=== PATIENT | female | born 1960 | race Caucasian/White ===

== ENCOUNTER 2023-11-15 10:42 | Outpatient (OUT) | payer BC, SELFPAY ==
[2023-11-15 12:13] LABS: Estimated Average Glucose 108 mg/dL; Glycohemoglobin A1C 5.4 % (4.5-6.2)
== END 2023-11-15 10:43 | disposition home or self-care (01) ==
LOC: LAB 10:47
PROVIDERS: PCP Family Medicine; Visit Provider Internal Medicine Cardiovascular Disease
DX: R73.03 Prediabetes (principal)
CPT/HCPCS: 36415; 83036

== ENCOUNTER 2025-03-13 09:43 | Outpatient (OUT) | payer OTHER, SELFPAY ==
--- NOTE | 2025-03-13 09:40 | NM_ITS ---
Patient Name: SAHARA BARRY MR#: [id number] : 1960 Exam Date: 03/13/2025 Ordering Doctor: MICHELLE NÚÑEZ RADIOLOGY REPORT PROCEDURE: NM RADHA PERF SPECT REST STR COMPARISON: None. INDICATIONS: PRE PROCEDURE CARDIOVASCULAR EXAM, CHEST PAIN, DYSPNEA TECHNIQUE: Exam Description: Stress/Rest one day protocol gated SPECT Rest Imagin.9 mCi Tc-99m Cardiolite IV on 03/13/2025 Stress Imaging 30.5 mCi Tc-99m Cardiolite IV on 03/13/2025 Exercise Protocol: 0.4 mg Lexiscan given IV Heart Rate (bpm): Rest: 51 Max: 100 PMHR: 63 Blood Pressure: Rest: 160/79 Max: 160/79 Symptoms: For more details, please see separate cardiac stress test report. FINDINGS: QUALITY OF STUDY: Good PERFUSION DEFECT: LOCATION: N/A SIZE: N/A SEVERITY: N/A TYPE: N/A WALL MOTION: Normal wall motion LV SIZE: 71 mL. TID / TCD: 0.9 LVEF: Calculated EF 80%. SUMMARY: Myocardial perfusion imaging study is normal CONCLUSION: 1. Myocardial perfusion is normal with soft tissue attenuation. 2. Global left ventricular systolic function is hyperdynamic; ejection fraction is 80%. This is likely an overestimate due to small heart size. 3. No evidence of significant transient ischemic dilatation. Dictated by: Marjan Carr M.D. on 03/14/2025 at 13:08 Approved by: Marjan Carr M.D. on 03/14/2025 at 13:11
--- OUTSIDE RECORDS SUMMARY | 2025-03-13 09:58 | XMS_ITS | CCD ---
Author Organization [facility] Care Team Providers Care Kinesiotherapist Name Role Phone RODNEY LAMB Attending Unavailable PETZNICK, ANIBAL Primary Care Unavailable RODNEY LAMB Admitting Unavailable RODNEY LAMB Attending Unavailable PETZNICK, ANIBAL Primary Care Unavailable RODNEY LAMB Attending Unavailable PETZNICK, ANIBAL Primary Care Unavailable RODNEY LAMB Attending Unavailable PETZNICK, ANIBAL Primary Care Unavailable PETZNICK, ANIBAL Primary Care Unavailable SYED ZARAGOZA Attending Unavailable RODNEY LAMB Attending Unavailable PETZNICK, ANIBAL Primary Care Unavailable Petdelioick, Anibal C Unavailable Unavailable Rodney Lamb Unavailable Unavailable PetdelioickAnibal C Primary Care Provider Rodney Lamb Unavailable Unavailable Santo, Harkeet Unavailable Unavailable [facility] Unavailable Unavailable Petznick, Anibal C Unavailable Unavailable Unavailable Unavailable Unavailable Louis Larson Unavailable Unavailable Unavailable SANTHOSH MARIA Consulting Unavailable ANIBAL JUAN Primary Care Unavailable RODNEY LAMB Admitting Unavailable RODNEY LAMB Attending Unavailable ART HIGHTOWER Consulting Unavailable RODNEY LAMB Referring Unavailable PETANIBAL SHAH Primary Care Unavailable Petznick Anibal MONDRAGON Primary Care Provider Petpablo, DO Ashton Primary Care Provider Petdelioick, DO Ashton Attending Provider [phone] Petznick, Anibal Lombardo Primary Care Provider Abbi ISRAEL, Angi Unavailable Thierry ISRAEL, Jeremias Unavailable Rocky Shields Unavailable Rlaeighzana Rex Unavailable Petpablo, Dr. Anibal Lombardo Primary Care Un available MD RODNEY LAMB Attending Dedra vailable Muoh, Denise Referring Unavailable Muoh, Denise Attending Unavailable Petznick, Dr. Anibal Lombardo Primary Care Un available ADONIS, MD RODNEY MENDEZ Attending Dedra vailable Petznick, Dr. Anibal Lombardo Primary Care Un available Petznick, Dr. Anibal Lombardo Primary Care Un available Santo, Dr. Glenna Kim Attending Unavai lable Petznick, Dr. Anibal Lombardo Primary Care Un available MD RODNEY LAMB Attending Dedra vailable ADONIS, MD RODNEY MENDEZ Attending Dedra vailable Petznick, Dr. Anibal Lombardo Primary Care Un available Petznick, DO Anibal [facility] Care Provider MD Everardo Phillips Emergency Provider Rodney Lamb Attending Unavailable Rodney Lamb Referring Unavailable Petznick, Dr. Anibal Lombardo Primary Care Un available Muoh, Dr. Denise Stafford Attending Unavailab le Petznick, Dr. Anibal Lombardo Referring Un available Petznick, Dr. Anibal Lombardo Primary Care Un available Becerra, Dr. Chase Attending Unavailable Becerra, Dr. Chase Referring Unavailable Petznick, Dr. Anibal Lombardo Primary Care Un available Somasundaram, Dr. Lees Attending Unav ailable Petznshane, Dr. Anibal Lombardo Primary Care Un available Rodney Lamb Attending Unavailable Rodney Lamb Referring Unavailable Petznick, Dr. Anibal Lombardo Primary Care Un available Rodney Lamb Attending Unavailable Rodney Lamb Referring Unavailable Petznick, Dr. Anibal Lombardo Primary Care Un available MUTNAL, AMAR Attending Unavailable MUTNAL, AMAR Admitting Unavailable PETZNICK, ANIBAL LOMBARDO Primary Care Unavai lable Petznick DO, Anibal Lombardo Primary Care Provid er Thierry ISRAEL, Jeremias Unavailable Petznick DO, Anibal Lombardo Primary Care Provid er OLEG MALLOY Attending Unavailabl e PETZNICK, ANIBAL LOMBARDO Primary Care UnaBENJI Bowden Referring Unavailable OLEG MALLOY Referring Unavailabl e PETZNICK, ANIBAL LOMBARDO Primary Care Unavai labsera Petznick, DO Anibal Primary Care Provider MD Zoey Gonzalez Attending Provider Petznick DO, Anibal C Unavailable Petznick DO, Anibal C Primary Care Provider [phone] Petznick DO, Anibal C Primary Care Provider WU Mckee Attending Provider Petznick DO, Anibal Lombardo Primary Care Provid er SARABJIT PHILLIPS Attending Unavailable SURESH, RENA Referring Unavailable PETZNICK, ANIBAL C Primary Care Unavailable RODNEY LAMB Referring Unavailable PETZNICK, ANIBAL C Primary Care Unavailable PETZNICK, ANIBAL C Primary Care Unavailable SYED ZARAGOZA Attending Unavailable SURESH, RENA Attending Unavailable SURESH, RENA Referring Unavailable PETZNICK, ANIBAL C Primary Care Unavailable SURESH, RENA Referring Unavailable PETZNICK, ANIBAL C Primary Care Unavailable SCOOBY BECERRAA Attending Unavailable PETZNICK, ANIBAL C Primary Care Unavailable Petznick DO, Ainbal C Primary Care Provider Petznick DO, Anibal Primary Care Provider Galen ISRAEL, Immike Attending Provider Petznick DO, Anibal Primary Care Provider Galen ISRAEL, Immike Attending Provider Petznick DO, Anibal Primary Care Provider Galen ISRAEL, Immike Attending Provider [phone] Petznick, Anibal Primary Care Unavailable Asaad, Imad Admitting Unavailable Asaad, Imad Attending Unavailable Petznick, Anibal Primary Care Unavailable Asaad, Imad Admitting Unavailable Asaad, Imad Attending Unavailable Asaad , Immike Other Provider Rex Mckee APRN Attending Provider PetAnibal shah DO Primary Care Provider [phone] Petznick DOAnibal Primary Care Provid er Sultan ISRAEL, Samuel Unavailable NONE, NONE Unavailable Unavailable Petznick, Anibal C Unavailable [phone] RODNEY LAMB Attending Unavailable PETZNICK, ANIBAL Álvarez Primary Care Unavailable RODNEY LAMB Referring Unavailable PETZNICK, ANIBAL Álvarez Primary Care Unavailable RODNEY LAMB Attending Unavailable PETPABLO, ANIBAL Álvarez Primary Care Unavailable PERHALEXANDRA, CHRIS Anne Referring Unavailable PETZNICK, ANIBAL LOMBARDO Primary Care JOSH El Referring Unavailable PETZNICK, ANIBAL LOMBARDO [facility] PER[facility]ACHRIS Referring Unavailable PETZNICK, ANIBAL LOMBARDO Primary Care Unavahina lable MICHELLE NÚÑEZ Referring Unavailable NIYA, MICHELLE Admitting Unavailable NIYA, MICHELLE Attending Unavailable NIYA, MICHELLE Referring Unavailable NIYA, MICHELLE Attending Unavailable NIKITA, LONA Referring Unavailable NIYA, MICHELLE Referring Unavailable NIYA, MICHELLE Attending Unavailable NIYA, MICHELLE Referring Unavailable NIYA, MICHELLE Referring Unavailable NIYA, MICHELLE Referring Unavailable NIYA, MICHELLE Referring Unavailable NIYA, MICHELLE Referring Unavailable NIYA, MICHELLE Referring Unavailable ROBBIE, FARSHAD Attending Unavailable NIYA, MICHELLE Referring Unavailable NIYA, MICHELLE Referring Unavailable NIYA, MICHELLE Referring Unavailable NIYA, MICHELLE Referring Unavailable NIYA, MICHELLE Referring Unavailable NIKITA, LONA Referring Unavailable NIKITA, LONA Referring Unavailable NIYA, MICHELLE Referring Unavailable NIYA, MICHELLE Referring Unavailable Petznick DO, Anibal Álvarez Unavailable VANDANA JUAN Attending Unavailable PETZNICK, ANIBAL Álvarez Referring Unavailable PETZNICK, ANIBAL Álvarez Attending Unavailable PETZNICK, ANIBAL Álvarez Referring Unavailable PETZNICK, ANIBAL Álvarez Referring Unavailable GRISELDA OTRIZ Attending Unavailable JOSH MCGOWAN Referring Unavailable GRISELDA ORTIZ Attending Unavailable JOSH MCGOWAN Referring Unavailable ORTIZGRISELDA Attending Unavailable BERENGER, JOSH Grijalva Referring Unavailable ORTIZGRISELDA Attending Unavailable BERENGER, JOSH Grijalva Referring Unavailable ORTIZ, GRISELDA Miles Attending Unavailable BERENGER, JOSH G Referring Unavailable ORTIZ, GRISELDA Miles Attending Unavailable BERENGER, JOSH Grijalva Referring Unavailable DEPOYTERRA Attending Unavailable [place]ST[place] Attending Unavailable BERENGER, JOSH Grijalva Referring Unavailable ORTIZ, GRISELDA Miles Attending Unavailable ADONISRODNEY RUIZ Referring Unavailable PETZNICK, ANIBAL Álvarez Attending Unavailable PETZNICK, ANIBAL Álvarez Referring Unavailable TIMMISJASON Attending Unavailable PETZNICK, ANIBAL Álvarez Referring Unavailable PETZNICK, ANIBAL Álvarez Attending Unavailable WESTBROOK, NICO Attending Unavailable BERENGER, JOSH Grijalva Referring Unavailable WESTBROOK, NICO Attending Unavailable ADONISRODNEY Referring Unavailable WESTBROOK, NICO Attending Unavailable BERENGER, JOSH Grijalva Referring Unavailable WESTBROOK, NICO Attending Unavailable ADONIS, RODNEY Arguello Referring Unavailable WESTBROOK, NICO Attending Unavailable BERENGERJOSH Referring Unavailable PERHALA, CHRIS Anne Attending Unavailable PETZNICK, ANIBAL LOMBARDO Primary Care Unavai lable PERHALA, CHRIS Anne Referring Unavailable PETZNICK, ANIBAL LOMBARDO Primary Care Unavalentine marxle ELSHEKEYSHAWN BULL Attending Unavailable PETZNICK, ANIBAL LOMBARDO Primary Care Unavahina marxle ELSHEKEYSHAWN BULL Referring Unavailable PETZNICK, ANIBAL LOMBARDO Primary Care Unavai lable BERENGERJOSH Attending Unavailable PERHALA, CHRIS S Referring Unavailable PETZNICK, ANIBAL LOMBARDO Primary Care Unavai lable PERHALA, CHRIS Anne Attending Unavailable PETZNICK, ANIBAL LOMBARDO Primary Care Unavahina marxle DODIEELYAMILET CLEMONS Attending Unavailable BERENGER, JOSH Grijalva Referring Unavailable PETZNICK, ANIBAL LOMBARDO Primary Care Unavai lable ABDELHAMIDYAMILET Attending Unavailable BERENGER, JOSH Grijalva Referring Unavailable PETZNICK, ANIBAL LOMBARDO Primary Care Unavai lable PERHALA, CHRIS Anne Attending Unavailable PETZNICK, ANIBAL LOMBARDO Primary Care Unavai lable PERHALA, CHRIS Anne Attending Unavailable PETZNICK, ANIBAL LOMBARDO Primary Care Unavai lable Allergies Allergy ClassificationReported Allergen(s)Allergy TypeDate of OnsetReaction(s) Facility (20 sources)tofacitinib; Translations: [TOFACITINIB]Drug [id number] [facility] ([facility])tofacitinibDrug Eaioelw81-98-6821HvcjtdgaQSSO Healthcare Work Phone: Medications Current Medications MedicationDrug Class(es)DatesSig (Normalized)Sig (Original)acetaminophen 500 mg oral tablet (5 sources)Start: 65-35-6742eseckqpvstgpe (Tylenol) 500 MG tabletStart: 54-21-5638znqnkngnguseu (TYLENOL) tablet 650 mgStart: 12-24-2021 End: 74-93-6401ysygsysyyyobu (TYLENOL) tablet 1,000 mgStart: 67-19-2392hbbj 650 mg by mouth every six hours, then take 4000 mg by mouth every twenty-four hours 650 mg, Oral, EVERY 6 HOURS, First dose on Nella 11/15/19 at 1300 Maximum dose of acetaminophen is 4000 mg from all sources in 24 hours. Post-opStart: 11-15-2019 End: 43-42-1995ffgpnjucngidk (TYLENOL) tablet 1,000 [id number] 200 actuat albuterol 0.09 mg/actuat metered dose inhaler (20 sources)beta2-Adrenergic AgonistStart: 01-26-0317adxwdvlrd HFA 90 mcg/act inhaler 06/18/2022 ActiveStart: 62-16-4922gikbqqwsr HFA (PROVENTIL HFA, VENTOLIN HFA) 90 mcg/actuation inhaler 06/18/2022 ActiveStart: 75-75-6526Xdufdgzba Sulfate HFA 108 (90 Base) MCG/ACT Inhalation Aerosol Solution as needed Quantity: 0 Refills: 0 Ordered: 18-Jun-2022 DO Start : 18-Jun-2022 Active ascorbic acid 500 mg oral tablet (20 sources)Vitamin CStart: 59-21-6227lpxp 1 tablet by mouth twice daily at mealtimeascorbic acid, vitamin C, (VITAMIN C) 500 mg tablet Take 1 tablet by mouth two times a day with meals. 60 tablet 12/30/2022 ActiveComment on above: Take 1 tablet by mouth two times a day with meals.aspirin 81 mg delayed release oral tablet (18 sources)Platelet Aggregation Inhibitor, Nonsteroidal Anti-inflammatory Drug Start: 12-24-2021 End: 79-74-4767bfazcat, enteric coated (ASPIRIN, ENTERIC COATED) 81 mg EC tablet Take by mouth. 12/24/2021 ActiveStart: 39-38-1007Zeqdkdz Adult Low Strength 81 MG Oral Tablet Delayed Release Quantity: 60 Refills: 0 Ordered: 24-Dec-2021 DO Start : 24-Dec-2021 CompleteStart: 11-15-2019 End: 15-81-6033xhrn 1 tablet by mouth twice dailyaspirin (ASPIRIN CHILDRENS) 81 MG chewable tablet Take 1 tablet by mouth 2 times daily 60 tablet 0 11/15/2019 ActiveStart: 11-15-2019 End: 38-87-1840siyi 81 mg by mouth twice daily81 mg, Oral, 2 TIMES DAILY, First dose on Nella 11/15/19 at 1300, For 30 days Do not crush or break. Post-op End: 21-89-7413rctl 1 tablet by mouth once dailyaspirin 81 mg EC tablet Take 1 tablet (81 mg) by mouth once daily. 09/26/2023 Discontinued (Discontinued by another clinician)atogepant (QULIPTA) 60 mg tablet (20 sources)take 1 tablet by mouth once dailyatogepant (QULIPTA) 60 mg tablet Take 60 mg by mouth once daily. ActiveAtogepant 60 MG tablet (20 sources)take 1 tablet by mouth in the morningAtogepant 60 MG tablet Take 60 mg by mouth in the morning. Activecalcium carbonate 500 mg oral tablet (20 sources)calcium carbonate (Os-Alfonzo) 1250 (500 Ca) MG tablet Daily. Active cefdinir 300 mg oral capsule (2 sources)Cephalosporin AntibacterialStart: 02-01-2024 End: 91-96-4827qgre 1 capsule by mouth in the morningcefdinir (Omnicef) 300 MG capsule Indications: Non-recurrent acute suppurative otitis media of bothears without spontaneous rupture of tympanic membranes Take 1 capsule (300 mg) by mouth in the morning and 1 capsule (300 mg) before bedtime. Do all this for 10 days. 20 capsule 02/01/2024 02/11/2024ctivecelecoxib 200 mg oral capsule (20 sources)Nonsteroidal Anti-inflammatory DrugStart: 04-17-2024 End: 44-59-5590sdsb 1 capsule by mouth once daily at mealtime as needed for pain Celecoxib 200 mg capsule Active 200 MG PO .as needed as needed for pain April 25, 2024 1:00am FreeTextSi capsule with food Orally Once a day as needed; Note: Source Status: Taking; Provider: Rafi Goodman ( ) Complies with drug therapyStart: 82-70-3702kuxrlyvfj (CeleBREX) 200 MG capsule Indications: Hamstring injury, unspecified laterality, sequela 1 pill bid as needed for pain 60 capsule 0 03/17/2023 ActiveStart: 24-77-8546oley 1 capsule by mouth twice daily as neededCelecoxib 100 MG Oral Capsule TAKE 1 CAPSULE TWICE DAILY NEEDED. Quantity: 60 Refills: 0 Ordered: 08-Jan-2022 Rodney Lamb MD Start : 07-Jan-2022 ActiveStart: 12-24-2021 End: 89-17-3847ktqfuiwrp (CELEBREX) capsule 200 mgStart: 07-16-2021 End: 80-05-8304kptw 1 capsule by mouth once daily at mealtime as neededcelecoxib (CELEBREX) 200 mg capsule Celecoxib 200 mg capsule Active 200 MG PO .as needed as needed for pain April 25, 2024 1:00am FreeTextSi capsule with food Orally Once a day as needed; Note: Source Status: Taking; Provider: Rafi Goodman ( ) 07/16/2021 ActiveStart: 11-15-2019 End: 47-91-2529rahlcakgi (CELEBREX) capsule 400 mgcholecalciferol 0.025 mg oral capsule (20 sources)Vitamin DStart: 54-21-9302Wwqftalslszkbmg, Vitamin D3, 25 mcg (1,000 unit) cap Cholecalciferol (Vitamin D3) (Vitamin D3) 1,000 unit Capsule Active 1 CAP PO Daily March 15, 2017 1:00am 03/15/2017 Activecholecalciferol (Vitamin D-3) 50 MCG (2000 UT) capsule 1 capsule 1 (one) time each day at the same time. Activeciprofloxacin 250 mg oral tablet (2 sources)Quinolone AntimicrobialStart: 04-29-2023 End: 55-30-1218uzrs 1 tablet by mouth in the morningciprofloxacin (Cipro) 250 MG tablet Indications: Urinary frequency Take 1 tablet (250 mg) by mouth in the morning and 1 tablet (250 mg) in the evening. Take after meals. Do all this for 3 days. 6 tablet 0 05/06/2023 05/09/2023 Activecodeine phosphate 2 mg/ml / guaiFENesin 20 mg/ml oral solution (2 sources)Opioid AgonistStart: 05-07-2024 End: 27-06-5824jvqn 5 mL by mouth four times daily as needed for cough guaiFENesin-codeine (Robitussin-AC) 100-10 MG/5ML syrup Indications: Influenza A Take 5 mL by mouth4 (four) times a day as needed for cough for up to 5 days 100 mL 05/07/2024 05/12/2024 Activecyclobenzaprine hydrochloride 10 mg oral tablet (20 sources)Muscle RelaxantStart: 11-19-2022 End: 27-38-3118uhfxkaodjbcltmr (Flexeril) 10 mg tablet Indications: Right knee pain, unspecified chronicity Take 1tablet (10 mg) by mouth as needed at bedtime for muscle spasms. 30 tablet 06/02/2023 ActiveStart: 64-27-0623bylu 1 tablet by mouth once daily at bedtimeCyclobenzaprine HCl - 10 MG Oral Tablet TAKE ONE TABLET BY MOUTH EVERY NIGHT AT BEDTIME Quantity: 30 Refills: 0 Ordered: 05-Feb-2022 Rodney Lamb MD Start : 07-Jan-2022 ActivediazePAM 5 mg oral tablet (4 sources)BenzodiazepineStart: 52-29-2742Ogmlcm 5 mg tablet Take 1 tablet by mouth single dose Take 1 tablet hour before procedure. Must have drivers' cash clerk. active Samuel Berry MD, [address] [place] [address] [facility] ClinicStart: 95-68-9812fjorfMSD 5 MG Oral Tablet Quantity: 14 Refills: 0 Ordered: 27-Aug-2022 DO Start : 27-Aug-2022 CompleteStart: 11-15-2019 End: 62-04-8646uxep 1 tablet by mouth every six hours as needed for anxiety diazePAM (VALIUM) 5 MG tablet Indications: Status post total left knee replacement Take 1 tablet bymouth every 6 hours as needed for Anxiety for up to 5 days. 20 tablet 0 11/16/2019 11/21/2019 Activedocusate sodium 100 mg oral tablet (20 sources)Start: 58-26-8195lgmh 1 tablet by mouth twice daily as needed docusate sodium (Colace) 100 MG tablet Take 100 mg by mouth 2 (two) times a day as needed 11/28/2023 ActiveStart: 12-30-2022 End: 20-01-6011fktm 1 capsule by mouth every twelve hours as neededdocusate sodium (COLACE) 100 mg capsule Take 1 capsule by mouth two times a day as needed for constipation. 60 capsule 0 12/30/2022 10/24/2023 DiscontinuedComment on above:Take 1 capsule by mouth two times a day as needed for constipation. docusate sodium 50 mg / sennosides, snf 8.6 mg oral tablet (10 sources)Start: 83-64-2698jcdhl-docusate (SENNA-S) 8.6-50 mg per tablet Take by mouth. 12/24/2021 ActiveStart: 12-24-2021 End: 48-15-7726iyrz 1 tablet by mouth twice dailysennosides-docusate sodium (SENOKOT-S) 8.6-50 MG tablet Take 1 tablet by mouth 2 times daily for 10days 20 tablet 0 12/24/2021 01/03/2022 ActiveStart: 50-12-3480Zuhtkvy S 8.6-50 MG Oral Tablet Quantity: 20 Refills: 0 Ordered: 28-Dec-2021 DO Start : 24-Dec-2021 CompleteStart: 69-31-5854shwx 1 tablet by mouth twice daily1 tablet, Oral, 2 TIMES DAILY, First dose on Nella 11/15/19 at 1300, Post-opergocalciferol 1.25 mg oral capsule (7 sources)Provitamin D2 CompoundStart: 08-31-2024 End: 15-49-3065wglogbbcondzjj 50,000 unit capsule (VITAMIN D2, DRISDOL) Take 1.25 mg by mouth. 08/31/2024 Activeescitalopram 20 mg oral tablet (20 sources)Serotonin Reuptake InhibitorStart: 53-62-8936nffz 1 tablet by mouth once dailyescitalopram (Lexapro) 20 MG tablet Indications: Anxiety TAKE 1 TABLET BY MOUTH DAILY 90 tablet 1 10/19/2024 ActiveStart: 46-63-5669exnk 20 mg by mouth once daily20 mg, Oral, NIGHTLY, First dose on Nella 12/24/21 at 2100, Until DiscontinuedStart: 55-00-0348fxns 5 mg by mouth once daily5 mg, Oral, NIGHTLY, First dose on Nella 11/15/19 at 2100Escitalopram Oxalate 20 MG Oral Tablet Quantity: 0 Refills: 0 Ordered: 16-Jul-2021 DO Activetake 1 tablet by mouth once dailyescitalopram (LEXAPRO) 5 MG tablet Take 5 mg by mouth nightly 0 Active Comment on above:Take 20 mg by mouth daily at bedtime. estradiol 0.1 mg/ml vaginal cream (20 sources)EstrogenStart: 06-06-2023 End: 29-82-1148qyrlyjaiw (Estrace) 0.1 MG/GM vaginal cream Indications: Vaginal atrophy Insert 1 g into the vagina2 (two) times a week 42.5 g 1 06/06/2023 06/05/2024 ActiveStart: 03-15-2017 End: 55-99-4821Qqmswvkzl (Vivelle-Dot) 0.075 mg/24 hr Patch Semiweekly Discontinued 1 PATCH TRANSDERML Twice a Week March 15, 2017 1:00am July 29, 2017 11:12am End: 47-38-1950lczdvzrkl (VIVELLE-DOT) 0.05 MG/24HR Place 1 patch onto the skin twice a week. 0 12/17/2021 Discontinued (LIST CLEANUP)2 ml famotidine 10 mg/ml injection (1 source)Histamine-2 Receptor AntagonistStart: 15-52-625464 mg, Intravenous, 2 TIMES DAILY PRN, for GERD or Indigestion., Starting Nella 11/15/19 at 1237 Admini ster over 2 minutes. Post-opfluconazole 150 mg oral tablet (1 source)Azole AntifungalStart: 88-67-2588qucdndcuqlc (Diflucan) 150 MG tablet Indications: Dysuria 1 pill now may repeat 48 rhs 2 tablet 1 04/29/2023 Active fluticasone propionate 0.05 mg/actuat metered dose nasal spray (20 sources)CorticosteroidStart: 79-09-6451tmywtutggne (FLONASE) 50 mcg/actuation nasal spray 1 spray. 08/03/2022 ActiveStart: 05-65-1490Tbllolnebnn Propionate 50 MCG/ACT Nasal Suspension USE DIRECTED. Quantity: 0 Refills: 0 Ordered:03-Aug-2022 DO Start : 03-Aug-2022 Activefluticasone (Flonase) 50 MCG/ACT nasal spray 1 (one) time each day at the same time. Activehydroxychloroquine sulfate 200 mg oral tablet (20 sources)Antimalarial, Antirheumatic AgentStart: 08-01-2023 End: 08-74-1548cxlq 2 tablets by mouth once dailyhydrOXYchloroQUINE (PLAQUENIL) 200 mg tablet Indications: Rheumatoid arthritis involving multiple sites with positive rheumatoid factor (HCC) Take two tabs by mouth daily 180 tablet 1 12/26/2023 ActiveStart: 07-16-2021 End: 86-81-2616bwlo 1 tablet by mouth twice dailyhydroxychloroquine (Plaquenil) 200 mg tablet Take 1 tablet (200 mg) by mouth 2 times a day. 07/16/2021 Active Start: 01-22-2017 End: 13-65-8108uckmmuoxxggasavczt (PLAQUENIL) 200 mg tablet Take 300 mg by mouth once daily. 0 01/22/2017 06/28/2022 Discontinued (Clinical Decision)Start: 01-22-2017 End: 94-39-3820unms 1 tablet by mouth once dailyhydroxychloroquine (Plaquenil) 200 MG tablet Take 200 mg by mouth Daily 09/15/2023 Activehydroxychloroquine (Plaquenil) 200 MG tablet every 12 (twelve) hours. 0 ActiveComment on above:Take 300 mg by mouth once daily. Take 1 tablet by mouth twice daily.lactobacillus rhamnosus gg [id number] unt oral capsule (11 sources)Start: 26-20-0491grdhdwydctqpb rhamnosus (CULTURELLE) 10 billion cell capsule Lactobacillus Rhamnosus Gg (Culturelle) 10 billion cell capsule Active 1 CAP PO Daily April 25, 2024 1:00am 04/25/2024 ActiveStart: 33-32-3036kibu 1 capsule by mouth once dailyLactobacillus Rhamnosus Gg (Culturelle) 10 billion cell capsule Active 1 CAP PO Daily April 1:00am Complies with drug therapyCulturelle Activeleflunomide 10 mg oral tablet (20 sources)Antirheumatic AgentStart: 08-01-2023 End: 64-71-3879hcit 1 tablet by mouth once daily at mealtimeleflunomide (Arava) 10 MG tablet Take 1tab daily by mouth with food. No alcohol. Hold if on antibiot ics or ill. 08/01/2023 ActiveLosartan (1 source)Angiotensin 2 Receptor BlockerStart: 92-93-1192wpwxkrci (COZAAR) tablet 50 mgmagnesium hydroxide 80 mg/ml oral suspension (1 source)Start: 05-03-9717dugt 30 mL by mouth once daily as needed for qlupkdfpfstd24 mL, Oral, DAILY PRN, Constipation, Starting Nella 11/15/19 at 1237 First line therapy for constipation. Post-opmeclizine hydrochloride 25 mg oral tablet (7 sources)AntiemeticStart: 34-68-2391tlupunowt (ANTIVERT) 25 mg tab Take by mouth. 08/03/2022 ActiveStart: 23-15-2592Jmkynbupt HCl - 25 MG Oral Tablet Quantity: 20 Refills: 0 Ordered: 03-Aug-2022 DO Start : 8-Rgf-9991Djnlfdpt meloxicam 15 mg oral tablet (20 sources)Nonsteroidal Anti-inflammatory DrugStart: 08-01-2023 End: 11-58-5208corb 1 tablet by mouth once dailymeloxicam (MOBIC) 15 mg tablet Indications: Rheumatoid arthritis involving multiple sites with positive rheumatoid factor (HCC) take 1 tablet by mouth daily 90 tablet 1 12/15/2023 Activemethocarbamol 750 mg oral tablet (2 sources)Muscle RelaxantStart: 12-18-2024 End: 96-22-2504ghnnswbtymrxt 750 mg tablet 1 tablet by mouth three times a day as needed spasms for 30 days uktbem5383/12/18 - Samuel Berry MD, [address] [facility] [address] [facility]24 hr metoprolol succinate 50 mg extended release oral tablet (20 sources)beta-Adrenergic BlockerStart: 89-11-9194qzyt 1 tablet by mouth once dailymetoprolol succinate XL (Toprol-XL) 50 mg 24 hr tablet Indications: Essential hypertension Take 1 tablet (50 mg) by mouth once daily. 90 tablet 3 10/27/2023 ActiveStart: 72-52-7205ieus 1 tablet by mouth every twenty-four hours metoprolol succinate ER (TOPROL XL) 50 mg 24 hr tablet Take 25 mg by mouth. 10/27/2023 ActiveStart: 09-26-2023 End: 35-55-5439mcvt 1 tablet by mouth once dailymetoprolol succinate XL (Toprol- XL) 25 MG 24 hr tablet Take 25 mg by mouth Daily 09/26/2023 ActiveStart: 74-79-5710qhmz 1 capsule by mouth once dailyMetoprolol Succinate 25 mg capsule,sprinkle,ER 24hr Active 25 MG PO Daily June 03, 2023 1:00am Misha eTextSi capsule Orally Once a day; Note: Source Status: Taking; Provider: Rafi Goodman ( ) Complies with drug therapyStart: 11-29-2022 End: 85-57-7716osjd 1 tablet by mouth once dailyMetoprolol Succinate ER 50 MG Oral Tablet Extended Release 24 Hour Take 1 tablet daily Quantity: 90Refills: 3 Ordered: 29-Nov-2022 Rena Becerra MD Start : 29-Nov-2022 Activemetoprolol tartrate, short acting, (LOPRESSOR) 50 mg tablet Take 25 mg by mouth twice daily. Activetake 1 tablet by mouth every twenty-four hours in the morning metoprolol succinate XL (Toprol-XL) 50 MG 24 hr tablet Take 50 mg by mouth in the morning. 0 Activetake 1 capsule by mouth once dailyMetoprolol Succinate 50 MG 1 capsule Orally Once a day ActiveComment on above:Take 25 mg by mouth twice daily.1 ml morphine sulfate 2 mg/ml cartridge (2 sources)Opioid AgonistStart: 42-03-1862rckxgdbg (PF) injection 2 mgStart: 92-90-0533ryik 2 mg by mouth every three hours as needed for pain2 mg, Intravenous, EVERY 3 HOURS PRN, Pain Moderate (4-6), Starting Nella 11/15/19 at 1237 If oral andIV narcotics ordered, use oral first and only use IV if oral is ineffective or cannot take oral. Do Not give oral and IV within 1 hour of each other unless specifically ordered. Post-opMultiple Vitamin (Multi Vitamin) tablet (20 sources)Multiple Vitamin (Multi Vitamin) tablet 1 (one) time each day at the same time. ActiveMultiple Vitamin (Multi Vitamin) tablet 1 (one) time each day at the same time. 0 ActiveMultiple Vitamin (MULTIVITAMIN ADULT PO) (1 source)take 1 tablet by mouth once dailyMultiple Vitamin (MULTIVITAMIN ADULT PO) Take 1 tablet by mouth daily 0 Activemultivitamin tablet (20 sources)Start: 40-66-5685muqj 1 tablet by mouth once dailymultivitamin tablet Take 1 tablet by mouth once daily. 30 tablet 12/30/2022 ActiveStart: 01-31-9539xhlc 1 tablet by mouth once dailymultivitamin tablet Take 1 tablet by mouth once daily. 30 tablet 0 12/30/2022 ActiveComment on above:Take 1 tablet by mouth once daily.Zuviamthbktfd-Eqxjqjll-Quulms (MULTIVITAMIN 50 PLUS) tab (20 sources)Ipeknvdtewhwd-Onhjugry-Rlazxb (MULTIVITAMIN 50 PLUS) tab Take 1 tablet by mouth once daily. AtbpnxAktfsgmomouiy-Ctplhopi-Ybbamn (MULTIVITAMIN 50 PLUS) tab Take 1 tablet by mouth once daily. 0 ActiveComment on above:Take 1 tablet by mouth once daily.nirmatrelvir and ritonavir (PAXLOVID) 300 mg (150 mg x 2)-100 mg tablets in a dose pack (6 sources)Start: 52-22-9179xsrtbxnqwtnr and ritonavir (PAXLOVID) 300 mg (150 mg x 2)-100 mg tablets in a dose pack Take by mouth. 07/16/2022 Active nitrofurantoin, macrocrystals 25 mg / nitrofurantoin, monohydrate 75 mg oral capsule (2 sources)Nitrofuran AntibacterialStart: 01-04-2024 End: 89-68-6868dwkx 1 capsule by mouth in the morningnitrofurantoin, macrocrystal-monohydrate, (Macrobid) 100 MG capsule Indications: Acute cystitis with hematuria Take 1 capsule (100 mg) by mouth in the morning and 1 capsule (100 mg) before bedtime. Do all this for 7 days. 14 capsule 01/04/2024 01/11/2024 Activeomeprazole 40 mg delayed release oral capsule (2 sources)Proton Pump InhibitorStart: 67-53-2829zegn 1 capsule by mouth twice dailyOmeprazole 40 mg capsule,delayed release(DR/EC) Active 40 MG PO Twice daily 60 August 22, 2024 12:00am Complies with drug therapyStart: 03-15-2017 End: 25-73-7822mqdd 1 tablet by mouth once dailyOmeprazole Magnesium (Prilosec Otc) 20 mg Tablet,Delayed Release (Dr/Ec) Discontinued 20 MG PO Daily March 15, 2017 1:00am July 05, 2020 4:17pmondansetron 4 mg disintegrating oral tablet (20 sources)Serotonin-3 Receptor AntagonistStart: 92-14-8326epztdfxymwx ODT (Zofran-ODT) 4 MG disintegrating tablet 11/29/2023 ActiveStart: 12-24-2021 End: mg, IntraVENous, ONCE PRN, 1 dose, Starting on Nella 12/24/21 at 1023, Until Nella 12/24/21 at 1042, Nausea Initial antiemetic therapy. PACU only Start: 11-15-2019 End: 36-94-6370qgvffdyctqo (ZOFRAN) injection 4 mgStart: 11-15-2019 End: 90-50-6546ygfwgxkzpph (ZOFRAN) injection 4 mgondansetron (ZOFRAN-ODT) disintegrating tablet 4 mg (2 sources)Start: 88-72-4534bdsjyrunjqw (ZOFRAN-ODT) disintegrating tablet 4 mg Start: 69-41-2056isyfukgkmzx (ZOFRAN-ODT) disintegrating tablet 4 mg24 hr oxybutynin chloride 10 mg extended release oral tablet (20 sources)Cholinergic Muscarinic AntagonistStart: 02-02-2024 End: 09-93-3385qoyy 1 tablet by mouth once dailyoxybutynin XL (Ditropan-XL) 10 MG 24 hr tablet Indications: Urinary frequency Take 1 tablet (10 mg)by mouth Daily Do not crush, chew, or split. 90 tablet 3 02/02/2024 02/01/2025 Active Start: 91-77-7736uoom 1 tablet by mouth every twenty-four hoursoxybutynin ER (DITROPAN XL) 10 mg 24 hr tablet Oxybutynin Chloride 10 mg tablet extended release 24hr Active 10 MG PO Daily April 25, 2024 1:00am 02/02/2024 Active oxyCODONE hydrochloride 5 mg oral tablet (4 sources)Opioid AgonistStart: 12-24-2021 End: 02-85-5910zovu 1 tablet by mouth every six hours as needed for pain oxyCODONE (ROXICODONE) 5 MG immediate release tablet Indications: Acute post- operative pain Take 1 tablet by mouth every 6 hours as needed for Pain for up to 7 days. 28 tablet 0 12/24/2021 12/31/2021ctiveStart: 44-54-1235yurELYSHS (ROXICODONE) immediate release tablet 5 mgStart: 12-24-2021 End: 24-13-9249ummUTXLKS (OXYCONTIN) extended release tablet 10 mgStart: 11-15-2019 End: 27-14-2515jolYYXPEL (OXYCONTIN) extended release tablet 10 mgpolyethylene glycol 3350 60317 mg powder for oral solution (1 source)Osmotic LaxativeStart: 28-64-3806hvdhripwiein glycol (GLYCOLAX) packet 17 gpotassium chloride 20 meq extended release oral tablet (20 sources)Start: 14-44-6264baim 1 tablet by mouth once dailyPotassium Chloride 20 mEq tablet extended release Active 20 MEQ PO Daily April 25, 2024 1:00am Complies with drug therapyStart: 11-21-2023 End: 33-50-9647gzmsvzhrf chloride CR (Klor-Con M20) 20 MEQ ER tablet Take 40 mEq by mouth in the morning. 11/21/2023 01/04/2024 Discontinued (Therapy completed) Start: 16-03-5007qvmm 1 tablet by mouth twice dailypotassium chloride CR 20 mEq ER tablet Take 1 tablet (20 mEq) by mouth 2 times a day. 08/23/2023 ActiveStart: 56-60-1275kshllemyj chloride 20 mEq TbER Potassium Chloride 20 mEq tablet extended release Active 20 MEQ PO Daily April 25, 2024 1:00am 11/29/2022 ActiveStart: 33-66-8274gprmchbsv chloride CR (Klor-Con M20) 20 MEQ ER tablet Take 20 mEq by mouth in the morning. 0 11/29/2022 ActiveStart: 11-29-2022 End: 75-99-7153kzaw 20 mEq by mouth once dailypotassium chloride 20 mEq TbER Take 20 mEq by mouth once daily. 0 11/29/2022 10/24/2023 DiscontinuedStart: 11-02-5193qbpx 2 tablets by mouth once dailyPotassium Chloride ER 20 MEQ Oral Tablet Extended Release TAKE 2 TABLET Daily Quantity: 180 Refills: 3 Ordered: 29-Nov-2022 Rena Becerra MD Start : 29-Nov-2022 ActivePotassium Chloride Active Comment on above:Take 20 mEq by mouth once daily.predniSONE 5 mg oral tablet (20 sources)Start: 10-25-2023 End: 02-26-8782ljutshMKHY (Deltasone) 5 MG tablet Daily as needed 12/15/2023 ActiveStart: 10-25-2023 End: 06-85-4860fiqj 3 tablets by mouth once daily as neededpredniSONE (DELTASONE) 5 mg tablet Indications: Rheumatoid arthritis involving multiple sites with positive rheumatoid factor (HCC) TAKE UP TO 3 TABLETS BY MOUTH DAILY NEEDED 90 tablet 1 10/19/2024 ActiveStart: 23-07-6343jqopdsFNVB 20 MG Oral Tablet Quantity: 11 Refills: 0 Ordered: 15-Nov-2022 DO Start : 15-Nov-2022 Com pleteStart: 07-78-3698ywabfgCVOS 5 MG Oral Tablet 15mg(3 pills) for 4 days then 10mg (2 pills) daily x 3 days and 5 mg (1)x 3 days and stop Quantity: 21 Refills: 0 Ordered: 30-Sep-2021 Denise Cardoza DO Start : 65-Jna-4397LmrmrsPtqft: 43-31-8865dcxnlzNNFP 10 MG Oral Tablet TAKE 3 TABLETS FOR 5 DAYS, 2 TABLETS FOR 5 DAYS, 1 TABLET FOR 5 DAY, 1/2 PILL X 5 DAYS AND THEN STOP Quantity: 40 Refills: 0 Ordered: 16-Jul-2021 Denise Cardoza DO Start : 16-Jul-2021 ActiveStart: 01-22-2017 End: 47-69-9709bigg 1 tablet by mouth three times daily as needed for pain Prednisone 5 mg Tablet Discontinued 5 MG PO Three times daily as needed for Pain, Mild January 22, 2017 12:00am April 05, 2019 7:29amQUEtiapine 25 mg oral tablet (20 sources)Atypical AntipsychoticStart: 40-99-3052gvql 1 tablet by mouth once dailyQUEtiapine (SEROquel) 25 MG tablet Indications: Major depressive disorder, single episode, mild TAKE 1 TABLET BY MOUTH DAILY 90 tablet 10/19/2024 Active QUEtiapine Fumarate 25 MG Oral Tablet Quantity: 0 Refills: 0 Ordered: 16-Jul-2021 DO ActiveComment on above:Take 25 mg by mouth at bedtime as needed. Take 1-2 tabs as needed for sleep 72 hr scopolamine 0.0139 mg/hr transdermal system (1 source)AnticholinergicStart: 25-07-7280edtayyilypl (TRANSDERM-SCOP) transdermal patch 1 patch5 ml sodium chloride 9 mg/ml injection (5 sources)Start: .9 % sodium chloride infusionStart: 12-24-2021 sodium chloride flush 0.9 % injection 5-40 mLStart: 43-02-455022 mL, Intravenous, EVERY 12 HOURS SCHEDULED (2 times per day), First dose on Nella 11/15/19 at 2100, Post-opStart: 24-96-4858ecvi 10 mL intravenous route once10 mL, Intravenous, PRN, Line Care, Starting Nella 11/15/19 at 1237 After every IV line use Post-opsucralfate 1000 mg oral tablet (20 sources)Aluminum ComplexStart: 94-59-2568rmvrijcyvw (CARAFATE) 1 gram tablet Take by mouth every 12 hours. 05/11/2021 ActiveStart: 39-76-3182ulmz 1 tablet by mouth every twelve hoursSucralfate 1 GM 1 TABLET Orally Twice a day for 30 days May, Not-Taking/PRNStart: 23-47-4389eewb 1 tablet by mouth every twelve hoursSucralfate 1 GM 1 TABLET Orally Twice a day for 30 days May, ActiveSucralfate 1 GM Oral Tablet Quantity: 0 Refills: 0 Ordered: 16-Jul-2021 DO ActivetiZANidine 2 mg oral tablet (14 sources)Central alpha-2 Adrenergic AgonistStart: 37-03-1460fqCSIrapwn HCl - 2 MG Oral Tablet Quantity: 90 Refills: 0 Ordered: 15-Nov-2022 DO Start : 15-Nov-2022 ActiveStart: 12-24-2021 End: 35-02-4916waZJFvugcu (ZANAFLEX) 2 mg tablet Take by mouth. 12/24/2021 ActiveStart: 59-86-6852jiTXIwvfio HCl - 4 MG Oral Tablet Quantity: 20 Refills: 0 Ordered: 24-Dec-2021 DO Start : 24-Dec-2021 CompleteStart: 12-24-2021 End: 36-81-4869ehyu 1 tablet by mouth every six hours as needed for muscle spasmstiZANidine (ZANAFLEX) 4 MG tablet Take 1 tablet by mouth every 6 hours as needed (muscle spasm) 20 tablet 0 12/24/2021 12/29/2021 Active End: 22-80-1805tmhp 1 tablet by mouth every six hours as neededtiZANidine (ZANAFLEX) 4 MG tablet Take 4 mg by mouth every 6 hours as needed. 0 11/09/2019 DiscontinuedTrulance 3 MG (2 sources)take 1 tablet by mouth once dailyTrulance 3 MG 1 tablet Orally Once a day Kygiao72 hr upadacitinib 15 mg extended release oral tablet (20 sources)Start: 79-01-7264mqdu 1 tablet by mouth once dailyupadacitinib ER (RINVOQ) 15 mg tablet Indications: Rheumatoid arthritis involving multiple sites with positive rheumatoid factor (HCC) TAKE 1 TABLET BY MOUTH DAILY 30 tablet 2 11/29/2024 ActiveStart: 03-08-2024 End: 76-84-3836uxsb 1 tablet by mouth once dailyupadacitinib tablet ER 24 hr 15 mg (RINVOQ) Indications: Rheumatoid arthritis involving multiple sites with positive rheumatoid factor (HCC) Take 1 tablet by mouth once daily. 30 tablet 5 05/30/2024 11/26/2024 ActiveStart: 07-05-2020 End: 76-59-8325joda 1 tablet by mouth once dailyUpadacitinib (Rinvoq) 15 mg Tablet Extended Release 24 Hr Discontinued 15 MG PO Daily July 05, 2020 12:00am June 03, 2023 8:36pmtake 1 tablet by mouth every twenty-four hours upadacitinib ER (Rinvoq) 15 mg tablet extended release 24 hr Take 1 tablet (15 mg) by mouth. ActiveRinvoq 15 MG Oral Tablet Extended Release 24 Hour Quantity: 0 Refills: 0 Ordered: 16-Jul-2021 DO ActiveComment on above:Take 1 tablet (15 mg) by mouth once daily. Swallow whole; DO NOT crush, chew, or open.Take 15 mg by mouth once daily. Swallow whole; DO NOT crush, chew, or open.Take 1 tablet (15 mg) by mouth once daily.valACYclovir 1000 mg oral tablet (20 sources)Herpesvirus Nucleoside Analog DNA Polymerase Inhibitor, Herpes Simplex Virus Nucleoside Analog DNA Polymerase Inhibitor, Herpes Zoster Virus Nucleoside Analog DNA Polymerase InhibitorStart: 38-06-6281zrwb 2 tablets by mouth once daily at bedtimevalACYclovir (Valtrex) 1 g tablet Indications: Cold sore TAKE 2 TABLETS BY MOUTH EVERY MORNING AND BEFORE BEDTIME FOR 1 DAY 4 tablet 6 12/31/2024 ActiveStart: 12-15-2023 End: 54-79-6616kpxPLJdvomph (Valtrex) 1 g tablet 12/15/2023 08/29/2024 DiscontinuedStart: 14-40-8746sjcUTAztotzd (VALTREX) 1 gram tablet Take 1,000 mg by mouth. 05/12/2022 ActiveStart: 79-53-7675ifvYDBdnoojh HCl - 1 GM Oral Tablet Quantity: 4 Refills: 0 Ordered: 25-Jul-2022 DO Start : 12-May-2022 Complete valACYclovir (Valtrex) 1 g tablet TAKE 2 CAPLETS TWO TIMES A DAY FOR 1 DAY for 1 0 Activevalsartan 160 mg oral tablet (20 sources)Angiotensin 2 Receptor BlockerStart: 29-81-0146nwjy 0.5 tablet by mouth once dailyvalsartan (Diovan) 160 MG tablet Indications: Essential hypertension Take 0.5 tablets (80 mg) by mouth Daily 45 tablet 3 02/04/2025 ActiveStart: 74-21-4030ogsa 0.5 tablet by mouth once dailyvalsartan (Diovan) 160 MG tablet Indications: Essential hypertension TAKE 1/2 TABLET BY MOUTH DAILY45 tablet 3 11/28/2023 ActiveStart: 09-26-2023 End: 88-60-9416ooru 1 tablet by mouth once dailyvalsartan (Diovan) 80 mg tablet Indications: Essential hypertension Take 1 tablet (80 mg) by mouth once daily. 30 tablet 11 09/26/2023 ActiveStart: 06-02-2023 End: 72-08-0541tfpdbghui (DIOVAN) 160 mg tablet Valsartan 160 mg tablet Active 160 MG PO Daily June 03, 2023 1:00am 06/02/2023 ActiveStart: 12-24-2021 valsartan (DIOVAN) tablet 160 mg End: 92-17-3990FHVUIYWNB ORAL Take by mouth. 0 02/17/2023 Discontinued (Dose adjustment)VALSARTAN ORAL Take by mouth. 0 ActiveValsartan TABS Quantity: 0 Refills: 0 Ordered: 16-Jul-2021 DO ActiveVITAMIN D (ERGOCALCIFEROL) (ERGOCALCIFEROL) 06254 UNIT CAPS (2 sources)take 1 capsule by mouth every monthergocalciferol (vitamin D2) 1,250 mcg (50,000 unit) capsule 1 capsule by mouth once a month active Radha Minor [facility] PO (3 sources)take 1000 [IU] by mouth once dailyVITAMIN D PO Take 1,000 Units by mouth daily 0 ActiveWomens Multivitamin (5 sources)Womens Multivitamin Active Completed/Discontinued Medications MedicationDrug Class(es)DatesSig (Normalized)Sig (Original)1 ml abatacept 125 mg/ml auto-injector (4 sources)Selective T Cell Costimulation ModulatorStart: 05-26-2023 End: 72-57-1960oixuys 1 mL by subcutaneous injection every weekabatacept (ORENCIA CLICKJECT) 125 mg/mL auto-injector Indications: Rheumatoid arthritis involving multiple sites with positive rheumatoid factor (HCC) Inject 1 mL subcutaneously one time a week. 4 mL5 05/26/2023 08/01/2023 Discontinued (Discontinued by Patient)Comment on above:Inject 1 mL subcutaneously one time a week.acetaminophen 325 mg / HYDROcodone bitartrate 5 mg oral tablet (20 sources)Opioid AgonistStart: 11-19-2022 End: 20-22-1369adii 1 tablet by mouth every four to six hours as needed for pain Hydrocodone-Acetaminophen 5-325 mg tablet Discontinued 1 TAB PO EVERY 4-6 HOURS as needed for Pain 21 08November 19, 2022 June 03, 2023 8:36pmStart: 96-43-6924qcsr 1 tablet by mouth every eight hoursHYDROcodone-Acetaminophen 5- 325 MG Oral Tablet TAKE 1 TABLET Every 8 hours PRN Quantity: 20 Refills: 0 Ordered: 29-Jan-2022 Syed Zaragoza PA-C Start : 06-Jan-2022 ActiveStart: 89-00-3220qine 1 tablet by mouth every six hours as needed for painHYDROcodone- Acetaminophen 5-325 MG Oral Tablet TAKE 1 TABLET EVERY 6 HOURS NEEDED FOR PAIN. Quantity: 28 Refills: 0 Ordered: 06-Jan-2022 Syed Zaragoza PA-C Start : 06-Jan-2022 ActiveStart: 07-07-2020 End: 30-89-7491ftlm 1 tablet by mouth every twelve hoursHYDROcodone- Acetaminophen 5-325 MG Oral Tablet TAKE 1 TABLET Every twelve hours Quantity: 14 Refills: 0 Ordered: 07-Jul-2020 Glenna Santo MD Start : 07-Jul-2020 End : 16-Jul-2021 CompleteStart: 03-30-2017 End: 40-12-0493bgob 1 tablet by mouth every six hours as needed for pain Hydrocodone-Acetaminophen 5-325 mg tablet Discontinued 1 TAB PO Q6H as needed for pain 29 10March 30, 2017 April 05, 2017 1:00am April 06, 2017 1:02am0.4 ml adalimumab 100 mg/ml auto-injector (20 sources)Tumor Necrosis Factor BlockerStart: 51-51-6219Mswvay Pen 40 MG/0.4ML Subcutaneous Pen-injector Kit INJECT ONE PEN SUBCUTANEOUSLY EVERY OTHER WEEK Quantity: 1 Refills: 2 Ordered: 04-Feb-2022 Denise Cardoza DO Start : 28-Jul-2021 Active Continuation of therapy, PA approved through 01/26/23.Per insurance [facility]: [facility] End: 25-55-1106haqkwouapj 40 mg/0.4 mL subcutaneous pen kit (HUMIRA (CF)) Inject subcutaneously. 0 07/28/2021 04/06/2022 Discontinued (Clinical Decision) Adalimumab (HUMIRA SC) Inject into the skin Every other 0 ActiveComment on above:Inject subcutaneously.alendronic acid 70 mg oral tablet (20 sources)BisphosphonateStart: 63-01-1358etoj 1 tablet by mouth every week at breakfastAlendronate Sodium 70 MG Oral Tablet TAKE 1 TABLET BY MOUTH EVERY WEEK 30 TO 60 MINUTES PRIOR TO BREAKFASTON AN EMPTY STOMACH. DO NOT LIE DOWN AFTER TAKING MEDICATION Quantity: 12 Refills: 3 Ordered:01-Mar-2022 Mutenzin DOBarberDenise Start : 30-Nov-2021 ActiveamLODIPine 5 mg oral tablet (9 sources)Dihydropyridine Calcium Channel BlockerStart: 03-15-2017 End: 78-67-6722hnpk 2 tablets by mouth once daily in the eveningAmlodipine (Norvasc) 5 mg Tablet Discontinued 10 MG PO Every evening March 15, 2017 1:00am July 05, 2020 4:14pmamoxicillin 875 mg oral tablet (1 source)Penicillin-class AntibacterialStart: 75-50-0032Fsmeoxwxxcb 875 MG Oral Tablet Quantity: 14 Refills: 0 Ordered: 18-Jun-2022 DO Start : 18-Jun-2022 C ompleteazelastine hydrochloride 0.137 mg/actuat metered dose nasal spray (9 sources)Histamine-1 Receptor AntagonistStart: 03-15-2017 End: 43-88-0487Ydnlltwigq 137 mcg (0.1 %) Aerosol,[place] Discontinued 2 SPRAY INTRANASAL Twice daily as needed for Sinus congestion,season March 15, 2017 1:00am July 29, 2017 11:12amazithromycin 250 mg oral tablet (1 source)Macrolide AntimicrobialStart: 76-05-3699Imhflctjhlgd 250 MG Oral Tablet Quantity: 6 Refills: 0 Ordered: 02-Apr-2022 DO Start : 02-Apr-2022 C ompleteB Complex Vitamins (VITAMIN-B COMPLEX PO) (2 sources) End: 72-60-9729ebdh 1200 mg by mouth once dailyB Complex Vitamins (VITAMIN-B COMPLEX PO) Take 1,200 mg by mouth daily. 0 11/09/2019 Discontinuedbenzonatate 100 mg oral capsule (1 source)Non-narcotic AntitussiveStart: 15-33-3747Sxngcmbdwil 100 MG Oral Capsule Quantity: 30 Refills: 0 Ordered: 18-Jun-2022 DO Start : 18-Jun-2022 CompleteBetamethasone Sodium Phosphate 6 MG/ML Injection Solution (2 sources)Start: 04-76-0060Egwtriuamcpuu Sodium Phosphate 6 MG/ML Injection Solution rt knee Quantity: 0 Refills: 0 Ordered: 04-Sep-2021 Rodney Lamb MD Start : 04-Sep-2021 Completecalcium chloride 0.0014 meq/ml / potassium chloride 0.004 meq/ml / sodium chloride 0.103 meq/ml / sodium lactate 0.028 meq/ml injectable solution (4 sources)Start: 12-24-2021 End: 85-18-7594zxgvunya ringers infusionStart: 11-15-2019 End: 04-79-8339Bxpgamitgop, at 50 mL/hr, CONTINUOUS, Starting Nella 11/15/19 at 1300, For 24 hours, Post-opStart: 11-15-2019 End: 92-00-1378wwhntgcw ringers infusionceFAZolin 2000 mg injection (1 source)Cephalosporin AntibacterialStart: 11-15-2019 End: g, Intravenous, at 100 mL/hr, Administer over 30 Minutes, EVERY 8 HOURS, First dose on Nella 11/15/19 at 1800, For 2 doses, Post-opceFAZolin (ANCEF) 2000 mg in dextrose 5 % 100 mL IVPB (1 source)Start: 12-24-2021 End: 19-57-4543yeKUHtigs (ANCEF) 2000 mg in dextrose 5 % 100 mL IVPB dexamethasone 6 mg oral tablet (1 source)CorticosteroidStart: 85-37-6999Gyzilheyfbphc 6 MG Oral Tablet Quantity: 7 Refills: 0 Ordered: 23-Jul-2022 DO Start : 23-Jul-2022 Complete docosahexaenoic acid 120 mg / eicosapentaenoic acid 180 mg oral capsule (2 sources)Start: 01-10-2013 End: 50-25-9675arzw 1 capsule by mouth twice dailyOmega 3 1000 MG CAPS Take 1 capsule by mouth 2 times daily. 1 capsule 0 01/10/2013 11/09/2019 Discontinued1 ml etanercept 50 mg/ml prefilled syringe (12 sources)Tumor Necrosis Factor BlockerStart: 04-05-2019 End: 69-91-2847oxodqd 50 mg by subcutaneous injection every weekEtanercept (Enbrel) 50 mg/mL (1 mL) Syringe Discontinued 50 MG SUBCUT every week April 05, 2019 1:00am July 05, 2020 4:17pm End: 97-32-4188yiaxzqufmm (ENBREL) 50 MG/ML injection Indications: injection every Tuesday once a week Indications:injection every Tuesday 0 12/17/2021 Discontinued (LIST CLEANUP)2 ml fentaNYL 0.05 mg/ml injection (1 source)Opioid AgonistStart: 12-24-2021 End: mcg, IntraVENous, EVERY 10 MIN PRN, 4 doses, Starting on Nella 12/24/21 at 1023, Until Nella 12/24/21 at 1153, Pain Moderate (4-6) Phase I - Initial therapy for moderate pain. PACU onlyFLUoxetine 10 mg oral capsule (9 sources)Serotonin Reuptake InhibitorStart: 07-29-2017 End: 55-24-7068cnlb 1 capsule by mouth once dailyFluoxetine (Prozac) 10 mg Capsule Discontinued 10 MG PO Daily July 29, 2017 12:00am April 25, 2024 12:55pmfolic acid 1 mg oral tablet (20 sources)Start: 09-30-2021 End: 09-70-5377curvs acid (Folvite) 1 mg tablet Take 1 tablet (1 mg) by mouth. TAKE 1 TABLET DAILY DIRECTED. Need to be taken For Methotrexate therapy 09/30/2021 09/26/2023 Discontinued (Discontinued by another clinician)Start: 07-29-2017 End: 09-40-6541kecq 1 tablet by mouth six times weeklyFolic Acid 1 mg Tablet Discontinued 1 MG PO 6 TIMES PER WEEK July 29, 2017 12:00am July 05, 2020 4:17pmgabapentin 600 mg oral tablet (12 sources)Anti-epileptic AgentStart: 08-01-2023 End: 66-08-2859qhrg 1 tablet by mouth twice dailygabapentin (NEURONTIN) 600 mg tablet Indications: Rheumatoid arthritis involving multiple sites with positive rheumatoid factor (HCC) Take 1 tablet by mouth two times a day for 180 days. 180 tablet 10/24/2023 DiscontinuedStart: 54-00-2267gcsaasiela (NEURONTIN) 300 mg capsule Take by mouth. 08/25/2022 ActiveStart: 08-25-2022 Gabapentin 300 MG Oral Capsule 1DAILY NEEDED Quantity: 0 Refills: 0 Ordered: 23-Oct-2022 DO Start :25-Aug-2022 Active End: 34-08-8732azjqeagjen (NEURONTIN) 600 MG tablet Take 800 mg by mouth 3 times daily.. 0 11/09/2019 DiscontinuedhydroCHLOROthiazide 12.5 mg / irbesartan 150 mg oral tablet (2 sources)Thiazide Diuretic, Angiotensin 2 Receptor Angie End: 41-91-0371cadv 1 tablet by mouth once dailyirbesartan-hydrochlorothiazide (AVALIDE) 150-12.5 MG per tablet Take 1 tablet by mouth daily 0 11/16/2019 Discontinued (ERROR)hydroCHLOROthiazide 25 mg / valsartan 160 mg oral tablet (20 sources)Thiazide Diuretic, Angiotensin 2 Receptor BlockerStart: 11-13-2021 End: 82-93-1506gkur 1 tablet by mouth once dailyValsartan-hydroCHLOROthiazide 160-25 MG Oral Tablet TAKE 1 TABLET DAILY. Quantity: 0 Refills: 0 Ordered: 19-Oct-2022 DO Start : 13-Nov-2021 ActiveComment on above:Take 1 tablet by mouth once daily.ibuprofen 800 mg oral tablet (20 sources)Nonsteroidal Anti-inflammatory DrugStart: 47-02-1649Gyfnkvhvc 800 MG Oral Tablet Quantity: 20 Refills: 0 Ordered: 19-Nov-2022 DO Start : 19-Nov-2022 CompleteStart: 11-19-2022 End: 96-80-7275uape 1 tablet by mouth three times daily as needed for pain Ibuprofen 800 mg tablet Discontinued 800 MG PO Three times daily as needed for Pain November 12:00am April 25, 2024 12:55pmibuprofen (Motrin IB) 200 MG tablet Take by mouth Active1 ml ketorolac tromethamine 30 mg/ml cartridge (2 sources)Nonsteroidal Anti-inflammatory Drug, Cyclooxygenase InhibitorStart: 12-24-2021 End: 64-33-7264yanjwzcta (TORADOL) injection 30 mgStart: 11-15-2019 End: 70-25-9535wlerbjbfv (TORADOL) injection 30 mg10 ml lidocaine hydrochloride 10 mg/ml injection (3 sources)Antiarrhythmic, Amide Local AnestheticStart: 12-24-2021 End: 72-99-9747ijtokhfcs PF 1 % injection 1 mLStart: 79-59-7613Jencqwths HCl - 1 % Injection Solution rt knee Quantity: 0 Refills: 0 Ordered: 04-Sep-2021 Rodney Soto Start : 04-Sep-2021 Completemethotrexate 2.5 mg oral tablet (20 sources)Folate Analog Metabolic InhibitorStart: 61-05-8751cdbv 4 tablets by mouth every weekMethotrexate Sodium 2.5 MG Oral Tablet TAKE FOUR TABLETS BY MOUTH ONCE WEEKLY Quantity: 48 Refills:0 Ordered: 23-Mar-2022 Denise Cardoza DO Start : 23-Mar-2022 ActiveStart: 45-82-4534Ifzhjakodxqj 2.5 MG Oral Tablet Start 3 pills weelkly x 1 week and then start taking 4 pills weeklyx 1 weeks and then stay on 5 pills every week Quantity: 28 Refills: 1 Ordered: 30-Sep-2021 Denise Cardoza DO Start : 30-Sep-2021 ActiveStart: 07-29-2017 End: 07-82-4780bscq 4 tablets by mouth every weekMethotrexate Sodium 5 mg Tablet Discontinued 4 TAB PO every week July 29, 2017 12:00am July 05, 2020 4:17pm End: 52-09-5435hhia 2 tablets by mouth every weekmethotrexate (RHEUMATREX) 2.5 MG chemo tablet Indications: take 8 tablets once a week Take 5 mg by mouth once a week 0 11/09/2019 Discontinued1 ml methylPREDNISolone acetate 80 mg/ml injection (3 sources)CorticosteroidStart: 05-26-2023 End: 73-65-3120dlascdPTDZJBKubwzb acetate 80 mg injection (DEPO-Medrol)Start: 05-06-2023 End: 64-12-9736vbqzkkYTZSHJGtrpua (Medrol Dospak) 4 mg tablets Indications: Right knee pain, unspecified chronicity Use as directed by package instructions 21 tablet 05/06/2023 09/26/2023 Discontinued (Med List Cleanup)Start: 05-06-2023 methylPREDNISolone (Medrol Dospak) 4 mg tablets Indications: Right knee pain, unspecified chronicity Use as directed by package instructions 21 tablet 0 05/06/2023 ActivemethylPREDNISolone 4 MG Oral Tablet Therapy Pack (6 sources)Start: 31-99-1614cqxfhqEHHHFPTwlfiz 4 MG Oral Tablet Therapy Pack TAKE DIRECTED ON PACKGE Quantity: 1 Refills: 0 Ordered: 22-Sep-2022 Rodney Lmab MD Start : 22-Sep-2022 ActiveStart: 62-54-0889otabajDMUDSEEknvud 4 MG Oral Tablet Therapy Pack USE DIRECTED ; QTY 21 TABLET Quantity: 1 Refills: 0 Ordered: 19-May-2022 Glenna Santo MD Start : 19-May-2022 Active2 ml midazolam 1 mg/ml injection (2 sources)BenzodiazepineStart: 11-15-2019 End: 83-88-5314xuajhddgj (VERSED) injection 2 mgStart: 11-15-2019 End: 83-59-2357mconlkiok (VERSED) 2 MG/2ML rkxhngtmu02 hr mirabegron 50 mg extended release oral tablet (15 sources)beta3-Adrenergic AgonistStart: 06-06-2023 End: 07-58-9161yjsw 1 tablet by mouth every twenty-four hours at bedtime mirabegron ER (Myrbetriq) 50 MG 24 hr tablet Indications: Urinary urgency , Urge incontinence , Urinary frequency Take 1 tablet (50 mg) by mouth at bedtime Do not crush, chew, or split. 90 tablet 3 06/06/2023 02/01/2024 Discontinued (Therapy completed)take 1 tablet by mouth once dailymirabegron (Myrbetriq) 50 mg tablet extended release 24 hr 24 hr tablet Take 1 tablet (50 mg) by mouth once daily. Activeolmesartan (4 sources)Angiotensin 2 Receptor Angie End: 64-03-0487mqqg 0.5 tablet by mouth once dailyOLMESARTAN MEDOXOMIL PO Take 12.5 mg by mouth daily 1/2 tab 0 12/24/2021 Discontinued (LIST CLEANUP)take 0.5 tablet by mouth once dailyOLMESARTAN MEDOXOMIL PO Take 12.5 mg by mouth daily 1/2 tab 0 Activetake 12.5 mg by mouth once dailyOLMESARTAN MEDOXOMIL PO Take 12.5 mg by mouth daily 0 ActiveOLMESARTAN MEDOXOMIL PO Take by mouth daily 0 ActiveOmeprazole Magnesium (Prilosec Otc) 20 mg Tablet,Delayed Release (Dr/Ec) (8 sources)Start: 03-15-2017 End: 54-91-6784fisn 1 tablet by mouth once dailyOmeprazole Magnesium (Prilosec Otc) 20 mg Tablet,Delayed Release (Dr/Ec) Discontinued 20 MG PO Daily March 15, 2017 1:00am July 05, 2020 4:17pmStart: 03-15-2017 End: 21-69-2667fqht 1 tablet by mouth once dailyOmeprazole Magnesium (Prilosec Otc) 20 mg Tablet,Delayed Release (Dr/Ec) Discontinued 20 MG PO Daily March 15, 2017 12:00am July 05, 2020 3:17pmpantoprazole 40 mg delayed release oral tablet (20 sources)Proton Pump InhibitorStart: 12-16-2023 End: 83-16-8735juzc 1 tablet by mouth twice dailyPantoprazole (Protonix) 40 mg tablet,delayed release (DR/EC) Discontinued 40 MG PO Twice daily 60 30 July 13, 2024 9:52am August 22, 2024 10:44amStart: 92-42-2588Shiwmmpxaarp Sodium 40 MG Oral Tablet Delayed Release Quantity: 90 Refills: 0 Ordered: 06-Oct-2022 DO Start : 22-Jul-2022 CompleteStart: 07-29-2017 End: 50-31-9684rzde 1 tablet by mouth once dailypantoprazole DR (PROTONIX) 40 mg tablet Take 40 mg by mouth once daily. 07/29/2017 ActiveStart: 07-29-2017 End: 73-91-8338rvsk 1 tablet by mouth twice dailyPantoprazole (Protonix) 40 mg tablet,delayed release (DR/EC) Discontinued 40 MG PO Twice daily 60 July 29, 2017 12:00am July 05, 2020 4:16pmtake 1 dose by mouth twice daily before mealtimepantoprazole (ProtoNix) 40 mg packet Take 1 packet (40 mg) by mouth 2 times a day before meals. Activepantoprazole (ProtoNix) 40 mg packet Take 1 packet (40 mg) by mouth. 0 ActivePantoprazole Sodium 40 MG Oral Packet Quantity: 0 Refills: 0 Ordered: 16-Jul-2021 DO ActiveComment on above:Take 40 mg by mouth once daily. Paxlovid (300/100) 20 x 150 MG & 10 x 100MG Oral Tablet Therapy Pack (1 source)Start: 64-35-2322Hxsfdhnl (300/100) 20 x 150 MG & 10 x 100MG Oral Tablet Therapy Pack Quantity: 30 Refills: 0 Ordered: 16-Jul-2022 DO Start : 16-Jul-2022 CompletePhenylephrine-Acetaminophen (VICKS DAYQUIL SINUS PO) (3 sources) End: 45-66-8828jccd 1 tablet by mouth once daily as neededPhenylephrine- Acetaminophen (VICKS DAYQUIL SINUS PO) Take 1 tablet by mouth daily as needed. 0 12/17/2021 Discontinued (LIST CLEANUP)take 1 tablet by mouth once daily as neededPhenylephrine-Acetaminophen (VICKS DAYQUIL SINUS PO) Take 1 tablet by mouth daily as needed. 0 Activeplecanatide 3 mg oral tablet (20 sources)Start: 11-28-2023 End: 11-07-8337elir 1 tablet by mouth once dailyTrulance tablet tablet Indications: Irritable bowel syndrome, unspecified type TAKE 1 TABLET BY MOUTH DAILY 90 tablet 11/28/2023 01/04/2024 Discontinued (Therapy completed)Start: 12-24-2021 End: 19-68-4988yrol 3 mg by mouth once daily3 mg, Oral, NIGHTLY, First dose on Nella 12/24/21 at 2100Comment on above:Take 3 mg by mouth daily at bedtime. prednisoLONE acetate 10 mg/ml ophthalmic suspension (2 sources)CorticosteroidStart: 37-39-6285jusywxswWKOJ Acetate 1 % Ophthalmic Suspension Quantity: 10 Refills: 0 Ordered: 28-May-2022 DO Start : 28-May-2022 CompleteStart: 04-26-2022 End: 19-83-6409idmb 1 tablet by mouth once dailyprednisoLONE 5 mg tab Indications: Rheumatoid arthritis involving multiple sites with positive rheum atoid factor (HCC) Take 1 tablet by mouth once daily. 30 tablet 1 04/26/2022 06/25/2022 ActiveComment on above:Take 1 tablet by mouth once daily.pregabalin 50 mg oral capsule (14 sources)Start: 04-17-2024 End: 85-41-5597qvlq 1 capsule by mouth in the morning, then take 1 capsule by mouth in the evening, then take 1 capsule by mouth at bedtimepregabalin (Lyrica) 50 MG capsule Indications: Arthritis, lumbar spine , Fibromyalgia , Spondylolisthesis at L4-L5 level , Numbness and tingling of both lower extremities Take 1 capsule (50 mg) by mouth in the morning and 1 capsule (50 mg) in the evening and 1 capsule (50 mg) before bedtime. 90 capsule 1 04/17/2024 08/29/2024 DiscontinuedProbiotic (5 sources)Probiotic Not-Taking/PRNProbiotic ActiverifAXIMin 550 mg oral tablet (3 sources)Rifamycin AntibacterialStart: 10-09-2019 End: 23-42-8633pfoe 1 tablet by mouth three times dailyrifaximin (XIFAXAN) 550 MG tablet Take 550 mg by mouth 3 times daily 0 10/09/2019 12/17/2021 Discont inued (LIST CLEANUP)rosuvastatin calcium 20 mg oral tablet (20 sources)HMG-CoA Reductase InhibitorStart: 06-30-2021 End: 59-24-9280lzqn 1 tablet by mouth once dailyrosuvastatin (CRESTOR) 20 mg tablet Take 1 tablet by mouth once daily. 90 tablet 3 06/30/2021 04/06/2022 DiscontinuedRosuvastatin Calcium 20 MG Oral Tablet Quantity: 0 Refills: 0 Ordered: 16-Jul-2021 DO ActiveComment on above:Take 1 tablet by mouth once daily.24 hr tofacitinib 11 mg extended release oral tablet (19 sources)Start: 11-11-2023 End: 97-83-1034whgt 1 tablet by mouth every twenty-four hours in the morning Xeljanz XR 11 MG tablet sustained-release 24 hour Take 11 mg by mouth in the morning. 11/11/2023 03/07/2024 Discontinued (Therapy completed)Start: 10-24-2023 End: 22-59-8000evni 1 tablet by mouth once dailytofacitinib (XELJANZ XR) 11 mg tablet, extended release Indications: Rheumatoid arthritis involvingmultiple sites with positive rheumatoid factor (HCC) Take 1 tablet (11 mg) by mouth once daily. 90 tablet 1 11/11/2023 03/08/2024 DiscontinuedtraMADol hydrochloride 50 mg oral tablet (16 sources)Opioid AgonistStart: 11-28-2019 End: 09-52-1946hgjc 1 tablet by mouth every four to six hours as neededtraMADol HCl - 50 MG Oral Tablet TAKE 1 TABLET EVERY 4 TO 6 HOURS NEEDED. Quantity: 40 Refills: 0 Ordered: 28-Nov-2019 Rodney Lamb MD Start : 28-Nov-2019 End : 16-Jul-2021 CompleteStart: 11-15-2019 End: 16-45-2210tblOVIkn (ULTRAM) tablet 50 mgStart: 11-07-2019 End: 68-59-2665xogr 1 tablet by mouth every twelve hours as neededtraMADol HCl - 50 MG Oral Tablet TAKE 1 TABLET EVERY 12 HOURS NEEDED. Quantity: 15 Refills: 0 Ordered: 07-Nov-2019 Rodney Lamb MD Start : 07-Nov-2019 End : 16-Jul-2021 Completetranexamic acid 650 mg oral tablet (6 sources)Antifibrinolytic AgentStart: 12-24-2021 End: 63-75-6284jenegbhoyn acid (LYSTEDA) tablet 1,950 mgStart: 11-15-2019 End: 53-51-1252uyqupfqmui acid (LYSTEDA) tablet 1,950 mg Problems Active Problems Problem ClassificationProblemDateDocumented DateEpisodic/ChronicAnxiety disorders (20 sources)Anxiety; Translations: [Anxiety disorder, unspecified]Onset: 773877-47-8024DjpczqhRezmnog dysrhythmias (20 sources)Atrial paroxysmal tachycardia; Translations: [PAT (paroxysmal atrial tachycardia)]Onset: 02-17-2023 Resolved: 501619-73-9531BunpzojOxnzxfiadh disorders (20 sources)Gastroesophageal reflux disease; Translations: [Gastro-esophageal reflux disease without esophagitis]Onset: 11-09-2019 Resolved: 292510-49-0777UjxjbkuHuldbgiith disorders (2 sources)Esophagitis; Translations: [Esophagitis]67-60-6887MsaglxtyQwleqknvs hypertension (20 sources)Hypertensive disorder; Translations: [Essential (primary) hypertension]Onset: 08-23-2022 Resolved: 535337-20-6717SzpyutkKxlztyydfndgd symptoms and ill-defined conditions (3 sources)Increased frequency of urination; Translations: [Frequency of micturition]99-33-6049AmqrwgltKiscsxpx; including migraine (2 sources)Migraine; Translations: [Other migraine, not intractable, without status migrainosus]39-34-7884HfjlrbpUahggizx; including migraine (20 sources)Occipital headache; Translations: [Recurrent occipital headache] Onset: 774963-14-2374HwyazoyyZamnroal; including migraine (2 sources)Headache; including migraine; Translations: [Recurrent occipital headache]Onset: 08-81-8067Dmqfsjja disorders (20 sources)Patient immunocompromised; Translations: [Immunodeficiency, unspecified]Onset: 11-10-2017 Resolved: 202295-18-3935UnbrmizCeonmjgwy (2 sources)Influenza due to Influenza A virus; Translations: [Influenza due to other identified influenza virus with other respiratory manifestations] 38-13-0439ZuxdyrsuHwkkg disorders and dislocations; trauma-related (2 sources)Unspecified internal derangement of unspecified knee; Translations: [Unspecified internal derangement of unspecified knee]Onset: 80-66-1824Pjvkgbh Malaise and fatigue (20 sources)Chronic fatigue syndrome; Translations: [Chronic fatigue syndrome] Onset: 960996-59-7444RczaxysNnkf disorders (20 sources)Depressive disorder; Translations: [Depression]Onset: 02-07-2019 Resolved: 460524-35-3503KzrnwybQvyexdormcy chest pain (10 sources)Chest pain; Translations: [Chest pain, unspecified]Onset: 09-28-2024 98-17-9392JypgcspzNqubcbeoect deficiencies (20 sources)Vitamin D deficiency; Translations: [Vitamin D deficiency, unspecified]Onset: 01-14-2020 Resolved: 154180-25-7264TggqpqoOars wounds of head; neck; and trunk (9 sources)Laceration - injury; Translations: [Laceration]95-23-0633Aetxxynz Osteoarthritis (3 sources)Osteoarthritis of left knee joint; Translations: [Osteoarthritis of left knee]Onset: 277846-33-8868Vuzjhijrwmtc (20 sources)Postmenopausal osteoporosis; Translations: [Senile osteoporosis] Onset: 05-58-5807ZwekscfZkpzu aftercare (1 source)Aftercare following joint replacement surgery; Translations: [Aftercare following joint replacementsurgery]Onset: 26-05-0296QwebmbzUlxbo aftercare (9 sources)Taking high risk medication; Translations: [Other intermediate (current) drug therapy]EpisodicOther aftercare (1 source)Treatment changed; Translations: [Long-term (current) use of other medications]EpisodicOther aftercare (3 sources)Other intermediate (current) drug therapy; Translations: [High risk medication use]Onset: 37-78-6020XhtxfebqNgnpw and unspecified benign neoplasm (11 sources)Polyp of colon; Translations: [Polyp of colon]Onset: 09-28-2024 25-94-0271VigzigboJhybo and unspecified benign neoplasm (1 source)Polyp of colon; Translations: [Benign neoplasm of colon]07-17-2024 EpisodicOther bone disease and musculoskeletal deformities (1 source)Other specified disorders of bone density and structure, unspecified site; Translations: [Osteopenia determined by x-ray]Onset: 48-63-3806Whiguenp Other circulatory disease (3 sources)Arteritis, unspecified; Translations: [Arteritis, unspecified]Onset: 93-89-8512XienssdMuizt congenital anomalies (20 sources)Bilateral metatarsus varus; Translations: [Congenital metatarsus adductus, right foot]Onset: 06-18-2019 Resolved: 374057-59-3622McjxrnbSsmhy connective tissue disease (5 sources)Presence of right artificial knee joint; Translations: [Presence of right artificial knee joint]Onset: 99-06-5563SmnkoqrNawmk connective tissue disease (1 source)Presence of left artificial knee joint; Translations: [Presence of left artificial knee joint]Onset: 90-50-9597SktqnhvIvuig connective tissue disease (20 sources)Pain in upper limb; Translations: [Pain in limb]EpisodicOther connective tissue disease (20 sources)H/O: arthritis; Translations: [Personal history of arthritis] EpisodicOther connective tissue disease (1 source)Other specified soft tissue disorders; Translations: [Other specified soft tissue disorders]Onset: 83-04-6393AntmgbbfKkrff connective tissue disease (1 source)Bilateral thumb pain; Translations: [Pain in right finger(s)] 90-86-3955EbitgmkkNdkkv connective tissue disease (1 source)Pain in both feet; Translations: [Pain in right foot]01-30-2020 EpisodicOther connective tissue disease (9 sources)History of lumbar fusion; Translations: [Arthrodesis status]Onset: 558174-12-8685HnqmnvmoZvxmy connective tissue disease (20 sources)H/O: arthrodesis; Translations: [Arthrodesis status]Onset: 470595-43-3635OmvhzfbbMorvd connective tissue disease (3 sources)Arthrodesis status; Translations: [History of lumbar fusion]Onset: 68-85-6077JnmwznirCufas ear and sense organ disorders (2 sources)Bilateral hearing loss; Translations: [Unspecified hearing loss, bilateral]41-04-5761JqbjworPlqka ear and sense organ disorders (2 sources)Bilateral referred otalgia of ears; Translations: [Otalgia, bilateral]12-37-8171KtwkzxmjUtube ear and sense organ disorders (2 sources)Impacted cerumen of bilateral ears; Translations: [Impacted cerumen, bilateral]18-64-7492NmtsxanmGvkls fractures (3 sources)Wedge fracture of lumbar vertebra; Translations: [Wedge compression fracture of third lumbar vertebra, sequela]Onset: 983610-68-2771Kbkmjrnb Other gastrointestinal disorders (5 sources)Irritable bowel syndrome characterized by constipation; Translations: [Irritable bowel syndrome with constipation]ChronicOther gastrointestinal disorders (20 sources)Irritable bowel syndrome; Translations: [Irritable bowel syndrome without diarrhea]Onset: 802699-84-1023RnihskrRyply gastrointestinal disorders (20 sources)Disorder of digestive system; Translations: [Other digestive problems]EpisodicOther gastrointestinal disorders (1 source)Abdominal distension (gaseous)EpisodicOther gastrointestinal disorders (2 sources)Dysphagia, unspecified; Translations: [Dysphagia, unspecified]Onset: 315129-61-2106MxrosaryJtmbp gastrointestinal disorders (9 sources)Abnormal feces; Translations: [Other fecal abnormalities]Onset: 378987-27-1276OviidignTraob lower respiratory disease (11 sources)Dyspnea on exertion; Translations: [Shortness of breath]Onset: 397640-82-4706KudykiztTetvz nervous system disorders (9 sources)Carpal tunnel syndrome of right wrist; Translations: [Carpal tunnel syndrome, right upper limb]Onset: 589546-23-6821WtttexqVrkrr nervous system disorders (4 sources)Other chronic pain; Translations: [Chronic low back pain, unspecified back pain laterality, unspecified whether sciatica present]Onset: 01-10-2025 ChronicOther nervous system disorders (1 source)Anesthesia of skinOnset: 70-78-3806IgvraypzXrzxs nervous system disorders (20 sources)Numbness and tingling sensation of skin; Translations: [Disturbance of skin sensation]EpisodicOther nervous system disorders (1 source)Acute postoperative pain; Translations: [Other acute postprocedural pain]EpisodicOther nervous system disorders (2 sources)Paresthesia of lower extremity; Translations: [Anesthesia of skin] 16-63-6056HrfrtznwEifyb non-traumatic joint disorders (4 sources)Knee pain; Translations: [Knee pain]EpisodicOther non-traumatic joint disorders (20 sources)Pain in unspecified knee; Translations: [Knee pain]EpisodicOther non-traumatic joint disorders (20 sources)Pain in wrist; Translations: [Pain in joint, forearm]EpisodicOther non-traumatic joint disorders (20 sources)Hip pain; Translations: [Pain in joint, pelvic region and thigh] EpisodicOther non-traumatic joint disorders (20 sources)Pain in left knee; Translations: [Pain in joint, lower leg]Onset: 727281-63-9394FmapricrSvtpn nutritional; endocrine; and metabolic disorders (20 sources)Body mass index 30+ - obesity; Translations: [Obesity, unspecified] Onset: 990140-36-3726LwurcryBcrdw nutritional; endocrine; and metabolic disorders (2 sources)Obesity, unspecified; Translations: [Obesity, unspecified]Onset: 48-94-8503NswkbkyOwlfe nutritional; endocrine; and metabolic disorders (2 sources)Severe obesity; Translations: [Morbid (severe) obesity due to excess calories]72-71-6197IkxpbbjFvluy nutritional; endocrine; and metabolic disorders (1 source)Abnormal weight gain; Translations: [Abnormal weight gain]09-24-2024 EpisodicOther screening for suspected conditions (not mental disorders or infectious disease) (11 sources)Encounter for screening for osteoporosis; Translations: [Electrocardiogram abnormal]Onset: 220563-75-6388GoenoxtbSaegz skin disorders (4 sources)Mass of neck; Translations: [Localized swelling, mass and lump, neck] 76-20-9452NomapvbiPnzui upper respiratory infections (20 sources)Chronic maxillary sinusitis; Translations: [Chronic maxillary sinusitis]Onset: 05-28-2019 Resolved: 541969-79-4237PwilvldCrrhle media and related conditions (2 sources)Acute suppurative otitis media without spontaneous rupture of ear drum; Translations: [Acute suppurative otitis media without spontaneous rupture of ear drum, bilateral]00-00-3201PuxsxxevDqcwghqf codes; unclassified (20 sources)H/O: Disorder; Translations: [Personal history of other specified diseases]EpisodicRheumatoid arthritis and related disease (20 sources)Rheumatoid arthritis; Translations: [Rheumatoid arthritis]Onset: 02-22-2018 Resolved: 962336-27-5984NjmhjdvFakcqbvrh and history of mental health and substance abuse codes (11 sources)Ex-smoker; Translations: [Personal history of tobacco use]Onset: 123413-59-7425BrjvpwbtVnuwaazheiu; intervertebral disc disorders; other back problems (20 sources)Degeneration of lumbar intervertebral disc; Translations: [Other intervertebral disc degeneration, lumbar region]Onset: 01-08-2013 Resolved: 260417-94-4747XaububdLlsavotpvgy; intervertebral disc disorders; other back problems (20 sources)Radicular pain; Translations: [Spinal stenosis in cervical region] Onset: 017314-91-9345OnnrrvynEiyvqvu and strains (20 sources)Low back strain; Translations: [Strain of muscle, fascia and tendon of lower back, initial encounter]Onset: 12-30-2022 Resolved: 446204-60-1379IcntqqyiOppscszmzyqz (3 sources)Pain in left knee; Translations: [Pain in left knee]Onset: 01-17-2018 Unclassified (3 sources)Oth tear of medial meniscus, current injury, left knee, subs; Translations: [Oth tear of medial meniscus, current injury, left knee, subs] Onset: 55-10-5819Yzwzgveklazm (1 source)Oth tear of lat mensc, current injury, left knee, subsOnset: 37-14-9525Tkucjkcilsib (3 sources)Unilateral primary osteoarthritis, left knee; Translations: [Unilateral primary osteoarthritis, left knee]Onset: 86-57-5390Tzagfjbxfyfe (1 source)Oth tear of medial meniscus, current injury, left knee, initOnset: 17-34-2194Kgzfhndladej (1 source)Oth tear of lat mensc, current injury, left knee, initOnset: 65-79-5789Tkexfwrskerq (1 source)Unspecified internal derangement of left kneeOnset: 02-10-2018 Unclassified (1 source)Other supraventricular tachycardia (CMS-HCC); Translations: [Other supraventricular tachycardia (CMS-HCC)]Onset: 04-99-4402Dqhqaonwnuqe (1 source)Other supraventricular tachycardia; Translations: [Other supraventricular tachycardia]Onset: 56-38-7806Fwrdknwkoqrj (3 sources)Left knee pain, unspecified eeibrtsetx96-23-6744Muynaltsrdoe (2 sources)USP (current) use of janus kinase inhibitor; Translations: [USP (current) use of janus kinase inhibitor]Onset: 59-18-9287Wzpqqhuxpojd (1 source)Supraventricular tachycardia, unspecified; Translations: [Supraventricular tachycardia, unspecified]Onset: 02-98-6210Guonbnhosyfv (1 source)Chronic low back pain, unspecified back pain laterality, unspecified whether sciatica present; Translations: [Chronic low back pain, unspecified back pain laterality, unspecified whether sciatica present]Onset: 01-10-2025 Unclassified (1 source)Adjacent segment disease of lumbar spine with history of fusion procedure; Translations: [Adjacent segment disease of lumbar spine with history of fusion procedure]Onset: 05-44-6288Nafwcgj tract infections (2 sources)Acute cystitis; Translations: [Acute cystitis with hematuria] 47-44-1229Wgkudmgb Past or Other Problems Problem ClassificationProblemDateDocumented DateEpisodic/ChronicAbdominal pain (20 sources)Abdominal pain; Translations: [Unspecified abdominal pain]Onset: 02-08-2017 Resolved: 484066-90-6019UykgauzyYxgix and unspecified renal failure (20 sources)Oqgni-az-icydget renal failure; Translations: [Acute kidney failure, unspecified]Onset: 11-15-2022 Resolved: 005738-86-9769PkawklcfQgbegngtwm disorders (20 sources)Adjustment disorder with depressed mood; Translations: [Adjustment disorder with depressed mood]Onset: 08-23-2022 Resolved: 428571-07-0104LomyfzhRhznawlshibszm/social admission (20 sources)Follow-up status; Translations: [Person consulting for explanation of examination or test findings]Onset: 02-17-2023 Resolved: 306071-05-1262UupgegqhBlpspsb tract disease (20 sources)Biliary dyskinesia; Translations: [Other specified diseases of gallbladder]Onset: 08-23-2022 Resolved: 428640-06-1891SefhtruoSwkyuyf dysrhythmias (20 sources)Palpitations; Translations: [Palpitations]Onset: 11-15-2022 Resolved: 260324-05-5827HgtvrvjjGpldwiqj mellitus without complication (9 sources)Prediabetes; Translations: [Prediabetes]Onset: EpisodicE Codes: Fall (20 sources)Fall; Translations: [Unspecified fall, initial encounter]Onset: 10-03-2023 Resolved: 785367-05-6796WrcvteojOkuuegbc; convulsions (20 sources)Generalized epilepsy; Translations: [Generalized idiopathic epilepsy and epileptic syndromes, not intractable, without status epilepticus]Onset: 01-17-2021 Resolved: 891410-58-5031GfcmrfzVnfws and electrolyte disorders (20 sources)Hypokalemia; Translations: [Hypokalemia]Onset: 11-15-2022 Resolved: 313280-33-0415EqrosrflXeumuujj of lower limb (20 sources)Closed fracture of fifth metatarsal bone; Translations: [Displaced fracture of fifth metatarsal bone, left foot, initial encounter for closed fracture]Onset: 06-18-2019 Resolved: 735553-13-8685FoiwgzczYlndthyd of upper limb (20 sources)Fracture of radial neck; Translations: [Closed fracture of neck of radius]Onset: 10-03-2023 Resolved: 831702-56-9726FdyvefqeJepijspzc and duodenitis (20 sources)Bile-induced gastritis; Translations: [Other gastritis without bleeding]Onset: 10-03-2023 Resolved: 113952-38-3086GsyhvxozAidvclwpyaxgy symptoms and ill-defined conditions (20 sources)Female stress incontinence; Translations: [Stress incontinence (female) (male)]Onset: 04-27-2017 Resolved: 103540-97-1963FptukysVbxdp disorders and dislocations; trauma-related (20 sources)Tear of lateral meniscus of knee; Translations: [Tear of medial meniscus of knee]Onset: 02-22-2018 Resolved: 882810-68-2314UqrrawbqEdsaqbl and fatigue (3 sources)Malaise and fatigue; Translations: [Other malaise]Onset: 09-24-2024 04-80-0675UrwibwwsPumoznisni disorders (20 sources)Menopausal flushing; Translations: [Menopausal and female climacteric states]Onset: 06-07-2018 Resolved: 805259-41-2722BmmawqkQcleif and vomiting (9 sources)Nausea and vomiting; Translations: [Nausea with vomiting, unspecified]Onset: 470719-96-5283XsujfsbhNmywgwxhjqdikp (20 sources)Osteoarthritis of knee; Translations: [Osteoarthrosis, localized, not specified whether primary or secondary, lower leg]Onset: 11-09-2019 Resolved: 67-70-1947PsdjtwgKjxdy acquired deformities (20 sources)Lumbar spondylolisthesis; Translations: [Spondylolisthesis, lumbar region]Onset: 982867-51-8918LeeqsactUjbnw aftercare (20 sources)Long-term current use of insulin; Translations: [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 of insulin]Onset: 11-24-2022 Resolved: 636040-47-5517RupbmfqqIzztk bone disease and musculoskeletal deformities (1 source)Other specified disorders of bone density and structure, left thigh; Translations: [Oth disrd of bone density and structure, left thigh]Onset: 22-55-9387EscibzbnQybfe circulatory disease (20 sources)Vasculitis; Translations: [Arteritis, unspecified]Onset: 02-25-2018 Resolved: 476970-33-0847XpvdxjqQpssn connective tissue disease (20 sources)History of total knee arthroplasty; Translations: [Knee joint replacement]Onset: 11-15-2019 Resolved: 570023-82-0793LpbfgzoEuijg connective tissue disease (20 sources)Artificial knee joint present; Translations: [Presence of unspecified artificial knee joint]Onset: 08-23-2022 Resolved: 264265-13-3293YlrwzuuWuotd connective tissue disease (1 source)Personal history of other diseases of the musculoskeletal system and connective tissueOnset: 39-92-7176UgsyqctuJzjtg connective tissue disease (20 sources)Muscle pain; Translations: [Myalgia and myositis, unspecified]Onset: 028543-68-8349CghqgsigMzbdj connective tissue disease (20 sources)Disorder of foot; Translations: [Other enthesopathy of left foot and ankle]Onset: 01-30-2020 Resolved: 870998-21-4033XgeisghtGfjqd connective tissue disease (20 sources)Peroneal tendinitis of left lower limb; Translations: [Peroneal tendinitis, left leg]Onset: 01-30-2020 Resolved: 412074-53-2666LdnyodnpGvwcs connective tissue disease (20 sources)Fibromyalgia; Translations: [Fibromyalgia]Onset: 12-21-2002 Resolved: 594262-21-6526WauowbufPonlb connective tissue disease (20 sources)Pain in right hand; Translations: [Pain in right hand]Onset: 09-01-2023 Resolved: 363874-95-8576DevhwtqlUipkl connective tissue disease (2 sources)Neuralgia and neuritis, unspecified; Translations: [Cervical spine arthritis with nerve pain]Onset: 06-69-6667LjfqstctNarny gastrointestinal disorders (20 sources)Mucus in stool; Translations: [Other fecal abnormalities]Onset: 10-03-2023 Resolved: 186889-03-3304UnuwllreSotec gastrointestinal disorders (20 sources)Abdominal bloating; Translations: [Abdominal distension (gaseous)] Onset: 10-03-2023 Resolved: 257573-22-9453JokinbwdJolnm gastrointestinal disorders (2 sources)Diarrhea, unspecified; Translations: [Diarrhea, unspecified]Onset: 68-12-9481MakbqtilSzjrm gastrointestinal disorders (12 sources)Dysphagia; Translations: [Dysphagia, unspecified]Onset: 08-03-2024 98-51-5122UfwqenfuPifdg gastrointestinal disorders (9 sources)Diarrhea; Translations: [Diarrhea, unspecified]Onset: 04-25-2024 55-13-4513HvxrwvldUwbxw gastrointestinal disorders (9 sources)Constipation; Translations: [Constipation, unspecified]Onset: 809784-77-0240FubtnklbZtllw injuries and conditions due to external causes (20 sources)Hamstring injury; Translations: [Unspecified injury of muscle, fascia and tendon of the posterior muscle group at thigh level, unspecified thigh, initial encounter]Onset: 01-24-2023 Resolved: 170675-70-2621JetybfysLviug injuries and conditions due to external causes (2 sources)Unspecified injury of muscle, fascia and tendon of the posterior muscle group at thigh level, left thigh, initial encounter; Translations: [Unspecified injury of muscle, fascia and tendon of the posterior muscle group at thigh level, left thigh, initial encounter]Onset: 67-52-6792HmmmorsuFheph lower respiratory disease (20 sources)Dyspnea; Translations: [Shortness of breath]Onset: 01-24-2023 Resolved: 192879-25-4528QbcudntuCuhhg lower respiratory disease (1 source)Shortness of breath; Translations: [Shortness of breath]Onset: 05-84-8984BgdkzcvtLxias nervous system disorders (20 sources)H/O: iritis; Translations: [Personal history of other diseases of the nervous system and sense organs]Onset: 04-06-2022 Resolved: 56-45-4556UmlcjyenNfvlo nervous system disorders (1 source)Personal history of other diseases of the nervous system and sense organs; Translations: [H/O iritis]Onset: 12-39-7777OmkijonpMvvfk non-traumatic joint disorders (4 sources)Pain in right knee; Translations: [Pain in joint, lower leg]Onset: 670530-65-4377SgyytcntVylrb nutritional; endocrine; and metabolic disorders (20 sources)Obesity; Translations: [Obesity, unspecified]Onset: 02-17-2023 Resolved: 903224-27-4157MstcyliEfnur nutritional; endocrine; and metabolic disorders (20 sources)Obese class II; Translations: [Obesity, unspecified]Onset: 06-14-2017 Resolved: 050794-13-9073ClzbmalQqkrf nutritional; endocrine; and metabolic disorders (20 sources)Morbid obesity; Translations: [Morbid (severe) obesity due to excess calories]Onset: 11-10-2017 Resolved: 566026-38-9453CklvndpJqore nutritional; endocrine; and metabolic disorders (1 source)Abnormal weight gain; Translations: [Abnormal weight gain]Onset: 95-33-1903PjkvjtzpDiotyzjb codes; unclassified (11 sources)Pain; Translations: [Pain, unspecified]Onset: EpisodicSyncope (20 sources)Syncope; Translations: [Syncope and collapse]Onset: 01-24-2023 Resolved: 473191-55-8361UpmgzgsvKzyihzgenmbo (1 source)Other supraventricular tachycardia (CMS-HCC); Translations: [Other supraventricular tachycardia (CMS-HCC)]Onset: 28-30-8849Wcfhzssuyipo (1 source)Other supraventricular tachycardia; Translations: [Other supraventricular tachycardia]Onset: 87-25-2997Oejqmyzjkypw (3 sources)History of lumbar yjngib29-42-9902Mxhhdxofwmlf (1 source)Sprain of left bisf38-71-5545Bugjgfofzytz (1 source)Supraventricular tachycardia, unspecified; Translations: [Supraventricular tachycardia, unspecified]Onset: 25-89-1781CNQUTFT: Highlighted row has not occurred!Residual codes; unclassified (20 sources)DiseaseEpisodic Results Test NameValueInterpretationReference RangeFacilityCNOVon 27-33-6835JTLTZkxkyo Visit ([facility] ([id number]) 1960 F Date Time Provider Department 02/12/25 10:30 AM YAMILET RAMOS [facility] During your visit today, we recorded the following information about you: Yamilet Ramos R Ac 02/12/2025 5:35 PM Signed The patient did not show up for this appointment. Referring Provider: JOSH MCGOWAN [[id number]] Allergies As of Date: 02/12/2025 Noted Allergy Reaction XELJANZ (TOFACITINIB) 03/08/2024 6 - Diarrhea Date Reviewed: 02/12/2025 Reviewed by: Yamilet Ramos R Ac - Unable to Assess Primary Visit Diagnosis:NO SHOW Prescriptions as of 02/12/2025 - upadacitinib ER (RINVOQ) 15 mg tablet TAKE 1 TABLET BY MOUTH DAILY - predniSONE (DELTASONE) 5 mg tablet TAKE UP TO 3 TABLETS BY MOUTH DAILY NEEDED - albuterol HFA (PROVENTIL HFA, VENTOLIN HFA) 90 mcg/actuation inhaler - aspirin, enteric coated (ASPIRIN, ENTERIC COATED) 81 mg EC tablet Take by mouth. - celecoxib (CELEBREX) 200 mg capsule Celecoxib 200 mg capsule Active 200 MG PO .as needed as needed for pain April 25, 2024 1:00am FreeTextSi capsule with food Orally Once a day as needed; Note: Source Status: Taking; Provider: Rafi Goodman ( ) - Cholecalciferol, Vitamin D3, 25 mcg (1,000 unit) cap Cholecalciferol (Vitamin D3) (Vitamin D3) 1,000 unit Capsule Active 1 CAP PO Daily March 15, 2017 1:00am - cyclobenzaprine (FLEXERIL) 10 mg tablet Take 10 mg by mouth. - Docusate Sodium 100 mg tab Take 100 mg by mouth. - ergocalciferol 50,000 unit capsule (VITAMIN D2, DRISDOL) Take 1.25 mg by mouth. - fluticasone (FLONASE) 50 mcg/actuation nasal spray 1 spray. - gabapentin (NEURONTIN) 300 mg capsule Take by mouth. - ibuprofen (MOTRIN) 200 mg tablet Take by mouth as directed. - lactobacillus rhamnosus (CULTURELLE) 10 billion cell capsule Lactobacillus Rhamnosus Gg (Culturelle) 10 billion cell capsule Active 1 CAP PO Daily April 25, 2024 1:00am - leflunomide (ARAVA) 10 mg tablet Take 10 mg by mouth. - meclizine (ANTIVERT) 25 mg tab Take by mouth. - metoprolol succinate ER (TOPROL XL) 50 mg 24 hr tablet Take 25 mg by mouth. - mirabegron (MYRBETRIQ) 50 mg Tb24 Take 50 mg by mouth. - nirmatrelvir and ritonavir (PAXLOVID) 300 mg (150 mg x 2)-100 mg tablets in a dose pack Take by mouth. - ondansetron orally disintegrating (ZOFRAN ODT) 4 mg disintegrating tablet Take 4 mg by mouth three times a day as needed. - oxybutynin ER (DITROPAN XL) 10 mg 24 hr tablet Oxybutynin Chloride 10 mg tablet extended release 24hr Active 10 MG PO Daily April 25, 2024 1:00am - plecanatide (TRULANCE) 3 mg tablet Take 3 mg by mouth. - potassium chloride 20 mEq TbER Potassium Chloride 20 mEq tablet extended release Active 20 MEQ PO Daily April 25, 2024 1:00am - senna-docusate (SENNA-S) 8.6-50 mg per tablet Take by mouth. - sucralfate (CARAFATE) 1 gram tablet Take by mouth every 12 hours. - tiZANidine (ZANAFLEX) 2 mg tablet Take by mouth. - valACYclovir (VALTREX) 1 gram tablet Take 1,000 mg by mouth. - valsartan (DIOVAN) 80 mg tablet Take 80 mg by mouth. - valsartan (DIOVAN) 160 mg tablet Valsartan 160 mg tablet Active 160 MG PO Daily June 03, 2023 1:00am - hydrOXYchloroQUINE (PLAQUENIL) 200 mg tablet Take two tabs by mouth daily - metoprolol tartrate, short acting, (LOPRESSOR) 50 mg tablet Take 25 mg by mouth twice daily. - multivitamin tablet Take 1 tablet by mouth once daily. - Valsartan-hydroCHLOROthiazide 160-25 mg per tablet Take 1 tablet by mouth once daily. - escitalopram oxalate (LEXAPRO) 20 mg tablet Take 20 mg by mouth daily at bedtime. - QUEtiapine (SEROQUEL) 25 mg tablet Take 25 mg by mouth at bedtime as needed. 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] 01/30/2020 Peroneal tendinitis of left lower extremity [M7*01/30/2020 Generalized epilepsy (HCC) [G40.309] 01/17/2021 01/21/2021 Obesity (BMI 30-39.9) [E66.9] Hypertension [I10] Heart palpitations [R00.2] Hypokalemia [E87.6] H/O iritis [Z86.69] 04/06/2022 Abdominal bloating [R14.0] 09/28/2024 Bulging lumbar disc [M51.369] 09/28/2024 Carpal tunnel syndrome, right upper limb [G56.0*12/09/2023 Diarrhea, unspecified [R19.7] 04/25/2024 Other fecal abnormalities [R19.5] 09/28/2024 Pain in right hand [M79.641] 09/01/2023 Prediabetes [R73.03] 11/15/2023 Abnormal electrocardiography [R94.31] 09/28/2024 Chest pain [R07.9] 09/28/2024 Constipation [K59.00] 09/19/2019 Adjacent segment disease of lumbar spine with h (more content not included)... NormalChillicothe Va Medical CenterRelevant diagnostic tests/laboratory data Narrativeon 81-47-9541Lgpo risk assessmentnoKETTERING HEALTH. Work Phone: MEDO REVIEWDoneCST. VINC[facility]. Work Phone: meds REVIEWDMedications reviewed with [facility]. Work Phone: MRI HXof the lumbar on 01/22/2025 at [facility], of the cervical on 09/18/2024 at [facility] imported images only, will [facility]CH[facility] Work Phone: CBC W Auto Differential panel (Bld)on 01-15-2025 Basophils (Bld) [#/Vol]0.03 10*3/uLNormal<0.11Avon HospitalComment on above: Order Comment: Specimen Type: BLOOD SPECIMEN Ordering Facility: [facility] Address: [address] [place], [place] [address]Performed By: #### 84387-7 #### [facility] CLIA [id number] [address] [place] [address] [place] AMERICABasophils/100 WBC (Bld)0.4 %NormalAv HospitalComment on above:Order Comment: Specimen Type: BLOOD SPECIMEN Ordering Facility: [facility] Address: [address], [place] [address]Performed By: #### 03353-3 #### [facility] CLIA [id number] [address] [place] [address] [place] AMERICADifferential cell count method Nom (Bld) AutoNormalAvon HospitalComment on above:Order Comment: Specimen Type: BLOOD SPECIMEN Ordering Facility: [facility] Address: [address] [place], [place] [address]Performed By: #### 63616-3 #### [facility] [place] [id number] [address] [place] [address] [place] AMERICAEosinophils (Bld) [#/Vol]0.11 10*3/uL Normal<0.46Av HospitalComment on above:Order Comment: Specimen Type: BLOOD SPECIMEN Ordering Facility: [facility] Address: [address] [place], [place] [address]Performed By: #### 20036-2 #### [facility] [place] [id number] [address] [place] [id number] [place] AMERICAEosinophils/100 WBC (Bld)1.6 %NormalAv HospitalComment on above:Order Comment: Specimen Type: BLOOD SPECIMEN Ordering Facility: [facility] Address: [address] [place], [place] [address]Performed By: #### 91031-0 #### [facility] IA [id number] [address] [place] [address] [place] AMERICAErythrocyte distribution width (RBC) [Ratio]12.4 %Rvdvow93.5-15.0Av HospitalComment on above:Order Comment: Specimen Type: BLOOD SPECIMEN Ordering Facility: [facility] Address: [address] [place], [place] [address]Performed By: #### 57423-6 #### [facility] IA [id number] [address] [place] [address] [place] AMERICAHematocrit (Bld) [Volume fraction]37.9 % Mqlewk80.0-46.0Av HospitalComment on above:Order Comment: Specimen Type: BLOOD SPECIMEN Ordering Facility: [facility] Address: [address] [place], [place] [address]Performed By: #### 76039-6 #### [facility] IA [id number] [address] [place] [address] [place] AMERICAHemoglobin (Bld) [Mass/Vol]13.2 g/dL Sqiqli37.5-15.5Avon HospitalComment on above:Order Comment: Specimen Type: BLOOD SPECIMEN Ordering Facility: [facility] Address: [address] [place], [place] [address]Performed By: #### 16763-2 #### [facility] IA [id number] [address] [place] [address] [place] AMERICAImmature granulocytes (Bld) [#/Vol] 10*3/uLNormal<0.10Avon HospitalComment on above:Order Comment: Specimen Type: BLOOD SPECIMEN Ordering Facility: [facility] Address: [address] [place], [place] [address]Performed By: #### 87056-8 #### [facility] IA [id number] [address] [place] [address] [place] AMERICAImmature granulocytes/100 WBC (Bld)0.3 % NormalAv HospitalComment on above:Order Comment: Specimen Type: BLOOD SPECIMEN Ordering Facility: [facility] Address: [address] [place], [place] [address]Performed By: #### 80652-3 #### [facility] IA [id number] [address] [place] [address] [place] AMERICALymphocytes (Bld) [#/Vol]2.17 10*3/uL Normal1.00-4.00Avon HospitalComment on above:Order Comment: Specimen Type: BLOOD SPECIMEN Ordering Facility: [facility] Address: [address] [place], [place] [address]Performed By: #### 53520-9 #### [facility] IA [id number] [address] [place] [address] [place] AMERICALymphocytes/100 WBC (Bld)31.4 %NormalAv HospitalComment on above:Order Comment: Specimen Type: BLOOD SPECIMEN Ordering Facility: [facility] Address: [address] [place], [place] [address]Performed By: #### 91329-7 #### [facility] IA [id number] [place] [address] [facility] (RBC) [Entitic mass]32.9 pgNormal 26.0-34.0Av HospitalComment on above:Order Comment: Specimen Type: BLOOD SPECIMEN Ordering Facility: [facility] Address: [address] [place], [place] [address]Performed By: #### 94237-2 #### [facility] IA [id number] [place] [address] [facility] (RBC) [Mass/Vol]34.8 g/dLNormal 30.5-36.0Av HospitalComment on above:Order Comment: Specimen Type: BLOOD SPECIMEN Ordering Facility: [facility] Address: [address] [place], [place] [address]Performed By: #### 52732-7 #### [facility] IA [id number] [address] [place] [address] [facility] (RBC) [Entitic vol]94.5 fLNormal 80.0-100.0Av HospitalComment on above:Order Comment: Specimen Type: BLOOD SPECIMEN Ordering Facility: [facility] Address: [address] [place], [place] [address]Performed By: #### 59047-7 #### [facility] IA [id number] [place] [address] [place] AMERICAMonocytes (Bld) [#/Vol]0.88 10*3/uLHigh <0.87Av HospitalComment on above:Order Comment: Specimen Type: BLOOD SPECIMEN Ordering Facility: [facility] Address: [address] [place], [place] [address]Performed By: #### 17925-5 #### [facility] IA [id number] [address] [place] [address] [place] AMERICAMonocytes/100 WBC (Bld)12.7 %NormalAv HospitalComment on above:Order Comment: Specimen Type: BLOOD SPECIMEN Ordering Facility: [facility] Address: [address] [place], [place] [id number] By: #### 43281-2 #### [facility] IA [id number] [address] [place] [address] [place] AMERICANeutrophils (Bld) [#/Vol]3.70 10*3/uL Normal1.45-7.50Av HospitalComment on above:Order Comment: Specimen Type: BLOOD SPECIMEN Ordering Facility: [facility] Address: [address] [place], [place] [address]Performed By: #### 98119-5 #### [facility] IA [id number] [address] [place] [address] [place] AMERICANeutrophils/100 WBC (Bld)53.6 %NormalAv HospitalComment on above:Order Comment: Specimen Type: BLOOD SPECIMEN Ordering Facility: [facility] Address: [address] [place], [place] [address]Performed By: #### 84247-6 #### [facility] IA [id number] [address] [place] [address] [place] AMERICANucleated RBC (Bld) [#/Vol]10*3/uLNormal <0.01Av HospitalComment on above:Order Comment: Specimen Type: BLOOD SPECIMEN Ordering Facility: [facility] Address: [address] [place], [place] [address]Performed By: #### 07342-2 #### [facility] IA [id number] [address] [place] [address] [place] AMERICANucleated RBC/100 WBC (Bld) [Ratio]0.0 /100 WBCNormalAvon HospitalComment on above:Order Comment: Specimen Type: BLOOD SPECIMEN Ordering Facility: [facility] Address: [address] [place], [place] [address]Performed By: #### 27930-4 #### [facility] IA [id number] [address] [place] [address] [place] AMERICAPlatelet mean volume (Bld) [Entitic vol] 10.7 fLNormal9.0-12.7Avon HospitalComment on above:Order Comment: Specimen Type: BLOOD SPECIMEN Ordering Facility: [facility] Address: [address] [place] [id number] By: #### 42561-0 #### [facility] IA [id number] [address] [facility] [place] [address] [facility] NORTHPlategoddard memorial hospital (Bld) [#/Vol]208 10*3/uLNormal 150-400Av HospitalComment on above:Order Comment: Specimen Type: BLOOD SPECIMEN Ordering Facility: [facility] Address: [address] [place], [place] [address]Performed By: #### 28399-7 #### [facility] IA [id number] [address] [place] [address] [facility] (d) [#/Vol]4.01 10*6/uLNormal 3.90-5.20Av HospitalComment on above:Order Comment: Specimen Type: BLOOD SPECIMEN Ordering Facility: [facility] Address: [address] [place], [place] [address]Performed By: #### 16618-1 #### [facility] IA [id number] [address] [place] [address] [facility] NORTHW (d) [#/Vol]6.91 10*3/uLNormal 3.70-11.00Av HospitalComment on above:Order Comment: Specimen Type: BLOOD SPECIMEN Ordering Facility: [facility] Address: [address] [place], [place] [address]Performed By: #### 38123-5 #### [facility] IA [id number] [address] [place] [address] [facility] NORTHCNOVon 65-96-9226ZWUNHrtiit Visit ([facility] ABIMBOLACATY ([id number]) 1960 F Date Time Provider Department 01/15/25 12:00 PM YAMILET RAMOS [facility] During your visit today, we recorded the following information about you: Yamilet Ramos R Ac 01/15/2025 12:31 PM Signed Caty Dhiraj Abimbola a 64 year old female presents to the acupuncture clinic on 01/15/25 for a follow up visit. Patient identity confirmed by name and : Yes This is the 2nd visit for the patient this year Initial Acupuncture treatment date: 01-10-25 Chief Complaint and Subjective: Chronic low back pain Chronic neck pain Chronic upper back pain Chronic mid back pain Response/update. Patient notes she felt very good day after acupuncture, then she had a physical therapy session which caused her to have much pain up until today's visit. Moderate pain intensities. Notes from [facility] 01-10-25 Patient has a history of lumbar fusion with intact surgical hardware, lumbar anterolisthesis, lumbar retrolisthesis, lumbar degenerative disc disease, lumbar facet arthropathy, cervical anterolisthesis, cervical degenerative disc disease, cervical stenosis, bilateral total knee replacements. Patient states that these pains have been happening for years and even longer. She remarks that the pains are constantly present with some let up on the pain when she takes a muscle relaxant. Pains to low back are primarily on the right side and with some sciatica going down left leg. Patient says that these pains have negatively impacted her activities of daily life, but she still forces herself to be as active as she can be and not being confined to her home fully. Patient notes going through Pain Management and Physical Therapy. Notes from Pain Management 11-27-24 The patient is a 64-year-old female with rheumatoid arthritis and tachycardia with a loop recorder, presenting for evaluation and management of chronic neck and low back pain. Patient reports the date of onset of symptoms as 1 year and describes the location of the pain as posterior neck. The pain is chronic, radiating, and rated as 7, radiates up head. Patient reports that neck pain is increased by pain is constant and relieved by prednisone. HPI: Neck Pain: - Onset last year. - Pain radiates down through shoulders, worse on the left side. - Tolerable in the morning, worsens throughout the day, leading to severe headaches by evening. - Pain is bilateral but more pronounced on the left side. - Recent MRI of the neck performed by Dr. No. - Caty is taking Prednisone 5 mg PRN for relief; prescribed by Dr. No. - Denies any issues with neck positions or range of motion. Low Back Pain: - Chronic, intermittent pain for years; worsens during flare-ups with inflammation. - Caty underwent spinal fusion surgery with a cage and three screws in [place] by Dr. Marcelo approximately 10-15 years ago; provided some pain relief. - Fractured lower back 2 years ago after a fall on the front porch; treated by Dr. Jerry Johnson with cement injection. - Experiences numbness and muscle spasms in the left leg, especially at night. - Pain radiates from the knee down to the hip on the left side. - Pain is alleviated by standing and walking; worsens with prolonged sitting. - Uses specific stretches and exercises for relief. - Denies recent physical therapy or chiropractic treatment. - No recent imaging of the lower back. Rheumatoid Arthritis: - Managed by Dr. No. - Caty is taking Rinvoq for several years; previously tried other biologics but found Rinvoq most tolerable. Tachycardia: - Caty has a loop recorder implanted. - Underwent an electrophysiology study in [place], which was inconclusive. PAIN ASSESSMENT: Currently experiencing pain Pain better with acupuncture OBJECTIVE: Alert, Moderate distress, and Cooperative Well-Groomed and Pleasant Normal breathing pattern TCM Tongue: --- TCM Pulse: --- ASSESSMENT Patient presents with signs and symptoms consistent with the diagnosis. Patient would benefit from acupuncture therapy to address listed deficiencies and return to PLOF. Pt was educated on symptoms, prognosis, plan of care and activity modifications. Pt verbalized understanding and agreed to begin care. TCM Pattern: chronic low back pain, chronic neck pain, chronic upper back pain, chronic mid back pain TCM Treatment Principle: smooth qi PLAN OF CARE Counseled patient on risks of acupuncture treatment including pain, infection, bleeding, and no relief of pain. The patient was positioned comfortably. There was no evidence of infection at the site of needle insertions. Acupuncture Treatment: Treatment/Needle Set 1, Prone: Points: medardo neck, upper back, mid back, and low back without electro due to surgical hardware. 25 minutes face to face with pat (more content not included)...NormalChillicothe Va Medical CenterComprehensive metabolic 2000 panelon [id number] [Mass/Vol]4.2 g/dLNormal3.9-4.9Avon HospitalComment on above:Order Comment: Specimen Type: BLOOD SPECIMEN Ordering Facility: [facility] Address: [address] [place], [place] [address]Performed By: #### 95793-2 #### [facility] CLIA [id number] [address] [place] [address] [place] AMERICAALP [Catalytic activity/Vol]60 U/LNormal 34-123Av HospitalComment on above:Order Comment: Specimen Type: BLOOD SPECIMEN Ordering Facility: [facility] Address: [address] [place], [place] [address]Performed By: #### 97460-2 #### [facility] [place] [id number] [address] [place] [address] [place] AMERICAALT [Catalytic activity/Vol]25 U/LNormal 7-38Av HospitalComment on above:Order Comment: Specimen Type: BLOOD SPECIMEN Ordering Facility: [facility] Address: [address] [place], [place] [address]Performed By: #### 08383-5 #### [facility] [place] [id number] [address] [place] [address] [place] AMERICAAnion gap [Moles/Vol]11 mmol/LNormal8-15 [facility] HospitalComment on above:Order Comment: Specimen Type: BLOOD SPECIMEN Ordering Facility: [facility] Address: [address] [place], [place] [address]Performed By: #### 98021-4 #### [facility] IA [id number] [address] [place] [address] [place] AMERICAAST [Catalytic activity/Vol]24 U/LNormal 13-35Av HospitalComment on above:Order Comment: Specimen Type: BLOOD SPECIMEN Ordering Facility: [facility] Address: [address] [place], [place] [address]Performed By: #### 27178-3 #### [facility] IA [id number] [address] [place] [address] [place] AMERICABilirubin [Mass/Vol]0.3 mg/dLNormal 0.2-1.3Avon HospitalComment on above:Order Comment: Specimen Type: BLOOD SPECIMEN Ordering Facility: [facility] Address: [address] [place], [place] [address]Performed By: #### 64470-3 #### [facility] IA [id number] [address] [place] [address] [place] AMERICACalcium [Mass/Vol]9.0 mg/dLNormal8.5-10.2 Leslie HospitalComment on above:Order Comment: Specimen Type: BLOOD SPECIMEN Ordering Facility: [facility] Address: [address] [place], [place] [address]Performed By: #### 62104-1 #### [facility] IA [id number] [address] [place] [address] [place] AMERICAChloride [Moles/Vol]102 mmol/LNormal 98-107Avon HospitalComment on above:Order Comment: Specimen Type: BLOOD SPECIMEN Ordering Facility: [facility] Address: [address] [place], [place] [address]Performed By: #### 40308-2 #### [facility] IA [id number] [address] [place] [address] [place] AMERICACO2 [Moles/Vol]21 mmol/PAaa25-56Kdcv HospitalComment on above:Order Comment: Specimen Type: BLOOD SPECIMEN Ordering Facility: [facility] Address: [address] [place], [place] [address]Performed By: #### 85380-8 #### [facility] IA [id number] [address] [place] [address] [place] AMERICACreatinine [Mass/Vol]0.79 mg/dLNormal 0.58-0.96Av HospitalComment on above:Order Comment: Specimen Type: BLOOD SPECIMEN Ordering Facility: [facility] Address: [address] [place], [place] [id number] By: #### 71061-3 #### [facility] CLIA [id number] [address] [place] [address] [place] AMERICAeGFRcr SerPlBld CKD-EPI 767818 mL/min/1.73m???Normal>=60Av HospitalComment on above:Order Comment: Specimen Type: BLOOD SPECIMEN Ordering Facility: [facility] Address: [address] [place], [place] [address]Result Comment: Estimated Glomerular Filtration Rate (eGFR) is calculated using the 2020 CKD-EPI cre atinine equation. This equation utilizes serum creatinine, sex, and age as parameters. The creatinine assay has traceable calibration to isotope dilution- mass spectrometry. Refer to KDIGO guidelines for clinical interpretation. In patients with unstable renal function, e.g. those with acute kidney injury, the eGFR may not accurately reflect actual GFR.Performed By: #### 84320-3 #### [facility] CLIA [id number] [address] [place] [address] [place] AMERICAGlucose [Mass/Vol]88 mg/zLCigfux92-24Woez HospitalComment on above:Order Comment: Specimen Type: BLOOD SPECIMEN Ordering Facility: [facility] Address: [address] [place], [place] [address]Result Comment: The [place] Diabetes Association (ADA) provides guidance for cutoff values for fasting glucose and random glucose. The ADA defines fasting as no caloric intake for at least 8 hours. Fasting plasma glucose results between 100 to 125 mg/dL indicate increased risk for diabetes (prediabetes). Fasting plasma glucose results greater than or equal to 126 mg/dL meet the criteria for diagnosis of diabetes. In the absence of unequivocal hyperglycemia, results should be confirmed by repeat testing. In a patient with classic symptoms of hyperglycemia or hyperglycemic crisis, random plasma glucose results greater than or equal to 200 mg/dL meet the criteria for diagnosis of diabetes. Reference: Standards of Medical Care in Diabetes 2016, [place] [employer] Association. Diabetes Care. 2016.39(Suppl 1).Performed By: #### 01438-9 #### [facility] CLIA [id number] [address] [place] [address] [place] AMERICAPotassium [Moles/Vol]4.0 mmol/LNormal 3.7-5.1Ahunterdon medical center HospitalComment on above:Order Comment: Specimen Type: BLOOD SPECIMEN Ordering Facility: [facility] Address: [address] [place], [place] [address]Performed By: #### 12642-8 #### [facility] IA [id number] [place] [address] [place] AMERICAProtein [Mass/Vol]6.7 g/dLNormal6.3-8.0 [facility] HospitalComment on above:Order Comment: Specimen Type: BLOOD SPECIMEN Ordering Facility: [facility] Address: [address] [place], [place] [address]Performed By: #### 59963-1 #### [facility] [id number] [place], [place] [address] [place] AMERICASodium [Moles/Vol]134 mmol/VJfu679-752 [facility] HospitalComment on above:Order Comment: Specimen Type: BLOOD SPECIMEN Ordering Facility: [facility] Address: [address] [place], [place] [address]Performed By: #### 41436-2 #### [facility] [id number] [place] [address] [place] AMERICAUrea nitrogen [Mass/Vol]21 mg/dLNormal 7-21[facility] HospitalComment on above:Order Comment: Specimen Type: BLOOD SPECIMEN Ordering Facility: [facility] Address: [address] [place], [place] [address]Performed By: #### 60832-6 #### [facility] [id number] [address] [place] [address] [place] AMERICAOrders Onlyon [id number] Only [id number] Caty Hills 1960 F Date Provider Department Center 01/11/2025 GINI LORENZANA [facility] Family History Problem Relation Age of Onset Atrial fibrillation Mother Heart attack Mother Valvular heart disease Father Valvular heart disease Sister Atrial fibrillation Maternal Grandmother Family Status - Relation Status Age at Mother Father Alive Sister Alive Brother Alive Maternal GrandmotherNFairfield Medical CenterCNOV 01-10-2025 CNOVOffice Visit ([facility] CATY HILLS ([id number]) 1960 F Date Time Provider Department 01/10/25 8:00 AM YAMILET RAMOS [facility] During your visit today, we recorded the following information about you: Yamilet Ramos R Ac 01/10/2025 8:54 AM Signed Caty Hills a 64 year old female presents to the acupuncture clinic on 01/10/25 for an initial consultation. Patient identity confirmed by name and : Yes Chief Complaint and Subjective: Chronic low back pain Chronic neck pain Chronic upper back pain Chronic mid back pain Other history: rheumatoid arthritis, headaches, chronic knee pains Patient has a history of lumbar fusion with intact surgical hardware, lumbar anterolisthesis, lumbar retrolisthesis, lumbar degenerative disc disease, lumbar facet arthropathy, cervical anterolisthesis, cervical degenerative disc disease, cervical stenosis, bilateral total knee replacements. Patient states that these pains have been happening for years and even longer. She remarks that the pains are constantly present with some let up on the pain when she takes a muscle relaxant. Pains to low back are primarily on the right side and with some sciatica going down left leg. Patient says that these pains have negatively impacted her activities of daily life, but she still forces herself to be as active as she can be and not being confined to her home fully. Patient notes going through Pain Management and Physical Therapy. Notes from Pain Management 11-27-24 The patient is a 64-year-old female with rheumatoid arthritis and tachycardia with a loop recorder, presenting for evaluation and management of chronic neck and low back pain. Patient reports the date of onset of symptoms as 1 year and describes the location of the pain as posterior neck. The pain is chronic, radiating, and rated as 7, radiates up head. Patient reports that neck pain is increased by pain is constant and relieved by prednisone. HPI: Neck Pain: - Onset last year. - Pain radiates down through shoulders, worse on the left side. - Tolerable in the morning, worsens throughout the day, leading to severe headaches by evening. - Pain is bilateral but more pronounced on the left side. - Recent MRI of the neck performed by Dr. No. - Caty is taking Prednisone 5 mg PRN for relief; prescribed by Dr. No. - Denies any issues with neck positions or range of motion. Low Back Pain: - Chronic, intermittent pain for years; worsens during flare-ups with inflammation. - Caty underwent spinal fusion surgery with a cage and three screws in [place] by Dr. Marcelo approximately 10-15 years ago; provided some pain relief. - Fractured lower back 2 years ago after a fall on the front porch; treated by Dr. Jerry Johnson with cement injection. - Experiences numbness and muscle spasms in the left leg, especially at night. - Pain radiates from the knee down to the hip on the left side. - Pain is alleviated by standing and walking; worsens with prolonged sitting. - Uses specific stretches and exercises for relief. - Denies recent physical therapy or chiropractic treatment. - No recent imaging of the lower back. Rheumatoid Arthritis: - Managed by Dr. No. - Caty is taking Rinvoq for several years; previously tried other biologics but found Rinvoq most tolerable. Tachycardia: - Caty has a loop recorder implanted. - Underwent an electrophysiology study in [place], which was inconclusive. The patient's history is well detailed in the EMR. OBJECTIVE: Physical Exam: Tenderness: mild Pain with palpation: mild ROM: limited per patient remarks Tightness: trap muscles Gait/Ambulation: slower Black[place]: good Qi/Patient vitality: good Alert, Moderate distress, and Cooperative Well-Groomed and Pleasant Normal breathing pattern Imaging reports Images on file EMR TCM Tongue: --- TCM Pulse: --- ASSESSMENT Patient presents with signs and symptoms consistent with the diagnosis. Patient would benefit from acupuncture therapy to address listed deficiencies and return to PLOF. Pt was educated on symptoms, prognosis, plan of care and activity modifications. Pt verbalized understanding and agreed to begin care. TCM Pattern: chronic low back pain, chronic neck pain, chronic upper back pain, chronic mid back pain TCM Treatment Principle: smooth qi PLAN OF CARE Counseled patient on risks of acupuncture treatment including pain, infection, bleeding, and no relief of pain. The patient was positioned comfortably. There was no evidence of infection at the site of needle insertions. Counseled patient on differences between Shared Acupuncture Medical Appointment and Private Visit follow-ups. Patient is a suitable candidate for Shared Acupuncture Medical Appointments (NELSY): No Recommended Treatment Schedule: weekly x 3 weeks, (more content not included)... NormalGreen [facility] [id number] Visit (GEORGE) CATY HILLS ([id number]) 1960 F Date Time Provider Department 01/02/25 4:20 PM CHRIS NO During your visit today, we recorded the following information about you: Respiration Weight Height 16/minute 103.8 kg 1.702 m Chris No MD 01/02/2025 4:45 PM Signed Rheumatology Outpatient Clinic Date of Service: 01/02/2025 Patient: Caty Hills Medical Record: [id number] Primary Care Physician: Anibal Juan DO, DO Last Rheumatology visit: 09/10/2024 (with Chris No) History of Present Illness Caty Hills is a 64 year old White female who presents on 01/02/2025 for an in-person visit for evaluation of Rheumatoid Arthritis (Follow up). She is currently taking hydroxychloroquine sulfate, meloxicam, prednisone, upadacitinib. Her most recent CHERIE was negative (07/11/2020). HISTORY OF PRESENT ILLNESS This patient is known to me from my previous practice with [facility] with diagnosis of rheumatoid arthritis. This patient has been on DMARD therapy in the past with methotrexate and has not tolerated it well. She had been on a sequence of Biologics and when last seen in May 2021 was on Rinvoq 15 mg daily and doing well. Then in June 2021 that she developed a bout of iritis. She was being seen by a different real estate specialist with [facility] and switch her off of Rinvoq and placed her on Humira for the iritis. The patient has tolerated the Humira and it is improved her iritis. She has not needed to be on topical steroid treatment for her eyes in several months now. She does get some breakthrough discomfort in her eyes but no full-blown iritis. Where is a bigger problem is off of the Rinvoq she is had escalation of rheumatoid arthritis activity in her hands, wrists, shoulders, right knee and toes despite being on the Humira. Her other real estate specialist is even attempted to place methotrexate in combination with the Humira and this did not improve her rheumatoid arthritis and she felt ill on the methotrexate and has discontinued it. She was inquiring as to whether or not she would be allowed to go back onto the Rinvoq. Aside from the iritis she has not experienced any other extra-articular manifestations of rheumatoid arthritis. She shares with me that she had her right knee replaced 3 months ago and it is not doing as well as the left knee did from 2-1/2 years ago. The right knee remains quite swollen and painful and she believes the rheumatoid arthritis may be contributing to the right knee pain. INTERVAL HISTORY Patient returns for reevaluation and management of her rheumatoid arthritis. Since last visit patient continues Rinvoq 15 mg daily and hydroxychloroquine at 200 mg daily. Rheumatoid arthritis been under fair control on a global basis. She is having specific areas that are a problem for her particularly her knees of the left knee replacement is structurally somewhat on sound. She is in physical therapy and bracing for this with fair results. She has been under the care of spine medicine current recommendation is physical therapy for spinal stabilization. Thus far there has been subtle response. She is now working with a spine surgeon with [place] [facility] and he believes there is instability in both the cervical and lumbar spine and has an MRI of the lumbar spine scheduled for late January. There are no new extra-articular manifestations of rheumatoid arthritis. Her general health has been unchanged from last visit. Rheum/Ortho Arthrocentesis Injections (last 5) 03/02/2023 12:44 Injection History Location thumb Thumb Site R thumb [facility] Patient-Entered Data PAIN EVALUATION 01/02/2025 1621 Pain Level: 6 Pain Location: Neck-Posterior Description: Aching Duration Units: Years PROMIS Assessments 09/22/2024 07/31/2023 PROMIS Assessments Physical Health Percentile 7 10 Mental Health Percentile 13 26 Pain Score 3 3 Pain Interference Percentile 4 Fatigue Percentile 10 Physical Function Percentile 7 RAPID 3 [place] Activities of Daily Living 07/31/2023 3:09 PM Dress self? With SOME difficulty Get in and out of bed? With SOME difficulty Walk outdoors? With SOME difficulty Wash and dry body? Without ANY difficulty Get in and out of car? With SOME difficulty RAPID 3 Disease Activity Weighed Score Levels: 0 - 1: Near Remission 1.3 - 2.0: Low Severity 2.3 - 4.0: Moderate Severity 4.3 - 10.0: High Severity 07/31/2023 RAPID-3 Weighed Score RAPID 3 Weighed Score 4.83 (High severity ) Review of Systems Review of Systems CONSTITUTION: Negative for: Weight loss or gain, Fever. Chills, Night sweats HEENT: Negative for: Nosebleeds, Mouth sores, Trouble swallowing, Dry mouth RESPIRATORY: Negative for: Cough, Shortness of breath, Pain with breathing, Coughing up blood GASTROINTE (more content not included)...NormalChillicothe Va Medical CenterCNPNon [id number] (COREYAVN) CATY HILLS ([id number]) 1960 F Date Time Provider Department 12/18/24 JOSH MCGOWAN During your visit today, we recorded the following information about you: Yamilka Ambriz 12/18/2024 10:26 AM [facility] on behalf Caty is calling Josh Mcgowan MD today to request images from patient's Cervical Spine MRI from 09/18. They state they've received discs with all other imaging other than this MRI. Patient is currently at their office. Please call to advise. [phone] ext [phone] Patient has been identified by name and birthdate. Duration of symptoms: N/A Was an appointment scheduled: No Closing statement: Results or non-symptom based questions: Thank you for calling [facility], your call will be returned within the next business day. Kellee Singh RN 12/19/2024 12:36 PM Signed I called and spoke with the patient. I informed the patient that she would need to call the radiology department or the facility that the MRI was completed to request a disc to either be picked up or sent to her home. Patient voiced understanding. Allergies As of Date: 12/18/2024 Noted Allergy Reaction XELJANZ (TOFACITINIB) 03/08/2024 6 - Diarrhea Date Reviewed: 11/27/2024 Reviewed by: Josh Mcgowan MD - Fully Assessed Prescriptions as of 12/19/2024 - upadacitinib ER (RINVOQ) 15 mg tablet TAKE 1 TABLET BY MOUTH DAILY - predniSONE (DELTASONE) 5 mg tablet TAKE UP TO 3 TABLETS BY MOUTH DAILY NEEDED - albuterol HFA (PROVENTIL HFA, VENTOLIN HFA) 90 mcg/actuation inhaler - aspirin, enteric coated (ASPIRIN, ENTERIC COATED) 81 mg EC tablet Take by mouth. - celecoxib (CELEBREX) 200 mg capsule Celecoxib 200 mg capsule Active 200 MG PO .as needed as needed for pain April 25, 2024 1:00am [employer] capsule with food Orally Once a day as needed; Note: Source Status: Taking; Provider: Rafi Goodman ( ) - Cholecalciferol, Vitamin D3, 25 mcg (1,000 unit) cap Cholecalciferol (Vitamin D3) (Vitamin D3) 1,000 unit Capsule Active 1 CAP PO Daily March 15, 2017 1:00am - cyclobenzaprine (FLEXERIL) 10 mg tablet Take 10 mg by mouth. - Docusate Sodium 100 mg tab Take 100 mg by mouth. - ergocalciferol 50,000 unit capsule (VITAMIN D2, DRISDOL) Take 1.25 mg by mouth. - fluticasone (FLONASE) 50 mcg/actuation nasal spray 1 spray. - gabapentin (NEURONTIN) 300 mg capsule Take by mouth. - ibuprofen (MOTRIN) 200 mg tablet Take by mouth as directed. - lactobacillus rhamnosus (CULTURELLE) 10 billion cell capsule Lactobacillus Rhamnosus Gg (Culturelle) 10 billion cell capsule Active 1 CAP PO Daily April 25, 2024 1:00am - leflunomide (ARAVA) 10 mg tablet Take 10 mg by mouth. - meclizine (ANTIVERT) 25 mg tab Take by mouth. - metoprolol succinate ER (TOPROL XL) 50 mg 24 hr tablet Take 25 mg by mouth. - mirabegron (MYRBETRIQ) 50 mg Tb24 Take 50 mg by mouth. - nirmatrelvir and ritonavir (PAXLOVID) 300 mg (150 mg x 2)-100 mg tablets in a dose pack Take by mouth. - ondansetron orally disintegrating (ZOFRAN ODT) 4 mg disintegrating tablet Take 4 mg by mouth three times a day as needed. - oxybutynin ER (DITROPAN XL) 10 mg 24 hr tablet Oxybutynin Chloride 10 mg tablet extended release 24hr Active 10 MG PO Daily April 25, 2024 1:00am - plecanatide (TRULANCE) 3 mg tablet Take 3 mg by mouth. - potassium chloride 20 mEq TbER Potassium Chloride 20 mEq tablet extended release Active 20 MEQ PO Daily April 25, 2024 1:00am - pregabalin (LYRICA) 50 mg capsule Take 50 mg by mouth three times a day. - senna-docusate (SENNA-S) 8.6-50 mg per tablet Take by mouth. - sucralfate (CARAFATE) 1 gram tablet Take by mouth every 12 hours. - tiZANidine (ZANAFLEX) 2 mg tablet Take by mouth. - valACYclovir (VALTREX) 1 gram tablet Take 1,000 mg by mouth. - valsartan (DIOVAN) 80 mg tablet Take 80 mg by mouth. - valsartan (DIOVAN) 160 mg tablet Valsartan 160 mg tablet Active 160 MG PO Daily June 03, 2023 1:00am - atogepant (QULIPTA) 60 mg tablet Take 60 mg by mouth once daily. - hydrOXYchloroQUINE (PLAQUENIL) 200 mg tablet Take two tabs by mouth daily - meloxicam (MOBIC) 15 mg tablet take 1 tablet by mouth daily - metoprolol tartrate, short acting, (LOPRESSOR) 50 mg tablet Take 25 mg by mouth twice daily. - multivitamin tablet Take 1 tablet by mouth once daily. - ascorbic acid, vitamin C, (VITAMIN C) 500 mg tablet Take 1 tablet by mouth two times a day with meals. - Valsartan-hydroCHLOROthiazide 160-25 mg per tablet Take 1 tablet by mouth once daily. - escitalopram oxalate (LEXAPRO) 20 mg tablet Take 20 mg by mouth daily at bedtime. - QUEtiapine (SEROQUEL) 25 mg tablet Take 25 mg by mouth at bedtime as needed. Take 1-2 tabs as needed for sleep - Sefizihjwnphg-Pxjnhstr-Xydebq (MULTI (more content not included)...Normal Chillicothe Va Medical CenterRelevant diagnostic tests/laboratory data Narrativeon [id number] SCAN HXof the Cervical Spine on [facility]. Work Phone: Fall risk assessmentCoshocton [facility] Medical [facility]. Work Phone: MEDL REVIEWDocumentation of current medications (procedure)[facility] Work Phone: MEDB REVIEWDMedications reviewed with [facility]. Work Phone: CNPNon [id number] (ORARMINDAA) CATY HILLS ([id number]) 1960 F Date Time Provider Department 11/28/24 JOSH MCGOWAN During your visit today, we recorded the following information about you: Nicki Alfredo 11/28/2024 4:59 PM Addendum C 2-3 and C 3-4 bilateral mnbb WEIGMAN, CATY [id number] ELSIE MCGOWAN can schedule in 2 months from now [facility] First attempt to schedule injection. Left detailed voicemail asking patient to return call to surgery coordinator at [phone]. Nicki Alfredo 11/29/2024 9:07 AM Signed C 2-3 and C 3-4 bilateral CATY Maciel [id number] ELSIE MCGOWAN can schedule in 2 months from now [facility] Spoke to patient. She declined scheduling at this time. Allergies As of Date: 11/28/2024 Noted Allergy Reaction XELJANZ (TOFACITINIB) 03/08/2024 6 - Diarrhea Date Reviewed: 11/27/2024 Reviewed by: Josh Mcgowan MD - Fully Assessed Reason for Visit: Schedule Injection [7697] Prescriptions as of 11/29/2024 - predniSONE (DELTASONE) 5 mg tablet TAKE UP TO 3 TABLETS BY MOUTH DAILY NEEDED - albuterol HFA (PROVENTIL HFA, VENTOLIN HFA) 90 mcg/actuation inhaler - aspirin, enteric coated (ASPIRIN, ENTERIC COATED) 81 mg EC tablet Take by mouth. - celecoxib (CELEBREX) 200 mg capsule Celecoxib 200 mg capsule Active 200 MG PO .as needed as needed for pain April 25, 2024 1:00am [employer] capsule with food Orally Once a day as needed; Note: Source Status: Taking; Provider: Rafi Goodman ( ) - Cholecalciferol, Vitamin D3, 25 mcg (1,000 unit) cap Cholecalciferol (Vitamin D3) (Vitamin D3) 1,000 unit Capsule Active 1 CAP PO Daily March 15, 2017 1:00am - cyclobenzaprine (FLEXERIL) 10 mg tablet Take 10 mg by mouth. - Docusate Sodium 100 mg tab Take 100 mg by mouth. - ergocalciferol 50,000 unit capsule (VITAMIN D2, DRISDOL) Take 1.25 mg by mouth. - fluticasone (FLONASE) 50 mcg/actuation nasal spray 1 spray. - gabapentin (NEURONTIN) 300 mg capsule Take by mouth. - ibuprofen (MOTRIN) 200 mg tablet Take by mouth as directed. - lactobacillus rhamnosus (CULTURELLE) 10 billion cell capsule Lactobacillus Rhamnosus Gg (Culturelle) 10 billion cell capsule Active 1 CAP PO Daily April 25, 2024 1:00am - leflunomide (ARAVA) 10 mg tablet Take 10 mg by mouth. - meclizine (ANTIVERT) 25 mg tab Take by mouth. - metoprolol succinate ER (TOPROL XL) 50 mg 24 hr tablet Take 25 mg by mouth. - mirabegron (MYRBETRIQ) 50 mg Tb24 Take 50 mg by mouth. - nirmatrelvir and ritonavir (PAXLOVID) 300 mg (150 mg x 2)-100 mg tablets in a dose pack Take by mouth. - ondansetron orally disintegrating (ZOFRAN ODT) 4 mg disintegrating tablet Take 4 mg by mouth three times a day as needed. - oxybutynin ER (DITROPAN XL) 10 mg 24 hr tablet Oxybutynin Chloride 10 mg tablet extended release 24hr Active 10 MG PO Daily April 25, 2024 1:00am - plecanatide (TRULANCE) 3 mg tablet Take 3 mg by mouth. - potassium chloride 20 mEq TbER Potassium Chloride 20 mEq tablet extended release Active 20 MEQ PO Daily April 25, 2024 1:00am - pregabalin (LYRICA) 50 mg capsule Take 50 mg by mouth three times a day. - senna-docusate (SENNA-S) 8.6-50 mg per tablet Take by mouth. - sucralfate (CARAFATE) 1 gram tablet Take by mouth every 12 hours. - tiZANidine (ZANAFLEX) 2 mg tablet Take by mouth. - valACYclovir (VALTREX) 1 gram tablet Take 1,000 mg by mouth. - valsartan (DIOVAN) 80 mg tablet Take 80 mg by mouth. - valsartan (DIOVAN) 160 mg tablet Valsartan 160 mg tablet Active 160 MG PO Daily June 03, 2023 1:00am - atogepant (QULIPTA) 60 mg tablet Take 60 mg by mouth once daily. - hydrOXYchloroQUINE (PLAQUENIL) 200 mg tablet Take two tabs by mouth daily - meloxicam (MOBIC) 15 mg tablet take 1 tablet by mouth daily - metoprolol tartrate, short acting, (LOPRESSOR) 50 mg tablet Take 25 mg by mouth twice daily. - multivitamin tablet Take 1 tablet by mouth once daily. - ascorbic acid, vitamin C, (VITAMIN C) 500 mg tablet Take 1 tablet by mouth two times a day with meals. - Valsartan-hydroCHLOROthiazide 160-25 mg per tablet Take 1 tablet by mouth once daily. - escitalopram oxalate (LEXAPRO) 20 mg tablet Take 20 mg by mouth daily at bedtime. - QUEtiapine (SEROQUEL) 25 mg tablet Take 25 mg by mouth at bedtime as needed. Take 1-2 tabs as needed for sleep - Qmvwmiifvnfpm-Pcpcpzus-Eftijz (MULTIVITAMIN 50 PLUS) tab Take 1 tablet by mouth once daily. - pantoprazole DR (PROTONIX) 40 mg tablet Take 40 mg by mouth once daily. Meds Comments as of 12/30/2018: Pt sts does not have med list Problem List As Of Date 11/28/2024 Noted Resolved fibromyalgia [XXO9683] 12/21/2002 Metatarsus adductus of both feet [Q66.221, Q66.*06/18/2019 Rheumatoid arthritis (HCC) [M06.9] 06/18/2019 Closed displaced fracture of fifth metatarsal (more content not included)... NormalCh[facility]ic[facility] CenterXR [facility] LEFT 3 VIEWSon 11-28-2024 Source Facility: [facility] Interpreted By: Rodney Lamb, STUDY: XR KNEE LEFT 3 VIEWS; 11/28/2024 2:45 pm INDICATION: Signs/Symptoms:pain. ACCESSION NUMBER(S): [id number] ORDERING CLINICIAN: RODNEY LAMB FINDINGS: Left knee three views. Status post total knee replacement slight posterior slip subluxation of the femur on the tibia on the lateral x-ray which is a change from previous x-ray no evidence of fracture dislocation or other bony abnormality Signed by: Rodney Lamb 11/28/2024 3:31 PM Dictation workstation: [id number], Radiologist, - 11/28/2024 Source Facility: [facility] Interpreted By: Rodney Lamb, STUDY: XR KNEE LEFT 3 VIEWS; 11/28/2024 2:45 pm INDICATION: Signs/Symptoms:pain. ACCESSION NUMBER(S): [id number] ORDERING CLINICIAN: RODNEY LAMB FINDINGS: Left knee three views. Status post total knee replacement slight posterior slip subluxation of the femur on the tibia on the lateral x-ray which is a change from previous x-ray no evidence of fracture dislocation or other bony abnormality Signed by: Rodney Lamb 11/28/2024 3:31 PM Dictation workstation: [id number] [facility] 3 VIEWSInterpreted By: Rodney Lamb, STUDY: XR KNEE LEFT 3 VIEWS; 11/28/2024 2:45 pm INDICATION: Signs/Symptoms:pain. ACCESSION NUMBER(S): [id number] ORDERING CLINICIAN: RODNEY LAMB FINDINGS: Left knee three views. Status post total knee replacement slight posterior slip subluxation of the femur on the tibia on the lateral x-ray which is a change from previous x-ray no evidence of fracture dislocation or other bony abnormality Signed by: Rodney Lamb 11/28/2024 3:31 PM Dictation workstation: [id number]a Bay Park HospitalRadiology Study observation (narrative)[facility] 3 VIEWS Ordered By: Radiologist Radiology on [id number] [facility] Hospital Work Phone: XR Knee - left 3 Viewson [id number] By: Rodney Lamb STUDY: XR KNEE LEFT 3 VIEWS; 11/28/2024 2:45 pm INDICATION: Signs/Symptoms:pain. ACCESSION NUMBER(S): [id number] ORDERING CLINICIAN: RODNEY LAMB FINDINGS: Left knee three views. Status post total knee replacement slight posterior slip subluxation of the femur on the tibia on the lateral x-ray which is a change from previous x-ray no evidence of fracture dislocation or other bony abnormality Signed by: Rodney Lamb 11/28/2024 3:31 PM Dictation workstation: [id number] Rodney Ashby MD - 11/28/2024 Interpreted By: Rodney Lamb STUDY: XR KNEE LEFT 3 VIEWS; 11/28/2024 2:45 pm INDICATION: Signs/Symptoms:pain. ACCESSION NUMBER(S): [id number] ORDERING CLINICIAN: RODNEY LAMB FINDINGS: Left knee three views. Status post total knee replacement slight posterior slip subluxation of the femur on the tibia on the lateral x-ray which is a change from previous x-ray no evidence of fracture dislocation or other bony abnormality Signed by: Rodney Lamb 11/28/2024 3:31 PM Dictation workstation: [id number] [facility] Work Phone: [facility] Work Phone: Radiology Study observation (narrative)[facility] Work Phone: CNOVon [phone] Visit (PAMAVN) CATY HILLS ([id number]) 1960 F Date Time Provider Department 11/27/24 11:00 AM JOSH MCGOWAN During your visit today, we recorded the following information about you: Pulse Blood pressure Weight 57/minute 129/71 103.7 kg Josh Mcgowan MD 11/30/2024 2:43 PM Signed Ms. Hills is here today at the request of Chris No for my opinion regarding neck pain My final recommendation will be communicated back to the requesting physician by way of shared medical record or letter. The patient is a 64-year-old female with rheumatoid arthritis and tachycardia with a loop recorder, presenting for evaluation and management of chronic neck and low back pain. Patient reports the date of onset of symptoms as 1 year and describes the location of the pain as posterior neck. The pain is chronic, radiating, and rated as 7, radiates up head. Patient reports that neck pain is increased by pain is constant and relieved by prednisone. HPI: Neck Pain: - Onset last year. - Pain radiates down through shoulders, worse on the left side. - Tolerable in the morning, worsens throughout the day, leading to severe headaches by evening. - Pain is bilateral but more pronounced on the left side. - Recent MRI of the neck performed by Dr. No. - Caty is taking Prednisone 5 mg PRN for relief; prescribed by Dr. No. - Denies any issues with neck positions or range of motion. Low Back Pain: - Chronic, intermittent pain for years; worsens during flare-ups with inflammation. - Caty underwent spinal fusion surgery with a cage and three screws in [place] by Dr. Marcelo approximately 10-15 years ago; provided some pain relief. - Fractured lower back 2 years ago after a fall on the front porch; treated by Dr. Jerry Johnson with cement injection. - Experiences numbness and muscle spasms in the left leg, especially at night. - Pain radiates from the knee down to the hip on the left side. - Pain is alleviated by standing and walking; worsens with prolonged sitting. - Uses specific stretches and exercises for relief. - Denies recent physical therapy or chiropractic treatment. - No recent imaging of the lower back. Rheumatoid Arthritis: - Managed by Dr. No. - Caty is taking Rinvoq for several years; previously tried other biologics but found Rinvoq most tolerable. Tachycardia: - Caty has a loop recorder implanted. - Underwent an electrophysiology study in [place], which was inconclusive. OTHER BACK PAIN SYMPTOMS: NIGHT PAIN: No PARESTHESIA: No POOR SLEEP: yes ACTIVITY LIMITATIONS: ADLs PREVIOUS TREATMENTS: None . OCCUPATIONAL HISTORY: [employer] HISTORY OF TRAUMA/OVERUSE OF AREA: No REVIEW OF SYSTEMS: GENERAL: Negative for malaise, significant weight loss and fever MEDICAL HISTORY: HTN,RA PAST MEDICAL HISTORY Diagnosis Date Anxiety Class 2 obesity in adult Heart palpitations Hypertension Hypokalemia NONE Rheumatoid arthritis (HCC) Seizure-like activity (HCC) SVT (supraventricular tachycardia) (HCC) SVT (supraventricular tachycardia) (HCC) 04/18/2024 Traumatic brain injury (HCC) slipped on ice and hit head on concrete and passed out for 2 min in 2009 PAST SURGICAL HISTORY Procedure Laterality Date ANESTHESIA VAGINAL HYSTERECTOMY INCL BIOPSY 1996 ENDOMETRIOSIS, PAIN , CYSTS BACK SURGERY HX 2014 spinal fusion with screws CARPAL TUNNEL RIGHT WRIST 1996 RIGHT AND LEFT WRIST CONIZATION CERVIX W/WO DANDC RPR KNIFE/LASER 1994 DYSPLASIA DILATION AND CURETTAGE DXAND/THER NONOBSTETRIC Dilation AND curettage DILATION AND CURETTAGE DXAND/THER NONOBSTETRIC Dilation AND curettage KNEE SURGERY HX PAST SURGICAL HISTORY OF 1978 REMOVAL OF BENIGN CYST RIGHT NECK EXAMINATION: [id number]: Scoliosis: No Pelvic Tilt: No LATERAL: Cervical Lordosis: No Thoracic Kyphosis: No Lumbar Lordosis: No RANGE OF MOTION CERVICAL: Flexion: Not Limited Extension: Limited Rotation L: Not Limited Rotation R: Not Limited Foraminal Compresssion Maneuvers: Negative Spurling's test: Negative Gait: Normal Toe Walking: Normal Heel Walking: Normal REFLEXES R L Biceps (C6): 1-2+ 1-2+ Triceps (C7): 1-2+ 1-2+ Brachioradiolis (C6): 1-2+ 1-2+ Ankle (S1): 2+ 2+ Knee (L4): 2+ 2+ STRENGTH (0-5): R L Deltoid (AB:C5,6): 5 5 Biceps (Flex:C5,6): 5 5 Wrist Ext.(C6,7): 5 5 Interrosei (C8,T1): 5 5 PSOAS (L2,3): 5 5 Gluteus (L5,S1,2): 5 5 Quadriceps (L3,4): 5 5 EHL (L5): 5 5 Soleus (S1): 5 5 Tinel's - Carpal Tunnel: Negative Tinel's - Cubital Tunnel: Negative Phalen's Test: Negative Elbow Flexion Test: Negative SLR: Seated - Right Negative, Left Negative Babinski Negative Negative Gan's sign: Negative FEDERICO TEST 1) Tenderness: Appropriate 2) Simulation/Axial Loading/ROT (more content not included)...[facility] Panel InformationOrdered By: Radiologist Radiology on [id number] Memorial Hospital Work Phone: [facility] Work Phone: no Panel Informationon [id number] Study observation (narrative)[facility] HospitalRad[facility] observation (narrative) [facility] HealthcareXR CERVICAL 3V AP/LAT/ODONon 11-27-2024* * *Final Report* * * DATE OF EXAM: Nov 27 2024 1:07PM VHX 5309 - XR CERVICAL 3V AP/LAT/ODON / PROCEDURE REASON: multiple diagnoses * * * * Physician Interpretation * * * * EXAMINATION / TECHNIQUE: XR CERVICAL 3V AP/LAT/ODON HISTORY: BACK PAIN Facet arthropathy, cervical Recurrent occipital headache COMPARISON: MRI cervical spine dated 09/18/2024. RESULT: Counting reference: Craniocervical junction. Anatomic Variants: None. Vertebral body heights are maintained. There is mild anterolisthesis C3 on C4. Mild C3-C4 and mild to moderate C5-C6 and C6-C7 degenerative disc disease. Prevertebral soft tissues are normal. IMPRESSION: Degenerative changes as described. 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: [employer] Transcribe Date/Time: Nov 27 2024 7:38P Dictated by : JAMSHID WEBSTER MD This examination was interpreted and the report reviewed and electronically signed by: JAMSHID WEBSTER MD on Nov 27 2024 7:38PM EST [id number]^AGFA_IDC^SI^ACNCCFRadiology, Radiologist, MD - 11/27/2024 * * *Final Report* * * DATE OF EXAM: Nov 27 2024 1:07PM VHX 5309 - XR CERVICAL 3V AP/LAT/ODON / PROCEDURE REASON: multiple diagnoses * * * * Physician Interpretation * * * * EXAMINATION / TECHNIQUE: XR CERVICAL 3V AP/LAT/ODON HISTORY: BACK PAIN Facet arthropathy, cervical Recurrent occipital headache COMPARISON: MRI cervical spine dated 09/18/2024. RESULT: Counting reference: Craniocervical junction. Anatomic Variants: None. Vertebral body heights are maintained. There is mild anterolisthesis C3 on C4. Mild C3-C4 and mild to moderate C5-C6 and C6-C7 degenerative disc disease. Prevertebral soft tissues are normal. IMPRESSION: Degenerative changes as described. 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: [employer] Transcribe Date/Time: Nov 27 2024 7:38P Dictated by : JAMSHID WEBSTER MD This examination was interpreted and the report reviewed and electronically signed by: JAMSHID WEBSTER MD on Nov 27 2024 7:38PM EST [id number]^AGFA_IDC^SI^ACN [facility] CERVICAL 3V AP/LAT/ODON* * *Final Report* * * DATE OF EXAM: Nov 27 2024 1:07PM VHX 5309 - XR CERVICAL 3V AP/LAT/ODON / PROCEDURE REASON: multiple diagnoses * * * * Physician Interpretation * * * * EXAMINATION / TECHNIQUE: XR CERVICAL 3V AP/LAT/ODON HISTORY: BACK PAIN Facet arthropathy, cervical Recurrent occipital headache COMPARISON: MRI cervical spine dated 09/18/2024. RESULT: Counting reference: Craniocervical junction. Anatomic Variants: None. Vertebral body heights are maintained. There is mild anterolisthesis C3 on C4. Mild C3-C4 and mild to moderate C5-C6 and C6-C7 degenerative disc disease. Prevertebral soft tissues are normal. IMPRESSION: Degenerative changes as described. 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: [facility] Transcribe Date/Time: Nov 27 2024 7:38P Dictated by : JAMSHID WEBSTER MD This examination was interpreted and the report reviewed and electronically signed by: JAMSHID WEBSTER MD on Nov 27 2024 7:38PM EST [facility]* * *Final Report* * * DATE OF EXAM: Nov 27 2024 1:07PM VHX 5309 - XR CERVICAL 3V AP/LAT/ODON / PROCEDURE REASON: multiple diagnoses * * * * Physician Interpretation * * * * EXAMINATION / TECHNIQUE: XR CERVICAL 3V AP/LAT/ODON HISTORY: BACK PAIN Facet arthropathy, cervical Recurrent occipital headache COMPARISON: MRI cervical spine dated 09/18/2024. RESULT: Counting reference: Craniocervical junction. Anatomic Variants: None. Vertebral body heights are maintained. There is mild anterolisthesis C3 on C4. Mild C3-C4 and mild to moderate C5-C6 and C6-C7 degenerative disc disease. Prevertebral soft tissues are normal. [facility] RADIOLOGYProvider, [facility] [place] - 11/27/2024 * * *Final Report* * * DATE OF EXAM: Nov 27 2024 1:07PM VHX 5309 - XR CERVICAL 3V AP/LAT/ODON / PROCEDURE REASON: multiple diagnoses * * * * Physician Interpretation * * * * EXAMINATION / TECHNIQUE: XR CERVICAL 3V AP/LAT/ODON HISTORY: BACK PAIN Facet arthropathy, cervical Recurrent occipital headache COMPARISON: MRI cervical spine dated 09/18/2024. RESULT: Counting reference: Craniocervical junction. Anatomic Variants: None. Vertebral body heights are maintained. There is mild anterolisthesis C3 on C4. Mild C3-C4 and mild to moderate C5-C6 and C6-C7 degenerative disc disease. Prevertebral soft tissues are normal. IMPRESSION IMPRESSION: Degenerative changes as described. 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: [facility] Transcribe Date/Time: Nov 27 2024 7:38P Dictated by : JAMSHID WEBSTER MD This examination was interpreted and the report reviewed and electronically signed by: JAMSHID WEBSTER MD on Nov 27 2024 7:38PM [facility]XR LUMBAR 3V AP/LAT/L5-S1on 11-27-2024* * *Final Report* * * DATE OF EXAM: Nov 27 2024 1:07PM VHX 5228 - XR LUMBAR 3V AP/LAT/L5-S1 / PROCEDURE REASON: multiple diagnoses * * * * Physician Interpretation * * * * EXAMINATION / TECHNIQUE: XR LUMBAR 3V AP/LAT/L5-S1 HISTORY: BACK PAIN History of lumbar fusion Radiculitis, lumbosacral COMPARISON: None RESULT: Counting reference: Lumbosacral junction. For the purposes of this report, L4-5 is considered the level of the iliac crest and assume there are 5 lumbar-type vertebrae. Anatomic variant: None. Status post L5-S1 fusion with intact hardware. Mild to moderate L3 superior endplate compression fractures status post vertebral body cement position. Remaining vertebral body heights are preserved. There is grade 1 anterolisthesis L4 on L5. There is minimal retrolisthesis L1 on L2. Moderate to severe L4-L5 degenerative disc disease. IMPRESSION: Postoperative and degenerative changes as described. 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: [facility] Transcribe Date/Time: Nov 27 2024 7:39P Dictated by : JAMSHID WEBSTER MD This examination was interpreted and the report reviewed and electronically signed by: JAMSHID WEBSTER MD on Nov 27 2024 7:40PM EST [id number]^AGFA_IDC^SI^ACNCCFRadiology, RadiologistMD - 11/27/2024 * * *Final Report* * * DATE OF EXAM: Nov 27 2024 1:07PM VHX 5228 - XR LUMBAR 3V AP/LAT/L5-S1 / PROCEDURE REASON: multiple diagnoses * * * * Physician Interpretation * * * * EXAMINATION / TECHNIQUE: XR LUMBAR 3V AP/LAT/L5-S1 HISTORY: BACK PAIN History of lumbar fusion Radiculitis, lumbosacral COMPARISON: None RESULT: Counting reference: Lumbosacral junction. For the purposes of this report, L4-5 is considered the level of the iliac crest and assume there are 5 lumbar-type vertebrae. Anatomic variant: None. Status post L5-S1 fusion with intact hardware. Mild to moderate L3 superior endplate compression fractures status post vertebral body cement position. Remaining vertebral body heights are preserved. There is grade 1 anterolisthesis L4 on L5. There is minimal retrolisthesis L1 on L2. Moderate to severe L4-L5 degenerative disc disease. IMPRESSION: Postoperative and degenerative changes as described. 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: [employer] Transcribe Date/Time: Nov 27 2024 7:39P Dictated by : JAMSHID WEBSTER MD This examination was interpreted and the report reviewed and electronically signed by: JAMSHID WEBSTER MD on Nov 27 2024 7:40PM EST [id number]^AGFA_IDC^SI^ACN [facility] LUMBAR 3V AP/LAT/L5-S1* * *Final Report* * * DATE OF EXAM: Nov 27 2024 1:07PM VHX 5228 - XR LUMBAR 3V AP/LAT/L5-S1 / PROCEDURE REASON: multiple diagnoses * * * * Physician Interpretation * * * * EXAMINATION / TECHNIQUE: XR LUMBAR 3V AP/LAT/L5-S1 HISTORY: BACK PAIN History of lumbar fusion Radiculitis, lumbosacral COMPARISON: None RESULT: Counting reference: Lumbosacral junction. For the purposes of this report, L4-5 is considered the level of the iliac crest and assume there are 5 lumbar-type vertebrae. Anatomic variant: None. Status post L5-S1 fusion with intact hardware. Mild to moderate L3 superior endplate compression fractures status post vertebral body cement position. Remaining vertebral body heights are preserved. There is grade 1 anterolisthesis L4 on L5. There is minimal retrolisthesis L1 on L2. Moderate to severe L4-L5 degenerative disc disease. IMPRESSION: Postoperative and degenerative changes as described. 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: [employer] Transcribe Date/Time: Nov 27 2024 7:39P Dictated by : JAMSHID WEBSTER MD This examination was interpreted and the report reviewed and electronically signed by: JAMSHID WEBSTER MD on Nov 27 2024 7:40PM EST [facility]* * *Final Report* * * DATE OF EXAM: Nov 27 2024 1:07PM VHX 5228 - XR LUMBAR 3V AP/LAT/L5-S1 / PROCEDURE REASON: multiple diagnoses * * * * Physician Interpretation * * * * EXAMINATION / TECHNIQUE: XR LUMBAR 3V AP/LAT/L5-S1 HISTORY: BACK PAIN History of lumbar fusion Radiculitis, lumbosacral COMPARISON: None RESULT: Counting reference: Lumbosacral junction. For the purposes of this report, L4-5 is considered the level of the iliac crest and assume there are 5 lumbar-type vertebrae. Anatomic variant: None. Status post L5-S1 fusion with intact hardware. Mild to moderate L3 superior endplate compression fractures status post vertebral body cement position. Remaining vertebral body heights are preserved. There is grade 1 anterolisthesis L4 on L5. There is minimal retrolisthesis L1 on L2. Moderate to severe L4-L5 degenerative disc disease. [facility] RADIOLOGYProvider, [facility] [place] - 11/27/2024 * * *Final Report* * * DATE OF EXAM: Nov 27 2024 1:07PM VHX 5228 - XR LUMBAR 3V AP/LAT/L5-S1 / PROCEDURE REASON: multiple diagnoses * * * * Physician Interpretation * * * * EXAMINATION / TECHNIQUE: XR LUMBAR 3V AP/LAT/L5-S1 HISTORY: BACK PAIN History of lumbar fusion Radiculitis, lumbosacral COMPARISON: None RESULT: Counting reference: Lumbosacral junction. For the purposes of this report, L4-5 is considered the level of the iliac crest and assume there are 5 lumbar-type vertebrae. Anatomic variant: None. Status post L5-S1 fusion with intact hardware. Mild to moderate L3 superior endplate compression fractures status post vertebral body cement position. Remaining vertebral body heights are preserved. There is grade 1 anterolisthesis L4 on L5. There is minimal retrolisthesis L1 on L2. Moderate to severe L4-L5 degenerative disc disease. IMPRESSION IMPRESSION: Postoperative and degenerative changes as described. 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: [employer] Transcribe Date/Time: Nov 27 2024 7:39P Dictated by : JAMSHID WEBSTER MD This examination was interpreted and the report reviewed and electronically signed by: JAMSHID WEBSTER MD on Nov 27 2024 7:40PM [facility]woodsOrders Onlyon [id number] Caty Hills 1960 F Date Provider Department Center 11/08/2024 [facility] Family History Problem Relation Age of Onset Atrial fibrillation Mother Heart attack Mother Valvular heart disease Father Valvular heart disease Sister Atrial fibrillation Maternal Grandmother Family Status - Relation Status Age at Mother Father Alive Sister Alive Brother Alive Maternal GrandmotherNFairfield [facility] CNPNTelephone (PAMAVN) CATY HILLS ([id number]) 1960 F Date Time Provider Department 09/28/24 JOSH MCGOWAN During your visit today, we recorded the following information about you: Allergies As of Date: 09/28/2024 Noted Allergy Reaction XELJANZ (TOFACITINIB) 03/08/2024 6 - Diarrhea Date Reviewed: 09/10/2024 Reviewed by: Samantha Moctezuma LPN - Fully Assessed Reason for Visit: Appointment [186] Cmt: questionnaire Prescriptions as of 09/28/2024 - albuterol HFA (PROVENTIL HFA, VENTOLIN HFA) 90 mcg/actuation inhaler - aspirin, enteric coated (ASPIRIN, ENTERIC COATED) 81 mg EC tablet Take by mouth. - celecoxib (CELEBREX) 200 mg capsule Celecoxib 200 mg capsule Active 200 MG PO .as needed as needed for pain April 25, 2024 1:00am [employer] capsule with food Orally Once a day as needed; Note: Source Status: Taking; Provider: Rafi Goodman ( ) - Cholecalciferol, Vitamin D3, 25 mcg (1,000 unit) cap Cholecalciferol (Vitamin D3) (Vitamin D3) 1,000 unit Capsule Active 1 CAP PO Daily March 15, 2017 1:00am - cyclobenzaprine (FLEXERIL) 10 mg tablet Take 10 mg by mouth. - Docusate Sodium 100 mg tab Take 100 mg by mouth. - ergocalciferol 50,000 unit capsule (VITAMIN D2, DRISDOL) Take 1.25 mg by mouth. - fluticasone (FLONASE) 50 mcg/actuation nasal spray 1 spray. - gabapentin (NEURONTIN) 300 mg capsule Take by mouth. - ibuprofen (MOTRIN) 200 mg tablet Take by mouth as directed. - lactobacillus rhamnosus (CULTURELLE) 10 billion cell capsule Lactobacillus Rhamnosus Gg (Culturelle) 10 billion cell capsule Active 1 CAP PO Daily April 25, 2024 1:00am - leflunomide (ARAVA) 10 mg tablet Take 10 mg by mouth. - meclizine (ANTIVERT) 25 mg tab Take by mouth. - metoprolol succinate ER (TOPROL XL) 50 mg 24 hr tablet Take 25 mg by mouth. - mirabegron (MYRBETRIQ) 50 mg Tb24 Take 50 mg by mouth. - nirmatrelvir and ritonavir (PAXLOVID) 300 mg (150 mg x 2)-100 mg tablets in a dose pack Take by mouth. - ondansetron orally disintegrating (ZOFRAN ODT) 4 mg disintegrating tablet Take 4 mg by mouth three times a day as needed. - oxybutynin ER (DITROPAN XL) 10 mg 24 hr tablet Oxybutynin Chloride 10 mg tablet extended release 24hr Active 10 MG PO Daily April 25, 2024 1:00am - plecanatide (TRULANCE) 3 mg tablet Take 3 mg by mouth. - potassium chloride 20 mEq TbER Potassium Chloride 20 mEq tablet extended release Active 20 MEQ PO Daily April 25, 2024 1:00am - pregabalin (LYRICA) 50 mg capsule Take 50 mg by mouth three times a day. - senna-docusate (SENNA-S) 8.6-50 mg per tablet Take by mouth. - sucralfate (CARAFATE) 1 gram tablet Take by mouth every 12 hours. - tiZANidine (ZANAFLEX) 2 mg tablet Take by mouth. - valACYclovir (VALTREX) 1 gram tablet Take 1,000 mg by mouth. - valsartan (DIOVAN) 80 mg tablet Take 80 mg by mouth. - valsartan (DIOVAN) 160 mg tablet Valsartan 160 mg tablet Active 160 MG PO Daily June 03, 2023 1:00am - upadacitinib tablet ER 24 hr 15 mg (RINVOQ) Take 1 tablet by mouth once daily. - predniSONE (DELTASONE) 5 mg tablet TAKE UP TO TAKE THREE TABLETS BY MOUTH DAILY NEEDED - atogepant (QULIPTA) 60 mg tablet Take 60 mg by mouth once daily. - hydrOXYchloroQUINE (PLAQUENIL) 200 mg tablet Take two tabs by mouth daily - meloxicam (MOBIC) 15 mg tablet take 1 tablet by mouth daily - metoprolol tartrate, short acting, (LOPRESSOR) 50 mg tablet Take 25 mg by mouth twice daily. - multivitamin tablet Take 1 tablet by mouth once daily. - ascorbic acid, vitamin C, (VITAMIN C) 500 mg tablet Take 1 tablet by mouth two times a day with meals. - Valsartan-hydroCHLOROthiazide 160-25 mg per tablet Take 1 tablet by mouth once daily. - escitalopram oxalate (LEXAPRO) 20 mg tablet Take 20 mg by mouth daily at bedtime. - QUEtiapine (SEROQUEL) 25 mg tablet Take 25 mg by mouth at bedtime as needed. Take 1-2 tabs as needed for sleep - Bdqieaanvomgk-Mrxexhhv-Yhkkat (MULTIVITAMIN 50 PLUS) tab Take 1 tablet by mouth once daily. - pantoprazole DR (PROTONIX) 40 mg tablet Take 40 mg by mouth once daily. 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] 01/30/2020 Peroneal tendinitis of left lower extremity [M7*01/30/2020 Generalized epilepsy (HCC) [G40.309] 01/17/2021 01/21/2021 Obesity (BMI 30-39.9) [E66.9] Hypertension [I10] Heart palpitations [R00.2] Hypokalemia [E87.6] H/O iritis [Z86.69] 04/06/2022 Abdominal bloating [R14.0] 09/28/2024 Bulging lumbar disc [M51.369] 09/28/2024 Ca (more content not included)...Normal[facility] THYROID PEROXIDASE ANTIBODY BLOODon [id number] THYROPEROXIDASE AB SERPL-ACNC<3.0NINF [facility] HealthcareComment on above:Thyroid Peroxidase Antibody test is used as an aid in diagnosis of autoimmune thyroid disease. Clinical correlation is required.Specimen Type: BLOOD SPECIMEN Ordering Facility: [facility] Address: [address] [id number] Original Ordering Provider: KEYSHAWN NAGELEllett Memorial HospitalGlucose p fast [facility] [id number] post fast [Mass/Vol]92 mg/kHPliuts63-75RoqzamxbrChillicothe Va Medical CenterComment on above:Order Comment: Specimen Type: BLOOD SPECIMEN Ordering Facility: [facility] Address: [address] [place], [place] [id number] Comment: [place] [employer] guidelines state that a diabetes mellitus diagnosis is preliminarily made when the fasting plasma glucose meets or exceeds 126 mg/dL. In the absence of unequivocal hyperglycemia, results should be confirmed with repeat testing. Patients are at increasedrisk for diabetes mellitus (prediabetes) when the fasting glucose is 100 to 125 mg/dL.Performed By: #### 1558-6 #### [facility] CLIA [id number] [address] [place] [address] [place] AMERICAInsulin SerPl-aCncon [id number] Qn16.2 uU/mLNormal2.6-24.9CDiley Ridge Medical Center on above:Order Comment: Specimen Type: BLOOD SPECIMEN Ordering Facility: [facility] Address: [address] [place], [place] [address]Result Comment: Reference intervals established for fasting specimens.Performed By: #### 1558-6 #### [facility] [place] [id number] [address] [place] [address] [place] [facility] HOSPITALSJOGREN ABS SSA/SSBon [id number]-SSB QUALNegativeNormalNegativeMercy Health – [facility] on above:Order Comment: Specimen Type: BLOOD SPECIMEN Ordering Facility: [facility] Address: [address] [place], [place] [address]Result Comment: Anti-SSB (anti-La) antibody is used as an aid in diagnosis of a variety of systemicautoimmune diseases, especially for Sjogren's syndrome and systemic lupus erythematosus. Clinical correlation is required. Test Methodology: Multiplex flow immunoassay.Performed By: #### XSSAB #### [facility] [place] [id number] [address] [place] [address] [place] AMERICASjogrens syndrome-A extractable nuclear Ab Qn (S)<0.2Normal<1.0[facility] on above:Order Comment: Specimen Type: BLOOD SPECIMEN Ordering Facility: [facility] Address: [address] [place], [place] [address]Performed By: #### XSSAB #### [facility] [place] [id number] [address]ETSjogrens syndrome-B extractable nuclear Ab Qn (S)<0.2Normal<1.0[facility] on above:Order Comment: Specimen Type: BLOOD SPECIMEN Ordering Facility: [facility] Address: [address] [place], [place] [address]Performed By: #### XSSAB #### [facility] CLIA [id number] [address] [place], [place] [address]SSA ANTIBODY QUALNegative NormalNegativeMercy Health – [facility] on above:Order Comment: Specimen Type: BLOOD SPECIMEN Ordering Facility: [facility] Address: [address] [place], [place] [address]Result Comment: Anti-SSA (anti-Ro) antibody is used as an aid in diagnosis of a variety of systemicautoimmune diseases, Sjogren's syndrome among others. Clinical correlation is required. Test Methodology: Multiplex flow immunoassay. ??? \X09\Performed By: #### XSSAB #### [facility] CLIA [id number] [address] [place], [place] [address]THYROID PEROXIDASE ANTIBODY on [id number] Ab Qn[IU]/mLNormal<5.6CDiley Ridge Medical Center on above:Order Comment: Specimen Type: BLOOD SPECIMEN Ordering Facility: [facility] Address: [address] [place], [place] [address]Result Comment: Thyroid Peroxidase Antibody test is used as an aid in diagnosis of autoimmune thyroid disease. Clinical correlation is required.Performed By: #### 1558-6 #### [facility] CLIA [id number] [address] [place] [address] OF KNO[facility] COMMUNITY HOSPITALCNOVon [id number] Visit (ENDOLN) CATY HILLS ([id number]) 1960 F Date Time Provider Department 09/24/24 11:50 AM KEYSHAWN ARELLANO During your visit today, we recorded the following information about you: Pulse Blood pressure Weight 67/minute 151/81 102.1 kg Keyshawn Arellano MD 09/24/2024 12:35 PM Signed This note was created using CompleteSetriter. Subjective Caty Hills is a 64-year-old female with a history of rheumatoid arthritis, presenting for evaluation of brain fog, weight gain, and dry mouth. She states that she wanted to be evaluated by endocrinology first to rule out thyroid and parathyroid issues. HPI Brain Fog: - Worsening brain fog and confusion over the past year. - Episodes of going blank during conversations, occurring at least three times in one day. - Describes episodes as the screen is wiped, requiring a keyword to regain focus. - Onset of symptoms approximately six months ago; previously attributed to aging. - Family history of thyroid issues and cancer. - Experiences tremors in hands and head shaking, as noted by . - Reports memory loss and exhaustion. Weight Gain: - Difficulty losing weight; never feels hungry, eats only to avoid headaches. - Family history of diabetes in mother and grandfather. - Reports fatigue after meals and consistently by 14:30-15:00 daily. - Taking Prednisone for rheumatoid arthritis flares, which Caty believes contributes to weight gain. Dry Mouth: - Uses a rinse to manage dry mouth. - Uncertain if real estate specialist is aware of the condition. - Reports spasms and cramps, primarily on the left side, waking Caty at night. - Noted swelling on one side of the body, which fluctuates in size; ultrasound showed no abnormalities. - Recently completed a course of vitamin D supplementation, mistakenly taken daily instead of weekly. - Takes B12 supplements approximately once a week. - Denies taking calcium or magnesium supplements. Review of Systems Eyes: Positive for visual disturbance. Cardiovascular: Positive for leg swelling. Gastrointestinal: Positive for constipation and diarrhea. Endocrine: Positive for heat intolerance and polydipsia. Genitourinary: Positive for urgency. Musculoskeletal: Positive for myalgias. Neurological: Positive for dizziness and headaches. Answers submitted by the patient for this visit: Endocrine Review of Systems (Submitted on 09/22/2024) Fatigue: Yes Night sweats: Yes Recent unintentional weight change: Yes Skin Color Changes: No Thyroid Pain (lower neck): Yes Trouble Swallowing: Yes Leg Pain while walking?: Yes Difficulty Breathing?: Yes Bone Pain?: Yes Muscle weakness: Yes Joint pain or stiffness: Yes Numbness?: Yes Increased Urination: Yes Slow or Small Urine Stream?: No Are your menstrual cycles regular?: No Are your menstrual cycles irregular?: No Have your menstrual cycles stopped?: Yes Flushing: Yes Change in Body Hair?: Yes Objective BP 151/81 Pulse 67 Wt 102.1 kg (225 lb) BMI 35.23 kg/m? Physical Exam Constitutional: Appearance: Normal appearance. Neck: Thyroid: No thyroid mass. Cardiovascular: Rate and Rhythm: Normal rate and regular rhythm. Pulmonary: Effort: Pulmonary effort is normal. Breath sounds: Normal breath sounds. Neurological: General: No focal deficit present. Mental Status: She is alert. Psychiatric: Mood and Affect: Mood normal. Assessment and Plan 1. Malaise and fatigue (R53.81) - Symptoms include brain fog, confusion, tremors, and exhaustion, with fatigue worsening after meals. - Family history of diabetes; potential insulin resistance considered. - Ordered fasting insulin and blood glucose levels to assess for insulin resistance. - Recommended vitamin B complex supplementation to support brain health and memory. - Advised to consider seeing a neurologist for baseline cognitive testing. Long standing history of RA on Rinvoq and Hydroxychloroquine. 2. Vitamin D deficiency (E55.9) - ? Family history of parathyroidal disease , she wants to get checked - she had vitamin D deficiency , she accidentally took weekly vitamin D daily. - Ordered follow-up vitamin D and parathyroid hormone levels in March to reassess status. - Educated on potential risks of hypervitaminosis D and its effects on calcium metabolism. 3. Abnormal weight gain (R63.5) - Difficulty losing weight; potential contributing factors include steroid use and possible insulin resistance. - Discussed dietary modifications to reduce inflammation and improve metabolic function. - Will reassess weight management strategies based on insulin resistance test results. Allergies As of Date: 09/24/2024 Noted Allergy Reaction XELJANZ (TOFACITINIB) 03/08/2024 6 - Diarrhea Date Reviewed: 09/10/2024 Reviewed by: Samantha Moctezuma LPN - (more content not included)...Normal [facility] Cervical spine WO contraston [id number]: Multilevel degenerative changes resulting in varying degrees of foraminal stenosis, most pronounced and moderate bilaterally at C3-C4, right greater than left, as well as moderate bilaterally at C5-C6 and C6-C7. No significant canal stenosis or evidence of spinal cord signal abnormality. Anatomic Variant: None. Assume 7 cervical vertebrae with counting from the craniocervical junction. 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 MQ: MRCSPWO_3 COMPARISON: Cervical spine MRI 08/25/2020 RESULT: Counting reference: Craniocervical junction. Anatomic Variants: None. Localizer images: No additional findings. Alignment: Degenerative anterolisthesis of C3 on C4 measuring approximately 6 mm. Slight reversal of the normal cervical lordosis centered at C4. Craniocervical junction: Craniocervical junction is normal. Cord: No evidence of spinal cord edema or myelomalacia. Bone marrow signal/fracture: No evidence of pathologic marrow infiltration. No evidence of prior fracture. Cervical soft tissues: The paraspinal soft tissues are within normal limits. C2-C3: Mild degenerative disc disease as well as moderate to advanced right and mild left degenerative facet disease resulting in mild right foraminal stenosis and no substantial canal stenosis. C3-C4: Moderate degenerative disc disease with 6 mm anterolisthesis of C3 on C4 with posterior disc bulge and disc uncovering, mild bilateral uncovertebral spurring, as well as advanced right and mild left degenerative facet disease resulting in mild canal stenosis as well as moderate right greater than left foraminal stenosis. C4-C5: Mild degenerative disc disease as well as moderate right and mild to moderate left degenerative facet disease and minimal uncovertebral spurring with no substantial canal or foraminal stenosis. C5-C6: Mild to moderate degenerative disc disease with bilateral uncovertebral spurring as well as moderate left and mild right degenerative facet disease resulting in moderate bilateral foraminal stenosis and no substantial canal stenosis. C6-C7: Moderate degenerative disc disease with small posterior disc osteophyte complex formation, bilateral uncovertebral spurring, and mild bilateral degenerative facet disease and ligamentum flavum thickening resulting in mild canal stenosis as well as moderate bilateral foraminal stenosis. C7-T1: Mild degenerative disc disease as well as mild to moderate bilateral degenerative facet disease with no substantial canal or foraminal stenosis. 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 MQ: MRCSPWO_3 COMPARISON: Cervical spine MRI 08/25/2020 RESULT: Counting reference: Craniocervical junction. Anatomic Variants: None. Localizer images: No additional findings. Alignment: Degenerative anterolisthesis of C3 on C4 measuring approximately 6 mm. Slight reversal of the normal cervical lordosis centered at C4. Craniocervical junction: Craniocervical junction is normal. Cord: No evidence of spinal cord edema or myelomalacia. Bone marrow signal/fracture: No evidence of pathologic marrow infiltration. No evidence of prior fracture. Cervical soft tissues: The paraspinal soft tissues are within normal limits. C2-C3: Mild degenerative disc disease as well as moderate to advanced right and mild left degenerative facet disease resulting in mild right foraminal stenosis and no substantial canal stenosis. C3-C4: Moderate degenerative disc disease with 6 mm anterolisthesis of C3 on C4 with posterior disc bulge and disc uncovering, mild bilateral uncovertebral spurring, as well as advanced right and mild left degenerative facet disease resulting in mild canal stenosis as well as moderate right greater than left foraminal stenosis. C4-C5: Mild degenerative disc disease as well as moderate right and mild to moderate left degenerative facet disease and minimal uncovertebral spurring with no substantial canal or foraminal stenosis. C5-C6: Mild to moderate degenerative disc disease with bilateral uncovertebral spurring as well as moderate left and mild right degenerative facet disease resulting in moderate bilateral foraminal stenosis and no substantial canal stenosis. C6-C7: Moderate degenerative disc disease with small posterior disc osteophyte complex formation, bilateral uncovertebral spurring, and mild bilateral degenerative facet disease and ligamentum flavum thickening resulting in mild canal stenosis as well as moderate bilateral foraminal stenosis. C7-T1: Mild degenerative disc disease as well as mild to moderate bilateral degenerative facet disease with no substantial canal or foraminal stenosis. IMPRESSION IMPRESSION: Multilevel degenerative changes resulting in varying degrees of foraminal stenosis, most pronounced and moderate bilaterally at C3-C4, right greater than left, as well as moderate bilaterally at C5-C6 and C6-C7. No significant canal stenosis or evidence of spinal cord signal abnormality. Anatomic Variant: None. Assume 7 cervical vertebrae with counting from the craniocervical junction. 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: PSCB Transcribe Date/Time: Sep 18 2024 8:09A Dictated by : VERNELL SY MD This examination was interpreted and the report reviewed and electronically signed by: VERNELL SY MD on Sep 18 2024 8:17AM EST [facility] HospitalRad[facility] Study observation (narrative)[facility] CERVICAL SPINE WO IVCONon 09-18-2024* * *Final Report* * * DATE OF EXAM: Sep 18 2024 7:44AM [facility] 0297 - MRI CERVICAL SPINE WO IVCON / PROCEDURE REASON: multiple diagnoses * * * * Physician Interpretation * * * * EXAMINATION: MRI CERVICAL SPINE WO SYLVAINON CLINICAL HISTORY: 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 MQ: MRCSPWO_3 COMPARISON: Cervical spine MRI 08/25/2020 RESULT: Counting reference: Craniocervical junction. Anatomic Variants: None. Localizer images: No additional findings. Alignment: Degenerative anterolisthesis of C3 on C4 measuring approximately 6 mm. Slight reversal of the normal cervical lordosis centered at C4. Craniocervical junction: Craniocervical junction is normal. Cord: No evidence of spinal cord edema or myelomalacia. Bone marrow signal/fracture: No evidence of pathologic marrow infiltration. No evidence of prior fracture. Cervical soft tissues: The paraspinal soft tissues are within normal limits. C2-C3: Mild degenerative disc disease as well as moderate to advanced right and mild left degenerative facet disease resulting in mild right foraminal stenosis and no substantial canal stenosis. C3-C4: Moderate degenerative disc disease with 6 mm anterolisthesis of C3 on C4 with posterior disc bulge and disc uncovering, mild bilateral uncovertebral spurring, as well as advanced right and mild left degenerative facet disease resulting in mild canal stenosis as well as moderate right greater than left foraminal stenosis. C4-C5: Mild degenerative disc disease as well as moderate right and mild to moderate left degenerative facet disease and minimal uncovertebral spurring with no substantial canal or foraminal stenosis. C5-C6: Mild to moderate degenerative disc disease with bilateral uncovertebral spurring as well as moderate left and mild right degenerative facet disease resulting in moderate bilateral foraminal stenosis and no substantial canal stenosis. C6-C7: Moderate degenerative disc disease with small posterior disc osteophyte complex formation, bilateral uncovertebral spurring, and mild bilateral degenerative facet disease and ligamentum flavum thickening resulting in mild canal stenosis as well as moderate bilateral foraminal stenosis. C7-T1: Mild degenerative disc disease as well as mild to moderate bilateral degenerative facet disease with no substantial canal or foraminal stenosis. IMPRESSION: Multilevel degenerative changes resulting in varying degrees of foraminal stenosis, most pronounced and moderate bilaterally at C3-C4, right greater than left, as well as moderate bilaterally at C5-C6 and C6-C7. No significant canal stenosis or evidence of spinal cord signal abnormality. Anatomic Variant: None. Assume 7 cervical vertebrae with counting from the craniocervical junction. 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 MQ: MRCSPWO_3 COMPARISON: Cervical spine MRI 08/25/2020 RESULT: Counting reference: Craniocervical junction. Anatomic Variants: None. Localizer images: No additional findings. Alignment: Degenerative anterolisthesis of C3 on C4 measuring approximately 6 mm. Slight reversal of the normal cervical lordosis centered at C4. Craniocervical junction: Craniocervical junction is normal. Cord: No evidence of spinal cord edema or myelomalacia. Bone marrow signal/fracture: No evidence of pathologic marrow infiltration. No evidence of prior fracture. Cervical soft tissues: The paraspinal soft tissues are within normal limits. C2-C3: Mild degenerative disc disease as well as moderate to advanced right and mild left degenerative facet disease resulting in mild right foraminal stenosis and no substantial canal stenosis. C3-C4: Moderate degenerative disc disease with 6 mm anterolisthesis of C3 on C4 with posterior disc bulge and disc uncovering, mild bilateral uncovertebral spurring, as well as advanced right and mild left degenerative facet disease resulting in mild canal stenosis as well as moderate right greater than left foraminal stenosis. C4-C5: Mild degenerative disc disease as well as moderate right and mild to moderate left degenerative facet disease and minimal uncovertebral spurring with no substantial canal or foraminal stenosis. C5-C6: Mild to moderate degenerative disc disease with bilateral uncovertebral spurring as well as moderate left and mild right degenerative facet disease resulting in moderate bilateral foraminal stenosis and no substantial canal stenosis. C6-C7: Moderate degenerative disc disease with small posterior disc osteophyte complex formation, bilateral uncovertebral spurring, and mild bilateral degenerative facet disease and ligamentum flavum thickening resulting in mild canal stenosis as well as moderate bilateral foraminal stenosis. C7-T1: Mild degenerative disc disease as well as mild to moderate bilateral degenerative facet disease with no substantial canal or foraminal stenosis. IMPRESSION: Multilevel degenerative changes resulting in varying degrees of foraminal stenosis, most pronounced and moderate bilaterally at C3-C4, right greater than left, as well as moderate bilaterally at C5-C6 and C6-C7. No significant canal stenosis or evidence of spinal cord signal abnormality. Anatomic Variant: None. Assume 7 cervical vertebrae with counting from the craniocervical junction. 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 MQ: [id number] COMPARISON: Cervical spine MRI 08/25/2020 RESULT: Counting reference: Craniocervical junction. Anatomic Variants: None. Localizer images: No additional findings. Alignment: Degenerative anterolisthesis of C3 on C4 measuring approximately 6 mm. Slight reversal of the normal cervical lordosis centered at C4. Craniocervical junction: Craniocervical junction is normal. Cord: No evidence of spinal cord edema or myelomalacia. Bone marrow signal/fracture: No evidence of pathologic marrow infiltration. No evidence of prior fracture. Cervical soft tissues: The paraspinal soft tissues are within normal limits. C2-C3: Mild degenerative disc disease as well as moderate to advanced right and mild left degenerative facet disease resulting in mild right foraminal stenosis and no substantial canal stenosis. C3-C4: Moderate degenerative disc disease with 6 mm anterolisthesis of C3 on C4 with posterior disc bulge and disc uncovering, mild bilateral uncovertebral spurring, as well as advanced right and mild left degenerative facet disease resulting in mild canal stenosis as well as moderate right greater than left foraminal stenosis. C4-C5: Mild degenerative disc disease as well as moderate right and mild to moderate left degenerative facet disease and minimal uncovertebral spurring with no substantial canal or foraminal stenosis. C5-C6: Mild to moderate degenerative disc disease with bilateral uncovertebral spurring as well as moderate left and mild right degenerative facet disease resulting in moderate bilateral foraminal stenosis and no substantial canal stenosis. C6-C7: Moderate degenerative disc disease with small posterior disc osteophyte complex formation, bilateral uncovertebral spurring, and mild bilateral degenerative facet disease and ligamentum flavum thickening resulting in mild canal stenosis as well as moderate bilateral foraminal stenosis. C7-T1: Mild degenerative disc disease as well as mild to moderate bilateral degenerative facet disease with no substantial canal or foraminal stenosis. IMPRESSION: Multilevel degenerative changes resulting in varying degrees of foraminal stenosis, most pronounced and moderate bilaterally at C3-C4, right greater than left, as well as moderate bilaterally at C5-C6 and C6-C7. No significant canal stenosis or evidence of spinal cord signal abnormality. Anatomic Variant: None. Assume 7 cervical vertebrae with counting from the craniocervical junction. 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 COMPARISON: Neck CT 09/05/2024 - Images only. TECHNIQUE: Two-dimensional grayscale ultrasound imaging of the left neck was performed. Color flow imaging was also performed. FINDINGS: There is a normal-appearing lymph node visualized within the left neck, measuring 0.5 cm in short axis diameter. No focal fluid collections are demonstrated. No sonographic abnormalities are otherwise detected. IMPRESSION: 1. Normal appearing lymph node visualized within the left neck, demonstrating a normal reniform shape and fatty hilum. No sonographic abnormalities are otherwise detected. Interpreted by: Electronically signed by YUNIEL TAYLOR II, MD, PHD at 12-Sep-2024 08:27:43 AM [facility] TeleradiologyNormalNot AvailableXR CHEST 2 VIEWSon [id number] CHEST 2 VIEWSExam: XR CHEST 2 VIEWS Reason for study: Shortness of breath Comparison: None FINDINGS: The heart is normal in size. There is no pulmonary edema or airspace infiltrate. The bony thorax isgrossly intact. Electronic device is seen in the anterior chest wall to the left of the midline. IMPRESSION: No acute cardiopulmonary process Dictated on: 09/11/2024 3:27 PM This report has been electronically signed and approved by the interpreting Radiologist.NormalNot AvailableCNOVon [id number] Visit (RHEUAVirginia) CATY HILLS ([id number]) 1960 F Date Time Provider Department 09/10/24 11:20 AM CHRIS NO During your visit today, we recorded the following information about you: Pulse Blood pressure Weight Height 60/minute 112/69 104.3 kg 1.702 m Chris No MD 09/10/2024 12:15 PM Signed [facility] Out[facility] Date of Service: 09/10/2024 Patient: Caty Hills Medical Record: [id number] Primary Care Physician: Anibal Juan DO, DO Last Rheumatology visit: 06/07/2024 (with Chris No) History of Present Illness Caty Hills is a 64 year old White female who presents on 09/10/2024 for an in-person visit for evaluation of Rheumatoid Arthritis. She is currently taking hydroxychloroquine sulfate, meloxicam, prednisone, upadacitinib. Her most recent CHERIE was negative (07/11/2020). HISTORY OF PRESENT ILLNESS This patient is known to me from my previous practice with [facility] with diagnosis of rheumatoid arthritis. This patient has been on DMARD therapy in the past with methotrexate and has not tolerated it well. She had been on a sequence of Biologics and when last seen in May 2021 was on Rinvoq 15 mg daily and doing well. Then in June 2021 that she developed a bout of iritis. She was being seen by a different real estate specialist with [facility] and switch her off of Rinvoq and placed her on Humira for the iritis. The patient has tolerated the Humira and it is improved her iritis. She has not needed to be on topical steroid treatment for her eyes in several months now. She does get some breakthrough discomfort in her eyes but no full-blown iritis. Where is a bigger problem is off of the Rinvoq she is had escalation of rheumatoid arthritis activity in her hands, wrists, shoulders, right knee and toes despite being on the Humira. Her other real estate specialist is even attempted to place methotrexate in combination with the Humira and this did not improve her rheumatoid arthritis and she felt ill on the methotrexate and has discontinued it. She was inquiring as to whether or not she would be allowed to go back onto the Rinvoq. Aside from the iritis she has not experienced any other extra-articular manifestations of rheumatoid arthritis. She shares with me that she had her right knee replaced 3 months ago and it is not doing as well as the left knee did from 2-1/2 years ago. The right knee remains quite swollen and painful and she believes the rheumatoid arthritis may be contributing to the right knee pain. INTERVAL HISTORY Patient returns for reevaluation and management of her rheumatoid arthritis. Since last visit patient continues Rinvoq 15 mg daily and resuming hydroxychloroquine at 200 mg daily along with meloxicam 15 mg daily. She felt some of her arthritis symptoms began to escalate off the hydroxychloroquine and started back at half dosage to see if this could improve her pain. Her right knee and ankle have been active with pain. She is also experiencing some left-sided pain with the left arm and the left leg but it seems to be emanating from the biggest issue which is her neck. In the past month she has been experiencing a fullness to her neck particularly on the left side. She states she feels like her lymph nodes are swelling it is quite uncomfortable particularly when she is laying on her right side there is this discomfort in the left neck. She experiences burning and tingling paresthesias in the left arm. The left leg can also give her degree of discomfort. She underwent CT scan of the neck recently which shows relatively stable soft tissues/lymph nodes/glands of the neck. There is comment that there is degenerative disc disease in the neck but it is not discrete enough to determine if there is any nerve involvement. She does have an ultrasound of the neck pending. She has a consultation with endocrinology upcoming. There are no new extra-articular manifestations of rheumatoid arthritis. Her general health has been unchanged from last visit. Rheum/Ortho Arthrocentesis Injections (last 5) 03/02/2023 12:44 Injection History Location thumb Thumb Site R thumb [facility] Patient-Entered Data PAIN EVALUATION 09/10/2024 1126 Pain Level: 6 Pain Location: Other: See Comment Level 6 pain in legs and neck with neck swelling PROMIS Assessments 07/31/2023 PROMIS Assessments Physical Health Percentile 10 Mental Health Percentile 26 Pain Score 3 Pain Interference Percentile 4 Fatigue Percentile 10 Physical Function Percentile 7 RAPID 3 [place] Activities of Daily Living 07/31/2023 3:09 PM Dress self? With SOME difficulty Get in and out of bed? With SOME difficulty Walk outdoors? With SOME difficulty Wash and dry body? Without ANY difficulty Get in and out of car? With SOME difficulty RAPID 3 Disease Ac (more content not included)...NormalChillicothe Va Medical CenterCNPNon [id number] (RHEUAV) CATY HILLS ([id number]) 1960 F Date Time Provider Department 09/03/24 CHRIS NO During your visit today, we recorded the following information about you: Marianela Mobley LPN 09/03/2024 5:45 PM Signed Lab results received from [facility], collected 08/31/2024. Copy sent to scanning, copy placed in Dr. No folder for review. Allergies As of Date: 09/03/2024 Noted Allergy Reaction XELJANZ (TOFACITINIB) 03/08/2024 6 - Diarrhea Date Reviewed: 03/08/2024 Reviewed by: Lizzette Martell MA - Fully Assessed Reason for Visit: Results [95] Prescriptions as of 09/03/2024 - upadacitinib tablet ER 24 hr 15 mg (RINVOQ) Take 1 tablet by mouth once daily. - predniSONE (DELTASONE) 5 mg tablet TAKE UP TO TAKE THREE TABLETS BY MOUTH DAILY NEEDED - atogepant (QULIPTA) 60 mg tablet Take 60 mg by mouth once daily. - hydrOXYchloroQUINE (PLAQUENIL) 200 mg tablet Take two tabs by mouth daily - meloxicam (MOBIC) 15 mg tablet take 1 tablet by mouth daily - metoprolol tartrate, short acting, (LOPRESSOR) 50 mg tablet Take 25 mg by mouth twice daily. - multivitamin tablet Take 1 tablet by mouth once daily. - ascorbic acid, vitamin C, (VITAMIN C) 500 mg tablet Take 1 tablet by mouth two times a day with meals. - Valsartan-hydroCHLOROthiazide 160-25 mg per tablet Take 1 tablet by mouth once daily. - escitalopram oxalate (LEXAPRO) 20 mg tablet Take 20 mg by mouth daily at bedtime. - QUEtiapine (SEROQUEL) 25 mg tablet Take 25 mg by mouth at bedtime as needed. Take 1-2 tabs as needed for sleep - Axfwknclwqvrj-Uuirhpmm-Prkewq (MULTIVITAMIN 50 PLUS) tab Take 1 tablet by mouth once daily. - pantoprazole DR (PROTONIX) 40 mg tablet Take 40 mg by mouth once daily. 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 SOFT TISSUE NECK W IV CONTRASTon [id number] SOFT TISSUE NECK W IV CONTRASTHISTORY: Left-sided neck lump/swelling for 2 months. Dysphagia. Dyspnea. COMPARISON: None TECHNIQUE: Series of contiguous helical scans from the skull base to the aortic arch following bolus injection of contrast. All CT scans at this facility use dose modulation, iterative reconstruction, and/or weight based dosing when appropriate to reduce radiation dose to as low as reasonably achievable. RESULT: Neck: Nasal cavity and oral cavity are unremarkable within limitations of artifact from dental amalgam. Pharyngeal mucosal space is normal in appearance. Vallecula and epiglottis are within normal limits and the pre-epiglottic fat is maintained. Parotid and submandibular glands are normal in appearance. Thyroid gland unremarkable. Carotid arteries and jugular veins are patent bilaterally. Remainder of fascial spaces of the neck and contents are unremarkable. No suspicious mass or lesion to correlate with the marker. Cervical Lymph Nodes: No lymphadenopathy by size criteria. Brain: Visualized intracranial contents are normal in appearance. Orbits are grossly normal. Visualized paranasal sinuses are clear and the mastoid air cells are well aerated bilaterally. Lung Apices: Imaged lung apices are clear. Infraglottic airway is patent. Loop recorder left chest wall. Bones: No acute osseous findings. Degenerative changes. IMPRESSION: No suspicious mass or lesion. No cervical lymphadenopathy. ELECTRONICALLY SIGNED BY: Radha Trejo AvailableCNPNon 08-15-2024 CNPNTelephone (No ChainsUAV) CATY HILLS ([id number]) 1960 F Date Time Provider Department 08/15/24 CHRIS NO During your visit today, we recorded the following information about you: HendersonAlexandra LPN 08/15/2024 4:17 PM Signed Prior authorization for Rinvoq initiated on Cover My Meds. Pending. Henderson, AlexandraCHICO 08/21/2024 9:01 AM Signed Rinvoq Outcome Approved on August 15 by [employer] 2017 [facility] Request Reference Number: [id number]. RINVOQ TAB 15MG ER is approved through 08/15/2025. Your patient may now fill this prescription and it will be covered. Effective Date: 08/15/2024 Authorization Expiration Date: 08/15/2025 Drug Rinvoq 15MG er tablets Allergies As of Date: 08/15/2024 Noted Allergy Reaction XELJANZ (TOFACITINIB) 03/08/2024 6 - Diarrhea Date Reviewed: 03/08/2024 Reviewed by: Lizzette Martell MA - Fully Assessed Reason for Visit: Insurance Authorization [[id number]] Cmt: Rinvoq Prescriptions as of 08/21/2024 - upadacitinib tablet ER 24 hr 15 mg (RINVOQ) Take 1 tablet by mouth once daily. - predniSONE (DELTASONE) 5 mg tablet TAKE UP TO TAKE THREE TABLETS BY MOUTH DAILY NEEDED - atogepant (QULIPTA) 60 mg tablet Take 60 mg by mouth once daily. - hydrOXYchloroQUINE (PLAQUENIL) 200 mg tablet Take two tabs by mouth daily - meloxicam (MOBIC) 15 mg tablet take 1 tablet by mouth daily - metoprolol tartrate, short acting, (LOPRESSOR) 50 mg tablet Take 25 mg by mouth twice daily. - multivitamin tablet Take 1 tablet by mouth once daily. - ascorbic acid, vitamin C, (VITAMIN C) 500 mg tablet Take 1 tablet by mouth two times a day with meals. - Valsartan-hydroCHLOROthiazide 160-25 mg per tablet Take 1 tablet by mouth once daily. - escitalopram oxalate (LEXAPRO) 20 mg tablet Take 20 mg by mouth daily at bedtime. - QUEtiapine (SEROQUEL) 25 mg tablet Take 25 mg by mouth at bedtime as needed. Take 1-2 tabs as needed for sleep - Adfokmlwggaaq-Uvhnusae-Tawogv (MULTIVITAMIN 50 PLUS) tab Take 1 tablet by mouth once daily. - pantoprazole DR (PROTONIX) 40 mg tablet Take 40 mg by mouth once daily. 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] 01/30/2020 Peroneal tendinitis of left lower extremity [M7*01/30/2020 Generalized epilepsy (HCC) [G40.309] 01/17/2021 01/21/2021 Obesity (BMI 30-39.9) [E66.9] Hypertension [I10] Heart palpitations [R00.2] Hypokalemia [E87.6] H/O iritis [Z86.69] 04/06/2022 Encounter Status:Closed by ALEXANDRA HENDERSON on 08/15/24[facility] [id number] Caty Hills 1960 F Date Provider Department Center 08/10/2024 325-[facility] HeartVAS Family History Problem Relation Age of Onset Atrial fibrillation Mother Heart attack Mother Valvular heart disease Father Valvular heart disease Sister Atrial fibrillation Maternal Grandmother Family Status - Relation Status Age at Mother Father Alive Sister Alive Brother Alive Maternal GrandmotherNFairfield Medical CenterLon 08-03-2024L Specimen: [id number] Received: 08/03/24 Status: [place] Andrew Num: [id number] Spec Type: Surgical Subm Dr: Rashaad Aaron MD Tissues: A Duodenum - Biopsy (DUODENAL BX) B Gastric Biopsy (GASTRIC BX) C Esophagus Biopsy (DISTAL ESOPHAGUS BX) D Esophagus Biopsy (PROXIMAL ESOPHAGUS BX) Procedures: HE/8, Gross/Micro L4/4, H PYLORI Age/ Patient Sex Location Account Attending Physician Caty Hills 64/F [id number] Rashaad Aaron MD SPEC NUM: [id number] RECD: 08/03/24 STATUS: [place] ANDREW NUM: [id number] ESTHELA: 08/03/[address] [facility] [address]: Rashaad Aaron MD ENTERED: 08/03/[address]: SPEC TYPE: Surgical DEPT: S ENTERED BY: [id number] RECV BY: [id number] ORDERED: HE/8, Gross/Micro L4/4, H PYLORI ORDERED: HE/8, Gross/Micro L4/4, H PYLORI Pathological Diagnosis A. Duodenum (mucosal biopsies): Within normal limits No features of celiac disease or dysplasia seen B. Stomach (mucosal biopsies): Chronic gastritis, mild and inactive No Helicobacter pylori organisms, intestinal metaplasia, or dysplasia seen See microscopic description C. Esophagus, distal (mucosal biopsies): Esophageal squamous mucosa with mild reactive changes No active inflammation or features of eosinophilic esophagitis seen D. Esophagus, proximal (mucosal biopsies): Esophageal squamous mucosa with mild reactive changes No active inflammation or features of eosinophilic esophagitis seen Specimen: [id number] Received: 08/03/24 Status: [place] Ngjon Num: [id number] Spec Type: Surgical Subm Dr: Rashaad Aaron MD Tissues: A Duodenum - Biopsy (DUODENAL BX) B Gastric Biopsy (GASTRIC BX) C Esophagus Biopsy (DISTAL ESOPHAGUS BX) D Esophagus Biopsy (PROXIMAL ESOPHAGUS BX) Procedures: HE/8, Gross/Micro L4/4, H PYLORI Patient: Caty Hills Dhiraj [id number] (Continued) Specimen: [id number] Received: 08/03/24 (Continued) Signed (signature on file) Grupo Fregoso Jr., MD 08/06/24 1524 Specimen: [id number] Received: 08/03/24 Status: [place] Andrew Num: [id number] Spec Type: Surgical Subm Dr: aRshaad Aaron MD Tissues: A Duodenum - Biopsy (DUODENAL BX) B Gastric Biopsy (GASTRIC BX) C Esophagus Biopsy (DISTAL ESOPHAGUS BX) D Esophagus Biopsy (PROXIMAL ESOPHAGUS BX) Procedures: ASHLEY/Greer, Gross/Micro L4/4, H PYLORI Patient: Apoorva Hillsmary Hearn [id number] (Continued) Specimen: [id number] Received: 08/03/24 (Continued) Clinical Information Dysphagia GERD dyspepsia, Part A rule out celiac, Part B rule out H. pylori, Part C?Part D rule out eosinophilic esophagitis Gross Description Part A is received in formalin labeled with the patients name, date of , and duodenal BX's are 2 [place], focally erythematous, friable, 0.3 and 0.4 cm in greatest dimension tissue bits. The specimen is entirely submitted in a single cassette. (1, ns, [id number] A) JG Part B is received in formalin labeled with the patients name, date of , and gastric BX's are 2 [place], focally erythematous, friable, 0.2 and 0.5 cm in greatest dimension tissue bits. The specimen is entirely submitted in a single cassette. (1, ns, [id number] B) JG Part C is received in formalin labeled with the patients name, date of , and distal esophagus BX is a pale [place], focally erythematous, feathery, 0.2 cm in greatest dimension tissue bit. The specimen is entirely submitted in a single cassette. (1, ns, [id number] C) JG Part D is received in formalin labeled with the patients name, date of , and proximal esophagus BX's are 2 pale [place], focally erythematous, feathery, 0.2 and 0.4 cm in greatest dimension tissue bits. The specimen is entirely submitted in a single cassette. (1, ns, [id number] D) Microscopic Description B. Immunoperoxidase stain performed on formalin fixed and paraffin-embedded tissue sections (block B1) for Helicobacter pylori organisms is negative. The control stains appropriately. CPT Codes 32094 x 4, 80206 (more content not included)...NormalThe [facility] Physician GroupFollow-Upon [id number] Caty Hills 1960 F Date Provider Department Center 07/24/2024 Lesa-MICHELLE NÚÑEZ [facility]ie [facility] Family History Problem Relation Age of Onset Atrial fibrillation Mother Heart attack Mother Valvular heart disease Father Valvular heart disease Sister Atrial fibrillation Maternal Grandmother Family Status - Relation Status Age at Mother Father Alive Sister Alive Brother Alive Maternal Grandmother Level of Service:43094 PA OFFICE/OUTPATIENT ESTABLISHED LOW MDM 20 [facility] CenterCNOVon [id number] Visit (RHEUAV) CATY HILLS ([id number]) 1960 F Date Time Provider Department 06/07/24 11:40 AM CHRIS NO During your visit today, we recorded the following information about you: Pulse Respiration Blood pressure Weight 55/minute 18/minute 107/69 101.2 kg Height 1.702 m Chris No MD 06/07/2024 11:10 AM Signed Rheumatology Outpatient Clinic Date of Service: 06/07/2024 Patient: Caty Hills Medical Record: [id number] Primary Care Physician: Anibal Juan DO, DO Last Rheumatology visit: 03/08/2024 (with Crhis No) History of Present Illness Caty Hills is a 64 year old White female who presents on 06/07/2024 for an in-person visit for evaluation of Rheumatoid Arthritis (Caty Hills is a 64 year old Female who presents for a 3 Month Follow Up for Rheumatoid Arthritis. She states that she had flu and it caused her to have a flare up, she has been doing ok and the Renvoke appears to be working well with no side effects.). She is currently taking hydroxychloroquine sulfate, meloxicam, prednisone, upadacitinib. Her most recent CHERIE was negative (07/11/2020). HISTORY OF PRESENT ILLNESS This patient is known to me from my previous practice with [facility] with diagnosis of rheumatoid arthritis. This patient has been on DMARD therapy in the past with methotrexate and has not tolerated it well. She had been on a sequence of Biologics and when last seen in May 2021 was on Rinvoq 15 mg daily and doing well. Then in June 2021 that she developed a bout of iritis. She was being seen by a different real estate specialist with [facility] and switch her off of Rinvoq and placed her on Humira for the iritis. The patient has tolerated the Humira and it is improved her iritis. She has not needed to be on topical steroid treatment for her eyes in several months now. She does get some breakthrough discomfort in her eyes but no full-blown iritis. Where is a bigger problem is off of the Rinvoq she is had escalation of rheumatoid arthritis activity in her hands, wrists, shoulders, right knee and toes despite being on the Humira. Her other real estate specialist is even attempted to place methotrexate in combination with the Humira and this did not improve her rheumatoid arthritis and she felt ill on the methotrexate and has discontinued it. She was inquiring as to whether or not she would be allowed to go back onto the Rinvoq. Aside from the iritis she has not experienced any other extra-articular manifestations of rheumatoid arthritis. She shares with me that she had her right knee replaced 3 months ago and it is not doing as well as the left knee did from 2-1/2 years ago. The right knee remains quite swollen and painful and she believes the rheumatoid arthritis may be contributing to the right knee pain. INTERVAL HISTORY Patient returns for reevaluation and management of her rheumatoid arthritis. Since last visit patient has initiated Rinvoq along with hydroxychloroquine 400 mg daily and meloxicam 15 mg daily. She is tolerating the Rinvoq well. She feels she is doing well enough that she has held out the hydroxychloroquine for the past month and not experiencing any increased joint pain. In fact most of her joints are doing better than she can remember in some time now. She is also on a new antidepressant and she believes this is helping in terms of her disposition as well as some pain modulation. There are no new extra-articular manifestations of rheumatoid arthritis. Her general health has been unchanged from last visit. Rheum/Ortho Arthrocentesis Injections (last 5) 03/02/2023 12:44 Injection History Location thumb Thumb Site R thumb [facility] Patient-Entered Data PAIN EVALUATION No data found in the last 1 encounters. PROMIS Assessments 07/31/2023 PROMIS Assessments Physical Health Percentile 10 Mental Health Percentile 26 Pain Score 3 Pain Interference Percentile 4 Fatigue Percentile 10 Physical Function Percentile 7 RAPID 3 [place] Activities of Daily Living 07/31/2023 3:09 PM Dress self? With SOME difficulty Get in and out of bed? With SOME difficulty Walk outdoors? With SOME difficulty Wash and dry body? Without ANY difficulty Get in and out of car? With SOME difficulty RAPID 3 Disease Activity Weighed Score Levels: 0 - 1: Near Remission 1.3 - 2.0: Low Severity 2.3 - 4.0: Moderate Severity 4.3 - 10.0: High Severity 07/31/2023 RAPID-3 Weighed Score RAPID 3 Weighed Score 4.83 (High severity ) Review of Systems Review of Systems CONSTITUTION: Negative for: Weight loss or gain, Fever. Chills, Night sweats HEENT: Negative for: Nosebleeds, Mouth sores, Trouble swallowing, Dry mouth RESPIRATORY: Negative for: Cough, Shortness of breath, Pain with breathing, Coughing up blood GASTROINTESTINAL: Negative for: M (more content not included)...NormalClermont [facility] Hospital METABOLIC PANELon [id number] gap [Moles/Vol]13 mmol/L Normal7-20UnUC HealthComment on above:Performed By: #### [id number] ####[facility] (BEAKER)[address] [place], [place] [address]Gkvfaic [Mass/Vol]9.5 mg/dLNormal8.6-10.3UnUC HealthComment on above:Performed By: #### [id number] ####[facility] (BEAKER)[address], [place] [address]Avebmrwi [Moles/Vol]103 mmol/LOpavdu60-276UslmekncsqUC HealthComment on above:Performed By: #### [id number] ####[facility] (BEAKER)[address], [place] [address]KI9 [Moles/Vol]25 mmol/LNormal 21-31UnUC HealthComment on above:Performed By: #### [id number] ####[facility] (BEAKER)[address], [place] [address]Vjlutwfuyz [Mass/Vol]0.82 mg/dLNormal0.60-1.20UnUC HealthComment on above:Performed By: #### [id number] ####[facility] (BEAKER)[address], [place] [address]HWAQBWVKVU FILTRATION RATE ML/MIN/1.73 SQ M.YBGPNJFYW05.3 mL/min/1.73m*2Normal>60.0UnUC HealthComment on above: Result Comment: The [facility]???s estimated glomerular filtration rate (eGFR) will no longer include consideration of race in its calculation. The National Kidney Foundation???s eGFR Task Force developed new recommendations for the estimation of the glomerular filtration rate in the [place] They recommend immediate implementation of the new equation refit without the race variable in all laboratories because the calculation does not include race. In addition to not including race in the calculation and reporting, it included diversity in its development, and has acceptable performance characteristics and potential consequences that do not disproportionately affect anyone group of individuals.Performed By: #### [id number] ####[facility] ([facility])[address] [facility] [place] [address]Oslbnsn [Mass/Vol]87 mg/pHXazflf25-251IoagypekktUC HealthComment on above:Performed By: #### [id number] ####[facility] ([facility])[address] [facility] [address]Vqcbzixxd [Moles/Vol]4.2 mmol/LNormal3.5-5.1UnUC HealthComment on above:Performed By: #### [id number] ####[facility] ([facility])[address] [place] [address] Sodium [Moles/Vol]137 mmol/EHsxsof835-808NxweajbbryUC Health Comment on above:Performed By: #### [id number] ####[facility] ([facility])[address], [place] [address]Ciio nitrogen [Mass/Vol]22 mg/dLNormal7-25 [facility] HospitalComment on above:Performed By: #### [id number] ####[facility] ([facility])[address] [place], [place] [address]CGXG NITROGEN/CREATININE (MASS RATIO) IN SER/PLAS26.8NormalUniversHighland District HospitalComment on above:Performed By: #### [id number] ####[facility] ([facility])[address] [place], [place] [address]MOThy 87-61-2698Hqfsmsjhtjx distribution width (RBC) [Ratio]12.2 %Vizvsd12.5-15.0UnUC HealthComment on above:Performed By: #### [id number] ####[facility] ([facility])[address] [address]RGMIQKVNNKP MEAN CORPUSCULAR HEMOGLOBIN CONCENTRATION (G/DL) BY KBXKVSXDX80.6 g/kCQasjqe50.0-35.0UnUC HealthComment on above:Performed By: #### [id number] ####[facility] ([facility])[address] [place] [address]Vbvwbhtoth (Bld) [Volume fraction]41.1 %Bpgary45.0-48.0UnUC HealthComment on above:Performed By: #### [id number] ####[facility] ([facility])[address] [place] [address]Oudyprhfvg (Bld) [Mass/Vol]13.8 g/aZMvmexb08.0-15.0UnUC HealthComment on above:Performed By: #### [id number] ####[facility] ([facility])[address] [place] [address]EWM (RBC) [Entitic mass] 30.5 lsAnutze55.0-33.0UnUC HealthComment on above: Performed By: #### [id number] ####[facility] ([facility])[address] [address]MMH (RBC) [Entitic vol]90.7 wMQjlopt94.0-98.0UnUC HealthComment on above:Performed By: #### [id number] ####[facility] ([facility])[address] [place] [place] [address]MFYHKOPEJ (10*3/UL) IN BLOOD AUTOMATED [id number] 10*3/eQQlhzho521-495VkwucjantcUC Health Comment on above:Performed By: #### [id number] ####[facility] ([facility] [place] [address]GST (Bld) [#/Vol]4.53 10*6/uLNormal3.80-5.00 [facility] HospitalComment on above:Performed By: #### [id number] ####[facility] ([facility])[address] [place] [address]KKY (Bld) [#/Vol]7.43 10*3/uLNormal4.00-10.60UnUC HealthComment on above:Performed By: #### [id number] ####[facility] ([facility])[address] [place] [place] [address]JLra 31-91-7807EBSF Electrophysiology Consult Note [facility] Reason for visit: Palpitations 05/23/24 Pt here for EPS and ablation. 04/18/24 Pt had LOOP implant which has revealed several episodes of SVT. She has symptoms with these and has CP. Prior HPI: Caty Hills is a 64 y.o. year old with past medical history of hypertension, rheumatoid arthritis, Presented to us for episodes of syncope. She is a former [facility] Heart Patient and was seen by them in September 2023. Says she had full neuro workup with and says it wasn't neurological related. She has been losing weight unintentionally the past year or so. Had echo in Jan 2023. Gets chest pain prior to syncopal episodes. Pain radiates to arm and back and sometimes jaw. Her episodes of palpitations started about 5 years ago and she noted these episodes lasting anywhere up to 30 seconds to 2 minutes. She is markedly symptomatic at this time with episodes of presyncope and chest pain. She was evaluated by Dr [facility] [place] and she had performed event monitor which was notable for atrial tachycardia, although strips are not available for me to review. She was subsequently placed on beta-blockers which did help to some extent. However now she is experiencing breakthrough episodes and has come for a second opinion. PMH: Past Medical History: Diagnosis Date Anxiety Chronic fatigue syndrome DDD (degenerative disc disease), lumbar Depression Fibromyalgia GERD (gastroesophageal reflux disease) Hypertension Hypokalemia Immunocompromised Irritable bowel syndrome Knee osteoarthritis Obesity, unspecified PONV (postoperative nausea and vomiting) RA (rheumatoid arthritis) ([facility]/HCC) Rheumatoid arthritis involving multiple sites with positive rheumatoid factor (CMS/[facility]) SVT (supraventricular tachycardia) Syncope PSH: Past Surgical History: Procedure Laterality Date BACK SURGERY CARPAL TUNNEL RELEASE HYSTERECTOMY JOINT REPLACEMENT Right 11/28/2023 [facility] [place] ARTHROP[LASTY WITH TENDON TRANSFER WITH CARPECTOMY OF TRAPEZOID REPLACEMENT TOTAL KNEE ONCOLOGIC Bilateral SH: Social Determinants of Health Tobacco Use: Medium Risk (05/07/2024) Received from [facility] Patient History Smoking Tobacco Use: Former Smokeless Tobacco Use: Never Passive Exposure: Not on file Alcohol Use: Not At Risk (05/07/2024) Received from [facility] AUDIT-C Frequency of Alcohol Consumption: Never Average Number of Drinks: Patient does not drink Frequency of Binge Drinking: Never Financial Resource Strain: Not on file Food Insecurity: Not on file Transportation Needs: Not on file Physical Activity: Not on file Stress: Not on file Social Connections: Not on file Intimate Partner Violence: Not At Risk (04/18/2024) Humiliation, Afraid, Rape, and Kick questionnaire Fear of Current or Ex-Partner: No Emotionally Abused: No Physically Abused: No Sexually Abused: No Depression: Not at risk (04/18/2024) PHQ-2 PHQ-2 Score: 2 Housing Stability: Not on file Utilities: Not on file Health Literacy: Not on file Allergies: No Known Allergies Weight: 99.8kg Visit Vitals BP 125/78 Pulse 59 Resp 16 Ht 1.702 m (5' 7 ) Wt 103 kg (228 lb) SpO2 100% BMI 35.71 kg/m??? OB Status Postmenopausal Smoking Status Former BSA 2.21 m??? Meds: No current facility-administered medications on file prior to encounter. Current Outpatient Medications on File Prior to Encounter Medication Sig Dispense Refill docusate sodium (Colace) 100 mg tablet Take 1 tablet (100 mg) by mouth if needed in the morning and at bedtime for constipation for up to 30 doses. 30 tablet 0 escitalopram (Lexapro) 20 mg tablet Take 20 mg by mouth at bedtime. fluticasone (Flonase) 50 mcg/actuation nasal spray Administer 1 spray into each nostril if needed for allergies or rhinitis. metoprolol succinate XL (Toprol-XL) 50 mg 24 hr tablet Take 25 mg by mouth two times daily. multivitamin tablet Take 1 tablet by mouth in the morning. oxyBUTYnin (Ditropan) 5 mg tablet Take 10 mg by mouth three times daily. pantoprazole (ProtoNix) 40 mg packet Take 40 mg by mouth before breakfast and before evening meal. plecanatide (Trulance) tablet tablet Take 3 mg by mouth in the morning. predniSONE (Deltasone) 5 mg tablet Take 15 mg by mouth if needed each day. pregabalin (Lyrica) 50 mg capsule Take 50 mg by mouth three times daily. upadacitinib ER (Rinvoq) 15 mg tablet extended release 24 hr Take 15 mg by mouth in the morning. valsartan (Diovan) 160 mg tablet Take 80 mg by mouth in the morning. mirabegron 50 mg tablet extended release 24 hr Take 50 mg by mouth at bedtime. QUEtiapine (SEROquel) 25 mg tablet Take 25 mg by mouth at bedtime. [DISCONTINUED] hydroxychloroquine (Plaquenil) 200 mg tablet Take 200 mg by mouth in the morning. ROS: Review of Systems Constitutional: Positive for weight los (more content not included)...Normal [facility] HospitalHPHistory Of Present Illness Prior HPI: Caty Hills is a 64 y.o. year old with past medical history of hypertension, rheumatoid arthritis, Presented to us for episodes of syncope. She is a former [facility] Heart Patient and was seen by them in September 2023. Says she had full neuro workup with and says it wasn't neurological related. She has been losing weight unintentionally the past year or so. Had echo in Jan 2023. Gets chest pain prior to syncopal episodes. Pain radiates to arm and back and sometimes jaw. Her episodes of palpitations started about 5 years ago and she noted these episodes lasting anywhere up to 30 seconds to 2 minutes. She is markedly symptomatic at this time with episodes of presyncope and chest pain. She was evaluated by Dr [facility] [place] and she had performed event monitor which was notable for atrial tachycardia, although strips are not available for me to review. She was subsequently placed on beta-blockers which did help to some extent. However now she is experiencing breakthrough episodes and has come for a second opinion. 04/18/24 Pt had LOOP implant which has revealed several episodes of SVT. She has symptoms with these and has CP. 05/23 Presenting today for EPS and SVT ablation. Past Medical History She has a past medical history of Anxiety, Chronic fatigue syndrome, DDD (degenerative disc disease), lumbar, Depression, Fibromyalgia, GERD (gastroesophageal reflux disease), Hypertension, Hypokalemia, Immunocompromised, Irritable bowel syndrome, Knee osteoarthritis, Obesity, unspecified, PONV (postoperative nausea and vomiting), RA (rheumatoid arthritis) ([facility]), Rheumatoid arthritis involving multiple sites with positive rheumatoid factor ([facility]), SVT (supraventricular tachycardia), and Syncope. Surgical History She has a past surgical history that includes Replacement total knee oncologic (Bilateral); Hysterectomy; Carpal tunnel release; Back surgery; and Joint replacement (Right, 11/28/2023). Social History She reports that she quit smoking about 25 years ago. Her smoking use included cigarettes. She has been exposed to tobacco smoke. She has never used smokeless tobacco. She reports that she does not currently use alcohol. She reports current drug use. Drug: Marijuana. Allergies Patient has no known allergies. Medications Medications Prior to Admission Medication Sig Dispense Refill Last Dose docusate sodium (Colace) 100 mg tablet Take 1 tablet (100 mg) by mouth if needed in the morning and at bedtime for constipation for up to 30 doses. 30 tablet 0 Past Month escitalopram (Lexapro) 20 mg tablet Take 20 mg by mouth at bedtime. 05/22/2024 fluticasone (Flonase) 50 mcg/actuation nasal spray Administer 1 spray into each nostril if needed for allergies or rhinitis. Past Month metoprolol succinate XL (Toprol-XL) 50 mg 24 hr tablet Take 25 mg by mouth two times daily. Past Week multivitamin tablet Take 1 tablet by mouth in the morning. 05/22/2024 oxyBUTYnin (Ditropan) 5 mg tablet Take 10 mg by mouth three times daily. 05/22/2024 pantoprazole (ProtoNix) 40 mg packet Take 40 mg by mouth before breakfast and before evening meal. 05/23/2024 plecanatide (Trulance) tablet tablet Take 3 mg by mouth in the morning. 05/22/2024 predniSONE (Deltasone) 5 mg tablet Take 15 mg by mouth if needed each day. Past Week pregabalin (Lyrica) 50 mg capsule Take 50 mg by mouth three times daily. 05/22/2024 upadacitinib ER (Rinvoq) 15 mg tablet extended release 24 hr Take 15 mg by mouth in the morning. 05/22/2024 valsartan (Diovan) 160 mg tablet Take 80 mg by mouth in the morning. 05/23/2024 mirabegron 50 mg tablet extended release 24 hr Take 50 mg by mouth at bedtime. Unknown QUEtiapine (SEROquel) 25 mg tablet Take 25 mg by mouth at bedtime. More than a month Review of Systems All other systems reviewed and are negative. Physical Exam Constitutional: Appearance: Normal appearance. Cardiovascular: Rate and Rhythm: Normal rate and regular rhythm. Pulmonary: Effort: Pulmonary effort is normal. No respiratory distress. Neurological: Mental Status: She is alert and oriented to person, place, and time. Last Recorded Vitals Blood pressure 125/78, pulse 59, resp. rate 16, height 1.702 m (5' 7 ), weight 103 kg (228 lb), SpO2 100%. Assessment/Plan Principal Problem: SVT (supraventricular tachycardia) 1- Symptomatic SVT Proceed with EPS and SVT ablation. Carol Ann Ramirez MD PGY-5 [employer] [facility] Pager # [phone] of [facility] Medical CenterNURSNOTEon [phone] educated pt on d/c instructions. This included: site care, limited physical activity, resume normal diet, future appointments, medications, and moderate sedation instructions. RN educated pt on when to notify physician and when to go to the hospital. RN encouraged pt to voice any questions or concerns, and answered any questions or concerns if pt verbalized. Pt was wheeled off of unit with all of belongings.NormalUnUC HealthOrders Onlyon [id number] [id number] Caty Hills 1960 F Date Provider Department Center 05/16/2024 [facility] Family History Problem Relation Age of Onset Atrial fibrillation Mother Heart attack Mother Valvular heart disease Father Atrial fibrillation Maternal Grandmother Family Status - Relation Status Age at Mother Father Maternal GrandmotherNFairfield Medical CenterCNPNon 05-10-2024 CNPNTelephone (VIVIA[facility]ORNE) CATY HILLS ([id number]) 1960 F Date Time Provider Department 05/10/24 CHRIS NO During your visit today, we recorded the following information about you: Marianela Mobley LPN 05/10/2024 2:53 PM Signed Receieved fax from [facility] that states dispensing pharmacy is [facility] for Rinvoq per patients coverage. Prior authorization is required and chart notes and labs results for PA should be faxed to [facility] at [phone]. Requested prescription to be sent to [facility] pharmacy at [phone]. Marianela Mobley LPN 05/10/2024 2:53 PM Signed Fax sent to [facility] at [phone] including chart notes and lab results as requested for prior authorization of Rinvoq. Fax confirmation received . Fax sent to [facility] at [phone] with new prescription order for Rinvoq. Fax confirmation received. Notification letter from [facility] sent for scanning . Allergies As of Date: 05/10/2024 Noted Allergy Reaction XELJANZ (TOFACITINIB) 03/08/2024 6 - Diarrhea Date Reviewed: 03/08/2024 Reviewed by: Lizzette Martell MA - Fully Assessed Reason for Visit: Medication Problem [65] Cmt: Rinvoq Prescriptions as of 05/10/2024 - predniSONE (DELTASONE) 5 mg tablet TAKE UP TO TAKE THREE TABLETS BY MOUTH DAILY NEEDED - upadacitinib tablet ER 24 hr 15 mg (RINVOQ) Take 1 tablet (15 mg) by mouth once daily. - atogepant (QULIPTA) 60 mg tablet Take 60 mg by mouth once daily. - hydrOXYchloroQUINE (PLAQUENIL) 200 mg tablet Take two tabs by mouth daily - meloxicam (MOBIC) 15 mg tablet take 1 tablet by mouth daily - metoprolol tartrate, short acting, (LOPRESSOR) 50 mg tablet Take 25 mg by mouth twice daily. - multivitamin tablet Take 1 tablet by mouth once daily. - ascorbic acid, vitamin C, (VITAMIN C) 500 mg tablet Take 1 tablet by mouth two times a day with meals. - Valsartan-hydroCHLOROthiazide 160-25 mg per tablet Take 1 tablet by mouth once daily. - escitalopram oxalate (LEXAPRO) 20 mg tablet Take 20 mg by mouth daily at bedtime. - QUEtiapine (SEROQUEL) 25 mg tablet Take 25 mg by mouth at bedtime as needed. Take 1-2 tabs as needed for sleep - Khichypbanwyd-Dosfbqoh-Fsawym (MULTIVITAMIN 50 PLUS) tab Take 1 tablet by mouth once daily. - pantoprazole DR (PROTONIX) 40 mg tablet Take 40 mg by mouth once daily. 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] 01/30/2020 Peroneal tendinitis of left lower extremity [M7*01/30/2020 Generalized epilepsy (HCC) [G40.309] 01/17/2021 01/21/2021 Obesity (BMI 30-39.9) [E66.9] Hypertension [I10] Heart palpitations [R00.2] Hypokalemia [E87.6] H/O iritis [Z86.69] 04/06/2022 Encounter Status:Closed by MARIANELA MOBLEY on 05/10/24[facility] 04-25-2024L Specimen: [id number] Received: 04/25/24 Status: [place] Andrew Num: [id number] Spec Type: Surgical Subm Dr: Rashaad Aaron MD Tissues: A Colon Biopsy (ASCENDING COLON POLYP) B Colon Biopsy (RANDOM COLON BX R/O MICRO CO) Procedures: ASHLEY/Zamzam Valentine/Quinten L4/2 Age/ Patient Sex Location Account Attending Physician Caty Hills/F [id number] Rashaad Aaron MD SPEC NUM: [id number] RECD: 04/25/24783 STATUS: [place] ANDREW NUM: [id number] ESTHELA: 04/25/24-[address]: Rashaad Aaron MD ENTERED: 04/25/24-[address] [facility] [address]: SPEC TYPE: Surgical DEPT: S ENTERED BY: [id number] [facility] BY: [id number] ORDERED: HE/7, Gross/Micro L4/2 ORDERED: HE7, Gross/Micro L4/2 Pathological Diagnosis A. Ascending colon polyp: Tubular adenoma. B. Random colon, biopsy: Benign colonic mucosa with no evidence of microscopic colitis identified. Clinical Information Diarrhea Gross Description Part A is received in formalin labeled with the patients name, date of , and ascending colon is a [place], focally erythematous, friable, 0.4 cm in greatest dimension tissue bit. The specimen is entirely submitted in a single cassette. (1, ns, [id number] A) JG Part B is received in formalin labeled with the patients name, date of , and random colon BX are 2 monte-[place], focally erythematous, friable, 0.4 cm each in greatest dimension tissue bits. The specimen is entirely submitted in a single cassette. (1, ns, [id number] B) JG Specimen: [id number] Received: 04/25/24 Status: [place] Andrew Num: [id number] Spec Type: Surgical Subm Dr: Rashaad Aaron MD Tissues: A Colon Biopsy (ASCENDING COLON POLYP) B Colon Biopsy (RANDOM COLON BX R/O MICRO CO) Procedures: HE/Meme, Gross/Micro L4/2 Patient: JackaloCaty bacon [id number] (Continued) Specimen: [id number] Received: 04/25/24 (Continued) Signed (signature on file) Maria D Pickering MD 04/26/24 1215 Specimen: [id number] Received: 04/25/24 Status: [place] Andrew Num: [id number] Spec Type: Surgical Subm Dr: Rashaad Aaron MD Tissues: A Colon Biopsy (ASCENDING COLON POLYP) B Colon Biopsy (RANDOM COLON BX R/O MICRO CO) Procedures: MAYCOL Gross/Micro L4/2 Patient: Caty Hills [id number] (Continued) Specimen: [id number] Received: 04/25/24 (Continued) CPT Codes 85488g6 Specimen: [id number] Received: 04/25/24 Status: [place] Ngjon Num: [id number] Spec Type: Surgical Subm Dr: Rashaad Aaron MD Tissues: A Colon Biopsy (ASCENDING COLON POLYP) B Colon Biopsy (RANDOM COLON BX R/O MICRO CO) Procedures: ASHLEY/Meme, Gross/Micro L4/2 Patient: Caty Hills [id number] (Continued) Signed (signature on file) Maria D Pickering MD 04/26/24 1215 [facility] GroupOffice Visiton [id number] visit [id number] Caty Hills 1960 F Date Provider Department Center 04/18/2024 Lesa[facility] Family History Problem Relation Age of Onset Atrial fibrillation Mother Heart attack Mother Valvular heart disease Father Atrial fibrillation Maternal Grandmother Family Status - Relation Status Age at Mother Father Maternal Grandmother Level of Service:30898 PA OFFICE/OUTPATIENT ESTABLISHED HIGH [facility] 40 [facility] CenterCNPNon [id number] (RHEUAV) CATY HILLS ([id number]) 1960 F Date Time Provider Department 03/30/24 CHRIS NO During your visit today, we recorded the following information about you: Alexandra Henderson LPN 03/30/2024 11:00 AM Signed Patient has been identified by name and date of : Yes, Provider Dr. No Date 03/30/24 Type of form: medication clarification for d/c Xeljanz and new Rinvoq order. Form received via: Fax Faxed Rx from 03/16/2024 to [facility] specialty at [phone] and [phone]. Alexandra Henderson LPN Allergies As of Date: 03/30/2024 Noted Allergy Reaction XELJANZ (TOFACITINIB) 03/08/2024 6 - Diarrhea Date Reviewed: 03/08/2024 Reviewed by: Lizzette Martell MA - Fully Assessed Reason for Visit: Orders [681] Cmt: Rinvoq clarification Prescriptions as of 03/30/2024 - upadacitinib tablet ER 24 hr 15 mg (RINVOQ) Take 1 tablet (15 mg) by mouth once daily. - atogepant (QULIPTA) 60 mg tablet Take 60 mg by mouth once daily. - hydrOXYchloroQUINE (PLAQUENIL) 200 mg tablet Take two tabs by mouth daily - meloxicam (MOBIC) 15 mg tablet take 1 tablet by mouth daily - predniSONE (DELTASONE) 5 mg tablet Take up 3 tabs daily as needed - metoprolol tartrate, short acting, (LOPRESSOR) 50 mg tablet Take 25 mg by mouth twice daily. - multivitamin tablet Take 1 tablet by mouth once daily. - ascorbic acid, vitamin C, (VITAMIN C) 500 mg tablet Take 1 tablet by mouth two times a day with meals. - Valsartan-hydroCHLOROthiazide 160-25 mg per tablet Take 1 tablet by mouth once daily. - escitalopram oxalate (LEXAPRO) 20 mg tablet Take 20 mg by mouth daily at bedtime. - QUEtiapine (SEROQUEL) 25 mg tablet Take 25 mg by mouth at bedtime as needed. Take 1-2 tabs as needed for sleep - Wyxgpsxhdugjb-Hllzzllw-Bhqtzd (MULTIVITAMIN 50 PLUS) tab Take 1 tablet by mouth once daily. - pantoprazole DR (PROTONIX) 40 mg tablet Take 40 mg by mouth once daily. 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 tuberculosis tuberculin stim IFN-g Ql (Bld)NegativeNoSaint Clare's Hospital at Denville HospitalComment on above:Order Comment: Specimen Type: BLOOD SPECIMEN Ordering Facility: [facility] Address: [address] [place], [place] [address]Performed By: #### INFTBP #### [facility] CLIA [id number] [address] [place] [address] [facility] OF AMERICAMITOGEN MINUS NIL8.21 IU/mL Normal>=0.50Itasca HospitalComment on above:Order Comment: Specimen Type: BLOOD SPECIMEN Ordering Facility: [facility] Address: [address] [place], [place] [address]Performed By: #### INFTBP #### [facility] CLIA [id number] [address] [place] [address] [place] OF AMERICATB GAMMA INTERPRETATION Infection with M. tuberculosis complex is unlikely. If latent tuberculosis infection is highly suspected, a negative result does not rule out the infection. Specimens from immunocompromised patients and those <5 years of age may show false negative results. In case of a contact investigation, please repeat 8-12 weeks after a known exposure.NormalAv HospitalComment on above: Order Comment: Specimen Type: BLOOD SPECIMEN Ordering Facility: [facility] Address: [address] [place], [place] [address]Performed By: #### INFTBP #### [facility] CLIA [id number] [address] [place] [address] STATES OF AMERICATB NIL0.04 IU/mLNormal<=8.00 [facility] HospitalComment on above:Order Comment: Specimen Type: BLOOD SPECIMEN Ordering Facility: [facility] Address: [address] [place], [place] [address]Performed By: #### INFTBP #### [facility] CLIA [id number] [address] [place] [address] STATES OF AMERICATB1 AG MINUS NIL0.00 IU/mL Normal<0.35Av HospitalComment on above:Order Comment: Specimen Type: BLOOD SPECIMEN Ordering Facility: [facility] Address: [address] [place], [place] [address]Performed By: #### INFTBP #### [facility] CLIA [id number] [address] [place] [address] STATES OF AMERICATB2 AG MINUS NIL0.00 IU/mL Normal<0.35Av HospitalComment on above:Order Comment: Specimen Type: BLOOD SPECIMEN Ordering Facility: [facility] Address: [address] [place], [place] [address]Performed By: #### INFTBP #### [facility] CLIA [id number] [address] [place] [address] OF [facility] W Auto Differential panel (Bld)on [id number] (Bld) [#/Vol]0.04 10*3/[facility]IFlower Hospital Differential cell count method Nom (Bld)AutoCleveland ClinicEosinophils (Bld) [#/Vol]NINFClevelcentral carolina hospital ClinicHematocrit (Bld) [Volume fraction]41.0 %36.0 - 46.0 % [facility] HospitalImmature granulocytes (Bld) [#/Vol]NINFClevelcentral carolina hospital ClinicImmature granulocytes/100 WBC (Bld)0.3 %[facility] HospitalLymphocytes (Bld) [#/Vol]1.00 10*3/[facility] HospitalMonocytes (Bld) [#/Vol]0.32 10*3/uLNIFlower Hospital Neutrophils (Bld) [#/Vol]5.36 10*3/[facility] HospitalNucleated RBC (Bld) [#/Vol] NINFCleveland ClinicNucleated RBC/100 WBC (Bld) [Ratio]0.0 %/100 WBCJoint Township District Memorial HospitalPlatelet mean volume (Bld) [Entitic vol]10.3 fL9.0 - 12.7 fLClevelcentral carolina hospital ClinicPlatelets (Bld) [#/Vol]222 10*3/uLCleveland ClinicWBC (Bld) [#/Vol]6.75 10*3/uLLocust Hill ClinicBasophils (Bld) [#/Vol]0.04 10*3/uLNormal<0.11Avon HospitalComment on above:Order Comment: Specimen Type: BLOOD SPECIMEN Ordering Facility: [facility] Address: [address] [place], [place] [address]Performed By: #### 30303-0 #### [facility] CLIA [id number] [address] [place] [address] [place] OF AMERICABasophils/100 WBC (Bld)0.6 %NormalAv HospitalComment on above:Order Comment: Specimen Type: BLOOD SPECIMEN Ordering Facility: [facility] Address: [address] [place], [place] [address]Performed By: #### 49500-8 #### [facility] [place] [id number] [address] [place] [address] [place] OF AMERICADifferential cell count method Nom (Bld) AutoNormalAvon HospitalComment on above:Order Comment: Specimen Type: BLOOD SPECIMEN Ordering Facility: [facility] Address: [address] [place], [place] [address]Performed By: #### 75541-6 #### [facility] [place] [id number] [address] [place] [address] [place] AMERICAEosinophils (Bld) [#/Vol]10*3/uLNormal <0.46Avon HospitalComment on above:Order Comment: Specimen Type: BLOOD SPECIMEN Ordering Facility: [facility] Address: [address] [place], [place] [address]Performed By: #### 59703-9 #### [facility] CLIA [id number] [address] [place] [address] [place] AMERICAEosinophils/100 WBC (Bld)0.1 %NormalAvon HospitalComment on above:Order Comment: Specimen Type: BLOOD SPECIMEN Ordering Facility: [facility] Address: [address] [place], [place] [address]Performed By: #### 61952-8 #### [facility] IA [id number] [address] [place] [address] [place] OF AMERICAErythrocyte distribution width (RBC) [Ratio]12.5 %Frqfft60.5-15.0Avon HospitalComment on above:Order Comment: Specimen Type: BLOOD SPECIMEN Ordering Facility: [facility] Address: [address] [place], [place] [address]Performed By: #### 84145-5 #### [facility] IA [id number] [address] [place] [address] [place] OF AMERICAHematocrit (Bld) [Volume fraction]41.0 % Ctsqpt09.0-46.0Avon HospitalComment on above:Order Comment: Specimen Type: BLOOD SPECIMEN Ordering Facility: [facility] Address: [address] [place], [place] [address]Performed By: #### 56471-4 #### [facility] IA [id number] [address] [place] [address] [place] AMERICAHemoglobin (Bld) [Mass/Vol]13.8 g/dL Anwubd94.5-15.5Avon HospitalComment on above:Order Comment: Specimen Type: BLOOD SPECIMEN Ordering Facility: [facility] Address: [address] [place], [place] [address]Performed By: #### 91475-8 #### [facility] IA [id number] [address] [place] [address] [place] OF AMERICAImmature granulocytes (Bld) [#/Vol] 10*3/uLNormal<0.10Avon HospitalComment on above:Order Comment: Specimen Type: BLOOD SPECIMEN Ordering Facility: [facility] Address: [address] [place], [place] [address]Performed By: #### 29343-2 #### [facility] IA [id number] [address] [place] [address] [place] AMERICAImmature granulocytes/100 WBC (Bld)0.3 % NormalAv HospitalComment on above:Order Comment: Specimen Type: BLOOD SPECIMEN Ordering Facility: [facility] Address: [address] [place], [place] [address]Performed By: #### 14518-9 #### [facility] CLIA [id number] [address] [place] [address] [place] OF AMERICALymphocytes (Bld) [#/Vol]1.00 10*3/uL Normal1.00-4.00Av HospitalComment on above:Order Comment: Specimen Type: BLOOD SPECIMEN Ordering Facility: [facility] Address: [address] [place], [place] [address]Performed By: #### 68957-0 #### [facility] IA [id number] [address] [place] [address] [place] OF AMERICALymphocytes/100 WBC (Bld)14.8 %NormalAv HospitalComment on above:Order Comment: Specimen Type: BLOOD SPECIMEN Ordering Facility: [facility] Address: [address] [place], [place] [address]Performed By: #### 73443-7 #### [facility] IA [id number] [address] [place] [address] [facility] (RBC) [Entitic mass]30.8 pgNormal 26.0-34.0Av HospitalComment on above:Order Comment: Specimen Type: BLOOD SPECIMEN Ordering Facility: [facility] Address: [address] [place], [place] [address]Performed By: #### 29377-1 #### [facility] IA [id number] [address] [place] [address] [facility] (RBC) [Mass/Vol]33.7 g/dLNormal 30.5-36.0Av HospitalComment on above:Order Comment: Specimen Type: BLOOD SPECIMEN Ordering Facility: [facility] Address: [address] [place], [place] [address]Performed By: #### 91566-3 #### [facility] IA [id number] [address] [place] [address] [place] AMERICAMCV (RBC) [Entitic vol]91.5 fLNormal 80.0-100.0Av HospitalComment on above:Order Comment: Specimen Type: BLOOD SPECIMEN Ordering Facility: [facility] Address: [address] [place], [place] [address]Performed By: #### 19991-2 #### [facility] IA [id number] [address] [place] [address] [place] AMERICAMonocytes (Bld) [#/Vol]0.32 10*3/uLNormal <0.87Av HospitalComment on above:Order Comment: Specimen Type: BLOOD SPECIMEN Ordering Facility: [facility] Address: [address] [place], [place] [address]Performed By: #### 11534-6 #### [facility] IA [id number] [address] [place] [address] [place] AMERICAMonocytes/100 WBC (Bld)4.7 %NormalAv HospitalComment on above:Order Comment: Specimen Type: BLOOD SPECIMEN Ordering Facility: [facility] Address: [address] [place], [place] [address]Performed By: #### 55899-8 #### [facility] IA [id number] [address] [place] [address] [place] AMERICANeutrophils (Bld) [#/Vol]5.36 10*3/uL Normal1.45-7.50Av HospitalComment on above:Order Comment: Specimen Type: BLOOD SPECIMEN Ordering Facility: [facility] Address: [address] [place], [place] [address]Performed By: #### 06982-5 #### [facility] IA [id number] [address] [place] [address] [place] AMERICANeutrophils/100 WBC (Bld)79.5 %NormalAv HospitalComment on above:Order Comment: Specimen Type: BLOOD SPECIMEN Ordering Facility: [facility] Address: [address] [place], [place] [address]Performed By: #### 04210-8 #### [facility] IA [id number] [address] [facility] [place] [address] [place] AMERICANucleated RBC (Bld) [#/Vol]10*3/uLNormal <0.01Avon HospitalComment on above:Order Comment: Specimen Type: BLOOD SPECIMEN Ordering Facility: [facility] Address: [address] [place], [place] [address]Performed By: #### 44340-6 #### [facility] IA [id number] [address] [place] [address] [place] AMERICANucleated RBC/100 WBC (Bld) [Ratio]0.0 /100 WBCNormalAvon HospitalComment on above:Order Comment: Specimen Type: BLOOD SPECIMEN Ordering Facility: [facility] Address: [address] [place], [place] [address]Performed By: #### 12793-0 #### [facility] IA [id number] [address] [place] [address] [place] AMERICAPlatelet mean volume (Bld) [Entitic vol] 10.3 fLNormal9.0-12.7Avon HospitalComment on above:Order Comment: Specimen Type: BLOOD SPECIMEN Ordering Facility: [facility] Address: [address] [place], [place] [address]Performed By: #### 27320-2 #### [facility] IA [id number] [address] [facility] [place] [address] [place] AMERICAPlatelets (Bld) [#/Vol]222 10*3/uLNormal 150-400Avon HospitalComment on above:Order Comment: Specimen Type: BLOOD SPECIMEN Ordering Facility: [facility] Address: [address] [place], [place] [address]Performed By: #### 88101-7 #### [facility] IA [id number] [address] [facility] [place] [address] [place] AMERICARBC (Bld) [#/Vol]4.48 10*6/uLNormal 3.90-5.20Av HospitalComment on above:Order Comment: Specimen Type: BLOOD SPECIMEN Ordering Facility: [facility] Address: [address] [place], [place] [address]Performed By: #### 99369-6 #### [facility] CLIA [id number] [address] [place] [address] [facility] CENTER NORTHWBC (Bld) [#/Vol]6.75 10*3/uLNormal 3.70-11.00Av HospitalComment on above:Order Comment: Specimen Type: BLOOD SPECIMEN Ordering Facility: [facility] Address: [address] [place], [place] [address]Performed By: #### 22487-8 #### [facility] CLIA [id number] [address] [place] [address] [facility] CBC W AUTO DIFF BLDon [id number] BASOPHILS # BLD AUTO0.04NISt. Francis Hospital DIFFERENTIAL METHOD BLDAutoNOMUniversity Health Truman Medical Center EOSINOPHIL # BLD AUTO<0.03NISt. Francis Hospital LYMPHOCYTES # BLD [id number] Louis University Hospital MONOCYTES # BLD AUTO0.32NISt. Francis Hospital NEUTROPHILS # BLD AUTO5.36NOSaint Louis University Hospital NRBC # BLD AUTO<0.01NISt. Francis Hospital NRBC/100 WBC BLD-RTO0/100 WBCParkland Health Center PLATELET # BLD [id number] Louis University Hospital PMV BLD AUTO10.3 fL9.0 - 12.7 fLParkland Health Center WBC # BLD AUTO6.75Ellett Memorial HospitalHematocrit (Bld) [Volume fraction]41 %36.0 - 46.0 %NOMS HealthcareIMM GRANULOCYTES # BLD AUTO<0.03NIPsychiatric Hospital at VanderbiltIM GRANULOCYTES/LEUK NFR BLD AUTO0.3 %NOMS HealthcareSpecimen Type: BLOOD SPECIMEN Ordering Facility: [facility] Address: [address] [place] [address] Original Ordering Provider: CHRIS Holloway [id number] Visit (VIVIANADENZELV) CATY HILLS ([id number]) 1960 F Date Time Provider Department 03/08/24 2:20 PM CHRIS NO During your visit today, we recorded the following information about you: Pulse Respiration Blood pressure Weight 66/minute 16/minute 151/74 102.8 kg Chris No MD 03/08/2024 2:19 PM Signed [facility] Out[facility] Date of Service: 03/08/2024 Patient: Caty Hills Medical Record: [id number] Primary Care Physician: Anibal Juan DO, DO Last Rheumatology visit: 12/26/2023 (with Chris No) History of Present Illness Caty Hills is a 63 year old White female who presents on 03/08/2024 for an in-person visit for evaluation of Follow Up (2 month/Knees, feet and shoulders are hurting./Pt took 2 prednisone's this AM) and Rheumatoid Arthritis. Her most recent CHERIE was negative (07/11/2020). HISTORY OF PRESENT ILLNESS This patient is known to me from my previous practice with [facility] with diagnosis of rheumatoid arthritis. This patient has been on DMARD therapy in the past with methotrexate and has not tolerated it well. She had been on a sequence of Biologics and when last seen in May 2021 was on Rinvoq 15 mg daily and doing well. Then in June 2021 that she developed a bout of iritis. She was being seen by a different real estate specialist with [facility] and switch her off of Rinvoq and placed her on Humira for the iritis. The patient has tolerated the Humira and it is improved her iritis. She has not needed to be on topical steroid treatment for her eyes in several months now. She does get some breakthrough discomfort in her eyes but no full-blown iritis. Where is a bigger problem is off of the Rinvoq she is had escalation of rheumatoid arthritis activity in her hands, wrists, shoulders, right knee and toes despite being on the Humira. Her other real estate specialist is even attempted to place methotrexate in combination with the Humira and this did not improve her rheumatoid arthritis and she felt ill on the methotrexate and has discontinued it. She was inquiring as to whether or not she would be allowed to go back onto the Rinvoq. Aside from the iritis she has not experienced any other extra-articular manifestations of rheumatoid arthritis. She shares with me that she had her right knee replaced 3 months ago and it is not doing as well as the left knee did from 2-1/2 years ago. The right knee remains quite swollen and painful and she believes the rheumatoid arthritis may be contributing to the right knee pain. INTERVAL HISTORY Patient returns for reevaluation and management of her rheumatoid arthritis. Since last visit patient has maintained hydroxychloroquine 400 mg daily and Xeljanz XR 11 mg daily and meloxicam 15 mg daily. She states she had to stop the Xeljanz because GI side effects and has been off of it a couple of weeks and is starting to experience breakthrough swelling, stiffness and pain in the fingers, wrists, shoulders, knees, ankles and feet. Her right thumb doing better from surgery 3 month back. Her fatigue remains about the same and is a challenge for her. There are no new extra-articular manifestations of rheumatoid arthritis. Her general health has been unchanged from last visit. Rheum/Ortho Arthrocentesis Injections (last 5) 03/02/2023 12:44 Injection History Location thumb Thumb Site R thumb [facility] Patient-Entered Data PAIN EVALUATION No data found in the last 1 encounters. PROMIS Assessments 07/31/2023 PROMIS Assessments Physical Health Percentile 10 Mental Health Percentile 26 Pain Score 3 Pain Interference Percentile 4 Fatigue Percentile 10 Physical Function Percentile 7 RAPID 3 [place] Activities of Daily Living 07/31/2023 3:09 PM Dress self? With SOME difficulty Get in and out of bed? With SOME difficulty Walk outdoors? With SOME difficulty Wash and dry body? Without ANY difficulty Get in and out of car? With SOME difficulty RAPID 3 Disease Activity Weighed Score Levels: 0 - 1: Near Remission 1.3 - 2.0: Low Severity 2.3 - 4.0: Moderate Severity 4.3 - 10.0: High Severity 07/31/2023 RAPID-3 Weighed Score RAPID 3 Weighed Score 4.83 (High severity ) Review of Systems Review of Systems CONSTITUTION: Negative for: Weight loss or gain, Fever. Chills, Night sweats HEENT: Negative for: Nosebleeds, Mouth sores, Trouble swallowing, Dry mouth RESPIRATORY: Negative for: Cough, Shortness of breath, Pain with breathing, Coughing up blood GASTROINTESTINAL: Positive for: Abdominal pain Negative for: Melena, Diarrhea and Heartburn MUSCULOSKELETAL: Positive for: Arthralgias and Morning Joint Stiffness Negative for: Myalgias, Muscle weakness and Joint swelling NEUROLOGICAL: Negative for: Headaches, Numbness, Memory loss, SKIN: Negative for: Rashes, Sun sensitive rashes, (more content not included)... NormalChillicothe Va Medical CenterComprehensive metabolic 2000 panelon 03-08-2024 Albumin [Mass/Vol]4.2 g/dL3.9 - 4.9 g/dLLocust Hill ClinicALP [Catalytic activity/Vol]63 U/L34 - 123 U/LCleveland ClinicALT [Catalytic activity/Vol]17 U/L7 - 38 U/LCleveland ClinicAnion gap [Moles/Vol]14 mmol/L8 - 15 mmol/L [facility] HospitalAST [Catalytic activity/Vol]23 U/L13 - 35 U/LCleveland [facility] Bilirubin [Mass/Vol]0.3 mg/dL0.2 - 1.3 mg/dLJoint Township District Memorial HospitalCalcium [Mass/Vol] 9.4 mg/dL8.5 - 10.2 mg/dLJoint Township District Memorial HospitalChloride [Moles/Vol]102 mmol/L98 - 107 mmol/LCleveland ClinicCO2 [Moles/Vol]21 mmol/LLow22 - 30 mmol/LCleveland [facility] Creatinine [Mass/Vol]0.80 mg/dL0.58 - 0.96 mg/dLJoint Township District Memorial HospitalGFR/1.73 sq M.predicted among non-blacks MDRD (S/P/Bld) [Vol rate/Area]83 mL/min/{1.73_m2}- PINFCleveland ClinicComment on above:Estimated Glomerular Filtration Rate (eGFR) is calculated using the 2020 CKD-EPI creatinine equation. This equation utilizes serum creatinine, sex, and age as parameters. The creatinine assay has traceable calibration to isotope dilution-mass spectrometry. Refer to KDIGO guidelines for clinical interpretation. In patients with unstable renal function, e.g. those with acute kidney injury, the eGFRmay not accurately reflect actual GFR.Glucose [Mass/Vol]93 mg/dL74 - 99 mg/dLJoint Township District Memorial HospitalComment on above:The [place] Diabetes Association (ADA) provides guidance for cutoff values for fasting glucose andrandom glucose. The ADA defines fasting as no caloric intake for at least 8 hours. Fasting plasma glucose results between 100 to 125 mg/dL indicate increased risk for diabetes (prediabetes). Fasting plasma glucose results greater than or equal to 126 mg/dL meet the criteria for diagnosis of diabetes. In the absence of unequivocal hyperglycemia, results should be confirmed by repeat testing. In a patient with classic symptoms of hyperglycemia or hyperglycemic crisis, random plasma glucose results greater than or equal to 200 mg/dL meet the criteria for diagnosis of diabetes. Reference: Standards of Medical Care in Diabetes 2016, [place] Diabetes [employer]. Diabetes Care. 2016.39(Suppl 1). Interpretation and review of laboratory resultsAbnormalCleveland ClinicPotassium [Moles/Vol]4.7 mmol/L3.7 - 5.1 mmol/LClevelcentral carolina hospital ClinicProtein [Mass/Vol]7.2 g/dL 6.3 - 8.0 g/dLLocust Hill ClinicSodium [Moles/Vol]137 mmol/L136 - 144 mmol/L [facility] HospitalUrea nitrogen [Mass/Vol]19 mg/dL7 - 21 mg/dLChillicothe Va Medical Center ClinicAlbumin [Mass/Vol]4.2 g/dLNormal3.9-4.9Avon HospitalComment on above:Order Comment: Specimen Type: BLOOD SPECIMEN Ordering Facility: [facility] Address: [address] [place], [place] [address]Performed By: #### 78508-7 #### [facility] CLIA [id number] [facility] [place] [address] [place] AMERICAALP [Catalytic activity/Vol]63 U/LNormal 34-123Avon HospitalComment on above:Order Comment: Specimen Type: BLOOD SPECIMEN Ordering Facility: [facility] Address: [address], [place] [address]Performed By: #### 15255-0 #### [facility] CLIA [id number] [address] [place] [address] [place] AMERICAALT [Catalytic activity/Vol]17 U/LNormal 7-38Avon HospitalComment on above:Order Comment: Specimen Type: BLOOD SPECIMEN Ordering Facility: [facility] Address: [address] [place], [place] [id number] By: #### 10894-2 #### [facility] IA [id number] [address] [place] [address] [place] AMERICAAnion gap [Moles/Vol]14 mmol/LNormal8-15 [facility] HospitalComment on above:Order Comment: Specimen Type: BLOOD SPECIMEN Ordering Facility: [facility] Address: [address] [place], [place] [address]Performed By: #### 52716-5 #### [facility] IA [id number] [address] [place] [address] [place] AMERICAAST [Catalytic activity/Vol]23 U/LNormal 13-35Av HospitalComment on above:Order Comment: Specimen Type: BLOOD SPECIMEN Ordering Facility: [facility] Address: [address] [place], [place] [address]Performed By: #### 54954-3 #### [facility] IA [id number] [address] [place] [address] [place] AMERICABilirubin [Mass/Vol]0.3 mg/dLNormal 0.2-1.3Avo HospitalComment on above:Order Comment: Specimen Type: BLOOD SPECIMEN Ordering Facility: [facility] Address: [address] [place], [place] [id number] By: #### 91892-4 #### [facility] IA [id number] [address] [place] [address] [place] AMERICACalcium [Mass/Vol]9.4 mg/dLNormal8.5-10.2 [facility] HospitalComment on above:Order Comment: Specimen Type: BLOOD SPECIMEN Ordering Facility: [facility] Address: [address] [place], [place] [id number] By: #### 83346-8 #### [facility] CLIA [id number] [address] [place] [address] [place] AMERICAChloride [Moles/Vol]102 mmol/LNormal 98-107Av HospitalComment on above:Order Comment: Specimen Type: BLOOD SPECIMEN Ordering Facility: [facility] Address: [address] [place], [place] [address]Performed By: #### 94797-6 #### [facility] CLIA [id number] [address] [place] [address] [place] AMERICACO2 [Moles/Vol]21 mmol/NCmu20-53Chqz HospitalComment on above:Order Comment: Specimen Type: BLOOD SPECIMEN Ordering Facility: [facility] Address: [address] [place], [place] [address]Performed By: #### 91962-6 #### [facility] CLIA [id number] [place] [address] [place] AMERICACreatinine [Mass/Vol]0.80 mg/dLNormal 0.58-0.96Av HospitalComment on above:Order Comment: Specimen Type: BLOOD SPECIMEN Ordering Facility: [facility] Address: [address] [place], [place] [address]Performed By: #### 44846-7 #### [facility] IA [id number] [address] [place] [address] [place] AMERICACreatinine and Glomerular filtration rate.predicted panel (S/P/Bld)83 mL/min/1.73m???Normal>=60Av HospitalComment on above:Order Comment: Specimen Type: BLOOD SPECIMEN Ordering Facility: [facility] Address: [address] [place], [place] [address]Result Comment: Estimated Glomerular Filtration Rate (eGFR) is calculated using the 2020 CKD-EPI cre atinine equation. This equation utilizes serum creatinine, sex, and age as parameters. The creatinine assay has traceable calibration to isotope dilution- mass spectrometry. Refer to KDIGO guidelines for clinical interpretation. In patients with unstable renal function, e.g. those with acute kidney injury, the eGFR may not accurately reflect actual GFR.Performed By: #### 67301-7 #### [facility] CLIA [id number] [address] [place] [address] [place] AMERICAGlucose [Mass/Vol]93 mg/qAQlslgu53-61Qevb HospitalComment on above:Order Comment: Specimen Type: BLOOD SPECIMEN Ordering Facility: [facility] Address: [address] [place], [place] [address]Result Comment: The [place] Diabetes Association (ADA) provides guidance for cutoff values for fasting glucose and random glucose. The ADA defines fasting as no caloric intake for at least 8 hours. Fasting plasma glucose results between 100 to 125 mg/dL indicate increased risk for diabetes (prediabetes). Fasting plasma glucose results greater than or equal to 126 mg/dL meet the criteria for diagnosis of diabetes. In the absence of unequivocal hyperglycemia, results should be confirmed by repeat testing. In a patient with classic symptoms of hyperglycemia or hyperglycemic crisis, random plasma glucose results greater than or equal to 200 mg/dL meet the criteria for diagnosis of diabetes. Reference: Standards of Medical Care in Diabetes 2016, [place] Diabetes Association. Diabetes Care. 2016.39(Suppl 1).Performed By: #### 63586-7 #### [facility] CLIA [id number] [address] [place] [address] [place] AMERICAPotassium [Moles/Vol]4.7 mmol/LNormal 3.7-5.1Ahunterdon medical center HospitalComment on above:Order Comment: Specimen Type: BLOOD SPECIMEN Ordering Facility: [facility] Address: [address] [id number] By: #### 22534-6 #### [facility] CLIA [id number] [address] [place] [address] [place] AMERICAProtein [Mass/Vol]7.2 g/dLNormal6.3-8.0 [facility] HospitalComment on above:Order Comment: Specimen Type: BLOOD SPECIMEN Ordering Facility: [facility] Address: [address] [id number] By: #### 42607-0 #### [facility] IA [id number] [address] [place] [address] [place] AMERICASodium [Moles/Vol]137 mmol/QSlhzgu861-209 [facility] HospitalComment on above:Order Comment: Specimen Type: BLOOD SPECIMEN Ordering Facility: [facility] Address: [address] [place], [place] [address]Performed By: #### 20508-9 #### [facility] CLIA [id number] [place] [address] [place] AMERICAUrea nitrogen [Mass/Vol]19 mg/dLNormal 10-22[facility] HospitalComment on above:Order Comment: Specimen Type: BLOOD SPECIMEN Ordering Facility: [facility] Address: [address] [place], [place] [address]Performed By: #### 09062-5 #### [facility] CLIA [id number] [place] [address] [place] OF AMERICAHBV surface Ag Ser Qlon 43-48-9445LGO surface Ag Ql (S)NegativeNormalNegativeItasca HospitalComment on above:Order Comment: Specimen Type: BLOOD SPECIMEN Ordering Facility: [facility] Address: [address] [place], [place] [address]Performed By: #### 5195-3 #### [facility] CLIA [id number] [address] [place] [address] [place] OF AMERICALaboratory - Hematology and Cell countson 02-21-2878Dsioipiov/100 WBC (Bld)0.6 %[facility] Eosinophils/100 WBC (Bld)0.1 %[facility] HealthcareErythrocyte distribution width (RBC) [Ratio]12.5 %11.5 - 15.0 %[facility] HealthcareHemoglobin (Bld) [Mass/Vol]13.8 g/dL11.5 - 15.5 g/dLNONC HealthcareLymphocytes/100 WBC (Bld)14.8 %[facility] HospitalMCH (RBC) [Entitic mass]30.8 pg26.0 - 34.0 pgNOMS [facility] HospitalMCHC (RBC) [Mass/Vol]33.7 g/dL30.5 - 36.0 g/dLEllett Memorial HospitalMCV (RBC) [Entitic vol]91.5 fL 80.0 - 100.0 fLEllett Memorial HospitalMonocytes/100 WBC (Bld)4.7 %[facility] Neutrophils/100 WBC (Bld)79.5 %[facility] HospitalRBC (Bld) [#/Vol]4.48 10*6/uL3.90 - 5.20 m/uLEllett Memorial HospitalNo Panel Informationon 49-74-5601WJNUEllett Memorial Hospital Follow-Upon [id number] AbimbolaApoorvaCaty M 1960 F Date Provider Department Center 02/15/2024 [facility] Family History Problem Relation Age of Onset Atrial fibrillation Mother Heart attack Mother Valvular heart disease Father Atrial fibrillation Maternal Grandmother Family Status - Relation Status Age at Mother Father Maternal Grandmother Level of Service:14092 PA POSTOP FOLLOW UP VISIT RELATED TO ORIGINAL PX Reason for Visit and Comments: Pain [136] Pain [136][facility]36on Patient returned my call and provided me with the fax number. I faxed last office note (01/04/24) to [employer] at [phone].[facility]36Left message for patient to return my call. I am needing a fax number to send office note per her request.[facility]36on [id number] would like her AVS sent to [employer] PH#[phone] [facility] HospitalBacteria identified Cx Nom (U)on 01-06-2024 [facility] HealthcareLaboratory - Microbiology and Antimicrobial susceptibilityon 73-43-8300Ljtkjeby identified Cx Nom (U)Final reportAbnoNazareth Hospital Bacteria identified Cx Nom (U)CommentNONC HealthcareComment on above:Beta hemolytic Streptococcus, group B 10,000-25,000 colony forming units per mL Penicillin and ampicillin are drugs of choice for treatment of beta-hemolytic streptococcal infections. Susceptibility testing of penicillins and other beta-lactam agents approved by the FDA for treatment of beta-hemolytic streptococcal infections need not be performed routinely because nonsusceptible isolates are extremely rare in any beta-hemolytic streptococcus and have not been reported for Streptococcus pyogenes (group A). (CLSI) Mixed urogenital riley Less than 10,000 colonies/mL No Panel Informationon 11-93-9585Ahtdzgjrldfusf and review of laboratory results AbnormalNOMS HealthcarePerformed at: [address] [id number] [employer] Welder: Josh Moreno PhD, Phone: [phone] [facility] Urinalysis macro (dipstick) panel (U)on 80-67-3754Ucfjjjbnm, UANegativeNegative - 4(70) +++ mg/dLNOMS HealthcareBlood, UAPositiveNegative - 50 Derek/mcLNONC HealthcareClarity, UAClearNOMS HealthcareColor, UAYellowNOMS HealthcareGlucose, UANegativeNegative - 2000(110) ++++ mg/dLNONC HealthcareInterpretation and review of laboratory resultsAbnormalNOMS HealthcareKetones, UANegativeNegative - 160(16) ++++ mg/dLNONC HealthcareLeukocytes, UAPositiveNegative - 500+++ Zuri/mcLNONC HealthcareNitrite, UANegativeNegative - PositiveNOMS HealthcarepH, UA6.05 - 9N[facility] HealthcareProtein, UANegativeNegative - 2000(20) ++++ mg/dLNOMS HealthcareSpec Grav, UA1.0101 - 1.03NOMS HealthcareUrobilinogen, UA0.20.2 - 12 mg/dLNOMS HealthcareNOMS HealthcareCBC W Auto Differential panel (Bld)on [id number] (Bld) [#/Vol]0.05 10*3/uLNINFJoint Township District Memorial HospitalBasophils/100 WBC (Bld)0.8 %[facility] HospitalDifferential cell count method Nom (Bld)Auto [facility] HospitalEosinophils (Bld) [#/Vol]0.10 10*3/uLNINFJoint Township District Memorial Hospital Eosinophils/100 WBC (Bld)1.7 %[facility] Memorial HospitalErythrocyte distribution width (RBC) [Ratio]11.6 %11.5 - 15.0 %[facility] HospitalHematocrit (Bld) [Volume fraction]38.9 %36.0 - 46.0 %[facility] HospitalHemoglobin (Bld) [Mass/Vol]12.7 g/dL 11.5 - 15.5 g/dLJoint Township District Memorial HospitalImmature granulocytes (Bld) [#/Vol]NINFClevelcentral carolina hospital ClinicImmature granulocytes/100 WBC (Bld)0.2 %[facility] HospitalLymphocytes (Bld) [#/Vol]2.21 10*3/uLJoint Township District Memorial HospitalLymphocytes/100 WBC (Bld)37.5 %[facility] HospitalH (RBC) [Entitic mass]30.6 pg26.0 - 34.0 pgClevelTyler HospitalHC (RBC) [Mass/Vol]32.6 g/dL30.5 - 36.0 g/dLMercy Health Clermont HospitalV (RBC) [Entitic vol]93.7 fL80.0 - 100.0 fLClevelcentral carolina hospital ClinicMonocytes (Bld) [#/Vol]0.63 10*3/uLNINF [facility] ClinicMonocytes/100 WBC (Bld)10.7 %[facility] HospitalNeutrophils (Bld) [#/Vol]2.89 10*3/uLJoint Township District Memorial HospitalNeutrophils/100 WBC (Bld)49.1 %[facility] HospitalNucleated RBC (Bld) [#/Vol]NINFClevelcentral carolina hospital ClinicNucleated RBC/100 WBC (Bld) [Ratio]0.0 %/100 WBCLocust Hill ClinicPlatelet mean volume (Bld) [Entitic vol] 10.6 fL9.0 - 12.7 fLCregency hospital cleveland west ClinicPlatelets (Bld) [#/Vol]204 10*3/uLJoint Township District Memorial HospitalRBC (Bld) [#/Vol]4.15 10*6/uL3.90 - 5.20 m/[facility] HospitalWBC (Bld) [#/Vol]5.89 10*3/[facility] HospitalComprehensive metabolic 2000 panelon 62-92-3952Xmbixyt [Mass/Vol]4.1 g/dL3.9 - 4.9 g/dLLocust Hill ClinicALP [Catalytic activity/Vol]73 U/L34 - 123 U/LCleveland ClinicALT [Catalytic activity/Vol]15 U/L7 - 38 U/LCleveland ClinicAnion gap [Moles/Vol]11 mmol/L9 - 18 mmol/LCleveland ClinicAST [Catalytic activity/Vol]18 U/L13 - 35 U/LCleveland ClinicBilirubin [Mass/Vol]0.4 mg/dL0.2 - 1.3 mg/dLClefairfield medical center ClinicCalcium [Mass/Vol]9.3 mg/dL8.5 - 10.2 mg/dLLocust Hill ClinicChloride [Moles/Vol]102 mmol/L97 - 105 mmol/LCleveland ClinicCO2 [Moles/Vol]25 mmol/L22 - 30 mmol/L [facility] HospitalCreatinine [Mass/Vol]0.75 mg/dL0.58 - 0.96 mg/dLJoint Township District Memorial Hospital GFR/1.73 sq M.predicted among non-blacks MDRD (S/P/Bld) [Vol rate/Area]90 mL/min/{1.73_m2}- PINOhioHealth Hardin Memorial HospitalComment on above:Estimated Glomerular Filtration Rate (eGFR) is calculated using the 2020 CKD-EPI creatinine equation. This equation utilizes serum creatinine, sex, and age as parameters. The creatinine assay has traceable calibration to isotope dilution-mass spectrometry. Refer to KDIGO guidelines for clinical interpretation. In patients with unstable renal function, e.g. those with acute kidney injury, the eGFRmay not accurately reflect actual GFR.Glucose [Mass/Vol]91 mg/dL74 - 99 mg/dL [facility] Hospitalment on above:The [place] Diabetes Association (ADA) provides guidance for cutoff values for fasting glucose andrandom glucose. The ADA defines fasting as no caloric intake for at least 8 hours. Fasting plasma gl ucose results between 100 to 125 mg/dL indicate increased risk for diabetes (prediabetes). Fasting plasma glucose results greater than or equal to 126 mg/dL meet the criteria for diagnosis of diabetes. In the absence of unequivocal hyperglycemia, results should be confirmed by repeat testing. In a patient with classic symptoms of hyperglycemia or hyperglycemic crisis, random plasma glucose results greater than or equal to 200 mg/dL meet the criteria for diagnosis of diabetes. Reference: Standards of Medical Care in Diabetes 2016, [place] [employer]. Diabetes Care. 2016.39(Suppl 1). Interpretation and review of laboratory resultsNormalCleveland ClinicPotassium [Moles/Vol]4.4 mmol/L3.7 - 5.1 mmol/LCleveland ClinicProtein [Mass/Vol]6.7 g/dL 6.3 - 8.0 g/dLLocust Hill ClinicSodium [Moles/Vol]138 mmol/L136 - 144 mmol/L [facility] HospitalUrea nitrogen [Mass/Vol]21 mg/dL7 - 21 mg/dLFayette County Memorial HospitalESR Westergren method (Bld) [Velocity]on 39-90-8948XJF (Bld) [Velocity]8 mm/hCleland ClinicInterpretation and review of laboratory results NormalOhioHealth Grady Memorial Hospital-REACTIVE PROTEIN (CRP)on [id number] [Mass/Vol]0.7 mg/dL<0.9 mg/dLLima City Hospital W Auto Differential panel (Bld) on 56-10-3532Xkcokvsvf (Bld) [#/Vol]0.03 10*3/uL<0.11 k/uLJoint Township District Memorial Hospital Basophils/100 WBC (Bld)0.5 %[facility] HospitalDifferential cell count method Nom (Bld)AutoCleveland ClinicEosinophils (Bld) [#/Vol]0.09 10*3/uL<0.46 k/uL [facility] HospitalEosinophils/100 WBC (Bld)1.5 %[facility] HospitalErythrocyte distribution width (RBC) [Ratio]12.8 %11.5 - 15.0 %[facility] HospitalHematocrit (Bld) [Volume fraction]36.3 %36.0 - 46.0 %[facility] HospitalHemoglobin (Bld) [Mass/Vol]12.2 g/dL11.5 - 15.5 g/dLJoint Township District Memorial HospitalImmature granulocytes (Bld) [#/Vol]<0.10 k/uLJoint Township District Memorial HospitalImmature granulocytes/100 WBC (Bld)0.2 % [facility] HospitalLymphocytes (Bld) [#/Vol]1.87 10*3/uL1.00 - 4.00 k/uLJoint Township District Memorial HospitalLymphocytes/100 WBC (Bld)32.0 %[facility] (RBC) [Entitic mass] 30.4 pg26.0 - 34.0 pgCleveland Bagley Medical CenterHC (RBC) [Mass/Vol]33.6 g/dL30.5 - 36.0 g/dLJoint Township District Memorial HospitalMCV (RBC) [Entitic vol]90.5 fL80.0 - 100.0 fLClevelcentral carolina hospital ClinicMonocytes (Bld) [#/Vol]0.78 10*3/uL<0.87 k/uLLocust Hill ClinicMonocytes/100 WBC (Bld)13.4 %[facility] ClinicNeutrophils (Bld) [#/Vol]3.06 10*3/uL1.45 - 7.50 k/uLJoint Township District Memorial HospitalNeutrophils/100 WBC (Bld)52.4 %[facility] HospitalNucleated RBC (Bld) [#/Vol]<0.01 k/uLJoint Township District Memorial HospitalNucleated RBC/100 WBC (Bld) [Ratio] 0.0 /100 WBCJoint Township District Memorial HospitalPlatelet mean volume (Bld) [Entitic vol]10.9 fL9.0 - 12.7 fLClevelcentral carolina hospital ClinicPlatelets (Bld) [#/Vol]222 10*3/uL150 - 400 k/[facility] HospitalRBC (Bld) [#/Vol]4.01 10*6/uL3.90 - 5.20 m/[facility] HospitalWBC (Bld) [#/Vol]5.84 10*3/uL3.70 - 11.00 k/[facility] HospitalComprehensive metabolic 2000 panelon [id number] [Mass/Vol]4.1 g/dL3.9 - 4.9 g/dLLocust Hill ClinicALP [Catalytic activity/Vol]61 U/L34 - 123 U/LCleveland ClinicALT [Catalytic activity/Vol]21 U/L7 - 38 U/LCleveland ClinicAnion gap [Moles/Vol]12 mmol/L9 - 18 mmol/LCleveland ClinicAST [Catalytic activity/Vol]24 U/L13 - 35 U/LCleveland ClinicBilirubin [Mass/Vol]0.4 mg/dL0.2 - 1.3 mg/dLLocust Hill ClinicCalcium [Mass/Vol]9.0 mg/dL8.5 - 10.2 mg/dLJoint Township District Memorial HospitalChloride [Moles/Vol]103 mmol/L97 - 105 mmol/LCohiohealth dublin methodist hospitaland ClinicCO2 [Moles/Vol]25 mmol/L22 - 30 mmol/L [facility] HospitalCreatinine [Mass/Vol]0.90 mg/dL0.58 - 0.96 mg/dLJoint Township District Memorial Hospital Estimated Glomerular Filtration Rate72 mL/min/1.73m>=60 mL/min/1.73mCleveland ClinicGlucose [Mass/Vol]105 mg/eOHsuw45 - 99 mg/dLJoint Township District Memorial HospitalPotassium [Moles/Vol]3.8 mmol/L3.7 - 5.1 mmol/LCleveland ClinicProtein [Mass/Vol]6.7 g/dL 6.3 - 8.0 g/dLGuernsey Memorial Hospitalodium [Moles/Vol]140 mmol/L136 - 144 mmol/L [facility] HospitalUrea nitrogen [Mass/Vol]17 mg/dL7 - 21 mg/dLJoint Township District Memorial HospitalESR Westergren method (Bld) [Velocity]on 97-86-3415AVF (Bld) [Velocity]9 mm/h0 - 20 mm/hrJoint Township District Memorial HospitalXR KNEE RIGHT 3 VIEWSon 05-06-2023 Interpreted By: Rodney Lamb, STUDY: XR KNEE RIGHT 3 VIEWS; ; 05/06/2023 9:01 am INDICATION: Signs/Symptoms:Pain. ACCESSION NUMBER(S): [id number] ORDERING CLINICIAN: RODNEY LAMB FINDINGS: Three views of the knee show status post joint replacement in good alignment. There are no signs of fracture or dislocation. No other bony abnormalities Signed by: Rodney Lamb 05/06/2023 9:07 AM Dictation workstation: [id number], Radiologist, - 05/07/2023 Interpreted By: Rodney Lamb, STUDY: XR KNEE RIGHT 3 VIEWS; ; 05/06/2023 9:01 am INDICATION: Signs/Symptoms:Pain. ACCESSION NUMBER(S): [id number] ORDERING CLINICIAN: RODNEY LAMB FINDINGS: Three views of the knee show status post joint replacement in good alignment. There are no signs of fracture or dislocation. No other bony abnormalities Signed by: Rodney Lamb 05/06/2023 9:07 AM Dictation workstation: [id number] [facility] HealthcareXR KNEE RIGHT 3 VIEWSInterpreted By: Rodney Lamb, STUDY: XR KNEE RIGHT 3 VIEWS; ; 05/06/2023 9:01 am INDICATION: Signs/Symptoms:Pain. ACCESSION NUMBER(S): [id number] ORDERING CLINICIAN: RODNEY LAMB FINDINGS: Three views of the knee show status post joint replacement in good alignment. There are no signs of fracture or dislocation. No other bony abnormalities Signed by: Rodney Lamb 05/06/2023 9:07 AM Dictation workstation: [id number] Hospitals Ambulatory Radiology Study observation (narrative)[facility] HospitalXR KNEE RIGHT 3 VIEWS Ordered By: Radiologist Radiology on 01-71-4830AJZWEllett Memorial Hospital Work Phone: XR Knee - right 3 Viewson [id number] By: Rodney Lamb, STUDY: XR KNEE RIGHT 3 VIEWS; ; 05/06/2023 9:01 am INDICATION: Signs/Symptoms:Pain. ACCESSION NUMBER(S): [id number] ORDERING CLINICIAN: RODNEY LAMB FINDINGS: Three views of the knee show status post joint replacement in good alignment. There are no signs of fracture or dislocation. No other bony abnormalities Signed by: Rodney Lamb 05/06/2023 9:07 AM Dictation workstation: [id number] MMRodney Gruber MD - 05/06/2023 Interpreted By: Rodney Lamb, STUDY: XR KNEE RIGHT 3 VIEWS; ; 05/06/2023 9:01 am INDICATION: Signs/Symptoms:Pain. ACCESSION NUMBER(S): [id number] ORDERING CLINICIAN: RODNEY LAMB FINDINGS: Three views of the knee show status post joint replacement in good alignment. There are no signs of fracture or dislocation. No other bony abnormalities Signed by: Rodney Lamb 05/06/2023 9:07 AM Dictation workstation: [id number] [facility] Work Phone: [facility] Work Phone: Radiology Study observation (narrative)[facility] Work Phone: [employer] [Mass/mass] in StoolOrdered By: Rex Mckee on 97-78-4197Pbtvpzzmzguf (Stl) [Mass/Mass]38 ug/g0-120[facility], IncComment on above:Concentration Interpretation Follow-Up< 5 - 50 ug/g Normal None>50 -120 ug/g Borderline Re-evaluate in 4-6 weeks >120 ug/g Abnormal Repeat as clinically indicatedPerformed at: - [facility] [id number] [place], [place] [id number] Director: Aston Combs MD, Phone: [phone] CARDIAC CALCIUM SCORINGon 18-08-0865Hgywnobw by Radiology, RadiologistMD on 04/06/2023 8:47 AM EST Interpreted By: Tj Krishnamurthy, ADDENDUM: Technical: The following is to serve as an over-read for an unenhanced cardiac CT, to evaluate the extra vascular structures. Contiguous unenhanced CT sections are performed from level the kim to the upper abdomen. Findings: The visualized portions of both lungs are clear. There is no sign of pathologic lymph node enlargement. There is no pericardial or pleural effusion. Images through the upper abdomen are unremarkable. The visualized osseous and soft tissue structures of the chest wall are intact. Impression: The extra vascular structures have an unremarkable CT appearance. Signed by: Tj Krishnamurthy 04/06/2023 8:47 AM -------- ORIGINAL REPORT -------- Dictation workstation: [id number] Interpreted By: Tj Sosa, STUDY: CT CARDIAC SCORING WO IV CONTRAST; 04/05/2023 10:03 am INDICATION: Signs/Symptoms:hypertension, palps, post menopausal. COMPARISON: None. ACCESSION NUMBER(S): [id number] ORDERING CLINICIAN: RENA BECERRA TECHNIQUE: Using prospective ECG gating, CT scan of the coronary arteries was performed without intravenous contrast. Coronary calcium scoring was performed according to the method of Agatston. CT Dose-Length Product (DLP): 62.5 mGy*cm CT Dose Reduction Employed: Yes, prospective gating, iterative reconstruction. FINDINGS: The score and distribution of calcium in the coronary arteries is as follows: LM 0 LAD 0 LCx 0 RCA 0 Total 0 The visualized mid/lower ascending thoracic aorta measures 3.5 cm in diameter. The heart is normal in size. No pericardial effusion is present. IMPRESSION: 1. Coronary artery calcium score of 0*. *Coronary artery calcium scoring may be helpful in predicting the risk for future coronary heart disease events. According to the [employer] Clinical Expert Consensus Task Force, such testing provides important prognostic information in patients with more than one coronary heart disease risk factor. The coronary artery calcium score correlates with the annual risk of a non-fatal myocardial infarction or coronary heart disease . Coronary artery score Annual Risk 0-99 0.4% 100-399 1.3% >400 2.4% These three breakpoints correspond to lower, intermediate and high risk states for future coronary events. Such information should be used, along with appropriate clinical judgment, to make decisions regarding the intensity of risk factor management strategies to treat blood lipids and to modify other non-lipid coronary risk factors. Reference: Ryan P et al. Circulation. 2007; 115:402-426 Reading [facility]: Dr. Tj Sosa, Date: 04/06/2023 8:39 am Signed by: Tj Sosa 04/06/2023 8:39 AM Dictation workstation: [id number] Interpreted By: Tj Sosa, STUDY: CT CARDIAC SCORING WO IV CONTRAST; 04/05/2023 10:03 am INDICATION: Signs/Symptoms:hypertension, palps, post menopausal. COMPARISON: None. ACCESSION NUMBER(S): [id number] ORDERING CLINICIAN: RENA BECERRA TECHNIQUE: Using prospective ECG gating, CT scan of the coronary arteries was performed without intravenous contrast. Coronary calcium scoring was performed according to the method of Agatston. CT Dose-Length Product (DLP): 62.5 mGy*cm CT Dose Reduction Employed: Yes, prospective gating, iterative reconstruction. FINDINGS: The score and distribution of calcium in the coronary arteries is as follows: LM 0 LAD 0 LCx 0 RCA 0 Total 0 The visualized mid/lower ascending thoracic aorta measures 3.5 cm in diameter. The heart is normal in size. No pericardial effusion is present. IMPRESSION: 1. Coronary artery calcium score of 0*. *Coronary artery calcium scoring may be helpful in predicting the risk for future coronary heart disease events. According to the [employer] Clinical Expert Consensus Task Force, such testing provides important prognostic information in patients with more than one coronary heart disease risk factor. The coronary artery calcium score correlates with the annual risk of a non-fatal myocardial infarction or coronary heart disease . Coronary artery score Annual Risk 0-99 0.4% 100-399 1.3% >400 2.4% These three breakpoints correspond to lower, intermediate and high risk states for future coronary events. Such information should be used, along with appropriate clinical judgment, to make decisions regarding the intensity of risk factor management strategies to treat blood lipids and to modify other non-lipid coronary risk factors. Reference: Ledbetter P et al. Circulation. 2007; 115:402-426 Reading [facility]: Dr. Tj Sosa, Date: 04/06/2023 8:39 am Signed by: Tj Sosa 04/06/2023 8:39 AM Dictation workstation: [id number], Radiologist, - 04/06/2023 Interpreted By: Tj Sosa, STUDY: CT CARDIAC SCORING WO IV CONTRAST; 04/05/2023 10:03 am INDICATION: Signs/Symptoms:hypertension, palps, post menopausal. COMPARISON: None. ACCESSION NUMBER(S): [id number] ORDERING CLINICIAN: RENA BECERRA TECHNIQUE: Using prospective ECG gating, CT scan of the coronary arteries was performed without intravenous contrast. Coronary calcium scoring was performed according to the method of Agatston. CT Dose-Length Product (DLP): 62.5 mGy*cm CT Dose Reduction Employed: Yes, prospective gating, iterative reconstruction. FINDINGS: The score and distribution of calcium in the coronary arteries is as follows: LM 0 LAD 0 LCx 0 RCA 0 Total 0 The visualized mid/lower ascending thoracic aorta measures 3.5 cm in diameter. The heart is normal in size. No pericardial effusion is present. IMPRESSION: 1. Coronary artery calcium score of 0*. *Coronary artery calcium scoring may be helpful in predicting the risk for future coronary heart disease events. According to the [employer] Clinical Expert Consensus Task Force, such testing provides important prognostic information in patients with more than one coronary heart disease risk factor. The coronary artery calcium score correlates with the annual risk of a non-fatal myocardial infarction or coronary heart disease . Coronary artery score Annual Risk 0-99 0.4% 100-399 1.3% >400 2.4% These three breakpoints correspond to lower, intermediate and high risk states for future coronary events. Such information should be used, along with appropriate clinical judgment, to make decisions regarding the intensity of risk factor management strategies to treat blood lipids and to modify other non-lipid coronary risk factors. Reference: Ryan P et al. Circulation. 2007; 115:402-426 Reading [facility]: Dr. Tj Sosa, Date: 04/06/2023 8:39 am Signed by: Tj Sosa 04/06/2023 8:39 AM Dictation workstation: [id number] [facility] CARDIAC CALCIUM SCORINGOrdered By: Radiologist Radiology on [id number] [id number] Work Phone: ct CARDIAC CALCIUM SCORINGon [id number] Study observation (narrative)[facility] HospitalCNOVon [id number] Visit (AGPOB3) CATY HILLS ([id number]) 1960 F Date Time Provider Department 03/02/23 10:30 AM OLEG MALLOY AGPOB3 During your visit today, we recorded the following information about you: Respiration Weight Height 20/minute 109.6 kg 1.702 m Oleg Malloy MD 03/02/2023 12:45 PM Signed Hand Surgery New Pt Note HPI: 62-year-old female, 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, 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 Having base of thumb pain for years, right greater than left She has tried a brace in the past which has helped Number tried any injections I most of her pain when trying to open jars and using thumb Otherwise healthy No diabetes, no smoking She does not have RA and she is on Plaquenil and a biologic DMARD PMH: PAST MEDICAL HISTORY Diagnosis Date Anxiety Class 2 obesity in adult Heart palpitations Hypertension Hypokalemia NONE Rheumatoid arthritis (HCC) Seizure-like activity (HCC) SVT (supraventricular tachycardia) Traumatic brain injury (HCC) slipped on ice and hit head on concrete and passed out for 2 min in 2009 ALLERGIES No Known Allergies Social History Tobacco Use Smoking status: Former Packs/day: 0.50 Years: 20.00 Additional pack years: 0.00 Total pack years: 10.00 Types: Cigarettes Quit date: 09/19/2000 Years since quittin.4 Smokeless tobacco: Never Vaping Use Vaping Use: Never used Substance Use Topics Alcohol use: Yes Comment: social Drug use: No Review of Systems: 12 point review of systems was performed and found to be non-contributory Exam: Right hand Skin intact Full finger flexion/extension, FPL/EPL intact SILT m/r/u Fingers wwp Positive shoulder sign TTP over the CMC Linesman grind test Pain w/ Abduction and extension 30 degrees MCP hyperextension Minimal tenderness over the radial styloid No tenderness over the A1 katina of the thumb, no obvious clicking or locking w/ IP ROM Imaging: XR bilateral hands Right greater than left moderate to severe CMC degen Assessment/Plan: (M18.10) Arthritis of carpometacarpal (CMC) joint of thumb (primary encounter diagnosis) I reviewed the x-rays with the patient She has right greater than left classic CMC arthritis We discussed treatment options including push MetaGrip braces, steroid injection, surgery At this point she would like to get 2 new push MetaGrip braces, OT referral placed She would like to try an injection today which I think is a reasonable starting point We will see how she responds to the injection and move forward from there RTC 6 weeks I reviewed the risks of steroid injection including fat atrophy, skin depigmentation, a spike in blood glucose, and possibly a transient increase in pain over the next 24 hrs. I told the pt that it may take several days for the full effects of the steroid to kick in. The pt expressed understanding of the risks and benefits and wished to proceed. Verbal consent was obtained. Injection was successfully delivered. The pt tolerated the procedure well without any immediate complications. Small Joint Arthro/Inj: R thumb CMC Informed Consent Consent Obtained: Verbal Bradley Protocol A moment to CARE was completed. SIGN IN TIME OUT 03/02/2023 12:44 PM The procedure site was prepped in the usual sterile fashion. Outcome: tolerated well, no immediate complications Post-injection instructions were reviewed with the patient and the patient voiced understanding of these instructions. Medical Decision Making: Problems: Moderate: 1+ chronic illnesses with change Data: Unique test result(s) reviewed: 1 Risk: Moderate: Drug management Medical Decision Making Level: 4 - Moderate Oleg Malloy MD Hand Surgery Referring Provider: BENJI KIMBLE [[id number]] Allergies As of Date: 03/02/2023 (No Known Allergies) Date Reviewed: 03/02/2023 Reviewed by: Oleg Malloy MD - Fully Assessed Reason for Visit: New [763129] Pain [78] Swelling [205] New [413909] Pain [78] Swelling [205] Primary Visit Diagnosis:Arthritis of carpometacarpal (CMC) joint of thumb [M18.10] Order(s):Small Joint Arthro/Inj: R thumb CMC [AKO359] Order #: [id number] CONSULT TO OCCUPATIONAL THERAPY/HAND THERAPY (AG) [4510926] Order #: [id number]: 1 Prescriptions as of 03/02/2023 - RINVOQ Tb24 tablet Take 1 tablet (15 mg) by mouth once daily. - metoprolol tartrate, short acting, (LOPRESSOR) 50 mg tablet Take 25 mg by mouth twice daily. - potassium chloride 20 mEq TbER Take 20 mEq by mouth once daily. - docusate sodium (COLACE) 100 mg capsule Take 1 capsule by mouth two times a day as needed for constipation. - multivitamin tablet Take 1 tablet by mouth once daily. - ascorbic acid, vitamin C, (VITAMIN C) 500 mg tablet Take 1 tablet by mouth two times a day with meals. - hydrOXYchloro (more content not included)...[facility] CNTHERAPYon [id number]/PT/Speech Visit (JEFFOCT) CATY HILLS ([id number]) 1960 F Date Time Provider Department 03/02/23 8:00 AM DANIEL MILES Date Time Provider Department Center 03/02/2023 8:00 AM [id number] MILESYARED CALEB Reason for Visit: OT EVAL [678] OT Discharge [750] Primary Visit Diagnosis:Bilateral thumb pain [M79.644, M79.645] Allergies As of Date: 03/02/2023 (No Known Allergies) Date Reviewed: 03/02/2023 Reviewed by: Oleg Malloy MD - Fully Assessed Prescriptions as of 03/02/2023 - RINVOQ Tb24 tablet Take 1 tablet (15 mg) by mouth once daily. - metoprolol tartrate, short acting, (LOPRESSOR) 50 mg tablet Take 25 mg by mouth twice daily. - potassium chloride 20 mEq TbER Take 20 mEq by mouth once daily. - docusate sodium (COLACE) 100 mg capsule Take 1 capsule by mouth two times a day as needed for constipation. - multivitamin tablet Take 1 tablet by mouth once daily. - ascorbic acid, vitamin C, (VITAMIN C) 500 mg tablet Take 1 tablet by mouth two times a day with meals. - hydrOXYchloroQUINE (PLAQUENIL) 200 mg tablet Take 1 tablet by mouth twice daily. - Valsartan-hydroCHLOROthiazide 160-25 mg per tablet Take 1 tablet by mouth once daily. - escitalopram oxalate (LEXAPRO) 20 mg tablet Take 20 mg by mouth daily at bedtime. - QUEtiapine (SEROQUEL) 25 mg tablet Take 25 mg by mouth at bedtime as needed. Take 1-2 tabs as needed for sleep - plecanatide (TRULANCE) 3 mg tablet Take 3 mg by mouth daily at bedtime. - Tuagesmtnugls-Tnutbzwr-Mbxyqj (MULTIVITAMIN 50 PLUS) tab Take 1 tablet by mouth once daily. - pantoprazole DR (PROTONIX) 40 mg tablet Take 40 mg by mouth once daily. Meds Comments as of 12/30/2018: Pt sts does not have med list [facility] HospitalTHERAPY NTon [id number] NTHNO ID: [id number] Author: Daniel Miles OT/L Service: ? Author Type: Occupational Therapist Type: Therapy (PT/OT/Speech/Resp) Filed: 03/06/2023 8:37 AM Note Text: Program_ID:[id number] Access Code: [email or web address] URL: [email or web address]/ Date: 03-02-2023 Prepared By: Daniel Miles Program Notes Exercises - Thumb Strengthening Stabilization CMC - 1 x daily - 7 x weekly - 3 - 10 - Thumb Stabilization: C Position Isometric Around Ball - 1 x daily - 7 x weekly - 3 - 10 - First Dorsal Interosseous Isotonic Strengthening With Rubber Band Resistance - 1 x daily - 7 x weekly - 3 - 10NoPenobscot Valley HospitalXR HAND GENERAL 3V PA/LAT/OBL BILATERALon [id number] ClinicUS Heart TransthoracicOrdered By: Rodney Unger on [id number] A4C EF80.0UnPark[facility] Work Phone: [facility] Work Phone: US Heart Transthoracicon 01-31-[address], [place] [address] TRANSTHORACIC ECHOCARDIOGRAM REPORT Patient Name: CATY Escobar Physician: [id number] Rodney Unger MD Study Date: 01/29/2023 Ordering Provider: [id number] RENA BECERRA MRN/PID: [id number] Fellow: Nurse: Date of /Age: 1 1960 / 62 years Bible Teacher: Madonna Becerra RDCS, REJI, RVT Gender: F Additional Staff: Height: 170.18 cm Admit Date: Weight: 101.61 kg Admission Status: Outpatient BSA: 2.12 m2 Department Location: [facility] Study Type: TRANSTHORACIC ECHO (TTE) COMPLETE Diagnosis/ICD: Shortness of breath-R06.02; Syncope-R55; Palpitations-R00.2 Indication: SOB, Palpitations, Syncope, HTN CPT Codes: Echo Complete w Full Doppler-77570 Study Detail: The following Echo studies were performed: 2D, M-Mode, Doppler and color flow. PHYSICIAN INTERPRETATION: Left Ventricle: Left ventricular systolic function is normal, with an estimated ejection fraction of 70%. There are no regional wall motion abnormalities. The left ventricular cavity size is normal. Spectral Doppler shows a normal pattern of left ventricular diastolic filling. Left Atrium: The left atrium is normal in size. Right Ventricle: The right ventricle is normal in size. There is normal right ventricular global systolic function. Right Atrium: The right atrium is normal in size. Aortic Valve: The aortic valve is trileaflet. There is evidence of mildly elevated transaortic gradients consistent with sclerosis of the aortic valve. There is no evidence of aortic valve regurgitation. The peak instantaneous gradient of the aortic valve is 13.0 mmHg. The mean gradient of the aortic valve is 7.0 mmHg. Mitral Valve: The mitral valve is normal in structure. There is trace mitral valve regurgitation. Tricuspid Valve: The tricuspid valve is structurally normal. There is trace tricuspid regurgitation. Pulmonic Valve: The pulmonic valve is not well visualized. There is no indication of pulmonic valveregurgitation. Pericardium: There is no pericardial effusion noted. Aorta: The aortic root is normal. CONCLUSIONS: 1. Left ventricular systolic function is normal with a 70% estimated ejection fraction. 2. Aortic valve sclerosis. QUANTITATIVE DATA SUMMARY: 2D MEASUREMENTS: Normal Ranges: Ao Root d: 3.00 cm (2.0-3.7cm) LAs: 3.30 cm (2.7-4.0cm) RVIDd: 2.90 cm (0.9-3.6cm) IVSd: 1.10 cm (0.6-1.1cm) LVPWd: 1.10 cm (0.6-1.1cm) LVIDd: 3.90 cm (3.9-5.9cm) LVIDs: 2.40 cm LV Mass Index: 66.0 g/m2 LV % FS 38.5 % AORTA MEASUREMENTS: Normal Ranges: Asc Ao, d: 3.20 cm (2.1-3.4cm) LV SYSTOLIC FUNCTION BY 2D PLANIMETRY (MOD): Normal Ranges: EF-A4C View: 80.0 % (>=55%) LV DIASTOLIC FUNCTION: Normal Ranges: MV Peak E: 1.01 m/s (0.7-1.2 m/s) MV Peak A: 0.95 m/s (0.42-0.7 m/s) E/A Ratio: 1.07 (1.0-2.2) MV lateral e' 0.14 m/s MV medial e' 0.09 m/s E/e' Ratio: 7.20 (<8.0) MITRAL VALVE: Normal Ranges: MV DT: 246 msec (150-240msec) MITRAL INSUFFICIENCY: Normal Ranges: MR Vmax: 502.00 cm/s AORTIC VALVE: Normal Ranges: AoV Vmax: 1.80 m/s (<=1.7m/s) AoV Peak P.0 mmHg (<20mmHg) AoV Mean P.0 mmHg (1.7-11.5mmHg) LVOT Max Alonso: 1.10 m/s (<=1.1m/s) AoV VTI: 42.30 cm (18-25cm) LVOT VTI: 27.00 cm LVOT Diameter: 2.00 cm (1.8-2.4cm) AoV Area, VTI: 2.01 cm2 (2.5-5.5cm2) AoV Area,Vmax: 1.92 cm2 (2.5-4.5cm2) AoV Dimensionless Index: 0.64 TRICUSPID VALVE/RVSP: Normal Ranges: Peak TR Velocity: 2.57 m/s RV Syst Pressure: 29.4 mmHg (< 30mmHg) PULMONIC VALVE: Normal Ranges: PV Max Alonso: 0.7 m/s (0.6-0.9m/s) PV Max P.1 mmHg [id number] Rodney Unger MD Electronically signed on 01/31/2023 at 9:05:35 AM Final Rodney Ross MD - 01/31/[address], [address] [place] [address] TRANSTHORACIC ECHOCARDIOGRAM REPORT Patient Name: CATY HILLS Reading Physician: [id number] Rodney Unger MD Study Date: 01/29/2023 Ordering Provider: [id number] RENA BECERRA MRN/PID: [id number] Fellow: Nurse: Date of /Age: 1 1960 / 62 years Bible Teacher: Madonna Becerra RDCS, RDMS, RVT Gender: F Additional Staff: Height: 170.18 cm Admit Date: Weight: 101.61 kg Admission Status: Outpatient BSA: 2.12 m2 Department Location: [facility] Study Type: TRANSTHORACIC ECHO (TTE) COMPLETE Diagnosis/ICD: Shortness of breath-R06.02; Syncope-R55; Palpitations-R00.2 Indication: SOB, Palpitations, Syncope, HTN CPT Codes: Echo Complete w Full Doppler-22677 Study Detail: The following Echo studies were performed: 2D, M-Mode, Doppler and color flow. PHYSICIAN INTERPRETATION: Left Ventricle: Left ventricular systolic function is normal, with an estimated ejection fraction of 70%. There are no regional wall motion abnormalities. The left ventricular cavity size is normal. Spectral Doppler shows a normal pattern of left ventricular diastolic filling. Left Atrium: The left atrium is normal in size. Right Ventricle: The right ventricle is normal in size. There is normal right ventricular global systolic function. Right Atrium: The right atrium is normal in size. Aortic Valve: The aortic valve is trileaflet. There is evidence of mildly elevated transaortic gradients consistent with sclerosis of the aortic valve. There is no evidence of aortic valve regurgitation. The peak instantaneous gradient of the aortic valve is 13.0 mmHg. The mean gradient of the aortic valve is 7.0 mmHg. Mitral Valve: The mitral valve is normal in structure. There is trace mitral valve regurgitation. Tricuspid Valve: The tricuspid valve is structurally normal. There is trace tricuspid regurgitation. Pulmonic Valve: The pulmonic valve is not well visualized. There is no indication of pulmonic valveregurgitation. Pericardium: There is no pericardial effusion noted. Aorta: The aortic root is normal. CONCLUSIONS: 1. Left ventricular systolic function is normal with a 70% estimated ejection fraction. 2. Aortic valve sclerosis. QUANTITATIVE DATA SUMMARY: 2D MEASUREMENTS: Normal Ranges: Ao Root d: 3.00 cm (2.0-3.7cm) LAs: 3.30 cm (2.7-4.0cm) RVIDd: 2.90 cm (0.9-3.6cm) IVSd: 1.10 cm (0.6-1.1cm) LVPWd: 1.10 cm (0.6-1.1cm) LVIDd: 3.90 cm (3.9-5.9cm) LVIDs: 2.40 cm LV Mass Index: 66.0 g/m2 LV % FS 38.5 % AORTA MEASUREMENTS: Normal Ranges: Asc Ao, d: 3.20 cm (2.1-3.4cm) LV SYSTOLIC FUNCTION BY 2D PLANIMETRY (MOD): Normal Ranges: EF-A4C View: 80.0 % (>=55%) LV DIASTOLIC FUNCTION: Normal Ranges: MV Peak E: 1.01 m/s (0.7-1.2 m/s) MV Peak A: 0.95 m/s (0.42-0.7 m/s) E/A Ratio: 1.07 (1.0-2.2) MV lateral e' 0.14 m/s MV medial e' 0.09 m/s E/e' Ratio: 7.20 (<8.0) MITRAL VALVE: Normal Ranges: MV DT: 246 msec (150-240msec) MITRAL INSUFFICIENCY: Normal Ranges: MR Vmax: 502.00 cm/s AORTIC VALVE: Normal Ranges: AoV Vmax: 1.80 m/s (<=1.7m/s) AoV Peak P.0 mmHg (<20mmHg) AoV Mean P.0 mmHg (1.7-11.5mmHg) LVOT Max Alonso: 1.10 m/s (<=1.1m/s) AoV VTI: 42.30 cm (18-25cm) LVOT VTI: 27.00 cm LVOT Diameter: 2.00 cm (1.8-2.4cm) AoV Area, VTI: 2.01 cm2 (2.5-5.5cm2) AoV Area,Vmax: 1.92 cm2 (2.5-4.5cm2) AoV Dimensionless Index: 0.64 TRICUSPID VALVE/RVSP: Normal Ranges: Peak TR Velocity: 2.57 m/s RV Syst Pressure: 29.4 mmHg (< 30mmHg) PULMONIC VALVE: Normal Ranges: PV Max Alonso: 0.7 m/s (0.6-0.9m/s) PV Max P.1 mmHg [id number] Rodney Unger MD Electronically signed on 01/31/2023 at 9:05:35 AM Final [facility] Work Phone: anes POSTPROC EVALon [id number] POSTPROC EVALHNO ID: [id number] Author: Balta Welch MD Service: Anesthesiology Author Type: Anesthesiologist Type: Anesthesia Postprocedure Evaluation Filed: 01/02/2023 12:42 PM Note Text: POST ANESTHESIA EVALUATION NOTE : 1960 Procedure Summary Date: 12/30/22 Room / Location: [place] [address] / OR Anesthesia Start: 1306 Anesthesia Stop: 1641 Procedures: SUTURE OF HAMSTRING MUSCLE RUPTURE PRIMARY (Left: Leg) NEUROPLASTY , MAJOR PERIPHERAL NERVE, LEG BRACHIAL PLEXUS (Left: Leg) Diagnosis: Left proximal hamstring tendon rupture, initial encounter Osteopenia determined by x-ray (Left proximal hamstring tendon rupture, initial encounter [S76.312A]Osteopenia determined by x-ray [M85.80]) Surgeons: Zoey Gonzalez MD Responsible Provider: Balta Welch MD Anesthesia Type: general ASA Status: 3 Anesthesia Type: general Airway Type: ETT Last Vitals Vitals Value Taken Time BP 112/60 12/30/22 1832 Temp 36.7 ?C (98.1 ?F) 12/30/22 1832 Pulse 71 12/30/22 1832 Resp 16 12/30/22 1832 SpO2 94 % 12/30/22 1832 Post Anesthesia Patient Status Patient Evaluation: PACU. Anticipated Disposition: inpatient floor planned admission. Neurological Status: aware and responsive. Pulmonary Status: breathing comfortably on room air Airway Control: returned to baseline unsupported. Cardiovascular Status: stable. Pain Management: clinically adequate Postoperative Hydration: acceptable. Intraoperative Events: no significant anesthesia events Post Operative Nausea/Vomiting Status: no significant post operative nausea or vomiting Recommendation: continue current plan of care. Anesthesia Observations No Documentation SIGNATURE: Balta Welch MD PATIENT NAME: Caty Hills DATE: January 02, 2023 TIME: 12:42 PM CSN: [id number] HospitalANES PRE-OPon [id number] PRE-OPHNO ID: [id number] Author: Balta Welch MD Service: Anesthesiology Author Type: Anesthesiologist Type: Anesthesia Preprocedure Evaluation Filed: 12/30/2022 8:43 AM Note Text: ANESTHESIOLOGY DAY OF SURGERY NOTE : 1960 Procedure Information Date/Time: 12/30/22 1020 Procedures: SUTURE OF HAMSTRING MUSCLE RUPTURE PRIMARY (Left) - Left Proximal Hamstring Repair, Neurolusos Left Sciatic Nerve W/Arthrex Hip Speedbridge Implant System. W/ Peek Swivelock Anchors. Would also like Amniox Clarixcord 1K 4x3cm, to promote tendon healing and minimize scar. NEUROPLASTY , MAJOR PERIPHERAL NERVE, LEG BRACHIAL PLEXUS (Left) Location: [facility] OR10 / [facility] OR Surgeons: Zoey Gonzalez MD Estimated body mass index is 35.91 kg/m? as calculated from the following: Height as of 04/06/22: 170.2 cm (5' 7 ). Weight as of 04/06/22: 104 kg (229 lb 4.8 oz). Most recent hematocrit and potassium results: Hematocrit 34.8 11/08/2022 Potassium 4.0 11/08/2022 Relevant Problems CARDIO (+) Hypertension NEURO-PSYCH (+) H/O iritis Other (+) Rheumatoid arthritis involving multiple sites with positive rheumatoid factor (HCC) I - PHYSICAL EVALUATION AIRWAY Patient intubated: No. Tracheostomy tube not present Mallampati: II. TM distance: >3 FB. Neck ROM: full ROM without neurological symptoms. Mouth opening: adequate. Short neck: no. Thick neck: yes DENTAL Dental findings: teeth intact. II - ANESTHESIA PLAN ASA Score: 3 Anesthetic Plan: general Airway type: ETT NPO Status: adequate Beta Angie Monitoring Plan Monitoring plan: standard ASA. Post Procedure Analgesic Plan Postoperative analgesic plan: parenteral or oral opioids and per surgical service. Informed Consent Anesthetic risks, benefits, alternatives, personnel and consent discussed: yes. Patient / Responsible Green Party agrees to proceed: yes Patient / Surrogate agrees to blood products: blood products not planned No vitals data found for the desired time range. Facility-Administered Medications as of 12/30/2022 Medication Dose Route Frequency - midazolam 2 mg injection (VERSED) 2 mg INTRAVENOUS ONCE - lidocaine (PF) 10 mg/mL (1 %) 1-2 mg injection (XYLOCAINE) 0.1-0.2 mL INTRADERMAL PRN - lactated ringers iv infusion 5-30 mL/hr INTRAVENOUS CONTINUOUS - NaCl 0.9% iv flush bag 20 mL INTRAVENOUS PRN - ceFAZolin iv piggyback 2 g in D5W (iso-osmotic) 100 mL (ANCEF) 2 g INTRAVENOUS Pre-Op Once Outpatient Medications as of 12/30/2022 Medication Sig - metoprolol tartrate, short acting, (LOPRESSOR) 50 mg tablet Take 25 mg by mouth twice daily. - potassium chloride 20 mEq TbER Take 20 mEq by mouth once daily. - hydrOXYchloroQUINE (PLAQUENIL) 200 mg tablet Take 1 tablet by mouth twice daily. - Valsartan-hydroCHLOROthiazide 160-25 mg per tablet Take 1 tablet by mouth once daily. - escitalopram oxalate (LEXAPRO) 20 mg tablet Take 20 mg by mouth daily at bedtime. - plecanatide (TRULANCE) 3 mg tablet Take 3 mg by mouth daily at bedtime. - pantoprazole DR (PROTONIX) 40 mg tablet Take 40 mg by mouth once daily. - upadacitinib (RINVOQ) Tb24 tablet Take 1 tablet (15 mg) by mouth once daily. Swallow whole; DO NOT crush, chew, or open. - QUEtiapine (SEROQUEL) 25 mg tablet Take 25 mg by mouth at bedtime as needed. Take 1-2 tabs as needed for sleep - Xlrtlekzdungt-Nagefmmh-Bccxzn (MULTIVITAMIN 50 PLUS) tab Take 1 tablet by mouth once daily. I have interviewed and examined the patient. I have reviewed the medical record and/or the pre-anesthesia evaluation, pertinent labs, and test results. This contains updated information obtained within 48 hours of Surgery/Procedure. SIGNATURE: Balta Welch MD PATIENT NAME: Caty Hills DATE: December 30, 2022 TIME: 8:43 AM [id number] OPERATIVE NOHNO ID: [id number] Author: Zoey Gonzalez MD Service: Orthopaedic Surgery Author Type: Physician Type: Operative Report Filed: 12/30/2022 6:07 PM Note Text: OPERATIVE / PROCEDURE REPORT LOG ID: [id number] Surgery/Procedure Date: 12/30/2022 Incision/Procedure Start Time: 1:54 PM Incision Close/Procedure End Time: 4:13 PM Surgeon(s)/Proceduralist(s) and Cq Developer(s): Surgeon(s) and Role: * Zoey Gonzalez MD - Primary Physician Cq Developer: Monty Comer PA-C Preoperative Diagnosis: Left proximal hamstring rupture Rheumatoid arthritis Sciatic nerve adhesions Postoperative Diagnosis: Same Procedure Performed: Open left proximal hamstring repair CPT 50162 (modifier 22 for being subacute hamstring repair that required additional time and effort and intensity for tissue mobilization and additional points of fixation for solid repair) Neurolysis sciatic nerve - CPT 73885 Anesthesia: General Complications: None. Preoperative Antibiotics: 2 gram IV Ancef. Implant: Implant Name Type Inv. Item Serial No. Corporate Development Associate Lot No. LRB No. Used Action HIP IMPLANT SYSTEM 4.75MM SPEEDBRIDGE Implant MyCrowd [id number] Left 1 Implanted MATRIX CLARIX AMNIOTIC MEMBRANE UMBILICAL CORD 4X3CM TISSUE ALLOGRAFT - [id number] Graft MATRIX CLARIX AMNIOTIC MEMBRANE UMBILICAL CORD 4X3CM TISSUE ALLOGRAFT [id number] AMNIOX cacaoTV-TISSUE TECH Left 1 Implanted Findings: complete rupture of conjoined tendon (semitendinosus and biceps femoris with 5 cm retraction), possible partial tear of semimembranosus musculotendinous junction was not repairable. Some scarring of sciatic nerve and adhesions noted, so neurolysis performed to untether nerve and restore mobility. Amniotic membrane applied over tendon between nerve to prevent scarring and adhesions. BRIEF HISTORY: Patient is a 62 y.o. female who sustained subacute, traumatic 2-tendon left proximal hamstring rupture involving conjoined tendon of left hamstring about 4 weeks ago, confirmed by MRI and exam. We discussed both nonoperative and operative management. After weighing relative risks and benefits of both options, and given persistent pain and disability she elected to proceed with open repair of left proximal hamstring and possible sciatic neurolysis. We had a detailed discussion of the risks and benefits and convalescence of the procedure including, but not limited to bleeding, infection, nerve damage, blood vessel damage, DVT, PE, wound healing issues, dislocation, need for additional surgery, need for revision surgery, hardware irritation, adverse reaction, anesthetic complications, continued pain, limp, complex regional pain syndrome, numbness, tingling, leg-length discrepancy, position-related pain, ischial pain when sitting, inability to return to preinjury level of function, anesthetic complications, cardiopulmonary complications, other unforeseen complications, even . The patient expressed understanding of these risks and elected to proceed. All questions were answered. Left buttock was marked and written consent obtained. We obtained preop clearances and she was cleared by anesthesia to go forward with surgery. OPERATIVE COURSE: The patient was taken to the operative theater and transferred to the OR table in smooth and stable fashion with all bony prominences padded. After placed under general anesthesia she was turned prone with chest, pelvis, ankles padded with gel roll and arms with foam padding in a neutral position. Head was secured with foam head pillow. A time-out was performed during the confirming the patient's name, medical record number, site of surgery, available implants in the room, allergies, antibiotics and consent. The operative extremity was prepped and draped in the usual sterile fashion making sure to seal off the operative field from the gluteal cleft. Ioban was used. Incision was marked about 10 cm in gluteal crease centered over ischial tuberosity. Using a 10 blade, once through the skin, hemostasis was achieved with Bovie cautery and then we dissected down to the posterior fascia of the inferior border of the gluteus leni and released this with scissors. We retracted the muscle proximally with a large blunt retractor. Then using blunt dissection we created a plane to the ischial tuberosity. Large hematoma was encountered and suctioned. The proximal hamstring tendon sheath was not intact but the origin of semimembranosus was mostly intact. There was some early fibrotic healing tissue and decent sized proximal stump of conjoined tendon and the tear could be palpated 6-7 cm distally. Luckily, we were able to milk the tendon proximally with hip extension and knee flexion and grab with campbell clamp. Before further dissection, we identified the sciatic nerve distally and performed a neurolysis with Metzenbaum scissors. It was slightly scarred/ tethered and there were some promine (more content not included)...NormalEuclid HospitalSURGICAL PATHOLOGYon [id number] REPORTNormalEucldc HospitalComment on above:Order Comment: Specimen Type: TISSUE SPECIMEN Ordering Facility: [facility] Address: [address] [place] [phone] Comment: Surgical Pathology Report Case: [id number] Authorizing Provider: Zoey Gonzalez MD Collected: 12/30/2022 02:08 PM Ordering Location: [facility] Surgical Received: 12/30/2022 05:09 PM Services Pathologist: Fausto Hurt MD Specimen: TENDON/TENDON SHEATH, left hamstring tendon stumpPerformed By: #### S #### [facility] CLIA [id number] [address] [place] [address] OF AMERICACLINICAL HISTORYNormJohnson Memorial Hospital and Home HospitalComment on above:Order Comment: Specimen Type: TISSUE SPECIMEN Ordering Facility: [facility] Address: [address] [place], [place] [phone] Comment: Pre-op diagnosis: Left proximal hamstring tendon rupture, initial encounter [S76.312A]Osteopenia determined by x-ray [M85.80]Performed By: #### S #### [facility] CLIA [id number] [address] [place], [place] [address]FINAL DIAGNOSISNormJohnson Memorial Hospital and Home HospitalComment on above:Order Comment: Specimen Type: TISSUE SPECIMEN Ordering Facility: [facility] Address: [address] [place], [place] [phone] Comment: A. Soft tissue, left hamstring tendon, excision: - Fibrotendinous tissue and skeletal muscle with foreign body giant cell reaction and reactive changes. Performed By: #### S #### [facility] CLIA [id number] [address] [place] [address] PERFORMING LABNormal Beaver Falls HospitalComment on above:Order Comment: Specimen Type: TISSUE SPECIMEN Ordering Facility: [facility] Address: [address] [place] [phone] Comment: Diagnostic interpretation performed at [place] [address] CLIA# [id number] City Secretary: Luis Reyes M.D.Performed By: #### S #### [facility] [place] [id number] [address] [place] [address] [place] OF AMERICAGROSS DESCRIPTIONNormal [facility] 1Comment on above:Order Comment: Specimen Type: TISSUE SPECIMEN Ordering Facility: [facility] Address: [address] [place] [address]Result Comment: A. TENDON/TENDON SHEATH Received in formalin, labeled left hamstring tendon stump are multiple, rubbery, jjnu-byt-mfdl, partially encapsulated portions of tissue, ranging from 1.0 cm to 3.1 cm in greatest dimension and aggregating to 5.0 x 3.0 x 1.5 cm. Sectioning reveals mms-fawsek-xvajh, variegated and hemorrhagic cutsurfaces. Systems Development Consultant sections are submitted in cassette A1. AKA December 31, 2022 10:53 AM Gross examination performed at [place], [place] [address]Performed By: #### S #### [facility] [place] [id number] [address] [place] [address] [facility] AMERICABAGEORGETOWN COMMUNITY [facility] METABOLIC PANELon 94-93-5978Gsrgu gap [Moles/Vol]13 mmol/HVazxsm44 - 20[facility] Comment on above:Performed By: #### BMP #### [facility] [address] [place], [place] [address]Tlbqzpf [Mass/Vol]9.8 mg/dLNormal8.6 - 10.6[facility] CenterComment on above:Performed By: #### BMP #### [facility] [address] [place], [place] [address]Uzfbwhlx [Moles/Vol]102 mmol/CXgrstv24 - 107[facility] CenterComment on above:Performed By: #### BMP #### [facility] [address] [place], [place] [address]Rmbbygfuwd [Mass/Vol]0.73 mg/dLNormal0.50 - 1.05[facility] Medical CenterComment on above:Performed By: #### BMP #### [facility] [address] [place], [place] [address]rQRN FEMALE>90Normal>90[facility] CenterComment on above:Result Comment: CALCULATIONS OF ESTIMATED GFR ARE PERFORMED USING THE 2020 CKD-EPI STUDY REFIT EQUATION WITHOUT THE RACE VARIABLE FOR THE IDMS-TRACEABLE CREATININE METHODS. https://jasn.asnjournals.org/content/early/ASN.7519773327Ditgcnpmz By: #### BMP #### [facility] [address] [place], [place] [address]Xiqdkpj [Mass/Vol]89 mg/lNHmbapr29 - 99[facility] CenterComment on above:Performed By: #### BMP #### [facility] [address] [place], [place] [address]BLD2 (Bld) [Moles/Vol]26 mmol/OVlewmw90 - 32[facility] CenterComment on above:Performed By: #### BMP #### [facility] [address] [place], [place] [address]Acbmthpmc [Moles/Vol]4.4 mmol/LNormal3.5 - 5.3[facility] CenterComment on above:Performed By: #### BMP #### [facility] [address] [place], [place] [address]Aoertj [Moles/Vol]137 mmol/BKrhjgk411 - 145[facility] CenterComment on above:Performed By: #### BMP #### [facility] [address] [place], [place] [address]Mtrf nitrogen [Mass/Vol]25 mg/dLHigh6 - 23[facility] CenterComment on above:Performed By: #### BMP #### [facility] [address] [place], [place] [address]NGR AND DIFFERENTIALon 12-23-2022% AUTOMATED IMMATURE GRAN0.3 %Normal0.0 - 0.9[facility] CenterComment on above:Result Comment: Immature Granulocyte Count (IG) includes promyelocytes, myelocytes and metamyelocytes but does not include bands. Percent differential counts (%) should be interpreted in the context of the absolute cell counts (cells/L).Performed By: #### CBCDF #### [facility] [address] [place], [place] [address]Fponubsod (Bld) [#/Vol]0.05 10*3/uLNormal0.00 - 0.10[facility] CenterComment on above:Performed By: #### CBCDF #### [facility] [address] [place], [place] [address]Jedeiydyu/100 WBC (Bld)0.7 %Normal0.0 - 2.0[facility] CenterComment on above:Performed By: #### CBCDF #### [facility] [address] [place], [place] [address]Wnlvjyzoujv (Bld) [#/Vol]0.08 10*3/uLNormal0.00 - 0.70[facility] CenterComment on above:Performed By: #### CBCDF #### [facility] [address] [place], [place] [address]Mzukyfpwcxa/100 WBC (Bld)1.2 %Normal0.0 - 6.0[facility] CenterComment on above:Performed By: #### CBCDF #### [facility] [address] [place], [place] [address]Slbqxvncmec distribution width (RBC) [Ratio]11.9 %Ajkgoi60.5 - 14.5[facility] CenterComment on above:Performed By: #### CBCDF #### [facility] [address] [place], [place] [address]Cppmnqysqg (Bld) [Volume fraction]36.6 %Aaxghg42.0 - 46.0[facility] CenterComment on above:Performed By: #### CBCDF #### [facility] [address] [place], [place] [address]Ehtfctibhg (Bld) [Mass/Vol]12.5 g/wXIgalje48.0 - 16.0[facility] CenterComment on above:Performed By: #### CBCDF #### [facility] [address] [place], [place] [address]Xyazhrbwwsz (Bld) [#/Vol]3.69 10*3/uLNormal1.20 - 4.80[facility] CenterComment on above:Performed By: #### CBCDF #### [facility] [address] [place], [place] [address]Xzhchogwsxa/100 WBC (Bld)55.3 %Qabscm62.0 - 44.0[facility] CenterComment on above:Performed By: #### CBCDF #### [facility] [address] [place], [place] [address]MEOW (RBC) [Mass/Vol]34.2 g/qFYgtdmk27.0 - 36.0[facility] CenterComment on above:Performed By: #### CBCDF #### [facility] [address] [place], [place] [address]YZF (RBC) [Entitic vol]94 sECfftqr56 - 100[facility] CenterComment on above:Performed By: #### CBCDF #### [facility] [address] [place], [place] [address]Fdgktrehe (Bld) [#/Vol]0.72 10*3/uLNormal0.10 - 1.00[facility] CenterComment on above:Performed By: #### CBCDF #### [facility] [address] [place], [place] [address]Tsoenwpld/100 WBC (Bld)10.8 %Normal2.0 - 10.0[facility] CenterComment on above:Performed By: #### CBCDF #### [facility] [address] [place], [place] [address]Uwktyyklgmo (Bld) [#/Vol]2.11 10*3/uLNormal1.20 - 7.70[facility] CenterComment on above:Performed By: #### CBCDF #### [facility] [address] [place], [place] [address]Dalcdwetlff/100 WBC (Bld)31.7 %Wwfhvc58.0 - 80.0[facility] CenterComment on above:Performed By: #### CBCDF #### [facility] [address] [place], [place] [address]RCSMUAMKL RBC0.0 /100 WBCNormal0.0-0.0[facility] CenterComment on above:Performed By: #### CBCDF #### [facility] [address] [place], [place] [address]Zzszftrhb (Bld) [#/Vol]280 10*3/dZJlosxx860 - 450[facility] CenterComment on above:Performed By: #### CBCDF #### [facility] [address] [place], [place] [address]JWY1.88 x10E12/LLow4.00 - 5.20[facility] Comment on above:Performed By: #### CBCDF #### [facility] [address] [place], [place] [address]KZS (Bld) [#/Vol]6.7 10*3/uLNormal4.4 - 11.3[facility] CenterComment on above:Performed By: #### CBCDF #### [facility] [address] [place], [place] [address]JUESI 2 VIEW PA AND LATon [id number] 2 VIEW PA AND LAT Patient Name: CATY HILLS STUDY: CHEST 2 VIEW PA AND LAT; 12/23/2022 4:02 pm INDICATION: Encounter for other preprocedural examination. COMPARISON: None. ACCESSION NUMBER(S): [id number] ORDERING CLINICIAN: YOANA GASCA FINDINGS: CARDIOMEDIASTINAL SILHOUETTE: Cardiomediastinal silhouette is unchanged. LUNGS: No consolidation, pneumothorax, or effusion. ABDOMEN: No remarkable upper abdominal findings. BONES: No acute osseous changes. Remaining findings appear stable since prior comparison radiograph. IMPRESSION: 1. No evidence of acute cardiopulmonary process. Electronically signed by: Millie QUINTEROSt. Anthony North Health CampusOffice Visit (Cardiology)on 20-03-9120Adcrio-up visitDiagnoses/Problems Assessed Rheumatoid arthritis (714.0) (M06.9) Class 2 obesity with body mass index (BMI) of 35.0 to 35.9 in adult (278.00,V85.35) (E66.9,Z68.35) Former smoker (V15.82) (Z87.891) Syncope (780.2) (R55) SOB (shortness of breath) on exertion (786.05) (R06.02) Palpitations (785.1) (R00.2) Medication course changed (V58.69) (Z79.899) Orders Class 2 obesity with body mass index (BMI) of 35.0 to 35.9 in adult IO EKG Electrocardiogram- 12 Lead; Status:Complete; Done: 20Hga2275 Healthy Weight Tips; Status:Complete; Done: 34Tsb0495 Some eating tips that can help you lose weight.; Status:Complete; Done: 24Qhx5018 Palpitations Start: Metoprolol Succinate ER 50 MG Oral Tablet Extended Release 24 Hour; Take 1 tablet daily Basic Metabolic Panel; Status:Active; Requested for:37Kaj8761; Cardiac Stress Test; Status:Hold For - Scheduling; Requested for:98Yjy9761; Palpitations, SOB (shortness of breath) on exertion, Syncope Echocardiogram; Status:Hold For - Scheduling; Requested for:76Orq9881; Palpitations, Syncope Start: Potassium Chloride ER 20 MEQ Oral Tablet Extended Release (K-Tab); TAKE 2 TABLET Daily IO Holter Monitor up to 48 Hrs; Status:Active - Perform Order; Requested for:23Xju4873; SocHx: Former smoker Tobacco Use Screening; Status:Complete; Done: 11Qfy6369 Patient Instructions Please bring all medicines, vitamins, and herbal supplements with you when you come to the office. Prescriptions will not be filled unless you are compliant with your follow up appointments or have a follow up appointment scheduled as per instruction of your physician. Refills should be requested at the time of your visit. Follow up after testing completed Chief Complaint DRAKE ANGINA PALP,TACHY. History of Present Illness This 62-year-old is new to this provider. She is being seen in cardiology consultation at the request of Dr. Juan regarding chest discomfort, palpitations and tachycardia. Cardiac risk factors include hypertension postmenopausal status and chronic inflammatory disorder-rheumatoid arthritis. She works at [employer], is on her feet quite a bit. She has had bouts of sudden sensation of heart racing, associated with dizziness, some nausea, and also associated with chest discomfort which then goes into her shoulder and neck. She says she has GERD but the symptoms are under control. She has history of knee replacement and spine surgery, averages 1-2 caffeinated beverages daily, and is a former smoker. Her blood pressure was initially elevated recheck blood pressure was at target. She remains on chronic nonsteroidal therapy. Patient did not bring in the medication list or bottles, the above list is for patient discussion. Patient reports palpitations and presyncope for the past 5 years, comes and goes, usually lasting afew minutes, of late they have been lasting longer and they are waking her up from sleep at night. She was seen in the emergency department on November 19, 2022 with a syncopal episode, and I have reviewed details pertaining to that entry. She reportedly had urinary incontinence along with her syncope. The palpitations are described as a sudden takeoff of her heart, which then beats very fast. She had Stop Trulance because of diarrhea. Patient also complains of exertional shortness of breathprobably functional class II, no orthopnea or PND or claudication or lower extremity edema, no TIA or CVA type symptoms. EKG shows sinus rhythm at 72 bpm low volts poor R wave progression normal intervals. Not orthostatic by definition. Laboratory data reviewed, shows hypokalemia. Hemoglobin 11.9 hematocrit 35 MCV 92 platelets 214 potassium 3.5 GFR greater than 60 Assessment: 1. Palpitations-raising concern for some type of reentrant tachycardia episodes getting more frequent and lasting longer sometimes wakes her up from sleep at night 2. Chest discomfort, probably rate related angina pectoris, but will need to rule out flow-limitingcoronary artery disease 3. Abnormalities on EKG with poor R wave progression. Normal intervals 4. Diarrhea to Trulance. We will hold off on magnesium 5. Not orthostatic in office today 6. Iatrogenic hypokalemia 7. Hypertension-at target 8. Former smoker 9. Averages 2 caffeinated beverages daily 10. Chronic inflammatory process-rheumatoid arthritis. 11. Multiple orthopedic surgeries-bilateral carpal tunnel release, left knee replacement back surgery. 12. Episode of syncope November 2022 Recommendations: 1. Lifestyle modification-we discussed hydration, and use of solutes in her fluids. 2. Metoprolol succinate 50 mg p.o. daily 3. Hold off on magnesium supplementation because it may exacerbate her diarrhea 4. 48-hour Holter monitor 5. Potassium chloride 40 mEq p.o. daily with basic metabolic profile 2 weeks after supplementation 6. Treadmill stress test with perfusion, may switch to Lexiscan Myoview as needed 7. Follow-up after te (more content not included)...NormalUH TouchworksTobacco Screening.on 42-33-6172Yufmv depression screening assessmentNoMP-[facility]-Jorge L [address] DO Work Phone: Tobacco use status CPHSb) NoMP-[facility]- [employer] [address] DO Work Phone: Basophils Auto (Bld) [#/Vol]Ordered By: Everardo Phillips on 84-55-6132Aocqgcicp (Bld) [#/Vol]0.0 10*3/uL0.0-0.2FSelect Medical OhioHealth Rehabilitation HospitalBasophils/100 WBC Auto (Bld)Ordered By: Everardo Phillips on 11-19-2022 Basophils/100 WBC (Bld)0.6 %.[facility], IncCalcium [Mass/volume] in Serum or PlasmaOrdered By: Everardo Phillips on 30-13-1754Vjlgkva [Mass/Vol]8.8 mg/dL8.6-10.3FSelect Medical OhioHealth Rehabilitation HospitalCarbon dioxide, total [Moles/volume] in Serum or PlasmaOrdered By: Everardo Phillips on 54-80-6437WV2 [Moles/Vol]25.2 mmol/L21.0-31.0[facility], IncChloride [Moles/volume] in Serum or PlasmaOrdered By: Everardo Phillips on 53-42-8780Wvawulwd [Moles/Vol]102 mmol/I10-368ZwjhckndrSelect Medical Specialty Hospital [facility], IncCreatinine [Mass/volume] in Serum or PlasmaOrdered By: Everardo Phillips on 12-59-1930Dzkqrrrcxj [Mass/Vol]0.78 mg/dL0.60-1.20[facility], IncEosinophils Auto (Bld) [#/Vol]Ordered By: Everardo Phillips on 64-57-4898Ymxbcoweylz (Bld) [#/Vol]0.0 10*3/uL0.0-0.45[facility], IncEosinophils/100 WBC Auto (Bld) Ordered By: Everardo Phillips on 28-65-2567Rngyejujyld/100 WBC (Bld)0.4 %.[facility], IncErythrocyte distribution width Auto (RBC) [Ratio]Ordered By: Everardo Phillips on 92-19-6298Fyswutehxsi distribution width (RBC) [Ratio]12.8 % 11.9-15.3FSelect Medical [facility] Rehabilitation HospitalGlucose [Mass/volume] in Serum or PlasmaOrdered By: Everardo Phillips on 99-71-1437Ajrbzpg [Mass/Vol]95 mg/dU97-146 [facility], IncComment on above:ADA recommended reference rangeRandom Glucose Reference Range is dependent on time and content of last meal. Glucose of more than 200 mg/dL in a nonstressed, ambulatory subject supports the diagnosisof Diabetes Mellitus.Hematocrit Auto (Bld) [Volume fraction]Ordered By: Everardo Phillips on 07-16-6839Iadopwbadr (Bld) [Volume fraction] 34.6 %34.0-46.4FSelect Medical OhioHealth Rehabilitation HospitalHemoglobin [Mass/volume] in BloodOrdered By: Everardo Phillips on 11-34-8708Vebacurzdq (Bld) [Mass/Vol]11.9 g/dL 11.8-15.4FSelect Medical OhioHealth Rehabilitation HospitalLeukocytes [#/volume] corrected for nucleated erythrocytes in Blood by Automated counOrdered By: Everardo Phillips on 92-97-2901SWV corrected for nucl RBC Auto (Bld) [#/Vol]7.0 10*3/uL3.8-11.6 [facility], IncLymphocytes Auto (Bld) [#/Vol]Ordered By: Everardo Phillips on 89-68-6259Xohdyawonkn (Bld) [#/Vol]2.6 10*3/uL1.00-4.8[facility], IncLymphocytes/100 WBC Auto (Bld)Ordered By: Everardo Phillips on 99-79-6158Cfiioluwmkx/100 WBC (Bld)36.7 %.[facility], IncMCH Auto (RBC) [Entitic mass]Ordered By: Everardo Phillips on 03-78-2382FSD (RBC) [Entitic mass]31.5 pg24.7-34.3FSelect Medical OhioHealth Rehabilitation HospitalMCHC Auto (RBC) [Mass/Vol] Ordered By: Everardo Phillips on 81-17-4515NPVH (RBC) [Mass/Vol]34.2 g/dL32.0-35.0 [facility], IncMCV Auto (RBC) [Entitic vol]Ordered By: Everardo Phillips on 72-71-5971JAE (RBC) [Entitic vol]92.0 mL33-034XeaweniwmSelect Medical Specialty Hospital - [facility], IncMonocyte distribution width [Entitic volume] in Blood by Automated Ordered By: Everardo Phillips on 76-22-2263Rlvrnjrg distribution width Auto (Bld) [Entitic vol]17.59 %0.00-20.00[facility], IncMonocytes Auto (Bld) [#/Vol]Ordered By: Everardo Phillips on 90-02-6958Cuilyubzp (Bld) [#/Vol]0.4 10*3/uL0.0-0.8[facility], IncMonocytes/100 WBC Auto (Bld) Ordered By: Everardo Phillips on 07-22-9625Nhcdlllwz/100 WBC (Bld)5.6 %.[facility], IncNeutrophils Auto (Bld) [#/Vol]Ordered By: Everardo Phillips on 31-08-8353Fcrwykgxqxe (Bld) [#/Vol]4.0 10*3/uL1.8-7.7FSelect Medical OhioHealth Rehabilitation HospitalNeutrophils/100 WBC Auto (Bld)Ordered By: Everardo Phillips on 11-19-2022 Neutrophils/100 WBC (Bld)56.7 %.[facility], IncNo Panel InformationOrdered By: Everardo Phillips on 05-67-0777Betnwdefh GFR (CKD-EPI)> 60.0 mL/MinSelect Medical Specialty Hospital [facility], IncPharmacy Creatinine Clearance (Chem92.31 [facility], IncNucleated erythrocytes [Presence] in Blood by Automated countOrdered By: Everardo Phillips on 93-45-2169Rrioigrvf RBC Auto Ql (Bld) 0.1 /100{WBC}0-0.5FSelect Medical OhioHealth Rehabilitation HospitalPlatelet mean volume Auto (Bld) [Entitic vol]Ordered By: Everardo Phillips on 35-62-0427Oeghphzs mean volume (Bld) [Entitic vol]8.5 fL6.3-10.7FSelect Medical OhioHealth Rehabilitation HospitalPlatelets Auto (Bld) [#/Vol]Ordered By: Everardo Phillips on 51-66-0532Xjdkxjvjc (Bld) [#/Vol]214 10*3/wF541-639VqlvqdhfoSelect Medical Specialty Hospital [facility], IncPotassium [Moles/volume] in Serum or PlasmaOrdered By: Everardo Phillips on 59-51-8779Mptnokgth [Moles/Vol]3.5 mmol/L 3.5-5.1FSelect Medical OhioHealth Rehabilitation HospitalRBC Auto (Bld) [#/Vol]Ordered By: Everardo Phillips on 01-81-4433BLM (Bld) [#/Vol]3.77 10*6/uL3.60-5.00[facility] Health Systemerum or plasma anion gap determinationOrdered By: Everardo Phillips on 10-67-4347Cyhct gap [Moles/Vol]11.3 mmol/L6.0-15.0[facility]orial Health Systemodium [Moles/volume] in Serum or PlasmaOrdered By: Everardo Phillips on 94-18-2664Cybafw [Moles/Vol]135 mmol/C982-957GpjuatzeeSelect Medical Specialty Hospital [facility], Inc Urea nitrogen [Mass/volume] in Serum or PlasmaOrdered By: Everardo Phillips on 02-71-2786Vzts nitrogen [Mass/Vol]24 mg/dL7-25[facility] WBC Auto (Bld) [#/Vol]Ordered By: Everardo Phillips on 42-24-5704IDQ (Bld) [#/Vol]7.0 10*3/uL3.8-11.6FSelect Medical OhioHealth Rehabilitation HospitalEstablished Visit (Orthopaedic Surgery)on 99-05-7753Rsustjarqbe Visit (Orthopaedic Surgery)Orders Status post total knee replacement Start: methylPREDNISolone 4 MG Oral Tablet Therapy Pack (Medrol); TAKE DIRECTED ON NAYAN Chief Complaint f/u RT TKR 12/24/21, x-rays @ [facility] 05/19/22 seen in castroom on 05/19/22 due to increased right knee pain History of Present Illness History of present illness 62-year-old female presented clinic today for follow-up evaluation status post right total knee Maximino. She has been dealing with some increased pain over the last month. She notices that she has swelling and sharp pain with extended weightbearing activity. She was doing extremely well. No new injurythat she can recall. No instability reported. She can still do everything she wants to do she just noticed some increased swelling at this time Physical exam General: No acute distress and breathing comfortably. Patient is pleasant and cooperative with the examination. Extremity Right knee is neurovascular intact. Good range of motion 0 to 110 degrees. No signs of infection. Incisions well-healed approximate this time. Tenderness palpation of the IT band distally. No calf swelling or tenderness. Compartments soft. 2+ pulses bilateral extremity. Capillary refill is within normal limits distally. No instability on exam Diagnostics [ none] Procedure [ none] Assessment Status post right total knee Maximino Treatment plan 1. At this time prescription for Medrol Dosepak sent to pharmacy 2. She was instructed on continuing with fascia releasing over the IT band and stretching 3. She will continue with weightbearing activity as tolerated. Follow-up with us as scheduled. 4. All of the patient's questions were answered. This note was prepared using voice recognition software. The details of this note are correct and have been reviewed, and corrected to the best of my ability. Some grammatical areas may persist related to the [employer] Syed Zaragoza PA-C . 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) Radial head fracture (813.05) (S52.123A) Radial neck fracture (813.06) (S52.133A) Rheumatoid arthritis (714.0) (M06.9) Status post total knee replacement (V43.65) (Z96.659) Wrist pain (719.43) (M25.539) Past Medical History Problems History of Digestive problems (V47.3) (K92.9) History of arthritis (V13.4) (Z87.39) History of balance disorder (V13.89) (Z87.898) History of Numbness and tingling (782.0) (R20.0,R20.2) Surgical History Problems History of Carpal tunnel surgery History of Joint replacement procedure History of Knee replacement History of Spinal surgery Family History Mother Family history of arthritis (V17.7) (Z82.61) Family history of osteoarthritis (V17.89) (Z82.69) Brother Family history of arthritis (V17.7) (Z82.61) Family history of gout (V18.19) (Z82.69) Other Family history of alcoholism (V17.0) (Z81.1) Family history of asthma (V17.5) (Z82.5) Family history of cardiac disorder (V17.49) (Z82.49) Family history of cerebrovascular accident (CVA) (V17.1) (Z82.3) Family history of colitis (V18.59) (Z83.79) Family history of diabetes mellitus (V18.0) (Z83.3) Family history of hypertension (V17.49) (Z82.49) Family history of malignant neoplasm (V16.9) (Z80.9) Social History Problems Denies alcohol consumption (V49.89) (Z78.9) Exercise: Walking Former smoker (V15.82) (Z87.891) No illicit drug use Allergies Medication No Known Drug Allergies Recorded By: Mat Aguilar; 08/28/2019 9:58:58 AM No Known Drug Allergies Recorded By: Amie Martínez; 08/28/2019 10:00:35 AM Current Meds Medication NameInstruction Alendronate Sodium 70 MG Oral TabletTAKE 1 TABLET BY MOUTH EVERY WEEK 30 TO 60 MINUTES PRIOR TO BREAKFASTON AN EMPTY STOMACH. DO NOT LIE DOWN AFTER TAKING MEDICATION Celecoxib 100 MG Oral CapsuleTAKE 1 CAPSULE TWICE DAILY NEEDED. Celecoxib 200 MG Oral CapsuleTAKE ONE CAPSULE BY MOUTH DAILY WITH FOOD Cyclobenzaprine HCl - 10 MG Oral TabletTAKE ONE TABLET BY MOUTH EVERY NIGHT AT BEDTIME Escitalopram Oxalate 20 MG Oral Tablet Folic Acid 1 MG Oral TabletTAKE 1 TABLET DAILY DIRECTED. Need to be taken For Methotrexate therapy Humira Pen 40 MG/0.4ML Subcutaneous Pen-injector KitINJECT ONE PEN SUBCUTANEOUSLY EVERY OTHER WEEK HYDROcodone-Acetaminophen 5-325 MG Oral TabletTAKE 1 TABLET Every 8 hours PRN Hydroxychloroquine Sulfate 200 MG Oral TabletTake one tablet by mouth twice a day Methotrexate 2.5 MG Oral TabletTAKE 4 TABLETS WEEKLY. Methotrexate Sodium 2.5 MG Oral TabletTAKE FOUR TABLETS BY MOUTH ONCE WEEKLY methylPREDNISolone 4 MG Oral Tablet Therapy PackUSE DIRECTED ; QTY 21 TABLET Pantoprazole Sodium 40 MG Oral Packet predniSONE 5 MG Oral Fyuaav45wf(3 pills) for 4 days then 10mg (2 pills) da (more content not included)...NormalUH TouchworksEstablished Visit (Orthopaedic Surgery)on 95-56-1860Bptsigrjhex Visit (Orthopaedic Surgery)Chief Complaint f/u RT TKR 12/24/21, almost 6 months out, x-rays @ [facility] 05/19/22 seen in castroom on 05/19/22 due to increased right knee pain History of Present Illness History of present illness 62-year-old female follow-up of her right total knee replacement from December she is 6 months outshe states her right knee is doing great she feels like she is turned a corner she is very happy with the progress she has a little bit of swelling no numbness or tingling no fevers or chills no locking or giving way. She is ambulating without assist device. Physical exam General: No acute distress and breathing comfortably. Patient is pleasant and cooperative with the examination. Extremity Right knee incision well-healed full knee extension flexion 120 degrees no instability brisk capillary refill compartments are soft calf is nontender Diagnostics See dictated x-ray report reviewed to the PACS system dated 05/19 Procedure [ none] Assessment Status post total knee replacement right Treatment plan 1. Continue working on range of motion strengthening continue to weight-bear as tolerated follow-up6 months sooner if he has increased pain or discomfort. 2. [ ] 3. [ ] 4. All of the patient's questions were answered. This note was prepared using voice recognition software. The details of this note are correct and have been reviewed, and corrected to the best of my ability. Some grammatical areas may persist related to the [employer] Rodney Lamb MD Senior Attending Physician [facility] [place] . 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) Radial head fracture (813.05) (S52.123A) Radial neck fracture (813.06) (S52.133A) Rheumatoid arthritis (714.0) (M06.9) Status post total knee replacement (V43.65) (Z96.659) Wrist pain (719.43) (M25.539) Past Medical History Problems History of Digestive problems (V47.3) (K92.9) History of arthritis (V13.4) (Z87.39) History of balance disorder (V13.89) (Z87.898) History of Numbness and tingling (782.0) (R20.0,R20.2) Surgical History Problems History of Carpal tunnel surgery History of Joint replacement procedure History of Knee replacement History of Spinal surgery Family History Mother Family history of arthritis (V17.7) (Z82.61) Family history of osteoarthritis (V17.89) (Z82.69) Brother Family history of arthritis (V17.7) (Z82.61) Family history of gout (V18.19) (Z82.69) Other Family history of alcoholism (V17.0) (Z81.1) Family history of asthma (V17.5) (Z82.5) Family history of cardiac disorder (V17.49) (Z82.49) Family history of cerebrovascular accident (CVA) (V17.1) (Z82.3) Family history of colitis (V18.59) (Z83.79) Family history of diabetes mellitus (V18.0) (Z83.3) Family history of hypertension (V17.49) (Z82.49) Family history of malignant neoplasm (V16.9) (Z80.9) Social History Problems Denies alcohol consumption (V49.89) (Z78.9) Exercise: Walking Former smoker (V15.82) (Z87.891) No illicit drug use Allergies Medication No Known Drug Allergies Recorded By: Mat Aguilar; 08/28/2019 9:58:58 AM No Known Drug Allergies Recorded By: Amie Martínez; 08/28/2019 10:00:35 AM Current Meds Medication NameInstruction Alendronate Sodium 70 MG Oral TabletTAKE 1 TABLET BY MOUTH EVERY WEEK 30 TO 60 MINUTES PRIOR TO BREAKFASTON AN EMPTY STOMACH. DO NOT LIE DOWN AFTER TAKING MEDICATION Celecoxib 100 MG Oral CapsuleTAKE 1 CAPSULE TWICE DAILY NEEDED. Celecoxib 200 MG Oral CapsuleTAKE ONE CAPSULE BY MOUTH DAILY WITH FOOD Cyclobenzaprine HCl - 10 MG Oral TabletTAKE ONE TABLET BY MOUTH EVERY NIGHT AT BEDTIME Escitalopram Oxalate 20 MG Oral Tablet Folic Acid 1 MG Oral TabletTAKE 1 TABLET DAILY DIRECTED. Need to be taken For Methotrexate therapy Humira Pen 40 MG/0.4ML Subcutaneous Pen-injector KitINJECT ONE PEN SUBCUTANEOUSLY EVERY OTHER WEEK HYDROcodone-Acetaminophen 5-325 MG Oral TabletTAKE 1 TABLET Every 8 hours PRN Hydroxychloroquine Sulfate 200 MG Oral TabletTake one tablet by mouth twice a day Methotrexate 2.5 MG Oral TabletTAKE 4 TABLETS WEEKLY. Methotrexate Sodium 2.5 MG Oral TabletTAKE FOUR TABLETS BY MOUTH ONCE WEEKLY methylPREDNISolone 4 MG Oral Tablet Therapy PackUSE DIRECTED ; QTY 21 TABLET Pantoprazole Sodium 40 MG Oral Packet predniSONE 5 MG Oral Fxcnds31ss(3 pills) for 4 days then 10mg (2 pills) daily x 3 days and 5 mg (1 )x 3 days and stop QUEtiapine Fumarate 25 MG Oral Tablet Rinvoq 15 MG Oral Tablet Extended Release 24 Hour Rosuvastatin Calcium 20 MG Oral Tablet Sucralfate 1 GM Oral Tablet Trulance 3 MG Oral Tablet Valsartan TABS Signatures Electronically signed by : Rodney Lamb MD; Jun 12 2022 6:39AM EST (Author)[facility] TouchworksInitial Visit (Orthopaedic Surgery)on 05-19-2022 Initial Visit (Orthopaedic Surgery)Diagnoses/Problems Assessed Wrist pain (719.43) (M25.539) Orders Status post total knee replacement Start: methylPREDNISolone 4 MG Oral Tablet Therapy Pack (Medrol); USE DIRECTED ; QTY 21 TABLET Provider Impressions Assessment: 1. Right knee pain status post right total knee replacement. Treatment Plan: Caty presents for right knee pain status post right total knee replacement by Dr. Lamb fivemonths out. She has a history of rheumatoid arthritis. There was no fall and no traumatic injury. No recent infection. X-rays show no significant change. We did recommend a Medrol Dosepak possible flare from her rheumatoid arthritis. Follow up with Dr. Lamb in two to three weeks to reevaluate her knee after compression sleeve, Medrol Dosepak, activity modification, and reevaluate with Dr. Lamb in two to three weeks. Chief Complaint Here for right knee pain. RT TKR 12/24/21 WS. Here with increased pain and discomfort History of Present IllnessCaty is a 62-year-old female status post right total knee replacement by Dr. Lamb almost five months out. She is noticing pain in the right knee for the past five days. There was no fall and no traumatic injury. She has a history of rheumatoid arthritis. She has been working since the past month and a half and she is here for persistent pain in the right knee with no recent infection. Review of Systems Review of systems, past medical history, allergies, social history, and family history documented and initialed on the patient information form dated May 19, 2022. This was reviewed and entered into the electronic medical record. No fevers or chills. No headache or neck pain. No nausea or vomiting. No blurry vision. No chest pain, shortness of breath, or cough. No rash. No lower extremity pitting edema. 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 Surgical History Problems History of Carpal tunnel surgery History of Joint replacement procedure History of Knee replacement History of Spinal surgery Family History Mother Family history of arthritis (V17.7) (Z82.61) Family history of osteoarthritis (V17.89) (Z82.69) Brother Family history of arthritis (V17.7) (Z82.61) Family history of gout (V18.19) (Z82.69) Other Family history of alcoholism (V17.0) (Z81.1) Family history of asthma (V17.5) (Z82.5) Family history of cardiac disorder (V17.49) (Z82.49) Family history of cerebrovascular accident (CVA) (V17.1) (Z82.3) Family history of colitis (V18.59) (Z83.79) Family history of diabetes mellitus (V18.0) (Z83.3) Family history of hypertension (V17.49) (Z82.49) Family history of malignant neoplasm (V16.9) (Z80.9) Social History Problems Denies alcohol consumption (V49.89) (Z78.9) Exercise: Walking Former smoker (V15.82) (Z87.891) No illicit drug use Allergies No Known Drug Allergies Recorded By: Mat Aguilar; 08/28/2019 9:58:58 AM No Known Drug Allergies Recorded By: Amie Martínez; 08/28/2019 10:00:35 AM Current Meds Medication NameInstruction Alendronate Sodium 70 MG Oral TabletTAKE 1 TABLET BY MOUTH EVERY WEEK 30 TO 60 MINUTES PRIOR TO BREAKFASTON AN EMPTY STOMACH. DO NOT LIE DOWN AFTER TAKING MEDICATION Celecoxib 100 MG Oral CapsuleTAKE 1 CAPSULE TWICE DAILY NEEDED. Celecoxib 200 MG Oral CapsuleTAKE ONE CAPSULE BY MOUTH DAILY WITH FOOD Cyclobenzaprine HCl - 10 MG Oral TabletTAKE ONE TABLET BY MOUTH EVERY NIGHT AT BEDTIME Escitalopram Oxalate 20 MG Oral Tablet Folic Acid 1 MG Oral TabletTAKE 1 TABLET DAILY DIRECTED. Need to be taken For Methotrexate therapy Humira Pen 40 MG/0.4ML Subcutaneous Pen-injector KitINJECT ONE PEN SUBCUTANEOUSLY EVERY OTHER WEEK HYDROcodone-Acetaminophen 5-325 MG Oral TabletTAKE 1 TABLET Every 8 hours PRN Hydroxychloroquine Sulfate 200 MG Oral TabletTake one tablet by mouth twice a day Methotrexate 2.5 MG Oral TabletTAKE 4 TABLETS WEEKLY. Methotrexate Sodium 2.5 MG Oral TabletTAKE FOUR TABLETS BY MOUTH ONCE WEEKLY Pantoprazole Sodium 40 MG Oral Packet predniSONE 5 MG Oral Zsjxut12jp(3 pills) for 4 days then 10mg (2 pills) daily x 3 days and 5 mg (1 )x 3 days and stop QUEtiapine Fumarate 25 MG Oral Tablet Rinvoq 15 MG Oral Tablet Extended Release 24 Hour Rosuvastatin Calcium 20 (more content not included)...NormalUH TouchworksKNEE 3 VIEWSon [id number] 3 VIEWSMRN: [id number] Patient Name: CATY HILLS STUDY: KNEE; 3 VIEWS; Right; 05/19/2022 11:25 am INDICATION: pain M25.569: Knee pain. ACCESSION NUMBER(S): [id number] ORDERING CLINICIAN: GLENNA SANTO FINDINGS: Right knee x-rays three views AP, lateral and sunrise view: No acute fractures, no dislocation. Stable appearing right knee prosthesis in satisfactory alignment, with no significant change from previous imaging. Electronically signed by: GLENNA SANTO MDNazareth Hospital Radiologyon [id number] Knee 3 [facility] Work Phone: BLOOD TB SCREENon 04-07-2022M. tuberculosis tuberculin stim IFN-g Ql (Bld)NegativeJoint Township District Memorial HospitalMitogen minus Nil>=0.50 IU/mL [facility] HospitalTB Gamma InterpretationInfection with M. tuberculosis complex is unlikely. If latent tuberculosis infection is highly suspected, a negative result does not rule out the infection. Specimens from immunocompromised patients and those <5 years of age may show false negative results. In case of a contact investigation, please repeat 8-12 weeks after a known exposure.[facility] HospitalTB Nil0.05 IU/mL<=8.00 IU/mLCleveland Perham Health HospitalTB1 Ag minus Nil0.00 IU/mL <0.35 IU/mLCleveland ClinicTB2 Ag minus Nil<0.35 IU/mLCleveland ClinicALT/SGPTon 30-30-9954VQY [Catalytic activity/Vol]24 U/L7 - 38 U/LCleveland ClinicAST/SGOT BLDon [id number] [Catalytic activity/Vol]21 U/L13 - 35 U/LCleveland Perham Health HospitalCBC W Auto Differential panel (Bld)on 10-69-6135Ljeaenvgq (Bld) [#/Vol]0.06 10*3/uL <0.11 k/uLJoint Township District Memorial HospitalBasophils/100 WBC (Bld)0.7 %[facility] Differential cell count method Nom (Bld)AutoCleveland ClinicEosinophils (Bld) [#/Vol]0.07 10*3/uL<0.46 k/uLCleMetroHealth Main Campus Medical CenterEosinophils/100 WBC (Bld)0.8 % [facility] HospitalErythrocyte distribution width (RBC) [Ratio]12.1 %11.5 - 15.0 % [facility] HospitalHematocrit (Bld) [Volume fraction]40.6 %36.0 - 46.0 %[facility] HospitalHemoglobin (Bld) [Mass/Vol]13.5 g/dL11.5 - 15.5 g/dLJoint Township District Memorial Hospital Immature granulocytes (Bld) [#/Vol]0.03 10*3/uL<0.10 k/uLJoint Township District Memorial Hospital Immature granulocytes/100 WBC (Bld)0.3 %[facility] HospitalLymphocytes (Bld) [#/Vol]3.72 10*3/uL1.00 - 4.00 k/uLJoint Township District Memorial HospitalLymphocytes/100 WBC (Bld)40.7 %[facility] HospitalH (RBC) [Entitic mass]29.9 pg26.0 - 34.0 pgCleveland Perham Health Hospital MCHC (RBC) [Mass/Vol]33.3 g/dL30.5 - 36.0 g/dLMercy Health Clermont HospitalV (RBC) [Entitic vol]90.0 fL80.0 - 100.0 fLCleveland Perham Health HospitalMonocytes (Bld) [#/Vol]0.80 10*3/uL <0.87 k/uLCleveland ClinicMonocytes/100 WBC (Bld)8.8 %[facility] Neutrophils (Bld) [#/Vol]4.46 10*3/uL1.45 - 7.50 k/[facility] Neutrophils/100 WBC (Bld)48.7 %[facility] HospitalNucleated RBC (Bld) [#/Vol]<0.01 k/uLJoint Township District Memorial HospitalNucleated RBC/100 WBC (Bld) [Ratio]0.0 /100 WBCJoint Township District Memorial HospitalPlatelet mean volume (Bld) [Entitic vol]10.7 fL9.0 - 12.7 fLCSt. Anthony's HospitalPlatelets (Bld) [#/Vol]266 10*3/uL150 - 400 k/[facility] HospitalRBC (Bld) [#/Vol]4.51 10*6/uL3.90 - 5.20 m/[facility] HospitalWBC (Bld) [#/Vol]9.14 10*3/uL 3.70 - 11.00 k/[facility] HospitalCREATININE BLDon 50-68-9601Mdkojfbxqr [Mass/Vol]0.75 mg/dL0.58 - 0.96 mg/dLJoint Township District Memorial HospitalEstimated Glomerular Filtration Rate91 mL/min/1.73m>=60 mL/min/1.73mCSt. Anthony's HospitalESR Westergren method (Bld) [Velocity]on 84-81-2099OXI (Bld) [Velocity]15 mm/h0 - 20 mm/hr [facility] HospitalHEP B SURF AG SCRNon 21-11-5429KFJ surface Ag Ql (S)Negative NegativeJoint Township District Memorial HospitalCOVID-19 Positive/NegativeOrdered By: Anibal Juan on 26-33-0035NUKD-CoV-2 (COVID-19) N gene TONIO+probe Ql (Resp)NegativeNegative [facility], IncComment on above:Testing for SARS-CoV-2 by RT- PCRThis test was developed and its performance characteristics determined by [employer] ([employer]) and validated at the [facility]. This test has not been FDA cleared or approved. This test has been authorized by FDA under an Emergency Use Authorization (EUA). This test has been validated in accordance with the FDA's Guidance Document (Policy for Diagnostics Testing in Laboratories Certified to Perform High Complexity Testing under CLIA prior to Emergency Use Authorization for Coronavirus Disease-2019 during the Public Health Emergency) issued on July 05, 2019. This test is only authorized for the duration of time the declaration that circumstances exist justifying the authorization of the emergency use of in vitro diagnostic tests for detection of SARS-CoV-2 virus and/or diagnosis of COVID-19 infection under section 564(b)(1) of the Act, 21 U.S.C. 360bbb-3(b)(1), unless the authorization is terminated or revoked sooner.Laboratory - Microbiology and Antimicrobial susceptibilityOrdered By: Anibal Juan on [id number]-CoV-2 (COVID-19) RNA TONIO+probe Ql (Unsp spec)[facility] HospitalRespiratory syncytial virus (RSV) antigen detection by enzyme immunoassayOrdered By: Anibal Juan on 48-30-2091PPD Ag IA Ql (Unsp spec)[facility] Established Visit (Orthopaedic Surgery)on [id number] Visit (Orthopaedic Surgery)Chief Complaint Rt TKA 12/24/21 - X-Rays Today History of Present Illness History of present illness 61-year-old female presented clinic today for her 3-month postop follow-up visit status post right total knee replacement. Overall doing very well. She still has some mild swelling over the right knee and is still icing for this. She is now done with outpatient physical therapy. She denies numbnesstingling no fevers chills at this time. She reports no instability. She notices overall improvementwith strength as well. She does state that her left knee did recover much faster than the right knee is at this point but she still very encouraged with her progress. She is been taking occasional ibuprofen which does seem to help. Physical exam General: No acute distress and breathing comfortably. Patient is pleasant and cooperative with the examination. Extremity Right knee is neurovascular intact. Range of motion 0 to 110 degrees. Mild edema of the right knee.Mild tenderness palpation of the IT band. 2+ pulses bilateral lower extremity. Capillary refill with numbness distally. Compartments soft. No calf swelling or tenderness. Incisions well-healed well approximated without infection. Improving strength right lower extremity. Less tension over the IT band. Diagnostics Please see dictated x-ray report Procedure [ none] Assessment Status post right total knee replacement Treatment plan 1. At this point she was encouraged to continue with weightbearing activity as tolerated 2. She will continue with her stretching exercises as well as myofascial massage since this seems to be working best for her. Return to work note given for April 06, 2022 no restrictions as tolerated. 3. She will follow-up with us in 3 months for reevaluation with new x-rays of the right knee only if she is symptomatic. 4. All of the patient's questions were answered. This note was prepared using voice recognition software. The details of this note are correct and have been reviewed, and corrected to the best of my ability. Some grammatical areas may persist related to the [employer] Syed Zaragoza PA-C . 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) Radial head fracture (813.05) (S52.123A) Radial neck fracture (813.06) (S52.133A) Rheumatoid arthritis (714.0) (M06.9) Status post total knee replacement (V43.65) (Z96.659) Wrist pain (719.43) (M25.539) Past Medical History Problems History of Digestive problems (V47.3) (K92.9) History of arthritis (V13.4) (Z87.39) History of balance disorder (V13.89) (Z87.898) History of Numbness and tingling (782.0) (R20.0,R20.2) Surgical History Problems History of Carpal tunnel surgery History of Joint replacement procedure History of Knee replacement History of Spinal surgery Family History Mother Family history of arthritis (V17.7) (Z82.61) Family history of osteoarthritis (V17.89) (Z82.69) Brother Family history of arthritis (V17.7) (Z82.61) Family history of gout (V18.19) (Z82.69) Other Family history of alcoholism (V17.0) (Z81.1) Family history of asthma (V17.5) (Z82.5) Family history of cardiac disorder (V17.49) (Z82.49) Family history of cerebrovascular accident (CVA) (V17.1) (Z82.3) Family history of colitis (V18.59) (Z83.79) Family history of diabetes mellitus (V18.0) (Z83.3) Family history of hypertension (V17.49) (Z82.49) Family history of malignant neoplasm (V16.9) (Z80.9) Social History Problems Denies alcohol consumption (V49.89) (Z78.9) Exercise: Walking Former smoker (V15.82) (Z87.891) No illicit drug use Allergies Medication No Known Drug Allergies Recorded By: Mat Aguilar; 08/28/2019 9:58:58 AM No Known Drug Allergies Recorded By: Amie Martínez; 08/28/2019 10:00:35 AM Current Meds Medication NameInstruction Alendronate Sodium 70 MG Oral TabletTAKE 1 TABLET BY MOUTH EVERY WEEK 30 TO 60 MINUTES PRIOR TO BREAKFASTON AN EMPTY STOMACH. DO NOT LIE DOWN AFTER TAKING MEDICATION Celecoxib 100 MG Oral CapsuleTAKE 1 CAPSULE TWICE DAILY NEEDED. Celecoxib 200 MG Oral CapsuleTAKE ONE CAPSULE BY MOUTH DAILY WITH FOOD Cyclobenzaprine HCl - 10 MG Oral TabletTAKE ONE TABLET BY MOUTH EVERY NIGHT AT BEDTIME Escitalopram Oxalate 20 MG Oral Tablet Folic Acid 1 MG Oral TabletTAKE 1 TABLET DAILY DIRECTED. Need to be taken For Methotrexate therapy Humira Pen 40 MG/0.4ML Subcutaneous Pen-injector KitINJECT ONE PEN SUBCUTANEOUSLY EVERY OTHER WEEK HYDROcodone-Acetaminophen 5-325 MG Oral TabletTAKE 1 TABLET Every 8 hours PRN Hydroxychloroquine Sulfate 200 MG Oral TabletTake one tablet by mouth twice a day Methotrexate 2.5 MG Oral TabletTAKE 4 TABLETS WEEKLY. Pantoprazole Sodium 40 MG Oral Packet predniSONE 5 (more content not included)...NormalUH TouchworksKNEE 3 VIEWSon [id number] 3 VIEWSMRN: [id number] Patient Name: APOORVA HILLSETTE STUDY: KNEE; 3 VIEWS; Right; 03/12/2022 9:45 am INDICATION: s/p TKR Z96.659: Status post total knee replacement. ACCESSION NUMBER(S): [id number] ORDERING CLINICIAN: RODNEY LAMB FINDINGS: Three views of the knee show status post joint replacement in good alignment. There are no signs of fracture or dislocation. No other bony abnormalities Electronically signed by: RODNEY LAMB MDOwatonna ClinicRadiologyon [id number] Knee 3 ViewsNormSan Diego County [facility] Work Phone: C Reactive Protein, Serumon [id number] [Mass/Vol] 0.33 mg/dLJFK Johnson Rehabilitation Institute Work Phone: Comment on above:REF VALUE< 1.00C-REACTIVE PROTEINon [id number]-REACTIVE PROTEIN0.33 mg/dLOwatonna ClinicComment on above:Result Comment: REF VALUE < 1.00Performed By: #### CRP #### [facility] [address] [place], [place] [address]UVL AND DIFFERENTIALon 03-01-2022% AUTOMATED IMMATURE GRAN0.1 %Normal0.0 - 0.9[facility] CenterComment on above:Result Comment: Immature Granulocyte Count (IG) includes promyelocytes, myelocytes and metamyelocytes but does not include bands. Percent differential counts (%) should be interpreted in the context of the absolute cell counts (cells/L).Performed By: #### CBCDF #### [facility] [address] [place], [place] [address]Sdcoothau (Bld) [#/Vol]0.06 10*3/uLNormal0.00 - 0.10[facility] CenterComment on above:Performed By: #### CBCDF #### [facility] [address] [place], [place] [address]Vsiqvgccn/100 WBC (Bld)0.8 %Normal0.0 - 2.0[facility] CenterComment on above:Performed By: #### CBCDF #### [facility] [address] [place], [place] [address]Zbhtjsijsln (Bld) [#/Vol]0.16 10*3/uLNormal0.00 - 0.70[facility] CenterComment on above:Performed By: #### CBCDF #### [facility] [address] [place], [place] [address]Jebccpfilmq/100 WBC (Bld)2.2 %Normal0.0 - 6.0[facility] CenterComment on above:Performed By: #### CBCDF #### [facility] [address] [place], [place] [address]Sbegxvlrrjq distribution width (RBC) [Ratio]11.9 %Tanmmk48.5 - 14.5[facility] CenterComment on above:Performed By: #### CBCDF #### [facility] [address] [place], [place] [address]Oyrjhlkshs (Bld) [Volume fraction]46.6 %High36.0 - 46.0[facility] CenterComment on above:Performed By: #### CBCDF #### [facility] [address] [place], [place] [address]Oappjhbllz (Bld) [Mass/Vol]14.6 g/nLHktuvp02.0 - 16.0[facility] CenterComment on above:Performed By: #### CBCDF #### [facility] [address] [place], [place] [address]Ypnelaurqun (Bld) [#/Vol]3.24 10*3/uLNormal1.20 - 4.80[facility] CenterComment on above:Performed By: #### CBCDF #### [facility] [address] [place], [place] [address]Ckvceyxybol/100 WBC (Bld)45.2 %Gcxpyy58.0 - 44.0[facility] CenterComment on above:Performed By: #### CBCDF #### [facility] [address] [place], [place] [address]FNAS (RBC) [Mass/Vol]31.3 g/dLLow32.0 - 36.0[facility] CenterComment on above:Performed By: #### CBCDF #### [facility] [address] [place], [place] [address]OGS (RBC) [Entitic vol]98 cYVrxlgi39 - 100[facility] CenterComment on above:Performed By: #### CBCDF #### [facility] [address] [place], [place] [address]Vzkrtpnki (Bld) [#/Vol]0.76 10*3/uLNormal0.10 - 1.00[facility] CenterComment on above:Performed By: #### CBCDF #### [facility] [address] [place], [place] [address]Zzoxijduv/100 WBC (Bld)10.6 %Normal2.0 - 10.0[facility] CenterComment on above:Performed By: #### CBCDF #### [facility] [address] [place], [place] [address]Xphvpbdsade (Bld) [#/Vol]2.94 10*3/uLNormal1.20 - 7.70[facility] CenterComment on above:Performed By: #### CBCDF #### [facility] [address] [place], [place] [address]Hwmdqdvzjsf/100 WBC (Bld)41.1 %Uvspqk56.0 - 80.0[facility] CenterComment on above:Performed By: #### CBCDF #### [facility] [address] [place], [place] [address]AQOGEZRLN RBC0.0 /100 WBCNormal0.0-0.0[facility] CenterComment on above:Performed By: #### CBCDF #### [facility] [address] [place], [place] [address]Qdayjfqyh (Bld) [#/Vol]234 10*3/dAZunvoa464 - 450[facility] CenterComment on above:Performed By: #### CBCDF #### [facility] [address] [place], [place] [address]QRO0.76 x10E12/LNormal4.00 - 5.20[facility] Comment on above:Performed By: #### CBCDF #### [facility] [address] [place], [place] [address]IFS (Bld) [#/Vol]7.2 10*3/uLNormal4.4 - 11.3[facility] CenterComment on above:Performed By: #### CBCDF #### [facility] [address] [place], [place] [address]ZKWIAOMETMJBV PANELon 00-05-7989Sxwveww [Mass/Vol]4.5 g/dL Normal3.4 - 5.0[facility] CenterComment on above:Performed By: #### CMP #### [facility] [address] [place], [place] [address]MYK [Catalytic activity/Vol]81 U/TNppizv53 - 136[facility] CenterComment on above:Performed By: #### CMP #### [facility] [address] [place], [place] [address]GEG [Catalytic activity/Vol]16 U/LNormal7 - 45[facility] CenterComment on above:Result Comment: Patients treated with Sulfasalazine may generate falsely decreased results for ALT.Performed By: #### CMP #### [facility] [address] [place], [place] [address]Fbvos gap [Moles/Vol]17 mmol/HHfqtpf87 - 20[facility] CenterComment on above:Performed By: #### CMP #### [facility] [address] [place], [place] [address]LIA [Catalytic activity/Vol]19 U/LNormal9 - 39[facility] CenterComment on above:Performed By: #### CMP #### [facility] [address] [place], [place] [address]Sbnpazkum [Mass/Vol]0.5 mg/dLNormal0.0 - 1.2[facility] CenterComment on above:Performed By: #### CMP #### [facility] [address] [place], [place] [address]Gxsapkf [Mass/Vol]10.0 mg/dLNormal8.6 - 10.6[facility] CenterComment on above:Performed By: #### CMP #### [facility] [address] [place], [place] [address]Htruizwz [Moles/Vol]100 mmol/GTbqjza37 - 107[facility] CenterComment on above:Performed By: #### CMP #### [facility] [address] [place], [place] [address]Svabczjoxf [Mass/Vol]0.78 mg/dLNormal0.50 - 1.05[facility] CenterComment on above:Performed By: #### CMP #### [facility] [address] [place], [place] [address]FAS/1.73 sq M.predicted among non-blacks MDRD (S/P/Bld) [Vol rate/Area]86 mL/min/{1.73_m2}Normal>90[facility] CenterComment on above:Result Comment: CALCULATIONS OF ESTIMATED GFR ARE PERFORMED USING THE 2020 CKD-EPI STUDY REFIT EQUATION WITHOUT THE RACE VARIABLE FOR THE IDMS-TRACEABLE CREATININE METHODS. https://jasn.asnjournals.org/content//ASN.9553631678Aivitrkfm By: #### CMP #### [facility] [address] [place], [place] [address]Poztvuo [Mass/Vol]71 mg/dLLow74 - 99[facility] CenterComment on above:Performed By: #### CMP #### [facility] [address] [place], [place] [address]TCA5 (Bld) [Moles/Vol]25 mmol/QOhtajz64 - 32[facility] CenterComment on above:Performed By: #### CMP #### [facility] [address] [place], [place] [address]Cqntbdbwf [Moles/Vol]4.6 mmol/LNormal3.5 - 5.3[facility] CenterComment on above:Performed By: #### CMP #### [facility] [address] [place], [place] [address]Bhzzeyy [Mass/Vol]7.6 g/dLNormal6.4 - 8.2[facility] CenterComment on above:Performed By: #### CMP #### [facility] [address] [place], [place] [address]Aqcqid [Moles/Vol]137 mmol/TXpabnu085 - 145[facility] CenterComment on above:Performed By: #### CMP #### [facility] [address] [place], [place] [address]Zwvn nitrogen [Mass/Vol]15 mg/dLNormal6 - 23[facility] CenterComment on above:Performed By: #### CMP #### [facility] [address] [place], [place] [address]Ulzqjlsj Blood Count + Differentialon 99-85-5940Isplatlww/100 WBC (Bld)0.8 %0.0 - 2.0[facility] Work Phone: Erythrocyte distribution width (RBC) [Ratio]11.9 %See BelowJFK Johnson Rehabilitation Institute Work Phone: Comment on above:Reference Range: 11.5 - 14.5 Hematocrit (Bld) [Volume fraction]46.6 %above high thresholdSee [facility] Work Phone: Comment on above:Reference Range: 36.0 - 46.0 Hemoglobin (Bld) [Mass/Vol]14.6 g/dLSee BelowJFK Johnson Rehabilitation Institute Work Phone: Comment on above:Reference Range: 12.0 - 16.0 Lymphocytes/100 WBC (Bld)45.2 %See BelowJFK Johnson Rehabilitation Institute Work Phone: Comment on above:Reference Range: 13.0 - 44.0MCHC (RBC) [Mass/Vol]31.3 g/dLbelow low thresholdSee [facility] Work Phone: Comment on above:Reference Range: 32.0 - 36.0MCV (RBC) [Entitic vol]98 fL80 - 100[facility] Work Phone: Monocytes/100 WBC (Bld)10.6 %2.0 - 10.0[facility] Work Phone: Neutrophils/100 WBC (Bld)41.1 %See BelowJFK Johnson Rehabilitation Institute Work Phone: Comment on above:Reference Range: 40.0 - 80.0Platelets (Bld) [#/Vol]234 10*3/uL150 - 450[facility] Work Phone: RBC (Bld) [#/Vol]4.76 {x10E12/L}See BelowJFK Johnson Rehabilitation Institute Work Phone: Comment on above:Reference Range: 4.00 - 5.20WBC (Bld) [#/Vol]7.2 10*3/uL4.4 - 11.3MHam[facility] Work Phone: Complete Blood Count + Differential0.06 {x10E9/L}See BelowJFK Johnson Rehabilitation Institute Work Phone: Comment on above:Reference Range: 0.00 - 0.10Complete Blood Count + Differential0.16 {x10E9/L}See BelowJFK Johnson Rehabilitation Institute Work Phone: Comment on above:Reference Range: 0.00 - 0.70Complete Blood Count + Differential0.76 {x10E9/L}See BelowJFK Johnson Rehabilitation Institute Work Phone: Comment on above:Reference Range: 0.10 - 1.00Complete Blood Count + Differential3.24 {x10E9/L}See BelowJFK Johnson Rehabilitation Institute Work Phone: Comment on above:Reference Range: 1.20 - 4.80Complete Blood Count + Differential2.94 {x10E9/L}See BelowJFK Johnson Rehabilitation Institute Work Phone: Comment on above:Reference Range: 1.20 - 7.70Complete Blood Count + Differential2.2 %0.0 - 6.0[facility] Work Phone: Complete Blood Count + Differential0.1 %0.0 - 0.9[facility] Work Phone: Comment on above:Immature Granulocyte Count (IG) includes promyelocytes, myelocytes and metamyelocytes but does not include bands. Percent differential counts (%) should be interpreted in the context of the absolute cell counts (cells/L).Complete Blood Count + Differential0.0 {/100_WBC}0.0-0.0[facility] Work Phone: Follow Up (Rheumatology)on 25-48-5127Sivmmg Up (Rheumatology)Diagnoses/Problems Assessed Rheumatoid arthritis (714.0) (M06.9) Orders Osteoporosis, post-menopausal Renew: Alendronate Sodium 70 MG Oral Tablet; TAKE 1 TABLET BY MOUTH EVERY WEEK 30 TO 60 MINUTES PRIOR TO BREAKFASTON AN EMPTY STOMACH. DO NOT LIE DOWN AFTER TAKING MEDICATION Rx By: Denise Cardoza; Dispense: 0 Days ; #:12 Tablet; Refill: 3;For: Osteoporosis, post-menopausal; GONSALO = N; Verified Transmission to [place] [address]; Last Updated By: System, HarQen; 03/01/2022 11:40:01 AM Rheumatoid arthritis C Reactive Protein, Serum; Status:In Progress - Specimen/Data Collected; Done: 01Mar2022 Perform:Lab Services - Lab To Draw (Blood Test); Due:30May2022;Ordered; For:Rheumatoid arthritis; Ordered By:Denise Cardoza; Complete Blood Count + Differential; Status:In Progress - Specimen/Data Collected; Done: 01Mar2022 Perform:Lab Services - Lab To Draw (Blood Test); Due:[id number];Ordered; For:Rheumatoid arthritis; Ordered By:Denise Cardoza; Comprehensive Metabolic Panel; Status:In Progress - Specimen/Data Collected; Done: 01Mar2022 Perform:Lab Services - Lab To Draw (Blood Test); Due:30May2022;Ordered; For:Rheumatoid arthritis; Ordered By:Denise Cardoza; Sedimentation Rate, Erythrocyte; Status:In Progress - Specimen/Data Collected; Done: [id number] Perform:Lab Services - Lab To Draw (Blood Test); Due:09Vqi9452;Ordered; For:Rheumatoid arthritis; Ordered By:Denise Cardoza; Patient Discussion/Summary As we discussed continue with Humira and hydroxychloroquine, see if you can Tolerates methotrexate 5 pills Provider Impressions 61 y/o female with Hx of RA on Rinvog and PLQ present for evaluation. She is complaining of ulcer disease control and fatigue she does not have significant synovitis on exam, however she has recent diagnosis of iritis and on steroid drops. As noted above suggested iritis,no role of Douglas inhibitors for management of iritis. We switched to TNF inhibitor after we review records from thrill [facility] -Continue with Humira every 2 weeks -Continue with PLQ 200 mg BID -Recommend wean methotrexate up as tolerated to 5 pills weekly if tolerated, with daily folic acid,will see if she can tolerate this -Use Celebrex as needed -Patient with history of depression on Lexapro and Seroquel, recommend she discussed with her PCP about duloxetine as patient likely has underlying fibromyalgia -Continue with Fosamax 70 mg weekly , patient have had a recent bone density worse T score was -1.3in the left femoral head, given her history of fractures and prior chronic steroid use she is at higher risk for osteoporosis fracture, high FRAX score indicates need for therapy she does not have any family history of fracture. -The patient should maintain intake of supplementation of calcium 1200 mg in divided doses and vitamin D 2000 units, -Patient should have a repeat BMD testing in November 2023 -f/u in 3-4 months Chief Complaint follow up History of Present Frusarv60 y/o female with Hx of RA on Rinvog and PLQ present for evaluation. Shereport she had been initially tried on MTX and then transitioned to Enbrel. She then was switched to Rinvog about a year ago. She has had right knee replacement. She report Hx of Fracture of left elbow in 2020 after a fall. She also report pain in her spine as well due to DJD of the spine. She feels in the last 6 months she has had issues with generalized pain and fatigue. 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 She takes ibuprofen 400 mg as needed for pain , which help 30-40% She is tolerating Humira so far, almost 3 month on therapy, report 70% improvement. She does feel additional methotrexate is helping her joint symptoms but she is only taking 3 pills right now. Status post knee replacement surgery December 2021 She is tolerating bisphosphonate Previous meds: Rinvog Enbrel MTX 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) Radial head fracture (813.05) (S52.123A) Radial neck fracture (813.06) (S52.133A) Rheumatoid arthritis (714.0) (M06.9) Status post total knee replacement (V43.65) (Z96.659) Wrist pain (719.43) (M25.539) Past Medical History Problems History of Digestive problems (V47.3) (K92.9) History of arthritis (V13.4) (Z87.39) History of balance disorder (V13.89) (Z87.898) History of Numbness and tingling (782.0) (R20.0,R20.2) Surgical History Problems History of Carpal tunnel surgery History of Joint replacement procedure History of Knee replacement History of Spinal surgery Family History Mother Family history of arthritis (V17.7) (Z82.61) Family history of osteoarthritis (V17.89) (Z82.69) Brother Family history of arthritis (V17.7) (Z82.61) Family history of gout (V18.19) (Z82.69) Other Family history of alcoh (more content not included)...NormalUH [facility] - Chemistry and Chemistry - challengeon 57-67-5341Svywrsh BCP dye [Mass/Vol]4.5 g/dL3.4 - 5.0[facility] Work Phone: ALP [Catalytic activity/Vol]81 U/L33 - 136MP-[facility] Work Phone: ALT With P-5'-P [Catalytic activity/Vol]16 U/L7 - 45 [facility] Work Phone: Comment on above:Patients treated with Sulfasalazine may generate falsely decreased results for ALT.Anion gap [Moles/Vol]17 mmol/L10 - 20MP-[facility] Work Phone: AST With P-5'-P [Catalytic activity/Vol]19 U/L9 - 39 -[facility] Work Phone: Bilirubin [Mass/Vol]0.5 mg/dL0.0 - 1.2MP[facility] Work Phone: Calcium [Mass/Vol]10.0 mg/dL8.6 - 10.6MP-[facility] Work Phone: Chloride [Moles/Vol]100 mmol/L98 - 107MP-[facility] Work Phone: CO2 [Moles/Vol]25 mmol/L21 - 32MP-[facility] Work Phone: Creatinine [Mass/Vol]0.78 mg/dLSee Below-[facility] Work Phone: Comment on above:Reference Range: 0.50 - 1.05Glucose [Mass/Vol]71 mg/dLbelow low wbfrrtavy56 - 99MP-[facility] Work Phone: Potassium [Moles/Vol]4.6 mmol/L3.5 - 5.3MP-[facility] Work Phone: Protein [Mass/Vol]7.6 g/dL6.4 - 8.2MP[facility] Work Phone: Sodium [Moles/Vol]137 mmol/L136 - 145MP[facility] Work Phone: Urea nitrogen [Mass/Vol]15 mg/dL6 - 23[facility] Work Phone: No Panel Informationon {mL/min/1.73m2}>90 -[facility] Work Phone: Comment on above:CALCULATIONS OF ESTIMATED GFR ARE PERFORMED USING THE 2020 CKD-EPI STUDY REFIT EQUATION WITHOUT THERACE VARIABLE FOR THE IDMS-TRACEABLE CREATININE METHODS.https://jasn.asnjournals.org/content/early/ASN.1361219851 SEDIMENTATION RATE, ERYTHROCYTEon [id number] RATE, ERYTHROCYTE8 mm/hNormal0 - 30[facility] HospitalComment on above:Performed By: #### ESRWS #### [facility] [address] [place], [place] [address]Yywfspmbfzygc Rate, Erythrocyteon 08-89-0234YBY (Bld) [Velocity]8 mm/h0 - 30-[facility] Work Phone: Established Visit (Orthopaedic Surgery)on 01-29-2022 Established Visit (Orthopaedic Surgery)Chief Complaint RT TKR 12/24/21 - 5 Wks Out s/p PT History of Present Illness History of present illness 61-year-old female presented clinic today for her 5 and half week postop visit status post right total knee replacement. Overall doing extremely well. She notices overall improvement with range of motion. She is ambulating with assistance of a cane today. She starts outpatient therapy next week. Nonumbness tingling no fevers chills at this time. Physical exam General: No acute distress and breathing comfortably. Patient is pleasant and cooperative with the examination. Extremity Right knee is neurovascular intact. Range of motion 2 to 95 degrees. Mild edema of the right knee. Incisions well-healed well approximated without abnormality or infection. No calf swelling or tenderness. 2+ pulses bilateral lower extremity. Improving strength right lower extremity. Mild atrophy ofthe quads at this time. No DVT. Diagnostics [ none] Procedure [ none] Assessment Status post right total knee replacement Treatment plan 1. She will continue with weightbearing activity as tolerated. Continue weaning herself off the cane. 2. She will begin outpatient therapy next week. We will refill her pain medication and her muscle relaxer just in case she needs something when she starts outpatient. Hydrocodone and cyclobenzaprine sent to the pharmacy. 3. She will follow-up with us in approximately 1 month for reevaluation with new x-rays of the right knee discussion of returning to work will take place at her next appointment. She will most likelybe returned after the first of the year. 4. All of the patient's questions were answered. I have personally reviewed the OARRS report for this patient. This report is scanned into the electronic medical record. I have considered the risks of abuse, dependence, addiction and diversion. Pain can reach 8/10 at times. This note was prepared using voice recognition software. The details of this note are correct and have been reviewed, and corrected to the best of my ability. Some grammatical areas may persist related to the [employer] Syed Zaragoza PA-C . 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) Radial head fracture (813.05) (S52.123A) Radial neck fracture (813.06) (S52.133A) Rheumatoid arthritis (714.0) (M06.9) Status post total knee replacement (V43.65) (Z96.659) Wrist pain (719.43) (M25.539) Past Medical History Problems History of Digestive problems (V47.3) (K92.9) History of arthritis (V13.4) (Z87.39) History of balance disorder (V13.89) (Z87.898) History of Numbness and tingling (782.0) (R20.0,R20.2) Surgical History Problems History of Carpal tunnel surgery History of Joint replacement procedure History of Knee replacement History of Spinal surgery Family History Mother Family history of arthritis (V17.7) (Z82.61) Family history of osteoarthritis (V17.89) (Z82.69) Brother Family history of arthritis (V17.7) (Z82.61) Family history of gout (V18.19) (Z82.69) Other Family history of alcoholism (V17.0) (Z81.1) Family history of asthma (V17.5) (Z82.5) Family history of cardiac disorder (V17.49) (Z82.49) Family history of cerebrovascular accident (CVA) (V17.1) (Z82.3) Family history of colitis (V18.59) (Z83.79) Family history of diabetes mellitus (V18.0) (Z83.3) Family history of hypertension (V17.49) (Z82.49) Family history of malignant neoplasm (V16.9) (Z80.9) Social History Problems Denies alcohol consumption (V49.89) (Z78.9) Exercise: Walking Former smoker (V15.82) (Z87.891) No illicit drug use Allergies Medication No Known Drug Allergies Recorded By: Mat Aguialr; 08/28/2019 9:58:58 AM No Known Drug Allergies Recorded By: Amie Martínez; 08/28/2019 10:00:35 AM Current Meds Medication NameInstruction Alendronate Sodium 70 MG Oral TabletTAKE 1 TABLET BY MOUTH EVERY WEEK 30 TO 60 MINUTES PRIOR TO BREAKFASTON AN EMPTY STOMACH. DO NOT LIE DOWN AFTER TAKING MEDICATION Celecoxib 100 MG Oral CapsuleTAKE 1 CAPSULE TWICE DAILY NEEDED. Celecoxib 200 MG Oral CapsuleTAKE ONE CAPSULE BY MOUTH DAILY WITH FOOD Cyclobenzaprine HCl - 10 MG Oral TabletTAKE 1 TABLET Bedtime Escitalopram Oxalate 20 MG Oral Tablet Folic Acid 1 MG Oral TabletTAKE 1 TABLET DAILY DIRECTED. Need to be taken For Methotrexate therapy Humira Pen 40 MG/0.4ML Subcutaneous Pen-injector KitINJECT ONE PEN SUBCUTANEOUSLY EVERY OTHER WEEK HYDROcodone-Acetaminophen 5-325 MG Oral TabletTAKE 1 TABLET EVERY 6 HOURS NEEDED FOR PAIN. Hydroxychloroquine Sulfate 200 MG Oral TabletTAKE 1 TABLET TWICE DAILY. Methotrexate 2.5 MG Oral TabletTAKE 4 TABLETS WEEKLY. Pantoprazole Sodium 40 MG Oral Packet predniSONE 5 MG Oral Tablet (more content not included)...NormalUH Touchworks KNEE 3 VIEWSon [id number] 3 VIEWSMRN: [id number] Patient Name: CATY HILLS STUDY: KNEE; 3 VIEWS; Right; 01/06/2022 3:12 pm INDICATION: s/p TKR Z96.659: Status post total knee replacement. ACCESSION NUMBER(S): [id number] ORDERING CLINICIAN: RODNEY LAMB FINDINGS: Three views of the knee show status post joint replacement in good alignment. There are no signs of fracture or dislocation. No other bony abnormalities Electronically signed by: RODNEY LAMB MDNazareth HospitalPost Op (Orthopaedic Surgery)on [id number] Op (Orthopaedic Surgery) Orders Status post total knee replacement Start: HYDROcodone-Acetaminophen 5-325 MG Oral Tablet; TAKE 1 TABLET EVERY 6 HOURS NEEDED FOR PAIN Physical Therapy - General Referral Evaluation and Treatment Evaluate AND Treat Status: Active Requested for: [id number] Xray Knee 3 View; Status:Complete; Done: [id number] 03:12PM Laterality : Right Radiologist to Determine Optimal Study : Y What are the patient's signs and symptoms? : s/p TKR Chief Complaint Post-op RT TKR 12/24/21, 2 weeks out, x-rays today History of Present Illness History of present illness 61-year-old female presented clinic today for her first postop follow-up visit status post right total knee replacement performed December 24, 2021. Overall doing well. She is ambulating with the assistance of a walker. She states her biggest complaint seems to be her pain and how she has had somedifficulty with controlling this. She is continuing with home physical therapy but looking forward to outpatient therapy which she will begin at [facility]. She states that the oxycodone has made her feel wired and is requesting a different medication. She is been taking cyclobenzaprine as well which does seem to help with muscle relaxation however she is having some difficulty sleeping. She has no numbness tingling no fevers chills. Physical exam General: No acute distress and breathing comfortably. Patient is pleasant and cooperative with the examination. Extremity Right knee is neurovascular intact. Range of motion 5 to 90 degrees. Mild edema of the right knee. Tenderness palpation IT band and medial collateral ligament which be expected. No calf swelling or tenderness. 2+ pulses bilateral lower extremity. Compartment soft. Incisions well-healed well approximated without infection. Diagnostics Please see dictated x-ray report Procedure [ none] Assessment Status post right total knee replacement Treatment plan 1. Wound instruction discussed with patient today 2. Prescription for hydrocodone sent to the pharmacy today. Patient was given an order for outpatient physical therapy. We had a discussion in regards to when to take her cyclobenzaprine and her hydrocodone to help her get some sleep. 3. She will follow-up with us in 3 weeks for reevaluation without x-ray. 4. All of the patient's questions were answered. I have personally reviewed the OARRS report for this patient. This report is scanned into the electronic medical record. I have considered the risks of abuse, dependence, addiction and diversion. Pain can reach 8/10 at times. This note was prepared using voice recognition software. The details of this note are correct and have been reviewed, and corrected to the best of my ability. Some grammatical areas may persist related to the [employer] Syed Zaragoza PA-C . 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) Radial head fracture (813.05) (S52.123A) Radial neck fracture (813.06) (S52.133A) Rheumatoid arthritis (714.0) (M06.9) Status post total knee replacement (V43.65) (Z96.659) Wrist pain (719.43) (M25.539) Past Medical History Problems History of Digestive problems (V47.3) (K92.9) History of arthritis (V13.4) (Z87.39) History of balance disorder (V13.89) (Z87.898) History of Numbness and tingling (782.0) (R20.0,R20.2) Surgical History Problems History of Carpal tunnel surgery History of Joint replacement procedure History of Knee replacement History of Spinal surgery Family History Mother Family history of arthritis (V17.7) (Z82.61) Family history of osteoarthritis (V17.89) (Z82.69) Brother Family history of arthritis (V17.7) (Z82.61) Family history of gout (V18.19) (Z82.69) Other Family history of alcoholism (V17.0) (Z81.1) Family history of asthma (V17.5) (Z82.5) Family history of cardiac disorder (V17.49) (Z82.49) Family history of cerebrovascular accident (CVA) (V17.1) (Z82.3) Family history of colitis (V18.59) (Z83.79) Family history of diabetes mellitus (V18.0) (Z83.3) Family history of hypertension (V17.49) (Z82.49) Family history of malignant neoplasm (V16.9) (Z80.9) Social History Problems Denies alcohol consumption (V49.89) (Z78.9) Exercise: Walking Former smoker (V15.82) (Z87.891) No illicit drug use Allergies Medication No Known Drug Allergies Recorded By: Mat Aguilar; 08/28/2019 9:58:58 AM No Known Drug Allergies Recorded By: Amie Martínez; 08/28/2019 10:00:35 AM Current Meds Medication NameInstruction Alendronate Sodium 70 MG Oral TabletTAKE 1 TABLET BY MOUTH EVERY WEEK 30 TO 60 MINUTES PRIOR TO BREAKFASTON AN EMPTY STOMACH. DO NOT LIE DOWN AFTER TAKING MEDICATION Celecoxib 200 MG Oral CapsuleTAKE ONE CAPSULE BY MOUTH DAILY WITH FOOD Esc (more content not included)...NormalUH TouchworksRadiologyon [id number] Knee 3 ViewsPlease click on the link to view the study imagesNormal-[facility] Work Phone: XR Knee 3 ViewsNormal-[facility] [address] [place] Work Phone: Therapy Communicationon 30-07-0423Iykfymz CommunicationMessage Called to discuss OP PT. Patient plans on going to non clinic. Signatures Electronically signed by : Rachel Mcdowlel, PT DPT; Dec 29 2021 12:50PM EST (Author)NormalUH TouchworksBasic Metabolic Panel Reflex Mgon 05-70-8532Qhxlr gap [Moles/Vol]6 mmol/LLow9-15Delta [facility] HospitalComment on above: Performed By: #### BMPX #### [facility] [address] [place] [address] Rdkinxb [Mass/Vol]8.3 mg/dLLow8.5-9.9[facility] Comment on above:Performed By: #### BMPX #### [facility] [address] [place] [address] Dwrnjrwn [Moles/Vol]102 mmol/QLdibya91-325DzwxyDelta County Memorial HospitalComment on above:Performed By: #### BMPX #### [facility] [address] [place] [address] LS1 [Moles/Vol]26 mmol/MYcjuuh35-66ZiicoDelta County Memorial Hospital Comment on above:Performed By: #### BMPX #### [facility] [address] [place] [address] Boysnvkqwv [Mass/Vol]0.61 mg/dLNormal0.50-0.90[facility] HospitalComment on above:Performed By: #### BMPX #### [facility] [address] [place] [address] QZH>60.0Normal>60Delta [facility] HospitalComment on above: Result Comment: >60 mL/min/1.73m2 EGFR, calc. for ages 18 and older using the MDRD formula (not corrected for weight), is valid for stable renal function.Performed By: #### BMPX #### [facility] [address] [place] [address] GQP/1.73 sq M.predicted among blacks MDRD (S/P/Bld) [Vol rate/Area] mL/min/{1.73_m2}Normal>60[facility] HospitalComment on above:Result Comment: >60 mL/min/1.73m2 EGFR, calc. for ages 18 and older using the MDRD formula (not corrected for weight), is valid for stable renal function.Performed By: #### BMPX #### [facility] [address] [place] [address] Shuqnrk [Mass/Vol]96 mg/dLYgfcjg07-98RtpgrChildren's Hospital [place], [place] Comment on above:Performed By: #### BMPX #### [facility] [address] [place] [address] Zekolocjv [Moles/Vol]4.0 mmol/LNormal3.4-4.9[facility] HospitalComment on above:Performed By: #### BMPX #### [facility] [address] [place] [address] Egasla [Moles/Vol]134 mmol/LUnz317-844XuymxDelta County Memorial Hospital Comment on above:Performed By: #### BMPX #### [facility] [address] [place] [address] Iabr nitrogen [Mass/Vol]12 mg/dLNoal8-23[facility] HospitalComment on above:Performed By: #### BMPX #### [facility] [address] [place] [address] Steqf Metabolic Panel w/ Reflex to MGon 22-05-8188Lnzki gap [Moles/Vol]6 mmol/LLowBON SECOURS MERCY HEALTHCalcium [Mass/Vol]8.3 mg/dLLow8.5 - 9.9 mg/dLBON SECOURS MERCY HEALTHChloride [Moles/Vol]102 mmol/LBON SECOURS MERCY HEALTHCO2 [Moles/Vol]26 mmol/LBON SECOURS MERCY HEALTHCreatinine [Mass/Vol]0.61 mg/dL0.5 - 0.9 mg/dLBON SECOURS MERCY HEALTHGFR >60.060 - PINFBON SECOURS MERCY HEALTHComment on above:>60 mL/min/1.73m2 EGFR, calc. for ages 18 and older using the MDRD formula (not corrected for weight), is valid for stable renal function. GFR Non->60.060 - PINFBON MERCY HEALTH ST. CHARLES HOSPITALComment on above: >60 mL/min/1.73m2 EGFR, calc. for ages 18 and older using the MDRD formula (not corrected for weight), is valid for stable renal function. Glucose [Mass/Vol]96 mg/dL70 - 99 mg/dLBON MERCY HEALTH ST. CHARLES HOSPITALInterpretation and review of laboratory resultsAbnormRiverside Behavioral Health CenterPotassium reflex Magnesium4.0BON [facility] HEALTH [facility]. CHARLES HOSPITALSodium [Moles/Vol]134 mmol/LLowDOMINION HOSPITALUrea nitrogen (BldV) [Mass/Vol]12 mg/dL8 - 23 mg/dLBON SANFORD USD MEDICAL CENTERCBCon 37-25-1608Tatdtpdgggycai and review of laboratory resultsAbnormalDOMINION HOSPITALMCHC (RBC) [Mass/Vol]33.6 %33 - 37 %[facility]INION HOSPITALPlatelet distribution width (Bld) [Ratio]13.7 % 11.5 - 14.5 %[facility] MEDICAL CENTERCBC With Platelet No Differentialon 17-04-7328Vwsyodtrkqx distribution width (RBC) [Ratio]13.7 % Tyajzg22.5-14.5[facility] HospitalComment on above:Performed By: #### CBCND #### [facility] [address] [place] [address] MCON95.6 %Pkquck09.0-37.0[facility] HospitalComment on above:Performed By: #### CBCND #### [facility] [address] [place] [address] Dwbisgywhv (Bld) [Volume fraction]32.8 %Low37.0-47.0DOMINION HOSPITALComment on above:Performed By: #### CBCND #### [facility] [address] [place] [address] Knfoebijhw (Bld) [Mass/Vol]11.0 g/dLLow12.0-16.0B[facility] SEC[facility]RS i[facility] HEALTHComment on above:Performed By: #### CBCND #### [facility] [address] [place] [address] YFD (RBC) [Entitic mass]30.7 cuKfxnyj38.0-31.3B[facility]RS i[facility] HEALTHComment on above:Performed By: #### CBCND #### [facility] [address] [place] [address] JBL (RBC) [Entitic vol]91.2 vTEeuwjy52.0-100.0B[facility] i[facility] HEALTHComment on above:Performed By: #### CBCND #### [facility] [address] [place] [address] Owxohvimw (Bld) [#/Vol]156 10*3/lVJlssjj427-421OVV SECOURS W[facility] COMMUNITY HOSPITALPerformance Technology [facility] HEALTH CENTERComment on above:Performed By: #### CBCND #### [facility] [address] [place] [address] JWM (Bld) [#/Vol]3.60 10*6/uLLow4.20-5.40B[facility]RS [employer] Comment on above:Performed By: #### CBCND #### [facility] [address] [place] [address] LHY (Bld) [#/Vol]5.8 10*3/uLNormal4.8-10.8BON SECNoquo Comment on above:Performed By: #### CBCND #### [facility] [address] [place] [address] JL KNEE RIGHT (1-2 VIEWS)on 12-31-4220KM KNEE RIGHT (1-2 VIEWS) EXAMINATION: TWO XRAY VIEWS OF THE RIGHT KNEE 12/24/2021 10:41 am COMPARISON: None HISTORY: ORDERING SYSTEM PROVIDED HISTORY: status post right total knee arthroplasty TECHNOLOGIST PROVIDED HISTORY: Of operative side while in recovery room. Reason for exam:->status post right total knee arthroplasty FINDINGS: Bipolar non cemented right knee replacement. No fracture. No abnormal lucency bone prosthetic interface. IMPRESSION: Negative postoperative right knee. Interpreted by: Royce Morris MD Signed by: Royce Mroris MD 12/24/21 Final resultNoSt. Anthony North Health CampusNegative postoperative right knee. BRON[facility] OLIVO RADIOLOGYEXAMINATION: TWO XRAY VIEWS OF THE RIGHT KNEE 12/24/2021 10:41 am COMPARISON: None HISTORY: ORDERING SYSTEM PROVIDED HISTORY: status post right total knee arthroplasty TECHNOLOGIST PROVIDED HISTORY: Of operative side while in recovery room. Reason for exam:->status post right total knee arthroplasty FINDINGS: Bipolar non cemented right knee replacement. No fracture. No abnormal lucency bone prosthetic interface. Royce Doshi MD - 12/24/2021 EXAMINATION: TWO XRAY VIEWS OF THE RIGHT KNEE 12/24/2021 10:41 am COMPARISON: None HISTORY: ORDERING SYSTEM PROVIDED HISTORY: status post right total knee arthroplasty TECHNOLOGIST PROVIDED HISTORY: Of operative side while in recovery room. Reason for exam:->status post right total knee arthroplasty FINDINGS: Bipolar non cemented right knee replacement. No fracture. No abnormal lucency bone prosthetic interface. IMPRESSION: Negative postoperative right knee. [employer] Phone: radiology Study observation (narrative)[employer] Phone: XR KNEE RIGHT (1-2 VIEWS)Ordered By: Royce Morris on [id number] [place] Work Phone: EKG 12 LeadOrdered By: Unknown Result on 12-18-2021 Atrial Qfay70OLSEPO SECNoquoP Lmnz09ouvethbULXSphere Fluidics HEALTH P-R Auhvwxnd549 msSphere Fluidics HEALTHQ-T Uddkteqw623 msDatadecision SECNoquoQRS Zvmzldyb54 msBON SECNoquoQTc Calculation (Bazett)455 msBON SECAwarepoint HEALTHR Potter-20degreesBON SECAwarepoint HEALTHT Wqxb33zrxjixmBWW SECAwarepoint HEALTHVentricular Ttjk08QJXRUR SECNoquoBON SECNoquoEKG 12 Leadon 70-52-4538Qtxicl sinus rhythm Normal ECG When compared with ECG of 09-NOV-2019 08:49, No significant change was found Confirmed by CONY AREVALO ([id number]) on 12/18/2021 11:47:30 AMMLOZ MUSEResult, Unknown Provider - 12/18/2021 Normal sinus rhythm Normal ECG When compared with ECG of 09-NOV-2019 08:49, No significant change was found Confirmed by CONY AREVALO ([id number]) on 12/18/2021 11:47:30 AM [facility] Work Phone: MRSA DNA Probe, Nasalon 71-91-5060JDSU, DNA, Nasal NegativeNEGBath Community Hospital on above:NEGATIVE: MRSA DNA not detected by nucleic acid amplification. Results should be used as an adjunct to nosocomial control efforts to identify patients needing enhanced precautions. The test is not intended to identify patients with staphylococcal infections. Results should not be used to guide or monitor treatment for MRSA infections. [address] [address] Specimen DescriptionSwabBLANDMANN-JUNGMAN MEMORIAL HOSPITALMRSA, DNA, Nasalon 68-85-8494GNVP, DNA, NasalNegativeNormalPlatte Valley Medical CenterComment on above:Result Comment: NEGATIVE: MRSA DNA not detected by nucleic acid amplification. Results should be used as an adjunct to nosocomial control efforts to identify patients needing enhanced precautions. The test is not intended to identify patients with staphylococcal infections. Results should not be used to guide or monitor treatment for MRSA infections. [address] [address] ([phone] By: #### IMRSA #### [facility] [address] [facility] [id number] [phone] AND SCREENon 71-28-4846TUR/RhNegativeDOMINION HOSPITAL Two types on record-confirmation type not required.S[facility] MEDICAL CENTERAPTTon 59-22-6515bKNV Coag (Bld) [Time][address] CHARLES HOSPITALCommymichigan medical center saginaw on above:Effective 02/06/2020: Heparin Therapeutic Range: 64.0 98.0 seconds. CBC With Platelet and Differentialon 23-41-3938Qphjdvcrb (Bld) [#/Vol]0.0 10*3/uLNormal0.0-0.2MChildren's Hospital [place], [place] SpringsComment on above:Performed By: #### CBCWD #### [facility] [address] [place] [address] Pomdlvlfy/100 WBC (Bld)0.6 %[facility] Comment on above:Performed By: #### CBCWD #### [facility] [address] [place] [address] Bikjtjvkgzb (Bld) [#/Vol]0.2 10*3/uLNormal0.0-0.7[facility] HospitalComment on above:Performed By: #### CBCWD #### [facility] [address] [place] [address] Uwisrdzyxst/100 WBC (Bld)3.2 %[facility] Comment on above:Performed By: #### CBCWD #### [facility] [address] [place] [address] Kkxzakkchpi distribution width (RBC) [Ratio]13.3 %Unojjx62.5-14.5 [facility] HospitalComment on above:Performed By: #### CBCWD #### [facility] [address] [place] [address] Bmsciypbzy (Bld) [Volume fraction]37.4 %Oixxav72.0-47.0[facility] HospitalComment on above:Performed By: #### CBCWD #### [facility] [address] [place] [address] Nnmxonqzwa (Bld) [Mass/Vol]12.4 g/yPZujlal99.0-16.0[facility] HospitalComment on above:Performed By: #### CBCWD #### [facility] [address] [place] [address] Nzhclafvybs (Bld) [#/Vol]2.7 10*3/uLNormal1.0-4.8[facility] HospitalComment on above:Performed By: #### CBCWD #### [facility] [address] [place] [address] Tqivnbbvoop/100 WBC (Bld)44.7 %[facility] Comment on above:Performed By: #### CBCWD #### [facility] [address] [place] [address] ZXQ (RBC) [Entitic mass]30.1 yrFurxxm35.0-31.3MChildren's Hospital [place], [place] SpringsComment on above:Performed By: #### CBCWD #### [facility] [address] [place] [address] ETFE54.1 %Eyamon49.0-37.0[facility] HospitalComment on above:Performed By: #### CBCWD #### [facility] [address] [place] [address] RJI (RBC) [Entitic vol]91.0 vOUkofgp60.0-100.0[facility] HospitalComment on above:Performed By: #### CBCWD #### [facility] [address] [place] [address] Gsjwwblzi (Bld) [#/Vol]0.7 10*3/uLNormal0.2-0.8[facility] HospitalComment on above:Performed By: #### CBCWD #### [facility] [address] [place] [address] Bctqchvaz/100 WBC (Bld)11.0 %[facility] Comment on above:Performed By: #### CBCWD #### [facility] [address] [place] [address] Iwvvxudxwkw (Bld) [#/Vol]2.4 10*3/uLNormal1.4-6.5[facility] HospitalComment on above:Performed By: #### CBCWD #### [facility] [address] [place] [address] Abxjbpoptmk/100 WBC (Bld)40.5 %NormalDelta County Memorial Hospital Comment on above:Performed By: #### CBCWD #### [facility] [address] [place] [address] Wpqsvleew (Bld) [#/Vol]209 10*3/xNRhpjnc157-565LovzcDelta County Memorial HospitalComment on above:Performed By: #### CBCWD #### [facility] [address] [place] [address] WBZ (Bld) [#/Vol]4.11 10*6/uLLow4.20-5.40[facility] HospitalComment on above:Performed By: #### CBCWD #### [facility] [address] [place] [address] WBI (Bld) [#/Vol]6.0 10*3/uLNormal4.8-10.8[facility] HospitalComment on above:Performed By: #### CBCWD #### [facility] [address] [place] [address] LZO with Auto Differentialon 97-90-2520Dlgstiisi (Bld) [#/Vol]0.0 10*3/uL0 - 0.2 K/uLBON SECOURS MERCY HEALTHBasophils/100 WBC (Bld)0.6 %[facility]CY HEALTHEosinophils (Bld) [#/Vol]0.2 10*3/uL0 - 0.7 K/uLBON SECOURS MERCY HEALTHEosinophils/100 WBC (Bld)3.2 %[facility] HOSPITALY HEALTHHematocrit (Bld) [Volume fraction]37.4 %37 - 47 %[facility] MERCY HEALTHHemoglobin (Bld) [Mass/Vol]12.4 g/dL12 - 16 g/dLBON [facility] HEALTHInterpretation and review of laboratory resultsAbnormalBON SECOURS MERCY HEALTHLymphocytes (Bld) [#/Vol] 2.7 10*3/uL1 - 4.8 K/uLBON [facility] OHIOLymphocytes/100 WBC (Bld)44.7 % [facility]ITAL[facility] (RBC) [Entitic mass]30.1 pg27 - 31.3 pgBON SECMER[facility]ALTH URBANA HOSPITALHC (RBC) [Mass/Vol]33.1 %33 - 37 %[facility] (RBC) [Entitic vol]91.0 fL82 - [address] CHARLES HOSPITALMonocytes (Bld) [#/Vol]0.7 10*3/uL0.2 - 0.8 K/uLBON [facility] ST[facility] CHARLES HOSPITALMonocytes/100 WBC (Bld) 11.0 %[facility]OSPITALNeutrophils Absolute2.4 K/uL1.4 - 6.5 K/uLBON [facility]OURS [facility] OHIONeutrophils/100 WBC (Bld)40.5 %[facility] Platelet distribution width (Bld) [Ratio]13.3 %11.5 - 14.5 %[facility] HOSPITALPlatelets (Bld) [#/Vol]209 10*3/uL130 - 400 K/uLBON [facility] RBC (Bld) [#/Vol]4.11 10*6/uLLowBON MERCY HEALTH ST. CHARLES HOSPITALWBC (Bld) [#/Vol]6.0 10*3/uL4.8 - 10.8 K/uLBON [facility] Comprehensive Metabolic Panelon [id number] [Mass/Vol]4.4 g/dLNormal 3.5-4.6MChildren's Hospital Colorado, Colorado SpringsComment on above:Performed By: #### CMP #### [facility] [address] [place] [address] NXA [Catalytic activity/Vol]64 U/SVouwpq61-614LrnhkDelta County Memorial HospitalComment on above:Performed By: #### CMP #### [facility] [address] [place] [address] WMN [Catalytic activity/Vol]16 U/LNormal0-33[facility] HospitalComment on above:Performed By: #### CMP #### [facility] [address] [place] [address] Ljqah gap [Moles/Vol]13 mmol/LNormal9-15[facility] HospitalComment on above:Performed By: #### CMP #### [facility] [address] [place] [address] TBO [Catalytic activity/Vol]18 U/LNormal0-35[facility] HospitalComment on above:Performed By: #### CMP #### [facility] [address] [place] [address] Ztovlvude [Mass/Vol]0.3 mg/dLNormal0.2-0.7[facility] HospitalComment on above:Performed By: #### CMP #### [facility] [address] [place] [address] Sxrplpz [Mass/Vol]9.3 mg/dLNormal8.5-9.9[facility] HospitalComment on above:Performed By: #### CMP #### [facility] [address] [place] [address] Qwkzxnjj [Moles/Vol]101 mmol/FAdviby35-270OkvyoDelta County Memorial HospitalComment on above:Performed By: #### CMP #### [facility] [address] [place] [address] KA3 [Moles/Vol]25 mmol/TYypnpq29-56QtjmcDelta County Memorial Hospital Comment on above:Performed By: #### CMP #### [facility] [address] [place] [address] Wmxbfqvrmz [Mass/Vol]0.94 mg/dLCritically high0.50-0.90Delta [facility] Memorial HospitalComment on above:Performed By: #### CMP #### [facility] [address] [place] [address] CEL>60.0Normal>60Delta [facility] Memorial HospitalComment on above: Result Comment: >60 mL/min/1.73m2 EGFR, calc. for ages 18 and older using the MDRD formula (not corrected for weight), is valid for stable renal function.Performed By: #### CMP #### [facility] [address] [place] [address] WWL/1.73 sq M.predicted among blacks MDRD (S/P/Bld) [Vol rate/Area] mL/min/{1.73_m2}Normal>60Delta [facility] HospitalComment on above:Result Comment: >60 mL/min/1.73m2 EGFR, calc. for ages 18 and older using the MDRD formula (not corrected for weight), is valid for stable renal function.Performed By: #### CMP #### [facility] [address] [place] [address] Nyytofnp (S) [Mass/Vol]2.6 g/dLNormal2.3-3.5[facility] HospitalComment on above:Performed By: #### CMP #### [facility] [address] [place] [address] Oqvcred [Mass/Vol]91 mg/tNOgefzo40-76EwnerChildren's Hospital [place], [place] Comment on above:Performed By: #### CMP #### [facility] [address] [place] [address] Qibjjjnhk [Moles/Vol]3.4 mmol/LNormal3.4-4.9[facility] HospitalComment on above:Performed By: #### CMP #### [facility] [address] [place] [address] Weafsuh [Mass/Vol]7.0 g/dLNormal6.3-8.0[facility] Comment on above:Performed By: #### CMP #### [facility] [address] [place] [address] Czspvx [Moles/Vol]139 mmol/VNlhqqr403-056FybeqDelta County Memorial HospitalComment on above:Performed By: #### CMP #### [facility] [address] [place] [address] Pymw nitrogen [Mass/Vol]21 mg/dLNormal8-23Delta [facility] Memorial HospitalComment on above:Performed By: #### CMP #### [facility] [address] [place] [address] Vmofdhs [Mass/Vol]4.4 g/dL3.5 - 4.6 g/dLBON SECOURS WOOSTER COMMUNITY HOSPITALY HEALTHALP (Bld) [Catalytic activity/Vol]64 U/L40 - 130 U/LBON SECOURS MERCY HEALTHALT [Catalytic activity/Vol]16 U/L0 - 33 U/LBON [facility]RS MERCY HEALTHAnion gap [Moles/Vol]13 mmol/LBON SECOURS MERCY HEALTHAST [Catalytic activity/Vol]18 U/L0 - 35 U/LBON [facility]CY HEALTHBilirubin [Mass/Vol]0.3 mg/dL0.2 - 0.7 mg/dLBON SEC[facility]RS MERCY HEALTHCalcium [Mass/Vol]9.3 mg/dL8.5 - 9.9 mg/dLBON SEC[facility]RS MERCY HEALTHChloride [Moles/Vol]101 mmol/LBON [facility]RS MERCY HEALTHCO2 [Moles/Vol]25 mmol/LBON [facility]RS MERCY HEALTHCreatinine [Mass/Vol]0.94 mg/dLHigh0.5 - 0.9 mg/dL [facility] HEALTHFree PSA/Total PSA [Mass fraction]7.0 g/dL6.3 - 8 g/dL [facility] HEALTHGFR >60.060 - PINFBON SECOURS MERCY HEALTHComment on above:>60 mL/min/1.73m2 EGFR, calc. for ages 18 and older using the MDRD formula (not corrected for weight), is valid for stable renal function. GFR Non->60.060 - PINFBON SECOURS MERCY HEALTHComment on above: >60 mL/min/1.73m2 EGFR, calc. for ages 18 and older using the MDRD formula (not corrected for weight), is valid for stable renal function. Globulin (S) [Mass/Vol]2.6 g/dL2.3 - 3.5 g/dLBON SECOURS MERCY HEALTHGlucose [Mass/Vol]91 mg/dL70 - 99 mg/dLBON MERCY HEALTH ST. CHARLES HOSPITALInterpretation and review of laboratory resultsAbnormalBON MERCY HEALTH ST. CHARLES HOSPITALPotassium [Moles/Vol]3.4 mmol/LBON [facility] CHARLES HOSPITALSodium [Moles/Vol]139 mmol/LBON [facility] HEALTHUrea nitrogen (BldV) [Mass/Vol]21 mg/dL8 - 23 mg/dLBON MERCY HEALTH ST. CHARLES HOSPITALBON [facility] CHARLES HOSPITALLaboratory - Coagulationon 43-06-1433ENF Coag (Bld) [Relative time]0.9 {INR}[facility] [place] [address] [place] Work Phone: Laboratory - Hematology and Cell countson 12-17-2021 Basophils/100 WBC (Bld)0.6 %[facility] [place] [address] [place] Work Phone: Eosinophils/100 WBC (Bld)3.2 %[facility] [place] [address] [place] Work Phone: Lymphocytes/100 WBC (Bld)44.7 %[facility] [place] [address] [place] Work Phone: Monocytes/100 WBC (Bld)11.0 %[facility] [place] [address] [place] Work Phone: Neutrophils/100 WBC (Bld)40.5 %[facility] [place] [address] [place] Work Phone: [phone], DNA, Nasalon 24-98-7039Ddheqyxa DescriptionSwab [facility] Health SystemComment on above:Performed By: #### IMRSA #### [facility] [address] [place] [address] Wirlyvbbzup Urinalysison 13-43-1640Ibodbavk, UANegativeNegative /HPF [facility] CHAR[facility] HOSPITALEpithelial Cells, UA0-2B[facility] CHARLES HOSPITALHyaline Casts, UA0-1BON SECVETER[facility]ALTH ADMINISTRATIONY HEALTHRBC, UA0-2B[facility] CHAR[facility] HOSPITALWBC, UA3-[address] [facility] HOSPITALNo Panel Informationon 51-51-7399ORU [facility] HOSPITALNegativeNormalNEGMP-[facility] [place] [address] [place] Work Phone: Comment on above:NEGATIVE: MRSA DNA not detected by nucleic acid amplification. Results should be used as an adjunctto nosocomial control efforts toidentify patients needing enhanced precautions.The test is not intended to identify patients with staphylococcalinfections. Results should not be used to guide or monitor treatmentfor MRSA infections.[facility] [address] [place], [place] [id number] ([phone]-[facility] [place] [address] [place] Work Phone: [facility]2.6 g/dLNormal2.3-3.5MP-[facility] [place] [address] [place] Work Phone: [phone] U/FWdrjqu4-77DE-Ftwkdv [facility] [place] [address] [place] Work Phone: [phone] U/MFkbpmm9-97WA-Gsqkcu [facility] [place] [place] Work Phone: [phone] g/dLNormal3.5-4.6MP-[facility] [place] [address] [place] Work Phone: [phone] U/DUyziwh84-557MG-Gulytm [facility] [place] [address] [place] Work Phone: [phone] mg/dLNormal0.2-0.7MP-[facility] [place] [address] [place] Work Phone: [phone] g/dLNormal6.3-8.0MP-[facility] [place] [address] [place] Work Phone: [phone] mg/dLNormal8.5-9.9MP-[facility] [place] [address] [place] Work Phone: >60.0Normal>60MP-[facility] [place] [address] [place] Work Phone: Comment on above:>60 mL/min/1.73m2 EGFR, calc. for ages 18 and older using theMDRD formula (not corrected for weight), is valid for stablerenal function.0.94 mg/dLabove high threshold0.50-0.90MP-[facility] [place] [address] [place] Work Phone: [phone] mg/hUGsxjiq2-77FU-Ddpgjk [facility] [place] [address] [place] Work Phone: [phone] mg/qSIzycza36-13DD-Sveare [facility] [place] [address] [place] Work Phone: [phone] {mEq/L}Qppryd6-37RK-Ryoful [facility] [address] [place] Work Phone: [phone] {mEq/L}Gbutex18-62HL-Mlkevi [facility] [place] [address] [place] Work Phone: [phone] {mEq/L}Gnvwoj39-497RL-Spgnud [facility] [place] [address] [place] Work Phone: [phone] {mEq/L}Normal3.4-4.9MP-[facility] [place] [address] [place] Work Phone: [phone] {mEq/L}Ijyase653-476UO-Altetz [facility] [place] [address] [place] Work Phone: [phone] {sec}Qhptad88.3-14.9MP-[facility] [place] [address] [place] Work Phone: [phone] {sec}Mhzcqv60.4-36.8MP-[facility] [place] [address] [place] Work Phone: Comment on above:Effective 02/06/2020:Heparin Therapeutic Range: 64.0 ? 98.0 seconds.NegativeNormalNegativeMP-[facility] [place] [address] [place] Work Phone: [phone] {E.U./dL}Normal< 2.0MP-[facility] [place] [address] [place] Work Phone: [phone] 6Nvlkaf2.0-9.0MP-[facility] [place] [address] [place] Work Phone: ZDVKNJtgvhlyuGwkqfyqfTW-Extnpd [facility] [address] [place] Work Phone: [phone] IndicatedNormalMP-[facility] [place] [address] [place] Work Phone: [phone] 7Iqduhl8.005-1.03MP-[facility] [place] [address] [place] Work Phone: SwzyqPwfbelPuzboBW-Teiyxd [facility] [address] [place] Work Phone: [phone]/YellMP-[facility] [place] [address] [place] Work Phone: [phone]P-Jlqmwg [facility] [place] [address] [place] Work Phone: [phone]L-Wktigv [facility] [place] [address] [place] Work Phone: [phone]F-Pnjwot [facility] [address] [place] Work Phone: [phone] K/yPEbanbj398-092YK-Uxqtzt [facility] [place] [address] [place] Work Phone: [phone] %Oottka15.5-14.5MP-[facility] [address] [place] Work Phone: [phone] %Gnfujv06.0-37.0MP-[facility] [place] [address] [place] Work Phone: [phone] gpUvfgaw39.0-31.3MP-[facility] [address] [place] Work Phone: [phone] K/uLNormal0.2-0.8MP-[facility] [place] [address] [place] Work Phone: [phone] K/uLNormal1.0-4.8MP-[facility] [place] [address] [place] Work Phone: [phone] K/uLNormal1.4-6.5MP-[facility] [address] [place] Work Phone: [phone] K/uLNormal0.0-0.2MP-[facility] [address] [place] Work Phone: [phone] K/uLNormal0.0-0.7MP-[facility] [place] [address] [place] Work Phone: [phone] tMLiosid40.0-100.0MP-[facility] [place] [address] [place] Work Phone: [phone] %Likaeq90.0-47.0MP-[facility] [address] [place] Work Phone: [phone] g/eHQvskap60.0-16.0MP-[facility] [place] [address] [place] Work Phone: [phone] {M/uL}below low threshold4.20-5.40MP-[facility] [place] [address] [place] Work Phone: [phone] K/uLNormal4.8-10.8MP-[facility] [place] [address] [place] Work Phone: [phone] Thromboplastin Timeon 05-56-8673dELL Coag (Bld) [Time]29.0 yTluiln33.4-36.8[facility] HospitalComment on above: Result Comment: Effective 02/06/2020: Heparin Therapeutic Range: 64.0 ? 98.0 seconds.Performed By: #### PTT #### [facility] [address] [place] [address] Bhnbsbzoaqi Timeon 10-57-6949HFV Coag (PPP) [Relative time]0.9 {INR} [facility] SystemComment on above:Performed By: #### PT #### [facility] [address] [place] [address] [place] Coag (PPP) [Time]12.5 dDbmyxe62.3-14.9[facility] HospitalComment on above:Performed By: #### PT #### [facility] [address] [place] [address] Fkihpoj-INRon 27-96-2861FNY Coag (Bld) [Relative time]0.9 {INR}[facility] HEALTHPT Coag (PPP) [Time]12.5 sBON SECWOMAN'S HOSPITAL HEALTHType and 3 cell Screen OB Captureon [id number] and 3 cell Screen OB CapturePATIENT: ABIMBOLA SHOEMAKER LOC: [facility]RIGUEZ BILL# : [id number] : 1960 SEX: F ORDERED BY: ADONIS STEVENS ORDERED : 12/17/2021 15:11 COLLECTED: 12/17/2021 15:51 ORDER : [id number] RECEIVED : 12/17/2021 15:51 Two types on record-confirmation type not required. TEST NAME RESULT UNITS RANGES ABN FL ST ABORH Capture A NEG F Antibody 3 Cell Scrn Captu NEG F [facility] SystemComment on above:Performed By: #### TSO3C #### [facility] [address] [place] [address] Rziwnzzusu with Reflex to Cultureon [id number] Urine NegativeNegativeBON SECOURS MERCY HEALTHBlood, UrineSMALLAbnormalNegativeB[facility]RS MERCY HEALTHClarity, UAClearClearBON SECOURS W[facility] HOSPITALY HEALTHColor, UAYellow Straw/YellowBON SECOURS MERCY HEALTHGlucose, UrNegativeNegative mg/dLB[facility]CY HEALTHInterpretation and review of laboratory resultsAbnormalBON SECOURS MERCY HEALTHKetones Ql (U)NegativeNegative mg/dLB[facility]ALTH Leukocyte esterase Test strip Ql (U)NegativeNegativeB[facility]RS [facility]ALTH Nitrite, UrineNegativeNegativeBON SECOURS MERCY HEALTHpH, UA5.55 - 9[facility] HEALTHProtein, UANegativeNegative mg/dLB[facility] SEC[facility]RS MERCY HEALTHSpecific [place], UA1.0081.005 - 1.03B[facility] HOSPITALY HEALTHUrine Reflex to CultureNot IndicatedBON SECOURS [facility] HOSPITALY HEALTHUrobilinogen, Urine0.2NINFBON SECOURS MERCY HEALTHUrinalysis, reflex to cultureon 76-90-1528Anroz Reflexed to CultureNot IndicatedHighlands Behavioral Health SystemComment on above:Performed By: #### UAR #### [facility] [address] [place] [address] Exhrpinqj Ql (U)NegativeNewYork-Presbyterian [facility] Comment on above:Performed By: #### UAR #### [facility] [address] [place] [address] Wqcxnda (U)ClearNormalClearDelta County Memorial HospitalComment on above:Performed By: #### UAR #### [facility] [address] [place] [address] Yxyvo (U)YellowNormalStraw/YellMerYuma District HospitalComment on above:Performed By: #### UAR #### [facility] [address] [place] [address] Ucgrsvv Ql (U)NegativeNormalMemorial Hospital Central Comment on above:Performed By: #### UAR #### [facility] [address] [place] [address] Tmkcimgnqh Ql (U)SMALLAbMount Sinai Hospital Comment on above:Performed By: #### UAR #### [facility] [address] [place] [address] Bfimmhk Ql (U)[facility] Comment on above:Performed By: #### UAR #### [facility] [address] [place] [address] Gjkbsdohq esterase Test strip Ql (U)[facility] CenterComment on above:Performed By: #### UAR #### [facility] [address] [place] [address] Vkhwgtg Ql (U)[facility] Comment on above:Performed By: #### UAR #### [facility] [address] [place] [address] zN (U)5.5 [pH]Normal5.0-9.0[facility] HospitalComment on above:Performed By: #### UAR #### [facility] [address] [place] [address] Cbhmkuj Ql (U)[facility] Comment on above:Performed By: #### UAR #### [facility] [address] [place] [address] Siojtzhx gravity (U) [Rel density]1.443Wknzvb9.005-1.03[facility] HospitalComment on above:Performed By: #### UAR #### [facility] [address] [place] [address] Pyzungprlzkr Qn (U)0.2 {Tian'U}/dLNormal< 2.0[facility] HospitalComment on above:Performed By: #### UAR #### [facility] [address] [place] [address] Wdjjm Microscopicon 31-60-0108Ecawjbkn LM.HPF (Urine sed) [#/Area] NegativeNormalNegativeDelta County Memorial HospitalComment on above:Performed By: #### UMIC #### [facility] [address] [place] [address] Buiwv Epithelial Cells Popj4-5Vdrged7-2Xeipp[address] [place] [address] Comment on above:Performed By: #### UMIC #### [facility] [address] [place] [address] Foquu Hyaline Casts Yisn6-4Hygfhf1-7Sdgnj[address] [place] [address] Comment on above:Performed By: #### UMIC #### [facility] [address] [place] [address] Expff RBC Ojki2-7Txxaov8-7NbrxjDelta County Memorial HospitalComment on above:Performed By: #### UMIC #### [facility] [address] [place] [address] Qorjr WBC Ngaw1-3Hdzcnk9-6Dviec[address] [place], [place] [address]Comment on above:Performed By: #### UMIC #### [facility] [address] [place] [address] Ctqmmsfzexe Visit (Orthopaedic Surgery)on 31-44-6395Thupswuqnmo Visit (Orthopaedic Surgery)Chief Complaint Pre-op RT TKR 12/24/21 @ [facility] History of Present Illness This patient has pain in the knee that is worsening. The pain increases with activity and with weightbearing, and interferes with daily activities. There is pain with range of motion, limited range of motion, crepitus and swelling. The x-ray demonstrates joint space narrowing, osteophyte formation,and subchondral sclerosis. The symptoms have worsened in spite of extensive medical treatment, therapy, and external support over at least the past 3 months. This is the preop visit to discuss the risks and benefits of the total knee replacement surgery. These risks were fully explained to the patient. With this, and any surgery, infection is a risk, thisis usually 1 to 2%, even higher in diabetics, persons with rheumatoid arthritis, previous surgeries, on oral steroid medications, and obesity. All of these issues were properly addressed. We always assure all sterile techniques will be followed. Patient will also need to be on antibiotics for the next 2 years for any minor surgery, even dental work. For high risk patients, this will be for lifetime. Severe infections may require removal of the prosthesis. It was also explained to the patient that there will be some minor blood loss during the procedure and a blood transfusion may be recommended if medically necessary. It is also noted that with knee surgery a tourniquet is applied to the lower extremity to limit blood loss during the procedure. Pulmonary embolism and blood clots are also discussed with the patient. We discussed that these canbe fatal complications to the surgery. It is explained to the patient that the use of thromboembolic stockings, foot pumps, incentive spirometer's, early mobility, and the use of blood thinners for period of time is the standard of care for prevention of blood clots. Patient's preoperative range of motion is 0-115 degrees. It is explained to the patient that this type of surgery is to decrease arthritis pain and sometimes stiffness may occur. It is important thatthe patient go to physical therapy postoperatively. It is also stated that occasionally we will have to manipulate the knee if pain and stiffness persists. Loosening and wear of the prosthesis are also discussed. The prosthesis normally last between 12 and 15 years. Revisions may be more complicated and with higher risk. Fractures, though rare, may also occur intraoperatively. These fractures may be to the tibia or to the femur. There may be nerve or arterial injuries as well and these are discussed in detail. She plans on getting home physical therapy for the first 2 weeks postop and then transitioning to outpatient at [facility] in [place]. She states she is also been dealing with some left lateral foot and ankle pain over the last few weeks not getting much better at this time. She has some mild tenderness over the peroneal tendon. Lastly, the benefits of spinal anesthesia were explained to the patient. All of the patient's questions and concerns were answered. This note was prepared using voice recognition software. The details of this note are correct and have been reviewed, and corrected to the best of my ability. Some grammatical areas may persist related to the [employer] Syed Zaragoza PA-C . Active Problems Problems Arm pain (729.5) (M79.603) Hip joint pain (719.45) (M25.559) Knee osteoarthritis (715.36) (M17.10) Knee pain (719.46) (M25.569) Left wrist pain (719.43) (M25.532) Osteoporosis, post-menopausal (733.01) (M81.0) Radial head fracture (813.05) (S52.123A) Radial neck fracture (813.06) (S52.133A) Rheumatoid arthritis (714.0) (M06.9) Status post total knee replacement (V43.65) (Z96.659) Wrist pain (719.43) (M25.539) Past Medical History Problems History of Digestive problems (V47.3) (K92.9) History of arthritis (V13.4) (Z87.39) History of balance disorder (V13.89) (Z87.898) History of Numbness and tingling (782.0) (R20.0,R20.2) Surgical History Problems History of Carpal tunnel surgery History of Joint replacement procedure History of Knee replacement History of Spinal surgery Family History Mother Family history of arthritis (V17.7) (Z82.61) Family history of osteoarthritis (V17.89) (Z82.69) Brother Family history of arthritis (V17.7) (Z82.61) Family history of gout (V18.19) (Z82.69) Other Family history of alcoholism (V17.0) (Z81.1) Family history of asthma (V17.5) (Z82.5) Family history of cardiac disorder (V17.49) (Z82.49) Family history of cerebrovascular accident (CVA) (V17.1) (Z82.3) Family history of colitis (V18.59) (Z83.79) Family history of diabetes mellitus (V18.0) (Z83.3) Family history of hypertension (V17.49) (Z82.49) Family history of malignant neoplasm (V16.9) (Z80.9) Social History Problems Denies alcohol consumption (V49.89) (Z78.9) Exercise: Walking Former smoker (V15.82) (Z87.891) No illicit drug (more content not included)...NormalUH TouchworksBONE DENSITY, DEXA 1 OR MORE SITES: AXIAL SKELETONon 49-87-5562TICT DENSITY, DEXA 1 OR MORE SITES: AXIAL SKELETONName: CATY HILLS Date: 1960 Height: 67.0 in. Gender: Female Exam Date: 11/26/2021 Weight: 226.0 lbs. Indications: Family Hist. (Parent hip fracture), Glucocorticoids (Chronic), History of Fracture (Adult), Rheumatoid Arthritis Fractures: Electronically signed by: ANIBAL GUTIERREZ MD Treatments: Electronically signed by: ANIBAL GUTIERREZ MD LEFT FEMUR - TOTAL The bone mineral density : 0.929 g/cm2 T-score : -0.6 % of young normal mean :92% Z-score : -0.5 % of age matched mean : 93% % change vs. Previous : - % change vs. Baseline : baseline *Indicates significant change based on 95% confidence interval. LEFT FEMUR - NECK The bone mineral density : 0.861 g/cm2 T-score : -1.3 % of young normal mean: 83% Z-score : -0.8 % of age matched mean : 89% % change vs. Previous : - % change vs. Baseline : baseline *Indicates significant change based on 95% confidence interval. SPINE The bone mineral density is T-score : % of young normal mean is Z-score : % of age matched mean is % change vs. Previous : % change vs. Baseline : *Indicates significant change based on 95% confidence interval. RIGHT FOREARM Radius 33% The bone mineral density : 0.897 g/cm2 T-score : 0.2 % of young normal mean :102% Z-score : 1.2 % of age matched mean : 113% % change vs. Previous : - % change vs. Baseline : baseline *Indicates significant change based on 95% confidence interval. World Health Organization (WHO) criteria for post-menopausal, Women: Normal: T-score at or above -1 SD Osteopenia: T-score between -1 and -2.5 SD Osteoporosis: T-score at or below -2.5 SD 10-Year Fracture Risk: Major Osteoporotic Fracture 42.6% Electronically signed by: ANIBAL GUTIERREZ MD Hip Fracture 2.4% Electronically signed by: ANIBAL GUTIERREZ MD Reported Risk Factors Family Hist. (Parent hip fracture), Glucocorticoids (Chronic), History of Fracture (Adult), Rheumatoid Arthritis Interpretation: According to World Health Organization criteria, classification is low bone mass (osteopenia). Follow-up exam recommended on November 2023 or sooner as clinically warranted. Electronically signed by: ANIBAL GUTIERREZ MDNazareth HospitalC Reactive Protein, Serumon 64-12-2188QEJ [Mass/Vol]0.32 mg/dL [facility] [address] DO Work Phone: Comment on above:REF VALUE< 1.00Complete Blood Count + Differentialon 68-88-0020Jsgbpdziq/100 WBC (Bld)1.2 %0.0 - 2.0 [facility] [address] DO Work Phone: Erythrocyte distribution width (RBC) [Ratio]12.5 %See NegwwWB-Cjrgzxxupafd-IfglamfChildren's [place] 2500 DO Work Phone: Comment on above:Reference Range: 11.5 - 14.5 Hematocrit (Bld) [Volume fraction]37.6 %See [facility] 2500 DO Work Phone: Comment on above:Reference Range: 36.0 - 46.0 Hemoglobin (Bld) [Mass/Vol]12.2 g/dLSee [facility] 2500 DO Work Phone: Comment on above:Reference Range: 12.0 - 16.0 Lymphocytes/100 WBC (Bld)36.7 %See [facility] 2500 DO Work Phone: Comment on above:Reference Range: 13.0 - 44.0MCHC (RBC) [Mass/Vol]32.4 g/dLSee [facility] 2500 DO Work Phone: Comment on above:Reference Range: 32.0 - 36.0MCV (RBC) [Entitic vol]91 fL80 - 507AQ-Faqivicdmzqx-BtvvhofChildren's [place] 2500 DO Work Phone: Monocytes/100 WBC (Bld)11.0 %2.0 - 10.0 [facility] [address] DO Work Phone: Neutrophils/100 WBC (Bld)47.6 %See Below [facility] [address] DO Work Phone: Comment on above:Reference Range: 40.0 - 80.0Platelets (Bld) [#/Vol]218 10*3/uL150 - 051PX-Lhkpoxnqrdmx-EqzmhwgChildren's [place] 2500 DO Work Phone: RBC (Bld) [#/Vol]4.12 {x10E12/L}See Below [facility] 2500 DO Work Phone: Comment on above:Reference Range: 4.00 - 5.20WBC (Bld) [#/Vol]4.9 10*3/uL4.4 - 11.6ON-Iewpdpfqljzc-RnmrjwcUnited [facility] 2500 DO Work Phone: Complete Blood Count + Differential0.06 {x10E9/L}See SpuwmKF-Veevzrtxxarz-TyppxycChildren's [place] 2500 DO Work Phone: Comment on above:Reference Range: 0.00 - 0.10Complete Blood Count + Differential0.16 {x10E9/L}See EgreqIA-Cnhbrkvgynxx-BfhwjtjChildren's [place] 2500 DO Work Phone: Comment on above:Reference Range: 0.00 - 0.70Complete Blood Count + Differential0.54 {x10E9/L}See EgtwiQY-Dulprxwumqme-NijywopChildren's [place] 2500 DO Work Phone: Comment on above:Reference Range: 0.10 - 1.00Complete Blood Count + Differential1.80 {x10E9/L}See XlqtsEB-Tpmwlnwtkaja-HiceexaChildren's [place] 2500 DO Work Phone: Comment on above:Reference Range: 1.20 - 4.80Complete Blood Count + Differential2.34 {x10E9/L}See GqhzfQI-Bvicbbelniuj-FetytkbChildren's [place] 2500 DO Work Phone: Comment on above:Reference Range: 1.20 - 7.70Complete Blood Count + Differential3.3 %0.0 - 6.2ZI-Mmujsxgwewti-TxlxemeChildren's [place] 2500 DO Work Phone: Complete Blood Count + Differential0.2 %0.0 - 0.9 [facility] 2500 DO Work Phone: Comment on above:Immature Granulocyte Count (IG) includes promyelocytes, myelocytes and metamyelocytes but does not include bands. Percent differential counts (%) should be interpreted in the context of the absolute cell counts (cells/L).Laboratory - Chemistry and Chemistry - [facility] 03-98-6319Hurylci BCP dye [Mass/Vol]3.8 g/dL3.4 - 5.0 [facility] [address] DO Work Phone: ALP [Catalytic activity/Vol]55 U/L33 - 136 [facility] 2500 DO Work Phone: ALT With P-5'-P [Catalytic activity/Vol]18 U/L7 - 45 [facility] 2500 DO Work Phone: Comment on above:Patients treated with Sulfasalazine may generate falsely decreased results for ALT.Anion gap [Moles/Vol]13 mmol/L10 - 98MA-Awrlknbpagkn-XhpbjvkChildren's [place] 2500 DO Work Phone: AST With P-5'-P [Catalytic activity/Vol]19 U/L9 - 39 [facility] [address] DO Work Phone: Bilirubin [Mass/Vol]0.4 mg/dL0.0 - 1.2 [facility] 2500 DO Work Phone: Calcium [Mass/Vol]8.9 mg/dL8.6 - 10.3 [facility] 2500 DO Work Phone: Chloride [Moles/Vol]105 mmol/L98 - 107 [facility] [address] DO Work Phone: CO2 [Moles/Vol]25 mmol/L21 - 60AF-Vlnnqqshgbui-JojymoqChildren's [place] 2500 DO Work Phone: Creatinine [Mass/Vol]0.66 mg/dLSee Below [facility] [address] DO Work Phone: Comment on above:Reference Range: 0.50 - 1.05Glucose [Mass/Vol]83 mg/dL74 - 87OM-Qdvqdmxgenmd-JynybzpUnited [facility] 2500 DO Work Phone: Potassium [Moles/Vol]3.8 mmol/L3.5 - 5.3 [facility] 2500 DO Work Phone: Protein [Mass/Vol]6.5 g/dL6.4 - 8.2 [facility] 2500 DO Work Phone: Sodium [Moles/Vol]139 mmol/L136 - 145 [facility] 2500 DO Work Phone: Urea nitrogen [Mass/Vol]23 mg/dL6 - 23 [facility] [address] DO Work Phone: No Panel Informationon 11-26-2021>90>90 [facility] [address] DO Work Phone: Comment on above:CALCULATIONS OF ESTIMATED GFR ARE PERFORMED USING THE 2020 CKD-EPI STUDY REFIT EQUATION WITHOUT THERACE VARIABLE FOR THE IDMS-TRACEABLE CREATININE METHODS.https://jasn.asnjournals.org/content/early//ASN.4645865538 Sedimentation Rate, Erythrocyteon 86-61-0596PXI (Bld) [Velocity]8 mm/h0 - 30 [facility] [address] DO Work Phone: Comment on above:Please note new reference ranges as of 08/10/2021.Ran on alternate instrumentReference Ranges: Males:0-15 Females: 0- 20 Children under 18: 0-10Xray Bone Density, Dexa 1 or More Siteson 11-26-2021 DXA Bone [Mass/Area] Bone ocennkoDfawttFP-Gzgufssqhrcp-SujzxkhChildren's [place] 2500 DO Work Phone: XR Ankle Complete Righton 52-96-5085CE Ankle Complete RightCLINICAL HISTORY: Patient fell yesterday. Rolled ankle with lateral pain. COMPARISON: None. TECHNIQUE: 3 Views were obtained. FINDINGS: No signs of fracture, dislocation or osseous destruction.Joint spaces are well maintained. There is a 3.5 mm plantar calcaneal spur. Bones are demineralized. Mild marginal spurring of distal tibia. Mild soft tissue swelling laterally. IMPRESSION: NO FRACTURE OR DISLOCATION. MILD SOFT TISSUE SWELLING LATERALLY. PLANTAR HEEL SPUR. Report reported and signed by Amber Vegas on 10/19/2021 1315[facility] HospitalXR Hip Complete Right*on 25-41-9177AL Hip Complete Right* CLINICAL HISTORY: Patient fell yesterday. Right hip pain. COMPARISON: None. TECHNIQUE: 3 Views were obtained. FINDINGS: No signs of fracture, dislocation or osseous destruction.Hip joint spaces are well maintained.SI joints are symmetrical. There are postoperative changes at the L4, L5 and S1 levels. Pedicle screws have been inserted on the right side at this level. L4-5 disc is narrowed. L5-S1 disc is narrowed. IMPRESSION: NO FRACTURE OR DISLOCATION. DEGENERATIVE AND POSTOPERATIVE CHANGES IN LUMBAR SPINE. Report reported and signed by Amber Vegas on 10/19/2021 1319[facility] HospitalXR Knee Complete Right*on 44-77-8060LI Knee Complete Right*CLINICAL HISTORY: Patient fell yesterday. Lateral knee pain. COMPARISON: None. TECHNIQUE: 5 Views were obtained. FINDINGS: No signs of fracture, dislocation or osseous destruction. There is mild narrowing of the medial lateral compartments. There is marginal spurring of the tibial spines, lateral tibial plateau, lateral femoral condyle, posterior patella, medial femoral condyle and medial tibial plateau. There is joint space effusion in the patellar bursa. IMPRESSION: NO FRACTURE OR DISLOCATION. DEGENERATIVE CHANGES WITH NARROWING OF THE MEDIAL AND LATERAL COMPARTMENTS. JOINT SPACE EFFUSION. Report reported and signed by Amber Vegas on 10/19/[address]NormalSt[address] Elizabeth HospitalTobacco Screening.on 67-07-2425Jdbk risk assessmentb) One or more falls in the last yearMills-[facility] Work Phone: Tobacco use status CPHSb) NoMRancho Springs Medical [facility] Work Phone: Radiologyon 36-22-0169GH Knee 4 ViewsNoHemet Global Medical [facility]icsL[facility] Work Phone: Ferritinon 02-91-4907JPRH696.3 ng/eUWhpk44.0-150.0 St[address] Elizabeth HospitalComment on above:Performed By: #### FE DANIELA Paz VITD #### [facility] [address] [place], [place] [id number] Profileon 08-11-2021%FESAT31 %Ksmujx09-55XbtcwqpcMiddletown HospitalComment on above:Performed By: #### FE DANIELA Paz VITD #### [facility] [address] [place], [place] [id number] ug/rMEmlvac25-086Rgbinfyv [place] Medical SpecialistComment on above:Result Comment: Reference range change 02/18/2017. Prior reference range F 37-145 ug/dL, M 59-158 ug/dL.Performed By: #### FE DANIELA Paz, VITD #### [facility] [address] [place], [place] [id number] ug/uBTduqwa461-708Nfdrjudj [place] [employer] Operator Comment on above:Performed By: #### FE DANIELA Paz, VITD #### [facility] [address] [place], [place] [id number] ug/eXJitlnz533-595Fnaqzuju [place] [employer] Comment on above:Performed By: #### FE DANIELA Paz, SON #### [facility] [address] [facility] [place] [id number] - Strep pneumo Ab 23 serotypeson 97-55-2472ZSCSWVYJ 1 (1) 0.6NormalNorthern Brazos Medical SpecialistComment on above:Order Comment: [facility] performed at: EZ, [employer],, [address] [place] [address], , City Secretary: Abeba Serrano MD,PhD,MIRTA [facility] Collection Date/Time: [facility] Results Received Date/Time: [facility] Reported Date/Time: [id number] By: #### [id number] #### [facility] [address] [place], [place] [address]ZFDCAHJA 12 (12F)<0.3NormalNortverde valley medical centern [facility]ico[facility] Memorial HospitalSoyfreeze Operator Comment on above:Order Comment: [facility] performed at: EZ, [employer],, [address] [place] [address], , City Secretary: Abeba Serrano MD,PhD,MIRTA [facility] Collection Date/Time: [facility] Results Received Date/Time: [facility] Reported Date/Time: [id number] By: #### [id number] #### [facility] [address] [place], [place] [address]WGSOUDEO 14 (14)0.9NormalNorthern [facility] SpecialistComment on above:Order Comment: [facility] performed at: EZ, [employer] [facility],, [address] [place] [address], , City Secretary: Abeba Serrano MD,PhD,MIRTA [facility] Collection Date/Time: [facility] Results Received Date/Time: [facility] Reported Date/Time: [id number] By: #### [id number] #### [facility] [address] [place], [place] [address]TXBDCPIZ 17 (17F)0.5[facility] HospitalCommymichigan medical center [place] on above:Order Comment: [facility] performed at: EZ, [facility],, [address] [place], [place] [address]te[place], [place], , City Secretary: Abeba Serrano MD,PhD,MIRTA [facility] Collection Date/Time: [facility] Results Received Date/Time: [facility] Reported Date/Time: [id number] By: #### [id number] #### [facility] [address] [place], [place] [address]BXUHLZVC 19 (19F)1.5[facility] Avon HospitalComment on above:Order Comment: [facility] performed at: EZ, [facility],, [address] [place], [place] [address]te[place], [place], , City Secretary: Abeba Serrano MD,PhD,MIRTA [facility] Collection Date/Time: [facility] Results Received Date/Time: [facility] Reported Date/Time: [id number] By: #### [id number] #### [facility] [address] [place], [place] [address]BCNJEFIV 2 (2)5.1NRegency Hospital CompanyCommymichigan medical center [place] on above:Order Comment: [facility] performed at: EZ, [facility],, [address] [place], [place] [address], [place], , City Secretary: Abeba Serrano MD,PhD,MIRTA [facility] Collection Date/Time: [facility] Results Received Date/Time: [facility] Reported Date/Time: [id number] By: #### [id number] #### [facility] [address] [place] [address]CSYBHWCL 20 (20)3.8NormalNortverde valley medical centern [facility] SpecialistComment on above:Order Comment: [facility] performed at: EZ, [facility],, [address] [place] [address], , City Secretary: Abeba Serrano MD,PhD,MIRTA [facility] Collection Date/Time: [facility] Results Received Date/Time: [facility] Reported Date/Time: [id number] By: #### [id number] #### [facility] [address] [place] [address]QWHPZXYT 22 (22F)0.6[address] Anne Hospital SpecialistComment on above:Order Comment: [facility] performed at: EZ, [facility],, [address] [place] [address], , City Secretary: Abeba Serrano MD,PhD,MIRTA [facility] Collection Date/Time: [facility] Results Received Date/Time: [facility] Reported Date/Time: [id number] By: #### [id number] #### [facility] [address] [place], [place] [address]QPOLPTNM 23 (23F)<0.3NormalNortRiverside Methodist HospitalSoyfreeze Operator Comment on above:Order Comment: [facility] performed at: EZ, [facility],, [address] [place] [address], , City Secretary: Abeba Serrano MD,PhD,MIRTA [facility] Collection Date/Time: [facility] Results Received Date/Time: [facility] Reported Date/Time: [id number] By: #### [id number] #### [facility] [address] [place] [address]NFYVAOBM 26 (6B)0.4NormalNorthern [facility] Hospital SpecialistComment on above:Order Comment: [facility] performed at: EZ, [facility],, [address] [place] [address], , City Secretary: Abeba Serrano MD,PhD,MIRTA [facility] Collection Date/Time: [facility] Results Received Date/Time: [facility] Reported Date/Time: [id number] By: #### [id number] #### [facility] [address] [place] [address]YYZXXJHR 3 (3)0.5NormalNorthern [facility] SpecialistComment on above:Order Comment: [facility] performed at: , [facility],, [address] [place] [address], , City Secretary: Abeba Serrano MD,PhD,MIRTA [facility] Collection Date/Time: [facility] Results Received Date/Time: [facility] Reported Date/Time: [id number] By: #### [id number] #### [facility] [address] [place] [address]WJOONTWE 34 (10A)1.7NormalNorthern [facility] SpecialistComment on above:Order Comment: [facility] performed at: EZ, [facility],, [address] [place] [address], , City Secretary: Abeba Serrano MD,PhD,MIRTA [facility] Collection Date/Time: [facility] Results Received Date/Time: [facility] Reported Date/Time: [id number] By: #### [id number] #### [facility] [address] [place] [address]WCNRFCTT 4 (4)<0.3NormalNorthern [facility] SpecialistComment on above:Order Comment: [facility] performed at: , [facility],, [address] [place] [address], , City Secretary: Abeba Serrano MD,PhD,MIRTA [facility] Collection Date/Time: [facility] Results Received Date/Time: [facility] Reported Date/Time: [id number] By: #### [id number] #### [facility] [address] [place], [place] [address]ZUUZFJGU 43 (11A)0.3NormalNortverde valley medical centern Johnson Memorial HospitalComment on above:Order Comment: [facility] performed at: , [employer],, [address] [place] [address], , City Secretary: Abeba Serrano MD,PhD,MIRTA [facility] Collection Date/Time: [facility] Results Received Date/Time: [facility] Reported Date/Time: [id number] By: #### [id number] #### [facility] [address] [place], [place] [address]VSGMWFAU 5 (5)0.9NormalNorthern Johnson Memorial HospitalComment on above:Order Comment: [facility] performed at: , [employer],, [address] [place] [address], , City Secretary: Abeba Serrano MD,PhD,MIRTA [facility] Collection Date/Time: [facility] Results Received Date/Time: [facility] Reported Date/Time: [id number] By: #### [id number] #### [facility] [address] [place], [place] [address]ABYEJLMR 51 (7F)0.8NormalNorthern [facility] SpecialistComment on above:Order Comment: [facility] performed at: EZ, [facility],, [address] [place] [address], , City Secretary: Abeba Serrano MD,PhD,MIRTA [facility] Collection Date/Time: [facility] Results Received Date/Time: [facility] Reported Date/Time: [id number] By: #### [id number] #### [facility] [address] [place] [address]CBXULRVN 54 (15B)1.5NormalNorthern Brazos Medical SpecialistComment on above:Order Comment: [facility] performed at: EZ, [facility],, [address] [place] [address], , City Secretary: Abeba Serrano MD,PhD,MIRTA [facility] Collection Date/Time: [facility] Results Received Date/Time: [facility] Reported Date/Time: [id number] By: #### [id number] #### [facility] [address] [place] [address]BDEEQHFY 56 (18C)<0.3NormalNorthern [place]os Soyfreeze Operator Comment on above:Order Comment: [facility] performed at: EZ, [facility],, [address] [place] [address], , City Secretary: Abeba Serrano MD,PhD,MIRTA [facility] Collection Date/Time: [facility] Results Received Date/Time: [facility] Reported Date/Time: [id number] By: #### [id number] #### [facility] [address] [place] [address]IUMQLXVN 57 (19A)<0.3NormalNorthern [place]raz[place] Soyfreeze Operator Comment on above:Order Comment: [facility] performed at: EZ, [facility],, [address] [place] [address], , City Secretary: Abeba Serrano MD,PhD,MIRTA [facility] Collection Date/Time: [facility] Results Received Date/Time: [facility] Reported Date/Time: [id number] By: #### [id number] #### [facility] [address] [place], [place] [address]OYXPXFUO 68 (9V)<0.3NormalNorthern [facility] SpecialistComment on above:Order Comment: [facility] performed at: , [employer]/[facility],, [address] [place] [address], , City Secretary: Abeba Serrano MD,PhD,MIRTA [facility] Collection Date/Time: [facility] Results Received Date/Time: [facility] Reported Date/Time: [id number] By: #### [id number] #### [facility] [address] [place], [place] [address]PYHRJYGA 70 (33F)0.4NormalNorthern [facility] SpecialistComment on above:Order Comment: [facility] performed at: [facility], [employer],, [address] [place] [address], , City Secretary: Abeba Serrano MD,PhD,MIRTA [facility] Collection Date/Time: [facility] Results Received Date/Time: [facility] Reported Date/Time: [id number] Comment: Serologic correlates of protection against pneumococcal disease have not been rigorously established for all patient populations. Published data and expert consensus (including WHO) suggest protection from invasive disease usually occurs at levels >or =0.3-0.50 mcg/mL for healthy children receiving pneumococcal conjugate vaccines. Higher titers may be necessary to protect from non-invasive infection (e.g., pneumonia, otitis, sinusitis). Expert opinion suggests that a cut-off of >= 1.3 mcg/mL may be a more relevant value to assess antibody responses after pneumococcal polysaccharide vaccines or for immunocompromised patients. In addition to antibody quantity, protection also depends on antibody avidity and opsonophagocytic activity. Some experts consider that post-vaccination (4-6 weeks) IgG seroconversion and/or 2- to 4-fold rise in IgG titers for >50% to 70% of vaccine serotypes demonstrates a normal post-vaccine serologic response. Persons with high initial serotype-specific titers may have less robust responses. [employer] uses a multi-analyte immunodetection (MAID) method. The method employs the Miradore flow cytometric system which measures multiple analytes simultaneously. The FDA standard reference serum 89-S is used as the calibration standard. Results are reported in mcg/mL. This assay detects all of the 23 of the serotypes in the 23-valent polysaccharide vaccine and 12 of the 13 serotypes in the 13-valent conjugate vaccine. This test was developed and its analytical performance characteristics have been determined by [employer]. It has not been cleared or approved by FDA. This assay has been validated pursuant to the CLIA regulations and used for clinical purposes. For additional information, please refer to http://education.Wistia.Evolv/faq/KME903 (This link is being provided for informational/ educational purposes only.)Performed By: #### [id number] #### [facility] [address] [place], [place] [address]HZHYPLGB 8 (8)0.9NormalNortverde valley medical centern Johnson Memorial HospitalComment on above:Order Comment: [facility] performed at: [employer], [address] [place] [address], [address], City Secretary: Abeba Serrano MD,PhD,MIRTA [facility] Collection Date/Time: [facility] Results Received Date/Time: [facility] Reported Date/Time: [id number] By: #### [id number] #### [facility] [address] [place], [place] [address]CEHUJDNT 9 (9N)0.7NormalNorthern Johnson Memorial HospitalComment on above:Order Comment: [facility] performed at: EZ, [facility],, [address] [place], [address], City Secretary: Abeba Serrano MD,PhD,MIRTA [facility] Collection Date/Time: [facility] Results Received Date/Time: [facility] Reported Date/Time: [id number] By: #### [id number] #### [facility] [address] [place], [place] [address]Rbveidi B12/Folateon 92-78-1795Gexijjhgm (Vitamin B12) [Mass/Vol] 695 pg/zLXunczc909-436MjcpjcstSt. Elizabeth HospitalComment on above:Performed By: #### B12/Fol #### [facility] [address] [place], [place] [address]MWF05.4 ng/mLNormal>4.7[facility] Comment on above:Result Comment: Reference range change 02/18/2017. Prior reference range F 4.8-37.3 ng/mL, M 4.5-32.2 ng/mL.Performed By: #### B12/Fol #### [facility] [address] [place], [place] [id number] D 25-OHon 21-89-2088BTS D 25 OH58 ng/mlNormal>29 St[address] [facility] HospitalComment on above:Result Comment: Vitamin D Status Deficiency <20 ng/mL Insufficiency 20-29 ng/mL Optimal 30-100 ng/mL Possible Toxicity >=150 ng/mLPerformed By: #### FE Prof, FERR, VITD #### [facility] [address] [place], [place] [id number] Foot Complete Left*on 39-96-0677UL Foot Complete Left* CLINICAL HISTORY: 1 month history of foot pain COMPARISON: 06/08/20 TECHNIQUE: Left foot radiographs RESULT: No fracture or dislocation. No significant soft tissue swelling. Joint spaces are maintained. Small plantar calcaneal enthesophyte. IMPRESSION: No acute findings. Report reported and signed by SUREKHA LUX on 07/18/2021 1321NormalNoVeterans Health AdministrationC Reactive Protein, Serumon 32-16-0101QYJ [Mass/Vol]0.59 mg/dLColusa Regional Medical CenterMi-Pay Work Phone: Comment on above:REF VALUE< 1.00Citrulline Antibodyon 39-74-7223Hpjeug citrullinated peptide IgG Qn1 U/MLColusa Regional Medical CenterPlymouth Work Phone: Comment on above:THE TEST FOR ANTIBODIES SPECIFIC FOR CYCLICCITRULLINATED PEPTIDE (CCP) HAS SHOWN TO BEVALUABLE IN THE DIAGNOSIS OF RHEUMATOIDARTHRITIS. THE DIAGNOSTIC VALUE OFANTIBODIES TO CCP IN JUVENILE RHEUMATOIDARTHRITIS PATIENTS HAS NOT BEEN DETERMINED.ANTIBODIES TO CENTROMERE OR SS-A AND MYELOMA IGG MAY BE REACTIVE IN THIS ASSAY. REF VALUES NEGATIVE < 3 U/ML POSITIVE >=3 U/MLFalls Risk Screeningon [id number] risk assessmentb) One or more falls in the last jkuqFG-Rvnwctjhuvhr-AqswevaChildren's [place] 2500 DO Work Phone: Hepatitis Panel, Acute (HCFA)on [id number] IgM IA QlNon-ReactiveSee [facility] Work Phone: Comment on above:SOURCE: Reference Range: NONREACTIVE Biotin interference may cause falsely decreased results. Patients taking a Biotin dose of up to 5 mg/day should refrain from taking Biotin for 24 hours before sample collection. Providers may contact their local laboratory for further information.Hepatitis Panel, Acute (HCFA)Non-ReactiveSee [facility] Work Phone: Comment on above:Reference Range: NONREACTIVE Results from patients taking biotin supplements or receiving high-dosebiotin therapy should be interpreted with caution due to possible interference with this test. Providers may contact their local laboratory for further information.Reference Range: NONREACTIVE Biotin interference may cause falsely decreased results. Patients taking a Biotin dose of up to 5 mg/day should refrain from taking Biotin for 24 hours before sample collection. Providers may contact their local laboratory for further information.Laboratory - Serology - non-microon [id number] protein B Ab Qn (S)<0.2[facility] Work Phone: comment on above:REF VALUES < 1.0 = NEGATIVE >=1.0 = POSITIVEChromatin Ab Qn0.2 {AI}[facility] Work Phone: comment on above:REF VALUES < 1.0 = NEGATIVE >=1.0 = POSITIVEDNA double strand Ab Qn (S)[IU]/mLMarian Regional Medical Center Work Phone: Comment on above:REF VALUESNEGATIVE: <= 4 IU/MLEQUIVOCAL: 5- 9 IU/MLPOSITIVE: >=10 IU/MLJo-1 extractable nuclear Ab IA Ql (S)<0.2MKaiser [facility] San [facility] Center Work Phone: Comment on above:REF VALUES < 1.0 = NEGATIVE >=1.0 = POSITIVENuclear Ab Hep2 substrate Ql (S)NegativeNEGATIVEMarian Regional Medical Center Work Phone: Comment on above:The Antinuclear Antibody (CHERIE) test was performed using indirect immunofluorescence assay with HEp-2 cells slide. Ribonucleoprotein extractable nuclear Ab IA Qn (S)0.2 {AI}[facility] Work Phone: Comment on above:REF VALUES < 1.0 = NEGATIVE >=1.0 = POSITIVERibosomal P Ab Qn (S)<0.2MKaiser South San Francisco Medical Center Work Phone: Comment on above:REF VALUES < 1.0 = NEGATIVE >=1.0 = POSITIVESCL-70 extractable nuclear Ab IA Ql (S)<0.2MKaiser [facility] Work Phone: Comment on above:REF VALUES < 1.0 = NEGATIVE >=1.0 = POSITIVESjogrens syndrome-A extractable nuclear Ab IA Qn (S)<0.2MKaiser South San [facility] Center Work Phone: Comment on above:REF VALUES < 1.0 = NEGATIVE >=1.0 = POSITIVESjogrens syndrome-B extractable nuclear Ab IA Qn (S)<0.2MP[facility] Work Phone: Comment on above:REF VALUES < 1.0 = NEGATIVE >=1.0 = POSITIVESmith extractable nuclear Ab IA Qn (S)<0.2MP-[facility] Work Phone: Comhrln on above:REF VALUES < 1.0 = NEGATIVE >=1.0 = POSITIVESmith extractable nuclear Ab+Ribonucleoprotein extractable nuclear Ab IA Ql (S)<0.2MPShriners Hospital Work Phone: Comtine on above:REF VALUES < 1.0 = NEGATIVE >=1.0 = POSITIVEMISCELLANEOUS TESTon [id number] TESTVECSelect Medical Specialty [facility]-[place] Work Phone: MISCELLANEOUS TESTSEE [facility] 2500 DO Work Phone: Comxdww on above:TEST RESULT UNITS Vectra(R)Vectra Score 32Change in ScoreMultiple Vectra scores required for meaningful change calculationVectra Score InterpretationPatient has a Moderate Vectra Score and is at limited risk for radiographic progression. Consider adjusting treatment regimen to reduce inflammation or observing the patient, and retesting at the next clinical visit.Risk of Radiographic Progress 4 %1-Year Risk of Radiographic ProgressionVectra(R) Level MODERATE Vectra Disease Activity Levels: High:45 to 100 Moderate: 30 to 44 Low: 1 to 29Test Description VECTRA SCORE DESCRIPTION Vectra Score measures the concentrations of 12 serum proteins. An algorithm is applied to these concentrations to calculate a disease activity score on a scale of 1 to 100. The Vectra Score is personalized based on the age, gender, and adiposity of the patient. RISK OF RADIOGRAPHIC PROGRESSION (RP): The risk of RP is shown as a function of Vectra Score. (see chart right). The definition of RP is a 1-year total Sharp score change of >5 units. Increased risk of RP means a greater chance of irreversible joint damage. Patient serostatus may affect the risk of radiographic progression. Thus, the actual risk of radiographic progression may be higher if this patient is seropositive and lower if this patient is seronegative. CHANGE IN SCORE DESCRIPTION Change in Score is assessed in relation to the Minimally Important Difference (MID) for Vectra. The MID for patients with a Moderate or High Vectra Score is 8.0. VECTRA SCORES OVER TIME Complete score history shown on last page. As of March 07, 2017 the Vectra Score is adjusted based on the age, gender and adiposity of the patient. This test was developed and its performance characteristics determined by [employer]. It has not been cleared or approved by the Food and Drug Administration. (C)2020 [employer]. All Rights Reserved. This document contains private and confidential health information protected by state and federal law. If you have received this document in error please call [phone]. V.1.0 12-23SAA Result 3.9 ug/mL RA Range: (0.29-85) RA Percentile: 67% CRP Result 4.7 mg/L RA Range: (0.19-92) RA Percentile: 53%VCAM-1 Result 0.31 ug/mL RA Range: (0.39-1.2) RA Percentile: <1%IL-6 Result 9.7 pg/mL RA Range: (2.5-200) RA Percentile: 43%TNF-RI Result 1.1 ng/mL RA Range: (0.8- 3.9) RA Percentile: 15%EGF Result 130 pg/mL RA Range: (12-410) RA Percentile: 63%VEGF-A Result 210 pg/mL RA Range: (75-790) RA Percentile: 42%Leptin Result 92 ng/mL RA Range: (1.5-120) RA Percentile: 93%Resistin Result 4.3 ng/mL RA Range: (3.5-21) RA Percentile: 7%MMP-1 Result 0.86 ng/mL RA Range: (1.3-23) RA Percentile: <1%MMP3 Result 44 ng/mL RA Range: (7.9-160) RA Percentile: 78%YKL-40 Result 42 ng/mL RA Range: (22-540) RA Percentile: 20%[employer] Comment: These reported analyte values and reference ranges areintended for use in the generation of the Vectra score only. These results should not be used interc hangeably with results generated by different methodologies.Footnote/History RA Range: These 95% reference ranges were established from 325,781 patient samples [facility] at [facility]. RA Percentile: Subject's biomarker level relative to levels in RA patient specimens from which the RA ranges were determined Complete Vectra Score History:Clinical Validation Please note:The individual biomarker results, which are expressed to two significant figures, are required inputs into the algorithm used to calculate the Vectra Score. Clinical interpretation of individual biomarker levels which have different weights in the Vectra algorithm, has not been established.TEST PERF ORMED AT: [employer] [address] [place] [id number] Dir: Daniel Altamirano, MDREFERRED TO LABCORPRadiologyon [id number] Hand - bilateral 2 ViewsPlease click on the link to view the study imagesNormal UV-Wdrbbebjjcrb-ZfyrwneChi St[facility] 2500 DO Work Phone: XR Hand - bilateral 2 ViewsNormal-[facility] Work Phone: Rheumatoid Factor, Serum or Plasmaon 07-16-2021 Rheumatoid factor Nephelometry Qn (S)19 {IU/mL}above high threshold0 - 15MP- [facility] Work Phone: Sedimentation Rate, Erythrocyteon 95-81-1228CPR (Bld) [Velocity]5 mm/h0 - 30MP-[facility] Work Phone: T-SPOT. TBon 72-62-0963S-SPOT. TBPASSEDMP-[facility] Work Phone: Comment on above:Testing performed at : [facility], [email or web address] [facility], [address] [place] [address], , City Secretary: Praveen Veras MD, PhD, CLIA: [id number], PHONE: [phone] For additional information, please refer to http://education.Wistia.Evolv/faq/GDR172 (This link is being provided for informational/ educational purposes only.)T-SPOT. TB0 [address] [place] [address] Work Phone: [phone]-VQZK. TBNegativeSee [facility] Work Phone: Comment on above:Reference Range: Negative A negative test result does not exclude the possibility of exposure to orinfection with Mycobacterium tuberculosis (M. tuberculosis). Patients with recent exposure to TB infected individuals exhibiting a negative T-SPOT.TB result should be considered for retesting within 6 weeks or if other relevant clinical symptoms indicate. Results from T-SPOT.TB testing must be usedin conjunction with each individual's epidemiological history, current medical status, and results of other diagnostic evaluations. The T-SPOT.TB test is qualitative and results are reported as positive, borderline, or negative, given that the test controls perform as expected. In line with the Centers for Disease Control and Prevention's 2010 recommendation to report quantitative measurements alongside the qualitative result, the laboratory provides spot counts for informational purposes only.The T-SPOT.TB test should not be interpreted as a quantitative test.Uric Acid, Serumon 89-92-4625Qlszy [Mass/Vol]6.0 mg/dL2.3 - 6.7[facility] Work Phone: Comment on above:Venipuncture immediately after or during the administration of Metamizole may lead to falsely low results. Testing should be performed immediately prior to Metamizole dosing.Radiologyon [id number] Knee 3 ViewsNoCritical access hospital-[facility]alsL[facility] Work Phone: XR Pelvis and Hip - left 2 ViewsNoOdessa Regional [facility] Center Work Phone: Radiologyon [id number] Elbow 3 ViewsNoOdessa Regional Medical Center Work Phone: Otheron [id number] Elbow 3 viewsInterpreted by: GLENNA KIM TTTSPL56/13/21 17:56MRN: [id number] Name: CATY HILLS STUDY:ELBOW COMPLETE MIN 3 VIEWS; Left; 07/15/2020 3:12 pm INDICATION:fx. ORDERING CLINICIAN:GLENNA SANTO FINDINGS:Left elbow x-rays three views AP, lateral and oblique view: Stableappearing nondisplaced radial head fracture, with no significantchange from previous imaging. Electronically signed by: GLENNA SANTO 07/15/20 17:56Normal-[facility] Work Phone: ALT - Alanine Aminotransferase, Serumon [id number] With P-5'-P [Catalytic activity/Vol]21 U/L7 - 45-[facility] Work Phone: Comment on above:Patients treated with Sulfasalazine may generate falsely decreased results for ALT.Complete Blood Count + Differentialon 34-47-4579Bhvoxzujo (Bld) [#/Vol]0.03 {x10E9/L}See [facility] Work Phone: Comment on above:Reference Range: 0.00 - 0.10 Basophils/100 WBC (Bld)0.6 %0.0 - 2.0-[facility] Work Phone: [phone] (Bld) [#/Vol]0.04 {x10E9/L}See [facility] Work Phone: Comment on above:Reference Range: 0.00 - 0.70 Eosinophils/100 WBC (Bld)0.8 %0.0 - 6.0-[facility] Work Phone: Erythrocyte distribution width (RBC) [Ratio]12.9 %See [facility] Work Phone: Comment on above:Reference Range: 11.5 - 14.5 Hematocrit (Bld) [Volume fraction]39.1 %See [facility] Work Phone: [phone] on above:Reference Range: 36.0 - 46.0 Hemoglobin (Bld) [Mass/Vol]12.7 g/dLSee [facility] [place] Work Phone: [phone] on above:Reference Range: 12.0 - 16.0 Lymphocytes (Bld) [#/Vol]3.30 {x10E9/L}See [facility] [place] Work Phone: [phone] on above:Reference Range: 1.20 - 4.80 Lymphocytes/100 WBC (Bld)67.3 %See [facility] [place] Work Phone: [phone] on above:Reference Range: 13.0 - 44.0MCHC (RBC) [Mass/Vol]32.5 g/dLSee [facility] [place] Work Phone: [phone] on above:Reference Range: 32.0 - 36.0MCV (RBC) [Entitic vol]97 fL80 - 100[facility] [place] Work Phone: [phone] (Bld) [#/Vol]0.44 {x10E9/L}See [facility] [place] Work Phone: [phone] on above:Reference Range: 0.10 - 1.00 Monocytes/100 WBC (Bld)9.0 %2.0 - 10.0[facility] [place] Work Phone: [phone] (Bld) [#/Vol]1.09 {x10E9/L}below low thresholdSee [facility] Work Phone: [phone] on above:Reference Range: 1.20 - 7.70 Neutrophils/100 WBC (Bld)22.3 %See [facility] Work Phone: [phone] on above:Reference Range: 40.0 - 80.0Platelets (Bld) [#/Vol]206 {x10E9/L}150 - 450MP-[facility] [employer] Work Phone: RBC (Bld) [#/Vol]4.05 {x10E12/L}See Below-[facility] [place] Work Phone: [phone] on above:Reference Range: 4.00 - 5.20WBC (Bld) [#/Vol]4.9 {x10E9/L}4.4 - 11.3MP-[facility] [employer] Work Phone: Complete Blood Count + Differential0.0 %0.0 - 0.9MP- [facility] [employer] Work Phone: Comment on above:Immature Granulocyte Count (IG) includes promyelocytes, myelocytes and metamyelocytes but does not include bands. Percent differential counts (%) should be interpreted in the context of the absolute cell counts (cells/L).Creatinine, Serumon 57-60-2138Wybjmejnni [Mass/Vol]mg/dL>60MP-[facility] [employer] Work Phone: [phone] on above:CALCULATIONS OF ESTIMATED GFR ARE PERFORMED USING THE MDRD STUDY EQUATION FOR THE IDMS-TRACEABLE CREATININE METHODS. CLIN CHEM 2007;53:766-72Creatinine [Mass/Vol]0.89 mg/dLSee Below- [facility] [employer] Work Phone: [phone] on above:Reference Range: 0.50 - 1.05Otheron 73-29-3713SFS With P-5'-P [Catalytic activity/Vol]22 U/L9 - 39MP-[facility] [employer] Work Phone: [phone] Rate, Erythrocyteon 04-87-4093ULB (Bld) [Velocity]8 mm/h0 - 20MP-[facility] [employer] Work Phone: [phone] Summaryon 18-69-4151Chspsi SummaryCODING DATE: 04/07/2020 [facility] STATUS: Home PAYOR: Workers Compensation ADMIT DX: REASON FOR VISIT DX: M25.562 Pain in left knee M79.651 Pain in right thigh M79.652 Pain in left thigh FINAL DX: PRINCIPAL: S80.02XA Contusion of left knee, initial encounter SECONDARY: S70.02XA Contusion of left hip, initial encounter S70.11XA Contusion of right thigh, initial encounter M06.9 Rheumatoid arthritis, unspecified Z96.652 Presence of left artificial knee joint Y99.0 Civilian activity done for income or pay PYMT PROC APC STAT DESCRIPTION DOCTOR NAME DATE NOTE: The code number assigned matches the documented diagnosis and / or procedure in the patient's chart. However, the narrative phrase printed from the coding software may appear abbreviated, or result in slightly different terminology. Coded By: Julio Cesar Patel' Date Saved: 04/07/2020 09:56 [facility] HospitalCoding SummaryCODING DATE: 04/07/2020 [facility] STATUS: Home PAYOR: Workers Compensation APC DESCRIPTION 5522 Level 2 Imaging without Contrast ADMIT DX: REASON FOR VISIT DX: M25.562 Pain in left knee M79.651 Pain in right thigh M79.652 Pain in left thigh FINAL DX: PRINCIPAL: S80.02XA Contusion of left knee, initial encounter SECONDARY: S70.02XA Contusion of left hip, initial encounter S70.11XA Contusion of right thigh, initial encounter M06.9 Rheumatoid arthritis, unspecified Z96.652 Presence of left artificial knee joint Y99.0 Civilian activity done for income or pay PYMT PROC APC STAT DESCRIPTION DOCTOR NAME DATE NOTE: The code number assigned matches the documented diagnosis and / or procedure in the patient's chart. However, the narrative phrase printed from the coding software may appear abbreviated, or result in slightly different terminology. Coded By: Carol Patel Date Saved: 04/07/2020 09:52 [facility] HospitalDischarge Instructionson [id number] Instructions [id number] [facility] Clinical Summaryon [id number] Clinical SummaryW[facility]umedicine [facility] - Emergency Department [address] [place] [address] ED Clinical Summary PERSON INFORMATION Name: CATY HILLS Age: 59 Years Sex: FEMALE : 1960 MRN: Acct#: Visit Reason: Knee pain-swelling; FALL- LEFT KNEE PAIN- BILAT HIP PAIN Arrival: 04/04/2020 09:29:15 Discharge: 04/04/2020 10:50:00 LOS: 000 01:21 Check In: 04/04/2020 09:29:15 Checkout:04/04/2020 10:50:00 Address: [address] [place] [address] PCP: ANIBAL JUAN PROVIDER INFORMATION Provider Role Assigned Unassigned Kerri Jenkins RN ED Nurse 04/04/2020 09:36:59 Chuck Luevano MD ED Provider 04/04/2020 09:48:20 VITALS INFORMATION Vital Sign Triage Latest Temperature Tympanic Temperature Temporal Artery Pulse Rate 76 bpm 76 bpm O2 Sat 98 % 98 % Respiratory Rate 16 br/min 16 br/min Blood Pressure /77 mmHg /77 mmHg MEDICAL INFORMATION Medications Given: Allergy Information: No Known Medication Allergies PHYSICIAN DOCUMENTATION DISCHARGE INFORMATION: Discharge Disposition: Home Discharge Location: PATIENT EDUCATION INFORMATION Instructions: Contusion, Ixjr-ka-Nnrd Follow-Up: With: Address: When: ANIBAL JUAN [address] [id number] [facility] () Within 10 to 12 days, only if needed Comments: Reviewed discharge care instruction. Continue with therapy as outlined by Dr. Luevano. Follow-up with occupational health [facility] if you have any persistent symptoms of concern DIAGNOSIS: Contusion of anterior thigh; Contusion of hip, left; Contusion of knee, left; Fall from ground level Patient Understands: Yes - Patient/family/caregiver verbalizes understanding of instructions given Comment:[facility] Note - Physicianon [id number] Note - PhysicianPatient: CATY HILLS Age: 59 years Sex: FEMALE : 1960 Associated Diagnoses: Fall from ground level; Contusion of knee, left; Contusion of hip, left; Contusion of anterior thigh Author: Chuck Luevano MD Basic Information Time seen: Date & time 04/04/2020 09:55:00. History source: Patient. Arrival mode: Private vehicle, walking. History limitation: None. Additional information: Chief Complaint from Nursing Triage Note : Chief Complaint 04/04/2020 9:30 EST Chief Complaint Pt states that she had her L knee replaced 5 months ago. She states that she fell on at work and landed directly on her L knee and hit both hips . History of Present Illness The patient presents with knee injury. The onset was 04/01/2021. 59-year-old female, prior history of rheumatoid arthritis and left knee arthroplasty presented to ER for evaluation of injury as result of falling at work. Patient stated that she had knee replacement surgery several months ago. Stated that after, has been in good recovery. Satisfactory function. Stated that she was at work on the , and while at work, pushing on mechanism, with mechanism malfunctioning, causing her to fall forward. She stated that after the fall, she noted that she had painon both her thighs, her left knee. She was able to ambulate afterwards. 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 Review of Systems Constitutional symptoms: Negative except as documented in HPI. Skin symptoms: No abrasions, Musculoskeletal symptoms: Joint pain. Neurologic symptoms: No numbness, no tingling. Health Status Allergies: Allergic Reactions (Selected) No Known Medication Allergies. Past Medical/ Family/ Social History Medical history: No active or resolved past medical history items have been selected or recorded., Reviewed as documented in chart. Surgical history: No active procedure history items have been selected or recorded., Reviewed as documented in chart. Family history: No family history items have been selected or recorded., Reviewed as documented in chart. Social history: Social & Psychosocial Habits Alcohol 04/04/2020 Alcohol Use: Never Substance Abuse 04/04/2020 Substance use: Never Tobacco 04/04/2020 Smoking tobacco use: Never (less than 100 in l Electronic Cigarette/Vaping 04/04/2020 Electronic Cigarette Use: Never , Reviewed as documented in chart. Problem list: No qualifying data available . Physical Examination Vital Signs Vital Signs 04/04/2020 9:30 EST Temperature Oral 36.4 DegC Peripheral Pulse Rate 76 bpm Respiratory Rate 16 br/min Systolic Blood Pressure 139 mmHg Diastolic Blood Pressure 77 mmHg SpO2 98 % Oxygen Therapy Room air . Measurements 04/04/2020 9:42 EST Height/Length Dosing 173.000 cm Weight Dosing 99.790 kg 04/04/2020 9:30 EST Height/Length Estimated 173.000 cm Weight Estimated 99.790 kg . General: Alert, Age-appropriate, 59-year-old female, awake and alert; appears without distress at this time. Skin: Warm, dry, intact, normal for ethnicity. Head: Normocephalic, atraumatic. Eye: Extraocular movements are intact, normal conjunctiva. Respiratory: Respirations are non-labored. Musculoskeletal: Bilateral upper extremity, grossly normal. Range of motion normal. On the right anterior lower thigh, patient had some skin bruising noted. Left lateral trochanter region, some bruising around the area. Hip range of motion bilaterally grossly normal. The knee, left and right, normal flexion extension, normal weightbearing, normal gait. There is no obvious effusion. There is osteoarthritic age-related changes on both knees, but no acute process. Neurological: Alert and oriented to person, place, time, and situation, No focal neurological deficit observed. Psychiatric: Cooperative. Medical Decision Making Orders Launch Orders Radiology: XR Knee Complete Left (Order): 04/04/2020 10:08 EST Stat, fall, injury/ hx replacement, Allow Modification Per Radiologist, Transport Mode: Wheelchair. Reexamination/ Reevaluation I have discussed with the patient regarding finding exam. Likely she has simple contusions. No anticipated sequelae as result of this injury. As a concern as well as her employer is concerned, I did order an x-ray of the knee. Results, unremarkable. Treatment plan as discussed with patient, no change at this time. Continue with supportive care, compress as needed. Psaf-kdo-fcbtpxs analgesic as needed for pain. Follow-up as needed. Patient indicated understanding regarding treatment plans and follow-up Impression and Plan Diagnosis Fall from ground level ([id number]-XR W18.30XA, Discharge, Medical) Contusion of knee, left (ZZN43-JQ S80.02XA, Discharge, Medical) Contusion of hip, left (RQY02-CE S70.02XA, Discharge, Medical) Contusion of anterior thigh (ADD18-FZ S70.10XA, Discharge, Medical) Plan Condition: Stable. Disposition: Discharged: Time 04/04/2020 10:07:00, to home. Patient was given the following educational materials: Contusion, Nrdu-eu-Pmpn. [Electronically Signed on: 04/04/2020 12:15 EST] Chuck Luevano MD [Verified on: 04/04/2020 12:15 EST] Chuck Luevano MDNoFayette County Memorial Hospital Note-Nursingon [id number] Note-Nursing Pt was not discharged by this RN and was discharged without patient signing workers comp paperwork or getting drug screen for workers comp. This RN called patient to see if she could come back and sign that paperwork and get her drug screen. Pt stated that she would come after work at 2pm if it is not icy and if the roads are too bad that she would come tomorrow.[facility] Qn Patient arrived to the ER via private vehicle alert and oriented x4. Pt c.o L knee pain. Pt states that she had a total left knee replacement competed [address] Lamb in [place], [place]. Pt states that on 04/01 at work she fell and landed directly on her L knee and also hit both ofher hips. She states that her L knee is still hurting and she rates her pain a 3/10. Pt opted to walk back and denied use of wheelchair. Pt ambulated to room without difficulty.[facility] Patient Education Noteon [id number] Patient Education NoteEducation Materials Orthopedics Contusion A contusion is a deep bruise. This is a result of an injury that causes bleeding under the skin. Symptoms of bruising include pain, swelling, and discolored skin. The skin may turn blue, purple, or yellow. Follow these instructions at home: Managing pain, stiffness, and swelling You may use RICE. This stands for: ? Resting. ? Icing. ? Compression, or putting pressure. ? Elevating, or raising the injured area. To follow this method, do these actions: ? Rest the injured area. ? If told, put ice on the injured area. ? Put ice in a plastic bag. ? Place a towel between your skin and the bag. ? Leave the ice on for 20 minutes, 2?3 times per day. ? If told, put light pressure (compression) on the injured area using an elastic bandage. Make surethe bandage is not too tight. If the area tingles or becomes numb, remove it and put it back on as told by your doctor. ? If possible, raise (elevate) the injured area above the level of your heart while you are sittingor lying down. General instructions ? Take xmgi-kft-hjegzjc and prescription medicines only as told by your doctor. ? Keep all follow-up visits as told by your doctor. This is important. Contact a doctor if: ? Your symptoms do not get better after several days of treatment. ? Your symptoms get worse. ? You have trouble moving the injured area. Get help right away if: ? You have very bad pain. ? You have a loss of feeling (numbness) in a hand or foot. ? Your hand or foot turns pale or cold. Summary ? A contusion is a deep bruise. This is a result of an injury that causes bleeding under the skin. ? Symptoms of bruising include pain, swelling, and discolored skin. The skin may turn blue, purple,or yellow. ? This condition is treated with rest, ice, compression, and elevation. This is also called RICE. You may be given pqbp-mlv-rfajxtv medicines for pain. ? Contact a doctor if you do not feel better, or you feel worse. Get help right away if you have very bad pain, have lost feeling in a hand or foot, or the area turns pale or cold. This information is not intended to replace advice given to you by your health care provider. Make sure you discuss any questions you have with your health care provider. Document Released: 09/06/2008 Document Revised: 11/10/2018 Document Reviewed: 11/10/2018 ElseDocSend Patient Education ? 2019 [employer].[facility] Patient Summaryon [id number] Patient [facility] - Emergency Department [address] [place] [address] PATIENT DISCHARGE INSTRUCTIONS Patient Information Name: CATY HILLS Age: 59 Years Date of : 1960 Reason For Visit: Knee pain-swelling; FALL- LEFT KNEE PAIN- BILAT HIP PAIN Arrival Time: 04/04/2020 09:29:15 Primary Care Physician: ANIBAL JUAN Attending Physician: Chuck Luevano MD Comment: Visit Diagnosis: Diagnoses This Visit Contusion of anterior thigh (S70.10XA) Contusion of hip, left (S70.02XA) Contusion of knee, left (S80.02XA) Fall from ground level (W18.30XA) Knee pain-swelling ([id number]) Prescription Information: If you have been given a prescription for narcotics, seek immediate medical attention if you have any difficulty breathing or any sudden status changes such as confusion andsleepiness. If you or anyone you know is experiencing suicidal thoughts, mental health, alcohol and/or drug addiction problems; contact the [facility] 25/10 Crisis Hotline -text 4HHIF nb 899896. If you received any narcotics, sedation, or any other medication that causes drowsiness for the next 24 hours, unless otherwise directed: ? Do not drive a car. ? Do not operate machinery such as power tools, lawn mowers, drills, sewing machines, or stoves ? Avoid alcoholic beverages and drugs for allergies, nerves, or sleep ? Do not make important personal or business decisions or sign any legal documents With: Address: When: ANIBAL JUAN [address] [place], [place] [id number] Business (1) Within 10 to 12 days, only if needed Comments: Reviewed discharge care instruction. Continue with therapy as outlined by Dr. Luevano. Follow-up with occupational health as [facility] if you have any persistent symptoms of concern Medication Information: The exam and treatment you received today in the [facility] Emergency Department were for an urgent problem and are not intended as complete care. It is important for you to follow up with a doctor, nurse practitioner, or physician?s leasing assistant for ongoing care. If your symptoms become worse or you donot improve as expected and you are unable to reach your usual health care provider, you should return to the Emergency Department, we are available 24 hours a day. For those patients who have received Radiology results, the interpretation of your X-ray as given to you by our Emergency Department physician is only a preliminary report. The Radiologist will review your films and if there is a change in the diagnosis you will be notified by phone. Please make sure you have provided a working phone number so we can reach you if necessary. In the event that you had a lab culture while you were a patient in the Emergency Department, you will be notified by phone if there is a need to change your antibiotic. Please make sure you have provided a working phone number so we can reach you if necessary. [facility] Emergency Department has provided you with a complete list of medications post discharge. Please inform your scrap wheeler/provider of your visit and for further instruction on these medications. Any specific questions regarding your chronic medications and dosages should be discussed with your primary care physician(s) and/or pharmacist. Visit Information Allergies: Substance Reaction Symptoms Type Comments No Known Medication Allergies Drug Vital Signs: Vitals and Measurements this Visit (last charted value for your 04/04/2020 visit) Vital Signs This Visit Temperature Oral: 36.4 DegC Peripheral Pulse Rate: 76 bpm Respiratory Rate: 16 br/min Systolic Blood Pressure: 139 mmHg Diastolic Blood Pressure: 77 mmHg SpO2: 98 % Oxygen Therapy: Room air Measurements This Visit Height/Length Dosin.000 cm Height/Length Estimated: 173.000 cm Weight Dosin.790 kg Weight Estimated: 99.790 kg Problems List: Problem Onset Comments No Problems found Patient Education Contusion A contusion is a deep bruise. This is a result of an injury that causes bleeding under the skin. Symptoms of bruising include pain, swelling, and discolored skin. The skin may turn blue, purple, or yellow. Follow these instructions at home: Managing pain, stiffness, and swelling You may use RICE. This stands for: ? Resting. ? Icing. ? Compression, or putting pressure. ? Elevating, or raising the injured area. To follow this method, do these actions: ? Rest the injured area. ? If told, put ice on the injured area. ? Put ice in a plastic bag. ? Place a towel between your skin and the bag. ? Leave the ice on for 20 minutes, 2?3 times per day. ? If told, put light pressure (compression) on the injured area using an elastic bandage. Make surethe bandage is not too tight. If the area tingles or becomes numb, remove it and put it back on as told by your doctor. ? If possible, raise (elevate) the injured area above the level of your heart while you are sittingor lying down. General instructions ? Take hjsa-dgn-mchyxfr and prescription medicines only as told by your doctor. ? Keep all follow-up visits as told by your doctor. This is important. Contact a doctor if: ? Your symptoms do not get better after several days of treatment. ? Your symptoms get worse. ? You have trouble moving the injured area. Get help right away if: ? You have very bad pain. ? You have a loss of feeling (numbness) in a hand or foot. ? Your hand or foot turns pale or cold. Summary ? A contusion is a deep bruise. This is a result of an injury that causes bleeding under the skin. ? Symptoms of bruising include pain, swelling, and discolored skin. The skin may turn blue, purple,or yellow. ? This condition is treated with rest, ice, compression, and elevation. This is also called RICE. You may be given sdkt-rif-emodywi medicines for pain. ? Contact a doctor if you do not feel better, or you feel worse. Get help right away if you have very bad pain, have lost feeling in a hand or foot, or the area turns pale or cold. This information is not intended to replace advice given to you by your health care provider. Make sure you discuss any questions you have with your health care provider. Document Released: 09/06/2008 Document Revised: 11/10/2018 Document Reviewed: 11/10/2018 [employer] Patient Education ? 2019 [employer] Viruses or Bacteria What?s got you sick? Antibiotics only treat bacterial infections. Viral illnesses cannot be treated with antibiotics. When an antibiotic is not prescribed, ask your healthcare professional for tips on how to relieve symptoms and feel better. Usual Cause Illness Viruses Bacteria Antibiotic Needed Cold/Runny Nose NO Bronchitis/Chest Cold (in otherwise healthy children and adults) NO Whooping Cough Yes Flu NO Strep Throat Yes Sore Throat (except strep) NO Fluid in the middle ear (otitis media with effusion) NO Urinary Tract Infection Yes Antibiotics Aren?t Always the Answer www.cdc.gov/getsmart GET SMART Know When Antibiotics Work U.S. Department of Health and Human Services Centers for Disease Control and Prevention December 2013[facility] XR Knee Complete Lefton [id number] Knee Complete LeftEXAM: XR Knee Complete Left HISTORY: fall, injury/ hx replacement COMPARISON: None. TECHNIQUE: 4 views left knee. FINDINGS: There are postsurgical findings of left total knee arthroplasty with patellar resurfacing in near-anatomic alignment. There is no periprosthetic lucency or periprosthetic fracture. There is no left knee effusion. There is left infrapatellar soft tissue swelling. IMPRESSION: 1. No acute displaced fracture or dislocation of the left knee. 2. Status post left total knee arthroplasty with patellar resurfacing in near-anatomic alignment. 3. Left infrapatellar soft tissue swelling. Final Dictated by: Tj Mccabe Dictated DT/TM: 04/04/20 11:26 Signed (Electronic Signature): Tj Mccabe 04/04/20 11:41 a Technologist: [facility], IncXR Foot - bilateral AP and Lateral and obliqueon [id number]: NO ACUTE BONY ABNORMALITY OTHER FINDINGS DESCRIBED 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: [facility] CENTERJos Transcribe Date/Time: Jan 30 2020 5:54P Dictated by : MORGAN HENNING MD This examination was interpreted and the report reviewed and electronically signed by: MORGAN HENNING MD on Jan 30 2020 5:57PM [facility] DIVISION OF RADIOLOGY* * *Final Report* * * DATE OF EXAM: Jan 30 2020 2:39PM LZX 5555 - XR FOOT 3V AP/LAT/OBL ZENA / PROCEDURE REASON: multiple diagnoses * * * * Physician Interpretation * * * * HISTORY: Bilateral foot pain Bilateral foot pain TECHNIQUE: 3 views of each foot COMPARISON: Left foot radiograph 08/06/2019 RESULT: Right foot: There is no acute fracture. Bipartite medial hallux sesamoid. Small bunion. Joint spaces are preserved. Small spur dorsal talar neck. There are small retrocalcaneal and plantar calcaneal spurs. Left foot: There is no acute fracture. The previously seen healing fifth metatarsal fracture has completely healed. Small bunion. Joint spaces are preserved. Small retrocalcaneal and plantar calcaneal spurs. DIVISION OF RADIOLOGYProvider, [facility] [place] - 01/30/2020 * * *Final Report* * * DATE OF EXAM: Jan 30 2020 2:39PM LZX 5555 - XR FOOT 3V AP/LAT/OBL ZENA / PROCEDURE REASON: multiple diagnoses * * * * Physician Interpretation * * * * HISTORY: Bilateral foot pain Bilateral foot pain TECHNIQUE: 3 views of each foot COMPARISON: Left foot radiograph 08/06/2019 RESULT: Right foot: There is no acute fracture. Bipartite medial hallux sesamoid. Small bunion. Joint spaces are preserved. Small spur dorsal talar neck. There are small retrocalcaneal and plantar calcaneal spurs. Left foot: There is no acute fracture. The previously seen healing fifth metatarsal fracture has completely healed. Small bunion. Joint spaces are preserved. Small retrocalcaneal and plantar calcaneal spurs. IMPRESSION IMPRESSION: NO ACUTE BONY ABNORMALITY OTHER FINDINGS DESCRIBED 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: [facility] Transcribe Date/Time: Jan 30 2020 5:54P Dictated by : MORGAN HENNING MD This examination was interpreted and the report reviewed and electronically signed by: MORGAN HENNING MD on Jan 30 2020 5:57PM [facility]woodsRadiology Study observation (narrative)[facility] HospitalXR Foot - bilateral AP and Lateral and obliqueOrdered By: [facility] Provider on 01-30-2020 [facility] HospitalBasi Metabolic Panel w/ Reflex to MGon [id number] gap [Moles/Vol]11 mmol/LMercy Health- [place], KYCalcium [Mass/Vol]8.8 mg/dL8.5 - 9.9 mg/dLThe [facility] Hospital [facility]- [place], KYChloride [Moles/Vol]104 mmol/LMercy Health- [place], KYCO2 [Moles/Vol]24 mmol/LMercy Health- [place], KYCreatinine [Mass/Vol]0.83 mg/dL0.5 - 0.9 mg/dLAstoria, KYGFR >60.0>60[place], [place] Comment on above:>60 mL/min/1.73m2 EGFR, calc. for ages 18 and older using the MDRD formula (not corrected for weight), is valid for stable renal function. GFR Non->60.0>60[place], KYComment on above:>60 mL/min/1.73m2 EGFR, calc. for ages 18 and older using the MDRD formula (not corrected for weight), is valid for stable renal function. Glucose [Mass/Vol]96 mg/dL70 - 99 mg/dLAstoria, KYPotassium [Moles/Vol] 4.4 mmol/LMSpencer, KYSodium [Moles/Vol]139 mmol/LMSpencer, [place] Urea nitrogen [Mass/Vol]19 mg/dL6 - 20 mg/dLAstoria, KYCBCon 11-16-2019 Erythrocyte distribution width (RBC) [Ratio]12.7 %11.5 - 14.5 %[place], KYHematocrit (Bld) [Volume fraction]34.3 %Low37 - 47 %[place], [place] Hemoglobin (Bld) [Mass/Vol]11.6 g/dLLow12 - 16 g/dLAstoria, [place] Interpretation and review of laboratory resultsAbnormalParkview Health Bryan HospitalH (RBC) [Entitic mass]30.8 pg27 - 31.3 pgAstoria, KYMCHC (RBC) [Mass/Vol] 33.7 %33 - 37 %[facility] Bryan HospitalV (RBC) [Entitic vol]91.4 fL82 - 100 fL [place], KYPlatelets (Bld) [#/Vol]179 10*3/uL130 - 400 K/[place], KYRBC (Bld) [#/Vol]3.76 10*6/uLLowAstoria, KYWBC (Bld) [#/Vol]8.8 10*3/uL4.8 - 10.8 K/uLMercy Health- [place], KYXR KNEE LEFT (1-2 VIEWS)on 26-67-3096Nxj, Rgpo Incoming Radiant Results From [employer] - 11/15/2019 12:23 PM EDT EXAMINATION: XR KNEE LEFT (1-2 VIEWS) CLINICAL HISTORY: LEFT KNEE ARTHROPLASTY. COMPARISONS: None available. FINDINGS: No fracture, dislocation, bone lesion. Post left knee replacement. No abnormal lucency bone prosthetic interface. IMPRESSION: STABLE POSTOPERATIVE LEFT KNEE.[facility]- [place], KYEXAMINATION: XR KNEE LEFT (1- 2 VIEWS) CLINICAL HISTORY: LEFT KNEE ARTHROPLASTY. COMPARISONS: None available. FINDINGS: No fracture, dislocation, bone lesion. Post left knee replacement. No abnormal lucency bone prosthetic interface.[facility]- [place], KYSTABLE POSTOPERATIVE LEFT KNEE.[facility]- [place], KYEKG 12 Leadon [id number] Rate 68BPMMercy Health- [place], KYP Yijp46okjkcniAwrmc Health- [place], KYP-R Tnftzwhy781 ms [facility]- [place], KYQ-T Utmqjjax943 msMercy Health- [place], KYQRS Uojxiabr60 msMdetwiler memorial hospitaly Health- [place], KYQTc Calculation (Bazett)440 msMercy Health- [place], KYR Potter-17 degreesMer Health- [place], KYT Mqqu42eiwcqalLkpjy Health- [place], KYVentricular Rate68 BPMMer Health- [place], KYEdi, Chpo Incoming Results From [facility] - 11/12/2019 2:11 PM EDT Normal sinus rhythm Cannot rule out Anterior infarct , age undetermined Abnormal ECG When compared with ECG of 22-FEB-2018 15:56, No significant change was found Confirmed by Handy Maharaj ([id number]) on 11/12/2019 2:11:38 PMWvumedicine [facility] Health- [place], [place] Normal sinus rhythm Cannot rule out Anterior infarct , age undetermined Abnormal ECG When compared with ECG of 22-FEB-2018 15:56, No significant change was found Confirmed by Handy Maharaj ([id number]) on 11/12/2019 2:11:38 PM [facility]- [place], KYCovid-19 Ambulatoryon [id number]-CoV-2Not DetectedNot DetectedMer Health- [place], KYComment on above:This test was developed and its performance characteristics determined by [employer]. This test has not been FDA cleared or approved. This test has been authorized by FDA under an Emergency Use Authorization (EUA). This test is only authorized for the duration of time the declaration that circumstances exist justifying the authorization of the emergency use of in vitro diagnostic tests for detection of SARS-CoV-2 virus and/or diagnosis of COVID-19 infection under section 564(b)(1) of the Act, 21 U.S.C. 360bbb-3(b)(1), unless the authorization is terminated or revoked sooner. When diagnostic testing is negative, the possibility of a false negative result should be considered in the context of a patient's recent exposures and the presence of clinical signs and symptoms consistent with COVID-19. An individual without symptoms of COVID-19 and who is not shedding SARS-CoV-2 virus would expect to have a negative (not detected) result in this assay. Performed at: [place] [address] [facility] [facility], [place] [id number] Basin Finish Operator Tig Welder: Dennis Mcginnis MD, Phone: [phone] SourceOP [facility], KYBasi Metabolic Panelon 20-01-4111Xjadh gap [Moles/Vol]13 mmol/LMercy Health- [place], KYCalcium [Mass/Vol]9.4 mg/dL8.5 - 9.9 mg/dLParkview Health [place], KYChloride [Moles/Vol]103 mmol/LMdetwiler memorial hospitaly Health- [place], KYCO2 [Moles/Vol]22 mmol/LMercy Health- [place], KYCreatinine [Mass/Vol]0.74 mg/dL0.5 - 0.9 mg/dLSelect [facility] [place], KYGFR >60.0>60[facility]- [place], [place] Comment on above:>60 mL/min/1.73m2 EGFR, calc. for ages 18 and older using the MDRD formula (not corrected for weight), is valid for stable renal function. GFR Non->60.0>60[facility]- [place], KYComment on above:>60 mL/min/1.73m2 EGFR, calc. for ages 18 and older using the MDRD formula (not corrected for weight), is valid for stable renal function. Glucose [Mass/Vol]90 mg/dL70 - 99 mg/dLThe [facility]- [place], KYPotassium [Moles/Vol] 3.9 mmol/LMwadsworth-[facility] Health- [place], KYSodium [Moles/Vol]138 mmol/LMSt. John of God [facility]- [place], [place] Urea nitrogen [Mass/Vol]20 mg/dL6 - 20 mg/dLThe [facility]- [place], KYCBCon 11-09-2019 Erythrocyte distribution width (RBC) [Ratio]12.3 %11.5 - 14.5 %[facility], LAHematocrit (Bld) [Volume fraction]41.7 %37 - 47 %[facility], [place] Hemoglobin (Bld) [Mass/Vol]14.1 g/dL12 - 16 g/dLSelect Medical Specialty [facility] - [place], LAMCH (RBC) [Entitic mass]31.3 pg27 - 31.3 pgThe [facility] Hospital [facility]- [place], LAMCHC (RBC) [Mass/Vol]33.9 % 33 - 37 %[facility], LAMCV (RBC) [Entitic vol]92.5 fL82 - 100 fLSelect Medical Specialty Hospital - [place], KYPlatelets (Bld) [#/Vol]198 10*3/uL130 - 400 K/[facility]- [place], LARBC (Bld) [#/Vol]4.51 10*6/uLThe [facility] Hospital [facility]- [place], LAWBC (Bld) [#/Vol]4.8 10*3/uL 4.8 - 10.8 K/uLThe Surgical Hospital At Southwoods- [place], LAMicroscopic Urinalysison 62-04-2831Yhfaomom, UAMANYAbnormalNegative /HPFThe Surgical Hospital At Southwoods- [place], KYEpithelial Cells, UA0-2[facility]- [place], KYHyaline Casts, UA0-1MercBon [address] [address] [facility]- [place], LARBC (U) [#/Vol]0-2[facility]- [place], KYWBC, UA3-5[facility]- [place], KYOtheron 93-07-7899Dyfrzbzsdkgqdt and review of laboratory resultsAbnormalThe [facility]- [place], LAProtime-INRon 07-81-7615ANR Coag (PPP) [Relative time]0.9 {INR}[facility]- [place], [place] Interpretation and review of laboratory resultsAbnormalMercy Health- [place], KYPT Coag (PPP) [Time]11.9 sLowMercy Health- [place], KYTYPE AND SCREENon [id number]/Rh NegativeMercy Health- [place], KYUrinalysis Reflex to Cultureon 58-33-4368Nfdustqhs UrineNegativeNegativeMercy Health- [place], KYBlood, UrineTRACEAbnormalNegativeMercy Health- [place], KYClarity, UAClearClearMercy Health- [place], KYColor, UAYellow Straw/YellowMercy Health- [place], KYGlucose, UrNegativeNegative mg/dLMercy Health- [place], KYKetones Ql (U)NegativeNegative mg/dLMercy Health- [place], KYLeukocyte esterase Test strip Ql (U)TRACEAbnormalNegativeMercy Health- [place], KYNitrite, Urine PositiveAbnormalNegativeMercy Health- [place], KYpH, UA5.0[facility]- [place], KYProtein (U) [Mass/Vol]NegativeNegative mg/dLMercy Health- [place], KYSpecific [place], UA 1.019[facility]- [place], KYUrine Reflex to CultureNot IndicatedMercy Health- [place], KYUrobilinogen, Urine0.2<2.0 E.U./dLMercy Health- [place], KYAmylaseon 09-29-2019 Amylase [Catalytic activity/Vol]23 U/DOvd42-447Qroioqjxc [facility] Reference Lab Comment on above:Performed By: #### AMYL, BMP, LIPA #### [facility] Routine Lab [address] [place] [address] Sjqtb Metabolic Panlon 35-49-9607Kfmll gap [Moles/Vol]13 mmol/L Normal9-18[facility] Reference LabComment on above:Performed By: #### AMYL, BMP, LIPA #### [facility] Routine Lab [address] [place] [id number] [phone] [Mass/Vol]9.6 mg/dLNormal8.5-10.2CSt. Anthony's Hospital Reference LabComment on above:Performed By: #### AMYL, BMP, LIPA #### [facility] Routine Lab [address] [place], [place] [address] Wafxciiz [Moles/Vol]100 mmol/CFfcpoe76-030Pcjnxiyqq Clinic Reference LabComment on above:Performed By: #### AMYL, BMP, LIPA #### [facility] Routine Lab [address] [place], [place] [address] TJ2 [Moles/Vol]23 mmol/TMvazbg10-15Oyzgrijdl Clinic Reference Lab Comment on above:Performed By: #### AMYL, BMP, LIPA #### [facility] Routine Lab [address] [place], [place] [address] Jawzvuqwfv [Mass/Vol]0.84 mg/dLNormal0.58-0.96[facility] Reference LabComment on above:Performed By: #### AMYL, BMP, LIPA #### [facility] Routine Lab [address] [place], [place] [address] fONE- Amer.>60NormalCSt. Anthony's Hospital Reference LabComment on above:Performed By: #### AMYL, BMP, LIPA #### [facility] Routine Lab [address] [place], [place] [address] UTN/1.73 sq M predicted among non-blacks MDRD (S/P/Bld) [Vol rate/Area]mL/min/{1.73_m2}NormalJoint Township District Memorial Hospital Reference LabComment on above: Performed By: #### AMYL, BMP, LIPA #### [facility] Routine Lab [address] [place], [place] [address] Vvfdhvs [Mass/Vol]94 mg/eHIftiba34-62Dzigdaxac Clinic Reference Lab Comment on above:Performed By: #### AMYL, BMP, LIPA #### [facility] Routine Lab [address] [place], [place] [address] Tszdbfuvq [Moles/Vol]4.1 mmol/LNormal3.7-5.1ClevelBrecksville VA / [facility]ille [facility] Reference LabComment on above:Performed By: #### AMYL, BMP, LIPA #### [facility] Routine Lab [address] [place] [address] Tooswq [Moles/Vol]136 mmol/DLimiaq483-645Npmoqrpnq Clinic Reference LabComment on above:Performed By: #### AMYL, BMP, LIPA #### [facility] Routine Lab [address] [place] [address] Peob nitrogen [Mass/Vol]14 mg/dLNormal7-21[facility] Reference LabComment on above:Performed By: #### AMYL, BMP, LIPA #### [facility] Routine Lab [address] [address] Wpzyxado [id number] [Catalytic activity/Vol]23 U/TYkmbxm48-94 [facility] Reference LabComment on above:Performed By: #### AMYL, BMP, LIPA #### [facility] Routine Lab [address] [place] [address] Tarzpgq [id number] Knee 4 viewsPlease click on the link to view the study imagesCharlotte Hunger[facility] Work Phone: MRI LT KNEE W/O CONTRASTon [id number] LT KNEE W/O CONTRASTDATE OF EXAM: Feb 10 2018 11:29AM CLINICAL HISTORY/ Patient Name: CATY HILLS STUDY: MRI LT KNEE W/O CONTRAST; 02/10/2018 11:29 am INDICATION: internal derangement of knee. COMPARISON: None. ACCESSION NUMBER(S): [id number] ORDERING CLINICIAN: RODNEY LAMB TECHNIQUE: Multiplanar and multisequential MR images of the left knee are performed. FINDINGS: There is a small joint effusion and septated Dotson's cyst. There are moderate changes of tricompartmental osteoarthritis with diffuse irregular thinning of the articular cartilage and joint space narrowing. Patellar cartilage thinning is more pronounced at the medial facet. There is subcortical degenerative signal and cystic changes at the base of the tibial spines and within the lateral femoral condyle abutting the intracondylar notch. There is a focal lobular mass in the distal femoral metaphysis lateral of midline which measures 1.8 cm in diameter. The MR characteristics are suspicious for enchondroma. There is no sign of bone marrow edema or osseous fracture. There is thin complex linear signal in the posterior horn of the medial meniscus. Signal contacts the inferior and posterior corner of the meniscus on sagittal images. There is horizontal linear signal in the posterior horn of the lateral meniscus which approaches the inferior articular surface adjacent to the free edge though there is no clear violation of the surface. There is multilocular fluid collection posterior to the lateral meniscus measuring 2.4 cm in transverse diameter and 8 mm in maximum craniocaudal diameter. The AP diameter is 7 mm. The appearance is suspicious for para meniscal or synovial cyst formation. The anterior cruciate ligament is diffusely thickened and demonstrates intermediate increased intrasubstance signal. There is no full-thickness discontinuity. The posterior cruciate ligament, lateral collateral ligament complex, popliteus tendon, medial collateral ligament, extensor complex, and patellar retinacula are intact. There is focal edema within the superior and lateral margin of Hoffa's fat. CONCLUSION: IMPRESSION: Mild to moderate changes of tricompartmental osteoarthritis. Small linear tear of the posterior horn of the lateral meniscus to the posterior inferior corner. Equivocal tear of the posterior horn of the medial meniscus at the inferior articular surface. There is a multilocular parameniscal or synovial cyst along the posterior capsular surface of the meniscus. Mucoid degeneration of the anterior cruciate ligament. Small joint effusion and septated Dotson's cyst. Incidental 1.8 cm enchondroma in the distal femoral metaphysis.NormalEM[facility]/Inj: R thumb [facility] Vital Signs Date TimeVital SignValuePerforming [id number] 14:45-0400Body rohyuu863 Luca Berry MD Work Phone: [facility] 01-29-2025 14:45-0400Body wascwn953.64 Luca Berry MD Work Phone: [facility] 01-29-2025 14:45-0400Body mass index (BMI) [Ratio]36.77 kg/w6KmerrSamuel Berry MD Work Phone: [phone] 01-29-2025 14:45-0400Body iqynfh070 kgSamuel Berry MD Work Phone: 1(330)[address] [place] [address] 01-29-2025 14:45-0400Body yhovnt519.97 kgSamuel Berry MD Work Phone: 1(330)[address] [place] [address] 01-29-2025 14:45-0400BP SITE #1Amirza Brery MD Work Phone: 1(330)[address] [place] [address] 01-29-2025 14:45-0400BP SITE #2Amirza Berry MD Work Phone: 1(330)[address] [place] [address] 01-29-2025 14:45-0400Diastolic blood dafvylgm87 mm[Hg]Samuel Berry MD Work Phone: 1(330)[address] [place] [address] 01-29-2025 14:45-0400Diastolic blood wzvysvfc62 mm[Hg]Samuel Berry MD Work Phone: 1(330)[address] [place] [address] 01-29-2025 14:45-0400Heart rate52 /Rico Berry MD Work Phone: 1(330)[address] [place] [address] 01-29-2025 14:45-0400HGHTCHNVISSamuel Berry MD Work Phone: 1(330)[address] [place] [address] 01-29-2025 14:45-0400Systolic blood mm[Hg]Samuel Berry MD Work Phone: 1(330)[address] [place] [address] 01-29-2025 14:45-0400Systolic blood mcyafvof178 mm[Hg]Samuel Berry MD Work Phone: 1(330)304-[address] [place] [address] 01-29-2025 14:45-0400VITALSDJesse Berry MD Work Phone: 1(330)[address] [place] [address] 12-18-2024 09:04-0400Body lmzgmi278 cmAmirza Berry MD Work Phone: 1(330)[address] [place] [address] 12-18-2024 09:04-0400Body atfysb393.64 cmAmirza Berry MD Work Phone: 1(330)[address] [place] [address] 12-18-2024 09:04-0400Body mass index (BMI) [Ratio]36.29 kg/n4BuhkbSamuel Berry MD Work Phone: 1(330)[address] [place] [address] 12-18-2024 09:04-0400Body vlzoaw018 kgSamuel Berry MD Work Phone: 1(330)[address] [place] [address] 12-18-2024 09:04-0400Body ogticc139.61 kgSamuel Berry MD Work Phone: 1(330)[address] [place] [address] 12-18-2024 09:04-0400BP SITE #1Amirza Berry MD Work Phone: 1(330)[address] [place] [address] 12-18-2024 09:04-0400Diastolic blood bcdityyp00 mm[Hg]Samuel Berry MD Work Phone: 1(330)[address] [place] [address] 12-18-2024 09:04-0400Heart rate52 /minSamuel Berry MD Work Phone: 1(330)[address] [place] [address] 12-18-2024 09:04-0400HGHTCHNVISSamuel Berry MD Work Phone: 1(330)[address] [place] [address] 12-18-2024 09:04-0400Systolic blood smbhktau834 mm[Hg]Samuel Berry MD Work Phone: 1(330)[address] [place] [address] 12-18-2024 09:04-0400VITALSDONESamuel Berry MD Work Phone: 1(330)[address] [place] [address] 11-27-2024 11:45-0400Body mass index (BMI) [Ratio]35.8 kg/t3FrklfztcJosh Mcgowan MD Work Phone: [phone]08-26-2025 11:45-0400Body uygapy532.7 kgJosh Mcgowan MD Work Phone: [phone]08-26-2025 11:45-0400Diastolic blood uvmjnfrj84 mm[Hg]Josh Mcgowan MD Work Phone: [phone]08-26-2025 11:45-0400Heart rate57 /min Josh Mcgowan MD Work Phone: [phone]08-26-2025 11:45-0400Systolic blood mm[Hg]Josh Mcgowan MD Work Phone: [phone]07-18-2025 10:46-0400Body lnylfg171.18 cmMatthew Petznick DO Work Phone: 1(613)[address] [place], [place] [address]707-18-2025 10:46-0400 Body mass index (BMI) [Ratio]35.2 kg/d5Ibjozed Petznick DO Work Phone: 1(835)[address] [place], [place] 365[address]707-18-2025 10:46-0400 Body mfaeqt793.05 kgMatthew Petznick DO Work Phone: 1(213)[address] [place], [place] [address]707-18-2025 10:46-0400 Diastolic blood uebftqqr72 mm[Hg]Anibal Petznick DO Work Phone: 1(237)[address] [place], [place] [address]707-18-2025 10:46-0400 Heart rate58 /minMatthew Petznick DO Work Phone: 1(579)[address] [place], [place] [address]707-18-2025 10:46-0400 Systolic blood triqamhp705 mm[Hg]Anibal Petznick DO Work Phone: 1(687)[address] [place], [place] [address]706-23-2025 11:27-0400 Body mass index (BMI) [Ratio]35.23 kg/o1MmwrmKeyshawn Arellano MD Work Phone: [facility]06-23-2025 11:27-0400Body ynidkw952.06 kgKeyshawn Arellano MD Work Phone: [facility]06-23-2025 11:27-0400Diastolic blood agjzyxxk48 mm[Hg]Keyshawn Arellano MD Work Phone: [phone]06-23-2025 11:27-0400Heart rate67 /min Keyshawn Arellano MD Work Phone: [facility]06-23-2025 11:27-0400Systolic blood nfhirdfk530 mm[Hg]Keyshawn Arellano MD Work Phone: [facility]06-09-2025 11:30-0400Body wuhxlf331.2 cmRsantino No MD Work Phone: [facility]06-09-2025 11:30-0400Body mass index (BMI) [Ratio]36.01 kg/j1RxrsckChris No MD Work Phone: [facility]06-09-2025 11:30-0400Body unzoby846.3 kgChris No MD Work Phone: [facility]06-09-2025 11:30-0400Diastolic blood rpiydmkl03 mm[Hg]Chris No MD Work Phone: [facility]06-09-2025 11:30-0400Heart rate60 /min Chris No MD Work Phone: [facility]06-09-2025 11:30-0400Systolic blood upqexxxc113 mm[Hg]Chris No MD Work Phone: [facility]05-28-2025 09:05-0400Body hierhp625.2 cmMattrohan Petznick DO Work Phone: no[facility] CenterZjiibvpmmt54-99-1682 09:05-0400Body mass index (BMI) [Ratio]35.55 kg/q9Cuxmekh Petznick DO Work Phone: 1(419)[address]05-28-2025 09:05-0400Body temperature 98.1 [degF]Anibal Petznick DO Work Phone: 1(419)[address] [place], [place] [address]5-28-2025 09:05-0400Body ogevui477.97 kgMatthew Petznick DO Work Phone: 1(419)[address] [place], [place] 160[address]5-28-2025 09:05-0400Diastolic blood dudwzuik29 mm[Hg]Anibal Petznick DO Work Phone: 1(419)[address] [place], [place] [address]5-28-2025 09:05-0400Heart rate76 /min Anibal Petznick DO Work Phone: 1(419)[address] [place], [place] 160[address]5-28-2025 09:05-2671HoE9% (BldA) [Mass fraction]97 %Anibal Petznick DO Work Phone: 1(419)[address] [place], [place] 160[address]5-28-2025 09:05-0400Systolic blood mm[Hg]Anibal Petznick DO Work Phone: 1(419)[address] [place], [place] 160[address]5-21-2025 10:30-0400Body nqyjrg179.18 cmMatthew Petznick DO Work Phone: 1(419)[address] [place], [place] 365[address]05-21-2025 10:30-0400 Body mass index (BMI) [Ratio]36 kg/o1Umvafmz Petznick DO Work Phone: 1(419)[address] [place], [place] 3658705-21-2025 10:30-0400 Body .32 kgMatthew Petznick DO Work Phone: 1(419)[address] [place], [place] 365[address]05-21-2025 10:30-0400 Diastolic blood cmygmahg17 mm[Hg]Anibal Petznick DO Work Phone: 1419)[address] [place], [place] 3658705-21-2025 10:30-0400 Heart rate56 /minMatthew Petznick DO Work Phone: 1(419)[address] [place], [place] 3658705-21-2025 10:30-0400 Systolic blood metbihaa355 mm[Hg]Anibal Petznick DO Work Phone: 1419)[address] [place], [place] 3658705-02-2025 09:10-0400 Diastolic blood zigflxic62 mm[Hg]Anibal Petznick DO Work Phone: 1(419)[address] [place], [place] 365[address]05-02-2025 09:10-0400 Heart rate59 /minMatthew Petznick DO Work Phone: 1(419)[address] [place], [place] 365[address]05-02-2025 09:10-0400 Respiratory rate16 /minMatthew Petznick DO Work Phone: 1(419)[address] [place], [place] 365[address]05-02-2025 09:10-0400 SaO2% (BldA) [Mass fraction]100 %Anibal Petznick DO Work Phone: 1(419)[address] [place], [place] 365[address]05-02-2025 09:10-0400 Systolic blood hijkuqmw864 mm[Hg]Anibal Petznick DO Work Phone: 1(419)[address] [place], [place] 365[address]05-02-2025 07:28-0400 Body wtnavt263.18 cmMatthew Petznick DO Work Phone: 1(419)[address] [place], [place] 365[address]05-02-2025 07:28-0400 Body fwfabu597.71 kgMatthew Petznick DO Work Phone: 1(419)[address] [place], [place] 365[address]704-15-2025 10:24-0400 Body vowcsg263.18 cmMatthew Petznick DO Work Phone: 1(419)[address] [place], [place] 365[address]704-15-2025 10:24-0400 Body mass index (BMI) [Ratio]34.4 kg/q0Gxfihcy Petznick DO Work Phone: 1(419)[address] [place], [place] 365[address]704-15-2025 10:24-0400 Body wqtmaw57.79 kgMatthew Petznick DO Work Phone: 1(419)[address] [place], [place] 365[address]704-15-2025 10:24-0400 Diastolic blood mm[Hg]Anibal Petznick DO Work Phone: 1419)[address] [place], [place] 365[address]704-15-2025 10:24-0400 Heart rate84 /minMatthew Petznick DO Work Phone: [facility]04-15-2025 10:24-0400 Systolic blood jjmqmbar257 mm[Hg]Anibal Juan DO Work Phone: [facility]03-06-2025 10:56-0500 Body neendw039.2 Cameron No MD Work Phone: [facility]03-06-2025 10:56-0500Body mass index (BMI) [Ratio]34.93 kg/n0WjfdavChris No MD Work Phone: [facility]03-06-2025 10:56-0500Body .15 kgChris No MD Work Phone: [facility]03-06-2025 10:56-0500Diastolic blood ikbigrba09 mm[Hg]Chris No MD Work Phone: [facility]03-06-2025 10:56-0500Heart rate55 /min Chris No MD Work Phone: [facility]03-06-2025 10:56-0500Respiratory rate 18 /minChris No MD Work Phone: [facility]03-06-2025 10:56-0500Systolic blood vwicijfe173 mm[Hg]Chris No MD Work Phone: [facility]02-03-2025 15:40-0500Body ndrnry633.2 cmAllsaba Petpablo DO Work Phone: no[facility] CenterVawhnngyvw31-73-7718 15:40-0500Body mass index (BMI) [Ratio]35.55 kg/x5Nqblddh Petznick DO Work Phone: noSaint [facility] CenterEhtgoqhhrq11-74-9717 15:40-0500Body temperature 98.1 [degF]Vandana Petznick DO Work Phone: noSaint [facility] CenterMqviznpgav52-76-5670 15:40-0500Body .97 kgAllison Petznick DO Work Phone: noSaint [facility] CenterQuosbfjgfm73-06-9254 15:40-0500Diastolic blood gmksyzsa48 mm[Hg]Vandana Petznick DO Work Phone: 1(516)[address] [place], [place] 160[address]2-03-2025 15:40-0500Heart rate76 /min Vandana Petznick DO Work Phone: 1419)[address] [place], [place] 1602302-03-2025 15:40-6403JpJ3% (BldA) [Mass fraction]96 %Vandana Petznick DO Work Phone: 1(115)[address] [place], [place] 1602302-03-2025 15:40-0500Systolic blood uyamsibx821 mm[Hg]Vandana Petznick DO Work Phone: 1(274)[address] [place], [place] 1602301-22-2025 14:16-0500Diastolic blood jgqyhmlm53 mm[Hg]Anibal Petznick DO Work Phone: 1(123)[address] [place], [place] 3658701-22-2025 14:16-0500 Heart rate68 /minMatthew Petznick DO Work Phone: 1(279)[address] [place], [place] 3658701-22-2025 14:16-0500 Respiratory rate18 /minMatthew Petznick DO Work Phone: 1(685)[address] [place], [place] 3658701-22-2025 14:16-0500 SaO2% (BldA) [Mass fraction]98 %Anibal Petznick DO Work Phone: 1(386)[address] [place], [place] 3658701-22-2025 14:16-0500 Systolic blood mm[Hg]Anibal Petznick DO Work Phone: 1(726)[address] [place], [place] 3658701-22-2025 11:34-0500 Body udzkse509.18 cmMatthew Petznick DO Work Phone: 1419)[address] [place], [place] 3658701-22-2025 11:34-0500 Body yvfpkp839.6 kgMatthew Petznick DO Work Phone: 1(827)[address] [place], [place] 3658701-14-2025 10:59-0500 Body .2 cmMatthew Petznick DO Work Phone: 1(483)[address] [place], [place] 1602301-14-2025 10:59-0500Body mass index (BMI) [Ratio]35.24 kg/x6Rltaijlrohan Juan DO Work Phone: [facility] HospitalQctcjqufbl43-52-4612 10:59-0500Body temperature 98.1 [degF]Anibal Juan DO Work Phone: 1(353)189-[address] [place], [place] [address]Ptjnnbicmh72-16-2492 10:59-0500Body rsrmqo361.06 kgMattrohan Juan DO Work Phone: 1(683)[facility] [place], [place] [address]Boqfwnuveu94-81-2802 10:59-0500Diastolic blood hmtscekj43 mm[Hg]Anibal Juan DO Work Phone: 1(087)[facility] [place], [place] [address]Nnioaouqem66-37-4312 10:59-0500Heart rate72 /min Anibal Juan DO Work Phone: 1(225)[facility] [place], [place] [address]Gzcadjpyxs70-01-7158 10:59-8826OpO0% (BldA) [Mass fraction]97 %Anibal Juan DO Work Phone: 1(121)[facility] [place], [place] [address]Yynkuoojlg54-54-0134 10:59-0500Systolic blood mm[Hg]Anibal Juan DO Work Phone: 1(334)128-[address] [place], [place] [address]Izmpjdhokb28-95-9136 14:04-0500Body ltdecu016.2 cmJason Kimble MD Work Phone: [facility] HospitalYakbdsiarf55-55-1902 14:04-0500Body mass index (BMI) [Ratio]34.93 kg/r5VfbxauJason Kimble MD Work Phone: [facility] HospitalYnavmbvzdj48-52-5295 14:04-0500Body dfifnf677.15 kgJason Kimble MD Work Phone: [facility] HospitalSfehcwyqui18-63-5251 14:04-0500Diastolic blood uqjpmwdk70 mm[Hg]Jason Kimble MD Work Phone: [facility] HospitalRtublhtsoq18-77-2636 14:04-0500Systolic blood vxvlyjpk416 mm[Hg]Jason Kimble MD Work Phone: [facility] HospitalDearjhwvgx20-37-2633 13:57-0500Body mass index (BMI) [Ratio]31.66 kg/f4AerjoxChris No MD Work Phone: [facility]12-05-2024 13:57-0500Body ixvtai544.8 kgChris No MD Work Phone: [facility]12-05-2024 13:57-0500Diastolic blood cmincpju01 mm[Hg]Chris No MD Work Phone: [facility]12-05-2024 13:57-0500Heart rate66 /min Chris No MD Work Phone: [facility]12-05-2024 13:57-0500Respiratory rate 16 /minChris No MD Work Phone: [facility]12-05-2024 13:57-0500Systolic blood isftdrzr759 mm[Hg]Chris No MD Work Phone: [facility]12-04-2024 10:06-0500Body .2 cmMattashleykellie Drake DO Work Phone: no[facility] CenterYgtuxjagfv14-85-8180 10:06-0500Body mass index (BMI) [Ratio]35.71 kg/g4QpvryhxAnibal Mccannick DO Work Phone: noSaint [facility] CenterGgybyinfcu05-91-8544 10:06-0500Body temperature 98.01 [degF]Anibal Morochopablo DO Work Phone: no[facility] CenterIhtwgfdupn11-54-5402 10:06-0500Body pymwyb265.42 kgMattrohan Juan DO Work Phone: noSaint [facility] CenterTgwrurrzmy28-34-5390 10:06-0500Diastolic blood rdaceyyv12 mm[Hg]Anibal Juan DO Work Phone: noSaint [facility] CenterKlgwrnomea52-94-0280 10:06-0500Heart rate65 /min Anibal Baileepablo DO Work Phone: [place] [address]Utkhfcqgrb63-18-6518 10:06-5933TlA3% (BldA) [Mass fraction]98 %Anibal Juan DO Work Phone: 1(168)[facility] [place], [place] [address]Htkbxmwpgy33-19-1158 10:06-0500Systolic blood mvypimkg470 mm[Hg]Anibal Juan DO Work Phone: 1(114)[facility] [place], [place] [address]Cjeqouxiir19-15-5683 10:51-0400Body ellezl059.2 cmMattashleyw Petpablo DO Work Phone: 1(375)[facility] [place], [place] [address]Vpibafyycp99-15-2175 10:51-0400Body mass index (BMI) [Ratio]34.77 kg/k9Olsuyfb Petznick DO Work Phone: 1(605)[facility] [place], [place] [address]Gpqjzajrsg03-51-4751 10:51-0400Body temperature 98.01 [degF]Anibal Juan DO Work Phone: 1(140)[facility] [place], [place] [address]Xgcdcozpzg91-09-2034 10:51-0400Body bnpxib829.7 kgMatthew Petpablo DO Work Phone: 1(659)[facility] [place], [place] [address]Jgookqmkcv17-98-3221 10:51-0400Diastolic blood ezssgzxd85 mm[Hg]Anibal Juan DO Work Phone: 1(784)[facility] [place], [place] [address]Sanyrnavwa31-08-3762 10:51-0400Heart rate68 /min Anibal Juan DO Work Phone: 1(837)[facility] [place], [place] [address]Iznwpafpuq20-55-1724 10:51-7214PsU9% (BldA) [Mass fraction]97 %Anibal Juan DO Work Phone: 1(865)[facility] [place], [place] [address]Rvgmparpmc18-44-5514 10:51-0400Systolic blood wxuyfynl701 mm[Hg]Anibal Juan DO Work Phone: 1(464)[address] [place], [place] 1602310-02-2024 12:48-0400Body .2 cmMattashleyw Petdeloiick DO Work Phone: 1(622)[address] [place], [place] 1602310-02-2024 12:48-0400Body mass index (BMI) [Ratio]34.46 kg/i3Jxdaepb Siobhanick DO Work Phone: 1(365)[facility] [place], [place] [address]Qkpdtxthvg91-87-0723 12:48-0400Body temperature 98.2 [degF]Anibal Juan DO Work Phone: noSaint [facility] CenterUlfxbiqyqo78-06-4221 12:48-0400Body hffrut42.79 kgMattrohan Juan DO Work Phone: NOSaint [facility] Health CenterCxyfgdyvhg64-53-3676 12:48-0400Diastolic blood drvqalco00 mm[Hg]Anibal Juan DO Work Phone: noSaint [facility] CenterBplmaytzjw17-94-6365 12:48-0400Heart rate60 /min Anibal Juan DO Work Phone: noSaint [facility] CenterUlwvxygwin21-48-7163 12:48-7903EtL4% (BldA) [Mass fraction]98 %Anibal Juan DO Work Phone: noSaint [facility] CenterMbjinizdhj68-26-8954 12:48-0400Systolic blood ehulzafk894 mm[Hg]Anibal Juan DO Work Phone: noSaint [facility] CenterWydtamaevx04-66-7021 11:30-0400Body wyynyw994.2 cmRsantino No MD Work Phone: [facility]09-23-2024 11:30-0400Body mass index (BMI) [Ratio]30.7 kg/s5OpeahzChris No MD Work Phone: [facility]09-23-2024 11:30-0400Body xobgqf08.7 kgChris No MD Work Phone: [facility]09-23-2024 11:30-0400Diastolic blood aqhmcxpx09 mm[Hg]Chris No MD Work Phone: [facility]09-23-2024 11:30-0400Heart rate67 /min Chris No MD Work Phone: [facility]09-23-2024 11:30-0400Respiratory rate 16 /minChris No MD Work Phone: [facility]09-23-2024 11:30-0400Systolic blood sdskghce247 mm[Hg]Chris No MD Work Phone: [facility]07-22-2024 11:21-0400Body iojnmu301.2 cmRsantino No MD Work Phone: [facility]07-22-2024 11:21-0400Body mass index (BMI) [Ratio]31.07 kg/s3JflbwiChris No MD Work Phone: [facility]07-22-2024 11:21-0400Body ucwqtm101.9 kgChris No MD Work Phone: [facility]07-22-2024 11:21-0400Diastolic blood emxpbnro78 mm[Hg]Chris No MD Work Phone: [facility]07-22-2024 11:21-0400Heart rate64 /min Chris No MD Work Phone: [facility]07-22-2024 11:21-0400Systolic blood fugsgvnv666 mm[Hg]Chris No MD Work Phone: [facility]06-24-2024 15:07-0400Diastolic blood vkzgtajo19 mm[Hg]Sarabjit Phillips PERMANENT WAVER-ARTICULATION OFFICER Work Phone: [facility]06-24-2024 15:07-0400 Systolic blood iecenaqv114 mm[Hg]Sarabjit Phillips PERMANENT WAVER-ARTICULATION OFFICER Work Phone: [facility]06-24-2024 14:36-0400 Body .2 cmSarabjit Phillips PERMANENT WAVER-ARTICULATION OFFICER Work Phone: [facility]06-24-2024 14:36-0400 Body mass index (BMI) [Ratio]35.4 kg/y1MciywSarabjit Phillips PERMANENT WAVER-ARTICULATION OFFICER Work Phone: [facility]06-24-2024 14:36-0400 Body xtawqt657.51 kgSarabjit Phillips PERMANENT WAVER-ARTICULATION OFFICER Work Phone: [facility]06-24-2024 14:36-0400 Heart rate66 /minDrikki Phillips PERMANENT WAVER-ARTICULATION OFFICER Work Phone: [facility]04-29-2024 09:34-0400 Body mass index (BMI) [Ratio]36.39 kg/v9UopkzwChris No MD Work Phone: [facility]04-29-2024 09:34-0400Body .4 kgChris No MD Work Phone: [facility]04-29-2024 09:34-0400Diastolic blood jvmansys20 mm[Hg]Chris No MD Work Phone: [facility]04-29-2024 09:34-0400Heart rate72 /min Chris No MD Work Phone: [facility]04-29-2024 09:34-0400Systolic blood uslnlpny526 mm[Hg]Chris No MD Work Phone: [facility]02-22-2024 14:01-0500Body ttsyjq907.69 kgChris No MD Work Phone: cSt[facility] HospitalJfvzxx83-76-2426 14:01-0500Diastolic blood bcvmokoj92 mm[Hg]Chris No MD Work Phone: [facility] HospitalRifxjc97-92-4841 14:01-0500Heart rate81 /min Chris No MD Work Phone: [facility] HospitalKylvpm88-57-2384 14:01-0500Systolic blood vnooecmu437 mm[Hg]Chris No MD Work Phone: cSt. [facility] HospitalVcbkjd06-81-0102 10:40-0500Body pgpoin615.18 cmRyan Scovanner Other [facility]01-18-2024 10:40-0500 Body mass index (BMI) [Ratio]36.02 kg/m2Ryan Scovanner Other [employer] Other 01-18-2024 10:40-0500Body fighsj448.33 kgRyan Scovanner Other [employer] Other 01-18-2024 10:40-0500Body ynxmio726.32 kgDO Anibal Juan Work Phone: [facility]11-29-2023 10:30-0500 Body uevjig771.2 cmOleg Malloy MD Work Phone: [facility] HospitalGcxmij12-53-6648 10:30-0500Body pkijah624.59 kgOleg Malloy MD Work Phone: cSt. [facility] HospitalDqmfds97-08-2309 10:30-0500Respiratory rate 20 /minOleg Malloy MD Work Phone: cSt. [facility] HospitalPjdsbj58-90-7468 12:33-0500Body eswuza954.2 cmRena Becerra MD Work Phone: [address] [place], [place] 1220211-16-2023 12:33-0500 Body mass index (BMI) [Ratio]36.49 kg/z5BazmhiRena Becerra MD Work Phone: [address] [place], [place] 1220211-16-2023 12:33-0500 Body uqtqrc435.69 kgRena Becerra MD Work Phone: [phone] [place], [place] 5318511-16-2023 12:33-0500 Diastolic blood kgpafatc16 mm[Hg]Rena Becerra MD Work Phone: [address] [place], [place] 1220211-16-2023 12:33-0500 Heart rate56 /Jessica Becerra MD Work Phone: [phone] [place], [place] 5318511-16-2023 12:33-0500 Systolic blood tbzprojc341 mm[Hg]Rena Becerra MD Work Phone: [phone] [place], [place] 5318511-13-2023 10:20-0500 Body xhnzso170.2 cmBenji Kimble MD Work Phone: [facility]11-13-2023 10:20-0500Body sfeuzq507.66 kgBenji Kimble MD Work Phone: [facility]10-28-2023 11:19-0400Body weigaf438.[address] [place], [place] 7036310-28-2023 11:19-0400Body mass index (BMI) [Ratio]35.08 kg/m2Ely [address] [place], [place] 7036310-28-2023 11:19-0400Body .[address] [place], [place] 7036308-28-2023 11:56-0400Diastolic blood qunloxvh65 mm[Hg]Anibal Juan Work Phone: mp129-2035JG-Bfhii [facility] DO Work Phone: 1(370) 288-927308-28-2023 11:56-0400Diastolic blood oqwwcqky25 mm[Hg] Anibal Juan Work Phone: mp560-8677NH-Isrfu [facility] DO Work Phone: 1(520) 664-380008-28-2023 11:56-0400Systolic blood xvpujixg350 mm[Hg] Anibal Juan Work Phone: mp907-1980ZC-Wdcfa [facility] DO Work Phone: 1(667) 940-559008-28-2023 11:56-0400Systolic blood tqbtnupo293 mm[Hg] Anibal Juan Work Phone: mp879-3430UM-Ljhfr [facility] DO Work Phone: 1(730) 750-352708-28-2023 11:24-0400Diastolic blood wbzekwcu88 mm[Hg] Anibal Juan Work Phone: mp540-1149PX-Jjkmu [facility] DO Work Phone: 1(228) 982-604108-28-2023 11:24-0400Systolic blood qyqfgdqu386 mm[Hg] Anibal Juan Work Phone: mp746-7153ZR-Dibpf [facility] DO Work Phone: 1(701) 889-478008-28-2023 11:23-0400Body .18 cmMattrohan Mccannick Work Phone: mp530-3568CF-Qgxnq [facility] DO Work Phone: 1(693) 814-931108-28-2023 11:23-0400Body mass index (BMI) [Ratio] 35.08 kg/i4Ayntdrd C Petznick Work Phone: mp438-1193MW-Ynqjk [facility] DO Work Phone: 1(188) 799-459008-28-2023 11:23-0400Body surface area Derived from formula2.12 j0Kjugehe C Petznick Work Phone: mp597-0495KH-Mkdhm [facility] DO Work Phone: 1(126) 244-398208-28-2023 11:23-0400Body .61 kgMatthew C Petznick Work Phone: mp064-0421EC-Rpxej [facility] DO Work Phone: 1(974) [phone] 11:23-0400Diastolic blood siesakcf30 mm[Hg] Anibal C Petznick Work Phone: mp448-7852ER-Ssbrx [facility] DO Work Phone: 1(690) 837-802508-28-2023 11:23-0400Heart rate72 /minMatthew C Petznick Work Phone: mp923-3205SA-Swjio [facility] DO Work Phone: 1(401) 240-164708-28-2023 11:23-0400Systolic blood mm[Hg] Anibal C Petznick Work Phone: mp192-6136QY-Tvwhj [facility] DO Work Phone: 1(382) 978-331908-18-2023 12:13-0400Body obtbinwuuki49.8 [degF]DO Anibal Petznick Work Phone: [facility]08-18-2023 12:07-0400 Heart rate63 /minDO Anibal Petznick Work Phone: 1([phone] [place], [place] 6560508-18-2023 11:34-0400 Diastolic blood azktmjto03 mm[Hg]DO Anibal Petznick Work Phone: [phone])[address]08-18-2023 11:34-0400 Respiratory rate18 /minDO Anibal Petznick Work Phone: [facility]08-18-2023 11:34-0400 SaO2% (BldA) [Mass fraction]99 %DO Anibal Juan Work Phone: [phone] [place], [place] 6560508-18-2023 11:34-0400 Systolic blood bklyxbeq575 mm[Hg]DO Anibal Juan Work Phone: [phone] [place], [place] 6560508-18-2023 10:34-0400 Body eumbly661.18 cmDO Anibal Juan Work Phone: [phone] [place], [place] 6560508-18-2023 10:34-0400 Body .6 kgDO Anibal Juan Work Phone: [phone] [place], [place] 6560504-20-2023 10:00-0400 Body wqpnjy122.18 Aide Mckee Other [employer] Other 04-20-2023 10:00-0400Body mass index (BMI) [Ratio] 36.18 kg/m2Rex Raleighyouner Other [employer] Other 04-20-2023 10:00-0400Body agtpwc896.78 kgRynorberto Scovanner Other [facility] [employer] Other 04-20-2023 10:00-0400Diastolic blood yvzvunxc43 mm[Hg] Rex Mckee Other [employer] Other 04-20-2023 10:00-0400Systolic blood zrtjawid580 mm[Hg] Rex Mckee Other [employer] Other 03-27-2023 16:45-0400Diastolic blood qizzpeja70 mm[Hg] Chris No MD Work Phone: cSt. [facility] HospitalPkmytm27-63-6352 16:45-0400Heart rate66 /min Chris No MD Work Phone: [phone] Mwykdu74-69-8673 16:45-0400Systolic blood jbjkohyz454 mm[Hg]Chris No MD Work Phone: [phone] Vsfnqd79-64-4608 14:50-0500Body ruzdpa679.2 cmRsantino No MD Work Phone: [phone] Cmkprh48-44-6749 14:50-0500Body temperature 98.49 [degF]Chris No MD Work Phone: [phone] Bhloqi19-95-7761 14:50-0500Body vrnrnu951.01 kgChris No MD Work Phone: [phone] Fbzuvb01-82-4095 14:50-0500Diastolic blood mm[Hg]Chris No MD Work Phone: [phone])[phone] Tsliob13-09-6774 14:50-0500Heart rate81 /min Chris No MD Work Phone: [phone] Odtwcg84-69-8312 14:50-0500Systolic blood qsesxjis934 mm[Hg]Chris No MD Work Phone: [phone] Hqxfoj86-50-1336 11:13-0500Body vaynhc278.18 cmMatthew C Petznick Work Phone: mp880-8707IV-QfsacKaiser Foundation Hospital-[facility] Work Phone: 1(147) 754-981411-28-2022 11:13-0500Body mass index (BMI) [Ratio] 35.71 kg/n1Rccxohi C Petznick Work Phone: mp526-3710BH-Mzbaf [employer] Work Phone: 1(793) 778-529311-28-2022 11:13-0500Body surface area Derived from formula2.14 n5Ekjinnr C Petznick Work Phone: mp395-8410KT-ZkpwyKaiser Foundation Hospital-Mi-[facility] Work Phone: 1(155) 217-611711-28-2022 11:13-0500Body ahgjoq069.42 kgMattrohan Mccannick Work Phone: mp424-5358DA-QdodfHealthsouth - [facility] Work Phone: 1(855) 734-952311-28-2022 11:13-0500Diastolic blood ndhimpic28 mm[Hg] Anibal Juan Work Phone: mp749-6181WW-VnbcyHealthsouth - [facility]ty [facility] Work Phone: 1(703) 530-478511-28-2022 11:13-0500Heart rate86 /minMatthew C Petdelioick Work Phone: mp046-6181OS-RsjgrHealthsouth - [facility] Work Phone: 1(284) 508-937311-28-2022 11:13-2849IjZ9% (BldA) [Mass fraction]97 % Anibal Juan Work Phone: mp541-0855EV-MaiupHealthsouth - [facility]ty [facility] Work Phone: 1(389) 245-604111-28-2022 11:13-0500Systolic blood juqpfmta982 mm[Hg] Anibal Juan Work Phone: mp154-1483AO-TokovHealthsouth - Specialty [facility] Work Phone: 1(521) 249-980409-23-2022 15:03-0400Respiratory rate16 /Bulmaro Lamb MD Work Phone: [facility] SECNoquo09-23-2022 11:45-0400Body tjwuteohptv85 [degF]Rodney Lamb MD Work Phone: [facility] SECNoquo09-23-2022 11:45-0400Diastolic blood kkhxedcy57 mm[Hg]Rodney Lamb MD Work Phone: [phone] SECNoquo09-23-2022 11:45-0400Heart rate72 /Bulmaro Lamb MD Work Phone: [facility] SECNoquo09-23-2022 11:45-6980VkB3% (BldA) [Mass fraction]94 %Rodney Lamb MD Work Phone: [phone] GinxVIUFPT98-74-0691 11:45-0400Systolic blood mm[Hg]Rodney Lamb MD Work Phone: [facility]09-22-2022 11:54-0400Body ecqvlt664.6 cmRodney Lamb MD Work Phone: [facility]09-22-2022 11:54-0400Body mass index (BMI) [Ratio]39.53 kg/v2TfnrpbsRodney Lamb MD Work Phone: [facility]09-22-2022 11:54-0400Body drssne544.09 kgRodney Lamb MD Work Phone: [facility]09-15-2022 15:27-0400Body qietek428.9 cmMloz [address]RI [facility]09-15-2022 15:27-0400Body mass index (BMI) [Ratio]36.34 kg/m2Mloz [address] [place], [place] 7273409-15-2022 15:27-0400Body ffymdwdyals14.2 [degF][address]09-15-2022 15:27-0400Body jjtgey190.[address] [place], [place] 7273409-15-2022 15:27-0400Diastolic blood hnseudsv36 mm[Hg]Ml[address]09-15-2022 15:27-0400Heart rate66 /minMloz [address] [place], [place] 7273409-15-2022 15:27-0400Respiratory rate16 /minMloz [address] [place], [place] 7273409-15-2022 15:27-6947UvB9% (BldA) [Mass fraction]98 %[address]09-15-2022 15:27-0400Systolic blood dstnmksi573 mm[Hg]oz SHERRI [facility]08-29-2022 11:18-0400Body height 170.18 cmAnibal Juan Work Phone: [phone] 124-2180795-3478WE-GtsabJFK [facility] Institute Work Phone: 1(292) 205-6935615577-34-7914 11:18-0400Body mass index (BMI) [Ratio] 35.87 kg/u4Oslyafz C Petznick Work Phone: mp630-0695KO-Mnjgb [employer] Work Phone: 1(559) 115-629708-29-2022 11:18-0400Body surface area Derived from formula2.14 c1Orxgjza C Petznick Work Phone: mp404-5924UA-Krsbn [employer] Work Phone: 1(856) [phone] 11:18-0400Body .87 kgMatthew C Petznick Work Phone: mp898-2584WD-Nqych PassadoP[facility]mouth Work Phone: 1(157) 232-985608-29-2022 11:18-0400Diastolic blood mm[Hg] Anibal Álvarez Petznick Work Phone: mp181-0664TY-KvgloHealthsouth - [facility]ty [facility] Work Phone: 1(853) 206-760508-29-2022 11:18-0400Heart rate59 /minMatthew C Petznick Work Phone: mp453-2220SE-WagbqHealthsouth - Specialty [facility] Work Phone: 1(698) 435-656708-29-2022 11:18-5973DxP8% (BldA) [Mass fraction]96 % Anibal Álvarez Petznick Work Phone: mp438-8138KL-EoslsOrthopaedic HospitalPlymouth Work Phone: 1(514) [phone] 11:18-0400Systolic blood eaafspud391 mm[Hg] Anibal Álvarez Petznick Work Phone: mp177-8887RV-Pigkk [facility] Work Phone: 1(637) 240-410408-10-2022 09:35-0400Body slcqvo861.18 cmMatthew C Petznick Work Phone: mp905-3885LZ-Uycfdz For OrthopedicsL[facility] Work Phone: 1(301) 893-611908-10-2022 09:35-0400Body mass index (BMI) [Ratio] 36.02 kg/s4Cyzsvdg C Petznick Work Phone: mp121-4910HM-Igjjld [facility] OrthopedicsL[facility] Work Phone: 1(527) 122-246408-10-2022 09:35-0400Body surface area Derived from formula2.15 o7Vqyvopl C Petznick Work Phone: mp361-4470ZP-TyqcudWythe County Community HospitalsLancaster [facility] Hospital Work Phone: 1(225) 791-820608-10-2022 09:35-0400Body pynbtq592.33 kgMatthew C Petznick Work Phone: mp194-6363QV-FtejbwWythe County Community HospitalsLancaster [facility] Work Phone: 1(909) 165-517506-29-2022 15:29-0400Body hvdahr914.4 cmMatthew C Petznick Work Phone: mp758-0541LJ-Futpk [facility] [employer] Work Phone: 1(628) [phone] 15:29-0400Body mass index (BMI) [Ratio] 44.72 kg/e5Tdtvvkp C Petznick Work Phone: mp179-9103CT-Psfco [facility] [employer] Work Phone: 1(732) 204-582206-29-2022 15:29-0400Body surface area Derived from formula1.98 e3Gtddzer C Petznick Work Phone: mp593-2132FD-Mngax [facility] Work Phone: 1(307) 757-785906-29-2022 15:29-0400Body tacuim287.87 kgMatthew C Petznick Work Phone: mp040-2714TB-Mynza [facility] [employer] Work Phone: 1(869) [phone] 15:29-0400Heart rate74 /minMatthew C Petznick Work Phone: mp708-3875KU-Tqnpf [facility] [employer] Work Phone: 1(793) [phone] 15:29-4804FbD7% (BldA) [Mass fraction]95 % Anibal C Petznick Work Phone: mp584-0385CK-Ikbrq [employer] Work Phone: 1(337) 316-907806-29-2022 15:29-26461 1Matthew Henri Petznick Work Phone: mp604-5596JN-ChwytKaiser Foundation Hospital-[place] Work Phone: Comment on above:BeeiLanhy60-45-1681 11:12-0400Body wdhadz478 cmMatthew C Petznick Work Phone: mp267-1732YW-RcbnacackuftLong Prairie [facility] [address] DO Work Phone: 1(161) 370-201304-14-2022 11:12-0400Body mass index (BMI) [Ratio]36.1 kg/j8Ldhoatn C Petznick Work Phone: mp793-6122BU-GcwbcpobsfvvLong Prairie [facility] [address] DO Work Phone: 1(789) 602-271804-14-2022 11:12-0400Body surface area Derived from formula2.14 h9Hoblbkg Henri Petznick Work Phone: mp475-0716RM-MedxwwtblgnfLong Prairie Memorial [facility] [address] DO Work Phone: 1(752) 434-809404-14-2022 11:12-0400Body cbadmf892.33 kgMatthew Henri Petznick Work Phone: mp009-0824GP-VzglridydjlrLong Prairie [facility] [address] DO Work Phone: 1(243) 176-859504-14-2022 11:12-0400Diastolic blood rbwbvzao75 mm[Hg] Anibal Henri Baileeznick Work Phone: mp523-3804WC-WtucsjkufkrvLong Prairie [facility] [address] DO Work Phone: 1(974) 127-617704-14-2022 11:12-0400Systolic blood uyfxhpyf946 mm[Hg] Anibal Henri Petznick Work Phone: mp719-5905BM-KatmqpmgggpjLong Prairie [facility] [address] DO Work Phone: 1(124) 176-584207-20-2021 16:07-0400Body .18 cmMatthew Henri Petznick Work Phone: mp601-2529MK-Oxhwuq For OrthopedicsL[facility] Work Phone: 1(754) 156-874407-20-2021 16:07-0400Body mass index (BMI) [Ratio] 35.71 kg/p9Bsbcdyc C Petpablo Work Phone: mp131-5834QH-VsrwvsAll[facility] Work Phone: 1(395) 746-942107-20-2021 16:07-0400Body surface area Derived from formula2.14 e2Gixgvun C Petpablo Work Phone: mp104-3428RL-LtcqkeAll[facility] Work Phone: 1(959) 260-420107-20-2021 16:07-0400Body jfycjk634.42 kgMatthew C Drake Work Phone: mp503-4829VY-SarnwlAll[facility]Health [facility] Work Phone: 1(515) 985-399008-14-2020 09:48-0400Body Xlnmbgbqsby33.2 [degF] [facility] MI65-54-0906 09:48-0400BP Ddugvschl24 mm[Hg] [facility] RA60-45-4690 09:48-0400BP Atauigck117 mm[Hg] [facility], HC57-45-4476 09:48-0400Pulse (Heart Rate)67 /minState mental health facility, NV27-42-5751 09:48-0400Pulse Tikhzoik43 % [facility], QP94-89-1046 09:48-0400Respiratory Rate18 /minSerenityKettering Health [facility], DZ39-22-9496 07:57-0400BMI (Body Mass Index)37.12 kg/g6GrnxeqbState mental health facility, MU89-15-1452 07:57-0400Body .5 kgWiKettering Health [facility], ZU19-41-5715 07:57-0400Height 170.2 cmWiKettering Health [facility], WB98-22-9103 08:55-0400BMI (Body Mass Index)36.82 kg/m2Ml[address], HG30-32-4586 08:55-0400Body Ahbekbkyxgr85.59 [degF]Ml[address], UG11-80-6164 08:55-0400Body .[address] [place] [address], HW10-04-6355 08:55-0400BP Dgpykdhwi90 mm[Hg]Mloz [address] [place] [address], XS24-89-3050 08:55-0400BP Dykgebir757 mm[Hg]Mloz 1 [facility], IV89-73-1667 08:55-8315Ixpqfd294 [address]lo[address] [place] [address], [place] 11-09-2019 08:55-0400Pulse (Heart Rate)74 /min[address], [place] 11-09-2019 08:55-0400Pulse Pvzvplax97 %[address], ZD55-49-4890 08:55-0400Respiratory Rate16 /minMl[address], [place] Encounters Encounter DateEncounter TypeCare ProviderFacilityStart: 94-72-2342Jysvb out of hoursSamuel Berry MD Work Phone: [facility] [employer] Work Phone: Start: 02-05-2025 End: 67-33-6102lahdkjckucRomxxkhn [place] JONNY [facility] Physical TherapyComment on above:Nonintractable headache, unspecified chronicity pattern, unspecified headache type (Primary Dx); Spondylosis of cervical region without myelopathy or radiculopathy; Arthrodesis status; Radiculopathy, lumbosacral regionStart: 01-31-2025 End: 35-35-1462wmawcdwyggXpnogtkm [place] PTANOMS [facility] Physical TherapyComment on above:Left knee pain, unspecified chronicity (Primary Dx); Sprain of unspecified site of left knee, initial encounter; Strain of unspecified muscle(s) and tendon(s) at lower leg level, left leg, initial encounterStart: 01-30-2025 End: 39-90-0113mlihmmnkvuOrkyiycj [place] PTANOMS [facility] TherapyComment on above:Nonintractable headache, unspecified chronicity pattern, unspecified headache type (Primary Dx); Spondylosis of cervical region without myelopathy or radiculopathy; Arthrodesis status; Radiculopathy, lumbosacral regionStart: 01-30-2025 End: 78-74-9348Hvuopd flowsheetDanielle [place] PTANOMS [facility] Start: 01-30-2025 End: 65-86-1277Tiblzn flowsheetDanielle [place] PTANO [facility] Start: 87-47-5370Qv-person encounterSamuel Berry MD Work Phone: [facility] Work Phone: Start: 01-24-2025 End: 85-14-0952dbylvzngvbTzokkvxg [place] PTANO [facility] TherapyComment on above:Left knee pain, unspecified chronicity (Primary Dx); Sprain of unspecified site of left knee, initial encounter; Strain of unspecified muscle(s) and tendon(s) at lower leg level, left leg, initial encounterStart: 01-17-2025 End: 32-76-9468Lcqfsk flowsheetDanielle [place] PTANOMS [facility] Start: 01-17-2025 End: 22-45-0548Pdmygc flowsheetDanielle [place] PTANOMS [facility] Start: 01-17-2025 End: 16-68-8071urzgtyzaozOkaabdwt [place] PTANO [facility] TherapyComment on above:Nonintractable headache, unspecified chronicity pattern, unspecified headache type (Primary Dx); Spondylosis of cervical region without myelopathy or radiculopathy; Arthrodesis status; Radiculopathy, lumbosacral regionStart: 36-17-5375wksxbmbroiRUZW [facility] Hospitaltart: 01-15-2025 End: 87-62-1484upnadzyesaEKVCJP S PERHALAFacility:[facility] Hospitaltart: 01-15-2025 End: 64-70-5195kuhjfddweoZAOTU ABDELHAMIDFacility:[facility] Start: 01-11-2025 End: 99-51-6026Kdpnxz Shay Ortiz PT Work Phone: noMS [facility] TherapyStart: 01-11-2025 End: 69-45-0176Koocjo Shay Ortiz PT Work Phone: noMS [facility] TherapyStart: 01-11-2025 End: 70-35-9122tjnlmwobxuFagvvi J Evans PT Work Phone: noMS [facility] Physical TherapyComment on above:Left knee pain, unspecified chronicity (Primary Dx); Sprain of unspecified site of left knee, initial encounter; Strain of unspecified muscle(s) and tendon(s) at lower leg level, left leg, initial encounterStart: 01-10-2025 End: 24-66-6204xxlgsfryiuTLGDQ ABDELHAMIDFacility:[facility] Start: 01-09-2025 End: 41-33-7779Hvpbgf outpatient visit 15 minutesRodney Lamb MD Work Phone: [facility] CenterComment on above:Knee strain, left, initial encounter (Primary Dx)Start: 01-09-2025 End: 44-96-8981vbbarbpikkQWZKLLAPaulina LAMBFostoria City Hospitaltart: 01-08-2025 End: 11-47-3045Misubk flowsheetDaleann Parsonsydsevero PORTERNC [facility] Start: 01-08-2025 End: 36-75-7991Qcobyd flowsheetDanielle [place] GERMANNC [facility] Start: 01-08-2025 End: 87-48-6958aunoiyobmwWdmrqvtv Westbrooksevero PORTERNC [facility] TherapyComment on above:Nonintractable headache, unspecified chronicity pattern, unspecified headache type (Primary Dx); Spondylosis of cervical region without myelopathy or radiculopathy; Arthrodesis status; Radiculopathy, lumbosacral regionStart: 01-03-2025 End: 98-19-1081Pijlsg Jayro Boykin [employer] Work Phone: noMS [facility] Physical TherapyStart: 01-03-2025 End: 96-50-8540Yheodh flowsheetTerra Depoy [employer] M[employer] OPERATOR Work Phone: noMS [facility] TherapyStart: 01-03-2025 End: 95-77-4948tzbjzcbribWqpiwpmm Depoy [employer] M[employer] OPERATOR Work Phone: noMS [facility] Physical TherapyComment on above: Nonintractable headache, unspecified chronicity pattern, unspecified headache type (Primary Dx); Spondylosis of cervical region without myelopathy or radiculopathy; Arthrodesis status; Radiculopathy, lumbosacral regionStart: 01-02-2025 End: 17-11-7673feipchcquqTJRXKT S PERHALAFacility:[facility] Start: 12-28-2024 End: 14-77-7350Woladj Shay Ortiz PT Work Phone: noMS [facility] TherapyStart: 12-28-2024 End: 32-18-3088Tfhcgnjanie Ortiz PT Work Phone: noMS [facility] TherapyStart: 12-28-2024 End: 31-52-1207hsadcmdgrvQYOREU J EVANSNot AvailableStart: 12-28-2024 End: 52-77-6682thjtccmzkqByldxm J Evans PT Work Phone: noms [facility] Physical TherapyComment on above: Nonintractable headache, unspecified chronicity pattern, unspecified headache type (Primary Dx); Spondylosis of cervical region without myelopathy or radiculopathy; Arthrodesis status; Radiculopathy, lumbosacral regionStart: 12-26-2024 End: 01-67-8271nlfwdhxpveXaovnp J Evans PT Work Phone: noMS [facility] TherapyComment on above: Nonintractable headache, unspecified chronicity pattern, unspecified headache type (Primary Dx); Spondylosis of cervical region without myelopathy or radiculopathy; Arthrodesis status; Radiculopathy, lumbosacral regionStart: 60-24-3937Urcau out of hoursSamuel Berry MD Work Phone: [facility] Work Phone: Start: 68-12-8448buceldbhswMWMTH GRUBBUniversity Wilbarger General Hospitaltart: 25-78-2993Tr-person encounterSamuel Berry MD Work Phone: [facility] Work Phone: Start: 12-18-2024 End: 39-54-4571Mvrdipeat encounterPhibhakti Mcgowan MD Work Phone: Pain ManagementStart: 12-17-2024 End: 98-45-6760Mxlkwt Shay Ortiz PT Work Phone: no [facility] TherapyStart: 12-17-2024 End: 94-75-8277Eyumdy Shay Ortiz PT Work Phone: no [facility] TherapyStart: 12-17-2024 End: 84-22-6132cytojdsvlhIdqfng J Evans PT Work Phone: noms [facility] Physical TherapyComment on above: Nonintractable headache, unspecified chronicity pattern, unspecified headache type (Primary Dx); Spondylosis of cervical region without myelopathy or radiculopathy; Arthrodesis status; Radiculopathy, lumbosacral regionStart: 12-14-2024 End: 84-25-7624Rksmfh Shay Ortiz PT Work Phone: noMS [facility] TherapyStart: 12-14-2024 End: 15-20-7237Yjxeoh Shay Ortiz PT Work Phone: noMS [facility] TherapyStart: 12-14-2024 End: 47-92-2446mmfahzayuhKcepgz J Evans PT Work Phone: noms [facility] Physical TherapyComment on above:Left knee pain, unspecified chronicity (Primary Dx); Sprain of unspecified site of left knee, initial encounter; Strain of unspecified muscle(s) and tendon(s) at lower leg level, left leg, initial encounterStart: 12-11-2024 End: 57-57-2597tzqzcjmcpfXzchls J Evans PT Work Phone: noms [facility] TherapyComment on above: Nonintractable headache, unspecified chronicity pattern, unspecified headache type (Primary Dx); Spondylosis of cervical region without myelopathy or radiculopathy; Arthrodesis status; Radiculopathy, lumbosacral regionStart: 12-11-2024 End: 44-97-0872Lkatkb Shay Ortiz PT Work Phone: noms [facility] TherapyStart: 12-11-2024 End: 11-59-8369Cmiimk Shay Ortiz PT Work Phone: [facility] TherapyStart: 12-07-2024 End: 75-11-2418Jrxmuh Shay Ortiz PT Work Phone: [facility] TherapyStart: 12-07-2024 End: 66-40-0172Wdlzna Shay Ortiz PT Work Phone: no[facility] TherapyStart: 12-07-2024 End: 59-33-6460hlxwvcmxwvXbkkxp J Evans PT Work Phone: noms [facility] TherapyComment on above: Nonintractable headache, unspecified chronicity pattern, unspecified headache type (Primary Dx); Spondylosis of cervical region without myelopathy or radiculopathy; Arthrodesis status; Radiculopathy, lumbosacral regionStart: 11-29-2024 End: 97-71-3689BebezaDjvnva S Perhala MD Work Phone: RheumatologyComment on above:Refill RequestPhysical therapyStart: 11-28-2024 End: 98-65-5454Ghoigrpbao hospital visit by [facility] 3[facility] CenterComment on above:Left knee pain, unspecified chronicityStart: 11-28-2024 End: 18-04-7406Gvzrwr outpatient visit 15 minutesRodney Lamb MD Work Phone: [facility] CenterComment on above:Knee strain, left, initial encounter (Primary Dx); Left knee pain, unspecified chronicity; Sprain of left knee, initial encounterStart: 11-28-2024 End: 09-98-0807xvlqlxdctiAIGRMZJ B Wilson Healthtart: 11-28-2024 End: 20-26-1666Sxjclvbrn Result EncounterGeneric External Data ProviderNOMS External Department UnsolicitedStart: 11-28-2024 End: 27-39-8201Ycspsgdwn Result EncounterGeneric External Data ProviderNOMS External Department UnsolicitedStart: 11-28-2024 End: 09-00-7148Hrlvyjlgn encounterJosh Mcgowan MD Work Phone: Ambulatory SurgeryComment on above:Schedule Injection Start: 11-27-2024 End: 67-73-5297Qzoyqkhpi Result EncounterGeneric External Data ProviderNOMS External Department UnsolicitedStart: 11-27-2024 End: 43-95-3529Tghpnnfgz Result EncounterGeneric External Data ProviderNOMS External Department UnsolicitedStart: 76-06-1658nubkxemxnwJXMIOFUX G BERENGER [facility] 11-27-2024 End: 57-23-2280Joiceskltz hospital visit by physicianEvans Clark Work Phone: [facility] Radiology GeneralComment on above: History of lumbar fusion [Z98.1]Start: 11-27-2024 End: 82-12-6064Gicghkm encounter procedureJosh Mcgowan MD Work Phone: Pain ManagementComment on above:Facet arthropathy, cervical (Primary Dx); Recurrent occipital headache; Adjacent segment disease of lumbar spine with history of fusion procedure; History of lumbar fusion; Radiculitis, lumbosacral; Rheumatoid arthritis, involving unspecified site, unspecified whether rheumatoid factor present (HCC)Start: 11-27-2024 End: 60-20-0038rfxzwujwlvTWHPLCOT G BERENGERFacility:[facility] Start: 07-59-7359xeqlsxskpqBDGYC GRUBBUniversCrystal Clinic Orthopedic Centertart: 52-93-2724skxzjcupxdVUHAO GRUBBUniLima City Hospitaltart: 10-19-2024 End: 88-10-0836PlynyqIgygom Dayana No MD Work Phone: RheumatologyComment on above:Refill RequestStart: 10-19-2024 End: 88-02-2957ztzmflnureEausspd Drake Work Phone: [facility] Work Phone: Start: 10-19-2024 End: 36-01-8888Afzrmjq encounter procedureRynorberto Hearn [facility] Work Phone: Start: 09-28-2024 End: 19-40-2181Fejwaf-up encounterSclif Arellano MD Work Phone: EndocrinologyStart: 09-28-2024 End: 56-38-9502Wkarqzbqb encounterPhibhakti Mcgowan MD Work Phone: Pain ManagementComment on above:Appointment (questionnaire)Start: 09-26-2024 End: 31-10-9991Ndylpjyhi Result EncounterGeneric External Data ProviderNOMS External Department UnsolicitedStart: 09-26-2024 End: 14-94-4557Yscvdctzm Result EncounterGeneric External Data ProviderNOMS External Department UnsolicitedStart: 09-26-2024 End: 79-05-4788fecwuztvmjRUKOB ELSHEIKHFacility:[facility] Hospitaltart: 09-24-2024 End: 04-43-7441Lrexwu outpatient new 45 minutesKeyshawn Arellano MD Work Phone: EndocrinologyComment on above:Malaise and fatigue (Primary Dx); Vitamin D deficiency; Abnormal weight gainStart: 09-24-2024 End: 61-92-8417kwtywmrobyVIKTV ELSHEIKFacility:[facility] Hospitaltart: 09-18-2024 End: 74-33-2113Tkrkdrfsu Result EncounterGeneric External Data ProviderNOMS External Department UnsolicitedStart: 09-18-2024 End: 79-23-9068Ltoecemwe Result EncounterGeneric External Data ProviderNOMS External Department UnsolicitedStart: 54-51-8466uixikkvquiFFZN [facility]tart: 53-13-1773pfclsznfogRFQXEI S PERHALA [facility]art: 09-18-2024 End: 38-45-6415Mwdrpeaxgh hospital visit by Khushi [facility] (1.5t) Work Phone: RadiologyComment on above:Cervical spine arthritis with nerve pain [M47.812, M79.2]Start: 09-17-2024 End: 32-12-3265J-mail encounter from caregiverMer[facility] Health [facility] Radiology MRIStart: 09-17-2024 End: 28-57-7988Siyykdi encounter procedureMercy Health Kings [facility] Radiology MRIComment on above:MRI resultsStart: 09-11-2024 End: 56-73-4998avxgmjuqslILOJECXEva Mcleod AvailableStart: 09-10-2024 End: 34-26-6728Ndduirw encounter procedureChris No MD Work Phone: RheumatologyComment on above:Rheumatoid arthritis involving multiple sites with positive rheumatoid factor (HCC) (Primary Dx); High risk medication use; H/O iritis; Cervical spine arthritis with nerve pain; Radicular pain in left arm; Spinal stenosis of cervical regionStart: 09-10-2024 End: 06-89-5739sdxescppdzGCGWIWDerrek Blumcility:[facility] Start: 09-05-2024 End: 54-11-6359tlxbdxjestVBPMUHUEva Mcleod AvailableStart: 09-03-2024 End: 62-23-5276Afzcmgfpd encounterChris No MD Work Phone: RheumatologyComment on above:ResultsStart: 08-29-2024 End: 42-69-9329Cvjmgi flowsheetMatthew C Petznick DO Work Phone: NOMS SWS FM 230Start: 08-29-2024 End: 07-30-3369Bbqkax flowsheetMatthew C Petznick DO Work Phone: [phone] SWS FM 230Start: 08-29-2024 End: 96-10-4125Iowpva outpatient visit 25 minutesMatthew C Petznick DO Work Phone: NOMS SWS FM 230Comment on above:Gastroesophageal reflux disease, unspecified whether esophagitis present (Primary Dx); Irritable bowel syndrome, unspecified type; Obesity (BMI 35.0-39.9 without comorbidity); Immunocompromised (CMS/HCC); Chronic fatigue syndrome; Fibromyalgia; Rheumatoid arthritis involving multiple sites with positive rheumatoid factor (CMS/HCC); Vitamin D deficiency; Chronic fatigue; Mass of left side of neckStart: 08-29-2024 End: 41-08-1727gzhpkgelmrORTTUBJ C PETZNICKNot AvailableStart: 08-22-2024 End: 60-05-2295Juuwjby encounter procedureRex Hearn APRMoberly Regional Medical Center Work Phone: Start: 13-98-7750zwrpwlujdkOVPU [facility]art: 08-15-2024 End: 60-32-2429Lkfwtkekb encounterChris No MD Work Phone: RheumatologyComment on above:Insurance Authorization (Rinvoq)Start: 08-06-2024 End: 31-80-5441yfmrpkdeybBoghou S Perhala MD Work Phone: RheumatologyStart: 08-06-2024 End: 42-50-0106Jwetbad encounter procedureChris No MD Work Phone: RheumatologyComment on above:Social Security disabilityStart: 84-10-5791Ung-patient / Non-visitMatthew Petznick DO Work Phone: [facility] Phys[facility] GroupFirst[facility] Work Phone: Start: 08-03-2024 End: 69-32-9158Vljyaubur to same day surgery centerMatthew Petznick DO Work Phone: [facility]-Digestive [facility] Work Phone: Start: 08-03-2024 End: 97-62-6888slrwpiwqjrEnpyudm Petznick DO Work Phone: [facility] Work Phone: Start: 07-24-2024 End: 87-81-9227uyybmjsxibJOLX [facility]tart: 07-17-2024 End: 70-08-2654amrexbldofDnjftyy Petznick DO Work Phone: [facility] Work Phone: Start: 07-17-2024 End: 68-88-9760Vgvqikb encounter procedureMatthew Petznick DO Work Phone: [facility] Physician [facility] Gastro Work Phone: Start: 30-47-9204miqgctghheOTIP [facility]tart: 75-34-1453sxtqywlcgfSKOK [facility]tart: 06-07-2024 End: 22-54-7381Djleebq encounter procedureChris No MD Work Phone: RheumatologyComment on above:Rheumatoid arthritis involving multiple sites with positive rheumatoid factor (HCC) (Primary Dx); High risk medication use; H/O iritisStart: 06-07-2024 End: 24-40-0513jluuwrxnclWWHRGD S PERHALAFacility:[facility] Start: 05-29-2024 End: 52-35-7516WixlgiIybhxn S Perhala MD Work Phone: RheumatologyComment on above:Refill RequestStart: 77-29-0990godqgsrgcbFUBXAshtabula General Hospitaltart: 05-23-2024 End: 26-63-4292plnavbvoqaYAHLMercy Health Tiffin Hospitaltart: 05-10-2024 End: 34-20-1240Emomhipno encounterChris No MD Work Phone: RheumatologyComment on above:Medication Problem (Rinvoq)Start: 80-37-4591goehzfmqstWPGKAshtabula General Hospitaltart: 05-07-2024 End: 48-58-6325Ogmzol outpatient visit 15 minutesAllison M Petznick DO Work Phone: [facility] SWS FM 230Comment on above:Influenza A (Primary Dx)Start: 05-07-2024 End: 85-15-5402iiupjnyelcFQEDFZD M PETZNICKNot AvailableStart: 05-07-2024 End: 17-52-3431Mjpeel flowsheetAllison M Petznick DO Work Phone: N[facility] SWS FM 230Start: 05-07-2024 End: 02-53-1133Tqkpsj flowsheetAllison M Petznick DO Work Phone: [facility] SWS FM 230Start: 52-40-2729Cpw-patient / Non-visitMatthew Petznick DO Work Phone: [facility] Physician [facility] Gastro Work Phone: Start: 66-61-4947Ywp-patient / Non-visitMatthew Petznick DO Work Phone: firFolica Physician [facility] Gastroenterol Work Phone: Start: 04-25-2024 End: 70-92-3936Hydajpjwp to same day surgery centerMatthew Petznick DO Work Phone: [facility]-Digestive Health Work Phone: Start: 04-25-2024 End: 45-52-1093nrmcqqyjofTzchxqg Petznick DO Work Phone: [facility] Work Phone: Start: 25-47-4750wpgaeybmivGTOWAshtabula General Hospitaltart: 04-17-2024 End: 31-65-0426Yzwauj flowsheetMatthew C Petznick DO Work Phone: noms SWS FM 230Start: 04-17-2024 End: 76-53-7283Uwteir flowsheetMatthew C Petznick DO Work Phone: NOOK SWS FM 230Start: 04-17-2024 End: 33-23-2868Wanlyv outpatient visit 25 minutesMatthew C Petznick DO Work Phone: NOMS SWS FM 230Comment on above:Chronic fatigue syndrome (Primary Dx); Arthritis, lumbar spine; Fibromyalgia; Immunocompromised (CMS/HCC); Major depressive disorder, single episode, mild (HCC) (CMS/HCC); Anxiety; Obesity (BMI 35.0-39.9 without comorbidity); Rheumatoid arthritis involving multiple sites with positive rheumatoid factor (CMS/HCC); Spondylolisthesis at L4-L5 level; Numbness and tingling of both lower extremitiesStart: 04-17-2024 End: 47-40-8755lgdoorsnoiPLROAshtabula General Hospitaltart: 04-10-2024 End: 59-07-8393FnivcxZdlzjr S Perhala MD Work Phone: RheumatologyComment on above:Refill RequestStart: 03-30-2024 End: 57-34-5736Uzpmbfxor Mell No MD Work Phone: RheumatologyComment on above:Orders (Rinvoq clarification)Start: 56-09-2811jfhzxsxhqnUYNPAshtabula General Hospitaltart: 03-16-2024 End: 38-39-0600UnltwjUyeoxfTherese No MD Work Phone: [facility] Specialty PharmacyComment on above:Refill Request Start: 03-15-2024 End: 73-56-1468hrfiaeinfvOohluSt. Francis at Ellsworth PharmacyComment on above: Rinvoq approved - Action neededStart: 03-15-2024 End: 04-68-5161J-mail encounter from caregiverS[facility] PharmacyStart: 03-09-2024 End: 91-80-4995lefwonpwaaVhoqnSutter Medical Center of [facility] PharmacyStart: 03-09-2024 End: 49-51-1732Ndjncd flowsheetJason Kimble MD Work Phone: noms ENT NORWALKStart: 03-09-2024 End: 91-48-8544Onnzsv Guerda Kimble MD Work Phone: [facility] CENTERKStart: 03-09-2024 End: 91-75-3885Ymbnrl outpatient new 30 minutesJason Kimble MD Work Phone: noms [facility] MEDICAL CENTERKComment on above:Bilateral impacted cerumen (Primary Dx); Referred otalgia, bilateral; Bilateral hearing loss, unspecified hearing loss typeStart: 03-09-2024 End: 69-24-7626Wyrjlma encounter procedureS[facility] Comment on above:SPP Inflammatory Conditions - Treatment Referral (Rinvoq); Insurance Authorization ([place] pending submission)Start: 03-08-2024 End: 70-55-6383Klvonva encounter Addison No MD Work Phone: RheumatologyComment on above:Rheumatoid arthritis involving multiple sites with positive rheumatoid factor (HCC) (Primary Dx); High risk medication use; H/O iritisStart: 03-08-2024 End: 63-64-1738cbzuulebskKKNFYS S PERHALAFacility:[facility] HospitalStart: 03-08-2024 End: 69-81-5163Zhuotjhpd Result EncounterGeneric External Data ProviderNOMS External Department UnsolicitedStart: 03-08-2024 End: 84-52-6635Iueowhpwf Result EncounterGeneric External Data ProviderNOMS External Department UnsolicitedStart: 03-07-2024 End: 90-74-1387Eurrfh flowsheetMatthew C Petznick DO Work Phone: [facility] SWS FM 230Start: 03-07-2024 End: 36-76-6897Luptrm flowsheetMatthew C Petznick DO Work Phone: [facility] SWS FM 230Start: 03-07-2024 End: 44-52-1555Xmzruv outpatient visit 15 minutesMatthew C Petznick DO Work Phone: NOMS SWS FM 230Comment on above:Sinusitis, unspecified chronicity, unspecified location (Primary Dx); Immunocompromised (CMS/HCC); Other migraine without status migrainosus, not intractable (CMS/HCC); Severe obesity (BMI 35.0-39.9) with comorbidity (CMS/HCC)Start: 03-07-2024 End: 69-58-9938kuuthlbjwfWYNBGMM C PETZNICKNot AvailableStart: 03-05-2024 ambulatoryARUL [facility]tart: 02-20-2024 ambulatoryARUL [facility]tart: 02-15-2024 End: 13-77-8880yrtkmwaskhLXFTF MUSTAPHAUniLima City Hospitaltart: 02-13-2024 End: 08-17-4657Hynlebjii encounterRichard A Visci DO Work Phone: NOMS SWS OBStart: 02-01-2024 End: 88-93-3624Noomxr flowsheetMatthew C Petznick DO Work Phone: [facility] SWS FM 230Start: 02-01-2024 End: 87-30-3221Manamw flowsheetMatthew C Petznick DO Work Phone: [facility] SWS FM 230Start: 02-01-2024 End: 71-98-4240Occdnb outpatient visit 15 minutesMatthew C Petznick DO Work Phone: NOMS SWS FM 230Comment on above:Non-recurrent acute suppurative otitis media of both ears without spontaneous rupture of tympanic me mbranes (Primary Dx); Obesity (BMI 30-39.9); Immunocompromised (CMS/HCC); Rheumatoid arthritis involving multiple sites with positive rheumatoid factor (CMS/HCC)Start: 30-75-2267sqyykctupbSAKBMarymount Hospitaltart: 01-04-2024 End: 74-18-9234Glofby outpatient visit 15 minutesMatthew Henri Drake Work Phone: NOMS SWS FM 230Comment on above:Acute cystitis with hematuria (Primary Dx); Dysuria; Obesity (BMI 30-39.9)Start: 12-26-2023 End: 52-58-5556Givygdd encounter procedureChris No MD Work Phone: RheumatologyComment on above:High risk medication use (Primary Dx); Rheumatoid arthritis involving multiple sites with positive rheumatoid factor ([facility]); H/O iritisStart: 12-15-2023 End: 99-35-0688BjkjwdWpiqzuTherese No MD Work Phone: RheumatologyComment on above:Refill RequestStart: 70-13-4123WxmhpjJgfepjTherese No MD Work Phone: [facility] Specialty PharmacyComment on above:Refill Request Start: 56-93-7061gitszztimlGnfpddDerrek No MD Work Phone: RheumatologyStart: 70-21-2679Ahqhnmi encounter procedureChris No MD Work Phone: RheumatologyComment on above:New RA medsStart: 79-37-1541wjiegoovhmVzethzDerrek No MD Work Phone: RheumatologyStart: 53-86-6276Hosfowr encounter procedureChris No MD Work Phone: RheumatologyComment on above:PainStart: 10-24-2023 Ovidio Tay (Pharmacist)[facility] PharmacyStart: 10-24-2023 End: 69-33-8032Fxpznte encounter procedureChris No MD Work Phone: RheumatologyComment on above:Rheumatoid arthritis involving multiple sites with positive rheumatoid factor (HCC) (Primary Dx); High risk medication use; H/O iritisSPP Inflammatory Conditions - Medication Refill (Xeljanz)SPP Inflammatory Conditions - Treatment Referral (Xeljanz); Insurance Authorization ([place] submission pending)Start: 09-26-2023 End: 53-63-7458Ugtfim outpatient visit [facility] Hospitalekta Ochoa [place] [employer]ICULATION OFFICER Work Phone: uh [employer] CorporationComment on above:PAT (paroxysmal atrial tachycardia) ([facility]-HCC) (Primary Dx); Palpitations; Essential hypertension; Obesity (BMI 35.0-39.9 without comorbidity); Syncope and collapseStart: 09-26-2023 End: 42-44-7615lyhjcdirieTQUZD [facility] AmbulatoryStart: 08-01-2023 End: 79-06-8422Tqjvswj encounter procedureChris No MD Work Phone: RheumatologyComment on above:Rheumatoid arthritis involving multiple sites with positive rheumatoid factor (HCC) (Primary Dx); High risk medication use; H/O iritisStart: 24-26-5647Bsafpcpgr encounterChris No MD Work Phone: RheumatologyComment on above:Insurance Authorization ([place])Start: 87-14-5802ldlqgjmajbXmnxsr S Perhala MD Work Phone: RheumatologyComment on above:PharmacyStart: 05-26-2023 End: 47-19-3456Ctrfrgi encounter procedureChris No MD Work Phone: RheumatologyComment on above:Rheumatoid arthritis involving multiple sites with positive rheumatoid factor (HCC) (Primary Dx); High risk medication use; H/O iritisStart: 05-16-2023 End: 58-42-8242qoztfsdfacHGCamila Juan Work Phone: [facility] Work Phone: Start: 05-16-2023 End: 13-62-7020Tvfqoys encounter procedureDO Anibal Juan Work Phone: [facility]-CT Scan [address] [place] Work Phone: Start: 05-06-2023 End: 49-72-0139Yjxmztlkj Result EncounterGeneric External Data ProviderNOMS External Department UnsolicitedStart: 05-06-2023 End: 88-24-9096Ssxzruqgr Result EncounterGeneric External Data ProviderNOMS External Department UnsolicitedStart: 05-06-2023 End: 97-01-3718vhrcunioytCWDLSVU C [facility] AmbulatoryStart: 05-06-2023 End: 23-91-0013Nlovgf outpatient visit 15 minutesSyed Zaragoza PA-C Work Phone: [facility] HospitalComment on above:S/P total knee replacement, right (Primary Dx); Right knee pain, unspecified chronicityStart: 24-01-3788EzuqkoZuzewnx C Petznick DO Work Phone: noms [facility] FM 230Comment on above:Urinary frequency Start: 05-02-2023 End: 17-73-4680dbcdyscnowSD Anibal Juan Work Phone: [facility] Work Phone: Start: 05-02-2023 End: 48-78-2928Wzpbaug encounter procedureDO Anibal Juan Work Phone: [facility]-Lab [address] [place] Work Phone: Start: 04-21-2023 End: 70-98-6871vszqqcqvynXbmj [employer] Other [employer] Other Start: 13-60-3480Xbckqy outpatient visit 15 minutes Rex Velasquez GastroenterologyStart: 04-21-2023 End: 45-04-0253Mvcsops encounter procedureDO Anibal Juan Work Phone: [facility] Physician Group-Start: 04-05-2023 End: 66-64-1450Ndfpdyndm Result EncounterGeneric External Data ProviderNOMS External Department UnsolicitedStart: 04-05-2023 End: 40-49-2575Ecfewnqxn Result EncounterGeneric External Data ProviderNOMS External Department UnsolicitedStart: 03-04-2023 End: 42-04-2614xmvvwthhmbKS Anibal Juan Work Phone: [facility] Work Phone: Start: 03-04-2023 End: 21-43-1122Wafxpcsrjy RecurringDO Anibal Juan Work Phone: [facility]-Physical Therapy [address]Start: 03-02-2023 End: 32-75-1308Rwkefph encounter procedureOleg Malloy MD Work Phone: [facility] OrthopedicsComment on above:Arthritis of carpometacarpal (CMC) joint of thumb (Primary Dx)Start: 03-02-2023 End: 60-30-2599fhvxxknnqnFpnej Kemp OT/[facility] Comment on above:Bilateral thumb pain (Primary Dx)Start: 02-17-2023 End: 92-51-1926Glagwf outpatient visit 15 minutesRena Becerra MD Work Phone: uh [facility] hospitalComment on above:Palpitations; Shortness of breath; Syncope and collapse; Encounter to discuss test results; PAT (paroxysmal atrial tachycardia); Obesity (BMI 35.0-39.9 without comorbidity); Essential hypertensionStart: 02-17-2023 End: 37-51-8879mfdgjhjttzRRFDPBPiedmont Augusta AmbulatoryStart: 68-79-1188Oppxpvsva encounterBenji Kimble MD Work Phone: OrthopaedicsStart: 02-14-2023 End: 93-26-0156Ulehwot encounter procedureBenji Kimble MD Work Phone: OrthopaedicsComment on above:Arthritis of carpometacarpal (CMC) joint of thumb (Primary Dx); Rheumatoid arthritis involving multiple sites with positive rheumatoid factor (HCC)Start: 02-03-2023 End: 45-54-3104Biicpfpwsz hospital visit by physicianEvans [facility] Work Phone: [facility] Radiology GeneralComment on above: Rheumatoid arthritis involving multiple sites with positive rheumatoid factor (HCC) [M05.79]Start: 01-31-2023 End: 68-50-7280prnmawjitaUGXPKNBrooks Memorial Hospital AmbulatoryStart: 01-29-2023 End: 17-29-6182Nrqsobffqe hospital visit by Errol Coats Echo/Vasc Room [address] [place], [place] [address]Comment on above:Palpitations; Shortness of breath; Syncope and collapseStart: 01-24-2023 End: 79-49-8521syodmxmytiVGXFPCPiedmont Augusta AmbulatoryStart: 12-30-2022 End: 01-51-8947enhmnergvqOROM MUTNALFacility:[facility] HospitalStart: 12-23-20[address] Yoana GascaFacility:[id number]: 65-95-2926Qzltzgvfi for other preprocedural examinationDr. Yoana GascaFacility:8178Start: 07-30-6077XHSSXAmigdeu C Petznick Work Phone: [phone]-Fypya [facility] DO Work Phone: Start: 72-24-3127vfiqcusmlmDzKeyana Becerra Facility:[id number]: 81-28-4767Vokwnhn encounter procedureMattrohan Mccannshane Work Phone: [phone]-Alcjy [facility] [address] DO Work Phone: Start: 11-19-2022 End: 07-12-1834Uibyjhvxg department patient visitDO Anibal Juan Work Phone: [facility]-Emergency Room Work Phone: Start: 04-43-3213Rbitctesd encounterRobert S Perhala MD Work Phone: RheumatologyComment on above:Insurance Authorization Start: 01-65-6157GxalvwUvmcc Keller MD Work Phone: RheumatologyComment on above:Refill Request; Refill RequestStart: 84-24-9426BbykkxFzfvic S Perhala MD Work Phone: RheumatologyComment on above:Refill RequestStart: 75-12-1710Mtvxpjo encounter procedureMayenifer Juan Work Phone: [phone]-Kjfmlz For OrthopedicsL[facility]aster [facility] Work Phone: Start: 37-79-0396ruobbzmyyhYgDr. Anibal JuanFacility:[id number]: 07-22-2022 End: 48-29-0658fmcwkkaplwXaal [employer] Other [employer] Other Start: 97-73-7809Bffqbx outpatient visit 15 minutes Rex Velasquez GastroenterologyStart: 06-28-2022 End: 06-59-6650Gpnfnwp encounter procedureChris No MD Work Phone: RheumatologyComment on above:Rheumatoid arthritis involving multiple sites with positive rheumatoid factor (HCC) (Primary Dx); High risk medication use; H/O iritisStart: 38-74-9922Svpstcp encounter procedureMayenifer Juan Work Phone: [phone]-UeimftWythe County Community HospitalsCoxHealth Work Phone: Start: 21-15-7295rcicolgidiYqxmxxw [place] Facility:[id number]: 06-08-2022 End: 46-85-9029xpbmraspeaYomyxlp [employer] Other [employer] Other Start: 06-37-2468Fosxrgebq encounterCambrent Gerard Palliative CareStart: 56-49-0475yfpkxfegvyLtKeyana Juan Facility:[id number]: 75-08-3293Bxqxxxx encounter procedureMayenifer Juan Work Phone: [phone]-Kkdvft For OrthopedicsL[facility]aster Municipal Hospital Work Phone: Start: 82-03-4759yiiwoycwtlCjnyub S Perhala MD Work Phone: RheumatologyComment on above:SteroidsStart: 04-19-2022 RefillRobert Dayana No MD Work Phone: RheumatologyComment on above:Refill RequestStart: 72-89-6307Ay RenewalAnibal Juan Work Phone: [phone]-KjzdmKaiser [facility] Work Phone: Start: 04-06-2022 End: 04-76-5341Mcagnln encounter Addison No MD Work Phone: RheumatologyComment on above:Rheumatoid arthritis involving multiple sites with positive rheumatoid factor (HCC) (Primary Dx); High risk medication use; Chronic pain of right knee; H/O iritisStart: 04-01-2022 End: 07-43-2520ypusfvwigtPL Anibal Juan Work Phone: [facility] Work Phone: Start: 04-01-2022 End: 84-61-7170Scmzbmi encounter procedureDO Anibal Juan Work Phone: [facility]-Lab [address] [place] Work Phone: Start: 40-64-1044Sk RenewalAnibal Juan Work Phone: mp-[facility] Work Phone: Start: 06-25-9824MAC, Provider: Rodney Lamb, Status: Pen, Time: 9:30 AMMayenifer Juan Work Phone: [phone]-Qkiolc For OrthopedicsFormerly [facility] [place] Work Phone: Start: 40-50-9745rltslllavaVckrdhe [place] Facility:9330Start: 87-13-7877ULCPUUqtxllw C Petznick Work Phone: [phone]-Mqniwf For OrthopedicsFormerly [facility] [place] Work Phone: Start: 61-90-5655Gkhvw UpdateMatthew C Petznick Work Phone: IF-Qfhwg [facility] Work Phone: Start: 39-86-2514Nzhqjr outpatient visit 25 minutes Anibal Henri Petznick Work Phone: PU-Omqbp [facility] Work Phone: Start: 74-86-6887scdccdmudbHqKeyana Walker Nydia [facility] Facility:9561Start: 77-91-0830Ym RenewalMatthew C Petznick Work Phone: OR-Uaxqd [facility] Work Phone: Start: 88-20-8543Ah RenewalMatthew C Petznick Work Phone: [phone]-Bthuex For Orthopedics-[address] [place] [address] [place] Work Phone: Start: 75-74-3479GTLZWMnslevu C Petznick Work Phone: [phone]-QzjqsxnzgcnsfazqAurora Hospital [facility] Work Phone: Start: 29-16-0666VWLSBSegkehe C Petznick Work Phone: [phone]-Ghmtr [facility] Work Phone: Start: 17-09-5991bklbgxsqhfRfgzjhg [place] Facility:[address]Start: 10-49-0305DPYJJPidrnak C Petznick Work Phone: [phone]-Lqyjns For Orthopedics-[address] [place] Work Phone: Start: 98-87-7922Qgprukn encounter procedureMattashleyw C Petznick Work Phone: [phone]-Xohwsa For [facility]opedicsFormerly [facility] [place] Work Phone: Start: 95-31-6532dyqmihffpuYxKeyana Anibal Lombardo DrakeFacility:[address]Uzorl: 07-97-3248Se RenewalMatthew C Petznick Work Phone: [phone]-CyxhqijasjzyAurora Hospital 2500 DO Work Phone: Start: 12-24-2021 End: 95-90-5397lpiiorpceaNQYM R [facility] Scotttart: 12-24-2021 End: 55-01-3088Arlklxncxp hospital visit by Kesha Lamb MD Work Phone: MLOZ 2W Ortho TeleComment on above:Acute post- operative pain (Primary Dx)Start: 97-75-1229Pddzsa ReviewMayenifer Álvarez Petznick Work Phone: [phone]-Icxqmo For Orthopedics-[address] [place] Work Phone: Start: 12-17-2021 End: 32-79-9558cwuslfccbdTOLWVMK B STANOrthoColorado Hospital at St. Anthony Medical Campustart: 12-17-2021 End: 39-43-1563Gisvmlbetf hospital visit by physicianSuni Pat Rm 3[facility] Pre- Admission TestingStart: 34-36-3140Fkcbwazgf for other preprocedural examination MD RODNEY LAMBFannin Regional Hospital CenterStart: 99-07-2700muqkuiyinmRG RODNEY LAMBFacility:[address]Rhegq: 55-23-0028Gwkgfs outpatient visit 25 minutesMatthew C Petznick Work Phone: [phone]-RsrgqK[facility] Work Phone: Start: 59-13-6786Rnlrh UpdateMatthew C Petznick Work Phone: [phone]-LouutlxouaciAurora Hospital 2500 DO Work Phone: Start: 53-41-4850kvmsssofpjUnolim MuohFacility:[address] Start: 28-25-9968Ncjemxr encounter procedureMatthew C Petznick Work Phone: [phone]-Qyqsrz For OrthopedicsFormerly [facility] [place] Work Phone: Start: 46-21-4282uadktzsscvRB RODNEY LAMB Facility:117[address]Pwzwb: 02-87-5516TADDLWqgikpn C Petznick Work Phone: [phone]-PqpamusjantytvwrAurora Hospital DHI Work Phone: Start: 22-44-3952ICBSFSsgjmjl C Petznick Work Phone: [phone]-YrnggsarbetmflizM[facility]field [facility] Work Phone: Start: 81-12-0266Hdhfpf outpatient visit 25 minutes Anibal C Petznick Work Phone: [phone]-EtadrKaiser Foundation Hospital-[facility] Work Phone: Start: 44-61-0958BDJUCOZ, Provider: Rodney Lamb, Status: Pen, Time: 2:30 PMMatthew C Petznick Work Phone: [phone]-Qvpdks For Orthopedics-[address] [place] Work Phone: Start: 69-95-4357Vmebvvj encounter procedureMatthew C Petznick Work Phone: [phone]-Gcnxnr For OrthopedicsFormerly [facility] [place] Work Phone: Start: 54-63-6262YRHDQLstplmp C Petznick Work Phone: [phone]-Arxyrq For Orthopedics-[place] [address] [place] Work Phone: Start: 53-75-7712PLDLGMveudwc C Petznick Work Phone: [phone]-NozmhyorvvlinicwAurora Hospital DHI Work Phone: Start: 57-89-7975HJHFFWkfiprs C Petznick Work Phone: [phone]-Whrujzxyhxcybqaz-[facility] DHI Work Phone: Start: 88-19-3748Rmiei UpdateMatthew C Petznick Work Phone: [phone]-JetiqfkwivqgAurora Hospital 2500 DO Work Phone: Start: 33-02-7065Ukrbo UpdateMatthew C Petznick Work Phone: [phone]-TaayoMoSo-[place] Work Phone: Start: 05-74-5703Zhnqb UpdateMatthew C Petznick Work Phone: [phone]-Alzkm [facility] Work Phone: Start: 49-65-4294Sdkqzm consultation new/estab patient 60 minMatthew C Petznick Work Phone: [phone]-Zpqau [facility] Work Phone: Start: 46-81-7900Okwzgsd encounter procedureMatthew C Petznick Work Phone: [phone]-NfeqkxmcvmanMurray County Medical Center 2500 DO Work Phone: Start: 05-14-2021 End: 88-12-3297zfmrdmxjmxIrzlz Hykes Other [employer] Other Start: 13-26-0601Yeshgbgly encounterDavid HykesFPG GastroenterologyStart: 05-12-2021 End: 54-48-0842ehhhjupciiUjghb Hykes Other [employer] Other Start: 14-00-9793Ekansfthr encounterDavid HykesFPG GastroenterologyStart: 23-33-5974Kzmggsx encounter procedureMatthew C Petznick Work Phone: [phone]-Gjrwjv For Orthopedics-[place] Work Phone: Start: 63-92-3447Fykrttv encounter procedureAnibal Henri Juan Work Phone: [phone]-Psztas For [facility]icsL[facility] Work Phone: Start: 53-98-7522Hzhiyzz encounter procedureMarshallUT Health Tyler For OrthopedicsL[facility] Work Phone: Start: 43-33-7515Eueqogg encounter procedureMarshallUT Health Tyler For OrthopedicsL[facility] Work Phone: Start: 87-41-0649Lnadvgu encounter procedureMarshallUT Health Tyler For [facility] Work Phone: Start: 55-64-3853Jjbrbin encounter procedureTnyoletteLegent Orthopedic Hospital OrthopedicsL[facility] Work Phone: Start: 83-32-7069Sdffhgu encounter procedureLeConte [facility] OrthopedicsL[facility] Work Phone: Start: 50-45-9764Iyzkbjf encounter procedureTnyoletteUT Health Tyler For OrthopedicsL[facility] Work Phone: Start: 01-30-2020 End: 81-30-0309Ziwpzeffhz hospital visit by physicianEvans Tellez 1 Work Phone: RadiologyComment on above:Bilateral foot pain [M79.671, M79.672]Start: 67-04-2737Dofucvx encounter procedureChuyStephens Memorial Hospital For OrthopedicsFormerly [facility] [place] Work Phone: Start: 11-14-4790Pxqjatw encounter procedureMarshallUT Health Tyler For OrthopedicsL[facility] Work Phone: Start: 68-64-8305Ifnxfmj encounter procedureMarshallUT Health Tyler For [facility]alsL[facility] Work Phone: Start: 62-42-2372Ctgzgto encounter procedureWiRiverview Regional Medical Center OrthopedicsL[facility] Work Phone: Start: 23-90-2353Ozzteix encounter procedureRodney [facility] OrthopedicsL[facility] Work Phone: Start: 11-15-2019 End: 12-80-8486Diznfvluij hospital visit by Kesha Lamb Work Phone: MLOZ 2N NeuroComment on above:Status post total left knee replacement (Primary Dx)Start: 11-09-2019 End: 46-10-5988Hagdgijyxn hospital visit by physicianSuni Leone Rm 1[facility] Pre- Admission TestingStart: 98-98-2856Ouwwqvk encounter procedureRodney Lamb [facility] For OrthopedicsFormerly [facility] [place] Work Phone: Start: 88-80-1972Llglkrb encounter procedureChuyChildren's Medical Center [facility] OrthopedicsFormerly [facility] [place] Work Phone: Start: 07-83-4353Wzfyaae encounter procedureRodney [facility] OrthopedicsFormerly [facility] [place] Work Phone: Start: 07-04-5024Yqjrpij encounter procedureRodney [facility] Work Phone: Start: 14-97-0413Herflzb encounter procedureAdventHealth Avista OrthopedicsFormerly [facility] [place] Work Phone: Start: 95-78-1756Abflxwn encounter procedureMaGoddard Memorial Hospital For [facility]-[place] Work Phone: Start: 21-97-4726Wtrzwnm encounter procedureMaGoddard Memorial Hospital For [facility]-[place] Work Phone: Start: 58-12-3507Tqbesyi encounter procedureMaGoddard Memorial Hospital For OrthopedicsL[facility] Work Phone: Start: 60-06-1683Uufewmu encounter procedureRODNEY Palm:8Start: 69-38-9276Hgfbtio encounter procedureMATTHEW PETZNICK Facility:8Start: 02-79-2201Yrixgav encounter procedureRODNEY LAMB Facility:8Start: 56-92-2881Nsdgrij encounter procedureMARSHALLLIZABETH LAMB Facility:8Start: 31-30-8364Nlnoblv encounter procedureSERENITYRAQUEL LAMB Facility:[facility] SYSTEMSStart: 61-79-2254Hbycvwx encounter procedure RODNEY LAMBFacility:8 Procedures DateProcedureProcedure DetailPerforming ClinicianStart: 01-12-4980Caqxf pressure outside of normal parameters - follow-up documentedSamuel Berry MD Work Phone: Start: 34-39-9679OGI documented as above normal parameters - follow-up documentedSamuel Berry MD Work Phone: Start: 95-56-6343Zkmzeqv tobacco non-user cad cap copd pv Maria Del Carmen Berry MD Work Phone: start: 31-73-9740Vieehztpfysis of current medications Samuel Berry MD Work Phone: Start: 92-10-5339Whel assessment documented as positive - no follow-up/reason not givenSamuel Berry MD Work Phone: start: 99-73-9622Zshnw pressure within normal parameters - no follow-up requiredSamuel Berry MD Work Phone: start: 19-64-6018Sdfx contact that fx existed & pt tsted/txd opAmirza Berry MD Work Phone: Start: 56-24-5562PEP documented as above normal parameters - follow-up documentedSamuel Berry MD Work Phone: start: 34-18-7563Yhegdqd tobacco non-user cad cap copd pv Maria Del Carmen Berry MD Work Phone: Start: 37-15-7558Wmkkfsgddqqpr of current medications Samuel Berry MD Work Phone: start: 97-07-1207Cowc assessment documented as positive - no follow-up/reason not givenSamuel Berry MD Work Phone: Start: 86-01-7565Uudlhzlabp examination knee 3 views Rodney Lamb MD Work Phone: Start: 93-92-9920BW KNEE LEFT 3 VIEWSGeneric External Data ProviderStart: 47-83-9177Mxbuc spine cervical 2 or 3 viewsPhibhakti Mcgowan MD Work Phone: Start: 18-64-0739TT CERVICAL 3V AP/LAT/ODONGeneric External Data ProviderStart: 22-34-8977IA LUMBAR 3V AP/LAT/L5-B6Udwyjvk External Data ProviderStart: 91-59-8426NZF THYROID PEROXIDASE ANTIBODY BLOODGeneric External Data ProviderStart: 98-08-2921LGJ CERVICAL SPINE WO IVCONGeneric External Data ProviderStart: 22-19-8971Trv spinal canal cervical w/o contrast Danyell No MD Work Phone: Start: 90-72-8729LvwqifxgnpgphpjixgmodlenjkFimgsft Petznick DO Work Phone: Start: 04-25-2024 End: 20-02-7751ZdodgegonloVuipqkd Petznick DO Work Phone: Start: 97-68-2859ZIP CBC W AUTO DIFF BLDGeneric External Data ProviderStart: 95-55-0121Jbgamjs bacterial quanttative colony count urineMatthew C Petznick DO Work Phone: Start: 91-66-1544GKKUS CULTURE CLEAN CATCH REFLEX Anibal C Petznick DO Work Phone: Start: 57-87-3980Iutjo dip stick/tablet rgnt non-auto w/o micrscpMatthew C Petznick DO Work Phone: Start: 25-72-9502XtwgklseaptPrltppj Petznick DO Work Phone: Start: 96-23-4927PU of abdomen with contrastDO Anibal Morochopablo Work Phone: Start: 52-83-6793AG KNEE RIGHT 3 VIEWSSARABJIT PHILLIPS Start: 82-11-7628SH KNEE RIGHT 3 VIEWSGeneric External Data ProviderStart: 38-84-0900JP CARDIAC CALCIUM SCORINGGeneric External Data ProviderStart: 91-88-9423Dipruedojlriea aspir&/inj small jt/bursa w/o Marie Malloy MD Work Phone: Start: 15-62-0610KWUPQQ UP IN CARDIOLOGYSARABJIT PHILLIPS Start: 41-55-6174Sbqmi hand minimum 3 viewsRobert Dayana No MD Work Phone: Start: 31-95-8848RLRKMV OR EVENT CARDIAC MONITORSARABJIT PHILLIPSStart: 75-62-8553Poja tthrc r-t 2d w/wom-mode compl spec&colr dGguero Becerra MD Work Phone: Start: 28-08-1795Xxiqfe X-rayDO Anibal Juan Work Phone: Start: 96-93-5632H-ray of lumbar spine, two or three viewsDO Anibal Juan Work Phone: Start: 90-95-3534UCV antigen levelDO Anibal Juan Work Phone: Start: 23-37-7449JYWEU METABOLIC PANEL W/ REFLEX TO MG FOR LOW KAdjondi Tricia Cerna PERMANENT WAVER - ARTICULATION OFFICER Work Phone: Start: 86-11-0583Gxxjb count complete automatedAdjondhina Cerna PERMANENT WAVER - ARTICULATION OFFICER Work Phone: Start: 72-29-1767Caekqnrzip examination knee 1/2 views Adjondhina Cerna PERMANENT WAVER - ARTICULATION OFFICER Work Phone: Start: 12-24-2021 End: 56-34-2594Qxxsze kne condyle&platu medial&lat compartmentsWiraquel Lamb MD Work Phone: Start: 96-78-2895Xormgsmt screenMloz 3Start: 12-17-2021 End: 14-49-4689Movwe s aureus methicillin resist amp probe tqWiraquel Lamb MD Work Phone: Start: 12-17-2021 End: 80-42-0359Uydaiarmsfwbk metabolic panelRodney Lamb MD Work Phone: Start: 57-77-9778Krqxc typing serologic aboRodney Lamb MD Work Phone: Start: 30-23-7720Bzsbk dip stick/tablet rgnt auto w/o microscopyRodney Lamb MD Work Phone: Start: 48-38-6761Ldk routine ecg w/least 12 lds trcg only w/o i&rWilliam Jos Lamb MD Work Phone: Start: 92-08-5128Aiucs 1996 panel - Serum or PlasmaXr Hosp Work Phone: Start: 66-17-7343DhrlhgpmlarSkl 2Start: 01-30-2020 Radex foot complete minimum 3 viewsJohn Zenaida DPM Work Phone: Start: 52-43-1094EAQNO METABOLIC PANEL W/ REFLEX TO MG FOR LOW KWilliam Jos Lamb Work Phone: Start: 08-50-9291Sgzuf count complete automatedRodney Lamb Work Phone: Start: 06-77-6749Dlbtbdaxnf examination knee 1/2 views Rodney Lamb Work Phone: Start: 98-38-8963HOKVR-19 AMBULATORYPatricia K ReubenStart: 98-03-9926Cgtoimvw screenMloz 1Start: 30-03-2078Wmpcuelebt microscopic onlyPatricia K ThompsonStart: 98-29-1249Cuawg dip stick/tablet rgnt auto w/o microscopyPatricia K ThompsonStart: 72-22-6824Nxgmg metabolic panel calcium totalPatricia K ThompsonStart: 32-73-9507Xhrloeyvfqm timePatricia K ThompsonStart: 35-24-1831Aksei count complete automatedPatricia K ThompsonStart: 60-34-4996Plvmm typing serologic aboPatricia Don ThompsonStart: 79-44-0156Lyz routine ecg w/least 12 lds i&r onlySerenitylllizabeth Jos Lamb Work Phone: Start: 08-26-9234Gza routine ecg w/least 12 lds w/i&r Erinn Don ThompsonStart: 20-08-1331Ieyl Knee Complete 4 or more ViewMatthew PetznickStart: 18-75-4087IxcpkfokonrDrkfqdt Petznick DO Work Phone: Start: 62-02-5752XctujhmmysxDsfnev Perhala MD Work Phone: Start: 13-90-1394Ixiiofkjphw observation [Identifier] in Cervix by Cyto stainEly 3Arthroplasty of kneeMatthew C Petznick Work Phone: Decompression of median nerveMatthew C Petznick Work Phone: Implantation of joint prosthesisMatthew C Petznick Work Phone: Operative procedure on spinal structureMatthew C Petznick Work Phone: Plan of Treatment DateCare ActivityDetailAuthorStart: 16-50-3855CLD High Risk: (Elderly (60+) or Population) (1 - 1-dose 75+ series)RSV High Risk: (Elderly (60+) or Population) (1 - 1-dose 75+ series)[facility] Start: 34-03-1331Zmiihnwoh for malignant neoplasm of colonNOMS HealthcareStart: 46-52-9768Zyleksfbb for malignant neoplasm of colonNOMS HealthcareStart: 64-54-5769Rswxrdds ScreeningDiabetes ScreeningLocust Hill ClinicStart: 05-23-2027 Diabetes ScreeningDiabetes ScreeningLocust Hill ClinicStart: 09-88-6636Gnbwardk ScreeningDiabetes ScreeningLocust Hill ClinicStart: 78-86-9767Ktamroxy Screening Diabetes ScreeningGuernsey Memorial Hospitaltart: 21-52-9947Upeubetb ScreeningDiabetes ScreeningGuernsey Memorial Hospitaltart: 21-15-8407Ttqwr 1996 panel - Serum or Plasma Lipid ScreeningGuernsey Memorial Hospitaltart: 63-72-2821Amgxl panelJoint Township District Memorial [facility] Start: 53-96-4594FBQBG SCREENLIPID SCREENGuernsey Memorial Hospitaltart: 05-26-2026 Diabetes ScreeningDiabetes ScreeningGuernsey Memorial Hospitaltart: 63-59-1301Qczvajtr ScreeningDiabetes ScreeningGuernsey Memorial Hospitaltart: 46-82-2406BBYECAKK SCREEN DIABETES SCREENGuernsey Memorial Hospitaltart: 19-39-0484Didymiml mellitus screening Diabetes ScreeningPaulding County HospitalStart: 74-31-8591EL Controlled (<130/80)BP Controlled (<130/80)[facility] Hospitaltart: 44-92-3499KX Controlled (<130/80)BP Controlled (<130/80)[facility] Memorial Hospitaltart: 04-09-2025 End: 94-42-8418Oelwbqv encounter yvjefsoae00/06/2026 10:15 AM EST Office Visit [facility] [address] [address] Rodney Lamb MD [address] [facility], [address] [place] [address] [phone] [place] Voice Centertart: 03-04-2025 End: 884928-ysostwisbveufu D3 [Mass/volume] in Serum or PlasmaVITAMIN D 25 HYDROXY Lab Routine Malaise and fatigue Vitamin D deficiency Abnormal weight gain Expected: 03/04/2025, Expires: 06/03/2025leveland ClinicComment on above: Expected: 03/04/2025, Expires: 06/03/2025Start: 03-04-2025 End: 81-61-0415Jgochct [Mass/volume] in Serum or PlasmaCALCIUM, TOTAL Lab Routine Malaise and fatigue Vitamin D deficiency Abnormal weight gain Expected: 03/04/2025, Expires: 06/03/2025leveland ClinicComment on above:Expected: 03/04/2025, Expires: 06/03/2025Start: 03-04-2025 End: 35-65-8023Xytwysgwym.intact [Mass/volume] in Serum or PlasmaPTH INTACT Lab Routine Malaise and fatigue Vitamin D deficiency Abnormal weight gain Expected: 03/04/2025, Expires: 06/03/2025leveland ClinicComment on above:Expected: 03/04/2025, Expires: 06/03/2025Start: 02-13-2025 End: 99-35-0479rijhzzaolt64/12/2025 2:30 PM EST Treatment [facility] [address] [place] [phone] Nico Westbrook, RUBBER MILL OPERATOR [facility] TherapyStart: 02-05-2025 End: 27-62-3942gpnevkvnjn36/04/2025 10:30 AM EST Treatment [facility] [address] [place] [address] Nico Westbrook, RUBBER MILL OPERATOR [facility] TherapyStart: 01-31-2025 End: 29-37-5108tgjqecxyhy86/30/2025 10:00 AM EDT Treatment [facility] [address] [place] [address] Nico Westbrook, RUBBER MILL OPERATOR [facility] TherapyStart: 01-30-2025 End: 78-53-8323juloanapwm46/29/2025 3:00 PM EDT Treatment [facility] [address] [place] [phone] Nico Westbrook, RUBBER MILL OPERATOR [facility] TherapyStart: 01-29-2025 End: 41-68-3648wvyrhzqvrr63/28/2025 10:00 AM EDT Treatment [facility] [address] [place] [address] Rex Mercado, PT [address] [place] [address] [facility] TherapyStart: 01-24-2025 End: 25-04-0909vtmomhqzgv17/23/2025 10:00 AM EDT Treatment [facility] [address] [place] [address] Nico Westbrook, ERIC [facility] TherapyStart: 01-22-2025 End: 78-45-1861tgjywufiaa26/21/2025 1:00 PM EDT Treatment [facility] [address] [place] [phone] Nico Westbrook, RUBBER MILL OPERATOR [facility] TherapyStart: 01-17-2025 End: 70-35-0363mjkgblhcet21/16/2025 10:30 AM EDT Treatment [facility] [address] [place] [address] Nico Westbrook PTA [facility] TherapyStart: 01-15-2025 End: 13-95-9982flyconhoye65/14/2025 9:00 AM EDT Treatment [facility] [address] [place] [phone] Rex Mercado, PT [address] [place] [address] [facility]Day[facility] TherapyStart: 01-11-2025 End: 61-13-9333okdqfrwojv66/10/2025 9:00 AM EDT Treatment [facility] [address] [place] [phone] Griselda Ortiz, PT [address] [place] [address] [facility]OS[facility]ITALDayana [facility] Physical TherapyStart: 01-10-2025 End: 23-20-6287Bhcozcl encounter hprdoxkdz17/09/2025 8:00 AM EDT Office Visit [address] [place] [address] [place] [address] Yamilet Ramos R [address] [place] [address] ACUPUNCTUREAmherst Maximo Jorge WellnessComment on above:ACUPUNCTUREStart: 01-09-2025 End: 75-89-0127Bcwhwsr encounter bwpukqocq05/08/2025 10:45 AM EDT Office Visit [facility] [address] [place] [phone] Rodney Lamb MD [address] [facility], [address] [place] [address], [place] [address] [place] Voice Centertart: 01-08-2025 End: 22-60-3140vyhqsfhwgm95/07/2025 9:00 AM EDT Treatment [facility] [address] [place] [phone] Nico Westbrook RUBBER MILL OPERATOR [facility] TherapyStart: 01-03-2025 End: 60-43-8353euiczcoqln46/02/2025 9:00 AM EDT Treatment [facility] [address] [place] [phone] Terra Boykin RUBBER MILL OPERATOR [address] [place] [address] [facility] TherapyStart: 01-02-2025 End: 29-01-5591Xvwllya encounter aditjckfc99/01/2025 4:20 PM EDT Office Visit Rheumatology [address] [place] [address] [place] [address] [facility] [place] [address] RARheumatologyComment on above:RAStart: 01-01-2025 End: 25-48-1725oxhsqokeqb43/30/2025 9:00 AM EDT Treatment [facility] [address] [place] [phone] Griselda Ortiz, PT [address] [place] [address] [facility] TherapyStart: 12-28-2024 End: 36-02-9119nwmhfeiavb01/26/2025 11:30 AM EDT Treatment [facility] [address] [place] [phone] Griselda Ortiz, PT [address] [place] [address] [facility] Physical TherapyStart: 47-53-1809Onoskiziv for malignant neoplasm of breastEllett Memorial HospitalStart: 12-26-2024 End: 55-75-2528rgtunzhxei55/24/2025 11:00 AM EDT Treatment [facility]ITAL[facility] [address] [place] [address] Griselda Ortiz, PT [address] [place] [address] [facility]O [facility] TherapyStart: 12-19-2024 End: 90-36-8524Tstdrve encounter zseqncmef25/17/2025 11:20 AM EDT Office Visit Rheumatology [address] [place] [address] [place] [address] [facility] [place] [address] Return in about 3 months (around 12/11/2024).Rheumatology Comment on above:Return in about 3 months (around 12/11/2024).Start: 69-06-9004Fcn bone density study 1/> sites axial skelCRYSTPentaho INC. Work Phone: Start: 36-63-8374Xsi spinal canal lumbar w/o contrast materialCRMoneyDesktop INC. Work Phone: Start: 25-48-2452Hilko spine cervical 4 or 5 views [employer] Work Phone: Start: 11-84-0409VS Lumbar spine ViewsMoneyDesktop INC[employer] Work Phone: Start: 12-17-2024 End: 66-65-7188uphcakvzwnRZTI [facility] Physical TherapyComment on above:Arrived Start: 12-14-2024 End: 21-96-6210ejydftypfs69/12/2025 12:00 PM EDT Evaluation [facility] [address] [place] [phone] Griselda Ortiz, PT [address] [place], [place] [address] [facility] HOSPITALDayana [place] Physical TherapyStart: 12-07-2024 End: 83-09-6492eubcqmsjzb38/05/2025 11:00 AM EDT Evaluation [facility] [address] [place] [phone] Griselda Ortiz, PT [address] [place] [address] ArrivedELISEO Ritchie Physical TherapyComment on above:ArrivedStart: 12-03-2024 COVID-19 Vaccine ( season)COVID-19 Vaccine ( season) [facility]Start: 84-59-3113Nldknjaif vaccinationGuernsey Memorial Hospitaltart: 11-27-2024 End: 47-45-0868Yavlobb encounter jskffomso56/26/2025 11:00 AM EDT Office Visit Pain Management [address] [place] [address] Josh Mcgowan MD [address] [place] [address] Degenerative disc disease, cervical [M50.30]Pain ManagementComment on above:Degenerative disc disease, cervical [M50.30]Start: 10-23-2024 End: 59-88-0188Dgpwoyy encounter rqnjvaqzz27/22/2025 8:30 AM EDT Office Visit Pain Management [address] [place] [address] Josh Mcgowan MD [address] [place] [address] Degenerative disc disease, cervical [M50.30]Pain ManagementComment on above:Degenerative disc disease, cervical [M50.30]Start: 09-24-2024 End: 21-67-8318Xifwkjj glucose [Mass/volume] in Serum or PlasmaGLUCOSE, FASTING Lab Routine Malaise and fatigue Vitamin D deficiency Abnormal weight gain Expected: 09/24/2024, Expires: 12/24/2024[facility] ClinicComment on above: Expected: 09/24/2024, Expires: 12/24/2024Start: 09-24-2024 End: 78-74-3840Tupwthp [Units/volume] in Serum or PlasmaINSULIN, TOTAL, SERUM Lab Routine Malaise and fatigue Vitamin D deficiency Abnormal weight gain Expe cted: 09/24/2024, Expires: 12/24/2024[facility] ClinicComment on above:Expected: 09/24/2024, Expires: 12/24/2024Start: 09-24-2024 End: 11-08-0164VGNBCOH ABS SSA/SSBSJOGREN ABS SSA/SSB Lab Routine Malaise and fatigue Vitamin D deficiency Abnormal weight gain Expected: 09/24/2024, Expires: 12/24/2024[facility] ClinicComment on above:Expected: 09/24/2024, Expires: 12/24/2024Start: 09-24-2024 End: 88-34-1413MSLRYSF PEROXIDASE ANTIBODYTHYROID PEROXIDASE ANTIBODY Lab Routine Malaise and fatigue Vitamin D deficiency Abnormal weight gain Expected: 09/24/2024, Expires: 12/24/2024[facility] Work Phone: Comment on above:Expected: 09/24/2024, Expires: 12/24/2024Start: 09-24-2024 End: 22-92-8415Xjfpmys encounter lwrfbhdgu67/23/2025 11:50 AM EDT Office Visit Endocrinology [address] [facility] [place] [address] Keyshawn Arellano MD [address] [facility] [place] [address] thyroid nodulesEndocrinologyComment on above:thyroid nodules Start: 09-18-2024 End: 52-25-8953Ofgbhfy encounter fkzrzorau69/17/2025 7:20 AM EDT Appointment Radiology [address] [place] [address] 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 [address] Return in about 3 months (around 09/07/2024)RheumatologyComment on above:Return in about 3 months (around 09/07/2024)Start: 08-29-2024 End: 42-77-5967Bthdcry encounter rkvzeaheb98/28/2025 9:00 AM EDT Office Visit [facility] S[facility] FM [address] [facility] [address] [place] [phone] Anibal Juan DO [address] [place] [address] ArrivedNOMS SWS FM 230Comment on above:ArrivedStart: 92-12-0544LtmjkjchqMemorial Health Systemtart: 17-38-5695XP Controlled (<130/80)BP Controlled (<130/80)[facility] Hospitaltart: 06-20-2024 End: 97-27-3130Zhznudv encounter wbnpvseoz97/19/2025 9:30 AM EDT Office Visit [facility] EV[facility]IST[facility] ORTHO [address] [place] [phone] Zoey Gonzalez MD [address] [place] [address] NOMDayana LOERA ORTHOStart: 06-07-2024 End: 23-68-1925Xzcoxrs encounter wiectmxgw24/06/2025 11:40 AM EST Office Visit Rheumatology [address] [facility] [place] [address] [place] [address] [facility] [place] [address] Return in about 3 months (around 06/06/2024).Rheumatology Comment on above:Return in about 3 months (around 06/06/2024).Start: 05-18-2024 End: 94-76-1329Fduaprb encounter /14/2025 8:30 AM EST [facility] [address] [place] [phone] Jason Kimble MD [address] [facility] [address] [place] [address] NOMS ENT MONAtart: 05-14-2024 End: 82-71-9531Igahcjt encounter xzvuxjraf72/10/2025 8:30 AM EST Office Visit [facility] NB AUD [address] [place] [address] Vandana Stallworth, AUD [address] [place] [address] NOMS NB AUDStart: 05-07-2024 End: 76-18-5557Yvzjfda encounter /03/2025 3:45 PM EST Office Visit [facility] [address] [place] [address] [place] [phone] Vandana Juan, [address] [place] [address] ArrivedNOMS SWS FM 230Comment on above:ArrivedStart: 87-51-5294OpupgcgoqMemorial Health Systemtart: 04-17-2024 End: 13-29-9200Uvwmjly encounter bdcbyygft09/14/2025 11:00 AM EST Office Visit [facility] [address] [place] [address] [place] [address] Anibal Juan, DO [address] [place], [place] [phone] ArrivedNOMS SWS FM 230Comment on above:ArrivedStart: 04-16-2024 End: 30-84-1378Sjgpbgz encounter ggdqfufeh89/13/2025 9:45 AM EST Office Visit [facility] [address] [facility] [address] [place] [address] Rena Becerra MD [address] [facility] 130 [place], [place] [phone] [facility] HospitalStart: 03-09-2024 End: 32-28-1558Kirwgjk encounter uzhqboshr58/06/2024 2:00 PM EST Office Visit [facility] RAMA RITCHIE [address] [facility] [address] [place] [address] Jason Kimble MD [address] [facility] 130 [place] [address] NOMS RAMA DUNNtart: 03-08-2024 End: 68-93-6732WGIPV TB SCREENOhiohealth Work Phone: Comment on above:Expected: 03/08/2024 (Approximate), Expires: 06/07/2024Start: 03-08-2024 End: 21-31-7076Wprrahoss B virus surface Ag [Presence] in SerumJoint Township District Memorial Hospital Comment on above:Expected: 03/08/2024, Expires: 06/07/2024Start: 03-07-2024 End: 15-27-3983Espzinz encounter lwutjnjtu20/04/2024 10:00 AM EST Office Visit [facility] [address] [place] [address] [place] [address] Anibal Juan, DO [address] [place] [address] ArrivedNOMS [facility] FM 230Comment on above:ArrivedStart: 02-27-2024 End: 38-83-5075Soxrlnw encounter whhxqlcno35/25/2024 9:40 AM EST Office Visit Rheumatology [address] [place] [address] [place] [address] [facility] [place] [address] 2 month follow upRheumatologyComment on above:2 month follow upStart: 02-01-2024 End: 39-31-9385Oseuxlj encounter zqffirrol31/30/2024 10:45 AM EDT Office Visit [facility] [address] [place] [address] [place] [address] Anibal Juan, [address] [place] [address] ArrivedNOMS [facility] FM 230Comment on above:ArrivedStart: 74-25-4907EHDGDTBT SCREENDIABETES SCREENGuernsey Memorial Hospitaltart: 12-26-2023 End: 65-58-6236Bozcgxr encounter oxpiyuauk99/23/2024 11:20 AM EDT Office Visit Rheumatology [address] [place] [address] [place] [address] [facility] [place] [address] Return in about 8 weeks (around 12/19/2023).Rheumatology Comment on above:Return in about 8 weeks (around 12/19/2023).Start: 12-04-2023 COVID-19 Vaccine ( season)COVID-19 Vaccine ( season) [facility]Start: 17-50-6408Gqczdfljo vaccinationGuernsey Memorial Hospitaltart: 53-80-0875Uyfcthcoe for osteoporosisBone Density ScanUnParkview Health Montpelier HospitalStart: 10-24-2023 End: 58-38-7666Vwindbt encounter snoohmqgy59/22/2024 11:20 AM EDT Office Visit Rheumatology [address] [place] [address] [place] [address] [facility] [place] [address] Follow up in 10 weeksRheumatologyComment on above:Follow up in 10 weeksStart: 08-18-2023 End: 03-35-2815Knrfoll encounter sumbeuqup83/16/2024 9:45 AM EDT Office Visit [facility] 7[address] [facility] 250 [place] [address] Rena Becerra MD [address] [facility] 300 [place] [address] [facility] HospitalStart: 07-13-2023 End: 37-60-7710Tgwvggt encounter lydkqhtvk77/10/2024 10:30 AM EDT Office Visit [facility] [address] [place] [address] Zoey Gonzalez MD [address] [facility] [address], [place] [address] [facility] ORTHOStart: 06-03-2023 End: 03-11-8758Jnnxsfm encounter sjzuuucqy60/01/2024 8:45 AM EST Office Visit [facility] [address] [facility] [address] [place] [address] Rodney Lamb MD [address] [facility], [address] [place] [address] [facility] Centertart: 05-26-2023 End: 30-85-1615OZNOF TB SCREENOhiohealth Work Phone: comment on above:Expected: 05/26/2023 (Approximate), Expires: 08/25/2023Start: 05-26-2023 End: 79-27-6813Qrknkyibe B virus surface Ag [Presence] in SerumOhiohealth Work Phone: comment on above:Expected: 05/26/2023, Expires: 08/25/2023Start: 67-98-4899Wqsplcxsbq Health ScreeningBehavioral Health ScreeningGuernsey Memorial Hospitaltart: 99-06-8311Qxsonsuvtb AssessmentDepression AssessmentGuernsey Memorial Hospitaltart: 48-25-8401jzErfwagohuf Health Screening zzBehavioral Health ScreeningGuernsey Memorial Hospitaltart: 03-03-2023 End: 57-82-1719Ioncchecqsew / ancillary services zfocqyatnf73/30/2023 9:00 AM EST Ancillary Procedure [facility] [address] [place] [address] KQAurora Medical Center– Burlingtontart: 02-17-2023 End: 14-24-7712OC for calcium scoring WO contrast and CTA W contrast IV Heart and coronary arteriesCT cardiac scoring wo IV contrast Imaging Routine Palpitations Shortness of breath Expected: 02/17/2023, Expires: 02/18/2024[facility] Service Area Work Phone: Comment on above:Expected: 02/17/2023, Expires: 02/18/2024Start: 02-17-2023 End: 45-43-8391Zhglcuj encounter /16/2023 11:45 AM EST Office Visit [address] [phone] Rena Becerra MD 254 [facility] 300 [place] [address] [facility] HospitalStart: 01-31-2023 End: 13-21-4324Mgbpxrsa Qsthgcu9801/31/2023 9:00 AM EDT Clinical Support [address] [phone] [facility] Start: 17-22-8877MLI, Provider: Rena Becerra, Status: Pen, Time: 3:15 PMFUV, Provider: Rena Becerra, Status: Pen, Time: 3:15 PMMP-[facility]-[place] [address] DO Work Phone: Start: 77-15-5556AXZX, Provider: [place] LALAI ULTRASOUND 01,[id number], Status: Pen, Time: 7:45 AMECHO, Provider: [place] L HHVI ULTRASOUND 01,[id number], Status: Pen, Time: 7:45 AMMP-[facility]- [place] [address] DO Work Phone: Start: 93-81-6861UNP, Provider: Rodney Lamb, Status: Pen, Time: 10:30 AMFUV, Provider: Rodney Lamb, Status: Pen, Time: 10:30 AMMPCincinnati Va Medical Center OrthopedicsG[facility] DO Work Phone: Start: 61-28-8576IHWOLL NUC, Provider: [place] L HHVI NUCLEAR 01,[id number], Status: Pen, Time: 8:30 AMSTRESS NUC, Provider: [place] L HHVI NUCLEAR 01,[id number], Status: Pen, Time: 8:30 AMMP-[facility]- [place] [address] DO Work Phone: Start: 34-62-3699JEVPUX 48, Provider: GUIDO HORN [employer]KER 1,[id number], Status: Pen, Time: 3:00 PMHOLTER 48, Provider: GUIDO HORN [employer] CIG[employer] MAKER 1,[id number], Status: Pen, Time: 3:00 PMMP-[facility]-[place] [address] DO Work Phone: Start: 58-09-1462PPUPNB MANDIE, Provider: J[place] L HHVI NUCLEAR 01,[id number], Status: Pen, Time: 2:30 PMSTRESS MANDIE, Provider: [place] L HHVI NUCLEAR 01,[id number], Status: Pen, Time: 2:30 PMMP-[facility]- [place] [address] DO Work Phone: Start: 54-91-5885Qiixlrhro vaccinationJoint Township District Memorial Hospital Start: 03-40-8121Hjsrwqgdz for osteoporosisBone Density ScanUniversity Hospitals of ClevelandStart: 10-14-2022 End: 07-04-9881OXM W Auto Differential panel - BloodCBC + DIFF Lab Routine Rheumatoid arthritis involving multiple sites with positive rheumatoid factor (HCC) Expected: 10/14/2022, Expires: 12/14/2022[facility] Work Phone: Comment on above:Expected: 10/14/2022, Expires: 12/14/2022Start: 10-14-2022 End: 61-98-4962Dinovhyyixknb metabolic 2000 panel - Serum or PlasmaCOMP METABOLIC PANEL Lab Routine Rheumatoid arthritis involving multiple sites with positive rheumatoid factor (HCC) Expected: 10/14/2022, Expires: 12/14/2022 [facility] Work Phone: Comment on above:Expected: 10/14/2022, Expires: 12/14/2022Start: 06-28-2022 End: 32-90-3497Mzgihjt aminotransferase [Enzymatic activity/volume] in Serum or PlasmaALT/SGPT Lab Routine Rheumatoid arthritis involving multiple sites with positive rheumatoid factor (HCC) High risk medication use Expected: 06/28/2022, Expires: 08/28/2022[facility] Work Phone: comment on above:Expected: 06/28/2022, Expires: 08/28/2022Start: 06-28-2022 End: 20-40-8041Prpbqyhmu aminotransferase [Enzymatic activity/volume] in Serum or PlasmaAST/SGOT BLD Lab Routine Rheumatoid arthritis involving multiple sites with positive rheumatoid factor (HCC) High risk medication use Expected: 06/28/2022, Expires: 08/28/2022[facility] Work Phone: comrjxn on above:Expected: 06/28/2022, Expires: 08/28/2022Start: 06-28-2022 End: 12-61-0189CIK W Auto Differential panel - BloodCBC + DIFF Lab Routine Rheumatoid arthritis involving multiple sites with positive rheumatoid factor (HCC) High risk medication use Expected: 06/28/2022, Expires: 08/28/2022 [facility] Work Phone: comfydu on above:Expected: 06/28/2022, Expires: 08/28/2022Start: 06-28-2022 End: 13-17-3987ARQGAMTKXX BLDCREATININE BLD Lab Routine Rheumatoid arthritis involving multiple sites with positive rheumatoid factor (HCC) High risk medication use Expected: 06/28/2022, Expires: 08/28/2022[facility] Work Phone: comqnau on above:Expected: 06/28/2022, Expires: 08/28/2022Start: 06-28-2022 End: 77-47-0356Kvhhghgxiwc sedimentation rateSED RATE WESTERGREN Lab Routine Rheumatoid arthritis involving multiple sites with positive rheumatoid factor (HCC) High risk medication use Expected: 06/28/2022, Expires: 08/28/2022 [facility] Work Phone: comment on above:Expected: 06/28/2022, Expires: 08/28/2022Start: 52-11-7677XWH, Provider: Rodney Lamb, Status: Pen, Time: 9:30 AMFUV, Provider: Rodney Lamb, Status: Pen, Time: 9:30 AMNov[facility] [employer] Work Phone: Start: 39-59-2106BDD, Provider: Denise Cardoza, Status: Pen, Time: 11:20 AMFUV, Provider: Denise Cardoza, Status: Pen, Time: 11:20 AM- [place] [employer] Work Phone: Start: 31-83-7179Ckdzwsudk for malignant neoplasm of breastPaulding County HospitalStart: 23-15-9681NRZYHWMAQU ASSESSMENT DEPRESSION ASSESSMENTGuernsey Memorial Hospitaltart: 23-07-1154LOI, Provider: Rodney Lamb, Status: Pen, Time: 9:30 AMFUV, Provider: Rodney Lamb, Status: Pen, Time: 9:30 AM-[place] [employer] Work Phone: Start: 64-28-6654JIC, Provider: Denise Cardoza, Status: Pen, Time: 11:00 AMFUV, Provider: Denise Cardoza, Status: Pen, Time: 11:00 AMK[facility] Work Phone: Start: 49-04-2041GUZ, Provider: Rodney Lamb, Status: Pen, Time: 8:45 AMFUV, Provider: Rodney Lamb, Status: Pen, Time: 8:45 AM-[facility] Work Phone: Start: 37-04-0300XBM, Provider: Syed Zaragoza, Status: Pen, Time: 2:45 PMPOV, Provider: Syed Zaragoza, Status: Pen, Time: 2:45 PMSouthwestern Medical Center – Lawton Work Phone: Start: 82-40-4927MDZTXBYMY, Provider: Rodney Lamb, Status: Pen, Time: 8:00 AMSURGNON, Provider: Rodney Lamb, Status: Pen, Time: 8:00 [facility]: Start: 12-24-2021 End: 57-61-2046Zqoopuzgp to same day surgery wnyqov3312/24/2021 Surgery IP Unit Rodney Lamb MD [address] [place] [address] RIGHT KNEE TOTAL KNEE REPLACEMENT. KE ORComment on above:RIGHT KNEE TOTAL KNEE REPLACEMENT. STRYKERStart: 12-24-2021 End: 68-35-3092Lisseg kne condyle&platu medial&lat compartmentsKNEE TOTAL ARTHROPLASTY Primary osteoarthritis of right knee 12/24/2021 8:45 AM [facility]: 51-09-1877Gxcrbmapts hospital visit by physician 12/24/2021 Hospital Encounter IP Unit Rodney Lamb MD [address] [place] [address] MLOZ ORStart: 03-57-0074OGQFCPFY, Provider: Rodney Lamb, Status: Pen, Time: 8:15 AMPREADMIT, Provider: Rodney Lamb, Status: Pen, Time: 8:15 AMMP-[facility]icsFormer[facility] [place] Work Phone: Start: 71-75-6831ZVYPOIHN36, Provider: Rachel Mcdowell, Status: Pen, Time: 7:00 SFNXVNCXUN04, Provider: Rachel Mcdowell, Status: Pen, Time: 7:00 AM-[facility] [place] Work Phone: Start: 61-78-7361Fkttvquzn vaccinationDOMINION HOSPITALStart: 16-71-0576CBN, Provider: Denise Cardoza, Status: Pen, Time: 11:00 AMFUV, Provider: Denise Cardoza, Status: Pen, Time: 11:00 AMMP-[facility] Work Phone: Start: 58-57-3814MVW, Provider: Denise Cardoza, Status: Pen, Time: 3:20 PMFUV, Provider: Denise Cardoza, Status: Pen, Time: 3:20 PMC[facility]icsS[facility] [address] [place] Work Phone: Start: 09-77-9294YKT, Provider: Denise Cardoza, Status: Pen, Time: 12:10 PMFUV, Provider: Denise Cardoza, Status: Pen, Time: 12:10 PM GH-Nmfgpfovjyim-[facility]ocjavAur[facility] [address] DO Work Phone: Start: 66-65-7710Giijnebm mellitus screeningDiabetes ScreeningMercy Health [facility] Hospital: 20-36-7348HLR patients and/or patients aged 60+ years (1 - 1-dose 60+ series)RSV patients and/or patients aged 60+ years (1 - 1-dose 60+ series)[facility]: 74-16-8515CZI Vaccine (1 - 1-dose 60+ series)RSV Vaccine (1 - 1- dose 60+ series)[facility] Hospitaltart: 00-72-1374TII Vaccine (1 - Risk 60-74 years 1-dose series)RSV Vaccine (1 - Risk 60-74 years 1-dose series)[facility] Hospitaltart: 99-53-8062PTAMF-19 Vaccine (3 - Booster for Moderna series)COVID-19 Vaccine (3 - Booster for Moderna series)SHELBY ARREDONDO [facility] OHIOStart: 93-36-3406JIG, Provider: Yvrose Phillips, Status: Pen, Time: 12:45 PMFUV, Provider: Yvrose Phillips, Status: Pen, Time: 12:45 PM-[facility] Work Phone: Start: 46-57-6594BNQ, Provider: Rodney Lamb, Status: Pen, Time: 10:00 AMFUV, Provider: Rodney Lamb, Status: Pen, Time: 10:00 AM[facility] Work Phone: Start: 48-52-6855Accynoeplk measurementCreatinine [facility], KYStart: 89-41-9020Ojoephstg monitoringPotassium [facility], KYStart: 18-48-4885QAB, Provider: Yvrose Phillips, Status: Pen, Time: 8:45 AMFUV, Provider: Yvrose Phillips, Status: Pen, Time: 8:45 AM-[facility] Work Phone: Start: 93-12-1381PAOUK-19 VACCINE (3 - Moderna risk series)COVID-19 VACCINE (3 - Moderna risk series)[facility] Hospitaltart: 96-85-6835Wcqpqylrq for malignant neoplasm of colonGuernsey Memorial Hospitaltart: 14-17-2119Eskduyrzz vaccinationFlu vaccine (#1)[facility], KYStart: 11-15-2019 End: 71-84-4036Mgjhpmlp EncounterMLOZ ORComment on above:LEFT KNEE TOTAL KNEE REPLACEMENT HONEY SPINAL, NERVE BLOCKStart: 93-50-3198Uwvw Knee Complete 4 or more View-[facility] Work Phone: Start: 74-49-1937Mturnlqex for malignant neoplasm of breastBreast cancer screenBON [facility]: 03-16-7845Rewnlpxst for malignant neoplasm of colonColon cancer screen colonoscopyAstoria, [place] Start: 04-32-2634Rxphbqzm Vaccine (1 of 2)Shingles Vaccine (1 of 2)[facility]: 08-96-9676Pymlff Vaccines (1 of 2)Zoster Vaccines (1 of 2) [facility]: 84-87-9174TEG TESTINGPAP TESTING [facility] Hospitaltart: 07-93-1410Yjxfgupgf for malignant neoplasm of cervixPap TestingGuernsey Memorial Hospitaltart: 18-44-2190AAAFLHCGW (FIT-DNA)COLOGUARD (FIT-DNA) [facility] Hospitaltart: 10-34-2150FumcnqespnwQQQRCWBEBFJPkphmmiho ClinicStart: 77-53-4288NORZRWVRRT CANCER SCREENINGCOLORECTAL CANCER SCREENINGJoint Township District Memorial Hospital Start: 97-42-1635FR COLONOGRAPHYCT COLONOGRAPHYGuernsey Memorial Hospitaltart: 2006 FECAL OCCULT BLOODFECAL OCCULT BLOODGuernsey Memorial Hospitaltart: 23-47-1196Mslllharo for malignant neoplasm of colonBON [facility]: 2006 SIGMOIDOSCOPYSIGMOIDOSCOPYGuernsey Memorial Hospitaltart: 90-39-1707Gcasqltsg for malignant neoplasm of cervixMercy Health [facility]: 07-15-2005 Screening for malignant neoplasm of cervixCervical Cancer ScreeningGuernsey Memorial Hospitaltart: 79-92-4826Fqchy panelBON [facility]: 2001 MammographyCleMorrow County Hospitaltart: 86-60-4436DNK TESTINGHPV TESTINGGuernsey Memorial Hospitaltart: 18-16-9579Lelfqqagk for malignant neoplasm of cervixHPV Testing [facility] Hospitaltart: 19-38-8688LMgQ/Tdap/Td Vaccines (1 - Tdap)DTaP/Tdap/Td Vaccines (1 - Tdap)[facility]: 41-00-7560Alqopajfk for malignant neoplasm of cervixMercy Health Willard Hospital: 39-12-9177JRgV/Tdap/Td vaccine (1 - Tdap)DTaP/Tdap/Td vaccine (1 - Tdap)[facility]: 14-31-0797FTJASCOI VACCINE (1 of 2)SHINGRIX VACCINE (1 of 2)[facility] Hospitaltart: 78-67-3181Gjvxw microalbumin profileGuernsey Memorial Hospitaltart: 07-28-9556Xkrdpw Vaccines (1 of 2)Zoster Vaccines (1 of 2) [facility]: 88-50-7059WWMHPS PCP TEAM CHRONIC DISEASE VISITANNUAL PCP TEAM CHRONIC DISEASE VISITGuernsey Memorial Hospitaltart: 87-53-8085Usoazwc ScreeningAnxiety ScreeningGuernsey Memorial Hospitaltart: 05-52-5223QV CONTROLLED (<130/80)BP CONTROLLED (<130/80)[facility] Hospitaltart: 1979 Depression ScreeningDepression ScreeningGuernsey Memorial Hospitaltart: 1979 Hepatitis C screeningStoneSprings Hospital Center: 24-03-8640DLNENQPPQ C SCREENINGHEPATITIS C SCREENINGFairfield Medical Centerrt: 65-13-9040RUH SCREENINGHIV SCREENINGGuernsey Memorial Hospitaltart: 90-54-0014CHW screeningHIV ScreeningFairfield Medical Centerrt: 28-82-0778UWW screeningHIV screenStoneSprings Hospital Center: 81-92-1317Xtckdqxtzd MonitoringDepression MonitoringDOMINION HOSPITAL Start: 73-40-8439LGbW/Tdap/Td Vaccines (1 - Tdap)DTaP/Tdap/Td Vaccines (1 - Tdap)[facility] HospitalStart: 55-21-5248IBS Vaccines (1 of 1 - Standard series)MMR Vaccines (1 of 1 - Standard series)[facility]: 89-18-0365Tnxazn wellness visitWelcome to Medicare VisitMercy Health Willard Hospital: 77-13-4107Pwbplkyid C screeningHepatitis C [facility], LAStart: 49-19-8474FDP screeningHIV ScreeningMercy Health Willard Hospital: 07-92-8123Aekle panelLipid PanelMercy Health Willard Hospital: 33-78-1598Avnsoehgt for malignant neoplasm of colonUnBarney Children's Medical Center: 04-94-5629Byqjol Adult PhysicalYearly Adult PhysicalPaulding County Hospital25-hydroxyvitamin D3 [Mass/volume] in Serum or PlasmaVitamin D 25 hydroxy Total Lab Routine Gastroesophageal reflux disease, unspecified whether esophagitis present Irritable bowel syndrome, unspecified type Obesity (BMI 35.0-39.9 without comorbidity) Immunocompromised (CMS/HCC) Chronic fatigue syndrome Fibromyalgia Rheumatoid arthritis involving multiple sites with positive rheumatoid factor (CMS/HCC) Vitamin D deficiency Chronic fatigue Ordered: 08/29/2024[facility] HealthcareComment on above:Ordered: 08/29/2024 End: 17-33-0483Mfuvb Metabolic Panel w/ Reflex to MGBasic Metabolic Panel w/ Reflex to MG Lab Routine Daily for 3 Days starting 12/25/2021 until 12/27/2021, 1 [facility] Phone: comment on above:Daily for 3 Days starting 12/25/2021 until 12/27/2021, 1 completedC reactive protein [Mass/volume] in Serum or Plasma C-reactive protein Lab Routine Gastroesophageal reflux disease, unspecified whether esophagitis present Irritable bowel syndrome, unspecified type Obesity (BMI 35.0-39.9 without comorbidity) Immunocompromised (CMS/HCC) Chronic fatigue syndrome Fibromyalgia Rheumatoid arthritis involving multiple sites with positive rheumatoid factor (CMS/HCC) Vitamin D deficiency Chronic fatigue Ordered: 08/29/2024[facility] HealthcareComment on above:Ordered: 08/29/2024 End: 87-59-4932VASDHB Lab Routine Daily for 3 Occurrences starting 11/16/2019 until 11/18/2019, 1 [facility]iacThe News FunnelCOLORADO SPRINGS, KYComment on above:Daily for 3 Occurrences starting 11/16/2019 until 11/18/2019, 1 completed End: 37-97-2233KGT panel - Blood by Automated countCBC Lab Routine Daily for 3 Days starting 12/25/2021 until 12/27/2021, 1 [facility] Phone: comment on above:Daily for 3 Days starting 12/25/2021 until 12/27/2021, 1 completedCBC W Auto Differential panel - BloodCBC and differential Lab Routine Gastroesophageal reflux disease, unspecified whether esophagitis present Irritable bowel syndrome, unspecified type Obesity (BMI 35.0-39.9 without comorbidity) Immunocompromised (CMS/HCC) Chronic fatigue syndrome Fibromyalgia Rheumatoid arthritis involving multiple sites with positive rheumatoid factor ([facility]/HCC) Vitamin D deficiency Chronic fatigue Ordered: 08/29/2024[facility] Healthcare Work Phone: Comment on above:Ordered: 08/29/2024obalamin (Vitamin B12) [Mass/volume] in Serum or PlasmaVitamin B12 Lab Routine Gastroesophageal reflux disease, unspecified whether esophagitis present Irritable bowel syndrome, unspecified type Obesity (BMI 35.0-39.9 without comorbidity) Immunocompromised (CMS/HCC) Chronic fatigue syndrome Fibromyalgia Rheumatoid arthritis involving multiple sites with positive rheumatoid factor (CMS/HCC) Vitamin D deficiency Chronic fatigue Ordered: 08/29/2024[facility] HealthcareComment on above:Ordered: 08/29/2024omprehensive metabolic 2000 panel - Serum or Plasma Comprehensive metabolic panel Lab Routine Gastroesophageal reflux disease, unspecified whether esophagitis present Irritable bowel syndrome, unspecified type Obesity (BMI 35.0-39.9 without comorbidity) Immunocompromised (CMS/HCC) Chronic fatigue syndrome Fibromyalgia Rheumatoid arthritis involving multiple sites with positive rheumatoid factor ([facility]/HCC) Vitamin D deficiency Chronic fatigue Ordered: 08/29/2024[facility] HealthcareComment on above:Ordered: 08/29/2024 End: 58-16-4491BIRDR-19COVID-19 Lab Routine One Time for 1 Occurrences starting 11/09/2019 until 11/09/2019[facility] [place] [place]:One Time for 1 Occurrences starting 11/09/2019 until 11/09/2019CT Neck W contrast IVCT soft tissue neck w IV contrast Imaging Routine Mass of left side of neck Ordered: 08/29/2024[facility] HealthcareComment on above:Ordered: 08/29/2024Erythrocyte sedimentation rateSedimentation rate, automated Lab Routine Gastroesophageal reflux disease, unspecified whether esophagitis present Irritable bowel syndrome, unspecified type Obesity (BMI 35.0-39.9 without comorbidity) Immunocompromised (CMS/HCC) Chronic fatigue syndrome Fibromyalgia Rheumatoid arthritis involving multiple sites with positive rheumatoid factor (CMS/HCC) Vitamin D deficiency Chronic fatigue Ordered: 08/29/2024[facility] HealthcareComment on above:Ordered: 08/29/2024Ferritin [Mass/volume] in Serum or PlasmaFerritin Lab Routine Gastroesophageal reflux disease, unspecified whether esophagitis present Irritable bowel syndrome, unspecified type Obesity (BMI 35.0-39.9 without comorbidity) Immunocompromised (CMS/HCC) Chronic fatigue syndrome Fibromyalgia Rheumatoid arthritis involving multiple sites with positive rheumatoid factor ([facility]/HCC) Vitamin D deficiency Chronic fatigue Ordered: 08/29/2024[facility] HealthcareComment on above:Ordered: 08/29/2024Folate [Mass/volume] in Serum or PlasmaFolate Lab Routine Gastroesophageal reflux disease, unspecified whether esophagitis present Irritable bowel syndrome, unspecified type Obesity (BMI 35.0-39.9 without comorbidity) Immunocompromised (CMS/HCC) Chronic fatigue syndrome Fibromyalgia Rheumatoid arthritis involving multiple sites with positive rheumatoid factor ([facility]) Vitamin D deficiency Chronic fatigue Ordered: 08/29/2024[facility] HealthcareComment on above:Ordered: 08/29/2024Hepatitis B virus surface Ag [Presence] in Serum or Plasma by ImmunoassayHepatitis B surface antigen Lab Routine Gastroesophageal reflux disease, unspecified whether esophagitis present Irritable bowel syndrome, unspecified type Obesity (BMI 35.0-39.9 without comorbidity)Immunocompromised (CMS/HCC) Chronic fatigue syndrome Fibromyalgia Rheumatoid arthritis involving multiple sites with positive rheumatoid factor ([facility]) Vitamin D deficiency Chronic fatigue Ordered:08/29/2024[facility] HealthcareComment on above:Ordered: 08/29/2024Incentive spirometryIncentive spirometry Respiratory Care Routine Every 2hr while awake until discontinued starting 11/15/2019[facility] [place] [place] Comment on above:Every 2hr while awake until discontinued starting 11/15/2019 Iron + transferrin + TIBCIron + transferrin + TIBC Lab Routine Gastroesophageal reflux disease, unspecified whether esophagitis present Irritable bowel syndrome, unspecified type Obesity (BMI 35.0-39.9 without comorbidity) Im munocompromised ([facility]/HCC) Chronic fatigue syndrome Fibromyalgia Rheumatoid arthritis involving multiple sites with positive rheumatoid factor ([facility]/HCC) Vitamin D deficiency Chronic fatigue Ordered: 08/29/2024[facility] HealthcareComment on above:Ordered: 08/29/2024Magnesium [Mass/volume] in Serum or PlasmaMagnesium Lab Routine Gastroesophageal reflux disease, unspecified whether esophagitis present Irritable bowel syndrome, unspecified type Obesity (BMI 35.0-39.9 without comorbidity) Immunocompromised(CMS/HCC) Chronic fatigue syndrome Fibromyalgia Rheumatoid arthritis involving multiple sites with positive rheumatoid factor (CMS/HCC) Vitamin D deficiency Chronic fatigue Ordered: 08/29/2024[facility] HealthcareComment on above:Ordered: 08/29/2024 End: 55-19-6291ZY Cervical spine WO contrastMRI CERVICAL SPINE WO IVCON Radiology Routine Cervical spine arthritis with nerve pain Radicular pain in left arm Spinal stenosis of cervical region 1 Occurrences starting 09/10/2024 until 10/10/2025[facility] Work Phone: Comment on above:1 Occurrences starting 09/10/2024 until 10/10/2025Njx dx/ther agt pvrt facet jt crv/thrc 1 levelNJX DX/THER AGT PVRT FACET JT CRV/THRC 1 LEVEL Procedures Routine Facet arthropathy, cervical Recurrent occipital headache Ordered: 11/27/2024[facility] Work Phone: Comment on above:Ordered: 11/27/2024Oxygen therapy Initiate Oxygen Therapy Protocol Respiratory Care Routine Daily until discontinued starting 11/15/2019[facility] [place] [place]:Daily until discontinued starting 11/15/2019Oxygen therapy [Minimum Data Set]Initiate Oxygen Therapy Protocol Respiratory Care Routine Daily until discontinued starting 12/24/2021 [place] Work Phone: comment on above:Daily until discontinued starting 12/24/2021atient EducationDay[facility] Work Phone: Patient referralDayton Children'S Hospital [facility] Work Phone: QUANTIFERON TB GOLDQUANTIFERON TB GOLD Lab Routine Gastroesophageal reflux disease, unspecified whether esophagitis present Irritable bowel syndrome, unspecified type Obesity (BMI 35.0-39.9 without comorbidity) Immunocompromised ([facility]) Chronic fatigue syndrome Fibromyalgia Rheumatoid arthritis involving multiple sites with positive rheumatoid factor ([facility]) Vitamin D deficiency Chronic fatigue Ordered: 08/29/2024[facility] HealthcareComment on above:Ordered: 08/29/2024Spirometry panelIncentive spirometry Respiratory Care Routine Every 2hr while awake until discontinued starting 12/24/2021 [place] Work Phone: comment on above:Every 2hr while awake until discontinued starting 12/24/2021Thyrotropin [Units/volume] in Serum or Plasma Tsh+free t4 Lab Routine Gastroesophageal reflux disease, unspecified whether esophagitis present Irritable bowel syndrome, unspecified type Obesity (BMI 35.0-39.9 without comorbidity) Immunocompromised (CMS/HCC) Chronic fatigue syndrome Fibromyalgia Rheumatoid arthritis involving multiple sites with positive rheumatoid factor (CMS/HCC) Vitamin D deficiency Chronic fatigue Ordered: 08/29/2024[facility] HealthcareComment on above:Ordered: 08/29/2024Thyroxine (T4) free [Mass/volume] in Serum or PlasmaT4, free Lab Routine Gastroesophageal reflux disease, unspecified whether esophagitis present Irritable bowel syndrome, unspecified type Obesity (BMI 35.0-39.9 without comorbidity) Immunocompromised (CMS/HCC) Chronic fatigue syndrome Fibromyalgia Rheumatoid arthritis involving multiple sites with positive rheumatoid factor (CMS/HCC) Vitamin D deficiency Chronic fatigue Ordered: 08/29/2024[facility] HealthcareComment on above:Ordered: 08/29/2024 End: 04-01-7044LI[facility] Work Phone: Comment on above:Once for 1 Occurrences starting 01/29/2023 until 01/29/2023[facility] Work Phone: [facility] HospitalNEGATED: Highlighted row has been ruled out!Planned Goals not documentedChildren's Hospital of The King's DaughterssL[facility] Work Phone: Immunizations Immunization DateImmunizationNotesCare DnqtgmgsFqioobye26-43-0163Qarquoo 20 0.5 ML Intramuscular Suspension Prefilled SyringeMatthew C Petznick Work Phone: [facility] HospitalVkiics30-07-0994Xmnebtc COVID-19 Vaccine 100 MCG/0.5ML Intramuscular SuspensionMatthew C Petznick Work Phone: [phone]-JipgbqsquzyoAurora Hospital [address] DO Work Phone: [phone] COVID-19 Vaccine 100 MCG/0.5ML Intramuscular SuspensionMatthew C Petznick Work Phone: [facility]ufhtiqxuofiChildren[facility] [address] DO Work Phone: [phone]cna, seasonal, injectable, preservative freeMayenifer Juan DO Work Phone: noSaint Joseph Health CenterQgyluinapv11-69-3234tryvzzghh virus vaccine, unspecified formulationEly [address] [place] [address] Work Phone: Payers DatePayer CategoryPayerPolicy [id number]-[id number] Eligibility Medicare/Medicaid [id number] Health [id number] Health [id number] Cross Blue Shield [id number] Cross Blue Shield [id number] 2.840.3.272870.51335352-50-3652Qqahcmc857347Kka[id number] [id number] 2.16840.1.284985.3.579.[id number] 2.16840.1.941574.3.579.[id number] 2.840.1.929729.3.579.2.96576-97-7383Wvejmgz15298044 2.840.1.212521.3.579.2.22345-64-5716Tlplvmp68089953 2.16.840.1.322534.3.579.2.73262-57-9187Afwfkkg34832500 2.16.840.1.966560.3.579.2.20139-51-3095Hxpehri95903414 2.16.840.1.310980.3.579.2.80429-17-2862Pkyklcv69207416 2.16.840.1.398706.3.579.2.72124-05-3427Gkxhykq52529573 2.16.840.1.747625.3.579.2.797173-63-6800Zsfrcxf09739439 2.16840.1.992519.3.579.2.708043-14-5740Tuehfrs05438673 2.840.1.403299.3.579.2.743591-01-9680Opughiz44246043 2.840.1.578795.3.579.2.932150-98-9221Cvajohb73991307 2.840.1.110982.3.579.2.212729-75-2977Oqwrgot69799549 2.840.1.004082.3.579.2.749583-39-7000Qszomoa642993796 2.840.1.986338.3.579.2.93632-06-7687Xkpotaf697201590 2.16.840.1.342014.3.579.2.35558-52-4633Vsrwlji663716425 2.16840.1.739105.3.579.2.61422-28-2337Lczsbqn071578621 2.16.840.1.376752.3.579.2.59615-72-4734Qvpycxl242106031 2.16.840.1.734470.3.579.2.29130-49-4647Tmbwrrh882877500 2.16840.1.377896.3.579.2.86185-95-8156Wlxxkri82570655 2.16840.1.376133.3.579.2.522880-19-3099Bqjanax46085887 2.840.1.365426.3.579.2.892298-90-6826Szocued23818557 2.840.1.664923.3.579.2.567350-59-9655Efkesmk11027983 2.840.1.477054.3.579.2.810253-93-2416Wgqvzrs42106047 2.0.1.881291.3.579.2.104554-92-1986Nwexsun21628846 2.840.1.637073.3.579.2.239863-84-1884Cqevbhb39759943 2.0.1.351865.3.579.2.005661-79-6197Phgronk94337908 2.840.1.989224.3.579.2.069675-40-9518Saurbom72929568 2.840.1.336931.3.579.2.144048-97-9945Osghaed48794601 2.840.1.325079.3.579.2.143734-55-8781Usxzylz92828771 2.840.1.866637.3.579.2.689462-47-8735Laqzjru04231814 2.16840.1.778199.3.579.2.048750-00-9272Ugqfkun99355502 2.16840.1.175161.3.579.2.925765-66-7812Dzemhhd09455685 2.16.840.1.190522.3.579.2.595569-24-6372Xfmpykq44907899 2.16.840.1.008053.3.579.2.402355-94-5840Jsxnijg16684535 2.16.840.1.468367.3.579.2.952537-10-8840Dgrlsjf69801342 2.16.840.1.434135.3.579.2.854396-36-0854Dmxborh41388453 2.16.840.1.997843.3.579.2.681697-99-0084Edhkava44427508 2.840.1.699331.3.579.2.072337-09-8536Cnfnfuj71673731 2.840.1.641156.3.579.2.101306-98-8946Vbfzjcq01568506 2.16.840.1.279297.3.579.2.999920-41-0083Psjvnlw82058558 2..840.1.778371.3.579.2.258598-11-4203Vkfqysp61273994 2.840.1.193026.3.579.2.499900-10-6925Ffexrno11689472 2.840.1.675248.3.579.2.943130-28-8411Epyymvn92258897 2.16840.1.498760.3.579.2.575024-25-4654Ftyzgsu71725636 2.16.840.1.854375.3.579.2.004133-36-4679Zbckvsc4150877 2.16.840.1.796839.3.579.2.000010-68-2386Tshzbjr0370656 2.16.840.1.941601.3.579.2.866708-81-1502Klusgpy9914104 2.16.840.1.999961.3.579.2.723012-05-1317Xatyhed6714701 2.16.840.1.691864.3.579.2.436485-92-0391Ppddrif8407746 2.16.840.1.596195.3.579.2.1259Sewmchealthuzl897507685831Lkupuei52450065 2.16.840.1.747666.3.579.2.571Sekuipx73878766 2.16.840.1.612469.3.579.2.531 Worker's CompensationIndustrial Self Ins [id number] Social History DateTypeDetailFacilityAssertionTobacco smoking consumption unknown (finding)- [facility] Work Phone: Start: 11-09-2019 End: 59-52-2577Okgmfwr smoking status NHISFormer smokerB[facility]OU[facility] Start: 09-19-1980 End: 10-49-7618Eryewjy of tobacco useCurrent smokerK[facility]: 09-19-1980 End: 96-56-9190Nkqnboj of tobacco useCigarette SmokerK[facility] Health [facility]: 11-09-2019 End: 44-45-4385Masajuynja smoked current (pack per day) - ReportedJoint Township District Memorial HospitalComment on above:1-2 COFFEE DAILY;Start: 11-09-2019 End: 94-15-8029Wzavgdo use and exposureNever usedK[facility]tering Health [facility]: 11-09-2019 End: 63-00-1284Fosqcrd intakeCurrent drinker of alcohol (finding)[facility]: 11-28-2013 End: 12-03-5664Dvbcthp Commentquit 7 years ago[facility]LAVELLEStart: 70-41-2256Ujrnvyl CommentrareMBellevue HospitalLAVELLEStart: 73-16-3489Upt Assigned At BirthNot on fileSheltering Arms Hospital LAVELLEStart: 12-31-2019 End: 10-65-6332Wsanqfmr to SARS-CoV-2 (event)Not [facility] LAVELLEStart: 04-06-2022 End: 44-43-8155Noe Assigned At [facility]ertart: 12-07-2021 End: 36-30-7904Wffrbsge to SARS-CoV-2 (event)[facility] Work Phone: start: 32-07-3721Kjl Assigned At [facility] HarrisburgFeProMedica Bay Park Hospitaltart: 81-88-7364Jtbqsrd CommentsocialJoint Township District Memorial Hospital Start: 03-05-2012 End: 77-73-7480FJH0 Bnbgu4NxtnyuqopGuernsey Memorial Hospitaltart: 11-19-2022 End: 05-89-0310Xiachjy smoking status NHISNever smoked tobacco (finding) [facility] Health Systemtart: 01-24-2023 End: 22-86-4544Kklsugz intakeLifetime non-drinker (finding)[facility] Work Phone: Start: 01-85-3805Chnsauf CommentLast smoked : > 10 yearsC[facility] HealthcareStart: 62-05-6188Cttyuhe Commentcaffeine intake : 1 cup per day ; coffeeCEDAR CITY HOSPITAL HealthcareStart: 16-30-9762Kjabokb smoking status NHISSmokes tobacco dailyGuernsey Memorial Hospitaltart: 04-25-2024 End: 81-26-2022FtjAqahsq (finding)[facility], IncHow often to you have a drink containing alcohol?NeverCEDAR CITY HOS[facility]ITAL HealthcareStart: 91-15-1251Jsomzoa smoking statusYesCRYSTOH [employer] Work Phone: Start: 63-95-5141Kbejnpg smoking statusNever smoked any substance (finding)[employer] Work Phone: Medical Equipment Procedure CodeEquipment CodeEquipment Original TextEquipment IdentifierDatesImpl Knee Tritanium Asymmetric [id number]: 64-54-9732Tfhz Knee Baseplate Tib Tri Sz [id number]: 05-43-8161Scxi Knee Tib Insrt Postr Sz 4 9mm [id number]: 88-71-8937Kxeh Knee Fem Cruciate Rataining Sz [id number]: 55-14-8292Uksi Capped Knee [id number]_vhhXxoog: 29-30-8190Vcpgirj on above: Description: CAP $4000.00 + UPCHARGES: $150 X3 LINER + $100 TRI TIB + $300 TRI PATELLAComponent Part Knee Capped K1 Honey - [id number]: 71-71-6074Ddeacjt on above:Description: K1 CAP $3300.00 + UPCHARGES $150 X3 LINER + $200 X3 PATELLA + OUTSIDE CAP $562.80 PINSMatrix Clarix Amniotic Membrane Umbilical Cord 4x3cm Tissue Allograft - [id number]: 54-36-7372Pkw Implant System 4.75mm [id number]_umnGveoh: 12-30-2022 Goals DatePatient GoalDesired Activity/State Functional Status LlgiHqicmwdjqtFadshiWnxahknr79-32-1392Yaknqpo Health Questionnaire 2 item (PHQ- 2) [Reported][facility] HospitalCqktxvxqxa28-12-5991Iwvog score [AUDIT-C]0 05/07/2024 3:43 PM Marcelina Armando LPNNOMS Zwwqwflood56-41-8691Vfnkoti Health Questionnaire 2 item (PHQ-2) [Reported][facility] HospitalRyqcympaty86-80-9796Vzy you deaf, or do you have serious difficulty hearingNo 12/30/2022 6:55 PM Mary Peter RN No [facility] HospitalYudvbs96-22-2896Cjz you blind, or do you have serious difficulty seeing, even when wearing glassesNo 12/30/2022 6:55 PM Mary Peter RN No [facility] HospitalBuazsl91-04-8441Jh you have serious difficulty walking or climbing stairsNo 12/30/2022 6:55 PM EDT Mary Branch RN [facility]09-28-2023 Do you have difficulty dressing or bathingNo 12/30/2022 6:55 PM EDT Mary Branch RN [facility] HospitalRqjjyp43-87-2921Acvmkli of a physical, mental, or emotional condition, do you have difficulty doing errands alone such as visiting a physician's office or shoppingNo 12/30/2022 6:55 PM EDT Mary Branch RN [facility] CenterNEGATED: Highlighted rowFunctional performance Functional status health issues are not documented [facility] Work Phone: Mental Status NjbrXjbbvapstaMdemsyBwzbyhqk63-05-6753Xmcedpfex FunctionKindred Hospital [facility] - [facility]own Work Phone: [phone]) [phone]fkhl of a physical, mental, or emotional condition, do you have serious difficulty concentrating, remembering, or making decisionsNo 12/30/2022 6:55 PM EDT Mary Branch RN [facility] HospitalNEGATED: Highlighted rowCognitive function [Interpretation]Cognitive status health issues are not documented [facility] Work Phone: Clinical Notes 11-03-2019 to 02-12-2025 Note Date & DepcWifjCbiskvsa71-65-9578 NoteHNO ID: [id number] Author: YAMILET RAMOS R Ac Service: ? Author Type: Diplomat of Acupuncture Type: Progress Notes Filed: 02/12/2025 17:35 Note Text: The patient did not show up for this appointment.[facility] 01-15-2025 NoteHNO ID: [id number] Author: YAMILET RAMOS R Ac Service: ? Author Type: Diplomat of Acupuncture Type: Progress Notes Filed: 01/15/2025 12:31 Note Text: Caty Hills a 64 year old female presents to the acupuncture clinic on 01/15/25 for a follow up visit. Patient identity confirmed by name and : Yes This is the 2nd visit for the patient this year Initial Acupuncture treatment date: 01-10-25 Chief Complaint and Subjective: Chronic low back pain Chronic neck pain Chronic upper back pain Chronic mid back pain Response/update. Patient notes she felt very good day after acupuncture, then she had a physical therapy session which caused her to have much pain up until today's visit. Moderate pain intensities. Notes from [facility] 01-10-25 Patient has a history of lumbar fusion with intact surgical hardware, lumbar anterolisthesis, lumbar retrolisthesis, lumbar degenerative disc disease, lumbar facet arthropathy, cervical anterolisthesis, cervical degenerative disc disease, cervical stenosis, bilateral total knee replacements. Patient states that these pains have been happening for years and even longer. She remarks that the pains are constantly present with some let up on the pain when she takes a muscle relaxant. Pains to low back are primarily on the right side and with some sciatica going down left leg. Patient says that these pains have negatively impacted her activities of daily life, but she still forces herself to be as active as she can be and not being confined to her home fully. Patient notes going through Pain Management and Physical Therapy. Notes from Pain Management 11-27-24 The patient is a 64-year-old female with rheumatoid arthritis and tachycardia with a loop recorder, presenting for evaluation and management of chronic neck and low back pain. Patient reports the date of onset of symptoms as 1 year and describes the location of the pain as posterior neck. The pain is chronic, radiating, and rated as 7, radiates up head. Patient reports that neck pain is increased by pain is constant and relieved by prednisone. HPI: Neck Pain: - Onset last year. - Pain radiates down through shoulders, worse on the left side. - Tolerable in the morning, worsens throughout the day, leading to severe headaches by evening. - Pain is bilateral but more pronounced on the left side. - Recent MRI of the neck performed by Dr. No. - Caty is taking Prednisone 5 mg PRN for relief; prescribed by Dr. No. - Denies any issues with neck positions or range of motion. Low Back Pain: - Chronic, intermittent pain for years; worsens during flare-ups with inflammation. - Caty underwent spinal fusion surgery with a cage and three screws in [place] by Dr. Marcelo approximately 10-15 years ago; provided some pain relief. - Fractured lower back 2 years ago after a fall on the front porch; treated by Dr. Jerry Johnson with cement injection. - Experiences numbness and muscle spasms in the left leg, especially at night. - Pain radiates from the knee down to the hip on the left side. - Pain is alleviated by standing and walking; worsens with prolonged sitting. - Uses specific stretches and exercises for relief. - Denies recent physical therapy or chiropractic treatment. - No recent imaging of the lower back. Rheumatoid Arthritis: - Managed by Dr. No. - Caty is taking Rinvoq for several years; previously tried other biologics but found Rinvoq most tolerable. Tachycardia: - Caty has a loop recorder implanted. - Underwent an electrophysiology study in [place], which was inconclusive. PAIN ASSESSMENT: Currently experiencing pain Pain better with acupuncture OBJECTIVE: Alert, Moderate distress, and Cooperative Well-Groomed and Pleasant Normal breathing pattern TCM Tongue: --- TCM Pulse: --- ASSESSMENT Patient presents with signs and symptoms consistent with the diagnosis. Patient would benefit from acupuncture therapy to address listed deficiencies and return to PLOF. Pt was educated on symptoms, prognosis, plan of care and activity modifications. Pt verbalized understanding and agreed to begin care. TCM Pattern: chronic low back pain, chronic neck pain, chronic upper back pain, chronic mid back pain TCM Treatment Principle: smooth qi PLAN OF CARE Counseled patient on risks of acupuncture treatment including pain, infection, bleeding, and no relief of pain. The patient was positioned comfortably. There was no evidence of infection at the site of needle insertions. Acupuncture Treatment: Treatment/Needle Set 1, Prone: Points: medardo neck, upper back, mid back, and low back without electro due to surgical hardware. 25 minutes face to face with patient for set 1 Treatment/Needle Set 2, Prone: Points: medardo neck and low back without electro 5 minutes face to face with patient for set 2 [place] were retained for 30 minutes # (more content not included)...[facility]10-10-2025 History of Present illness Narrative* Griselda Ortiz, PT - 01/11/2025 9:00 AM EDT Images from the original note were not included. Time In: 9:00 am Time Out: 9:55 am Supervised Time: 55 min Total Time: 55 min Visit Number: 2, 40 visits per year Chief Complaint: M25.562: Pain in left knee S83.92XA: Sprain of unspecified site of left knee S86.912A: Strain of unspecified muscle(s) and tendon(s) at lower leg level, left leg X-rays: some subluxation of femur which may indicate PCL deficient knee. She is experiencing instability. Issued knee brace, sent to PT for quad and hamstring strengthening. Pt has been completing strengthening exercise at home, arrives today to review, update knee program. PT has been focusing on back and neck pain by pt request. Currently seeing PT for neck and back pain, headaches. Pt tried acupuncture for back pain and headaches this past week, states it may have helped a little. Headaches: decreased frequency but same intensity. Precautions: Lumbar fusion L5S1, cardiac loop recorder: NO E-STIM, L3 fracture with cement fixation Subjective Mechanism of injury: left TKA in 2019. Developing instability over past several months, worsening. Worse with WB activities, steps Location of Symptoms: left knee, can radiate to pop fossa Pain level: 4-5/10 pain level currently, feels stiff Imaging: Left knee three views. Status post total knee replacement slight posterior slip subluxation of the femur on the tibia on the lateral x-ray which is a change from previous x-ray no evidence of fracture dislocation or other bony abnormality Objective ROM AAROM: R Knee flexion: 120deg R Knee extension: 0 deg L Knee flexion: 130 deg L Knee extension: 10 deg Muscle Strength: R LE: 4.5/5 L knee extension: 4/5 fatigues with quad sets No lag with SLR L knee flexion: 4/5 L hip flexion: 4/5 L hip abduction: 4/5 Palpation: swelling medial femoral condyle Joint Play: increased with observation with WB activities Muscle length: mild decrease left quads, ITB Prior Level of Function: Ambulation: indep with short stride length, mild toe out on left Assistive Devices: none ADLs: Indep INTERVENTIONS: X 40 min therapeutic exercises with written instructions for light stretching, strengthening left LE X 15 min neuromuscular re-ed PT Assessment: Therapy Diagnosis: left knee pain s/p left TKA weakness, giving way Functional Limitations: LEFS: 45/80 points, 44% impairment Intermediate Goals: in 6 weeks Increase strength left LE to 4.5/5 or better to improve endurance and abolish giving way Walk with equal stride length and step time. Ascend/descend steps with reciprocal pattern without increased left knee pain. Home program in place 0-2/10 pain with pt able to manage symptoms independently Assessment: has lost 10 deg extension left knee. Weakness seen with sidelying clamshells ex and lateral leg raises today. Challenged with total gym exercise. Needs to continue core and LE exercise for both knee and back pain, LE proprioceptive exercises. Plan: PT 1-4x/month Treatment: therapeutic exercises, balance and proprioceptive training, manual therapy as needed, modalties as needed for pain and inflammation: ice I hereby deem this POC medically necessary. Please sign below and fax back to the number below. Physician Signature: Date: documented in this encounterEllett Memorial [id number] NoteHNO ID: [id number] Author: YAMILET RAMOS R Ac Service: ? Author Type: Diplomat of Acupuncture Type: Progress Notes Filed: 01/10/2025 08:54 Note Text: Caty Hills a 64 year old female presents to the acupuncture clinic on 01/10/25 for an initial consultation. Patient identity confirmed by name and : Yes Chief Complaint and Subjective: Chronic low back pain Chronic neck pain Chronic upper back pain Chronic mid back pain Other history: rheumatoid arthritis, headaches, chronic knee pains Patient has a history of lumbar fusion with intact surgical hardware, lumbar anterolisthesis, lumbar retrolisthesis, lumbar degenerative disc disease, lumbar facet arthropathy, cervical anterolisthesis, cervical degenerative disc disease, cervical stenosis, bilateral total knee replacements. Patient states that these pains have been happening for years and even longer. She remarks that the pains are constantly present with some let up on the pain when she takes a muscle relaxant. Pains to low back are primarily on the right side and with some sciatica going down left leg. Patient says that these pains have negatively impacted her activities of daily life, but she still forces herself to be as active as she can be and not being confined to her home fully. Patient notes going through Pain Management and Physical Therapy. Notes from Pain Management 11-27-24 The patient is a 64-year-old female with rheumatoid arthritis and tachycardia with a loop recorder, presenting for evaluation and management of chronic neck and low back pain. Patient reports the date of onset of symptoms as 1 year and describes the location of the pain as posterior neck. The pain is chronic, radiating, and rated as 7, radiates up head. Patient reports that neck pain is increased by pain is constant and relieved by prednisone. HPI: Neck Pain: - Onset last year. - Pain radiates down through shoulders, worse on the left side. - Tolerable in the morning, worsens throughout the day, leading to severe headaches by evening. - Pain is bilateral but more pronounced on the left side. - Recent MRI of the neck performed by Dr. No. - Caty is taking Prednisone 5 mg PRN for relief; prescribed by Dr. No. - Denies any issues with neck positions or range of motion. Low Back Pain: - Chronic, intermittent pain for years; worsens during flare-ups with inflammation. - Caty underwent spinal fusion surgery with a cage and three screws in [place] by Dr. Marcelo approximately 10-15 years ago; provided some pain relief. - Fractured lower back 2 years ago after a fall on the front porch; treated by Dr. Jerry Johnson with cement injection. - Experiences numbness and muscle spasms in the left leg, especially at night. - Pain radiates from the knee down to the hip on the left side. - Pain is alleviated by standing and walking; worsens with prolonged sitting. - Uses specific stretches and exercises for relief. - Denies recent physical therapy or chiropractic treatment. - No recent imaging of the lower back. Rheumatoid Arthritis: - Managed by Dr. No. - Caty is taking Rinvoq for several years; previously tried other biologics but found Rinvoq most tolerable. Tachycardia: - Caty has a loop recorder implanted. - Underwent an electrophysiology study in [place], which was inconclusive. The patient's history is well detailed in the EMR. OBJECTIVE: Physical Exam: Tenderness: mild Pain with palpation: mild ROM: limited per patient remarks Tightness: trap muscles Gait/Ambulation: slower [place]: good Qi/Patient vitality: good Alert, Moderate distress, and Cooperative Well-Groomed and Pleasant Normal breathing pattern Imaging reports Images on file EMR TCM Tongue: --- TCM Pulse: --- ASSESSMENT Patient presents with signs and symptoms consistent with the diagnosis. Patient would benefit from acupuncture therapy to address listed deficiencies and return to PLOF. Pt was educated on symptoms, prognosis, plan of care and activity modifications. Pt verbalized understanding and agreed to begin care. TCM Pattern: chronic low back pain, chronic neck pain, chronic upper back pain, chronic mid back pain TCM Treatment Principle: smooth qi PLAN OF CARE Counseled patient on risks of acupuncture treatment including pain, infection, bleeding, and no relief of pain. The patient was positioned comfortably. There was no evidence of infection at the site of needle insertions. Counseled patient on differences between Shared Acupuncture Medical Appointment and Private Visit follow-ups. Patient is a suitable candidate for Shared Acupuncture Medical Appointments (NELSY): No Recommended Treatment Schedule: weekly x 3 weeks, then biweekly x 3 months, then monthly thereafter ongoing until very good improvement in decreasing pains is achieved. Patient will then be re-evaluated for therapeutic effect. (more content not included)...[facility]10-08-2025 History of Present illness Narrative* Rodney Lamb MD - 01/09/2025 10:45 AM EDT Images from the original note were not included. 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 Physical exam General: No acute distress and breathing comfortably. Patient is pleasant and cooperative with the examination. Extremity Left knee has a well-healed midline incision she has got a little bit of hyperextension some moderate mid flexion instability varus valgus and anterior posterior brisk cap refill compartment soft calf is nontender Diagnostics Imaging No results found. Cardiology, Vascular, and Other Imaging No other imaging results found for the past 7 days Procedure [ none] Assessment Status post left knee replacement with instability Treatment plan 1. The natural history of the condition and its associated treatment alternatives including surgical and nonsurgical options were discussed with the patient at length. 2. Symptoms seem to be well-controlled with her knee brace and physical therapy she is hong stay the course with conservative management continue work on strengthening of the knee I explained if the instability becomes more severe or more significant or she gets tired of wearing the knee brace there are options from a surgical standpoint converting to a thicker poly probably a posterior stabilized implant but she wants to hold off for now she will follow-up in 3 months with x-rays sooner if shehas increased pain or discomfort. 3. [ ] 4. All of the patient's questions were answered. No orders of the defined types were placed in this encounter. This note was prepared using voice recognition software. The details of this note are correct and have been reviewed, and corrected to the best of my ability. Some grammatical areas may persist related to the [employer] Rodney Lamb MD Senior Attending Physician [facility] documented in this encounterPaulding County Hospital Work Phone: [phone] 470-667910-01-2025 NoteHNO ID: [id number] Author: CHRIS NO MD Service: ? Author Type: Physician Type: Progress Notes Filed: 01/02/2025 16:45 Note Text: Rheumatology Outpatient Clinic Date of Service: 01/02/2025 Patient: Caty Hills Medical Record: [id number] Primary Care Physician: Anibal Juan, DO, DO Last Rheumatology visit: 09/10/2024 (with Chris No) History of Present Illness Caty Hills is a 64 year old White female who presents on 01/02/2025 for an in-person visit for evaluation of Rheumatoid Arthritis (Follow up). She is currently taking hydroxychloroquine sulfate, meloxicam, prednisone, upadacitinib. Her most recent CHERIE was negative (07/11/2020). HISTORY OF PRESENT ILLNESS This patient is known to me from my previous practice with [facility] with diagnosis of rheumatoid arthritis. This patient has been on DMARD therapy in the past with methotrexate and has not tolerated it well. She had been on a sequence of Biologics and when last seen in May 2021 was on Rinvoq 15 mg daily and doing well. Then in June 2021 that she developed a bout of iritis. She was being seen by a different real estate specialist with [facility] and switch her off of Rinvoq and placed her on Humira for the iritis. The patient has tolerated the Humira and it is improved her iritis. She has not needed to be on topical steroid treatment for her eyes in several months now. She does get some breakthrough discomfort in her eyes but no full-blown iritis. Where is a bigger problem is off of the Rinvoq she is had escalation of rheumatoid arthritis activity in her hands, wrists, shoulders, right knee and toes despite being on the Humira. Her other real estate specialist is even attempted to place methotrexate in combination with the Humira and this did not improve her rheumatoid arthritis and she felt ill on the methotrexate and has discontinued it. She was inquiring as to whether or not she would be allowed to go back onto the Rinvoq. Aside from the iritis she has not experienced any other extra-articular manifestations of rheumatoid arthritis. She shares with me that she had her right knee replaced 3 months ago and it is not doing as well as the left knee did from 2-1/2 years ago. The right knee remains quite swollen and painful and she believes the rheumatoid arthritis may be contributing to the right knee pain. INTERVAL HISTORY Patient returns for reevaluation and management of her rheumatoid arthritis. Since last visit patient continues Rinvoq 15 mg daily and hydroxychloroquine at 200 mg daily. Rheumatoid arthritis been under fair control on a global basis. She is having specific areas that are a problem for her particularly her knees of the left knee replacement is structurally somewhat on sound. She is in physical therapy and bracing for this with fair results. She has been under the care of spine medicine current recommendation is physical therapy for spinal stabilization. Thus far there has been subtle response. She is now working with a spine surgeon with [place] [facility] and he believes there is instability in both the cervical and lumbar spine and has an MRI of the lumbar spine scheduled for late January. There are no new extra-articular manifestations of rheumatoid arthritis. Her general health has been unchanged from last visit. Rheum/Ortho Arthrocentesis Injections (last 5) 03/02/2023 12:44 Injection History Location thumb Thumb Site R thumb [facility] Patient-Entered Data PAIN EVALUATION 01/02/2025 1621 Pain Level: 6 Pain Location: Neck-Posterior Description: Aching Duration Units: Years PROMIS Assessments 09/22/2024 07/31/2023 PROMIS Assessments Physical Health Percentile 7 10 Mental Health Percentile 13 26 Pain Score 3 3 Pain Interference Percentile 4 Fatigue Percentile 10 Physical Function Percentile 7 RAPID 3 [place] Activities of Daily Living 07/31/2023 3:09 PM Dress self? With SOME difficulty Get in and out of bed? With SOME difficulty Walk outdoors? With SOME difficulty Wash and dry body? Without ANY difficulty Get in and out of car? With SOME difficulty RAPID 3 Disease Activity Weighed Score Levels: 0 - 1: Near Remission 1.3 - 2.0: Low Severity 2.3 - 4.0: Moderate Severity 4.3 - 10.0: High Severity 07/31/2023 RAPID-3 Weighed Score RAPID 3 Weighed Score 4.83 (High severity ) Review of Systems Review of Systems CONSTITUTION: Negative for: Weight loss or gain, Fever. Chills, Night sweats HEENT: Negative for: Nosebleeds, Mouth sores, Trouble swallowing, Dry mouth RESPIRATORY: Negative for: Cough, Shortness of breath, Pain with breathing, Coughing up blood GASTROINTESTINAL: Negative for: Melena, Diarrhea, Abdominal pain, Heartburn, MUSCULOSKELETAL: Positive for: Arthralgias, Myalgias and Morning Joint Stiffness Negative for: Muscle weakness and Joint swelling NEUROLOGICAL: Negative for: Headaches, Numbness, Silvano (more content not included)...[facility]09-26-2025 History of Present illness Narrative* Griselda Ortiz, PT - 12/28/2024 11:30 AM EDT Images from the original note were not included. 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 No, Rigging Slinger also. Evaluated on 12/14/24 for left knee pain. Referral from Dr. Wyatt. Precautions: lumbar fusion L5-S1, cardiac loop recorder: NO E-STIM. Rheumatoid arthritis Subjective Mechanism of injury: S/p lumbar spinal fusion 10-15 years ago, then fell on porch 2 years ago and fractured L3. Treated by Dr. Johnson with cement injection. Continues to have numbness and tingling and muscle spasms left leg. Also left knee giving way. Neck pain left more than right through shoulders,worsens through day Back pain worsens with stand, walk, lifting. Pain disturbs sleep. Neck pain worse with reading, sleeping, driving. Pain level: 6/10, left neck pain radiating to left ear, headache. Progress: improves immediately post treatment, then pain returns. Imaging: X-ray: 11/27/24: Mild to moderate L3 superior endplate compression fractures status post vertebral body cement position.Remaining vertebral body heights are preserved. There is grade 1 anterolisthesis L4 on L5. There is minimal retrolisthesis L1 on L2. Moderate to severe L4-L5 degenerative disc disease. X-ray cervical spine 11/27/24: Vertebral body heights are maintained. There is mild anterolisthesis C3 on C4. Mild C3-C4 and mild to moderate C5-C6 and C6-C7 degenerative disc disease. Prevertebral soft tissues are normal. Objective (from IE on 12/07/24) Posture / Appearance: no lateral shift Lumbar AROM: flexion: fingertips to ankles, no pain extension: not assessed side bend: 25% decrease bilaterally Cervical AROM: Flexion: 30 deg Ext: 55 deg L sidebend: 20 deg R sidebend: 30 deg L rotation: 65 deg R rotation: 65 deg Shoulder ROM: WNL bilaterally Muscle Strength: R LE: 5/5 L knee extension: 4/5 L knee flexion: 4/5 L hip flexion: 4/5 L hip abduction: 4/5 UE strength: 4/5 proximally 5/5 biceps, triceps, wrist, hand bilaterally. Posture: increased lumbar lordosis Palpation: sore lower cervical spine, C3-4. , L4 Joint Play: increased L4, decreased left SI. Muscle length: ITB: ok, decreased left quads Special Tests: Negative SLR test bilaterally. Negative hip scour and MEGHAN bilaterally. Positive median nerve stretch test on right, negative on left. Negative Spurlings compression/distraction. INTERVENTIONS: X 35 minutes of manual therapy cervical spine and lumbar spine at TL junction. MT included SOR, manual traction, neural mobes. X 25 minutes of therapeutic exercises Neck: thoracic extension focus. Ice low back while working on C-spine PT Assessment: Therapy Diagnosis: lumbar radiculopathy with history of lumbar fusion, cement of compression fracture L3, cervical spondylosis, headaches Functional Limitations: Back Index: 18/50 points, Neck Index: 25/50 points, 50% impairment Intermediate Goals: in 6 weeks Decrease headache pain 50% in 2-3 weeks Pt able to stabilize lumbar spine with UE and LE exercises Normalize intersegmental mobility cervical and thoracic spine Home program in place 0-2/10 pain with pt able to manage indep Assessment: Positive left SLR test with hypomobile left SI. Headaches with cervical restrictions addressed with manual therapy and exercise. Core strength also addressing LE's. LBP increased with getting up off table. Plan: PT 1x /week neck and back. Pt to be evaluated for knee pain next session. documented in this encounterEllett Memorial [id number] History of Present illness Narrative* Griselda Ortiz, PT - 12/26/2024 11:00 AM EDT Images from the original note were not included. 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 No, Rigging Slinger also. Evaluated on 12/14/24 for left knee pain. Referral from Dr. Wyatt. Precautions: lumbar fusion L5-S1, cardiac loop recorder: NO E-STIM. Rheumatoid arthritis Subjective Mechanism of injury: S/p lumbar spinal fusion 10-15 years ago, then fell on porch 2 years ago and fractured L3. Treated by Dr. Johnson with cement injection. Continues to have numbness and tingling and muscle spasms left leg. Also left knee giving way. Neck pain left more than right through shoulders,worsens through day Back pain worsens with stand, walk, lifting. Pain disturbs sleep. Neck pain worse with reading, sleeping, driving. Pain level: 6/10, left neck pain radiating to left ear, headache. Progress: improves immediately post treatment, then pain returns. Imaging: X-ray: 11/27/24: Mild to moderate L3 superior endplate compression fractures status post vertebral body cement position.Remaining vertebral body heights are preserved. There is grade 1 anterolisthesis L4 on L5. There is minimal retrolisthesis L1 on L2. Moderate to severe L4-L5 degenerative disc disease. X-ray cervical spine 11/27/24: Vertebral body heights are maintained. There is mild anterolisthesis C3 on C4. Mild C3-C4 and mild to moderate C5-C6 and C6-C7 degenerative disc disease. Prevertebral soft tissues are normal. Objective (from IE on 12/07/24) Posture / Appearance: no lateral shift Lumbar AROM: flexion: fingertips to ankles, no pain extension: not assessed side bend: 25% decrease bilaterally Cervical AROM: Flexion: 30 deg Ext: 55 deg L sidebend: 20 deg R sidebend: 30 deg L rotation: 65 deg R rotation: 65 deg Shoulder ROM: WNL bilaterally Muscle Strength: R LE: 5/5 L knee extension: 4/5 L knee flexion: 4/5 L hip flexion: 4/5 L hip abduction: 4/5 UE strength: 4/5 proximally 5/5 biceps, triceps, wrist, hand bilaterally. Posture: increased lumbar lordosis Palpation: sore lower cervical spine, C3-4. , L4 Joint Play: increased L4, decreased left SI. Muscle length: ITB: ok, decreased left quads Special Tests: Negative SLR test bilaterally. Negative hip scour and MEGHAN bilaterally. Positive median nerve stretch test on right, negative on left. Negative Spurlings compression/distraction. INTERVENTIONS: X 30 minutes of manual therapy cervical spine and lumbar spine at TL junction. MT included SOR, manual traction, neural mobes. X 15 minutes of therapeutic exercises Neck: thoracic extension focus. X [address] junction PT Assessment: Therapy Diagnosis: lumbar radiculopathy with history of lumbar fusion, cement of compression fracture L3, cervical spondylosis, headaches Functional Limitations: Back Index: 18/50 points, Neck Index: 25/50 points, 50% impairment Intermediate Goals: in 6 weeks Decrease headache pain 50% in 2-3 weeks Pt able to stabilize lumbar spine with UE and LE exercises Normalize intersegmental mobility cervical and thoracic spine Home program in place 0-2/10 pain with pt able to manage indep Assessment: left 2nd rib elevated. Very stiff upper cervical today. No headache after PT. Ice applied to decrease post-treatment soreness. Added deep neck flexors today. Plan: PT 1x /week neck and back. Pt to be evaluated for knee pain next session. documented in this encounterEllett Memorial [id number] Telephone encounter Note* Telephone Encounter - Kellee Crook RN - 12/19/2024 12:34 PM EDT I called and spoke with the patient. I informed the patient that she would need to call the radiology department or the facility that the MRI was completed to request a disc to either be picked up or sent to her home. Patient voiced understanding. [facility]09-17-2025 Miscellaneous Notes* Telephone Encounter - Kellee Crook RN - 12/19/2024 12:34 PM EDT I called and spoke with the patient. I informed the patient that she would need to call the radiology department or the facility that the MRI was completed to request a disc to either be picked up or sent to her home. Patient voiced understanding. * Telephone Encounter - Yamilka Ambriz - 12/18/2024 10:24 AM EDT [facility] on behalf [facility] is calling Josh Mcgowan MD today to request images from patient's Cervical Spine MRI from 09/18. They state they've received discs with all other imaging otherthan this MRI. Patient is currently at their office. Please call to advise\. [phone] ext [phone] Patient has been identified by name and birthdate. Duration of symptoms: N/A Was an appointment scheduled: No Closing statement: Results or non-symptom based questions: Thank you for calling [facility], your call will be returned within the next business day. Yamilka Ambriz documented in this encounterJoint Township District [facility]09-[facility]2025 Telephone encounter Note * Telephone Encounter - Yamilak Ambriz - 12/18/2024 10:24 AM EDT [facility] on behalf [facility] is calling Josh Mcgowan MD today to request images from patient's Cervical Spine MRI from 09/18. They state they've received discs with all other imaging otherthan this MRI. Patient is currently at their office. Please call to advise\. [phone] ext [phone] Patient has been identified by name and birthdate. Duration of symptoms: N/A Was an appointment scheduled: No Closing statement: Results or non-symptom based questions: Thank you for calling [facility], your call will be returned within the next business day. 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 No, Rigging Slinger also. Has seen Dr. Lamb lately for left knee pain. Pt states she should be getting prescription for this. Precautions: lumbar fusion L5-S1, cardiac loop recorder: NO E-STIM. Rheumatoid arthritis Subjective Mechanism of injury: S/p lumbar spinal fusion 10-15 years ago, then fell on porch 2 years ago and fractured L3. Treated by Dr. Johnson with cement injection. Continues to have numbness and tingling and muscle spasms left leg. Also left knee giving way. Neck pain left more than right through shoulders,worsens through day Back pain worsens with stand, walk, lifting. Pain disturbs sleep. Neck pain worse with reading, sleeping, driving. Pain level: 5/10, has headaches, pain left side of neck more than right. Also with left-sided back pain. Progress: no change Imaging: X-ray: 11/27/24: Mild to moderate L3 superior endplate compression fractures status post vertebral body cement position.Remaining vertebral body heights are preserved. There is grade 1 anterolisthesis L4 on L5. There is minimal retrolisthesis L1 on L2. Moderate to severe L4-L5 degenerative disc disease. X-ray cervical spine 11/27/24: Vertebral body heights are maintained. There is mild anterolisthesis C3 on C4. Mild C3-C4 and mild to moderate C5-C6 and C6-C7 degenerative disc disease. Prevertebral soft tissues are normal. Objective (from IE on 12/07/24) Posture / Appearance: no lateral shift Lumbar AROM: flexion: fingertips to ankles, no pain extension: not assessed side bend: 25% decrease bilaterally Cervical AROM: Flexion: 30 deg Ext: 55 deg L sidebend: 20 deg R sidebend: 30 deg L rotation: 65 deg R rotation: 65 deg Shoulder ROM: WNL bilaterally Muscle Strength: R LE: 5/5 L knee extension: 4/5 L knee flexion: 4/5 L hip flexion: 4/5 L hip abduction: 4/5 UE strength: 4/5 proximally 5/5 biceps, triceps, wrist, hand bilaterally. Posture: increased lumbar lordosis Palpation: sore lower cervical spine, C3-4. , L4 Joint Play: increased L4, decreased left SI. Muscle length: ITB: ok, decreased left quads Special Tests: Negative SLR test bilaterally. Negative hip scour and MEGHAN bilaterally. Positive median nerve stretch test on right, negative on left. Negative Spurlings compression/distraction. INTERVENTIONS: X 35 minutes of manual therapy cervical spine and lumbar spine at TL junction. MT included SOR, manual traction, neural mobes. X 30 minutes of therapeutic exercises lumbar: flexion, stabes, flexibility. Neck: thoracic extension focus. PT Assessment: Therapy Diagnosis: lumbar radiculopathy with history of lumbar fusion, cement of compression fracture L3, cervical spondylosis, headaches Functional Limitations: Back Index: 18/50 points, Neck Index: 25/50 points, 50% impairment Freight Clerk Goals: in 6 weeks Decrease headache pain 50% in 2-3 weeks Pt able to stabilize lumbar spine with UE and LE exercises Normalize intersegmental mobility cervical and thoracic spine Home program in place 0-2/10 pain with pt able to manage indep Assessment:continued lumbar flexion and stabilization program. No increase in pain with new exercises. Manual therapy completed to address neck and back pain. Plan: PT 1x /week neck and back. Pt to be evaluated for knee pain next session. documented in this encounterEllett Memorial [id number] History of Present illness Narrative* Griselda Ortiz, PT - 12/14/2024 12:00 PM EDT Images from the original note were not included. Time In: 12:05 Time Out: 1:00 pm Supervised Time: 55 min Total Time: 55 min Evaluation Time: 20 min Visit Number: 1, 40 visits per year Chief Complaint: M25.562: Pain in left knee S83.92XA: Sprain of unspecified site of left knee S86.912A: Strain of unspecified muscle(s) and tendon(s) at lower leg level, left leg Precautions: Lumbar fusion L5S1, cardiac loop recorder: NO E-STIM, L3 fracture Currently seeing PT for neck and back pain, headaches Subjective Mechanism of injury: Left knee pain x 4.5 years since left TKA. Feels unstable Location of Symptoms: left knee Pain level: 4-5/10 pain level currently, feels stiff What increases symptoms: stairs, walking, heavy activities What decreases symptoms: rest Pain radiates: pop fossa Timing of pain: intermittent but daily Numbness/tingling: no Imaging: Left knee three views. Status post total knee replacement slight posterior slip subluxation of the femur on the tibia on the lateral x-ray which is a change from previous x-ray no evidence of fracture dislocation or other bony abnormality Objective ROM AAROM: R Knee flexion: 120deg R Knee extension: 0 deg L Knee flexion: 113 deg L Knee extension: 0 deg Muscle Strength: R LE: 4.5/5 L knee extension: 4/5 L knee flexion: 4/5 L hip flexion: 4/5 L hip abduction: 4/5 Palpation: swelling medial femoral condyle Joint Play: increased medially with valgus testing Muscle length: mild decrease left quads, ITB Special Tests: laxity with valgus testing left knee Prior Level of Function: Ambulation: indep with short stride length, mild toe out on left Assistive Devices: none ADLs: Indep INTERVENTIONS: X 30 min therapeutic exercises with written instructions for light stretching, strengthening left LE X 5 min manual therapy: soft tissue mobilization Ice while making handouts PT Assessment: Therapy Diagnosis: left knee pain s/p left TKA weakness, giving way Functional Limitations: LEFS: 45/80 points, 44% impairment Freight Clerk Goals: in 6 weeks Increase strength left LE to 4.5/5 or better to improve endurance and abolish giving way Walk with equal stride length and step time. Ascend/descend steps with reciprocal pattern without increased left knee pain. Home program in place 0-2/10 pain with pt able to manage symptoms independently Rehab Potential: good Plan: PT 1-2x/week x 6 weeks Treatment: therapeutic exercises, balance and proprioceptive training, manual therapy as needed, modalties as needed for pain and inflammation: ice I hereby deem this POC medically necessary. Please sign below and fax back to the number below. Physician Signature: Date: documented in this encounterEllett Memorial [id number] History of Present illness Narrative* Griselda Ortiz, PT - 12/11/2024 3:30 PM EDT Images from the original note were not included. 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 No, Rigging Slinger also. Has seen Dr. Romano lately for left knee pain. Pt states she should be getting prescription forthis. Precautions: lumbar fusion L5-S1, cardiac loop recorder: NO E-STIM. Rheumatoid arthritis Subjective Mechanism of injury: S/p lumbar spinal fusion 10-15 years ago, then fell on porch 2 years ago and fractured L3. Treated by Dr. Johnson with cement injection. Continues to have numbness and tingling and muscle spasms left leg. Also left knee giving way. Neck pain left more than right through shoulders,worsens through day Back pain worsens with stand, walk, lifting. Pain disturbs sleep. Neck pain worse with reading, sleeping, driving. Pain level: 5/10, has headaches Progress: no change Pain radiates: neck to shoulders Timing of pain: constant Numbness/tingling: yes Imaging: X-ray: 11/27/24: Mild to moderate L3 superior endplate compression fractures status post vertebral body cement position.Remaining vertebral body heights are preserved. There is grade 1 anterolisthesis L4 on L5. There is minimal retrolisthesis L1 on L2. Moderate to severe L4-L5 degenerative disc disease. X-ray cervical spine 11/27/24: Vertebral body heights are maintained. There is mild anterolisthesis C3 on C4. Mild C3-C4 and mild to moderate C5-C6 and C6-C7 degenerative disc disease. Prevertebral soft tissues are normal. Objective Posture / Appearance: no lateral shift Lumbar AROM: flexion: fingertips to ankles, no pain extension: not assessed side bend: 25% decrease bilaterally Cervical AROM: Flexion: 30 deg Ext: 55 deg L sidebend: 20 deg R sidebend: 30 deg L rotation: 65 deg R rotation: 65 deg Shoulder ROM: WNL bilaterally Muscle Strength: R LE: 5/5 L knee extension: 4/5 L knee flexion: 4/5 L hip flexion: 4/5 L hip abduction: 4/5 UE: test Posture: increased lumbar lordosis Palpation: sore lower cervical spine, C3-4. , L4 Joint Play: increased L4, decreased left SI. Muscle length: ITB: ok, decreased left quads Special Tests: Negative SLR test bilaterally. Negative hip scour and MEGHAN bilaterally. Positive median nerve stretch test on right, negative on left. Negative Spurlings compression/distraction. Prior Level of Function: Ambulation: Indep Assistive Devices: none ADLs: Indep INTERVENTIONS: X 20 minutes of manual therapy cervical spine: SOR, manual traction, neural mobes. X 15 minutes of therapeutic exercises lumbar: flexion, stabes, flexibility. Neck: assist with headaches, initiated stretching ex. PT Assessment: Therapy Diagnosis: lumbar radiculopathy with history of lumbar fusion, cement of compression fracture L3, cervical spondylosis, headaches Functional Limitations: Back Index: 18/50 points, Neck Index: 25/50 points, 50% impairment Freight Clerk Goals: in 6 weeks Decrease headache pain 50% in 2-3 weeks Pt able to stabilize lumbar spine with UE and LE exercises Normalize intersegmental mobility cervical and thoracic spine Home program in place 0-2/10 pain with pt able to manage indep Assessment: initiated lumbar flexion and stabilization program. No increase in pain with new exercises. Manual therapy completed to address neck and back pain. Plan: PT 1x /week neck and back. Pt to be evaluated for knee pain next session. documented in this encounterEllett Memorial [id number] History of Present illness Narrative* Griselda Ortiz, PT - 12/07/2024 11:00 AM EDT Images from the original note were not included. Time In: 11:05 am Time Out: 12:00 pm Supervised Time: 55 min Total Time: 55 min Evaluation Time: 30 min Visit Number: visits, no co-pay, no auth Chief Complaint: M47.812: Spondylosis without myelopathy or radiculopathy cervical regions R51.9: Headache, unspecified Z98.1: Arthrodesis status M54.17: Radiculopathy lumbar region Sees Dr. No, Rigging Slinger also. Has seen Dr. Romano lately for left knee pain. Pt states she should be getting prescription forthis. Precautions: lumbar fusion L5-S1, cardiac loop recorder: NO E-STIM Subjective Mechanism of injury: S/p lumbar spinal fusion 10-15 years ago, then fell on porch and fractured lowback 2 years ago[address] Treated by Dr. Johnson with cement injection. Continues to have numbness and tingling and muscle spasms left leg. Also left knee giving way. Neck pain left more than right through shoulders, worsens thru day Location of Symptoms: Neck and low back Pain level: 5/10, has headaches What increases symptoms: Low back: stand, walk, lift pain disturbs sleep. Neck: reading, sleeping, driving What decreases symptoms: position change, muscle r Pain radiates: neck to shoulders Timing of pain: constant Numbness/tingling: hes Imaging: X-ray: 11/27/24: Mild to moderate L3 superior endplate compression fractures status post vertebral body cement position.Remaining vertebral body heights are preserved. There is grade 1 anterolisthesis L4 on L5. There is minimal retrolisthesis L1 on L2. Moderate to severe L4-L5 degenerative disc disease. X-ray cervical spine 11/27/24: Vertebral body heights are maintained. There is mild anterolisthesis C3 on C4. Mild C3-C4 and mild to moderate C5-C6 and C6-C7 degenerative disc disease. Prevertebral soft tissues are normal. Objective Posture / Appearance: no lateral shift Lumbar AROM: flexion: fingertips to ankles, no pain extension: not assessed side bend: 25% decrease bilaterally Cervical AROM: Flexion: 30 deg Ext: 55 deg L sidebend: 20 deg R sidebend: 30 deg L rotation: 65 deg R rotation: 65 deg Shoulder ROM: WNL bilaterally Muscle Strength: R LE: 5/5 L knee extension: 4/5 L knee flexion: 4/5 L hip flexion: 4/5 L hip abduction: 4/5 UE: test Posture: increased lumbar lordosis Palpation: sore lower cervical spine, C3-4. , L4 Joint Play: increased L4, decreased left SI. Muscle length: ITB: ok, decreased left quads Special Tests: Negative SLR test bilaterally. Negative hip scour and MEGHAN bilaterally. Positive median nerve stretch test on right, negative on left. Negative Spurlings compression/distraction. Prior Level of Function: Ambulation: Indep Assistive Devices: none ADLs: Indep INTERVENTIONS: X 15 minutes of manual therapy cervical spine: SOR, manual traction, neural mobes. X 10 minutes of therapeutic exercises lumbar: flexion, stabes, flexibility. Neck: assist with headaches, initiated stretching ex. PT Assessment: Therapy Diagnosis: lumbar radiculopathy with history of lumbar fusion L5S1, cement of compression fracture L3, cervical spondylosis, headaches Functional Limitations: Back Index: 18/50 points, Neck Index: 25/50 points Intermediate Goals: in 6 weeks Decrease headache pain 50% in 2-3 weeks Pt able to stabilize lumbar spine with UE and LE exercises Normalize intersegmental mobility cervical and thoracic spine Home program in place 0-2/10 pain with pt able to manage indep Rehab Potential: good Plan: PT 2x/week x 6 weeks Treatment: manual therapy therapeutic exercises, neuromuscular re-ed, modalities as needed : ice, heat, e-stim, DN, IASTM I hereby deem this POC medically necessary. Please sign below and fax back to the number below. Physician Signature: Date: documented in this encounterEllett Memorial [id number] Telephone encounter Note* Telephone Encounter - Kellee Crook RN - 11/30/2024 12:06 PM EDT I called and spoke with the patient. Obtained the locations she wanted the PT orders faxed to and I located the fax number PT orders faxed to [facility] fax received. [facility]08-29-2025 Miscellaneous Notes* Telephone Encounter - Kellee Crook RN - 11/30/2024 12:06 PM EDT I called and spoke with the patient. Obtained the locations she wanted the PT orders faxed to and I located the fax number PT orders faxed to [facility] fax received. documented in this encounterJoint Township District [facility]08-28-2025 Telephone encounter Note * Telephone Encounter - Ronel Tyler MA - 11/29/2024 10:55 AM EDT Most recent Rheumatology visit: 09/10/2024 (with Chris No) Last Bone Density on file: 11/26/2021 Rheumatology Care Team: None on file Recent Office Visits - This Specialty 09/10/2024 Rheumatoid arthritis involving multiple sites with positive rheumatoid factor (HCC) Rheumatology Chris No MD 06/07/2024 Rheumatoid arthritis involving multiple sites with positive rheumatoid factor (HCC) Rheumatology Chris No MD 03/08/2024 Rheumatoid arthritis involving multiple sites with positive rheumatoid factor (HCC) Rheumatology Chris No MD Upcoming Rheumatology Appointments - Next 365 Days Visit Type Date Time Department [facility] 12/19/2024 11:20 AM [facility] Last Ophthalmology Check for Plaquenil (Hydroxychloroquine) Last OCT Macula Exam No resulted procedures found. Last Visual Field Exam No resulted procedures found. CBC: None on file in the last 6 months Vitamin D: None on file in the last 6 months LFT: None on file in the last 6 months Hepatic Function: Creatinine: None on file in the last 6 months ESR/CRP: None on file in the last 6 months Uric Acid: None on file in the last 6 months Open Standing (Multiple Instance) Lab Orders None Open Future (Single Instance) Lab Orders Expected Expires Ordered VITAMIN D 25 HYDROXY [SQVITD] 03/04/25 06/03/25 09/24/24 Auth. provider: Keyshawn Arellano MD Assoc. diagnoses: Malaise and fatigue, Vitamin D deficiency, Abnormal weight gain PTH INTACT [SQPTHI] 03/04/25 06/03/25 09/24/24 Auth. provider: Keyshawn Arellano MD Assoc. diagnoses: Malaise and fatigue, Vitamin D deficiency, Abnormal weight gain CALCIUM, TOTAL [SQCA] 03/04/25 06/03/25 09/24/24 Auth. provider: Keyshawn Arellano MD Assoc. diagnoses: Malaise and fatigue, Vitamin D deficiency, Abnormal weight gain [facility]08-28-2025 Miscellaneous Notes* Telephone Encounter - Ronel Tyler MA - 11/29/2024 10:55 AM EDT Most recent Rheumatology visit: 09/10/2024 (with Chris No) Last Bone Density on file: 11/26/2021 Rheumatology Care Team: None on file Recent Office Visits - This Specialty 09/10/2024 Rheumatoid arthritis involving multiple sites with positive rheumatoid factor (HCC) Rheumatology Chris No MD 06/07/2024 Rheumatoid arthritis involving multiple sites with positive rheumatoid factor (HCC) Rheumatology Chris No MD 03/08/2024 Rheumatoid arthritis involving multiple sites with positive rheumatoid factor (HCC) Rheumatology Chris No MD Upcoming Rheumatology Appointments - Next 365 Days Visit Type Date Time Department [facility] 12/19/2024 11:20 AM [facility] Last Ophthalmology Check for Plaquenil (Hydroxychloroquine) Last OCT Macula Exam No resulted procedures found. Last Visual Field Exam No resulted procedures found. CBC: None on file in the last 6 months Vitamin D: None on file in the last 6 months LFT: None on file in the last 6 months Hepatic Function: Creatinine: None on file in the last 6 months ESR/CRP: None on file in the last 6 months Uric Acid: None on file in the last 6 months Open Standing (Multiple Instance) Lab Orders None Open Future (Single Instance) Lab Orders Expected Expires Ordered VITAMIN D 25 HYDROXY [SQVITD] 03/04/25 06/03/25 09/24/24 Auth. provider: Keyshawn Arellano MD Assoc. diagnoses: Malaise and fatigue, Vitamin D deficiency, Abnormal weight gain PTH INTACT [SQPTHI] 03/04/25 06/03/25 09/24/24 Auth. provider: Keyshawn Arellano MD Assoc. diagnoses: Malaise and fatigue, Vitamin D deficiency, Abnormal weight gain CALCIUM, TOTAL [SQCA] 03/04/25 06/03/25 09/24/24 Auth. provider: Keyshawn Arellano MD Assoc. diagnoses: Malaise and fatigue, Vitamin D deficiency, Abnormal weight gain documented in this encounterJoint [facility] Telephone encounter Note * Telephone Encounter - Nicki Alfredo - 11/29/2024 9:06 AM EDT C 2-3 and C 3-4 bilateral CATY Maciel [id number] ELSIE BERENGER can schedule in 2 months from now THINNERS DM Spoke to patient. She declined scheduling at this time. [facility]08-28-2025 Miscellaneous Notes* Telephone Encounter - Nicki Alfredo - 11/29/2024 9:06 AM EDT C 2-3 and C 3-4 bilateral CATY Maciel [id number] ELSIE BERENGER can schedule in 2 months from now THINNERS DM Spoke to patient. She declined scheduling at this time. * Telephone Encounter - Nicki Alfredo - 11/28/2024 10:30 AM EDT C 2-3 and C 3-4 bilateral CATY Maciel [id number] ELSIE RESTREPOENGER can schedule in 2 months from now THINNERS DM First attempt to schedule injection. Left detailed voicemail asking patient to return call to surgery coordinator at [phone]. documented in this encounterJoint Township [facility]08-27-2025 History of Present illness Narrative* Rodney Lamb MD - 11/28/2024 2:30 PM EDT Images from the original note were not included. History of present illness 64-year-old female had left total knee replacement in [address] [place] [address] over the last couple months she has been having popping clicking and feeling of instability in that left knee does not recall a specific episode or injury but it seems to be getting worse. She has had some other medical issues over the last couple years but the knee is giving her significant impairment. Denies any fevers or chills d enies any redness or drainage Past medical , Surgical, Family and social history reviewed. Physical exam General: No acute distress and breathing comfortably. Patient is pleasant and cooperative with the examination. Extremity Left knee has well-healed incision no signs of infection full knee extension flexion 120 degrees. There is some anterior posterior laxity in mid flexion and at 90 degrees of flexion no instability varus or valgus. Brisk cap refill compartments are soft calf is nontender Diagnostics Imaging XR lumbar spine 2-3 views Result Date: 11/27/2024 IMPRESSION: Postoperative and degenerative changes as described. 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: PSCB Transcribe Date/Time: Nov 27 2024 7:39P Dictated by : JAMSHID WEBSTER MD This examination was interpreted and the report reviewed and electronically signed by: JAMSHID WEBSTER MD on Nov 27 2024 7:40PM EST XR cervical spine 2-3 views Result Date: 11/27/2024 IMPRESSION: Degenerative changes as described. 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: PSCB Transcribe Date/Time: Nov 27 2024 7:38P Dictated by : JAMSHID WEBSTER MD This examination was interpreted and the report reviewed and electronically signed by: JAMSHID WEBSTER MD on Nov 27 2024 7:38PM EST Cardiology, Vascular, and Other Imaging XR knee left 3 views Result Date: 11/28/2024 Interpreted By: Rodney Lamb, STUDY: XR KNEE LEFT 3 VIEWS; 11/28/2024 2:45 pm INDICATION: Signs/Symptoms:pain. ACCESSION NUMBER(S): [id number] ORDERING CLINICIAN: RODNEY LAMB FINDINGS: Left knee three views. Status post total knee replacement slight posterior slip subluxation of the femur on the tibia on the lateral x-ray which is a change from previous x-ray no evidence of fracture dislocation or other bony abnormality Signed by: Rodney Lamb 11/28/2024 3:31 PM Dictation workstation: [id number] XR lumbar spine 2-3 views Result Date: 11/27/2024 * * *Final Report* * * DATE OF EXAM: Nov 27 2024 1:07PM [id number] - XR LUMBAR 3V AP/LAT/L5-S1 / PROCEDURE REASON: multiple diagnoses * * * * Physician Interpretation * * * * EXAMINATION / TECHNIQUE: XR LUMBAR 3V AP/LAT/L5-S1 HISTORY: BACK PAIN History of lumbar fusion Radiculitis, lumbosacral COMPARISON: None RESULT: Counting reference: Lumbosacral junction. For the purposes of this report, L4-5 is considered the level of the iliac crest and assume there are 5 lumbar-type vertebrae. Anatomic variant: None. Status post L5-S1 fusion with intact hardware. Mild to moderate [id number] endplate compression fractures status post vertebral body cement position. Remaining vertebral body heights are preserved. There is grade 1 anterolisthesis L4 on L5. There is minimal retrolisthesis L1 on L2. Moderate to severe L4-L5 degenerative disc disease. IMPRESSION: Postoperative and degenerative changes as described. 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: JUSTICE Transcribe Date/Time: Nov 27 2024 7:39P Dictated by : JAMSHID WEBSTER MD This examination was interpreted and the report reviewed and electronically signed by: JAMSHID WEBSTER MD on Nov 27 2024 7:40PM EST XR LUMBAR 3V AP/LAT/L5-S1 Result Date: 11/27/2024 * * *Final Report* * * DATE OF EXAM: Nov 27 2024 1:07PM [id number] - XR LUMBAR 3V AP/LAT/L5-S1 / PROCEDURE REASON: multiple diagnoses * * * * Physician Interpretation * * * * EXAMINATION / TECHNIQUE: XR LUMBAR 3V AP/LAT/L5-S1 HISTORY: BACK PAIN History of lumbar fusion Radiculitis, lumbosacral COMPARISON: None RESULT: Counting reference: Lumbosacral junction. For the purposes of this report, L4-5 is considered the level of the iliac crest and assume there are 5 lumbar-type vertebrae. Anatomic variant: None. Status post L5-S1 fusion with intact hardware. Mild to moderate [id number] endplate compression fractures status post vertebral body cement position. Remaining vertebral body heights are preserved. There is grade 1 anterolisthesis L4 on L5. There is minimal retrolisthesis L1 on L2. Moderate to severe L4-L5 degenerative disc disease. IMPRESSION: Postoperative and degenerative changes as described. 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: PSCB Transcribe Date/Time: Nov 27 2024 7:39P Dictated by : JAMSHID WEBSTER MD This examination was interpreted and the report reviewed and electronically signed by: JAMSHID WEBSTER MD on Nov 27 2024 7:40PM EST [id number]^ACN XR cervical spine 2-3 views Result Date: 11/27/2024 * * *Final Report* * * DATE OF EXAM: Nov 27 2024 1:07PM [id number] - XR CERVICAL 3V AP/LAT/ODON / PROCEDURE REASON: multiple diagnoses * * * * Physician Interpretation * * * * EXAMINATION / TECHNIQUE: XR CERVICAL 3V AP/LAT/ODON HISTORY: BACK PAIN Facet arthropathy, cervical Recurrent occipital headache COMPARISON: MRI cervical spine dated 09/18/2024. RESULT: Counting reference: Craniocervical junction. Anatomic Variants: None. Vertebral body heights are maintained. There is mild anterolisthesis C3 on C4. Mild C3-C4 and mild to moderate C5-C6 and C6-C7 degenerative disc disease. Prevertebral soft tissues are normal. IMPRESSION: Degenerative changes as described. 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: [facility] Transcribe Date/Time: Nov 27 2024 7:38P Dictated by : JAMSHID WEBSTER MD This examination was interpreted and the report reviewed and electronically signed by: JAMSHID WEBSTER MD on Nov 27 2024 7:38PM EST XR CERVICAL 3V AP/LAT/ODON Result Date: 11/27/2024 * * *Final Report* * * DATE OF EXAM: Nov 27 2024 1:07PM [id number] - XR CERVICAL 3V AP/LAT/ODON / PROCEDURE REASON: multiple diagnoses * * * * Physician Interpretation * * * * EXAMINATION / TECHNIQUE: XR CERVICAL 3V AP/LAT/ODON HISTORY: BACK PAIN Facet arthropathy, cervical Recurrent occipital headache COMPARISON: MRI cervical spine dated 09/18/2024. RESULT: Counting reference: Craniocervical junction. Anatomic Variants: None. Vertebral body heights are maintained. There is mild anterolisthesis C3 on C4. Mild C3-C4 and mild to moderate C5-C6 and C6-C7 degenerative disc disease. Prevertebral soft tissues are normal. IMPRESSION: Degenerative changes as described. 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 The natural history of the condition and its associated treatment alternatives including surgical and nonsurgical options were discussed with the patient at length. 2. Comparing her old x-rays to her new x-rays there is some subluxation of her femur which may indicate that she is PCL deficient she may have torn her PCL or it may have just degenerative however she is having instability in her knee. She has a cruciate retaining knee replacement. Plan is for a knee brace and physical therapy to work on quad and hamstring strengthening. If she has persistent instability there is a possibility we would need to convert this to a more constrained knee replacement. 3. [ ] 4. All of the patient's questions were answered. Orders Placed This Encounter Knee Brace, Hinged XR knee left 3 views Referral to Physical Therapy This note was prepared using voice recognition software. The details of this note are correct and have been reviewed, and corrected to the best of my ability. Some grammatical areas may persist related to the [employer] software Rodney Lamb MD Senior Attending Physician [facility] [place] [facility] Work Phone: [phone] 165-977508-27-2025 Telephone encounter Note* Telephone Encounter - Nicki Alfredo - 11/28/2024 10:30 AM EDT C 2-3 and C 3-4 bilateral CATY Maciel [id number] ELSIE MCGOWAN can schedule in 2 months from now [facility] First attempt to schedule injection. Left detailed voicemail asking patient to return call to surgery coordinator at [phone]. [facility]08-26-2025 History of Present illness Narrative* Anh Chacko RT(Carey) - 11/27/2024 1:00 PM EDT Radiology Service Progress Note PATIENT NAME: Caty Hills DATE OF SERVICE: November 27, 2024 TIME: 1:03 PM PATIENT IDENTITY VERIFICATION COMPLETED USING TWO (2) IDENTIFIERS: Name and Date of confirmedby patient verbally and Name and Date of confirmed by identification band. FALL SCREENING: Has the patient had 2 falls in the last year or 1 fall with injury or currently using an Ambulatory Assistive Device (Walker, Cane, Wheelchair, Crutches, etc.)? Emergency Room Patient: Screened in ED PATIENT GENDER DATA: Assigned female at . status: : No status:NO. PATIENT RELEVANT IMPLANT DATA REVIEWED: Not Applicable PATIENT PRESENTS WITH AN IMPLANTABLE OR ATTACHED MANUFACTURING INDUSTRIAL ENGINEER: No RADIOLOGY DEPARTMENT: General X-ray: Exam(s) Completed: Spine X-Ray(s): Cervical AP / LAT / ODONT and Lumbar AP / LAT / L5-S1 PERIPHERAL IV DATA: Not applicable SIGNED BY: RT Suni(Carey) November 27, 2024 1:03 PM documented in this encounterJoint [facility]25 NoteHNO ID: [id number] Author: ANH CHACKO RT (R) Service: Radiology Author Type: Technologist Type: Progress Notes Filed: 11/27/2024 13:04 Note Text: Radiology Service Progress Note PATIENT NAME: Caty Hills DATE OF SERVICE: November 27, 2024 TIME: 1:03 PM PATIENT IDENTITY VERIFICATION COMPLETED USING TWO (2) IDENTIFIERS: Name and Date of confirmed by patient verbally and Name and Date of confirmed by identification band. FALL SCREENING: Has the patient had 2 falls in the last year or 1 fall with injury or currently using an Ambulatory Assistive Device (Walker, Cane, Wheelchair, Crutches, etc.)? Emergency Room Patient: Screened in ED PATIENT GENDER DATA: Assigned female at . status: : No status: NO. PATIENT RELEVANT IMPLANT DATA REVIEWED: Not Applicable PATIENT PRESENTS WITH AN IMPLANTABLE OR ATTACHED MANUFACTURING INDUSTRIAL ENGINEER: No RADIOLOGY DEPARTMENT: General X-ray: Exam(s) Completed: Spine X-Ray(s): Cervical AP / LAT / ODONT and Lumbar AP / LAT / L5-S1 PERIPHERAL IV DATA: Not applicable SIGNED BY: Anh RT Roman(R) November 27, 2024 1:03 [id number] History of Present illness Narrative* Josh Mcgowan MD - 11/27/2024 11:00 AM EDT Images from the original note were not included. Ms. Hills is here today at the request of Chris No for my opinion regarding neck pain My final recommendation will be communicated back to the requesting physician by way of shared medical record or letter. The patient is a 64-year-old female with rheumatoid arthritis and tachycardia with a loop recorder,presenting for evaluation and management of chronic neck and low back pain. Patient reports the date of onset of symptoms as 1 year and describes the location of the pain as posterior neck. The pain is chronic, radiating, and rated as 7, radiates up head. Patient reports that neck pain is increased by pain is constant and relieved by prednisone. HPI: Neck Pain: - Onset last year. - Pain radiates down through shoulders, worse on the left side. - Tolerable in the morning, worsens throughout the day, leading to severe headaches by evening. - Pain is bilateral but more pronounced on the left side. - Recent MRI of the neck performed by Dr. No. - Caty is taking Prednisone 5 mg PRN for relief; prescribed by Dr. No. - Denies any issues with neck positions or range of motion. Low Back Pain: - Chronic, intermittent pain for years; worsens during flare-ups with inflammation. - Caty underwent spinal fusion surgery with a cage and three screws in [place] by Dr. Marcelo approximately 10-15 years ago; provided some pain relief. - Fractured lower back 2 years ago after a fall on the front porch; treated by Dr. Jerry Johnson with cement injection. - Experiences numbness and muscle spasms in the left leg, especially at night. - Pain radiates from the knee down to the hip on the left side. - Pain is alleviated by standing and walking; worsens with prolonged sitting. - Uses specific stretches and exercises for relief. - Denies recent physical therapy or chiropractic treatment. - No recent imaging of the lower back. Rheumatoid Arthritis: - Managed by Dr. No. - Caty is taking Rinvoq for several years; previously tried other biologics but found Rinvoq most tolerable. Tachycardia: - Caty has a loop recorder implanted. - Underwent an electrophysiology study in [place], which was inconclusive. OTHER BACK PAIN SYMPTOMS: NIGHT PAIN: No PARESTHESIA: No POOR SLEEP: yes ACTIVITY LIMITATIONS: ADLs PREVIOUS TREATMENTS: None . OCCUPATIONAL HISTORY: [employer] HISTORY OF TRAUMA/OVERUSE OF AREA: No REVIEW OF SYSTEMS: GENERAL: Negative for malaise, significant weight loss and fever MEDICAL HISTORY: HTN,RA PAST MEDICAL HISTORY Diagnosis Date Anxiety Class 2 obesity in adult Heart palpitations Hypertension Hypokalemia NONE Rheumatoid arthritis (HCC) Seizure-like activity (HCC) SVT (supraventricular tachycardia) (HCC) SVT (supraventricular tachycardia) (HCC) 04/18/2024 Traumatic brain injury (HCC) slipped on ice and hit head on concrete and passed out for 2 min in 2009 PAST SURGICAL HISTORY Procedure Laterality Date ANESTHESIA VAGINAL HYSTERECTOMY INCL BIOPSY 1996 ENDOMETRIOSIS, PAIN , CYSTS BACK SURGERY HX 2013 spinal fusion with screws CARPAL TUNNEL RIGHT WRIST 1996 RIGHT AND LEFT WRIST CONIZATION CERVIX W/WO D&C RPR KNIFE/LASER 1994 DYSPLASIA DILATION & CURETTAGE DX&/THER NONOBSTETRIC Dilation & curettage DILATION & CURETTAGE DX&/THER NONOBSTETRIC Dilation & curettage KNEE SURGERY HX PAST SURGICAL HISTORY OF 1978 REMOVAL OF BENIGN CYST RIGHT NECK EXAMINATION: [id number]: Scoliosis: No Pelvic Tilt: No LATERAL: Cervical Lordosis: No Thoracic Kyphosis: No Lumbar Lordosis: No RANGE OF MOTION CERVICAL: Flexion: Not Limited Extension: Limited Rotation L: Not Limited Rotation R: Not Limited Foraminal Compresssion Maneuvers: Negative Spurling's test: Negative Gait: Normal Toe Walking: Normal Heel Walking: Normal REFLEXES R L Biceps (C6): 1-2+ 1-2+ Triceps (C7): 1-2+ 1-2+ Brachioradiolis (C6): 1-2+ 1-2+ Ankle (S1): 2+ 2+ Knee (L4): 2+ 2+ STRENGTH (0-5): R L Deltoid (AB:C5,6): 5 5 Biceps (Flex:C5,6): 5 5 Wrist Ext.(C6,7): 5 5 Interrosei (C8,T1): 5 5 PSOAS (L2,3): 5 5 Gluteus (L5,S1,2): 5 5 Quadriceps (L3,4): 5 5 EHL (L5): 5 5 Soleus (S1): 5 5 Tinel's - Carpal Tunnel: Negative Tinel's - Cubital Tunnel: Negative Phalen's Test: Negative Elbow Flexion Test: Negative SLR: Seated - Right Negative, Left Negative Babinski Negative Negative Gan's sign: Negative FEDERICO TEST 1) Tenderness: Appropriate 2) Simulation/Axial Loading/ROT: Appropriate 3) Distraction: Seated SLR: Appropriate 4) Reqional Disturbances: Appropriate 5) Overreaction: Appropriate PHYSICAL EXAMINATION: GENERAL APPEARANCE: Well appearing, in no acute distress SKIN: Skin color, texture, turgor normal. No rashes or lesions. HEAD: Normocephalic. No masses, lesions, tenderness or abnormalities EYES: Conjunctivae/corneas clear. Pupils are equally round and reactive to light. Extraocular movements are intact. NECK: Neck supple. EXTREMITIES: Extremities normal. No deformities, edema, or skin discoloration. Good capillary refill. PULSES: Normal lower extremity pulses. NEURO: Gait normal. Reflexes normal and symmetric. Sensation grossly intact. X-RAYS: MRI CERVICAL SPINE [facility] 09/18/2024 RESULT: Counting reference: Craniocervical junction. Anatomic Variants: None. Localizer images: No additional findings. Alignment: Degenerative anterolisthesis of C3 on C4 measuring approximately 6 mm. Slight reversal of the normal cervical lordosis centered at C4. Craniocervical junction: Craniocervical junction is normal. Cord: No evidence of spinal cord edema or myelomalacia. Bone marrow signal/fracture: No evidence of pathologic marrow infiltration. No evidence of prior fracture. Cervical soft tissues: The paraspinal soft tissues are within normal limits. C2-C3: Mild degenerative disc disease as well as moderate to advanced right and mild left degenerative facet disease resulting in mild right foraminal stenosis and no substantial canal stenosis. C3-C4: Moderate degenerative disc disease with 6 mm anterolisthesis of C3 on C4 with posterior disc bulge and disc uncovering, mild bilateral uncovertebral spurring, as well as advanced right and mild left degenerative facet disease resulting in mild canal stenosis as well as moderate right greater than left foraminal stenosis. C4-C5: Mild degenerative disc disease as well as moderate right and mild to moderate left degenerative facet disease and minimal uncovertebral spurring with no substantial canal or foraminal stenosis. C5-C6: Mild to moderate degenerative disc disease with bilateral uncovertebral spurring as well as moderate left and mild right degenerative facet disease resulting in moderate bilateral foraminal stenosis and no substantial canal stenosis. C6-C7: Moderate degenerative disc disease with small posterior disc osteophyte complex formation, bilateral uncovertebral spurring, and mild bilateral degenerative facet disease and ligamentum flavum thickening resulting in mild canal stenosis as well as moderate bilateral foraminal stenosis. C7-T1: Mild degenerative disc disease as well as mild to moderate bilateral degenerative facet disease with no substantial canal or foraminal stenosis. 09/22/2024 PROMIS CAT Pain Interference PROMIS Adult Short Form-Global Health Score (Mental) 38.8 (Fair) IMPRESSION: 1. Facet arthropathy, cervical (M47.812) 2. Recurrent occipital headache (R51.9) - Chronic cervical facet arthropathy with daily axial neck pain radiating to the head, worse on theleft, consistent with MRI findings of facet joint arthritis. - Discussed treatment options including physical therapy, animal care giver, and diagnostic facet joint injections with bupivacaine. - Start physical therapy focused on cervical stabilization and core strengthening. - Discussed acupuncture as an adjunct therapy; patient expressed interest. - Educated on the nature of facet arthropathy and rationale for conservative management prior to considering injections. - Plan for diagnostic facet joint blocks if no improvement after 4-6 sessions of PT and acupuncture. 3. History of lumbar fusion (Z98.1) 4. 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 Radiculitis, lumbosacral (M54.17) - Chronic low back pain with history of lumbar fusion (cage and 3 screws) and vertebral fracture treated with vertebroplasty; symptoms include left-sided radicular pain, numbness, and muscle spasms. - No recent lumbar imaging available; prior MRI reportedly showed issues with the fusion hardware. - Order lumbar spine X-ray. - Start physical therapy for lumbar core strengthening. - Plan for lumbar MRI if no improvement after 4-6 sessions of PT. 6. Rheumatoid arthritis, involving unspecified site, unspecified whether rheumatoid factor present (HCC) (M06.9) - Under care of Dr. Avila; currently managed with Rinvoq. - Uses prednisone 5 mg PRN for symptom relief, but prefers to avoid daily use. Hx of lumbar sanchez and fusion / 2014 ([facility]arcia) - equivocal results . Has continued with chiefly axial lumbar pain. She fell and fractured my low back - fracture - 2 years ago. Had kyphoplasty (Dr Johnson / [place]). Left hamstring tear 2 years ago - required surgery. Bilateral LE numbness, cramping at night Sx's worse on the LEFT Reports standing and walking - better than prolonged sitting. Cervical pain - axial and to shoulders L>R. Occipital radiation of pain to headache - occurs daily x 2 months. Cervical facet OA and C 3 on C 4 degenerative listhesis. MRI CERV: 09/18/24 Multilevel degenerative changes resulting in varying degrees of foraminal stenosis, most pronounced and moderate bilaterally at C3-C4, right greater than left, as well as moderate bilaterally at C5-C6 and C6-C7. No significant canal stenosis or evidence of spinal cord signal abnormality. No recent PT or DC adjustments. Hx of tachycardia (Loop recorder) No DM Non smoker (quit 22 years) No hx o Ca Weight stable BMD - T-1.3 RA on biologicals PLAN: We discussed your neck pain: - Your neck pain appears to be related to arthritis in the facet joints, as seen on your recent MRI. This arthritis may be causing the pain that radiates to your head and shoulders, as well as your daily headaches. - We will start with physical therapy focused on cervical stabilization to help manage your neck pain. You will need to complete at least 4 sessions to evaluate its effectiveness. Physical therapy will be scheduled at the [place] location. - You may also try acupuncture as an additional treatment option to help with your symptoms. - If physical therapy and acupuncture do not provide sufficient relief, we can consider diagnostic facet joint injections in the future. These injections would help determine if the facet joints are the source of your pain and could guide further treatment. We discussed your lower back pain: - Your history includes a lumbar fusion with a cage and screws, as well as a vertebral fracture treated with cement. Given the time since your fusion, there may be issues developing above the level of the fusion. - To evaluate your lower back, we will start with physical therapy focused on lumbar core strengthening. This will also be scheduled at the [place] location. - Depending on your progress with physical therapy, we may proceed with imaging, such as an x-ray or MRI, to further assess your lower back. We discussed your leg symptoms: - You reported numbness, muscle spasms, and pain in your left leg, which worsen when sitting or lying down. These symptoms may be related to your lower back issues. - Physical therapy may help alleviate these symptoms. Please monitor your progress and let us know if the symptoms persist or worsen. Next steps: - Begin physical therapy for both your neck and lower back at the [place] location. Complete at least 4 sessions and monitor your response. - Consider acupuncture as an additional treatment option. - After completing physical therapy, if your symptoms persist, we will reassess and consider further imaging or diagnostic injections ( C2-3 and C 3-4 facet mnbb) . - Please use [email or web address] to keep me updated on your progress with physical therapy and acupuncture. If these treatments are not effective, we will discuss the next steps. You do not need to schedule the MRI (lumbar) at this time. If imaging becomes necessary, the orderswill be available, and you can proceed to the radiology department. If you have any questions or concerns, please reach out through [email or web address]. Suggest: - PT : cervical stabilization and lumbar DLS - Acupuncture - address cervical issues - consider bilateral C 2-3 / C 3-4 facet blocks - XR cervical and lumbar - if sx's persist following the above proceed with lumbar MRI Josh Mcgowan MD documented in [facility]Joint [facility] NoteHNO ID: [id number] Author: JOSH MCGOWAN MD Service: ? Author Type: Physician Type: Progress Notes Filed: 11/30/2024 14:43 Note Text: Ms. Hills is here today at the request of Chris No for my opinion regarding neck pain My final recommendation will be communicated back to the requesting physician by way of shared medical record or letter. The patient is a 64-year-old female with rheumatoid arthritis and tachycardia with a loop recorder, presenting for evaluation and management of chronic neck and low back pain. Patient reports the date of onset of symptoms as 1 year and describes the location of the pain as posterior neck. The pain is chronic, radiating, and rated as 7, radiates up head. Patient reports that neck pain is increased by pain is constant and relieved by prednisone. HPI: Neck Pain: - Onset last year. - Pain radiates down through shoulders, worse on the left side. - Tolerable in the morning, worsens throughout the day, leading to severe headaches by evening. - Pain is bilateral but more pronounced on the left side. - Recent MRI of the neck performed by Dr. No. - Caty is taking Prednisone 5 mg PRN for relief; prescribed by Dr. No. - Denies any issues with neck positions or range of motion. Low Back Pain: - Chronic, intermittent pain for years; worsens during flare-ups with inflammation. - Caty underwent spinal fusion surgery with a cage and three screws in [place] by Dr. Marcelo approximately 10-15 years ago; provided some pain relief. - Fractured lower back 2 years ago after a fall on the front porch; treated by Dr. Jerry Johnson with cement injection. - Experiences numbness and muscle spasms in the left leg, especially at night. - Pain radiates from the knee down to the hip on the left side. - Pain is alleviated by standing and walking; worsens with prolonged sitting. - Uses specific stretches and exercises for relief. - Denies recent physical therapy or chiropractic treatment. - No recent imaging of the lower back. Rheumatoid Arthritis: - Managed by Dr. No. - Caty is taking Rinvoq for several years; previously tried other biologics but found Rinvoq most tolerable. Tachycardia: - Caty has a loop recorder implanted. - Underwent an electrophysiology study in [place], which was inconclusive. OTHER BACK PAIN SYMPTOMS: NIGHT PAIN: No PARESTHESIA: No POOR SLEEP: yes ACTIVITY LIMITATIONS: ADLs PREVIOUS TREATMENTS: None . OCCUPATIONAL HISTORY: [employer] HISTORY OF TRAUMA/OVERUSE OF AREA: No REVIEW OF SYSTEMS: GENERAL: Negative for malaise, significant weight loss and fever MEDICAL HISTORY: HTN,RA PAST MEDICAL HISTORY Diagnosis Date Anxiety Class 2 obesity in adult Heart palpitations Hypertension Hypokalemia NONE Rheumatoid arthritis (HCC) Seizure-like activity (HCC) SVT (supraventricular tachycardia) (HCC) SVT (supraventricular tachycardia) (HCC) 04/18/2024 Traumatic brain injury (HCC) slipped on ice and hit head on concrete and passed out for 2 min in 2009 PAST SURGICAL HISTORY Procedure Laterality Date ANESTHESIA VAGINAL HYSTERECTOMY INCL BIOPSY 1996 ENDOMETRIOSIS, PAIN , CYSTS BACK SURGERY HX 2014 spinal fusion with screws CARPAL TUNNEL RIGHT WRIST 1996 RIGHT AND LEFT WRIST CONIZATION CERVIX W/WO DANDC RPR KNIFE/LASER 1994 DYSPLASIA DILATION AND CURETTAGE DXAND/THER NONOBSTETRIC Dilation AND curettage DILATION AND CURETTAGE DXAND/THER NONOBSTETRIC Dilation AND curettage KNEE SURGERY HX PAST SURGICAL HISTORY OF 1978 REMOVAL OF BENIGN CYST RIGHT NECK EXAMINATION: [id number]: Scoliosis: No Pelvic Tilt: No LATERAL: Cervical Lordosis: No Thoracic Kyphosis: No Lumbar Lordosis: No RANGE OF MOTION CERVICAL: Flexion: Not Limited Extension: Limited Rotation L: Not Limited Rotation R: Not Limited Foraminal Compresssion Maneuvers: Negative Spurling's test: Negative Gait: Normal Toe Walking: Normal Heel Walking: Normal REFLEXES R L Biceps (C6): 1-2+ 1-2+ Triceps (C7): 1-2+ 1-2+ Brachioradiolis (C6): 1-2+ 1-2+ Ankle (S1): 2+ 2+ Knee (L4): 2+ 2+ STRENGTH (0-5): R L Deltoid (AB:C5,6): 5 5 Biceps (Flex:C5,6): 5 5 Wrist Ext.(C6,7): 5 5 Interrosei (C8,T1): 5 5 PSOAS (L2,3): 5 5 Gluteus (L5,S1,2): 5 5 Quadriceps (L3,4): 5 5 EHL (L5): 5 5 Soleus (S1): 5 5 Tinel's - Carpal Tunnel: Negative Tinel's - Cubital Tunnel: Negative Phalen's Test: Negative Elbow Flexion Test: Negative SLR: Seated - Right Negative, Left Negative Babinski Negative Negative Gan's sign: Negative FEDERICO TEST 1) Tenderness: Appropriate 2) Simulation/Axial Loading/ROT: Appropriate 3) Distraction: Seated SLR: Appropriate 4) Reqional Disturbances: Appropriate 5) Overreaction: Appropriate PHYSICAL EXAMINATION: GENERAL APPEARANCE: Well appearing, in no acute distress SKIN: Skin color, texture, turgor normal. No rash (more content not included)... [facility]07-18-2025 Telephone encounter Note* Telephone Encounter - Ronel TylerTAY - 10/19/2024 8:53 AM EDT Images from the original note were not included. Most recent Rheumatology visit: 09/10/2024 (with Chris No) Last Bone Density on file: 11/26/2021 Rheumatology Care Team: None on file Recent Office Visits - This Specialty 09/10/2024 Rheumatoid arthritis involving multiple sites with positive rheumatoid factor (HCC) Rheumatology Chris No MD 06/07/2024 Rheumatoid arthritis involving multiple sites with positive rheumatoid factor (HCC) Rheumatology Chris No MD 03/08/2024 Rheumatoid arthritis involving multiple sites with positive rheumatoid factor (HCC) Rheumatology Chris No MD Upcoming Rheumatology Appointments - Next 365 Days Visit Type Date Time Department [facility] 12/19/2024 11:20 AM [facility] Last Ophthalmology Check for Plaquenil (Hydroxychloroquine) Last OCT Macula Exam No resulted procedures found. Last Visual Field Exam No resulted procedures found. CBC: Latest Ref Rng & Units 08/01/2023 03/08/2024 CBC WBC 3.70 - 11.00 k/uL 5.89 6.75 Hemoglobin 11.5 - 15.5 g/dL 12.7 13.8 Hematocrit 36.0 - 46.0 % 38.9 41.0 Platelet Count 150 - 400 k/uL 204 222 Abs Neut (ANC) 1.45 - 7.50 k/uL 2.89 5.36 Abs Lymph 1.00 - 4.00 k/uL 2.21 1.00 Vitamin D: None on file in the last 6 months LFT: Latest Ref Rng & Units 08/01/2023 03/08/2024 CMP Sodium 136 - 144 mmol/L 138 137 Potassium 3.7 - 5.1 mmol/L 4.4 4.7 Chloride 98 - 107 mmol/L 102 102 CO2 22 - 30 mmol/L 25 21 Glucose 74 - 99 mg/dL 91 93 BUN 7 - 21 mg/dL 21 19 Creatinine 0.58 - 0.96 mg/dL 0.75 0.80 Calcium 8.5 - 10.2 mg/dL 9.3 9.4 AST 13 - 35 U/L 18 23 ALT 7 - 38 U/L 15 17 Alkaline Phosphatase 34 - 123 U/L 73 63 Hepatic Function: Creatinine: None on file in the last 6 months ESR/CRP: None on file in the last 6 months Uric Acid: None on file in the last 6 months Open Standing (Multiple Instance) Lab Orders None Open Future (Single Instance) Lab Orders Expected Expires Ordered VITAMIN D 25 HYDROXY [SQVITD] 03/04/25 06/03/25 09/24/24 Auth. provider: Keyshawn Arellano MD Assoc. diagnoses: Malaise and fatigue, Vitamin D deficiency, Abnormal weight gain PTH INTACT [SQPTHI] 03/04/25 06/03/25 09/24/24 Auth. provider: Keyshawn Arellano MD Assoc. diagnoses: Malaise and fatigue, Vitamin D deficiency, Abnormal weight gain CALCIUM, TOTAL [SQCA] 03/04/25 06/03/25 09/24/24 Auth. provider: Keyshawn Arellano MD Assoc. diagnoses: Malaise and fatigue, Vitamin D deficiency, Abnormal weight gain [facility]07-18-2025 Miscellaneous Notes* Telephone Encounter - Ronel Tyler MA - 10/19/2024 8:53 AM EDT Images from the original note were not included. Most recent Rheumatology visit: 09/10/2024 (with Chris No) Last Bone Density on file: 11/26/2021 Rheumatology Care Team: None on file Recent Office Visits - This Specialty 09/10/2024 Rheumatoid arthritis involving multiple sites with positive rheumatoid factor (HCC) Rheumatology Chris No MD 06/07/2024 Rheumatoid arthritis involving multiple sites with positive rheumatoid factor (HCC) Chris Vazquez MD 03/08/2024 Rheumatoid arthritis involving multiple sites with positive rheumatoid factor (HCC) Rheumatology Chris No MD Upcoming Rheumatology Appointments - Next 365 Days Visit Type Date Time Department [facility] 12/19/2024 11:20 AM RHEU [facility] REJ Last Ophthalmology Check for Plaquenil (Hydroxychloroquine) Last OCT Macula Exam No resulted procedures found. Last Visual Field Exam No resulted procedures found. CBC: Latest Ref Rng & Units 08/01/2023 03/08/2024 CBC WBC 3.70 - 11.00 k/uL 5.89 6.75 Hemoglobin 11.5 - 15.5 g/dL 12.7 13.8 Hematocrit 36.0 - 46.0 % 38.9 41.0 Platelet Count 150 - 400 k/uL 204 222 Abs Neut (ANC) 1.45 - 7.50 k/uL 2.89 5.36 Abs Lymph 1.00 - 4.00 k/uL 2.21 1.00 Vitamin D: None on file in the last 6 months LFT: Latest Ref Rng & Units 08/01/2023 03/08/2024 CMP Sodium 136 - 144 mmol/L 138 137 Potassium 3.7 - 5.1 mmol/L 4.4 4.7 Chloride 98 - 107 mmol/L 102 102 CO2 22 - 30 mmol/L 25 21 Glucose 74 - 99 mg/dL 91 93 BUN 7 - 21 mg/dL 21 19 Creatinine 0.58 - 0.96 mg/dL 0.75 0.80 Calcium 8.5 - 10.2 mg/dL 9.3 9.4 AST 13 - 35 U/L 18 23 ALT 7 - 38 U/L 15 17 Alkaline Phosphatase 34 - 123 U/L 73 63 Hepatic Function: Creatinine: None on file in the last 6 months ESR/CRP: None on file in the last 6 months Uric Acid: None on file in the last 6 months Open Standing (Multiple Instance) Lab Orders None Open Future (Single Instance) Lab Orders Expected Expires Ordered VITAMIN D 25 HYDROXY [SQVITD] 03/04/25 06/03/25 09/24/24 Auth. provider: Keyshawn Arellano MD Assoc. diagnoses: Malaise and fatigue, Vitamin D deficiency, Abnormal weight gain PTH INTACT [SQPTHI] 03/04/25 06/03/25 09/24/24 Auth. provider: Keyshawn Arellano MD Assoc. diagnoses: Malaise and fatigue, Vitamin D deficiency, Abnormal weight gain CALCIUM, TOTAL [SQCA] 03/04/25 06/03/25 09/24/24 Auth. provider: Keyshawn Arellano MD Assoc. diagnoses: Malaise and fatigue, Vitamin D deficiency, Abnormal weight gain documented in this encounterJoint [facility] NoteHNO ID: [id number] Author: KEYSHAWN ARELLANO MD Service: ? Author Type: Physician Type: Progress Notes Filed: 09/24/2024 12:35 Note Text: This note was created using CompleteSetriter. Subjective Caty Hills is a 64-year-old female with a history of rheumatoid arthritis, presenting for evaluation of brain fog, weight gain, and dry mouth. She states that she wanted to be evaluated by endocrinology first to rule out thyroid and parathyroid issues. HPI Brain Fog: - Worsening brain fog and confusion over the past year. - Episodes of going blank during conversations, occurring at least three times in one day. - Describes episodes as the screen is wiped, requiring a keyword to regain focus. - Onset of symptoms approximately six months ago; previously attributed to aging. - Family history of thyroid issues and cancer. - Experiences tremors in hands and head shaking, as noted by . - Reports memory loss and exhaustion. Weight Gain: - Difficulty losing weight; never feels hungry, eats only to avoid headaches. - Family history of diabetes in mother and grandfather. - Reports fatigue after meals and consistently by 14:30-15:00 daily. - Taking Prednisone for rheumatoid arthritis flares, which Caty believes contributes to weight gain. Dry Mouth: - Uses a rinse to manage dry mouth. - Uncertain if real estate specialist is aware of the condition. - Reports spasms and cramps, primarily on the left side, waking Caty at night. - Noted swelling on one side of the body, which fluctuates in size; ultrasound showed no abnormalities. - Recently completed a course of vitamin D supplementation, mistakenly taken daily instead of weekly. - Takes B12 supplements approximately once a week. - Denies taking calcium or magnesium supplements. Review of Systems Eyes: Positive for visual disturbance. Cardiovascular: Positive for leg swelling. Gastrointestinal: Positive for constipation and diarrhea. Endocrine: Positive for heat intolerance and polydipsia. Genitourinary: Positive for urgency. Musculoskeletal: Positive for myalgias. Neurological: Positive for dizziness and headaches. Answers submitted by the patient for this visit: Endocrine Review of Systems (Submitted on 09/22/2024) Fatigue: Yes Night sweats: Yes Recent unintentional weight change: Yes Skin Color Changes: No Thyroid Pain (lower neck): Yes Trouble Swallowing: Yes Leg Pain while walking?: Yes Difficulty Breathing?: Yes Bone Pain?: Yes Muscle weakness: Yes Joint pain or stiffness: Yes Numbness?: Yes Increased Urination: Yes Slow or Small Urine Stream?: No Are your menstrual cycles regular?: No Are your menstrual cycles irregular?: No Have your menstrual cycles stopped?: Yes Flushing: Yes Change in Body Hair?: Yes Objective BP 151/81 Pulse 67 Wt 102.1 kg (225 lb) BMI 35.23 kg/m? Physical Exam Constitutional: Appearance: Normal appearance. Neck: Thyroid: No thyroid mass. Cardiovascular: Rate and Rhythm: Normal rate and regular rhythm. Pulmonary: Effort: Pulmonary effort is normal. Breath sounds: Normal breath sounds. Neurological: General: No focal deficit present. Mental Status: She is alert. Psychiatric: Mood and Affect: Mood normal. Assessment and Plan 1. Malaise and fatigue (R53.81) - Symptoms include brain fog, confusion, tremors, and exhaustion, with fatigue worsening after meals. - Family history of diabetes; potential insulin resistance considered. - Ordered fasting insulin and blood glucose levels to assess for insulin resistance. - Recommended vitamin B complex supplementation to support brain health and memory. - Advised to consider seeing a neurologist for baseline cognitive testing. Long standing history of RA on Rinvoq and Hydroxychloroquine. 2. Vitamin D deficiency (E55.9) - ? Family history of parathyroidal disease , she wants to get checked - she had vitamin D deficiency , she accidentally took weekly vitamin D daily. - Ordered follow-up vitamin D and parathyroid hormone levels in March to reassess status. - Educated on potential risks of hypervitaminosis D and its effects on calcium metabolism. 3. Abnormal weight gain (R63.5) - Difficulty losing weight; potential contributing factors include steroid use and possible insulin resistance. - Discussed dietary modifications to reduce inflammation and improve metabolic function. - Will reassess weight management strategies based on insulin resistance test results.[facility]06-23-2025 History of Present illness Narrative* Keyshawn Arellano MD - 09/24/2024 11:49 AM EDT This note was created using CompleteSetriter. Subjective Caty Hills is a 64-year-old female with a history of rheumatoid arthritis, presenting for evaluation of brain fog, weight gain, and dry mouth. She states that she wanted to be evaluated by endocrinology first to rule out thyroid and parathyroid issues. HPI Brain Fog: - Worsening brain fog and confusion over the past year. - Episodes of going blank during conversations, occurring at least three times in one day. - Describes episodes as the screen is wiped, requiring a keyword to regain focus. - Onset of symptoms approximately six months ago; previously attributed to aging. - Family history of thyroid issues and cancer. - Experiences tremors in hands and head shaking, as noted by . - Reports memory loss and exhaustion. Weight Gain: - Difficulty losing weight; never feels hungry, eats only to avoid headaches. - Family history of diabetes in mother and grandfather. - Reports fatigue after meals and consistently by 14:30-15:00 daily. - Taking Prednisone for rheumatoid arthritis flares, which Caty believes contributes to weight gain. Dry Mouth: - Uses a rinse to manage dry mouth. - Uncertain if real estate specialist is aware of the condition. - Reports spasms and cramps, primarily on the left side, waking Caty at night. - Noted swelling on one side of the body, which fluctuates in size; ultrasound showed no abnormalities. - Recently completed a course of vitamin D supplementation, mistakenly taken daily instead of weekly. - Takes B12 supplements approximately once a week. - Denies taking calcium or magnesium supplements. Review of Systems Eyes: Positive for visual disturbance. Cardiovascular: Positive for leg swelling. Gastrointestinal: Positive for constipation and diarrhea. Endocrine: Positive for heat intolerance and polydipsia. Genitourinary: Positive for urgency. Musculoskeletal: Positive for myalgias. Neurological: Positive for dizziness and headaches. Answers submitted by the patient for this visit: Endocrine Review of Systems (Submitted on 09/22/2024) Fatigue: Yes Night sweats: Yes Recent unintentional weight change: Yes Skin Color Changes: No Thyroid Pain (lower neck): Yes Trouble Swallowing: Yes Leg Pain while walking?: Yes Difficulty Breathing?: Yes Bone Pain?: Yes Muscle weakness: Yes Joint pain or stiffness: Yes Numbness?: Yes Increased Urination: Yes Slow or Small Urine Stream?: No Are your menstrual cycles regular?: No Are your menstrual cycles irregular?: No Have your menstrual cycles stopped?: Yes Flushing: Yes Change in Body Hair?: Yes Objective BP 151/81 Pulse 67 Wt 102.1 kg (225 lb) BMI 35.23 kg/m Physical Exam Constitutional: Appearance: Normal appearance. Neck: Thyroid: No thyroid mass. Cardiovascular: Rate and Rhythm: Normal rate and regular rhythm. Pulmonary: Effort: Pulmonary effort is normal. Breath sounds: Normal breath sounds. Neurological: General: No focal deficit present. Mental Status: She is alert. Psychiatric: Mood and Affect: Mood normal. Assessment and Plan 1. Malaise and fatigue (R53.81) - Symptoms include brain fog, confusion, tremors, and exhaustion, with fatigue worsening after meals. - Family history of diabetes; potential insulin resistance considered. - Ordered fasting insulin and blood glucose levels to assess for insulin resistance. - Recommended vitamin B complex supplementation to support brain health and memory. - Advised to consider seeing a neurologist for baseline cognitive testing. Long standing history of RA on Rinvoq and Hydroxychloroquine. 2. Vitamin D deficiency (E55.9) - ? Family history of parathyroidal disease , she wants to get checked - she had vitamin D deficiency , she accidentally took weekly vitamin D daily. - Ordered follow-up vitamin D and parathyroid hormone levels in March to reassess status. - Educated on potential risks of hypervitaminosis D and its effects on calcium metabolism. 3. Abnormal weight gain (R63.5) - Difficulty losing weight; potential contributing factors include steroid use and possible insulinresistance. - Discussed dietary modifications to reduce inflammation and improve metabolic function. - Will reassess weight management strategies based on insulin resistance test results. documented in this encounterJoint [facility] History of Present illness Narrative* Dontrell Long RT(R) - 09/18/2024 7:20 AM EDT Radiology Service Progress Note PATIENT NAME: Caty Hills DATE OF SERVICE: September 18, 2024 TIME: 7:43 AM PATIENT IDENTITY VERIFICATION COMPLETED USING TWO (2) IDENTIFIERS: Name and Date of confirmedby patient verbally. FALL SCREENING: Has the patient had 2 falls in the last year or 1 fall with injury or currently using an Ambulatory Assistive Device (Walker, Cane, Wheelchair, Crutches, etc.)? No PATIENT GENDER DATA: Assigned female at . status: : No status:NO. PATIENT RELEVANT IMPLANT DATA REVIEWED: Yes PATIENT PRESENTS WITH AN IMPLANTABLE OR ATTACHED MANUFACTURING INDUSTRIAL ENGINEER: No RADIOLOGY DEPARTMENT: MR; Exam(s) Completed: Spine: Cervical spine. Lavender Administered: No PERIPHERAL IV DATA: Not applicable SIGNED BY: RT Luis(R) September 18, 2024 7:43 AM documented in this encounterJoint [facility]06-[facility]25 NoteHNO ID: [id number] Author: DONTRELL LONG RT(R) Service: ? Author Type: Technologist Type: Progress Notes Filed: 09/18/2024 07:44 Note Text: Radiology Service Progress Note PATIENT NAME: Caty Hills DATE OF SERVICE: September 18, 2024 TIME: 7:43 AM PATIENT IDENTITY VERIFICATION COMPLETED USING TWO (2) IDENTIFIERS: Name and Date of confirmed by patient verbally. FALL SCREENING: Has the patient had 2 falls in the last year or 1 fall with injury or currently using an Ambulatory Assistive Device (Walker, Cane, Wheelchair, Crutches, etc.)? No PATIENT GENDER DATA: Assigned female at . status: : No status: NO. PATIENT RELEVANT IMPLANT DATA REVIEWED: Yes PATIENT PRESENTS WITH AN IMPLANTABLE OR ATTACHED MANUFACTURING INDUSTRIAL ENGINEER: No RADIOLOGY DEPARTMENT: MR; Exam(s) Completed: Spine: Cervical spine. Lavender Administered: No PERIPHERAL IV DATA: Not applicable SIGNED BY: RT Luis(Carey) September 18, 2024 7:43 [facility]06-09-2025 NoteHNO ID: [id number] Author: CHRIS NO MD Service: ? Author Type: Physician Type: Progress Notes Filed: 09/10/2024 12:15 Note Text: Rheumatology Outpatient Clinic Date of Service: 09/10/2024 Patient: Caty Hills Medical Record: [id number] Primary Care Physician: Anibal Juan DO, DO Last Rheumatology visit: 06/07/2024 (with Chris No) History of Present Illness Caty Hills is a 64 year old White female who presents on 09/10/2024 for an in-person visit for evaluation of Rheumatoid Arthritis. She is currently taking hydroxychloroquine sulfate, meloxicam, prednisone, upadacitinib. Her most recent CHERIE was negative (07/11/2020). HISTORY OF PRESENT ILLNESS This patient is known to me from my previous practice with [facility] with diagnosis of rheumatoid arthritis. This patient has been on DMARD therapy in the past with methotrexate and has not tolerated it well. She had been on a sequence of Biologics and when last seen in May 2021 was on Rinvoq 15 mg daily and doing well. Then in June 2021 that she developed a bout of iritis. She was being seen by a different real estate specialist with [facility] and switch her off of Rinvoq and placed her on Humira for the iritis. The patient has tolerated the Humira and it is improved her iritis. She has not needed to be on topical steroid treatment for her eyes in several months now. She does get some breakthrough discomfort in her eyes but no full-blown iritis. Where is a bigger problem is off of the Rinvoq she is had escalation of rheumatoid arthritis activity in her hands, wrists, shoulders, right knee and toes despite being on the Humira. Her other real estate specialist is even attempted to place methotrexate in combination with the Humira and this did not improve her rheumatoid arthritis and she felt ill on the methotrexate and has discontinued it. She was inquiring as to whether or not she would be allowed to go back onto the Rinvoq. Aside from the iritis she has not experienced any other extra-articular manifestations of rheumatoid arthritis. She shares with me that she had her right knee replaced 3 months ago and it is not doing as well as the left knee did from 2-1/2 years ago. The right knee remains quite swollen and painful and she believes the rheumatoid arthritis may be contributing to the right knee pain. INTERVAL HISTORY Patient returns for reevaluation and management of her rheumatoid arthritis. Since last visit patient continues Rinvoq 15 mg daily and resuming hydroxychloroquine at 200 mg daily along with meloxicam 15 mg daily. She felt some of her arthritis symptoms began to escalate off the hydroxychloroquine and started back at half dosage to see if this could improve her pain. Her right knee and ankle have been active with pain. She is also experiencing some left-sided pain with the left arm and the left leg but it seems to be emanating from the biggest issue which is her neck. In the past month she has been experiencing a fullness to her neck particularly on the left side. She states she feels like her lymph nodes are swelling it is quite uncomfortable particularly when she is laying on her right side there is this discomfort in the left neck. She experiences burning and tingling paresthesias in the left arm. The left leg can also give her degree of discomfort. She underwent CT scan of the neck recently which shows relatively stable soft tissues/lymph nodes/glands of the neck. There is comment that there is degenerative disc disease in the neck but it is not discrete enough to determine if there is any nerve involvement. She does have an ultrasound of the neck pending. She has a consultation with endocrinology upcoming. There are no new extra-articular manifestations of rheumatoid arthritis. Her general health has been unchanged from last visit. Rheum/Ortho Arthrocentesis Injections (last 5) 03/02/2023 12:44 Injection History Location thumb Thumb Site R thumb [facility] Patient-Entered Data PAIN EVALUATION 09/10/2024 1126 Pain Level: 6 Pain Location: Other: See Comment Level 6 pain in legs and neck with neck swelling PROMIS Assessments 07/31/2023 PROMIS Assessments Physical Health Percentile 10 Mental Health Percentile 26 Pain Score 3 Pain Interference Percentile 4 Fatigue Percentile 10 Physical Function Percentile 7 RAPID 3 [place] Activities of Daily Living 07/31/2023 3:09 PM Dress self? With SOME difficulty Get in and out of bed? With SOME difficulty Walk outdoors? With SOME difficulty Wash and dry body? Without ANY difficulty Get in and out of car? With SOME difficulty RAPID 3 Disease Activity Weighed Score Levels: 0 - 1: Near Remission 1.3 - 2.0: Low Severity 2.3 - 4.0: Moderate Severity 4.3 - 10.0: High Severity 07/31/2023 RAPID-3 Weighed Score RAPID 3 Weighed Score 4.83 (High severity ) Review of Systems Review of Systems CONSTITU (more content not included)...[facility]06-09-2025 History of Present illness Narrative* Chris No MD - 09/10/2024 11:25 AM EDT Images from the original note were not included. Rheumatology Outpatient Clinic Date of Service: 09/10/2024 Patient: Caty Hills Medical Record: [id number] Primary Care Physician: Anibal Juan, DO, DO Last Rheumatology visit: 06/07/2024 (with Chris No) History of Present Illness Caty Hills is a 64 year old White female who presents on 09/10/2024 for an in-person visit for evaluation of Rheumatoid Arthritis. She is currently taking hydroxychloroquine sulfate, meloxicam, prednisone, upadacitinib. Her most recent CHERIE was negative (07/11/2020). HISTORY OF PRESENT ILLNESS This patient is known to me from my previous practice with [facility] with diagnosis of rheumatoid arthritis. This patient has been on DMARD therapy in the past with methotrexate and has not tolerated it well. She had been on a sequence of Biologics and when last seen in May 2021 wason Rinvoq 15 mg daily and doing well. Then in June 2021 that she developed a bout of iritis. She was being seen by a different real estate specialist with [facility] and switch her off of Rinvoq and placed her on Humira for the iritis. The patient has tolerated the Humira and it is improved her iritis. She has not needed to be on topical steroid treatment for her eyes in several months now. She does get some breakthrough discomfort in her eyes but no full-blown iritis. Where is a bigger problem is off of the Rinvoq she is had escalation of rheumatoid arthritis activity in her hands, wrists, shoulders, right knee and toes despite being on the Humira. Her other real estate specialist is even attempted to place methotrexate in combination with the Humira and this did not improve her rheumatoid arthritis and she felt ill on the methotrexate and has discontinued it. She was inquiring as to whether or not she would be allowed to go back onto the Rinvoq. Aside from the iritis she has not experienced any other extra- articular manifestations of rheumatoid arthritis. She shares with me that she had her right knee replaced 3 months ago and it is not doing as well as the left knee did from 2-1/2 years ago. The right knee remains quite swollen and painful and she believes the rheumatoid arthritismay be contributing to the right knee pain. INTERVAL HISTORY Patient returns for reevaluation and management of her rheumatoid arthritis. Since last visit patient continues Rinvoq 15 mg daily and resuming hydroxychloroquine at 200 mg daily along with [id number] mg daily. She felt some of her arthritis symptoms began to escalate off the hydroxychloroquine and started back at half dosage to see if this could improve her pain. Her right knee and ankle have been active with pain. She is also experiencing some left- sided pain with the left arm and the left leg but it seems to be emanating from the biggest issue which is her neck. In the past month she hasbeen experiencing a fullness to her neck particularly on the left side. She states she feels like her lymph nodes are swelling it is quite uncomfortable particularly when she is laying on her right side there is this discomfort in the left neck. She experiences burning and tingling paresthesias in the left arm. The left leg can also give her degree of discomfort. She underwent CT scan of the neckrecently which shows relatively stable soft tissues/lymph nodes/glands of the neck. There is comment that there is degenerative disc disease in the neck but it is not discrete enough to determine if there is any nerve involvement. She does have an ultrasound of the neck pending. She has a consultation with endocrinology upcoming. There are no new extra-articular manifestations of rheumatoid arthri tis. Her general health has been unchanged from last visit. Rheum/Ortho Arthrocentesis Injections (last 5) 03/02/2023 12:44 Injection History Location thumb Thumb Site R thumb [facility] Patient-Entered Data PAIN EVALUATION 09/10/2024 1126 Pain Level: 6 Pain Location: Other: See Comment Level 6 pain in legs and neck with neck swelling PROMIS Assessments 07/31/2023 PROMIS Assessments Physical Health Percentile 10 Mental Health Percentile 26 Pain Score 3 Pain Interference Percentile 4 Fatigue Percentile 10 Physical Function Percentile 7 RAPID 3 [place] Activities of Daily Living 07/31/2023 3:09 PM Dress self? With SOME difficulty Get in and out of bed? With SOME difficulty Walk outdoors? With SOME difficulty Wash and dry body? Without ANY difficulty Get in and out of car? With SOME difficulty RAPID 3 Disease Activity Weighed Score Levels: 0 - 1: Near Remission 1.3 - 2.0: Low Severity 2.3 - 4.0: Moderate Severity 4.3 - 10.0: High Severity 07/31/2023 RAPID-3 Weighed Score RAPID 3 Weighed Score 4.83 (High severity ) Review of Systems Review of Systems CONSTITUTION: Negative for: Weight loss or gain, Fever. Chills, Night sweats HEENT: Negative for: Nosebleeds, Mouth sores, Trouble swallowing, Dry mouth RESPIRATORY: Negative for: Cough, Shortness of breath, Pain with breathing, Coughing up blood GASTROINTESTINAL: Negative for: Melena, Diarrhea, Abdominal pain, Heartburn, MUSCULOSKELETAL: Positive for: Arthralgias and Myalgias Negative for: Muscle weakness, Joint swelling and Morning Joint Stiffness NEUROLOGICAL: Positive for: Numbness Negative for: Headaches and Memory loss SKIN: Negative for: Rashes, Sun sensitive rashes, Skin color changes, Hair loss, Nail changes EYES: Negative for: Eye pain, Eye redness, Visual disturbance, Eye dryness CARDIOVASCULAR: Negative for: Chest pain, Leg swelling, Arrhythmia, Presyncope GENITOURINARY: Negative for: Dysuria, Hematuria, Ulceration HEMATOLOGIC/LYMPHATIC: Negative for: Swollen glands All other reviewed and negative other than HPI. Past Medical History PAST MEDICAL HISTORY Diagnosis Date Anxiety Class 2 obesity in adult Heart palpitations Hypertension Hypokalemia NONE Rheumatoid arthritis (HCC) Seizure-like activity (HCC) SVT (supraventricular tachycardia) (HCC) Traumatic brain injury (HCC) slipped on ice and hit head on concrete and passed out for 2 min in 2009 Past Surgical History PAST SURGICAL HISTORY Procedure Laterality Date ANESTHESIA VAGINAL HYSTERECTOMY INCL BIOPSY 1996 ENDOMETRIOSIS, PAIN , CYSTS BACK SURGERY HX 2013 spinal fusion with screws CARPAL TUNNEL RIGHT WRIST 1996 RIGHT AND LEFT WRIST CONIZATION CERVIX W/WO D&C RPR KNIFE/LASER 1994 DYSPLASIA DILATION & CURETTAGE DX&/THER NONOBSTETRIC Dilation & curettage DILATION & CURETTAGE DX&/THER NONOBSTETRIC Dilation & curettage KNEE SURGERY HX PAST SURGICAL HISTORY OF 1978 REMOVAL OF BENIGN CYST RIGHT NECK Family History FAMILY HISTORY Problem Relation Age of Onset Thyroid Mother Coronary Artery Disease Mother Arthritis Mother Asthma Mother Hypertension Mother Cancer Mother Arrythmias Mother Afib Heart Failure Mother CHF-cause of Stroke Mother Diabetes Mother Cancer Father testicular cancer Heart disease Half-sister Thyroid Brother Hypertension Brother Heart disease Maternal Grandmother Heart disease Maternal Grandfather Cancer Paternal Grandmother bone Breast Cancer Paternal Grandmother Heart disease Paternal Grandfather Mental illness Daughter Multiple Sclerosis Son Schizophrenia Paternal Aunt Social History Social History Tobacco Use Smoking status: Former Current packs/day: 0.00 Average packs/day: 0.5 packs/day for 20.0 years (10.0 ttl pk-yrs) Types: Cigarettes Start date: 09/19/1980 Quit date: 09/19/2000 Years since quittin.9 Smokeless tobacco: Never Vaping Use Vaping status: Never Used Substance Use Topics Alcohol use: Yes Comment: social Drug use: No Current Medications Current Outpatient Medications Medication Sig upadacitinib tablet ER 24 hr 15 mg (RINVOQ) Take 1 tablet by mouth once daily. predniSONE (DELTASONE) 5 mg tablet TAKE UP TO TAKE THREE TABLETS BY MOUTH DAILY NEEDED atogepant (QULIPTA) 60 mg tablet Take 60 mg by mouth once daily. (Patient not taking: Reported on 09/10/2024) hydrOXYchloroQUINE (PLAQUENIL) 200 mg tablet Take two tabs by mouth daily meloxicam (MOBIC) 15 mg tablet take 1 tablet by mouth daily (Patient not taking: Reported on 09/10/2024) metoprolol tartrate, short acting, (LOPRESSOR) 50 mg tablet Take 25 mg by mouth twice daily. multivitamin tablet Take 1 tablet by mouth once daily. ascorbic acid, vitamin C, (VITAMIN C) 500 mg tablet Take 1 tablet by mouth two times a day with meals. Valsartan-hydroCHLOROthiazide 160-25 mg per tablet Take 1 tablet by mouth once daily. escitalopram oxalate (LEXAPRO) 20 mg tablet Take 20 mg by mouth daily at bedtime. QUEtiapine (SEROQUEL) 25 mg tablet Take 25 mg by mouth at bedtime as needed. Take 1-2 tabs as needed for sleep Scoqlffngktyb-Sysagcss-Hpjuyp (MULTIVITAMIN 50 PLUS) tab Take 1 tablet by mouth once daily. pantoprazole DR (PROTONIX) 40 mg tablet Take 40 mg by mouth once daily. (Patient not taking: Reported on 09/10/2024) No current facility-administered medications for this visit. Last Ophthalmology Check for Plaquenil (Hydroxychloroquine) Last OCT Macula Exam No resulted procedures found. Last Visual Field Exam No resulted procedures found. Labs Latest Ref Rng & Units 03/08/2024 08/01/2023 05/26/2023 02/03/2023 CBC WBC 3.70 - 11.00 k/uL 6.75 5.89 5.84 6.03 Hemoglobin 11.5 - 15.5 g/dL 13.8 12.7 12.2 11.9 Hematocrit 36.0 - 46.0 % 41.0 38.9 36.3 35.7 Platelet Count 150 - 400 k/uL 222 204 222 235 Abs Neut (ANC) 1.45 - 7.50 k/uL 5.36 2.89 3.06 1.93 Abs Lymph 1.00 - 4.00 k/uL 1.00 2.21 1.87 3.45 Latest Ref Rng & Units 03/08/2024 08/01/2023 05/26/2023 02/03/2023 CMP Sodium 136 - 144 mmol/L 137 138 140 Potassium 3.7 - 5.1 mmol/L 4.7 4.4 3.8 Chloride 98 - 107 mmol/L 102 102 103 CO2 22 - 30 mmol/L 21 25 25 Glucose 74 - 99 mg/dL 93 91 105 BUN 7 - 21 mg/dL 19 21 17 Creatinine 0.58 - 0.96 mg/dL 0.80 0.75 0.90 0.73 Calcium 8.5 - 10.2 mg/dL 9.4 9.3 9.0 AST 13 - 35 U/L 23 18 24 21 ALT 7 - 38 U/L 17 15 21 14 Alkaline Phosphatase 34 - 123 U/L 63 73 61 Latest Ref Rng & Units 08/01/2023 05/26/2023 02/03/2023 04/06/2022 ESR, WSR WSR 0 - 20 mm/hr 8 9 5 15 Latest Ref Rng & Units 05/26/2023 07/11/2020 12/21/2002 CRP CRP <0.9 mg/dL 0.7 <0.3 0.9 Latest Ref Rng & Units 12/21/2002 CK CK 30 - 220 U/L 76 Latest Ref Rng & Units 03/08/2024 05/26/2023 04/06/2022 Hepatitis Screen Hep B Surface Ag Negative Negative Negative Negative 03/08/2024 05/26/2023 04/06/2022 TB Screen TB Interpretation Infection with M. tuberculosis complex is unlikely. If latent tuberculosis infection is highly suspected, a negative result does not rule out the infection. Specimens from immunocompromised patients and those <5 years of age may show false negative results. In case of a contactinvestigation, please repeat 8-12 weeks after a known exposure. Infection with M. tuberculosis complex is unlikely. If latent tuberculosis infection is highly suspected, a negative result does not rule out the infection. Specimens from immunocompromised patients and those <5 years of age may show false negative results. In case of a contact investigation, please repeat 8-12 weeks after a knownexposure. Infection with M. tuberculosis complex is unlikely. If latent tuberculosis infection is highly suspected, a negative result does not rule out the infection. Specimens from immunocompromisedpatients and those <5 years of age may show false negative results. In case of a contact investigation, please repeat 8-12 weeks after a known exposure. TB Result Negative Negative Negative Latest Ref Rng & Units 01/18/2021 07/11/2020 01/30/2003 Antibodies CHERIE by EIA OD Ratio 0.4 0.6 CHERIE by EIA, Qual Negative Negative Sm Antibody <1.0 AI <0.2 Ribosomal [employer] <1.0 AI <0.2 Chromatin Antibody <1.0 AI 0.2 SSA Antibody <1.0 AI <0.2 SSB Antibody <1.0 AI <0.2 MINE [employer]ATOR Antibody <1.0 AI <0.2 Scleroderma Ab, IgG <1.0 AI <0.2 Centromere Ab <1.0 AI <0.2 SOHA-1 ANTIBODY, IGG <1.0 AI <0.2 PT Sec 9.7 - 13.0 sec 10.3 PT INR 0.9 - 1.3 1.0 APTT 23.0 - 32.4 sec 24.2 Imaging Last XR Hand/Finger - Impression Only XR HAND GENERAL 3V PA/LAT/OBL RIGHT Exam End: 09/01/2023 10:30 AM (Final result) Impression: *No fracture. Remote deformity consistent with prior trauma in the the ulnar styloid. Scattered distal degenerative changes. No erosions. First carpometacarpal, radiocarpal, and distal radial ulnar joint degenerative changes are present. No malalignment. Electronically signed: Anibal Larsen MD. Last MRI Hand - Impression Only No resulted procedures found. Last XR Chest - Impression Only XR CHEST 1V FRONTAL PORT Exam End: 12/30/2018 12:50 PM (Final result) Impression: IMPRESSION: No infiltrate. ... Last XR Cervical Spine - Impression Only No resulted procedures found. Health Maintenance Current Immunizations Reviewed on 04/06/2022 Name Date COVID-19 vaccine, monovalent (MODERNA) 08/22/2020, 07/23/2020 pneumococcal (PCV20) vaccine 08/20/2021 Physical Exam GENERAL APPEARANCE: Well groomed. Alert and oriented x 3. In no distress. VITAL SIGNS: BP 112/69 Pulse 60 Ht 5' 7.008 (1.70m) Wt 229 lb 15 oz (104.3kg) BMI 36.01 kg/(m^2). SKIN: No rash, thickening, nodules, discoloration. EYES: PERRL, EOMI. No inflammation seen. HENT: External examination and palpation of the ears and nose normal. Lips, teeth, and gums normal.Oropharynx and tongue normal. No lesions or exudate. NECK: No palpable mass with a degree of asymmetry with fullness to her left side of the neck that is nonspecific. RESPIRATORY: Normal respiratory effort. Clear to auscultation and percussion. CARDIOVASCULAR: Heart RRR without gallop, murmur, or rub. No bruits across chest or neck. EXTREMITIES: Normal and equal pulses in all 4 extremities. No edema. ABDOMEN: BS normal. No bruits, No tenderness, mass, or hepatosplenomegaly. NEUROLOGIC: Sensory exam normal. MUSCULOSKELETAL EXAMINATION: Soft tissue tender points: None Motor exam: Normal 5+/5+ muscle strength. Normal bulk and tone. Cervical spine: No visible abnormalities Tenderness to palpation. Thoracic spine: No visible abnormalities. No tenderness to palpation. Lumbar spine: No visible abnormalities. Full ROM. No tenderness to palpation. Joint Exam 09/10/2024 Right Left Glenohumeral Tender Cervical Spine Tender Knee Tender Tender The following joints were examined and normal: Left Sternoclavicular, Right Sternoclavicular, Left Acromioclavicular, Right Acromioclavicular, Right Glenohumeral, Left Elbow, Right Elbow, Left Wrist, Right Wrist, Left MCP 1, Right MCP 1, Left MCP2, Right MCP 2, Left MCP 3, Right MCP 3, Left MCP 4, Right MCP 4, Left MCP 5, Right MCP 5, Left IP (thumb), Right IP (thumb), Left PIP 2 (finger), Right PIP 2 (finger), Left PIP 3 (finger), Right PIP3 (finger), Left PIP 4 (finger), Right PIP 4 (finger), Left PIP 5 (finger), Right PIP 5 (finger), Left Ankle, Right Ankle, Left MTP 1, Right MTP 1, Left MTP 2, Right MTP 2, Left MTP 3, Right MTP 3, Left MTP 4, Right MTP 4, Left MTP 5, Right MTP 5 Joint Exam Data (across time) 09/10/2024 06/07/2024 03/08/2024 12/26/2023 10/24/2023 Joint Exam Total Tender 3 0 15 15 17 Total Swollen 0 0 0 0 5 Impression Diagnoses: (M05.79) Rheumatoid arthritis involving multiple sites with positive rheumatoid factor (HCC) (primary encounter diagnosis) (Z79.899) High risk medication use (Z86.69) H/O iritis (M47.812, M79.2) Cervical spine arthritis with nerve pain (M79.2) Radicular pain in left arm (M48.02) Spinal stenosis of cervical region Plan Orders this visit: Office Visit on 09/10/24 MRI CERVICAL SPINE WO BRIGID Discussed current status of rheumatoid arthritis as active on current treatment with Rinvoq 15 mg daily and hydroxychloroquine 200 mg daily. The supply of each of these medications is stable at this time. She will use prednisone very sparingly and has a reasonably good supply of prednisone at this time. I reviewed recent CBC and CMP from 08/31/2024 as stable. Reviewed and discussed the CT and scanof the neck as unrevealing in terms of the new symptoms of the left neck fullness on the left side.She has some left upper and lower extremity symptoms and I am concerned that there is actually of cervical spine process that giving her a fair amount of problem. I recommend an MRI of the cervical sp ine to assess for spinal compromise along the lines of stenosis and also identify any intrathecal issues with the spinal cord. I recommend she go forward with the ultrasound of the neck and consultation with endocrinology as planned. If this upcoming workup does not provide any more insight I will would give consideration to an ENT consultation. Return in about 3 months (around 12/11/2024). I spent a total of 30 minutes on the date of the service which included preparing to see the patient, [id number] patient care, completing clinical documentation, obtaining and/or reviewing separately obtained history, performing a medically appropriate examination, counseling and educating the pat ient/family/caregiver, ordering medications, tests, or procedures, independently interpreting results (not separately reported), and communicating results to the patient/family/caregiver. Medical Decision Making: Problems: Moderate: 1+ chronic illnesses with change Risk: High: High risk from testing/treatment Medical Decision Making Level: 4 - Moderate Chris No MD Rheumatology Date: September 10, 2024 Time: 11:25 AM [facility] Telephone encounter Note * Telephone Encounter - Marianela Mobley LPN - 09/03/2024 5:44 PM EDT [facility]. Copy sent to scanning, copy placed in Dr. No folder for review. [facility] Miscellaneous Notes* Telephone Encounter - Marianela Mobley LPN - 09/03/2024 5:44 PM EDT [facility]24. Copy sent to scanning, copy placed in Dr. No folder for review. documented in [facility] History of Present illness Narrative* Anibal Juan, - 08/29/2024 9:00 AM EDT Images from the original note were not included. Caty Hills is a 64 y.o. female presents with chief complaint of Chief Complaint Patient presents with neck swelling Caty was seen today for neck swelling. Diagnoses and all orders for this visit: Gastroesophageal reflux disease, unspecified whether esophagitis present - CBC and differential - Comprehensive metabolic panel - Tsh+free t4 - T4, free - Vitamin D 25 hydroxy Total - Iron + transferrin + TIBC - Ferritin - Vitamin B12 - Folate - Magnesium - C-reactive protein - Sedimentation rate, automated - QUANTIFERON TB GOLD - Hepatitis B surface antigen Irritable bowel syndrome, unspecified type - CBC and differential - Comprehensive metabolic panel - Tsh+free t4 - T4, free - Vitamin D 25 hydroxy Total - Iron + transferrin + TIBC - Ferritin - Vitamin B12 - Folate - Magnesium - C-reactive protein - Sedimentation rate, automated - QUANTIFERON TB GOLD - Hepatitis B surface antigen Obesity (BMI 35.0-39.9 without comorbidity) - CBC and differential - Comprehensive metabolic panel - Tsh+free t4 - T4, free - Vitamin D 25 hydroxy Total - Iron + transferrin + TIBC - Ferritin - Vitamin B12 - Folate - Magnesium - C-reactive protein - Sedimentation rate, automated - QUANTIFERON TB GOLD - Hepatitis B surface antigen Immunocompromised (CMS/HCC) - CBC and differential - Comprehensive metabolic panel - Tsh+free t4 - T4, free - Vitamin D 25 hydroxy Total - Iron + transferrin + TIBC - Ferritin - Vitamin B12 - Folate - Magnesium - C-reactive protein - Sedimentation rate, automated - QUANTIFERON TB GOLD - Hepatitis B surface antigen Chronic fatigue syndrome - CBC and differential - Comprehensive metabolic panel - Tsh+free t4 - T4, free - Vitamin D 25 hydroxy Total - Iron + transferrin + TIBC - Ferritin - Vitamin B12 - Folate - Magnesium - C-reactive protein - Sedimentation rate, automated - QUANTIFERON TB GOLD - Hepatitis B surface antigen Fibromyalgia - CBC and differential - Comprehensive metabolic panel - Tsh+free t4 - T4, free - Vitamin D 25 hydroxy Total - Iron + transferrin + TIBC - Ferritin - Vitamin B12 - Folate - Magnesium - C-reactive protein - Sedimentation rate, automated - QUANTIFERON TB GOLD - Hepatitis B surface antigen Rheumatoid arthritis involving multiple sites with positive rheumatoid factor (CMS/HCC) - CBC and differential - Comprehensive metabolic panel - Tsh+free t4 - T4, free - Vitamin D 25 hydroxy Total - Iron + transferrin + TIBC - Ferritin - Vitamin B12 - Folate - Magnesium - C-reactive protein - Sedimentation rate, automated - QUANTIFERON TB GOLD - Hepatitis B surface antigen Vitamin D deficiency - CBC and differential - Comprehensive metabolic panel - Tsh+free t4 - T4, free - Vitamin D 25 hydroxy Total - Iron + transferrin + TIBC - Ferritin - Vitamin B12 - Folate - Magnesium - C-reactive protein - Sedimentation rate, automated - QUANTIFERON TB GOLD - Hepatitis B surface antigen Chronic fatigue - CBC and differential - Comprehensive metabolic panel - Tsh+free t4 - T4, free - Vitamin D 25 hydroxy Total - Iron + transferrin + TIBC - Ferritin - Vitamin B12 - Folate - Magnesium - C-reactive protein - Sedimentation rate, automated - QUANTIFERON TB GOLD - Hepatitis B surface antigen Mass of left side of neck - CT soft tissue neck w IV contrast Assessment & Plan 1. Dysphagia. Reports sensation of food being stuck and a lump in the throat for almost a month, worsening over time. Recently underwent an EGD showing mild gastritis and was switched from Protonix to Prilosec by GI specialist. Noted left side of neck with moderate swelling upper cervical chain with some tenderness; no significant thyroid enlargement or tenderness. A soft tissue CT scan of the neck with contrast will be obtained to further investigate the area. Blood work will be conducted to rule out other metabolic etiologies, including thyroid function, iron levels, vitamin B12, and folate. If the CT scan shows nodules, an ultrasound may be necessary to differentiate between cysts and nodules. Advised to continue monitoring symptoms. 2. Fatigue. Reports feeling weak and experiencing deep pain in legs over the past month. History of thyroid nodules and family history of thyroid cancer. Blood work will include tests for thyroid function, iron levels, vitamin B12, and folate to identify any deficiencies or abnormalities contributing to fatigue. Advised to follow up with real estate specialist at the end of September for routine blood work, including CBC, CMP, ESR, and CRP. ANIBAL JUAN D.O. This note was entered using Blinkit copilot. Grammatical and dictation errors maybe present in translation *I have reviewed and reconciled the history and medication list with the patient today* History of Present Illness Has noticed neck swelling over the last 2 months. In the last month this has been getting worse andnow notices a lump on the left side of her neck. Does admit to choking on food a lot and having a hard time swallowing. Had EGD done about a month ago and was told it showed inflammation of stomach. Awaiting biopsy results. GI wants her to stop the pantoprazole and take omeprazole but she has not made this change yet. At night she notices when her mouth is closed she feels like she can't breathe. If she lays on her right side she feels that her throat feels so heavy that her airway is restricted. Denies sore throat. Is always so tired and thinks this could be contributing. States years ago Dr Carballo told her she had nodules on her thyroid and never followed up with getting these rechecked. Wants to get imaging for this. The patient is a 64-year-old female who presents today with complaints of dysphagia. She recently underwent an EGD, which showed mild gastritis. Her medication was recently changed from Protonix to Prilosec by her GI specialist. She reports a sensation of food obstruction and a palpable lump in her throat, which has been present for approximately 1 month and appears to be progressively worsening. She first noticed these symptoms 2 months ago, initially presenting as persistent fullness. Despite maintaining her food intake to prevent hypoglycemia, she experiences difficulty swallowing and frequent choking episodes. She also reports a sensation of breathlessness, particularly when lying down, and finds relief in mouth breathing. However, she experiences discomfort when sleeping with her mouth closed. She describes a throbbing pain on one side when lying down, ashley to the sensation of slamming a finger. She also reports shoulder pain. She has been monitoring her diet and is due for a rheumatology follow-up at the end of 09/2024. She has requested a B12 injection. She recalls a previous diagnosis of thyroid nodulesby Dr. Junior Carballo, which were not followed up due to personal circumstances. She is uncertain ifthese nodules are contributing to her current symptoms. She has a family history of thyroid cancer in her mother and brother. She also reports dry mouth and increased fluid intake, consuming at least8 to 10 ounces daily. Over the past month, she has experienced generalized weakness and deep leg pain, which intensifies during bed rest. She had a large cyst removed from her neck at the age of 18, which was initially suspected to be lymphoma but was later ruled out. She also had a staph infection at that time. PAST SURGICAL HISTORY: She had a large cyst removed from her neck at the age of 18. FAMILY HISTORY Her mother and brother both have a history of thyroid cancer. SUBJECTIVE: Current Medications: Allergies/Social History: ROS Current Outpatient Medications on File Prior to Visit Medication Sig Dispense Refill albuterol HFA 90 mcg/act inhaler Atogepant 60 MG tablet Take 60 mg by mouth in the morning. calcium carbonate (Os-Alfonzo) 1250 (500 Ca) MG tablet Daily. cholecalciferol (Vitamin D-3) 50 MCG (2000 UT) capsule 1 capsule 1 (one) time each day at the same time. docusate sodium (Colace) 100 MG tablet Take 100 mg by mouth 2 (two) times a day as needed escitalopram (Lexapro) 20 MG tablet TAKE 1 TABLET BY MOUTH DAILY 90 tablet 1 fluticasone (Flonase) 50 MCG/ACT nasal spray 1 (one) time each day at the same time. hydroxychloroquine (Plaquenil) 200 MG tablet Take 200 mg by mouth Daily ibuprofen (Motrin IB) 200 MG tablet Take by mouth leflunomide (Arava) 10 MG tablet Take 1tab daily by mouth with food. No alcohol. Hold if on antibiotics or ill. metoprolol succinate XL (Toprol-XL) 25 MG 24 hr tablet Take 25 mg by mouth Daily Multiple Vitamin (Multi Vitamin) tablet 1 (one) time each day at the same time. ondansetron ODT (Zofran-ODT) 4 MG disintegrating tablet oxybutynin XL (Ditropan-XL) 10 MG 24 hr tablet Take 1 tablet (10 mg) by mouth Daily Do not crush, chew, or split. 90 tablet 3 pantoprazole (ProtoNix) 40 MG EC tablet 2 (two) times a day predniSONE (Deltasone) 5 MG tablet Daily as needed QUEtiapine (SEROquel) 25 MG tablet TAKE 1 TABLET BY MOUTH DAILY 30 tablet 5 upadacitinib ER (Rinvoq) 15 MG tablet sustained-release 24 hour Take 15 mg by mouth in the morning. valsartan (Diovan) 160 MG tablet TAKE 1/2 TABLET BY MOUTH DAILY 45 tablet 3 [DISCONTINUED] pregabalin (Lyrica) 50 MG capsule Take 1 capsule (50 mg) by mouth in the morning and1 capsule (50 mg) in the evening and 1 capsule (50 mg) before bedtime. 90 capsule 1 [DISCONTINUED] valACYclovir (Valtrex) 1 g tablet No current facility-administered medications on file prior to visit. Allergies Allergen Reactions Tofacitinib Diarrhea Social History Tobacco Use Smoking status: Former Current packs/day: 0.00 Types: Cigarettes Quit date: 04/04/2001 Years since quittin.4 Smokeless tobacco: Never Tobacco comments: Last smoked : > 10 years Vaping Use Vaping status: Never Used Substance Use Topics Alcohol use: Never Comment: caffeine intake : 1 cup per day ; coffee Drug use: Never Review of Systems Constitutional: Positive for fatigue. HENT: Positive for trouble swallowing. Negative for rhinorrhea. Respiratory: Negative for cough and shortness of breath. Cardiovascular: Negative for chest pain. Gastrointestinal: Negative for abdominal distention. Skin: Negative for rash. Neurological: Negative for dizziness. All other systems reviewed and are negative. Past Medical History: Surgical History: Depression Screen/FHx Past Medical History: Diagnosis Date Abnormal Pap smear of cervix 1994 Arthritis Bilateral carpal tunnel syndrome Bronchitis Chronic maxillary sinusitis 05/28/2019 Closed displaced fracture of fifth metatarsal bone of left foot 06/18/2019 Fatty liver H/O iritis 04/06/2022 Hamstring injury 01/24/2023 Headache Heart palpitations 11/15/2022 Hematuria Hemorrhoids 2012 History of lumbar fusion L5-S1 History of lumbar spinal fusion Hx of scarlet fever Hypertension (CMS/HCC) IBS (irritable bowel syndrome) 2012 Inflammatory bowel disease Kidney stone 2014 Migraine headache (CMS/HCC) PAT (paroxysmal atrial tachycardia) (CMS/HCC) 02/17/2023 Rheumatoid arthritis (CMS/HCC) rheum treating Status post total knee replacement, right 12/24/2021 Stress incontinence in female 04/27/2017 Ureteral stricture right Vasculitis (CMS/HCC) 02/25/2018 Past Surgical History: Procedure Laterality Date BACK SURGERY 2022 lumbar CARPAL TUNNEL RELEASE Bilateral CERVICAL CONIZATION W/ LASER 1994 CHOLECYSTECTOMY COLONOSCOPY 2013 hemorrhoids and IBS EGD 2012 with biopsy - Esophageal polyp HAND TENDON SURGERY Right LAPAROSCOPY ABDOMEN DIAGNOSTIC x 2 LYMPHADENECTOMY 1979 neck [address] SURGICAL HISTORY Ct abd, / pelvis - fatty liver OTHER SURGICAL HISTORY Nephrolithiaiss - Dr. Moreira PA LAP,CHOLECYSTECTOMY 03/30/2017 Dr. Younger PA SALPINGECTOMY COMPLETE/PARTIAL UNI/BI SPX 2005 operative scope - BSO / lysis of adhesions /fulguration of pelvic lesions SPINAL FUSION 2013 screws TENDON REPAIR Left 2022 Hamstring TOTAL KNEE ARTHROPLASTY 03/2018 meniscus tear TOTAL KNEE ARTHROPLASTY Right 2021 TOTAL VAGINAL HYSTERECTOMY 1998 URETERAL STENT PLACEMENT Right 2014 Depression: Not at risk (08/29/2024) PHQ-2 PHQ-2 Score: 0 Family History Problem Relation Name Age of Onset Thyroid cancer Mother Diabetes Mother Heart disease Mother No Known Problems Sister No Known Problems Brother Breast cancer Paternal Grandmother No Known Problems Son OBJECTIVE: 08/29/2024 9:05 AM 05/07/2024 3:40 PM 04/17/2024 10:59 AM 03/09/2024 2:04 PM 03/07/2024 10:06 AM 02/01/2024 10:51 AM 01/04/2024 12:48 PM Vitals BMI 35.55 kg/m2 35.55 kg/m2 35.24 kg/m2 34.93 kg/m2 35.71 kg/m2 34.77 kg/m2 34.46 kg/m2 BSA (m2) 2.21 m2 2.21 m2 2.2 m2 2.19 m2 2.21 m2 2.19 m2 2.17 m2 Systolic 124 126 124 143 136 116 120 Diastolic 84 72 82 88 82 74 70 Heart Rate 76 76 72 65 68 60 SpO2 97 % 96 % 97 % 98 % 97 % 98 % Temp 98.1 F 98.1 F 98.1 F 98 F 98 F 98.2 F Height (in) 5' 7 5' 7 5' 7 5' 7 5' 7 5' 7 5' 7 Weight (lb) 227 227 225 223 228 222 220 Visit Report Report Report Report Report Report Report Report Physical Exam General Appearance: Alert and oriented. Pleasant affect. No acute distress. Well nourished. Head: Atraumatic normal cephalic. No masses or swelling. Eyes: EOMI, sclera white, conjunctiva clear, no injection. Pupils relatively equal size. Ears: External ears normal. No signs or trauma or infection. Nose: Nasal mucosal pink and moist, No discharge or congestion. Normal appearance of the soft tissue of the nose. Throat: Lips moist, Teeth and gums in good condition. Neck: Moderate swelling noted in the left side of the neck, upper cervical chain with some tenderness. No significant thyroid enlargement or tenderness. Respiratory: Clear to auscultation bilaterally, no wheezes, rhonchi or crackles. Good breaths sounds throughout lung de luna. Cardiovascular: Regular rate and rhythm, no murmurs. Normal S1, S2. Musculoskeletal: No gross deformities or malalignment, normal ambulation. Extremities: No swelling, no deformity. Skin: Warm and dry, no rashes. Neurological: Cranial nerves II-VII grossly intact, no gross neurologic abnormalities or focal defects. Psychiatric: Cooperative, pleasant, no signs of major mood disorder. documented in this encounterEllett [facility] [id number] Evaluation note* Diagnosis Onset Date Resolution Status Admit Date Dyspepsia acuteAugust 22, 2024 10:26amDysphagiaacuteMay 2024 10:26amEsophagitisacute May 2024 10:26amGastritisacuteMay 2024 10:26amGERD (gastroesophageal reflux disease)acuteAugust 22, 2024 10:26am [facility] Work Phone: 1(879) 365-515405-14-2025 Telephone encounter Note* Telephone Encounter - Alexandra Henderson LPN - 08/15/2024 4:16 PM EDT Prior authorization for Rinvoq initiated on Cover My Meds. Pending. [facility]05-14-2025 Miscellaneous Notes* Telephone Encounter - Alexandra Henderson LPN - 08/15/2024 4:16 PM EDT Prior authorization for Rinvoq initiated on Cover My Meds. Pending. documented in [facility] encounterJoint [facility] Telephone encounter Note * Telephone Encounter - Samantha Moctezuma LPN - 08/06/2024 12:10 PM EDT Called and spoke to patient and asked for clarification she stated if a letter could be written in regards to her Health issues and limitation for Disability from Social Security I asked if she had forms to fill out and she stated no because I let her know that we usually get form in regards to this I asked about what limitation she stated she has had knee surgeries and hand surgeries and I askedif that was what she is having limitations are she stated no could not get clear clarification on that, I let her know that I am not sure if Dr. No could do this but would send him the message, also let her know that this could not be e-mailed to her we could send it through my chart or mail it and she stated she would like this mailed to her I also let her know that Dr. No will not be back in the office until Tuesday08/08/2024 patient gave verbal understanding [facility]05-05-2025 Miscellaneous Notes* Telephone Encounter - Samantha Moctezuma LPN - 08/06/2024 12:10 PM EDT Called and spoke to patient and asked for clarification she stated if a letter could be written in regards to her Health issues and limitation for Disability from Social Security I asked if she had forms to fill out and she stated no because I let her know that we usually get form in regards to this I asked about what limitation she stated she has had knee surgeries and hand surgeries and I askedif that was what she is having limitations are she stated no could not get clear clarification on that, I let her know that I am not sure if Dr. No could do this but would send him the message, also let her know that this could not be e-mailed to her we could send it through my chart or mail it and she stated she would like this mailed to her I also let her know that Dr. No will not be back in the office until Tuesday08/08/2024 patient gave verbal understanding documented in [facility] encounterJoint [facility] [place] [address] Gastroenterology H&P Signed Patient: Caty Hills MR#: [id number] : 1960 Acct:[id number] Age/Sex: 64 / F Adm Date: Loc: Room: Type: [facility] Attending Dr: Rashaad Aaron MD Copies to: Rashaad Aaron MD Anibalkay Juan, DO~ Date of Service: 08/03/2024 HISTORY & PHYSICAL: Patient's history with special attention to the cardiovascular, pulmonary systems and the current problem was reviewed with the patient immediately prior to the procedure. Present medications and doses reviewed in the EMR. Allergies and pertinent laboratory tests were also re viewedat this time in the EMR. The physical examination, as below, was then performed. Indication, assessment and HPI: 64-year-old female here for EGD for evaluation of dysphagia Family history of GI malignancy? No PHYSICAL EXAMINATION General appearance: NAD Skin: No jaundice Head: NC/AT Eyes: Anicteric Neck: Supple Lungs: Normal respiratory effort, no use of accessory muscles Abdomen: nondistended Neuro: Ox3. REVIEW OF SYSTEMS Constitutional: Denies malaise, fevers Cardiovascular: Denies chest pain, palpitations Respiratory: Denies shortness of breath, wheezing Gastrointestinal: As per HPI Genitourinary: Denies dysuria, polyuria Musculoskeletal: Denies joint swelling, joint stiffness Neurological: Denies confusion, numbness, tingling Endocrine: Denies fatigue Written informed consent obtained from the patient. Risks (including but not limited to perforation, infection, bloating, bleeding, need for emergent surgeryand loss of life), benefits and alternatives explained and questions answered. The patient verbalized understanding. Based on history patient is an appropriate candidate for the procedure. Rashaad Aaron M.D. Documented By: Rashaad Aaron MD 08/03/24823 Signed By: 08/03/24823 [facility]05-02-2025 [place] [address] EGD Procedure Note Signed Patient: Caty Hills MR#: [id number] : 1960 Acct:[id number] Age/Sex: 64 / F Adm Date: 5 Loc: Room: Type: [facility] Attending Dr: Rashaad Aaron MD Copies to: Rashaad Aaron MD Anibal Juan, ~ Esophagogastroduodenoscopy Date/Provider Date: 08/03/2024 Rashaad Aaron MD Procedure Findings: Procedure: EGD with biopsy Indication: 64-year-old female here for EGD for evaluation of dysphagia Pre-operative diagnosis: Dysphagia Post-operative diagnosis: Mild gastritis Sedation: propofol per anesthesia dept O2 oximetry, hemodynamic monitoring was performed pre, during, and post procedure. Patient was identified, H&P completed, patient was given full explanation of the procedure as well as associatedrisks and written consent wasobtained prior to procedure. Patient expressed complete understanding of the procedure as well as alternatives to the procedure and to anesthesia and agreed to proceed with the procedure as indicated. Patient was immediately reassessed prior to IV sedation. Following IV sedation, patient was placed in the left lateral decubitus position. Bite block was inserted. Endoscope was passed through the mouth, into the esophagus. Endoscope was advanced into the stomach through the pyloricchannel and into the 2nd portion of duodenum by direct visualization. Endoscopewas withdrawn into the stomach and retroflexion was performed. The endoscope was straightened,the stomach was decompressed. Endoscope was withdrawn into the esophagus then completely removed with the findings as below. Findings: DUODENUM: bulb and descending portion appeared normal. Biopsies were done usingbiopsy forceps to assess for celiac. STOMACH: Mild erythematous mucosa noted in the antrum otherwise pyloric channel,antrum, body, fundus and cardia, including retroflexed views appear normal. Biopsies were done using biopsy forceps to assess for H. pylori. ESOPHAGUS: Diaphragmatic hiatus was 38 cm from incisors and GE junction (upper margin of gastric folds) was at 38 cm from incisors. Squamocolumnar junction was at 38 cm from incisors. Mucosa appearednormal. Biopsies were done from proximal esophagus and distal esophagus using biopsy forceps to assess for eosinophilic esophagitis. Biopsy taken: Yes Complications: None EBL: Minimal Recommendations: -Follow up pathology - Follow-up in office Following a period of recovery, patient was seen and given full explanation of the procedure. Patient tolerated the procedure well and will be discharged in satisfactory, stable condition. Rashaad Aaron M.D. Documented By: Rashaad Aaron MD 08/03/24 0824 Signed By: 08/03/[address] [place], [place] [id number] NoteUT Electrophysiology Consult Note [facility] Reason for visit: 07/24/24 S/p EPS. Patient states she is to tired for her own liking. Patient states she has excessive sweating and fatigue. Patient states she has a lot of pain in the side of her neck x 4 to 6 months, the last 3 months she complains of more pain that goes across the back of her along with an increase in headaches. Denies chest pain, SOB, palpitations. LOOP reveals NCT which lasted for 7min on 06/19/23 and 7 sec on 06/25/24 04/18/24 Pt had LOOP implant which has revealed several episodes of SVT. She has symptoms with these and has CP. Prior HPI: Caty Hills is a 64 y.o. year old with past medical history of hypertension, rheumatoid arthritis, Presented to us for episodes of syncope. She is a former [facility] Patient and was seen by them in September 2023. Says she had full neuro workup with and says it wasn't neurological related. She has been losing weight unintentionally the past year or so. Had echo in Jan 2023. Gets chest pain prior to syncopal episodes. Pain radiates to arm and back and sometimes jaw. Her episodes of palpitations started about 5 years ago and she noted these episodes lasting anywhere up to 30 seconds to 2 minutes. She is markedly symptomatic at this time with episodes of presyncope and chest pain. She was evaluated by Dr [facility] [place] and she had performed event monitor which was notable for atrial tachycardia, although strips are not available for me to review. She was subsequently placed on beta-blockers which did help to some extent. However now she is experiencing breakthrough episodes and has come for a second opinion. PMH: Past Medical History: Diagnosis Date Anxiety Chronic fatigue syndrome DDD (degenerative disc disease), lumbar Depression Fibromyalgia GERD (gastroesophageal reflux disease) Hypertension Hypokalemia Immunocompromised Irritable bowel syndrome Knee osteoarthritis Obesity, unspecified PONV (postoperative nausea and vomiting) RA (rheumatoid arthritis) (CMS/HCC) Rheumatoid arthritis involving multiple sites with positive rheumatoid factor (CMS/HCC) SVT (supraventricular tachycardia) Syncope PSH: Past Surgical History: Procedure Laterality Date BACK SURGERY CARPAL TUNNEL RELEASE HYSTERECTOMY JOINT REPLACEMENT Right 11/28/2023 [facility] [place] [facility]THROP[LASTY WITH TENDON TRANSFER WITH CARPECTOMY OF TRAPEZOID REPLACEMENT TOTAL KNEE ONCOLOGIC Bilateral SH: Social Determinants of Health Tobacco Use: Medium Risk (07/24/2024) Patient History Smoking Tobacco Use: Former Smokeless Tobacco Use: Never Passive Exposure: Past Alcohol Use: Not At Risk (05/07/2024) Received from [facility] AUDIT-C Frequency of Alcohol Consumption: Never Average Number of Drinks: Patient does not drink Frequency of Binge Drinking: Never Financial Resource Strain: Not on file Food Insecurity: Not on file Transportation Needs: Not on file Physical Activity: Not on file Stress: Not on file Social Connections: Not on file Intimate Partner Violence: Not At Risk (04/18/2024) Humiliation, Afraid, Rape, and Kick questionnaire Fear of Current or Ex-Partner: No Emotionally Abused: No Physically Abused: No Sexually Abused: No Depression: Not at risk (04/18/2024) PHQ-2 PHQ-2 Score: 2 Housing Stability: Not on file Utilities: Not on file Health Literacy: Not on file Allergies: Allergies Allergen Reactions Tofacitinib Diarrhea Weight: 105kg Visit Vitals BP 124/84 (BP Location: Right arm, Patient Position: Sitting) Pulse 93 Ht 1.702 m (5' 7 ) Wt 105 kg (232 lb) SpO2 96% BMI 36.34 kg/m??? OB Status Postmenopausal Smoking Status Former BSA 2.23 m??? Meds: Current Outpatient Medications on File Prior to Visit Medication Sig Dispense Refill escitalopram (Lexapro) 20 mg tablet Take 20 mg by mouth at bedtime. fluticasone (Flonase) 50 mcg/actuation nasal spray Administer 1 spray into each nostril if needed for allergies or rhinitis. hydroxychloroquine (Plaquenil) 200 mg tablet Take 200 mg by mouth in the morning. meloxicam (Mobic) 15 mg tablet Take 15 mg by mouth in the morning. metoprolol succinate XL (Toprol-XL) 50 mg 24 hr tablet Take 25 mg by mouth two times daily. mirabegron 50 mg tablet extended release 24 hr Take 50 mg by mouth in the morning. multivitamin tablet Take 1 tablet by mouth in the morning. oxyBUTYnin (Ditropan) 5 mg tablet Take 10 mg by mouth three times daily. pantoprazole (ProtoNix) 40 mg packet Take 40 mg by mouth before breakfast and before evening meal. plecanatide (Trulance) tablet tablet Take 3 mg by mouth in the morning. potassium chloride CR (Klor-Con M20) 20 mEq ER tablet Take 40 mEq by mouth in the morning. predniSONE (Deltasone) 5 mg tablet Take 15 mg by mouth if needed each day. pregabalin (Lyrica) 50 mg capsule Take 50 mg by m (more content not included)... [facility]04-15-2025 Evaluation note* Diagnosis Onset Date Resolution Status Admit Date Colon polyps acuteApril 2024 10:17amDyspepsiaacuteApril 2024 10:17amDysphagia acuteApril 2024 10:17amGERD (gastroesophageal reflux disease)acuteApril 2024 10:17amRheumatoid arthritisacuteApril 2024 10:17am [facility] Work Phone: 1([phone]) 401-599203-06-2025 NoteHNO ID: [id number] Author: CHRIS NO MD Service: ? Author Type: Physician Type: Progress Notes Filed: 06/07/2024 11:10 Note Text: Rheumatology Outpatient Clinic Date of Service: 06/07/2024 Patient: Caty Hills Medical Record: [id number] Primary Care Physician: Anibal Juan DO, DO Last Rheumatology visit: 03/08/2024 (with Chris No) History of Present Illness Caty Hills is a 64 year old White female who presents on 06/07/2024 for an in-person visit for evaluation of Rheumatoid Arthritis (Caty Hills is a 64 year old Female who presents for a 3 Month Follow Up for Rheumatoid Arthritis. She states that she had flu and it caused her to have a flare up, she has been doing ok and the Renvoke appears to be working well with no side effects.). She is currently taking hydroxychloroquine sulfate, meloxicam, prednisone, upadacitinib. Her most recent CHERIE was negative (07/11/2020). HISTORY OF PRESENT ILLNESS This patient is known to me from my previous practice with [facility] with diagnosis of rheumatoid arthritis. This patient has been on DMARD therapy in the past with methotrexate and has not tolerated it well. She had been on a sequence of Biologics and when last seen in May 2021 was on Rinvoq 15 mg daily and doing well. Then in June 2021 that she developed a bout of iritis. She was being seen by a different real estate specialist with [facility] and switch her off of Rinvoq and placed her on Humira for the iritis. The patient has tolerated the Humira and it is improved her iritis. She has not needed to be on topical steroid treatment for her eyes in several months now. She does get some breakthrough discomfort in her eyes but no full-blown iritis. Where is a bigger problem is off of the Rinvoq she is had escalation of rheumatoid arthritis activity in her hands, wrists, shoulders, right knee and toes despite being on the Humira. Her other real estate specialist is even attempted to place methotrexate in combination with the Humira and this did not improve her rheumatoid arthritis and she felt ill on the methotrexate and has discontinued it. She was inquiring as to whether or not she would be allowed to go back onto the Rinvoq. Aside from the iritis she has not experienced any other extra-articular manifestations of rheumatoid arthritis. She shares with me that she had her right knee replaced 3 months ago and it is not doing as well as the left knee did from 2-1/2 years ago. The right knee remains quite swollen and painful and she believes the rheumatoid arthritis may be contributing to the right knee pain. INTERVAL HISTORY Patient returns for reevaluation and management of her rheumatoid arthritis. Since last visit patient has initiated Rinvoq along with hydroxychloroquine 400 mg daily and meloxicam 15 mg daily. She is tolerating the Rinvoq well. She feels she is doing well enough that she has held out the hydroxychloroquine for the past month and not experiencing any increased joint pain. In fact most of her joints are doing better than she can remember in some time now. She is also on a new antidepressant and she believes this is helping in terms of her disposition as well as some pain modulation. There are no new extra-articular manifestations of rheumatoid arthritis. Her general health has been unchanged from last visit. Rheum/Ortho Arthrocentesis Injections (last 5) 03/02/2023 12:44 Injection History Location thumb Thumb Site R thumb [facility] Patient-Entered Data PAIN EVALUATION No data found in the last 1 encounters. PROMIS Assessments 07/31/2023 PROMIS Assessments Physical Health Percentile 10 Mental Health Percentile 26 Pain Score 3 Pain Interference Percentile 4 Fatigue Percentile 10 Physical Function Percentile 7 RAPID 3 [place] Activities of Daily Living 07/31/2023 3:09 PM Dress self? With SOME difficulty Get in and out of bed? With SOME difficulty Walk outdoors? With SOME difficulty Wash and dry body? Without ANY difficulty Get in and out of car? With SOME difficulty RAPID 3 Disease Activity Weighed Score Levels: 0 - 1: Near Remission 1.3 - 2.0: Low Severity 2.3 - 4.0: Moderate Severity 4.3 - 10.0: High Severity 07/31/2023 RAPID-3 Weighed Score RAPID 3 Weighed Score 4.83 (High severity ) Review of Systems Review of Systems CONSTITUTION: Negative for: Weight loss or gain, Fever. Chills, Night sweats HEENT: Negative for: Nosebleeds, Mouth sores, Trouble swallowing, Dry mouth RESPIRATORY: Negative for: Cough, Shortness of breath, Pain with breathing, Coughing up blood GASTROINTESTINAL: Negative for: Melena, Diarrhea, Abdominal pain, Heartburn, MUSCULOSKELETAL: Positive for: Arthralgias and Myalgias Negative for: Muscle weakness, Joint swelling and Morning Joint Stiffness NEUROLOGICAL: Negative for: Headaches, Numbness, Memory loss, SKIN: Negative for: Rashes, Sun sensitive rashes, Skin (more content not included)...[facility]03-06-2025 History of Present illness Narrative* Chris No MD - 06/07/2024 10:55 AM EST Images from the original note were not included. Rheumatology Outpatient Clinic Date of Service: 06/07/2024 Patient: Caty Hills Medical Record: [id number] Primary Care Physician: Anibal Juan, DO, DO Last Rheumatology visit: 03/08/2024 (with Chris No) History of Present Illness Caty Hills is a 64 year old White female who presents on 06/07/2024 for an in-person visit for evaluation of Rheumatoid Arthritis (Caty Hills is a 64 year old Female who presents for a 3 Month Follow Up for Rheumatoid Arthritis. She states that she had flu and it caused her to have a flare up, she has been doing ok and the Renvoke appears to be working well with no side effects.). She is currently taking hydroxychloroquine sulfate, meloxicam, prednisone, upadacitinib. Her most recent CHERIE was negative (07/11/2020). HISTORY OF PRESENT ILLNESS This patient is known to me from my previous practice with [facility] with diagnosis of rheumatoid arthritis. This patient has been on DMARD therapy in the past with methotrexate and has not tolerated it well. She had been on a sequence of Biologics and when last seen in May 2021 wason Rinvoq 15 mg daily and doing well. Then in June 2021 that she developed a bout of iritis. She was being seen by a different real estate specialist with [facility] and switch her off of Rinvoq and placed her on Humira for the iritis. The patient has tolerated the Humira and it is improved her iritis. She has not needed to be on topical steroid treatment for her eyes in several months now. She does get some breakthrough discomfort in her eyes but no full-blown iritis. Where is a bigger problem is off of the Rinvoq she is had escalation of rheumatoid arthritis activity in her hands, wrists, shoulders, right knee and toes despite being on the Humira. Her other real estate specialist is even attempted to place methotrexate in combination with the Humira and this did not improve her rheumatoid arthritis and she felt ill on the methotrexate and has discontinued it. She was inquiring as to whether or not she would be allowed to go back onto the Rinvoq. Aside from the iritis she has not experienced any other extra- articular manifestations of rheumatoid arthritis. She shares with me that she had her right knee replaced 3 months ago and it is not doing as well as the left knee did from 2-1/2 years ago. The right knee remains quite swollen and painful and she believes the rheumatoid arthritismay be contributing to the right knee pain. INTERVAL HISTORY Patient returns for reevaluation and management of her rheumatoid arthritis. Since last visit patient has initiated Rinvoq along with hydroxychloroquine 400 mg daily and meloxicam 15 mg daily. She istolerating the Rinvoq well. She feels she is doing well enough that she has held out the hydroxychloroquine for the past month and not experiencing any increased joint pain. In fact most of her joints are doing better than she can remember in some time now. She is also on a new antidepressant and she believes this is helping in terms of her disposition as well as some pain modulation. There are no new extra-articular manifestations of rheumatoid arthritis. Her general health has been unchanged f rom last visit. Rheum/Ortho Arthrocentesis Injections (last 5) 03/02/2023 12:44 Injection History Location thumb Thumb Site R thumb [facility] Patient-Entered Data PAIN EVALUATION No data found in the last 1 encounters. PROMIS Assessments 07/31/2023 PROMIS Assessments Physical Health Percentile 10 Mental Health Percentile 26 Pain Score 3 Pain Interference Percentile 4 Fatigue Percentile 10 Physical Function Percentile 7 RAPID 3 [place] Activities of Daily Living 07/31/2023 3:09 PM Dress self? With SOME difficulty Get in and out of bed? With SOME difficulty Walk outdoors? With SOME difficulty Wash and dry body? Without ANY difficulty Get in and out of car? With SOME difficulty RAPID 3 Disease Activity Weighed Score Levels: 0 - 1: Near Remission 1.3 - 2.0: Low Severity 2.3 - 4.0: Moderate Severity 4.3 - 10.0: High Severity 07/31/2023 RAPID-3 Weighed Score RAPID 3 Weighed Score 4.83 (High severity ) Review of Systems Review of Systems CONSTITUTION: Negative for: Weight loss or gain, Fever. Chills, Night sweats HEENT: Negative for: Nosebleeds, Mouth sores, Trouble swallowing, Dry mouth RESPIRATORY: Negative for: Cough, Shortness of breath, Pain with breathing, Coughing up blood GASTROINTESTINAL: Negative for: Melena, Diarrhea, Abdominal pain, Heartburn, MUSCULOSKELETAL: Positive for: Arthralgias and Myalgias Negative for: Muscle weakness, Joint swelling and Morning Joint Stiffness NEUROLOGICAL: Negative for: Headaches, Numbness, Memory loss, SKIN: Negative for: Rashes, Sun sensitive rashes, Skin color changes, Hair loss, Nail changes EYES: Negative for: Eye pain, Eye redness, Visual disturbance, Eye dryness CARDIOVASCULAR: Negative for: Chest pain, Leg swelling, Arrhythmia, Presyncope GENITOURINARY: Negative for: Dysuria, Hematuria, Ulceration HEMATOLOGIC/LYMPHATIC: Negative for: Swollen glands All other reviewed and negative other than HPI. Past Medical History PAST MEDICAL HISTORY Diagnosis Date Anxiety Class 2 obesity in adult Heart palpitations Hypertension Hypokalemia NONE Rheumatoid arthritis (HCC) Seizure-like activity (HCC) SVT (supraventricular tachycardia) (HCC) Traumatic brain injury (HCC) slipped on ice and hit head on concrete and passed out for 2 min in 2009 Past Surgical History PAST SURGICAL HISTORY Procedure Laterality Date ANESTHESIA VAGINAL HYSTERECTOMY INCL BIOPSY 1996 ENDOMETRIOSIS, PAIN , CYSTS BACK SURGERY HX 2014 spinal fusion with screws CARPAL TUNNEL RIGHT WRIST 1996 RIGHT AND LEFT WRIST CONIZATION CERVIX W/WO D&C RPR KNIFE/LASER 1994 DYSPLASIA DILATION & CURETTAGE DX&/THER NONOBSTETRIC Dilation & curettage DILATION & CURETTAGE DX&/THER NONOBSTETRIC Dilation & curettage KNEE SURGERY HX PAST SURGICAL HISTORY OF 1978 REMOVAL OF BENIGN CYST RIGHT NECK Family History FAMILY HISTORY Problem Relation Age of Onset Thyroid Mother Coronary Artery Disease Mother Arthritis Mother Asthma Mother Hypertension Mother Cancer Mother Arrythmias Mother Afib Heart Failure Mother CHF-cause of Stroke Mother Diabetes Mother Cancer Father testicular cancer Heart disease Half-sister Thyroid Brother Hypertension Brother Heart disease Maternal Grandmother Heart disease Maternal Grandfather Cancer Paternal Grandmother bone Breast Cancer Paternal Grandmother Heart disease Paternal Grandfather Mental illness Daughter Multiple Sclerosis Son Schizophrenia Paternal Aunt Social History Social History Tobacco Use Smoking status: Former Current packs/day: 0.00 Average packs/day: 0.5 packs/day for 20.0 years (10.0 ttl pk-yrs) Types: Cigarettes Start date: 09/19/1980 Quit date: 09/19/2000 Years since quittin.7 Smokeless tobacco: Never Vaping Use Vaping status: Never Used Substance Use Topics Alcohol use: Yes Comment: social Drug use: No Current Medications Current Outpatient Medications Medication Sig upadacitinib tablet ER 24 hr 15 mg (RINVOQ) Take 1 tablet by mouth once daily. predniSONE (DELTASONE) 5 mg tablet TAKE UP TO TAKE THREE TABLETS BY MOUTH DAILY NEEDED atogepant (QULIPTA) 60 mg tablet Take 60 mg by mouth once daily. hydrOXYchloroQUINE (PLAQUENIL) 200 mg tablet Take two tabs by mouth daily meloxicam (MOBIC) 15 mg tablet take 1 tablet by mouth daily metoprolol tartrate, short acting, (LOPRESSOR) 50 mg tablet Take 25 mg by mouth twice daily. multivitamin tablet Take 1 tablet by mouth once daily. ascorbic acid, vitamin C, (VITAMIN C) 500 mg tablet Take 1 tablet by mouth two times a day with meals. Valsartan-hydroCHLOROthiazide 160-25 mg per tablet Take 1 tablet by mouth once daily. escitalopram oxalate (LEXAPRO) 20 mg tablet Take 20 mg by mouth daily at bedtime. QUEtiapine (SEROQUEL) 25 mg tablet Take 25 mg by mouth at bedtime as needed. Take 1-2 tabs as needed for sleep Vautpxxrzntgi-Cmdecyuy-Vqstfl (MULTIVITAMIN 50 PLUS) tab Take 1 tablet by mouth once daily. pantoprazole DR (PROTONIX) 40 mg tablet Take 40 mg by mouth once daily. No current facility-administered medications for this visit. Last Ophthalmology Check for Plaquenil (Hydroxychloroquine) Last OCT Macula Exam No resulted procedures found. Last Visual Field Exam No resulted procedures found. Labs Latest Ref Rng & Units 03/08/2024 08/01/2023 05/26/2023 02/03/2023 CBC WBC 3.70 - 11.00 k/uL 6.75 5.89 5.84 6.03 Hemoglobin 11.5 - 15.5 g/dL 13.8 12.7 12.2 11.9 Hematocrit 36.0 - 46.0 % 41.0 38.9 36.3 35.7 Platelet Count 150 - 400 k/uL 222 204 222 235 Abs Neut (ANC) 1.45 - 7.50 k/uL 5.36 2.89 3.06 1.93 Abs Lymph 1.00 - 4.00 k/uL 1.00 2.21 1.87 3.45 Latest Ref Rng & Units 03/08/2024 08/01/2023 05/26/2023 02/03/2023 CMP Sodium 136 - 144 mmol/L 137 138 140 Potassium 3.7 - 5.1 mmol/L 4.7 4.4 3.8 Chloride 98 - 107 mmol/L 102 102 103 CO2 22 - 30 mmol/L 21 25 25 Glucose 74 - 99 mg/dL 93 91 105 BUN 7 - 21 mg/dL 19 21 17 Creatinine 0.58 - 0.96 mg/dL 0.80 0.75 0.90 0.73 Calcium 8.5 - 10.2 mg/dL 9.4 9.3 9.0 AST 13 - 35 U/L 23 18 24 21 ALT 7 - 38 U/L 17 15 21 14 Alkaline Phosphatase 34 - 123 U/L 63 73 61 Latest Ref Rng & Units 08/01/2023 05/26/2023 02/03/2023 04/06/2022 ESR, WSR WSR 0 - 20 mm/hr 8 9 5 15 Latest Ref Rng & Units 05/26/2023 07/11/2020 12/21/2002 CRP CRP <0.9 mg/dL 0.7 <0.3 0.9 Latest Ref Rng & Units 12/21/2002 CK CK 30 - 220 U/L 76 Latest Ref Rng & Units 03/08/2024 05/26/2023 04/06/2022 Hepatitis Screen Hep B Surface Ag Negative Negative Negative Negative 03/08/2024 05/26/2023 04/06/2022 TB Screen TB Interpretation Infection with M. tuberculosis complex is unlikely. If latent tuberculosis infection is highly suspected, a negative result does not rule out the infection. Specimens from immunocompromised patients and those <5 years of age may show false negative results. In case of a contactinvestigation, please repeat 8-12 weeks after a known exposure. Infection with M. tuberculosis complex is unlikely. If latent tuberculosis infection is highly suspected, a negative result does not rule out the infection. Specimens from immunocompromised patients and those <5 years of age may show false negative results. In case of a contact investigation, please repeat 8-12 weeks after a knownexposure. Infection with M. tuberculosis complex is unlikely. If latent tuberculosis infection is highly suspected, a negative result does not rule out the infection. Specimens from immunocompromisedpatients and those <5 years of age may show false negative results. In case of a contact investigation, please repeat 8-12 weeks after a known exposure. TB Result Negative Negative Negative Latest Ref Rng & Units 01/18/2021 07/11/2020 01/30/2003 Antibodies CHERIE by EIA OD Ratio 0.4 0.6 CHERIE by EIA, Qual Negative Negative Sm Antibody <1.0 AI <0.2 Ribosomal [employer] <1.0 AI <0.2 Chromatin Antibody <1.0 AI 0.2 SSA Antibody <1.0 AI <0.2 SSB Antibody <1.0 AI <0.2 MINE [employer]ATOR Antibody <1.0 AI <0.2 Scleroderma Ab, IgG <1.0 AI <0.2 Centromere Ab <1.0 AI <0.2 SOHA-1 ANTIBODY, IGG <1.0 AI <0.2 PT Sec 9.7 - 13.0 sec 10.3 PT INR 0.9 - 1.3 1.0 APTT 23.0 - 32.4 sec 24.2 Imaging Last XR Hand/Finger - Impression Only XR HAND GENERAL 3V PA/LAT/OBL RIGHT Exam End: 09/01/2023 10:30 AM (Final result) Impression: *No fracture. Remote deformity consistent with prior trauma in the the ulnar styloid. Scattered distal degenerative changes. No erosions. First carpometacarpal, radiocarpal, and distal radial ulnar joint degenerative changes are present. No malalignment. Electronically signed: Anibal Larsen MD. Last MRI Hand - Impression Only No resulted procedures found. Last XR Chest - Impression Only XR CHEST 1V FRONTAL PORT Exam End: 12/30/2018 12:50 PM (Final result) Impression: IMPRESSION: No infiltrate. ... Last XR Cervical Spine - Impression Only No resulted procedures found. Health Maintenance Current Immunizations Reviewed on 04/06/2022 Name Date COVID-19 vaccine, monovalent (MODERNA) 08/22/2020, 07/23/2020 pneumococcal (PCV20) vaccine 08/20/2021 Physical Exam GENERAL APPEARANCE: Well groomed. Alert and oriented x 3. In no distress. VITAL SIGNS: BP 107/69 Pulse 55 Resp 18 Ht 5' 7 (1.70m) Wt 223 lb (101.2kg) BMI 34.92 kg/(m^2). SKIN: No rash, thickening, nodules, discoloration. EYES: PERRL, EOMI. No inflammation seen. HENT: External examination and palpation of the ears and nose normal. Lips, teeth, and gums normal.Oropharynx and tongue normal. No lesions or exudate. NECK: No mass or asymmetry. RESPIRATORY: Normal respiratory effort. Clear to auscultation and percussion. CARDIOVASCULAR: Heart RRR without gallop, murmur, or rub. No bruits across chest or neck. EXTREMITIES: Normal and equal pulses in all 4 extremities. No edema. ABDOMEN: BS normal. No bruits, No tenderness, mass, or hepatosplenomegaly. NEUROLOGIC: Sensory exam normal. MUSCULOSKELETAL EXAMINATION: Soft tissue tender points: None Motor exam: Normal 5+/5+ muscle strength. Normal bulk and tone. Cervical spine: No visible abnormalities. Full ROM. No tenderness to palpation. Thoracic spine: No visible abnormalities. No tenderness to palpation. Lumbar spine: No visible abnormalities. Full ROM. No tenderness to palpation. Joint Exam 06/07/2024 The following joints were examined and normal: Left Sternoclavicular, Right Sternoclavicular, Left Acromioclavicular, Right Acromioclavicular, Left Glenohumeral, Right Glenohumeral, Left Elbow, Right Elbow, Left Wrist, Right Wrist, Left MCP 1, Right MCP 1, Left MCP 2, Right MCP 2, Left MCP 3, Right MCP 3, Left MCP 4, Right MCP 4, Left MCP 5, Right MCP 5, Left IP (thumb), Right IP (thumb), Left PIP 2 (finger), Right PIP 2 (finger), Left PIP 3 (finger), Right PIP 3 (finger), Left PIP 4 (finger), Right PIP 4 (finger), Left PIP 5 (finger), Right PIP 5 (finger), Left Knee, Right Knee, Left Ankle, Right Ankle, Left MTP 1, Right MTP 1, Left MTP 2, Right MTP 2, Left MTP 3, Right MTP 3, Left MTP 4, Right MTP 4, Left MTP 5, Right MTP 5 Joint Exam Data (across time) 06/07/2024 03/08/2024 12/26/2023 10/24/2023 08/01/2023 Joint Exam Total Tender 0 15 15 17 17 Total Swollen 0 0 0 5 5 Impression Diagnoses: (M05.79) Rheumatoid arthritis involving multiple sites with positive rheumatoid factor (HCC) (primary encounter diagnosis) (Z79.899) High risk medication use (Z86.69) H/O iritis Plan Orders this visit: No orders found for this visit on 06/07/24. Discussed current status of rheumatoid arthritis as active on current treatment with Rinvoq 15 mg daily. She is to continue off the hydroxychloroquine going forward to see if she can maintain Rinvoq as monotherapy. Her current supply of Rinvoq is stable. She will use prednisone very sparingly and has a reasonably good supply of prednisone at this time. I reviewed recent CBC was stable and her BMPwas stable. I will hold on liver assessment at present and we will reassess at next visit. Overall she is doing well and satisfied we will maintain this approach with the Rinvoq. Return in about 3 months (around 09/07/2024). I spent a total of 30 minutes on the date of the service which included preparing to see the patient, [id number] patient care, completing clinical documentation, obtaining and/or reviewing separately obtained history, performing a medically appropriate examination, counseling and educating the pat ient/family/caregiver, independently interpreting results (not separately reported), and communicating results to the patient/family/caregiver. Medical Decision Making: Problems: Low: Stable chronic illness Data: Unique test result(s) reviewed: 3+ Risk: High: High risk from testing/treatment Medical Decision Making Level: 4 - Moderate Chris No MD Rheumatology Date: June 07, 2024 Time: 10:55 AM documented in [facility] Telephone encounter Note * Telephone Encounter - Alexandra Henderson LPN - 05/30/2024 11:04 AM EST Order peended for new pharmacy due to change in insurance. [facility] Miscellaneous Notes* Telephone Encounter - Alexandra Henderson LPN - 05/30/2024 11:04 AM EST Order peended for new pharmacy due to change in insurance. documented in this encounterJoint [facility]25 NoteCOMPREHENSIVE EP STUDY PROCEDURE NOTE DATE OF PROCEDURE: 05/23/2024 PERFORMING PHYSICIAN: Dr. Michelle Núñez INDICATIONS FOR PROCEDURE: 1. History of SVT. CONSENT: Patient LOCATION: EP Lab PROCEDURAL SEDATION: Versed and Fentanyl. Monitoring: Cardiac telemetry, Blood pressure, continuous pulse oxymetry. Moderate sedation was administered by the sedation nurse under my supervision. Intraprocedural face to face sedation time: 67min. FLUROSCOPY: 1.9minutes/25mGy EBL: 15cc SPECIMEN REMOVED: None PREPARATION: Preoperative antibiotics was administered. PROCEDURES PERFORMED: 1. Ultrasound guided vascular access for 5Fx2,8Fx2 venous sheaths as documented below in procedure note and image stored in PACS. 2. Comprehensive EP study which includes right atrial recording and pacing, His bundle recording and right ventricular recording and pacing. PROCEDURE NOTE: The risks, benefits and alternatives of the procedure were discussed with the patient and family who agreed to proceed. Please refer to my office consult note for details of the discussion and of indications. Patient was brought to the EP lab in the post absorptive state. A procedural pause was performed verifying the patient, the procedure. The right groin was prepped and draped in the usual sterile fashion. Preoperative antibiotics IV Ancef was administered. Ultrasound was used to image the right femoral veins and it was noted to be patent and this was used for vessel entry as noted below. After infiltration with 1% lidocaine, 4 venous sheath was placed in the right. Details of catheters placed as follows. RFV: 5Fx2 RV: Betty Quad/Thony, CRD-2 - His, 8F x2: EZ steer to CS Once catheter was in position, baseline intervals were noted as follows. At baseline, he was noted to have [place] QRS with normal intervals. Following this, an EP study was performed. MARISELA was noted at 600/240 with concentric retrograde conduction and evidence of retrograde RBBB with absence of retrograde conducting pathway. AV Wenckebach was noted at 310ms with no AV block until AERP. Thereafter, AEST was performed with no evidence of dual AV node physiology. Burst pacing at 240ms induced atrial flutter which degenerated into Afib. After waiting for 5 minutes, patient was cardioverted to sinus. Isuprel was started and increased to 5mcg/min and repeat EP study with and without Isuprel did not induce any tachycardia. Since no SVT was induced, no ablation was performed. Sheaths were removed and hemostasis achieved. The patient appeared to tolerate the procedure well and was returned to his room in stable condition. No complications were immediately observed. AHms 75 HVms 58 VERPms 600/240 VA condunction+ VA Block 350ms AV Wenkebach ms 310 AH jump ms NA AVNERP ms Straight to AERP AERP ms 600/240 POST PROCEDURE DIAGNOSIS 1. EP study with no inducible SVT 2. Atrial flutter that degenerated into Afib which was cardioverted. 3. No evidence of dual AV node physiology. RECOMMENDATIONS: 1. Follow up LOOP monitor to observe for Aflutter/ Afib (not seen before). 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 Use of blood products discussed with patient who. Additional Equipment RequestsUnUC Health02-06-2025 Telephone encounter Note* Telephone Encounter - Marianela Mobley LPN - 05/10/2024 2:51 PM EST Fax sent to [facility] at [phone] including chart notes and lab results as requested for prior authorization of Rinvoq. Fax confirmation received . Fax sent to [facility] at [phone] with new prescription order for Rinvoq. Fax confirmation received. Notification letter from [facility] sent for scanning . [facility]02-[facility] Miscellaneous Notes* Telephone Encounter - Marianela Mobley LPN - 05/10/2024 2:51 PM EST Fax sent to [facility] at [phone] including chart notes and lab results as requested for prior authorization of Rinvoq. Fax confirmation received . Fax sent to [facility] at [phone] with new prescription order for Rinvoq. Fax confirmation received. Notification letter from [facility] sent for scanning . * Telephone Encounter - Marianela Mobley LPN - 05/10/2024 2:34 PM EST Receieved fax from [facility] that states dispensing pharmacy is [facility] for Rinvoq per patients coverage. Prior authorization is required and chart notes and labs results for PA should be faxed to [employer] at [phone]. Requested prescription to be sent to [facility] pharmacy at [phone]. documented in this encounterJoint [facility]02-[facility]-2025 Telephone encounter Note * Telephone Encounter - Marianela Mobley LPN - 05/10/2024 2:34 PM EST [facility] that states dispensing pharmacy is [facility] for Rinvoq per patients coverage. Prior authorization is required and chart notes and labs results for PA should be faxed to [facility] at [phone]. Requested prescription to be sent to [facility] pharmacy at [phone]. [facility]02-[facility] History of Present illness Narrative* Vandana Juan, - 05/07/2024 3:45 PM EST Images from the original note were not included. Caty Hills is a 64 y.o. female presents with chief complaint of URI HPI: Upper Respiratory Infection Patient complains of symptoms of a URI. Symptoms include productive cough, chest tightness, shortness of breath, nasal congestion, post nasal drainage, sore throat, hot and cold spells , fatigue and body aches Onset of symptoms was 1 week ago, and has not improved much since that time. A little better the last couple of days. Treatment to date: toney dm Tested negative for covid on Tuesday SUBJECTIVE: See medication list at the end of the note. Allergies Allergen Reactions Tofacitinib Diarrhea REVIEW OF SYMPTOMS: Review of Systems Constitutional: Positive for chills and fatigue. Negative for fever. HENT: Positive for congestion, ear pain, postnasal drip and sore throat. Respiratory: Positive for cough and shortness of breath. Gastrointestinal: Negative for diarrhea and vomiting. Musculoskeletal: Positive for myalgias. OBJECTIVE: 05/07/2024 3:40 PM 04/17/2024 10:59 AM 03/09/2024 2:04 PM Vitals BMI 35.55 kg/m2 35.24 kg/m2 34.93 kg/m2 Systolic 126 124 143 Diastolic 72 82 88 Heart Rate 76 72 Temp 98.1 F 98.1 F Height (in) 5' 7 5' 7 5' 7 Weight (lb) 227 225 223 Visit Report Report Report Report Physical Exam Constitutional: General: She is not in acute distress. Appearance: Normal appearance. HENT: Right Ear: Tympanic membrane and ear canal normal. Left Ear: Tympanic membrane and ear canal normal. Mouth/Throat: Pharynx: Posterior oropharyngeal erythema present. Eyes: Conjunctiva/sclera: Conjunctivae normal. Cardiovascular: Rate and Rhythm: Normal rate and regular rhythm. Pulmonary: Breath sounds: Normal breath sounds. No wheezing, rhonchi or rales. Lymphadenopathy: Cervical: No cervical adenopathy. Skin: Findings: No rash. ASSESSMENT AND PLAN: Problem List Items Addressed This Visit None Visit Diagnoses Influenza A - Primary Relevant Medications guaiFENesin-codeine (Robitussin-AC) 100-10 MG/5ML syrup Suspect that she has influenza A based on her symptoms. Will give cough medication to help her sleep at night. Supportive care with rest, tylenol, mucinex. She is to call If any problems or not improving. Follow up if symptoms worsen or fail to improve. Patient's Medications New Prescriptions GUAIFENESIN-CODEINE (ROBITUSSIN-AC) 100-10 MG/5ML SYRUP Take 5 mL by mouth 4 (four) times a day as needed for cough for up to 5 days Previous Medications ALBUTEROL HFA 90 MCG/ACT INHALER ATOGEPANT 60 MG TABLET Take 60 mg by mouth in the morning. CALCIUM CARBONATE (OS-ALFONZO) 1250 (500 CA) MG TABLET Daily. CELECOXIB (CELEBREX) 200 MG CAPSULE Take 1 capsule (200 mg) by mouth once per day CHOLECALCIFEROL (VITAMIN D-3) 50 MCG (2000 UT) CAPSULE 1 capsule 1 (one) time each day at the same time. DOCUSATE SODIUM (COLACE) 100 MG TABLET Take 100 mg by mouth 2 (two) times a day as needed ESCITALOPRAM (LEXAPRO) 20 MG TABLET TAKE 1 TABLET BY MOUTH DAILY ESTRADIOL (ESTRACE) 0.1 MG/GM VAGINAL CREAM Insert 1 g into the vagina 2 (two) times a week FLUTICASONE (FLONASE) 50 MCG/ACT NASAL SPRAY 1 (one) time each day at the same time. HYDROXYCHLOROQUINE (PLAQUENIL) 200 MG TABLET Take 200 mg by mouth Daily IBUPROFEN (MOTRIN IB) 200 MG TABLET Take by mouth LEFLUNOMIDE (ARAVA) 10 MG TABLET Take 1tab daily by mouth with food. No alcohol. Hold if on antibiotics or ill. METOPROLOL SUCCINATE XL (TOPROL-XL) 25 MG 24 HR TABLET Take 25 mg by mouth Daily MULTIPLE VITAMIN (MULTI VITAMIN) TABLET 1 (one) time each day at the same time. ONDANSETRON ODT (ZOFRAN-ODT) 4 MG DISINTEGRATING TABLET OXYBUTYNIN XL (DITROPAN-XL) 10 MG 24 HR TABLET Take 1 tablet (10 mg) by mouth Daily Do not crush, chew, or split. PANTOPRAZOLE (PROTONIX) 40 MG EC TABLET 2 (two) times a day PREDNISONE (DELTASONE) 5 MG TABLET Daily as needed PREGABALIN (LYRICA) 50 MG CAPSULE Take 1 capsule (50 mg) by mouth in the morning and 1 capsule (50 mg) in the evening and 1 capsule (50 mg) before bedtime. QUETIAPINE (SEROQUEL) 25 MG TABLET TAKE 1 TABLET BY MOUTH DAILY UPADACITINIB ER (RINVOQ) 15 MG TABLET SUSTAINED-RELEASE 24 HOUR Take 15 mg by mouth in the morning. VALACYCLOVIR (VALTREX) 1 G TABLET VALSARTAN (DIOVAN) 160 MG TABLET TAKE 1/2 TABLET BY MOUTH DAILY Modified Medications No medications on file Discontinued Medications MELOXICAM (MOBIC) 15 MG TABLET I have reviewed and reconciled the history and medication list with the patient today. documented in this encounterEllett Memorial [id number] [place] [address] Colonoscopy Procedure Report Signed Patient: Caty Hills MR#: [id number] : 1960 Acct:[id number] Age/Sex: 64 / F Adm Date: 5 Loc: Room: Type: [facility] Attending Dr: Rashaad Aaron MD Copies to: MD Anibal Ahuja Henri DO Drake~ Colonoscopy Date/Provider 04/25/2024 Rashaad Aaron MD Colonoscopy Findings: Procedure: Colonoscopy with polypectomy with biopsy Indication: 64-year-old female here for colonoscopy for evaluation of diarrhea Pre-operative diagnosis: Diarrhea Post-operative diagnosis: A colonic polyp, diverticulosis, internal hemorrhoids. Sedation: propofol per anesthesia dept O2 oximetry, hemodynamic monitoring was performed pre, during, and post procedure. Patient was identified, H&P completed, patient was given full explanation of the procedure as well as associatedrisks and written consent wasobtained prior to procedure. Patient expressed complete understanding of the procedure as well as alternatives to the procedure and to anesthesia and agreed to proceed with the procedure as indicated. Patient was immediately reassessed prior to IV sedation. Under IV sedation, patient was placed in the left lateral decubitus position. Digital rectal exam was performed and normal. Colonoscope was inserted and passed proximally to the cecum, which was identified by the ileocecal valve, appendiceal orifice and cecal floor. Colonoscope was slowly withdrawnwith the findings as below. Waban bowel prep score was good. Findings: Random colonic biopsies were done using biopsy forceps to assess for microscopic colitis. Terminal ileum: Normal Cecum: Normal. Ascending colon: A 1 mm polyp removed using cold forceps Hepatic flexure: Normal. Transverse colon: Normal. Splenic flexure: Normal. Descending colon: Normal. Sigmoid colon: Diverticulosis Rectum: Normal. Retroflexed views: Rectum did show internal hemorrhoids. Biopsy taken: Yes Complications: None EBL: Minimal Recommendations: -Repeat colonoscopy in 5 years -Follow up pathology. If biopsies are positive for microscopic colitis we will start budesonide -Follow up in the office Following a period of recovery, patient was seen and given full explanation of the procedure. Patient tolerated the procedure well and will be discharged in satisfactory, stable condition. Rashaad Aaron M.D. Documented By: Rashaad Aaron MD 04/25/24 1324 Signed By: 04/25/24 1342 [facility]01-22-2025 History and physical [place] [id number] Gastroenterology H&P Signed Patient: Caty Hills MR#: [id number] : 1960 Acct:[id number] Age/Sex: 64 / F Adm Date: 5 Loc: Room: Type: [facility] Attending Dr: Rashaad Aaron MD Copies to: MD Anibal Ahuja, DO~ Date of Service: 04/25/2024 HISTORY & PHYSICAL: Patient's history with special attention to the cardiovascular, pulmonary systems and the current problem was reviewed with the patient immediately prior to the procedure. Present medications and doses reviewed in the EMR. Allergies and pertinent laboratory tests were also re viewedat this time in the EMR. The physical examination, as below, was then performed. Indication, assessment and HPI: 64-year-old female here for colonoscopy for evaluation of diarrhea Family history of GI malignancy? No PHYSICAL EXAMINATION General appearance: NAD Skin: No jaundice Head: NC/AT Eyes: Anicteric Neck: Supple Lungs: Normal respiratory effort, no use of accessory muscles Abdomen: nondistended Neuro: Ox3. REVIEW OF SYSTEMS Constitutional: Denies malaise, fevers Cardiovascular: Denies chest pain, palpitations Respiratory: Denies shortness of breath, wheezing Gastrointestinal: As per HPI Genitourinary: Denies dysuria, polyuria Musculoskeletal: Denies joint swelling, joint stiffness Neurological: Denies confusion, numbness, tingling Endocrine: Denies fatigue Written informed consent obtained from the patient. Risks (including but not limited to perforation, infection, bloating, bleeding, need for emergent surgeryand loss of life), benefits and alternatives explained and questions answered. The patient verbalized understanding. Based on history patient is an appropriate candidate for the procedure. Rashaad Aaron M.D. Documented By: Rashaad Aaron MD 04/25/24 1323 Signed By: 04/25/24 1324 [facility]01-15-2025 NoteUT Electrophysiology Consult Note [facility] Reason for visit: Palpitations 04/18/24 Pt had LOOP implant which has revealed several episodes of SVT. She has symptoms with these and has CP. Prior HPI: Caty Hills is a 64 y.o. year old with past medical history of hypertension, rheumatoid arthritis, Presented to us for episodes of syncope. She is a former [facility] Patient and was seen by them in September 2023. Says she had full neuro workup with and says it wasn't neurological related. She has been losing weight unintentionally the past year or so. Had echo in Jan 2023. Gets chest pain prior to syncopal episodes. Pain radiates to arm and back and sometimes jaw. Her episodes of palpitations started about 5 years ago and she noted these episodes lasting anywhere up to 30 seconds to 2 minutes. She is markedly symptomatic at this time with episodes of presyncope and chest pain. She was evaluated by Dr [facility] [place] and she had performed event monitor which was notable for atrial tachycardia, although strips are not available for me to review. She was subsequently placed on beta-blockers which did help to some extent. However now she is experiencing breakthrough episodes and has come for a second opinion. PMH: Past Medical History: Diagnosis Date Anxiety Chronic fatigue syndrome DDD (degenerative disc disease), lumbar Depression Fibromyalgia GERD (gastroesophageal reflux disease) Hypertension Hypokalemia Immunocompromised (CMS/HCC) Irritable bowel syndrome Knee osteoarthritis Obesity, unspecified PONV (postoperative nausea and vomiting) RA (rheumatoid arthritis) ([facility]/HCC) Rheumatoid arthritis involving multiple sites with positive rheumatoid factor ([facility]/HCC) SVT (supraventricular tachycardia) ([facility]/HCC) Syncope PSH: Past Surgical History: Procedure Laterality Date BACK SURGERY CARPAL TUNNEL RELEASE HYSTERECTOMY JOINT REPLACEMENT Right 11/28/2023 [facility] ARTHROP[LASTY WITH TENDON TRANSFER WITH CARPECTOMY OF TRAPEZOID REPLACEMENT TOTAL KNEE ONCOLOGIC Bilateral SH: Social Determinants of Health Tobacco Use: Medium Risk (04/18/2024) Patient History Smoking Tobacco Use: Former Smokeless Tobacco Use: Never Passive Exposure: Past Alcohol Use: Not on file Financial Resource Strain: Not on file Food Insecurity: Not on file Transportation Needs: Not on file Physical Activity: Not on file Stress: Not on file Social Connections: Not on file Intimate Partner Violence: Not At Risk (04/18/2024) Humiliation, Afraid, Rape, and Kick questionnaire Fear of Current or Ex-Partner: No Emotionally Abused: No Physically Abused: No Sexually Abused: No Depression: Not at risk (04/18/2024) PHQ-2 PHQ-2 Score: 2 Housing Stability: Not on file Utilities: Not on file Health Literacy: Not on file Allergies: No Known Allergies Weight: 99.8kg Visit Vitals BP 144/84 (BP Location: Right arm, Patient Position: Standing) Pulse 66 Wt 99.8 kg (220 lb) BMI 34.46 kg/m??? OB Status Postmenopausal Smoking Status Former BSA 2.17 m??? Meds: Current Outpatient Medications on File Prior to Visit Medication Sig Dispense Refill docusate sodium (Colace) 100 mg tablet Take 1 tablet (100 mg) by mouth if needed in the morning and at bedtime for constipation for up to 30 doses. 30 tablet 0 escitalopram (Lexapro) 20 mg tablet Take 20 mg by mouth at bedtime. fluticasone (Flonase) 50 mcg/actuation nasal spray Administer 1 spray into each nostril if needed for allergies or rhinitis. hydroxychloroquine (Plaquenil) 200 mg tablet Take 200 mg by mouth in the morning. metoprolol succinate XL (Toprol-XL) 50 mg 24 hr tablet Take 25 mg by mouth two times daily. mirabegron 50 mg tablet extended release 24 hr Take 50 mg by mouth at bedtime. multivitamin tablet Take 1 tablet by mouth in the morning. pantoprazole (ProtoNix) 40 mg packet Take 40 mg by mouth before breakfast and before evening meal. predniSONE (Deltasone) 5 mg tablet Take 15 mg by mouth if needed each day. QUEtiapine (SEROquel) 25 mg tablet Take 25 mg by mouth at bedtime. upadacitinib ER (Rinvoq) 15 mg tablet extended release 24 hr Take 15 mg by mouth in the morning. valsartan (Diovan) 160 mg tablet Take 80 mg by mouth in the morning. No current facility-administered medications on file prior to visit. ROS: Review of Systems Constitutional: Positive for weight loss. Cardiovascular: Positive for chest pain, dyspnea on exertion, irregular heartbeat, near-syncope, palpitations and syncope. Musculoskeletal: Positive for arthritis. Neurological: Positive for dizziness and light-headedness. All other systems reviewed and are negative. Physical Exam: Constitutional General Appearance: well-nourished, well-developed, appears stated age Level of Distress: comfortable Psychiatric Mental Status: alert, normal affect Orie (more content not included)...[facility]01-14-2025 History of Present illness Narrative* Anibal Álvarez Drake, DO - 04/17/2024 11:00 AM EST Images from the original note were not included. Caty Hills is a 64 y.o. female presents with chief complaint of Chief Complaint Patient presents with Back Pain Earache Caty was seen today for back pain and earache. Diagnoses and all orders for this visit: Chronic fatigue syndrome Arthritis, lumbar spine Fibromyalgia Immunocompromised (CMS/HCC) Major depressive disorder, single episode, mild (HCC) (CMS/HCC) Anxiety Obesity (BMI 35.0-39.9 without comorbidity) Rheumatoid arthritis involving multiple sites with positive rheumatoid factor (CMS/HCC) Spondylolisthesis at L4-L5 level Numbness and tingling of both lower extremities Assessment & Plan Anxiety. Her anxiety appears to be exacerbated by her chronic pain. She will continue her current regimen ofLexapro 20 mg daily and Seroquel 25 mg 2-3 times a week. The potential side effects of Seroquel, including sedation and sleepiness, were discussed. She was advised to take Seroquel at night to minimize these effects. If there is no significant improvement in her mood by early next week, discontinuation of Lexapro and initiation of Cymbalta will be considered. I spent a total of 30 minutes or morea date of the service which included preparing to see the patient, [id number] patient care including obtaining/reviewing history and performing appropriate medical examination, completing clinical documentation and coordination of care. Chronic lower back pain. Her chronic lower back pain is likely contributing to her anxiety. She will start Lyrica 150 mg twice daily, with the option to increase to 3 times daily after a few days if no side effects are observed. The potential benefits of Lyrica for nerve and disc pain were discussed. She was also advised to continue using lidocaine patches as needed. Rheumatoid arthritis. She reports a history of rheumatoid arthritis and is currently experiencing a flare-up. She has recently restarted Rinvoq and has noticed slight improvement. She was advised to continue Rinvoq and monitor her symptoms. A prescription for Celebrex was provided to manage inflammation and pain. She was advised to use Celebrex as needed and to monitor for any gastrointestinal side effects. PROCEDURE Procedure Performed Spinal fusion procedure in 2012. ANIBAL JUAN D.O. This note was entered using Tribz[employer]. Grammatical and dictation errors maybe present in translation *I have reviewed and reconciled the history and medication list with the patient today* History of Present Illness Lower back pain has been more consistent over the last 3-4 months. Has been using lidocaine patcheswhich helps temporarily. Has been noticing more pain down her legs that is gradually worsening. Numbness in left foot intermittently. In 2022 she had glue inserted in her back due to a fracture. Bilateral ears feel full all the time. She is questioning if this is related her her RA. Took celebrex yesterday which helped with head feeling full which makes her think it is related to inflammation. Seeing Audiology on 05.14.24 and ENT on 05.18.24 Anxiety has been really high the last couple of months. Does not want to go anywhere because she feels that this heightens her anxiety. Taking lexapro daily, seroquel 2-3x a week. Questioning if her meds needs adjusted. The patient presents to the office with increased anxiety over the last several months. Currently taking Lexapro 20 mg daily and Seroquel 25 mg 2-3 times a week. Having anxiety and wants to stay homeand eventually out less. Also is having increasing lower back pain for the last several months. He has been using lidocaine patches, which helps somewhat. Noticing more pain down into her legs. Numbness in the left foot intermittently. She does have a history of spinal fusion back in 2012. Also complaining of fullness of both ears, which he took some Celebrex which seemed to help. Patient does have a history of rheumatoid arthritis. SUBJECTIVE: Current Medications: Allergies/Social History: Depression Screen/Family History: Current Outpatient Medications on File Prior to Visit Medication Sig Dispense Refill albuterol HFA 90 mcg/act inhaler Atogepant 60 MG tablet Take 60 mg by mouth in the morning. calcium carbonate (Os-Alfonzo) 1250 (500 Ca) MG tablet Daily. cholecalciferol (Vitamin D-3) 50 MCG (2000 UT) capsule 1 capsule 1 (one) time each day at the same time. docusate sodium (Colace) 100 MG tablet Take 100 mg by mouth 2 (two) times a day as needed escitalopram (Lexapro) 20 MG tablet TAKE 1 TABLET BY MOUTH DAILY 90 tablet 2 estradiol (Estrace) 0.1 MG/GM vaginal cream Insert 1 g into the vagina 2 (two) times a week 42.5 g 1 fluticasone (Flonase) 50 MCG/ACT nasal spray 1 (one) time each day at the same time. hydroxychloroquine (Plaquenil) 200 MG tablet Take 200 mg by mouth Daily ibuprofen (Motrin IB) 200 MG tablet Take by mouth leflunomide (Arava) 10 MG tablet Take 1tab daily by mouth with food. No alcohol. Hold if on antibiotics or ill. meloxicam (Mobic) 15 MG tablet metoprolol succinate XL (Toprol-XL) 25 MG 24 hr tablet Take 25 mg by mouth Daily Multiple Vitamin (Multi Vitamin) tablet 1 (one) time each day at the same time. ondansetron ODT (Zofran-ODT) 4 MG disintegrating tablet oxybutynin XL (Ditropan-XL) 10 MG 24 hr tablet Take 1 tablet (10 mg) by mouth Daily Do not crush, chew, or split. 90 tablet 3 pantoprazole (ProtoNix) 40 MG EC tablet 2 (two) times a day predniSONE (Deltasone) 5 MG tablet Daily as needed QUEtiapine (SEROquel) 25 MG tablet TAKE 1 TABLET BY MOUTH DAILY 30 tablet 3 upadacitinib ER (Rinvoq) 15 MG tablet sustained-release 24 hour Take 15 mg by mouth in the morning. valACYclovir (Valtrex) 1 g tablet valsartan (Diovan) 160 MG tablet TAKE 1/2 TABLET BY MOUTH DAILY 45 tablet 3 No current facility-administered medications on file prior to visit. Allergies Allergen Reactions Tofacitinib Diarrhea Social History Tobacco Use Smoking status: Former Current packs/day: 0.00 Types: Cigarettes Quit date: 04/04/2001 Years since quittin.0 Smokeless tobacco: Never Tobacco comments: Last smoked : > 10 years Vaping Use Vaping status: Never Used Substance Use Topics Alcohol use: Never Comment: caffeine intake : 1 cup per day ; coffee Drug use: Never Depression: Not at risk (04/17/2024) PHQ-2 PHQ-2 Score: 0 Family History Problem Relation Name Age of Onset Thyroid cancer Mother Diabetes Mother Heart disease Mother No Known Problems Sister No Known Problems Brother Breast cancer Paternal Grandmother No Known Problems Son Past Medical History: Surgical History: ROS Past Medical History: Diagnosis Date Abnormal Pap smear of cervix 1994 Arthritis Bilateral carpal tunnel syndrome Bronchitis Chronic maxillary sinusitis 05/28/2019 Fatty liver Headache Heart palpitations 11/15/2022 Hematuria Hemorrhoids 2013 History of lumbar fusion L5-S1 History of lumbar spinal fusion Hx of scarlet fever Hypertension (CMS/HCC) IBS (irritable bowel syndrome) 2013 Inflammatory bowel disease Kidney stone 2015 Migraine headache (CMS/HCC) PAT (paroxysmal atrial tachycardia) (CMS/HCC) 02/17/2023 Rheumatoid arthritis (CMS/HCC) rheum treating Stress incontinence in female 04/27/2017 Ureteral stricture right Vasculitis (CMS/HCC) 02/25/2018 Past Surgical History: Procedure Laterality Date BACK SURGERY 2022 lumbar CARPAL TUNNEL RELEASE Bilateral CERVICAL CONIZATION W/ LASER 1994 CHOLECYSTECTOMY COLONOSCOPY 2012 hemorrhoids and IBS EGD 2012 with biopsy - Esophageal polyp HAND TENDON SURGERY Right LAPAROSCOPY ABDOMEN DIAGNOSTIC x 2 LYMPHADENECTOMY [address] neck [address]GICAL HISTORY [address] abd, / pelvis - fatty liver OTHER SURGICAL HISTORY Nephrolithiaiss - Dr. Moreira PA LAP,CHOLECYSTECTOMY 03/30/2017 Dr. Younger PA SALPINGECTOMY COMPLETE/PARTIAL UNI/BI SPX 2005 operative scope - BSO / lysis of adhesions /fulguration of pelvic lesions SPINAL FUSION 2013 screws TENDON REPAIR Left 2022 Hamstring TOTAL KNEE ARTHROPLASTY 03/2018 meniscus tear TOTAL KNEE ARTHROPLASTY Right 2021 TOTAL VAGINAL HYSTERECTOMY 1998 URETERAL STENT PLACEMENT Right 2015 Review of Systems OBJECTIVE: 04/17/2024 10:59 AM 03/09/2024 2:04 PM 03/07/2024 10:06 AM 02/01/2024 10:51 AM 01/04/2024 12:48 PM 10/03/2023 1:57 PM 08/12/2023 9:24 AM Vitals BMI 35.24 kg/m2 34.93 kg/m2 35.71 kg/m2 34.77 kg/m2 34.46 kg/m2 35.08 kg/m2 36.02 kg/m2 BSA (m2) 2.2 m2 2.19 m2 2.21 m2 2.19 m2 2.17 m2 2.2 m2 2.22 m2 Systolic 124 143 136 116 120 124 Diastolic 82 88 82 74 70 76 Heart Rate 72 65 68 60 62 SpO2 97 % 98 % 97 % 98 % 97 % Temp 98.1 F 98 F 98 F 98.2 F 98.3 F Height (in) 5' 7 5' 7 5' 7 5' 7 5' 7 5' 7 5' 7 Weight (lb) 225 223 228 222 220 224 230 Visit Report Report Report Report Report Report Report Report GENERAL EXAM: Physical Exam Vitals and nursing note reviewed. Constitutional: General: She is not in acute distress. Appearance: Normal appearance. She is obese. She is not ill-appearing. HENT: Head: Normocephalic and atraumatic. Nose: Nose normal. Eyes: General: No scleral icterus. Right eye: No discharge. Left eye: No discharge. Extraocular Movements: Extraocular movements intact. Musculoskeletal: Cervical back: Neck supple. Skin: General: Skin is warm and dry. Neurological: General: No focal deficit present. Mental Status: She is alert and oriented to person, place, and time. Mental status is at baseline. Psychiatric: Mood and Affect: Mood normal. Behavior: Behavior normal. Thought Content: Thought content normal. Judgment: Judgment normal. documented in this encounterEllett Memorial [id number] Telephone encounter Note* Telephone Encounter - Marianela Mobley LPN - 04/10/2024 2:35 PM EST Images from the original note were not included. Most recent Rheumatology visit: 03/08/2024 (with Chris No) Last Bone Density on file: 11/26/2021 Rheumatology Care Team: None on file Recent Office Visits - This Specialty 03/08/2024 Rheumatoid arthritis involving multiple sites with positive rheumatoid factor (HCC) Rheumatology Chris No MD 12/26/2023 High risk medication use Rheumatology Chris No MD 10/24/2023 Rheumatoid arthritis involving multiple sites with positive rheumatoid factor (HCC) Rheumatology Chris No MD Upcoming Rheumatology Appointments - Next 365 Days Visit Type Date Time Department [facility] 06/07/2024 11:40 AM [facility] Last Ophthalmology Check for Plaquenil (Hydroxychloroquine) Last OCT Macula Exam No resulted procedures found. Last Visual Field Exam No resulted procedures found. CBC: Latest Ref Rng & Units 08/01/2023 03/08/2024 CBC WBC 3.70 - 11.00 k/uL 5.89 6.75 Hemoglobin 11.5 - 15.5 g/dL 12.7 13.8 Hematocrit 36.0 - 46.0 % 38.9 41.0 Platelet Count 150 - 400 k/uL 204 222 Abs Neut (ANC) 1.45 - 7.50 k/uL 2.89 5.36 Abs Lymph 1.00 - 4.00 k/uL 2.21 1.00 Vitamin D: None on file in the last 6 months LFT: Latest Ref Rng & Units 08/01/2023 03/08/2024 CMP Sodium 136 - 144 mmol/L 138 137 Potassium 3.7 - 5.1 mmol/L 4.4 4.7 Chloride 98 - 107 mmol/L 102 102 CO2 22 - 30 mmol/L 25 21 Glucose 74 - 99 mg/dL 91 93 BUN 7 - 21 mg/dL 21 19 Creatinine 0.58 - 0.96 mg/dL 0.75 0.80 Calcium 8.5 - 10.2 mg/dL 9.3 9.4 AST 13 - 35 U/L 18 23 ALT 7 - 38 U/L 15 17 Alkaline Phosphatase 34 - 123 U/L 73 63 Hepatic Function: Creatinine: Latest Ref Rng & Units 08/01/2023 03/08/2024 Creatinine Creatinine 0.58 - 0.96 mg/dL 0.75 0.80 ESR/CRP: None on file in the last 6 months Uric Acid: None on file in the last 6 months Open Standing (Multiple Instance) Lab Orders None Open Future (Single Instance) Lab Orders None [facility]01-07-2025 Miscellaneous Notes* Telephone Encounter - Marianela Mobley LPN - 04/10/2024 2:35 PM EST Images from the original note were not included. Most recent Rheumatology visit: 03/08/2024 (with Chris No) Last Bone Density on file: 11/26/2021 Rheumatology Care Team: None on file Recent Office Visits - This Specialty 03/08/2024 Rheumatoid arthritis involving multiple sites with positive rheumatoid factor (HCC) Rheumatology Chris No MD 12/26/2023 High risk medication use Rheumatology Chris No MD 10/24/2023 Rheumatoid arthritis involving multiple sites with positive rheumatoid factor (HCC) Rheumatology Chris No MD Upcoming Rheumatology Appointments - Next 365 Days Visit Type Date Time Department [facility] 06/07/2024 11:40 AM [facility] REJ Last Ophthalmology Check for Plaquenil (Hydroxychloroquine) Last OCT Macula Exam No resulted procedures found. Last Visual Field Exam No resulted procedures found. CBC: Latest Ref Rng & Units 08/01/2023 03/08/2024 CBC WBC 3.70 - 11.00 k/uL 5.89 6.75 Hemoglobin 11.5 - 15.5 g/dL 12.7 13.8 Hematocrit 36.0 - 46.0 % 38.9 41.0 Platelet Count 150 - 400 k/uL 204 222 Abs Neut (ANC) 1.45 - 7.50 k/uL 2.89 5.36 Abs Lymph 1.00 - 4.00 k/uL 2.21 1.00 Vitamin D: None on file in the last 6 months LFT: Latest Ref Rng & Units 08/01/2023 03/08/2024 CMP Sodium 136 - 144 mmol/L 138 137 Potassium 3.7 - 5.1 mmol/L 4.4 4.7 Chloride 98 - 107 mmol/L 102 102 CO2 22 - 30 mmol/L 25 21 Glucose 74 - 99 mg/dL 91 93 BUN 7 - 21 mg/dL 21 19 Creatinine 0.58 - 0.96 mg/dL 0.75 0.80 Calcium 8.5 - 10.2 mg/dL 9.3 9.4 AST 13 - 35 U/L 18 23 ALT 7 - 38 U/L 15 17 Alkaline Phosphatase 34 - 123 U/L 73 63 Hepatic Function: Creatinine: Latest Ref Rng & Units 08/01/2023 03/08/2024 Creatinine Creatinine 0.58 - 0.96 mg/dL 0.75 0.80 ESR/CRP: None on file in the last 6 months Uric Acid: None on file in the last 6 months Open Standing (Multiple Instance) Lab Orders None Open Future (Single Instance) Lab Orders None documented in [facility] encounterJoint [facility] Telephone encounter Note * Telephone Encounter - Alexandra Henderson LPN - 03/30/2024 10:58 AM EST Patient has been identified by name and date of : Yes, Provider Dr. No Date 03/30/24 Type of form: medication clarification for d/c Xeljanz and new Rinvoq order. Form received via: Fax Faxed Rx from 03/16/2024 to [facility] specialty at [phone] and [phone]. Alexandra Henderson LPN [facility]12-27-2024 Miscellaneous Notes* Telephone Encounter - Alexandra Henderson LPN - 03/30/2024 10:58 AM EST Patient has been identified by name and date of : Yes, Provider Dr. No Date 03/30/24 Type of form: medication clarification for d/c Xeljanz and new Rinvoq order. Form received via: Fax Faxed Rx from 03/16/2024 to [facility] specialty at [phone] and [phone]. Alexandra Henderson LPN documented in this encounterJoint [facility]12-[facility]-2024 Telephone encounter Note * Telephone Encounter - Shaan Tay RPh - 03/16/2024 2:00 PM EST Prior authorization for pended medication(s) has been approved; however, due to insurance restrictions Rx must be filled at [facility] . If refill request approved, eRx will be sent to above Specialty Pharmacy for processing. Thank you. NOTE: Initial prior auth was completed by [facility] and expires on 09/10/2024. Future PA renewals will be the responsibility of the provider's office. Pended Orders ID Status Description Pended By When Reason [id number] Pended upadacitinib tablet ER 24 hr 15 mg (RINVOQ)-DAILY Shaan Tay RPh 03/16/24 1402 Shaan Tay RPh Clinical Pharmacist - [employer]: Allergy, Immunology, and Inflammatory [facility] ; Pool: [id number] Pool #: [id number] [facility]12-13-2024 Miscellaneous Notes* Telephone Encounter - Shaan Tay RPh - 03/16/2024 2:00 PM EST Prior authorization for pended medication(s) has been approved; however, due to insurance restrictions Rx must be filled at [facility] . If refill request approved, eRx will be sent to above Specialty Pharmacy for processing. Thank you. NOTE: Initial prior auth was completed by [facility] and expires on 09/10/2024. Future PA renewals will be the responsibility of the provider's office. Pended Orders ID Status Description Pended By When Reason [id number] Pended upadacitinib tablet ER 24 hr 15 mg (RINVOQ)-DAILY Shaan Tay RPh 03/16/24 1402 Shaan Tay RPh Clinical Pharmacist - Biologics: Allergy, Immunology, and Inflammatory [facility] ; Pool: [id number] Pool #: [id number] [facility] History of Present illness Narrative* Roula Jameson - 03/09/2024 4:05 PM EST [facility] received prescription(s) for Rinvoq from Dr. Chris No's office. Benefits investigation was conducted, indicating that a prior authorization is required by patient's insurance plan with medimpact . Encounter will be updated once prior authorization has been submitted by [facility]. Roula Jameson [facility] P: [phone] F:[phone] documented in this encounterJoint [facility]12-[facility]-2024 NoteHNO ID: [id number] Author: TAY [facility] Service: ? Author Type: ? Type: Progress Notes Filed: 03/16/2024 14:08 Note Text: Attestation signed by Shaan Tay [facility] at 03/16/2024 2:08 PM Shaan Tay PharmD, [facility] Clinical Pharmacist - Biologics: Allergy, Immunology, and Inflammatory [facility] ; Pool: [facility] Pool #: [id number] Prior authorization was approved for Rinvoq. Plan Name: [employer] PA reference number: [id number] Approval Dates: 03/14/2024 - 09/10/2024 However, s/he is required to use [facility] to fill this medication. Will queue prescription(s) to go to designated specialty pharmacy. For reference, their pharmacy phone number is [phone]. No further action by [facility]. Roula Jameson [facility] P: [phone] F:[phone] NoteHNO ID: [id number] Author: ?, ?, ? Service: ? Author Type: ? Type: Progress Notes Filed: 03/09/2024 16:09 Note Text: [facility] received prescription(s) for Rinvoq from Dr. Chris No's office. Benefits investigation was conducted, indicating that a prior authorization is required by patient's insurance plan with [employer] . Encounter will be updated once prior authorization has been submitted by [facility]. Roula Jameson [facility] P: [phone] F:[phone] [place], [place] [address]12-06-2024 NoteHNO ID: [id number] Author: ?, ?, ? Service: ? Author Type: ? Type: Progress Notes Filed: 03/15/2024 15:24 Note Text: Rinvoq PA was approved with details listed below. Plan Name: [employer] Plan Agent/Clancy: [id number] PA reference number: [id number] Approval Dates: 03/13/2024 - 09/11/2024 Prescriptions will now be processed through [facility] for determination of next steps. Roula Jameson [facility] P: [phone] F:[phone] [place], [place] [address]12-06-2024 NoteHNO ID: [id number] Author: ?, ?, ? Service: ? Author Type: ? Type: Progress Notes Filed: 03/13/2024 18:51 Note Text: Rinvoq PA was initiated and pending review. Plan Name: [employer] Plan Agent/Clancy: [email or web address] Timeline: Standard Roula Jameson [facility] P: [phone] F:[phone] [place], [place] [address]-06-2024 NoteHNO ID: [id number] Author: ?, ?, ? Service: ? Author Type: ? Type: Progress Notes Filed: 03/15/2024 15:26 Note Text: Rinvoq PA was approved with details listed below. Plan Name: [employer] Plan Agent/Clancy: [id number] KAILYN reference number: [id number] Approval Dates: 03/14/2024 - 09/10/2024 Prescriptions will now be processed through [facility] for determination of next steps. Roual Jameson [facility] P: [phone] F:[phone]12-06-2024 History of Present illness Narrative* Jason Kimble MD - 03/09/2024 2:00 PM EST Subjective Patient ID: Caty Hills is a 63 y.o. female who presents for Ear Problem Pt reports at night she has been having pain in her ears that radiates down the neck. Also has discomfort when swimming and getting water in the ears. Also C/O HL. Pt has a long h/o bruxism. Review of Systems All other systems reviewed and are negative. Family History Problem Relation Name Age of Onset Thyroid cancer Mother Diabetes Mother Heart disease Mother No Known Problems Sister No Known Problems Brother Breast cancer Paternal Grandmother No Known Problems Son Active Ambulatory Problems Diagnosis Date Noted Anxiety 08/23/2022 Arthritis, lumbar spine 08/23/2022 Chronic fatigue syndrome 01/14/2020 Major depressive disorder, single episode, mild (HCC) (CMS/HCC) 02/07/2019 Immunocompromised (CMS/HCC) 08/23/2022 Irritable bowel syndrome 07/03/2020 Rheumatoid arthritis involving multiple sites with positive rheumatoid factor (CMS/HCC) 06/18/2019 Gastroesophageal reflux disease 11/09/2019 DDD (degenerative disc disease), lumbar 01/08/2013 Fibromyalgia 12/21/2002 Obesity (BMI 35.0-39.9 without comorbidity) 02/17/2023 Essential hypertension (CMS/HCC) 02/17/2023 Spondylolisthesis at L4-L5 level 10/03/2023 Closed displaced fracture of fifth metatarsal bone of left foot 06/18/2019 Depression (CMS/HCC) 11/09/2019 Encounter to discuss test results 02/17/2023 H/O iritis 04/06/2022 Hamstring injury 01/24/2023 Metatarsus adductus of both feet 06/18/2019 Os peroneum syndrome of left foot 01/30/2020 Knee osteoarthritis 12/01/2022 Palpitations 01/24/2023 PAT (paroxysmal atrial tachycardia) ([facility]) 02/17/2023 Peroneal tendinitis of left lower extremity 01/30/2020 Status post total knee replacement, right 12/24/2021 Syncope and collapse 01/24/2023 Degeneration of lumbar intervertebral disc 03/07/2024 Resolved Ambulatory Problems Diagnosis Date Noted Adjustment disorder with depressed mood (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) 08/23/2022 Depression ([facility]) 11/09/2019 Class 2 obesity 06/14/2017 Osteoarthritis of left knee 08/23/2022 Status post total knee replacement, right 12/24/2021 Stress incontinence in female 04/27/2017 Vitamin D deficiency 01/14/2020 Vasculitis ([facility]) 02/25/2018 Upper abdominal pain 02/08/2017 Tear of lateral meniscus of left knee 02/22/2018 Peroneal tendinitis of left lower extremity 01/30/2020 Os peroneum syndrome of left foot 01/30/2020 Morbid obesity ([facility]) 11/10/2017 Metatarsus adductus of both feet 06/18/2019 Immunodeficiency disorder (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) 11/15/2022 Encounter to discuss test results 02/17/2023 Hamstring injury 01/24/2023 PAT (paroxysmal atrial tachycardia) ([facility]) 02/17/2023 Shortness of breath 01/24/2023 Syncope and collapse 01/24/2023 Knee osteoarthritis 12/01/2022 Palpitations 01/24/2023 Rheumatoid arthritis ([facility]/HCC) 12/01/2022 USP current use of insulin ([facility]/HCC) 11/24/2022 Abdominal bloating 10/03/2023 Fall 10/03/2023 Fracture of radial head, left, closed 10/03/2023 Mucus in stool 10/03/2023 Pain of right hand 09/01/2023 Strain of lumbar region 10/03/2023 Abdominal pain 10/03/2023 Gastritis 10/03/2023 GERD (gastroesophageal reflux disease) 10/03/2023 Hypokalemia 10/14/2023 Obesity, unspecified 02/17/2023 Shortness of breath 01/24/2023 Tear of lateral meniscus of left knee 02/22/2018 Past Medical History: Diagnosis Date Abnormal Pap smear of cervix 1994 Arthritis Bilateral carpal tunnel syndrome Bronchitis Fatty liver Headache Hematuria Hemorrhoids 2013 History of lumbar fusion History of lumbar spinal fusion Hx of scarlet fever IBS (irritable bowel syndrome) 2012 Inflammatory bowel disease Kidney stone 2015 Migraine headache ([facility]) Ureteral stricture Past Surgical History: Procedure Laterality Date BACK SURGERY 2022 lumbar CARPAL TUNNEL RELEASE Bilateral CERVICAL CONIZATION W/ LASER 1994 CHOLECYSTECTOMY COLONOSCOPY 2012 hemorrhoids and IBS EGD 2012 with biopsy - Esophageal polyp HAND TENDON SURGERY Right LAPAROSCOPY ABDOMEN DIAGNOSTIC x 2 LYMPHADENECTOMY [address] HIST[address] abd, / pelvis - fatty liver OTHER SURGICAL HISTORY Nephrolithiaiss - Dr. Moreira PA LAP,CHOLECYSTECTOMY 03/30/2017 Dr. Younger PA SALPINGECTOMY COMPLETE/PARTIAL UNI/BI SPX 2005 operative scope - BSO / lysis of adhesions /fulguration of pelvic lesions SPINAL FUSION 2013 screws TENDON REPAIR Left 2022 Hamstring TOTAL KNEE ARTHROPLASTY 03/2018 meniscus tear TOTAL KNEE ARTHROPLASTY Right 2021 TOTAL VAGINAL HYSTERECTOMY 1998 URETERAL STENT PLACEMENT Right 2014 Allergies Allergen Reactions Tofacitinib Diarrhea Current Outpatient Medications on File Prior to Visit Medication Sig Dispense Refill albuterol HFA 90 mcg/act inhaler calcium carbonate (Os-Alfonzo) 1250 (500 Ca) MG tablet Daily. cholecalciferol (Vitamin D-3) 50 MCG (1999) capsule 1 capsule 1 (one) time each day at the same time. docusate sodium (Colace) 100 MG tablet Take 100 mg by mouth 2 (two) times a day as needed escitalopram (Lexapro) 20 MG tablet TAKE 1 TABLET BY MOUTH DAILY 90 tablet 2 estradiol (Estrace) 0.1 MG/GM vaginal cream Insert 1 g into the vagina 2 (two) times a week 42.5 g 1 fluticasone (Flonase) 50 MCG/ACT nasal spray 1 (one) time each day at the same time. hydroxychloroquine (Plaquenil) 200 MG tablet Take 200 mg by mouth Daily ibuprofen (Motrin IB) 200 MG tablet Take by mouth leflunomide (Arava) 10 MG tablet Take 1tab daily by mouth with food. No alcohol. Hold if on antibiotics or ill. meloxicam (Mobic) 15 MG tablet metoprolol succinate XL (Toprol-XL) 25 MG 24 hr tablet Take 25 mg by mouth Daily Multiple Vitamin (Multi Vitamin) tablet 1 (one) time each day at the same time. ondansetron ODT (Zofran-ODT) 4 MG disintegrating tablet oxybutynin XL (Ditropan-XL) 10 MG 24 hr tablet Take 1 tablet (10 mg) by mouth Daily Do not crush, chew, or split. 90 tablet 3 pantoprazole (ProtoNix) 40 MG EC tablet 2 (two) times a day predniSONE (Deltasone) 5 MG tablet Daily as needed QUEtiapine (SEROquel) 25 MG tablet TAKE 1 TABLET BY MOUTH DAILY 30 tablet 3 valACYclovir (Valtrex) 1 g tablet valsartan (Diovan) 160 MG tablet TAKE 1/2 TABLET BY MOUTH DAILY 45 tablet 3 [DISCONTINUED] valsartan (Diovan) 80 MG tablet [DISCONTINUED] Xeljanz XR 11 MG tablet sustained-release 24 hour Take 11 mg by mouth in the morning. No current facility-administered medications on file prior to visit. Objective Last Recorded Vitals Vitals: 03/09/24 1404 BP: 143/88 ENT Physical Exam Constitutional Appearance: patient appears well-developed, well-nourished and well-groomed, Head and Face Appearance: head appears normal and face appears atraumatic; Palpation: TMJ tender bilaterally; Ear Ear Canals: bilateral ear canals impacted cerumen observed; Tympanic Membranes: right tympanic membrane normal; left tympanic membrane normal; Nose External Nose: nares patent bilaterally; external nose normal; Internal Nose: septum normal; Oral Cavity/Oropharynx Tongue: normal; Oral mucosa: normal; Hard palate: normal; Soft palate: normal; Tonsils: normal; Neck Neck: neck normal; neck palpation normal; Thyroid: thyroid normal; Respiratory Inspection: breathing unlabored; normal breathing rate; Auscultation: breath sounds are clear; Cardiovascular Inspection: extremities are warm and well perfused; no peripheral edema present; Auscultation: regular rate and rhythm; Assessment/Plan Diagnoses and all orders for this visit: Bilateral impacted cerumen Referred otalgia, bilateral - Ambulatory referral to ENT Bilateral hearing loss, unspecified hearing loss type 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 Recommend oral appliance. Consider oral surgery eval if persists. Trouble swimming due to cerumen getting wet. Ears debrided Check audio documented in this encounterEllett Memorial [id number] NoteHNO ID: [id number] Author: CHRIS NO MD Service: ? Author Type: Physician Type: Progress Notes Filed: 03/08/2024 14:19 Note Text: Rheumatology Outpatient Clinic Date of Service: 03/08/2024 Patient: Caty Hills Medical Record: [id number] Primary Care Physician: Anibal Juan, DO, DO Last Rheumatology visit: 12/26/2023 (with Chris No) History of Present Illness Caty Hills is a 63 year old White female who presents on 03/08/2024 for an in-person visit for evaluation of Follow Up (2 month/Knees, feet and shoulders are hurting./Pt took 2 prednisone's this AM) and Rheumatoid Arthritis. Her most recent CHERIE was negative (07/11/2020). HISTORY OF PRESENT ILLNESS This patient is known to me from my previous practice with [facility] with diagnosis of rheumatoid arthritis. This patient has been on DMARD therapy in the past with methotrexate and has not tolerated it well. She had been on a sequence of Biologics and when last seen in May 2021 was on Rinvoq 15 mg daily and doing well. Then in June 2021 that she developed a bout of iritis. She was being seen by a different real estate specialist with [facility] and switch her off of Rinvoq and placed her on Humira for the iritis. The patient has tolerated the Humira and it is improved her iritis. She has not needed to be on topical steroid treatment for her eyes in several months now. She does get some breakthrough discomfort in her eyes but no full-blown iritis. Where is a bigger problem is off of the Rinvoq she is had escalation of rheumatoid arthritis activity in her hands, wrists, shoulders, right knee and toes despite being on the Humira. Her other real estate specialist is even attempted to place methotrexate in combination with the Humira and this did not improve her rheumatoid arthritis and she felt ill on the methotrexate and has discontinued it. She was inquiring as to whether or not she would be allowed to go back onto the Rinvoq. Aside from the iritis she has not experienced any other extra-articular manifestations of rheumatoid arthritis. She shares with me that she had her right knee replaced 3 months ago and it is not doing as well as the left knee did from 2-1/2 years ago. The right knee remains quite swollen and painful and she believes the rheumatoid arthritis may be contributing to the right knee pain. INTERVAL HISTORY Patient returns for reevaluation and management of her rheumatoid arthritis. Since last visit patient has maintained hydroxychloroquine 400 mg daily and Xeljanz XR 11 mg daily and meloxicam 15 mg daily. She states she had to stop the Xeljanz because GI side effects and has been off of it a couple of weeks and is starting to experience breakthrough swelling, stiffness and pain in the fingers, wrists, shoulders, knees, ankles and feet. Her right thumb doing better from surgery 3 month back. Her fatigue remains about the same and is a challenge for her. There are no new extra-articular manifestations of rheumatoid arthritis. Her general health has been unchanged from last visit. Rheum/Ortho Arthrocentesis Injections (last 5) 03/02/2023 12:44 Injection History Location thumb Thumb Site R thumb [facility] Patient-Entered Data PAIN EVALUATION No data found in the last 1 encounters. PROMIS Assessments 07/31/2023 PROMIS Assessments Physical Health Percentile 10 Mental Health Percentile 26 Pain Score 3 Pain Interference Percentile 4 Fatigue Percentile 10 Physical Function Percentile 7 RAPID 3 Clancy Activities of Daily Living 07/31/2023 3:09 PM Dress self? With SOME difficulty Get in and out of bed? With SOME difficulty Walk outdoors? With SOME difficulty Wash and dry body? Without ANY difficulty Get in and out of car? With SOME difficulty RAPID 3 Disease Activity Weighed Score Levels: 0 - 1: Near Remission 1.3 - 2.0: Low Severity 2.3 - 4.0: Moderate Severity 4.3 - 10.0: High Severity 07/31/2023 RAPID-3 Weighed Score RAPID 3 Weighed Score 4.83 (High severity ) Review of Systems Review of Systems CONSTITUTION: Negative for: Weight loss or gain, Fever. Chills, Night sweats HEENT: Negative for: Nosebleeds, Mouth sores, Trouble swallowing, Dry mouth RESPIRATORY: Negative for: Cough, Shortness of breath, Pain with breathing, Coughing up blood GASTROINTESTINAL: Positive for: Abdominal pain Negative for: Melena, Diarrhea and Heartburn MUSCULOSKELETAL: Positive for: Arthralgias and Morning Joint Stiffness Negative for: Myalgias, Muscle weakness and Joint swelling NEUROLOGICAL: Negative for: Headaches, Numbness, Memory loss, SKIN: Negative for: Rashes, Sun sensitive rashes, Skin color changes, Hair loss, Nail changes EYES: Negative for: Eye pain, Eye redness, Visual disturbance, Eye dryness CARDIOVASCULAR: Negative for: Chest pain, Leg swelling, Arrhythmia, Presyncope GENITOURINARY: Negative for: Dysuria, Hematuria, Ulceration HEMATOLOGIC (more content not included)...[facility]12-05-2024 History of Present illness Narrative* Chris No MD - 03/08/2024 1:51 PM EST Images from the original note were not included. Rheumatology Outpatient Clinic Date of Service: 03/08/2024 Patient: Caty Hills Medical Record: [id number] Primary Care Physician: Anibal Juan, DO, DO Last Rheumatology visit: 12/26/2023 (with Chris No) History of Present Illness Caty Hills is a 63 year old White female who presents on 03/08/2024 for an in-person visit for evaluation of Follow Up (2 month/Knees, feet and shoulders are hurting./Pt took 2 prednisone's this AM) and Rheumatoid Arthritis. Her most recent CHERIE was negative (07/11/2020). HISTORY OF PRESENT ILLNESS This patient is known to me from my previous practice with [facility] with diagnosis of rheumatoid arthritis. This patient has been on DMARD therapy in the past with methotrexate and has not tolerated it well. She had been on a sequence of Biologics and when last seen in May 2021 wason Rinvoq 15 mg daily and doing well. Then in June 2021 that she developed a bout of iritis. She was being seen by a different real estate specialist with [facility] and switch her off of Rinvoq and placed her on Humira for the iritis. The patient has tolerated the Humira and it is improved her iritis. She has not needed to be on topical steroid treatment for her eyes in several months now. She does get some breakthrough discomfort in her eyes but no full-blown iritis. Where is a bigger problem is off of the Rinvoq she is had escalation of rheumatoid arthritis activity in her hands, wrists, shoulders, right knee and toes despite being on the Humira. Her other real estate specialist is even attempted to place methotrexate in combination with the Humira and this did not improve her rheumatoid arthritis and she felt ill on the methotrexate and has discontinued it. She was inquiring as to whether or not she would be allowed to go back onto the Rinvoq. Aside from the iritis she has not experienced any other extra- articular manifestations of rheumatoid arthritis. She shares with me that she had her right knee replaced 3 months ago and it is not doing as well as the left knee did from 2-1/2 years ago. The right knee remains quite swollen and painful and she believes the rheumatoid arthritismay be contributing to the right knee pain. INTERVAL HISTORY Patient returns for reevaluation and management of her rheumatoid arthritis. Since last visit patient has maintained hydroxychloroquine 400 mg daily and Xeljanz XR 11 mg daily and meloxicam 15 mg daily. She states she had to stop the Xeljanz because GI side effects and has been off of it a couple of weeks and is starting to experience breakthrough swelling, stiffness and pain in the fingers, wrists, shoulders, knees, ankles and feet. Her right thumb doing better from surgery 3 month back. Her fatigue remains about the same and is a challenge for her. There are no new extra-articular manifestations of rheumatoid arthritis. Her general health has been unchanged from last visit. Rheum/Ortho Arthrocentesis Injections (last 5) 03/02/2023 12:44 Injection History Location thumb Thumb Site R thumb [facility] Patient-Entered Data PAIN EVALUATION No data found in the last 1 encounters. PROMIS Assessments 07/31/2023 PROMIS Assessments Physical Health Percentile 10 Mental Health Percentile 26 Pain Score 3 Pain Interference Percentile 4 Fatigue Percentile 10 Physical Function Percentile 7 RAPID 3 Clancy Activities of Daily Living 07/31/2023 3:09 PM Dress self? With SOME difficulty Get in and out of bed? With SOME difficulty Walk outdoors? With SOME difficulty Wash and dry body? Without ANY difficulty Get in and out of car? With SOME difficulty RAPID 3 Disease Activity Weighed Score Levels: 0 - 1: Near Remission 1.3 - 2.0: Low Severity 2.3 - 4.0: Moderate Severity 4.3 - 10.0: High Severity 07/31/2023 RAPID-3 Weighed Score RAPID 3 Weighed Score 4.83 (High severity ) Review of Systems Review of Systems CONSTITUTION: Negative for: Weight loss or gain, Fever. Chills, Night sweats HEENT: Negative for: Nosebleeds, Mouth sores, Trouble swallowing, Dry mouth RESPIRATORY: Negative for: Cough, Shortness of breath, Pain with breathing, Coughing up blood GASTROINTESTINAL: Positive for: Abdominal pain Negative for: Melena, Diarrhea and Heartburn MUSCULOSKELETAL: Positive for: Arthralgias and Morning Joint Stiffness Negative for: Myalgias, Muscle weakness and Joint swelling NEUROLOGICAL: Negative for: Headaches, Numbness, Memory loss, SKIN: Negative for: Rashes, Sun sensitive rashes, Skin color changes, Hair loss, Nail changes EYES: Negative for: Eye pain, Eye redness, Visual disturbance, Eye dryness CARDIOVASCULAR: Negative for: Chest pain, Leg swelling, Arrhythmia, Presyncope GENITOURINARY: Negative for: Dysuria, Hematuria, Ulceration HEMATOLOGIC/LYMPHATIC: Negative for: Swollen glands All other reviewed and negative other than HPI. Past Medical History PAST MEDICAL HISTORY Diagnosis Date Anxiety Class 2 obesity in adult Heart palpitations Hypertension Hypokalemia NONE Rheumatoid arthritis (HCC) Seizure-like activity (HCC) SVT (supraventricular tachycardia) (HCC) Traumatic brain injury (HCC) slipped on ice and hit head on concrete and passed out for 2 min in 2009 Past Surgical History PAST SURGICAL HISTORY Procedure Laterality Date ANESTHESIA VAGINAL HYSTERECTOMY INCL BIOPSY 1996 ENDOMETRIOSIS, PAIN , CYSTS BACK SURGERY HX 2014 spinal fusion with screws CARPAL TUNNEL RIGHT WRIST 1996 RIGHT AND LEFT WRIST CONIZATION CERVIX W/WO D&C RPR KNIFE/LASER 1994 DYSPLASIA DILATION & CURETTAGE DX&/THER NONOBSTETRIC Dilation & curettage DILATION & CURETTAGE DX&/THER NONOBSTETRIC Dilation & curettage KNEE SURGERY HX PAST SURGICAL HISTORY OF 1978 REMOVAL OF BENIGN CYST RIGHT NECK Family History FAMILY HISTORY Problem Relation Age of Onset Thyroid Mother Coronary Artery Disease Mother Arthritis Mother Asthma Mother Hypertension Mother Cancer Mother Arrythmias Mother Afib Heart Failure Mother CHF-cause of Stroke Mother Diabetes Mother Cancer Father testicular cancer Heart disease Half-sister Thyroid Brother Hypertension Brother Heart disease Maternal Grandmother Heart disease Maternal Grandfather Cancer Paternal Grandmother bone Breast Cancer Paternal Grandmother Heart disease Paternal Grandfather Mental illness Daughter Multiple Sclerosis Son Schizophrenia Paternal Aunt Social History Social History Tobacco Use Smoking status: Former Current packs/day: 0.00 Average packs/day: 0.5 packs/day for 20.0 years (10.0 ttl pk-yrs) Types: Cigarettes Start date: 09/19/1980 Quit date: 09/19/2000 Years since quittin.4 Smokeless tobacco: Never Vaping Use Vaping status: Never Used Substance Use Topics Alcohol use: Yes Comment: social Drug use: No Current Medications Current Outpatient Medications Medication Sig atogepant (QULIPTA) 60 mg tablet Take 60 mg by mouth once daily. hydrOXYchloroQUINE (PLAQUENIL) 200 mg tablet Take two tabs by mouth daily meloxicam (MOBIC) 15 mg tablet take 1 tablet by mouth daily predniSONE (DELTASONE) 5 mg tablet Take up 3 tabs daily as needed metoprolol tartrate, short acting, (LOPRESSOR) 50 mg tablet Take 25 mg by mouth twice daily. Valsartan-hydroCHLOROthiazide 160-25 mg per tablet Take 1 tablet by mouth once daily. escitalopram oxalate (LEXAPRO) 20 mg tablet Take 20 mg by mouth daily at bedtime. QUEtiapine (SEROQUEL) 25 mg tablet Take 25 mg by mouth at bedtime as needed. Take 1-2 tabs as needed for sleep Kwezicjgtctup-Rcpgmfgu-Esxwam (MULTIVITAMIN 50 PLUS) tab Take 1 tablet by mouth once daily. pantoprazole DR (PROTONIX) 40 mg tablet Take 40 mg by mouth once daily. upadacitinib tablet ER 24 hr 15 mg (RINVOQ) Take 1 tablet (15 mg) by mouth once daily. multivitamin tablet Take 1 tablet by mouth once daily. ascorbic acid, vitamin C, (VITAMIN C) 500 mg tablet Take 1 tablet by mouth two times a day with meals. No current facility-administered medications for this visit. Last Ophthalmology Check for Plaquenil (Hydroxychloroquine) Last OCT Macula Exam No resulted procedures found. Last Visual Field Exam No resulted procedures found. Labs Latest Ref Rng & Units 08/01/2023 05/26/2023 02/03/2023 11/08/2022 CBC WBC 3.70 - 11.00 k/uL 5.89 5.84 6.03 4.84 Hemoglobin 11.5 - 15.5 g/dL 12.7 12.2 11.9 11.8 Hematocrit 36.0 - 46.0 % 38.9 36.3 35.7 34.8 Platelet Count 150 - 400 k/uL 204 222 235 204 Abs Neut (ANC) 1.45 - 7.50 k/uL 2.89 3.06 1.93 2.23 Abs Lymph 1.00 - 4.00 k/uL 2.21 1.87 3.45 1.73 Latest Ref Rng & Units 08/01/2023 05/26/2023 02/03/2023 11/08/2022 CMP Sodium 136 - 144 mmol/L 138 140 140 Potassium 3.7 - 5.1 mmol/L 4.4 3.8 4.0 Chloride 97 - 105 mmol/L 102 103 103 CO2 22 - 30 mmol/L 25 25 26 Glucose 74 - 99 mg/dL 91 105 99 BUN 7 - 21 mg/dL 21 17 21 Creatinine 0.58 - 0.96 mg/dL 0.75 0.90 0.73 1.15 Calcium 8.5 - 10.2 mg/dL 9.3 9.0 9.2 AST 13 - 35 U/L 18 24 21 22 ALT 7 - 38 U/L 15 21 14 20 Alkaline Phosphatase 34 - 123 U/L 73 61 58 Latest Ref Rng & Units 08/01/2023 05/26/2023 02/03/2023 04/06/2022 ESR, WSR WSR 0 - 20 mm/hr 8 9 5 15 Latest Ref Rng & Units 05/26/2023 07/11/2020 12/21/2002 CRP CRP <0.9 mg/dL 0.7 <0.3 0.9 Latest Ref Rng & Units 12/21/2002 CK CK 30 - 220 U/L 76 Latest Ref Rng & Units 05/26/2023 04/06/2022 Hepatitis Screen Hep B Surface Ag Negative Negative Negative 05/26/2023 04/06/2022 TB Screen TB Interpretation Infection with M. tuberculosis complex is unlikely. If latent tuberculosis infection is highly suspected, a negative result does not rule out the infection. Specimens from immunocompromised patients and those <5 years of age may show false negative results. In case of a contactinvestigation, please repeat 8-12 weeks after a known exposure. Infection with M. tuberculosis complex is unlikely. If latent tuberculosis infection is highly suspected, a negative result does not rule out the infection. Specimens from immunocompromised patients and those <5 years of age may show false negative results. In case of a contact investigation, please repeat 8-12 weeks after a knownexposure. TB Result Negative Negative Latest Ref Rng & Units 01/18/2021 07/11/2020 01/30/2003 Antibodies CHERIE by EIA OD Ratio 0.4 0.6 CHERIE by EIA, Qual Negative Negative Sm Antibody <1.0 AI <0.2 Ribosomal [employer] <1.0 AI <0.2 Chromatin Antibody <1.0 AI 0.2 SSA Antibody <1.0 AI <0.2 SSB Antibody <1.0 AI <0.2 MINE [employer]ATOR Antibody <1.0 AI <0.2 Scleroderma Ab, IgG <1.0 AI <0.2 Centromere Ab <1.0 AI <0.2 SOHA-1 ANTIBODY, IGG <1.0 AI <0.2 PT Sec 9.7 - 13.0 sec 10.3 PT INR 0.9 - 1.3 1.0 APTT 23.0 - 32.4 sec 24.2 Imaging Last XR Hand/Finger - Impression Only XR HAND GENERAL 3V PA/LAT/OBL RIGHT Exam End: 09/01/2023 10:30 AM (Final result) Impression: *No fracture. Remote deformity consistent with prior trauma in the the ulnar styloid. Scattered distal degenerative changes. No erosions. First carpometacarpal, radiocarpal, and distal radial ulnar joint degenerative changes are present. No malalignment. Electronically signed: Anibal Larsen MD. Last MRI Hand - Impression Only No resulted procedures found. Last XR Chest - Impression Only XR CHEST 1V FRONTAL PORT Exam End: 12/30/2018 12:50 PM (Final result) Impression: IMPRESSION: No infiltrate. ... Last XR Cervical Spine - Impression Only No resulted procedures found. Health Maintenance Current Immunizations Reviewed on 04/06/2022 Name Date COVID-19 vaccine, monovalent (MODERNA) 08/22/2020, 07/23/2020 pneumococcal (PCV20) vaccine 08/20/2021 Physical Exam GENERAL APPEARANCE: Well groomed. Alert and oriented x 3. In no distress. VITAL SIGNS: BP 151/74 Pulse 66 Resp 16 Wt 226 lb 10.1 oz (102.8kg) SKIN: No rash, thickening, nodules, discoloration. EYES: PERRL, EOMI. No inflammation seen. HENT: External examination and palpation of the ears and nose normal. Lips, teeth, and gums normal.Oropharynx and tongue normal. No lesions or exudate. NECK: No mass or asymmetry. RESPIRATORY: Normal respiratory effort. Clear to auscultation and percussion. CARDIOVASCULAR: Heart RRR without gallop, murmur, or rub. No bruits across chest or neck. EXTREMITIES: Normal and equal pulses in all 4 extremities. No edema. ABDOMEN: BS normal. No bruits, No tenderness, mass, or hepatosplenomegaly. NEUROLOGIC: Sensory exam normal. MUSCULOSKELETAL EXAMINATION: Soft tissue tender points: None Motor exam: Normal 5+/5+ muscle strength. Normal bulk and tone. Cervical spine: No visible abnormalities. Full ROM. No tenderness to palpation. Thoracic spine: No visible abnormalities. No tenderness to palpation. Lumbar spine: No visible abnormalities. Full ROM. No tenderness to palpation. Joint Exam 03/08/2024 Right Left Glenohumeral Tender Wrist Tender MCP 1 Tender MCP 2 Tender Tender MCP 3 Tender Tender MCP 4 Tender Tender PIP 2 (finger) Tender Tender PIP 3 (finger) Tender Tender Knee Tender Tender The following joints were examined and normal: Left Sternoclavicular, Right Sternoclavicular, Left Acromioclavicular, Right Acromioclavicular, Right Glenohumeral, Left Elbow, Right Elbow, Right Wrist, Right MCP 1, Left MCP 5, Right MCP 5, Left IP(thumb), Right IP (thumb), Left PIP 4 (finger), Right PIP 4 (finger), Left PIP 5 (finger), Right PIP 5 (finger), Left Ankle, Right Ankle, Left MTP 1, Right MTP 1, Left MTP 2, Right MTP 2, Left MTP 3,Right MTP 3, Left MTP 4, Right MTP 4, Left MTP 5, Right MTP 5 Joint Exam Data (across time) 03/08/2024 12/26/2023 10/24/2023 08/01/2023 05/26/2023 Joint Exam Total Tender 15 15 17 17 14 Total Swollen 0 0 5 5 3 Impression Diagnoses: (M05.79) Rheumatoid arthritis involving multiple sites with positive rheumatoid factor (HCC) (primary encounter diagnosis) (Z79.899) High risk medication use (Z86.69) H/O iritis Plan Orders this visit: Office Visit on 03/08/24 COMPLETE BLOOD COUNT AND DIFFERENTIAL COMPREHENSIVE METABOLIC PANEL BLOOD TB SCREEN HEPATITIS B SURFACE ANTIGEN atogepant (QULIPTA) 60 mg tablet upadacitinib tablet ER 24 hr 15 mg (RINVOQ) Discussed current status of rheumatoid arthritis as active on current treatment with hydroxychloroquine 400 mg daily and off of Xeljanz. She is experiencing escalating symptoms and is now using some prednisone to cover for the increasing swelling stiffness and pain of the joints. She inquired aboutgoing back to Rinvoq 15 mg daily. I ordered Rinvoq for a 30-day supply and 5 additional refills. Wewill reassess TB and hep B as it has been more than 6 months and not knowing the insurance is policy for reauthorization of Douglas inhibitor. We will assess CBC and CMP for safety monitoring on the switch from Xeljanz to Rinvoq. She will maintain the hydroxychloroquine and her supply is stable. Return in about 3 months (around 06/06/2024). I spent a total of 30 minutes on the date of the service which included preparing to see the patient, [id number] patient care, completing clinical documentation, obtaining and/or reviewing separately obtained history, performing a medically appropriate examination, counseling and educating the pat ient/family/caregiver, and ordering medications, tests, or procedures. Medical Decision Making: Problems: Moderate: 1+ chronic illnesses with change Data: Unique test(s) ordered: 3+ Risk: High: High risk from testing/treatment Medical Decision Making Level: 4 - Moderate Chris No MD Rheumatology Date: March 08, 2024 Time: 1:51 PM documented [facility] History of Present illness Narrative* Anibal Juan, DO - 03/07/2024 10:00 AM EST Images from the original note were not included. Caty Hills is a 63 y.o. female presents with chief complaint of Chief Complaint Patient presents with Earache Caty was seen today for earache. Diagnoses and all orders for this visit: Sinusitis, unspecified chronicity, unspecified location Immunocompromised (CMS/HCC) Other migraine without status migrainosus, not intractable (CMS/HCC) Severe obesity (BMI 35.0-39.9) with comorbidity (CMS/HCC) Assessment & Plan 1. Headaches. A comprehensive discussion was held regarding various treatment options. Other potential causes of her symptoms, such as sinus issues and eustachian tube dysfunction, were also considered. A trial ofQ-tip 60 mg once daily for the next 4 to 8 days was recommended. She is scheduled to follow up withthe ears, nose, and throat specialist on Tuesday. It is hoped that significant improvement will be observed with the Q-tip sample prior to this appointment, which would suggest that her symptoms are primarily due to headache/migraine. All her queries were addressed by the end of the visit. ANIBAL JUAN D.O. This note was entered using Blinkit copilot. Grammatical and dictation errors maybe present in translation *I have reviewed and reconciled the history and medication list with the patient today* History of Present Illness Has had persistent pressure in ears since last ov. 2 weeks ago started with more pressure throughout head and sinuses and over eyes. If she takes prednisone she has at home this seems to help temporarily. Not able to blow mucous out. Ears feels pressure filled and plugged. Seeing ENT on 03.09.24 The patient is here for a follow-up regarding sinus pressure and related symptoms. She has been experiencing sinus pressure for the past 2 weeks, which has been progressively worsening. She reports difficulty in expelling mucus when blowing her nose and a sensation of plugged ears,nose, and throat. She completed a 10- day course of antibiotics at the end of 01/2024. She also reports persistent pain in her neck and sides, accompanied by daily headaches that intensify at night. The headaches are described as pounding and throbbing. Steroids have provided some relief from these headaches. Additionally, she experiences a constant sensation of something being present in her ears, more pronounced in the left ear than the right, although her hearing remains unaffected. She has an upcoming appointment with a specialist on Tuesday. SUBJECTIVE: Current Medications: Allergies/Social History: Depression Screen/Family History: Current Outpatient Medications on File Prior to Visit Medication Sig Dispense Refill albuterol HFA 90 mcg/act inhaler calcium carbonate (Os-Alfonzo) 1250 (500 Ca) MG tablet Daily. cholecalciferol (Vitamin D-3) 50 MCG (2000 UT) capsule 1 capsule 1 (one) time each day at the same time. docusate sodium (Colace) 100 MG tablet Take 100 mg by mouth 2 (two) times a day as needed escitalopram (Lexapro) 20 MG tablet TAKE 1 TABLET BY MOUTH DAILY 90 tablet 2 estradiol (Estrace) 0.1 MG/GM vaginal cream Insert 1 g into the vagina 2 (two) times a week 42.5 g 1 fluticasone (Flonase) 50 MCG/ACT nasal spray 1 (one) time each day at the same time. hydroxychloroquine (Plaquenil) 200 MG tablet Take 200 mg by mouth Daily ibuprofen (Motrin IB) 200 MG tablet Take by mouth leflunomide (Arava) 10 MG tablet Take 1tab daily by mouth with food. No alcohol. Hold if on antibiotics or ill. meloxicam (Mobic) 15 MG tablet metoprolol succinate XL (Toprol-XL) 25 MG 24 hr tablet Take 25 mg by mouth Daily Multiple Vitamin (Multi Vitamin) tablet 1 (one) time each day at the same time. ondansetron ODT (Zofran-ODT) 4 MG disintegrating tablet oxybutynin XL (Ditropan-XL) 10 MG 24 hr tablet Take 1 tablet (10 mg) by mouth Daily Do not crush, chew, or split. 90 tablet 3 pantoprazole (ProtoNix) 40 MG EC tablet 2 (two) times a day predniSONE (Deltasone) 5 MG tablet Daily as needed QUEtiapine (SEROquel) 25 MG tablet TAKE 1 TABLET BY MOUTH DAILY 30 tablet 3 valACYclovir (Valtrex) 1 g tablet valsartan (Diovan) 160 MG tablet TAKE 1/2 TABLET BY MOUTH DAILY 45 tablet 3 [DISCONTINUED] valsartan (Diovan) 80 MG tablet [DISCONTINUED] Xeljanz XR 11 MG tablet sustained-release 24 hour Take 11 mg by mouth in the morning. No current facility-administered medications on file prior to visit. No Known Allergies Social History Tobacco Use Smoking status: Former Current packs/day: 0.00 Types: Cigarettes Quit date: 04/04/2001 Years since quittin.9 Smokeless tobacco: Never Tobacco comments: Last smoked : > 10 years Vaping Use Vaping status: Never Used Substance Use Topics Alcohol use: Never Comment: caffeine intake : 1 cup per day ; coffee Drug use: Never Depression: Not at risk (03/07/2024) PHQ-2 PHQ-2 Score: 0 Family History Problem Relation Name Age of Onset Thyroid cancer Mother Diabetes Mother Heart disease Mother No Known Problems Sister No Known Problems Brother Breast cancer Paternal Grandmother No Known Problems Son Past Medical History: Surgical History: Past Medical History: Diagnosis Date Abnormal Pap smear of cervix 1994 Arthritis Bilateral carpal tunnel syndrome Bronchitis Chronic maxillary sinusitis 05/28/2019 Fatty liver Headache Heart palpitations 11/15/2022 Hematuria Hemorrhoids 2012 History of lumbar fusion L5-S1 History of lumbar spinal fusion Hx of scarlet fever Hypertension (CMS/HCC) IBS (irritable bowel syndrome) 2013 Inflammatory bowel disease Kidney stone 2015 Migraine headache (CMS/HCC) PAT (paroxysmal atrial tachycardia) (CMS/HCC) 02/17/2023 Rheumatoid arthritis (CMS/HCC) rheum treating Stress incontinence in female 04/27/2017 Ureteral stricture right Vasculitis (CMS/HCC) 02/25/2018 Past Surgical History: Procedure Laterality Date BACK SURGERY 2022 lumbar CARPAL TUNNEL RELEASE Bilateral CERVICAL CONIZATION W/ LASER 1994 CHOLECYSTECTOMY COLONOSCOPY 2013 hemorrhoids and IBS EGD 2012 with biopsy - Esophageal polyp HAND TENDON SURGERY Right LAPAROSCOPY ABDOMEN DIAGNOSTIC x 2 LYMPHADENECTOMY [address] HISTORY [address] abd, / pelvis - fatty liver OTHER SURGICAL HISTORY Nephrolithiaiss - Dr. Moreira PA LAP,CHOLECYSTECTOMY 03/30/2017 Dr. Younger PA SALPINGECTOMY COMPLETE/PARTIAL UNI/BI SPX 2005 operative scope - BSO / lysis of adhesions /fulguration of pelvic lesions SPINAL FUSION 2013 screws TENDON REPAIR Left 2022 Hamstring TOTAL KNEE ARTHROPLASTY 03/2018 meniscus tear TOTAL KNEE ARTHROPLASTY Right 2021 TOTAL VAGINAL HYSTERECTOMY 1998 URETERAL STENT PLACEMENT Right 2014 REVIEW OF SYMPTOMS: Review of Systems Constitutional: Negative for fatigue. HENT: Negative for rhinorrhea. Respiratory: Negative for cough and shortness of breath. Cardiovascular: Negative for chest pain. Gastrointestinal: Negative for abdominal distention. Skin: Negative for rash. Neurological: Negative for dizziness. All other systems reviewed and are negative. OBJECTIVE: 03/07/2024 10:06 AM 02/01/2024 10:51 AM 01/04/2024 12:48 PM 10/03/2023 1:57 PM 08/12/2023 9:24 AM 06/06/2023 11:10 AM 06/03/2023 1:51 PM Vitals BMI 35.71 kg/m2 34.77 kg/m2 34.46 kg/m2 35.08 kg/m2 36.02 kg/m2 34.97 kg/m2 35.78 kg/m2 BSA (m2) 2.21 m2 2.19 m2 2.17 m2 2.2 m2 2.22 m2 2.23 m2 2.27 m2 Systolic 136 116 120 124 120 122 Diastolic 82 74 70 76 80 78 Heart Rate 65 68 60 62 88 SpO2 98 % 97 % 98 % 97 % 98 % Temp 98 F 98 F 98.2 F 98.3 F 98.7 F Height (in) 5' 7 5' 7 5' 7 5' 7 5' 7 5' 8 Weight (lb) 228 222 220 224 230 230 235.3 Visit Report Report Report Report Report Report Report Report GENERAL EXAM: Physical Exam ADDITIONAL EXAM: Physical Exam documented in this encounterEllett Memorial [id number] NoteOrthopedic Surgery Subjective Pain of the Right Wrist and Pain of the Right Hand Caty Hills is a 63 y.o. year old [id number] female presenting 2 and half month status post right Mendez's arthroplasty reporting that she is doing very well. She notes still some decree sensation to the dorsal aspect of her thumb but it has been improving. On further review she has noted a 2-week history of some numbness to the ulnar digits with no known change of activities. History Past Surgical History: Procedure Laterality Date BACK SURGERY CARPAL TUNNEL RELEASE HYSTERECTOMY JOINT REPLACEMENT Right 11/28/2023 [facility] ARTHROP[LASTY WITH TENDON TRANSFER WITH CARPECTOMY OF TRAPEZOID REPLACEMENT TOTAL KNEE ONCOLOGIC Bilateral Past Medical History: Diagnosis Date Anxiety Chronic fatigue syndrome DDD (degenerative disc disease), lumbar Depression Fibromyalgia GERD (gastroesophageal reflux disease) Hypertension Hypokalemia Immunocompromised (CMS/HCC) Irritable bowel syndrome Knee osteoarthritis Obesity, unspecified PONV (postoperative nausea and vomiting) RA (rheumatoid arthritis) (CMS/HCC) Rheumatoid arthritis involving multiple sites with positive rheumatoid factor (CMS/HCC) SVT (supraventricular tachycardia) ([facility]) Syncope Objective General: Body mass index is 34.46 kg/m???. No acute distress, comfortable Respiratory: Unlabored breathing with normal rate, no cough Cardiovascular: Warm well perfused extremities Psych: Appropriate mood behavior MSK: Examination of the right wrist revealed incision had healed well. There was no significant swelling. She had slightly decreased sensation to the dorsal aspect of the thumb. Full range of motion of the digits. Regards to the contralateral left hand positive elbow flexion test was demonstrated. She was assessed to be neurovascular tact. Assessment/Plan Caty Hills is a 63 y.o. year old female with status post right Mendez's arthroplasty doing very well with slight neuropraxia of the superficial nerve in resolution. She also presents with some signs suggestive of left cubital tunnel syndrome. Patient was instructed in ongoing self therapeutic exercises as well as self bracing for her left arm. She will follow-up in as-needed basis. [facility]11-11-2024 Telephone encounter Note* Telephone Encounter - [place] - 02/13/2024 10:21 AM EST . [facility] [id number] Miscellaneous Notes* Telephone Encounter - [place] - 02/13/2024 10:21 AM EST . documented in this encounterEllett Memorial [id number] History of Present illness Narrative* Anibal Juan, DO - 02/01/2024 10:45 AM EDT Caty Hills is a 63 y.o. female presents with chief complaint of Chief Complaint Patient presents with URI ASSESSMENT AND PLAN: Caty was seen today for uri. Diagnoses and all orders for this visit: Non-recurrent acute suppurative otitis media of both ears without spontaneous rupture of tympanic membranes The patient presents with symptoms of an upper respiratory infection, including ear discomfort, fluid behind the eardrums, and swollen lymph nodes. Examination revealed cloudy fluid behind the left eardrum, suggesting a low-grade ear infection. She reports using Flonase in the morning, which provides some relief. An antibiotic prescription will be sent to [facility] pharmacy. If symptoms do not improve by mid-weekend, a low-dose oral steroid may be considered to reduce swelling and aid in recovery. - cefdinir (Omnicef) 300 MG capsule; Take 1 capsule (300 mg) by mouth in the morning and 1 capsule (300 mg) before bedtime. Do all this for 10 days. Obesity (BMI 30-39.9) Immunocompromised ([facility]) Rheumatoid arthritis involving multiple sites with positive rheumatoid factor ([facility]) ANIBAL JUAN D.O. This note was entered using Blinkit copilot. Grammatical and dictation errors maybe present in translation *I have reviewed and reconciled the history and medication list with the patient today* History of Present Illness For past 2 weeks ears feel plugged and painful. Denies cough or shortness of breath but admits to nasal congestion. Has taken xyzal which has helped somewhat. The patient is here for a 2-week history of upper respiratory infection symptoms. She reports a sensation of blockage in her ears, which she first noticed during the summer. The sensation varies, sometimes feeling like a crawling sensation, other times as if there is nothing there, and occasionally as a throbbing pain. This affects both ears and is more noticeable at night when she is in bed. She experiences sudden ear pain and severe headaches when lying in bed. She also reports a sensation of pressure in her ears, which intensifies at night when she relaxes, often leading to severe headaches. She has been taking Xyzal, which provides some relief. She uses Flonase in the morning, which seemsto help. She denies any ear drainage. She has been engaging in water exercises at the [facility] in [place], which have been beneficial. However, she notes that her ears feel full if water enters them, a new symptom for her. A week ago, she noticed swelling in her lymph nodes, particularly on the left side, which has sinceimproved. SUBJECTIVE: Current Medications: Allergies/DC Medication Depression Screen/Social History Current Outpatient Medications: albuterol HFA 90 mcg/act inhaler, , Disp: , Rfl: calcium carbonate (Os-Alfonzo) 1250 (500 Ca) MG tablet, Daily., Disp: , Rfl: cholecalciferol (Vitamin D-3) 50 MCG (2000 UT) capsule, 1 capsule 1 (one) time each day at the sametime., Disp: , Rfl: docusate sodium (Colace) 100 MG tablet, Take 100 mg by mouth 2 (two) times a day as needed, Disp: ,Rfl: escitalopram (Lexapro) 20 MG tablet, TAKE 1 TABLET BY MOUTH DAILY, Disp: 90 tablet, Rfl: 2 estradiol (Estrace) 0.1 MG/GM vaginal cream, Insert 1 g into the vagina 2 (two) times a week, Disp:42.5 g, Rfl: 1 fluticasone (Flonase) 50 MCG/ACT nasal spray, 1 (one) time each day at the same time., Disp: , Rfl: hydroxychloroquine (Plaquenil) 200 MG tablet, Take 200 mg by mouth Daily, Disp: , Rfl: ibuprofen (Motrin IB) 200 MG tablet, Take by mouth, Disp: , Rfl: leflunomide (Arava) 10 MG tablet, Take 1tab daily by mouth with food. No alcohol. Hold if on antibiotics or ill., Disp: , Rfl: meloxicam (Mobic) 15 MG tablet, , Disp: , Rfl: metoprolol succinate XL (Toprol-XL) 25 MG 24 hr tablet, Take 25 mg by mouth Daily, Disp: , Rfl: Multiple Vitamin (Multi Vitamin) tablet, 1 (one) time each day at the same time., Disp: , Rfl: ondansetron ODT (Zofran-ODT) 4 MG disintegrating tablet, , Disp: , Rfl: pantoprazole (ProtoNix) 40 MG EC tablet, 2 (two) times a day, Disp: , Rfl: predniSONE (Deltasone) 5 MG tablet, Daily as needed, Disp: , Rfl: QUEtiapine (SEROquel) 25 MG tablet, TAKE 1 TABLET BY MOUTH DAILY, Disp: 30 tablet, Rfl: 3 valACYclovir (Valtrex) 1 g tablet, , Disp: , Rfl: valsartan (Diovan) 160 MG tablet, TAKE 1/2 TABLET BY MOUTH DAILY, Disp: 45 tablet, Rfl: 3 Xeljanz XR 11 MG tablet sustained-release 24 hour, Take 11 mg by mouth in the morning., Disp: , Rfl: cefdinir (Omnicef) 300 MG capsule, Take 1 capsule (300 mg) by mouth in the morning and 1 capsule (300 mg) before bedtime. Do all this for 10 days., Disp: 20 capsule, Rfl: 0 oxybutynin XL (Ditropan-XL) 10 MG 24 hr tablet, Take 1 tablet (10 mg) by mouth Daily Do not crush, chew, or split., Disp: 90 tablet, Rfl: 3 No Known Allergies Medications Discontinued During This Encounter Medication Reason meloxicam (Mobic) 15 MG tablet Therapy completed mirabegron ER (Myrbetriq) 50 MG 24 hr tablet Therapy completed valsartan (Diovan) 80 MG tablet Therapy completed Depression: Not at risk (02/01/2024) PHQ-2 PHQ-2 Score: 0 Social History Tobacco Use Smoking status: Former Current packs/day: 0.00 Types: Cigarettes Quit date: 04/04/2001 Years since quittin.8 Smokeless tobacco: Never Tobacco comments: Last smoked : > 10 years Vaping Use Vaping status: Never Used Substance Use Topics Alcohol use: Never Comment: caffeine intake : 1 cup per day ; coffee Drug use: Never PAST MEDICAL HISTORY: SURGICAL/SOCIAL/FAMILY HISTORY Past Medical History: Diagnosis Date Abnormal Pap smear of cervix 1994 Arthritis Bilateral carpal tunnel syndrome Bronchitis Chronic maxillary sinusitis 05/28/2019 Fatty liver Headache Heart palpitations 11/15/2022 Hematuria Hemorrhoids 2012 History of lumbar fusion L5-S1 History of lumbar spinal fusion Hx of scarlet fever Hypertension (CMS/HCC) IBS (irritable bowel syndrome) 2013 Inflammatory bowel disease Kidney stone 2015 Migraine headache (CMS/HCC) PAT (paroxysmal atrial tachycardia) (CMS/HCC) 02/17/2023 Rheumatoid arthritis (CMS/HCC) rheum treating Stress incontinence in female 04/27/2017 Ureteral stricture right Vasculitis (CMS/HCC) 02/25/2018 Past Surgical History: Procedure Laterality Date BACK SURGERY 2022 lumbar CARPAL TUNNEL RELEASE Bilateral CERVICAL CONIZATION W/ LASER 1994 CHOLECYSTECTOMY COLONOSCOPY 2012 hemorrhoids and IBS EGD 2012 with biopsy - Esophageal polyp HAND TENDON SURGERY Right LAPAROSCOPY ABDOMEN DIAGNOSTIC x 2 LYMPHADENECTOMY 1979 neck [address] SURGICAL HISTORY Ct abd, / pelvis - fatty liver OTHER SURGICAL HISTORY Nephrolithiaiss - Dr. Moreira PA LAP,CHOLECYSTECTOMY 03/30/2017 Dr. Younger [place] SALPINGECTOMY COMPLETE/PARTIAL UNI/BI SPX 2005 operative scope - BSO / lysis of adhesions /fulguration of pelvic lesions SPINAL FUSION 2012 screws TENDON REPAIR Left 2022 Hamstring TOTAL KNEE ARTHROPLASTY 03/2018 meniscus tear TOTAL KNEE ARTHROPLASTY Right 2021 TOTAL VAGINAL HYSTERECTOMY 1998 URETERAL STENT PLACEMENT Right 2014 Family History Problem Relation Name Age of Onset Thyroid cancer Mother Diabetes Mother Heart disease Mother No Known Problems Sister No Known Problems Brother Breast cancer Paternal Grandmother No Known Problems Son REVIEW OF SYMPTOMS: Review of Systems Constitutional: Positive for fatigue. HENT: Positive for congestion, rhinorrhea and sore throat. Respiratory: Positive for cough. Cardiovascular: Negative for chest pain. Gastrointestinal: Negative for abdominal distention, abdominal pain and vomiting. Skin: Negative for rash. OBJECTIVE: 02/01/2024 10:51 AM 01/04/2024 12:48 PM 10/03/2023 1:57 PM Vitals BMI 34.77 kg/m2 34.46 kg/m2 35.08 kg/m2 BSA (m2) 2.19 m2 2.17 m2 2.2 m2 Systolic 116 120 124 Diastolic 74 70 76 Heart Rate 68 60 62 SpO2 97 % 98 % 97 % Temp 98 F 98.2 F 98.3 F Height (in) 5' 7 5' 7 5' 7 Weight (lb) 222 220 224 Visit Report Report Report Report GENERAL EXAM: Physical Exam Vitals reviewed. Constitutional: General: She is not in acute distress. Appearance: Normal appearance. She is obese. She is not ill-appearing. HENT: Head: Normocephalic and atraumatic. Right Ear: Tympanic membrane is injected and bulging. Left Ear: Tympanic membrane is injected and bulging. Nose: Right Sinus: Maxillary sinus tenderness and frontal sinus tenderness present. Left Sinus: Maxillary sinus tenderness and frontal sinus tenderness present. Mouth/Throat: Mouth: Mucous membranes are moist. Eyes: General: No scleral icterus. Extraocular Movements: Extraocular movements intact. Cardiovascular: Rate and Rhythm: Normal rate and regular rhythm. Heart sounds: No murmur heard. Pulmonary: Effort: Pulmonary effort is normal. Breath sounds: Normal breath sounds. Musculoskeletal: General: Normal range of motion. Cervical back: Normal range of motion and neck supple. Skin: General: Skin is warm and dry. Findings: No rash. Neurological: General: No focal deficit present. Mental Status: She is alert and oriented to person, place, and time. Mental status is at baseline. Psychiatric: Mood and Affect: Mood normal. Behavior: Behavior normal. Thought Content: Thought content normal. Judgment: Judgment normal. ADDITIONAL EXAM: documented in this [facility]10-02-2024 History of Present illness Narrative* Anibal Juan DO - 01/04/2024 1:00 PM EDT Images from the original note were not included. Caty Hills is a 63 y.o. female presents with chief complaint of Chief Complaint Patient presents with UTI History of Present Illness Started with urinary frequency and burning 2 weeks ago. Has not taken anything otc. Denies fever. Having issues with myrbetriq prescription from Dr Rosenthal and is going back and forth between generic and brand, waiting on a call back but leaving town for 5 days and wanted to make sure she did not have uti. She has been experiencing increased frequency and a burning sensation during urination for the past2 weeks. She has not been taking any medication for it due to issues with Myrbetriq and her insurance. She reports that she had a fever and chills approximately 1.5 weeks ago, but these symptoms havesince subsided. Additionally, she mentions experiencing urinary incontinence. She has a history of rheumatoid arthritis (RA). She tried to stay off one of the medications for a while, which led to a recurrence of iritis. About 6 months ago, she experienced severe spasms. She has since changed her RA medication and is hoping that the spasms will subside. SUBJECTIVE: CURRENT MEDICATIONS: ALLERGIES/DISCONTINUE MEDICATIONS Current Outpatient Medications: albuterol HFA 90 mcg/act inhaler, , Disp: , Rfl: calcium carbonate (Os-Alfonzo) 1250 (500 Ca) MG tablet, Daily., Disp: , Rfl: cholecalciferol (Vitamin D-3) 50 MCG (2000 UT) capsule, 1 capsule 1 (one) time each day at the sametime., Disp: , Rfl: docusate sodium (Colace) 100 MG tablet, Take 100 mg by mouth 2 (two) times a day as needed, Disp: ,Rfl: escitalopram (Lexapro) 20 MG tablet, TAKE 1 TABLET BY MOUTH DAILY, Disp: 90 tablet, Rfl: 2 estradiol (Estrace) 0.1 MG/GM vaginal cream, Insert 1 g into the vagina 2 (two) times a week, Disp:42.5 g, Rfl: 1 fluticasone (Flonase) 50 MCG/ACT nasal spray, 1 (one) time each day at the same time., Disp: , Rfl: hydroxychloroquine (Plaquenil) 200 MG tablet, Take 200 mg by mouth Daily, Disp: , Rfl: ibuprofen (Motrin IB) 200 MG tablet, Take by mouth, Disp: , Rfl: leflunomide (Arava) 10 MG tablet, Take 1tab daily by mouth with food. No alcohol. Hold if on antibiotics or ill., Disp: , Rfl: meloxicam (Mobic) 15 MG tablet, Take 15 mg by mouth in the morning., Disp: , Rfl: metoprolol succinate XL (Toprol-XL) 25 MG 24 hr tablet, Take 25 mg by mouth Daily, Disp: , Rfl: mirabegron ER (Myrbetriq) 50 MG 24 hr tablet, Take 1 tablet (50 mg) by mouth at bedtime Do not crush, chew, or split., Disp: 90 tablet, Rfl: 3 Multiple Vitamin (Multi Vitamin) tablet, 1 (one) time each day at the same time., Disp: , Rfl: ondansetron ODT (Zofran-ODT) 4 MG disintegrating tablet, , Disp: , Rfl: pantoprazole (ProtoNix) 40 MG EC tablet, 2 (two) times a day, Disp: , Rfl: predniSONE (Deltasone) 5 MG tablet, Daily as needed, Disp: , Rfl: QUEtiapine (SEROquel) 25 MG tablet, TAKE 1 TABLET BY MOUTH DAILY, Disp: 30 tablet, Rfl: 3 valACYclovir (Valtrex) 1 g tablet, , Disp: , Rfl: valsartan (Diovan) 160 MG tablet, TAKE 1/2 TABLET BY MOUTH DAILY, Disp: 45 tablet, Rfl: 3 Xeljanz XR 11 MG tablet sustained-release 24 hour, Take 11 mg by mouth in the morning., Disp: , Rfl: nitrofurantoin, macrocrystal-monohydrate, (Macrobid) 100 MG capsule, Take 1 capsule (100 mg) by mouth in the morning and 1 capsule (100 mg) before bedtime. Do all this for 7 days., Disp: 14 capsule, Rfl: 0 No Known Allergies Medications Discontinued During This Encounter Medication Reason predniSONE (Deltasone) 5 MG tablet Therapy completed potassium chloride CR (Klor-Con M20) 20 MEQ ER tablet Therapy completed valsartan (Diovan) 80 MG tablet Therapy completed Trulance tablet tablet Therapy completed PAST MEDICAL HISTORY: SURGICAL/SOCIAL/FAMILY HISTORY DEPRESSION SCREEN: Past Medical History: Diagnosis Date Abnormal Pap smear of cervix 1994 Arthritis Bilateral carpal tunnel syndrome Bronchitis Chronic maxillary sinusitis 05/28/2019 Fatty liver Headache Heart palpitations 11/15/2022 Hematuria Hemorrhoids 2012 History of lumbar fusion L5-S1 History of lumbar spinal fusion Hx of scarlet fever Hypertension (CMS/HCC) IBS (irritable bowel syndrome) 2012 Inflammatory bowel disease Kidney stone 2015 Migraine headache (CMS/HCC) PAT (paroxysmal atrial tachycardia) (CMS/HCC) 02/17/2023 Rheumatoid arthritis (CMS/HCC) rheum treating Stress incontinence in female 04/27/2017 Ureteral stricture right Vasculitis (CMS/HCC) 02/25/2018 Past Surgical History: Procedure Laterality Date BACK SURGERY 2022 lumbar CARPAL TUNNEL RELEASE Bilateral CERVICAL CONIZATION W/ LASER 1994 CHOLECYSTECTOMY COLONOSCOPY 2012 hemorrhoids and IBS EGD 2012 with biopsy - Esophageal polyp HAND TENDON SURGERY Right LAPAROSCOPY ABDOMEN DIAGNOSTIC x 2 LYMPHADENECTOMY 1979 neck OTHER SURGICAL HISTORY Ct abd, / pelvis - fatty liver OTHER SURGICAL HISTORY Nephrolithiaiss - Dr. Moreira PA LAP,CHOLECYSTECTOMY 03/30/2017 Dr. Younger PA SALPINGECTOMY COMPLETE/PARTIAL UNI/BI SPX 2005 operative scope - BSO / lysis of adhesions /fulguration of pelvic lesions SPINAL FUSION 2012 screws TENDON REPAIR Left 2022 Hamstring TOTAL KNEE ARTHROPLASTY 03/2018 meniscus tear TOTAL KNEE ARTHROPLASTY Right 2021 TOTAL VAGINAL HYSTERECTOMY 1998 URETERAL STENT PLACEMENT Right 2014 Depression: Not at risk (01/04/2024) Received from [facility] PHQ-2 Patient Health Questionnaire-2 Score: 0 Social History Tobacco Use Smoking status: Former Current packs/day: 0.00 Types: Cigarettes Quit date: 04/04/2001 Years since quittin.7 Smokeless tobacco: Never Tobacco comments: Last smoked : > 10 years Vaping Use Vaping status: Never Used Substance Use Topics Alcohol use: Never Comment: caffeine intake : 1 cup per day ; coffee Drug use: Never Family History Problem Relation Name Age of Onset Thyroid cancer Mother Diabetes Mother Heart disease Mother No Known Problems Sister No Known Problems Brother Breast cancer Paternal Grandmother No Known Problems Son REVIEW OF SYMPTOMS: Review of Systems Constitutional: Negative for fatigue. HENT: Negative for rhinorrhea. Respiratory: Negative for cough and shortness of breath. Cardiovascular: Negative for chest pain. Gastrointestinal: Negative for abdominal distention. Genitourinary: Positive for frequency and urgency. Skin: Negative for rash. Neurological: Negative for dizziness. All other systems reviewed and are negative. OBJECTIVE: 01/04/2024 12:48 PM 10/03/2023 1:57 PM 08/12/2023 9:24 AM Vitals BMI 34.46 kg/m2 35.08 kg/m2 36.02 kg/m2 BSA (m2) 2.17 m2 2.2 m2 2.22 m2 Systolic 120 124 Diastolic 70 76 Heart Rate 60 62 SpO2 98 % 97 % Temp 98.2 F 98.3 F Height (in) 5' 7 5' 7 5' 7 Weight (lb) 220 224 230 Visit Report Report Report Report GENERAL EXAM: Physical Exam Vitals reviewed. Constitutional: General: She is not in acute distress. Appearance: Normal appearance. She is obese. She is not ill-appearing. HENT: Head: Normocephalic and atraumatic. Nose: Nose normal. Mouth/Throat: Mouth: Mucous membranes are moist. Eyes: General: No scleral icterus. Extraocular Movements: Extraocular movements intact. Cardiovascular: Rate and Rhythm: Normal rate and regular rhythm. Heart sounds: No murmur heard. Pulmonary: Effort: Pulmonary effort is normal. Breath sounds: Normal breath sounds. Musculoskeletal: General: Normal range of motion. Cervical back: Normal range of motion and neck supple. Skin: General: Skin is warm and dry. Findings: No rash. Neurological: General: No focal deficit present. Mental Status: She is alert and oriented to person, place, and time. Mental status is at baseline. Psychiatric: Mood and Affect: Mood normal. Behavior: Behavior normal. Thought Content: Thought content normal. Judgment: Judgment normal. ADDITIONAL EXAM: ASSESSMENT AND PLAN: Caty was seen today for uti. Diagnoses and all orders for this visit: Acute cystitis with hematuria She has been experiencing urinary frequency and burning for the last 2 weeks. There is a history ofhematuria and recurrent urinary tract infections. A prescription for Macrobid, 1 pill twice a day for 7 days, will be sent to her pharmacy, [facility]. A urine culture will be conducted to ensure appropriate antibiotic coverage. If symptoms persist, further evaluation for potential underlying causes such as urethral narrowing or scarring will be considered. - nitrofurantoin, macrocrystal-monohydrate, (Macrobid) 100 MG capsule; Take 1 capsule (100 mg) by mouth in the morning and 1 capsule (100 mg) before bedtime. Do all this for 7 days. Dysuria - POCT Urinalysis dipstick - Urine culture; Future - Urine culture ANIBAL JUAN D.O. This note was entered using Blinkit copilot. Grammatical and dictation errors maybe present in translation *I have reviewed and reconciled the history and medication list with the patient today* documented in this [facility] [id number] History of Present illness Narrative* Chris No MD - 12/26/2023 11:30 AM EDT Images from the original note were not included. Rheumatology Outpatient Clinic Date of Service: 12/26/2023 Patient: Caty Hills Medical Record: [id number] Primary Care Physician: Anibal Juan DO, DO Last Rheumatology visit: 10/24/2023 (with Chris No) History of Present Illness Caty Hills is a 63 year old White female who presents on 12/26/2023 for an in-person visit for evaluation of Rheumatoid Arthritis (Follow up). Her most recent CHERIE was negative (07/11/2020). HISTORY OF PRESENT ILLNESS This patient is known to me from my previous practice with [facility] with diagnosis of rheumatoid arthritis. This patient has been on DMARD therapy in the past with methotrexate and has not tolerated it well. She had been on a sequence of Biologics and when last seen in May 2021 wason Rinvoq 15 mg daily and doing well. Then in June 2021 that she developed a bout of iritis. She was being seen by a different real estate specialist with [facility] and switch her off of Rinvoq and placed her on Humira for the iritis. The patient has tolerated the Humira and it is improved her iritis. She has not needed to be on topical steroid treatment for her eyes in several months now. She does get some breakthrough discomfort in her eyes but no full-blown iritis. Where is a bigger problem is off of the Rinvoq she is had escalation of rheumatoid arthritis activity in her hands, wrists, shoulders, right knee and toes despite being on the Humira. Her other real estate specialist is even attempted to place methotrexate in combination with the Humira and this did not improve her rheumatoid arthritis and she felt ill on the methotrexate and has discontinued it. She was inquiring as to whether or not she would be allowed to go back onto the Rinvoq. Aside from the iritis she has not experienced any other extra- articular manifestations of rheumatoid arthritis. She shares with me that she had her right knee replaced 3 months ago and it is not doing as well as the left knee did from 2-1/2 years ago. The right knee remains quite swollen and painful and she believes the rheumatoid arthritismay be contributing to the right knee pain. INTERVAL HISTORY Patient returns for reevaluation and management of her rheumatoid arthritis. Since last visit patient has maintained hydroxychloroquine 400 mg daily and switched off of leflunomide to Xeljanz XR 11 mg daily and she is just started this 1 month ago. She is having some nausea and some low-grade diarrhea each morning and she believes it may have been the gabapentin which she stopped 2 months ago. With the Xeljanz however the symptoms seem to be persisting and it is not 100% clear if the Xeljanz iscontributing to the symptoms. She also remains on meloxicam. Presently there is still a fair amountof breakthrough swelling, stiffness and pain in the fingers, wrists, shoulders, knees and feet. Shree have her right thumb surgery about 1 month ago and was fairly extensive and still in a brace. Her fatigue remains about the same and is a challenge for her. There are no new extra-articular manifestations of rheumatoid arthritis. Her general health has been unchanged from last visit.] Rheum/Ortho Arthrocentesis Injections (last 5) 03/02/2023 12:44 Injection History Location thumb Thumb Site R thumb [facility] Patient-Entered Data PAIN EVALUATION No data found in the last 1 encounters. PROMIS Assessments 07/31/2023 PROMIS Assessments Physical Health Percentile 10 Mental Health Percentile 26 Pain Score 3 Pain Interference Percentile 4 Fatigue Percentile 10 Physical Function Percentile 7 RAPID 3 [place] Activities of Daily Living 07/31/2023 3:09 PM Dress self? With SOME difficulty Get in and out of bed? With SOME difficulty Walk outdoors? With SOME difficulty Wash and dry body? Without ANY difficulty Get in and out of car? With SOME difficulty RAPID 3 Disease Activity Weighed Score Levels: 0 - 1: Near Remission 1.3 - 2.0: Low Severity 2.3 - 4.0: Moderate Severity 4.3 - 10.0: High Severity 07/31/2023 RAPID-3 Weighed Score RAPID 3 Weighed Score 4.83 (High severity ) Review of Systems Review of Systems CONSTITUTION: Negative for: Weight loss or gain, Fever. Chills, Night sweats HEENT: Negative for: Nosebleeds, Mouth sores, Trouble swallowing, Dry mouth RESPIRATORY: Negative for: Cough, Shortness of breath, Pain with breathing, Coughing up blood GASTROINTESTINAL: Positive for: Diarrhea and Abdominal pain Negative for: Melena and Heartburn MUSCULOSKELETAL: Positive for: Arthralgias and Morning Joint Stiffness Negative for: Myalgias, Muscle weakness and Joint swelling NEUROLOGICAL: Negative for: Headaches, Numbness, Memory loss, SKIN: Negative for: Rashes, Sun sensitive rashes, Skin color changes, Hair loss, Nail changes EYES: Negative for: Eye pain, Eye redness, Visual disturbance, Eye dryness CARDIOVASCULAR: Negative for: Chest pain, Leg swelling, Arrhythmia, Presyncope GENITOURINARY: Negative for: Dysuria, Hematuria, Ulceration HEMATOLOGIC/LYMPHATIC: Negative for: Swollen glands All other reviewed and negative other than HPI. Past Medical History PAST MEDICAL HISTORY Diagnosis Date Anxiety Class 2 obesity in adult Heart palpitations Hypertension Hypokalemia NONE Rheumatoid arthritis (HCC) Seizure-like activity (HCC) SVT (supraventricular tachycardia) (HCC) Traumatic brain injury (HCC) slipped on ice and hit head on concrete and passed out for 2 min in 2009 Past Surgical History PAST SURGICAL HISTORY Procedure Laterality Date ANESTHESIA VAGINAL HYSTERECTOMY INCL BIOPSY 1996 ENDOMETRIOSIS, PAIN , CYSTS BACK SURGERY HX 2014 spinal fusion with screws CARPAL TUNNEL RIGHT WRIST 1996 RIGHT AND LEFT WRIST CONIZATION CERVIX W/WO D&C RPR KNIFE/LASER 1994 DYSPLASIA DILATION & CURETTAGE DX&/THER NONOBSTETRIC Dilation & curettage DILATION & CURETTAGE DX&/THER NONOBSTETRIC Dilation & curettage KNEE SURGERY HX PAST SURGICAL HISTORY OF 1978 REMOVAL OF BENIGN CYST RIGHT NECK Family History FAMILY HISTORY Problem Relation Age of Onset Thyroid Mother Coronary Artery Disease Mother Arthritis Mother Asthma Mother Hypertension Mother Cancer Mother Arrythmias Mother Afib Heart Failure Mother CHF-cause of Stroke Mother Diabetes Mother Cancer Father testicular cancer Heart disease Half-sister Thyroid Brother Hypertension Brother Heart disease Maternal Grandmother Heart disease Maternal Grandfather Cancer Paternal Grandmother bone Breast Cancer Paternal Grandmother Heart disease Paternal Grandfather Mental illness Daughter Multiple Sclerosis Son Schizophrenia Paternal Aunt Social History Social History Tobacco Use Smoking status: Former Current packs/day: 0.00 Average packs/day: 0.5 packs/day for 20.0 years (10.0 ttl pk-yrs) Types: Cigarettes Start date: 09/19/1980 Quit date: 09/19/2000 Years since quittin.2 Smokeless tobacco: Never Vaping Use Vaping status: Never Used Substance Use Topics Alcohol use: Yes Comment: social Drug use: No Current Medications Current Outpatient Medications Medication Sig meloxicam (MOBIC) 15 mg tablet take 1 tablet by mouth daily tofacitinib (XELJANZ XR) 11 mg tablet, extended release Take 1 tablet (11 mg) by mouth once daily. predniSONE (DELTASONE) 5 mg tablet Take up 3 tabs daily as needed metoprolol tartrate, short acting, (LOPRESSOR) 50 mg tablet Take 25 mg by mouth twice daily. Valsartan-hydroCHLOROthiazide 160-25 mg per tablet Take 1 tablet by mouth once daily. escitalopram oxalate (LEXAPRO) 20 mg tablet Take 20 mg by mouth daily at bedtime. QUEtiapine (SEROQUEL) 25 mg tablet Take 25 mg by mouth at bedtime as needed. Take 1-2 tabs as needed for sleep Ynulhjazlnsqs-Qqjjldsh-Qykvzc (MULTIVITAMIN 50 PLUS) tab Take 1 tablet by mouth once daily. pantoprazole DR (PROTONIX) 40 mg tablet Take 40 mg by mouth once daily. hydrOXYchloroQUINE (PLAQUENIL) 200 mg tablet Take two tabs by mouth daily multivitamin tablet Take 1 tablet by mouth once daily. ascorbic acid, vitamin C, (VITAMIN C) 500 mg tablet Take 1 tablet by mouth two times a day with meals. No current facility-administered medications for this visit. Last Ophthalmology Check for Plaquenil (Hydroxychloroquine) Last OCT Macula Exam No resulted procedures found. Last Visual Field Exam No resulted procedures found. Labs Latest Ref Rng & Units 08/01/2023 05/26/2023 02/03/2023 11/08/2022 CBC WBC 3.70 - 11.00 k/uL 5.89 5.84 6.03 4.84 Hemoglobin 11.5 - 15.5 g/dL 12.7 12.2 11.9 11.8 Hematocrit 36.0 - 46.0 % 38.9 36.3 35.7 34.8 Platelet Count 150 - 400 k/uL 204 222 235 204 Abs Neut (ANC) 1.45 - 7.50 k/uL 2.89 3.06 1.93 2.23 Abs Lymph 1.00 - 4.00 k/uL 2.21 1.87 3.45 1.73 Latest Ref Rng & Units 08/01/2023 05/26/2023 02/03/2023 11/08/2022 CMP Sodium 136 - 144 mmol/L 138 140 140 Potassium 3.7 - 5.1 mmol/L 4.4 3.8 4.0 Chloride 97 - 105 mmol/L 102 103 103 CO2 22 - 30 mmol/L 25 25 26 Glucose 74 - 99 mg/dL 91 105 99 BUN 7 - 21 mg/dL 21 17 21 Creatinine 0.58 - 0.96 mg/dL 0.75 0.90 0.73 1.15 Calcium 8.5 - 10.2 mg/dL 9.3 9.0 9.2 AST 13 - 35 U/L 18 24 21 22 ALT 7 - 38 U/L 15 21 14 20 Alkaline Phosphatase 34 - 123 U/L 73 61 58 Latest Ref Rng & Units 08/01/2023 05/26/2023 02/03/2023 04/06/2022 ESR, WSR WSR 0 - 20 mm/hr 8 9 5 15 Latest Ref Rng & Units 05/26/2023 07/11/2020 12/21/2002 CRP CRP <0.9 mg/dL 0.7 <0.3 0.9 Latest Ref Rng & Units 12/21/2002 CK CK 30 - 220 U/L 76 Latest Ref Rng & Units 05/26/2023 04/06/2022 Hepatitis Screen Hep B Surface Ag Negative Negative Negative 05/26/2023 04/06/2022 TB Screen TB Interpretation Infection with M. tuberculosis complex is unlikely. If latent tuberculosis infection is highly suspected, a negative result does not rule out the infection. Specimens from immunocompromised patients and those <5 years of age may show false negative results. In case of a contactinvestigation, please repeat 8-12 weeks after a known exposure. Infection with M. tuberculosis complex is unlikely. If latent tuberculosis infection is highly suspected, a negative result does not rule out the infection. Specimens from immunocompromised patients and those <5 years of age may show false negative results. In case of a contact investigation, please repeat 8-12 weeks after a knownexposure. TB Result Negative Negative Latest Ref Rng & Units 01/18/2021 07/11/2020 01/30/2003 Antibodies CHERIE by EIA OD Ratio 0.4 0.6 CHERIE by EIA, Qual Negative Negative Sm Antibody <1.0 AI <0.2 Ribosomal MINE [employer]PERATOR <1.0 AI <0.2 Chromatin Antibody <1.0 AI 0.2 SSA Antibody <1.0 AI <0.2 SSB Antibody <1.0 AI <0.2 MINE MOTOR OPERATOR Antibody <1.0 AI <0.2 Scleroderma Ab, IgG <1.0 AI <0.2 Centromere Ab <1.0 AI <0.2 SOHA-1 ANTIBODY, IGG <1.0 AI <0.2 PT Sec 9.7 - 13.0 sec 10.3 PT INR 0.9 - 1.3 1.0 APTT 23.0 - 32.4 sec 24.2 Imaging Last XR Hand/Finger - Impression Only XR HAND GENERAL 3V PA/LAT/OBL RIGHT Exam End: 09/01/2023 10:30 AM (Final result) Impression: *No fracture. Remote deformity consistent with prior trauma in the the ulnar styloid. Scattered distal degenerative changes. No erosions. First carpometacarpal, radiocarpal, and distal radial ulnar joint degenerative changes are present. No malalignment. Electronically signed: Anibal Larsen MD. Last MRI Hand - Impression Only No resulted procedures found. Last XR Chest - Impression Only XR CHEST 1V FRONTAL PORT Exam End: 12/30/2018 12:50 PM (Final result) Impression: IMPRESSION: No infiltrate. ... Last XR Cervical Spine - Impression Only No resulted procedures found. Health Maintenance Current Immunizations Reviewed on 04/06/2022 Name Date COVID-19 vaccine, monovalent (MODERNA) 08/22/2020, 07/23/2020 pneumococcal (PCV20) vaccine 08/20/2021 Physical Exam GENERAL APPEARANCE: Well groomed. Alert and oriented x 3. In no distress. VITAL SIGNS: BP 134/84 Pulse 67 Resp 16 Ht 5' 10.945 (1.80m) Wt 219 lb 12.8 oz (99.7kg) BMI 30.70 kg/(m^2). SKIN: No rash, thickening, nodules, discoloration. EYES: PERRL, EOMI. No inflammation seen. HENT: External examination and palpation of the ears and nose normal. Lips, teeth, and gums normal.Oropharynx and tongue normal. No lesions or exudate. NECK: No mass or asymmetry. RESPIRATORY: Normal respiratory effort. Clear to auscultation and percussion. CARDIOVASCULAR: Heart RRR without gallop, murmur, or rub. No bruits across chest or neck. EXTREMITIES: Normal and equal pulses in all 4 extremities. No edema. ABDOMEN: BS normal. No bruits, No tenderness, mass, or hepatosplenomegaly. NEUROLOGIC: Sensory exam normal. MUSCULOSKELETAL EXAMINATION: Soft tissue tender points: None Motor exam: Normal 5+/5+ muscle strength. Normal bulk and tone. Cervical spine: No visible abnormalities. Full ROM. No tenderness to palpation. Thoracic spine: No visible abnormalities. No tenderness to palpation. Lumbar spine: No visible abnormalities. Full ROM. No tenderness to palpation. Joint Exam 12/26/2023 Right Left Glenohumeral Tender Wrist Tender MCP 1 Tender MCP 2 Tender Tender MCP 3 Tender Tender MCP 4 Tender Tender PIP 2 (finger) Tender Tender PIP 3 (finger) Tender Tender Knee Tender Tender The following joints were examined and normal: Left Sternoclavicular, Right Sternoclavicular, Left Acromioclavicular, Right Acromioclavicular, Right Glenohumeral, Left Elbow, Right Elbow, Right Wrist, Right MCP 1, Left MCP 5, Right MCP 5, Left IP(thumb), Right IP (thumb), Left PIP 4 (finger), Right PIP 4 (finger), Left PIP 5 (finger), Right PIP 5 (finger), Left Ankle, Right Ankle, Left MTP 1, Right MTP 1, Left MTP 2, Right MTP 2, Left MTP 3,Right MTP 3, Left MTP 4, Right MTP 4, Left MTP 5, Right MTP 5 Joint Exam Data (across time) 12/26/2023 10/24/2023 08/01/2023 05/26/2023 02/03/2023 Joint Exam Total Tender 15 17 17 14 4 Total Swollen 0 5 5 3 1 Right wrist and hand are braced and were not examined. Impression Diagnoses: (Z79.899) High risk medication use (primary encounter diagnosis) (M05.79) Rheumatoid arthritis involving multiple sites with positive rheumatoid factor (HCC) (Z86.69) H/O iritis Plan Orders this visit: Office Visit on 12/26/23 hydrOXYchloroQUINE (PLAQUENIL) 200 mg tablet Discussed current status of rheumatoid arthritis as active on current treatment with hydroxychloroquine 400 mg daily and Xeljanz XR 11 mg daily now just in the past month. Discussed monitoring her current treatment and she is only been on the Xeljanz 1 month so we will defer on labs and reassess in2 months (3 months total on Xeljanz). Her previous labs prior to Xeljanz were quite stable. Her current supply Xeljanz is stable. We discussed some of the GI side effects may or may not relate to theXeljanz/Rinvoq category and believes it may be the gabapentin. Will double observe a little longer and make some determination if Xeljanz is worth the effort. She will maintain the [id number] mg daily and I refilled this for a 90-day supply and 1 additional refill. Return in about 2 months (around 02/25/2024). I spent a total of 30 minutes on the date of the service which included preparing to see the patient, [id number] patient care, completing clinical documentation, obtaining and/or reviewing separately obtained history, performing a medically appropriate examination, counseling and educating the pat ient/family/caregiver, ordering medications, tests, or procedures, independently interpreting results (not separately reported), and communicating results to the patient/family/caregiver. Medical Decision Making: Problems: Moderate: 1+ chronic illnesses with change Risk: High: High risk from testing/treatment Medical Decision Making Level: 4 - Moderate Chris No MD Rheumatology Date: December 26, 2023 Time: 11:30 AM documented in this encounterJoint [facility] Telephone encounter Note * Telephone Encounter - SamirJosselin MA - 12/15/2023 3:11 PM EDT Images from the original note were not included. Most recent Rheumatology visit: 10/24/2023 (with Chris No) Last Bone Density on file: 11/26/2021 Rheumatology Care Team: None on file Recent Office Visits - This Specialty 10/24/2023 Rheumatoid arthritis involving multiple sites with positive rheumatoid factor (HCC) Rheumatology Chris No MD 08/01/2023 Rheumatoid arthritis involving multiple sites with positive rheumatoid factor (HCC) Rheumatology Chris No MD 05/26/2023 Rheumatoid arthritis involving multiple sites with positive rheumatoid factor (HCC) Rheumatology Chris No MD Upcoming Rheumatology Appointments - Next 365 Days Visit Type Date Time Department [facility] 12/26/2023 11:20 AM [facility] Last Ophthalmology Check for Plaquenil (Hydroxychloroquine) Last OCT Macula Exam No resulted procedures found. Last Visual Field Exam No resulted procedures found. CBC: Latest Ref Rng & Units 05/26/2023 08/01/2023 CBC WBC 3.70 - 11.00 k/uL 5.84 5.89 Hemoglobin 11.5 - 15.5 g/dL 12.2 12.7 Hematocrit 36.0 - 46.0 % 36.3 38.9 Platelet Count 150 - 400 k/uL 222 204 Abs Neut (ANC) 1.45 - 7.50 k/uL 3.06 2.89 Abs Lymph 1.00 - 4.00 k/uL 1.87 2.21 Vitamin D: None on file in the last 6 months LFT: Latest Ref Rng & Units 05/26/2023 08/01/2023 CMP Sodium 136 - 144 mmol/L 140 138 Potassium 3.7 - 5.1 mmol/L 3.8 4.4 Chloride 97 - 105 mmol/L 103 102 CO2 22 - 30 mmol/L 25 25 Glucose 74 - 99 mg/dL 105 91 BUN 7 - 21 mg/dL 17 21 Creatinine 0.58 - 0.96 mg/dL 0.90 0.75 Calcium 8.5 - 10.2 mg/dL 9.0 9.3 AST 13 - 35 U/L 24 18 ALT 7 - 38 U/L 21 15 Alkaline Phosphatase 34 - 123 U/L 61 73 Hepatic Function: Creatinine: Latest Ref Rng & Units 05/26/2023 08/01/2023 Creatinine Creatinine 0.58 - 0.96 mg/dL 0.90 0.75 ESR/CRP: Latest Ref Rng & Units 05/26/2023 08/01/2023 ESR, WSR WSR 0 - 20 mm/hr 9 8 Latest Ref Rng & Units 07/11/2020 05/26/2023 CRP CRP <0.9 mg/dL <0.3 0.7 Uric Acid: None on file in the last 6 months Open Standing (Multiple Instance) Lab Orders None Open Future (Single Instance) Lab Orders None [facility]09-12-[facility] Miscellaneous Notes* Telephone Encounter - Josselin Dawson MA - 12/15/2023 3:11 PM EDT Images from the original note were not included. Most recent Rheumatology visit: 10/24/2023 (with Chris No) Last Bone Density on file: 11/26/2021 Rheumatology Care Team: None on file Recent Office Visits - This Specialty 10/24/2023 Rheumatoid arthritis involving multiple sites with positive rheumatoid factor (HCC) Rheumatology Chris No MD 08/01/2023 Rheumatoid arthritis involving multiple sites with positive rheumatoid factor (HCC) Rheumatology Chris No MD 05/26/2023 Rheumatoid arthritis involving multiple sites with positive rheumatoid factor (HCC) Rheumatology Chris No MD Upcoming Rheumatology Appointments - Next 365 Days Visit Type Date Time Department [facility] 12/26/2023 11:20 AM [facility] RE[facility] Last Ophthalmology Check for Plaquenil (Hydroxychloroquine) Last OCT Macula Exam No resulted procedures found. Last Visual Field Exam No resulted procedures found. CBC: Latest Ref Rng & Units 05/26/2023 08/01/2023 CBC WBC 3.70 - 11.00 k/uL 5.84 5.89 Hemoglobin 11.5 - 15.5 g/dL 12.2 12.7 Hematocrit 36.0 - 46.0 % 36.3 38.9 Platelet Count 150 - 400 k/uL 222 204 Abs Neut (ANC) 1.45 - 7.50 k/uL 3.06 2.89 Abs Lymph 1.00 - 4.00 k/uL 1.87 2.21 Vitamin D: None on file in the last 6 months LFT: Latest Ref Rng & Units 05/26/2023 08/01/2023 CMP Sodium 136 - 144 mmol/L 140 138 Potassium 3.7 - 5.1 mmol/L 3.8 4.4 Chloride 97 - 105 mmol/L 103 102 CO2 22 - 30 mmol/L 25 25 Glucose 74 - 99 mg/dL 105 91 BUN 7 - 21 mg/dL 17 21 Creatinine 0.58 - 0.96 mg/dL 0.90 0.75 Calcium 8.5 - 10.2 mg/dL 9.0 9.3 AST 13 - 35 U/L 24 18 ALT 7 - 38 U/L 21 15 Alkaline Phosphatase 34 - 123 U/L 61 73 Hepatic Function: Creatinine: Latest Ref Rng & Units 05/26/2023 08/01/2023 Creatinine Creatinine 0.58 - 0.96 mg/dL 0.90 0.75 ESR/CRP: Latest Ref Rng & Units 05/26/2023 08/01/2023 ESR, WSR WSR 0 - 20 mm/hr 9 8 Latest Ref Rng & Units 07/11/2020 05/26/2023 CRP CRP <0.9 mg/dL <0.3 0.7 Uric Acid: None on file in the last 6 months Open Standing (Multiple Instance) Lab Orders None Open Future (Single Instance) Lab Orders None documented in this encounterJoint [facility]08-[facility] Telephone encounter Note * Telephone Encounter - Shaan Tay RPh - 11/11/2023 4:53 AM EDT Prior authorization for pended medication(s) has been approved; however, due to insurance restrictions Rx must be filled at [facility] . If refill request approved, eRx will be sent to above Specialty Pharmacy for processing. Thank you. NOTE: Initial prior auth was completed by [facility] and expires on 11/07/24. Future PA renewals will be the responsibility of the provider's office. Pended Orders ID Status Description Pended By When Reason [id number] Pended tofacitinib (XELJANZ XR) 11 mg tablet, extended release-DAILY Shaan Tay RPh11/11/23 0453 Shaan Tay RPh Clinical Pharmacist - Biologics: Allergy, Immunology, and Inflammatory [facility] ; Pool: [facility] Pool #: [id number] [facility]08-09-2024 Miscellaneous Notes* Telephone Encounter - Shaan Tay RPh - 11/11/2023 4:53 AM EDT Prior authorization for pended medication(s) has been approved; however, due to insurance restrictions Rx must be filled at [facility] . If refill request approved, eRx will be sent to above Specialty Pharmacy for processing. Thank you. NOTE: Initial prior auth was completed by [facility] and expires on 11/07/24. Future PA renewals will be the responsibility of the provider's office. Pended Orders ID Status Description Pended By When Reason [id number] Pended tofacitinib (XELJANZ XR) 11 mg tablet, extended release-DAILY Shaan Tay RPh11/11/23 0453 Shaan Tay RPh Clinical Pharmacist - Biologics: Allergy, Immunology, and Inflammatory [facility] ; Pool: [facility] Pool #: [id number] documented in this encounterJoint [facility]08-07-2024 Telephone encounter Note * Telephone Encounter - Marianela Mobley LPN - 11/09/2023 9:49 AM EDT Call placed to patient, she states she does not know who to call to get her medication. Advised patient that she [facility] and [facility] Patient states she does have the phone number for [facility] andwill be calling them. [facility]08-07-2024 Miscellaneous Notes* Telephone Encounter - Marianela Mobley LPN - 11/09/2023 9:49 AM EDT Call placed to patient, she states she does not know who to call to get her medication. Advised patient that she needs to call and [facility] Patient states she does have the phone number for [facility] andwill be calling them. documented in this encounterJoint [facility]07-23-2024 Telephone encounter Note * Telephone Encounter - Marianela Mobley LPN - 10/25/2023 4:20 PM EDT Please advise if agreeable to prescribe steroids as patient will be without meds for 2-4 weeks. [facility]07-[facility] Miscellaneous Notes* Telephone Encounter - Marianela Mobley LPN - 10/25/2023 4:20 PM EDT Please advise if agreeable to prescribe steroids as patient will be without meds for 2-4 weeks. documented in this encounterJoint [facility] District [facility]07-22-2024 History of Present illness Narrative* Filippo Mak - 10/24/2023 5:32 PM EDT [facility] received prescription(s) for Xeljanz from Dr. Chris No's office. Benefits investigation was conducted, indicating that a prior authorization is required by patient's insurance [facility]. Encounter will be updated once prior authorization has been submitted by [facility]. Filippo Mak CPhT, Inflammatory/allergy [facility] [phone] documented in this encounterJoint Township District [facility]07-22-2024 History of Present illness Narrative* Chris No MD - 10/24/2023 11:32 AM EDT Images from the original note were not included. Rheumatology Outpatient Clinic Date of Service: 10/24/2023 Patient: Caty Hills Medical Record: [id number] Primary Care Physician: Anibal Juan, DO, DO Last Rheumatology visit: 08/01/2023 (with Chris No) History of Present Illness Caty Hills is a 63 year old White female who presents on 10/24/2023 for an in-person visit for evaluation of Rheumatoid Arthritis. Her most recent CHERIE was negative (07/11/2020). HISTORY OF PRESENT ILLNESS This patient is known to me from my previous practice with [facility] with diagnosis of rheumatoid arthritis. This patient has been on DMARD therapy in the past with methotrexate and has not tolerated it well. She had been on a sequence of Biologics and when last seen in May 2021 wason Rinvoq 15 mg daily and doing well. Then in June 2021 that she developed a bout of iritis. She was being seen by a different real estate specialist with [facility] and switch her off of Rinvoq and placed her on Humira for the iritis. The patient has tolerated the Humira and it is improved her iritis. She has not needed to be on topical steroid treatment for her eyes in several months now. She does get some breakthrough discomfort in her eyes but no full-blown iritis. Where is a bigger problem is off of the Rinvoq she is had escalation of rheumatoid arthritis activity in her hands, wrists, shoulders, right knee and toes despite being on the Humira. Her other real estate specialist is even attempted to place methotrexate in combination with the Humira and this did not improve her rheumatoid arthritis and she felt ill on the methotrexate and has discontinued it. She was inquiring as to whether or not she would be allowed to go back onto the Rinvoq. Aside from the iritis she has not experienced any other extra- articular manifestations of rheumatoid arthritis. She shares with me that she had her right knee replaced 3 months ago and it is not doing as well as the left knee did from 2-1/2 years ago. The right knee remains quite swollen and painful and she believes the rheumatoid arthritismay be contributing to the right knee pain. INTERVAL HISTORY Patient returns for reevaluation and management of her rheumatoid arthritis. Since last visit patient has discontinued Orencia and initiated hydroxychloroquine 400 mg daily and leflunomide 10 mg daily. She is also meloxicam. Presently there is still a fair amount of breakthrough swelling, stiffnessand pain in the fingers, wrists, shoulders, knees and feet. She also notes that she has a fair amount of leg pain that is emanating from the back and which was really not any better with gabapentin and she has stopped it. She feels she is no better with addition of the leflunomide. In fact she is ex periencing a fair amount of gastrointestinal upset and diarrhea. Her fatigue and anxiety are escalating and this is frustrating. She again did best on Rinvoq but had gastrointestinal upset with this.There are no new extra-articular manifestations of rheumatoid arthritis. Her general health has beenunchanged from last visit. Rheum/Ortho Arthrocentesis Injections (last 5) 03/02/2023 12:44 Injection History Location thumb Thumb Site R thumb [facility] Patient-Entered Data PAIN EVALUATION 10/24/2023 1118 Pain Level: 6 Pain Location: Other: See Comment level 6 pain in shoulders neck feet and hands PROMIS Assessments 07/31/2023 PROMIS Assessments Physical Health Percentile 10 Mental Health Percentile 26 Pain Score 3 Pain Interference Percentile 4 Fatigue Percentile 10 Physical Function Percentile 7 RAPID 3 [place] Activities of Daily Living 07/31/2023 3:09 PM Dress self? With SOME difficulty Get in and out of bed? With SOME difficulty Walk outdoors? With SOME difficulty Wash and dry body? Without ANY difficulty Get in and out of car? With SOME difficulty RAPID 3 Disease Activity Weighed Score Levels: 0 - 1: Near Remission 1.3 - 2.0: Low Severity 2.3 - 4.0: Moderate Severity 4.3 - 10.0: High Severity 07/31/2023 RAPID-3 Weighed Score RAPID 3 Weighed Score 4.83 (High severity ) Review of Systems Review of Systems CONSTITUTION: Negative for: Weight loss or gain, Fever. Chills, Night sweats HEENT: Negative for: Nosebleeds, Mouth sores, Trouble swallowing, Dry mouth RESPIRATORY: Negative for: Cough, Shortness of breath, Pain with breathing, Coughing up blood GASTROINTESTINAL: Negative for: Melena, Diarrhea, Abdominal pain, Heartburn, MUSCULOSKELETAL: Positive for: Arthralgias, Myalgias and Morning Joint Stiffness Negative for: Muscle weakness and Joint swelling NEUROLOGICAL: Negative for: Headaches, Numbness, Memory loss, SKIN: Negative for: Rashes, Sun sensitive rashes, Skin color changes, Hair loss, Nail changes EYES: Negative for: Eye pain, Eye redness, Visual disturbance, Eye dryness CARDIOVASCULAR: Negative for: Chest pain, Leg swelling, Arrhythmia, Presyncope GENITOURINARY: Negative for: Dysuria, Hematuria, Ulceration HEMATOLOGIC/LYMPHATIC: Negative for: Swollen glands All other reviewed and negative other than HPI. Past Medical History PAST MEDICAL HISTORY Diagnosis Date Anxiety Class 2 obesity in adult Heart palpitations Hypertension Hypokalemia NONE Rheumatoid arthritis (HCC) Seizure-like activity (HCC) SVT (supraventricular tachycardia) (HCC) Traumatic brain injury (HCC) slipped on ice and hit head on concrete and passed out for 2 min in 2009 Past Surgical History PAST SURGICAL HISTORY Procedure Laterality Date ANESTHESIA VAGINAL HYSTERECTOMY INCL BIOPSY 1996 ENDOMETRIOSIS, PAIN , CYSTS BACK SURGERY HX 2014 spinal fusion with screws CARPAL TUNNEL RIGHT WRIST 1996 RIGHT AND LEFT WRIST CONIZATION CERVIX W/WO D&C RPR KNIFE/LASER 1994 DYSPLASIA DILATION & CURETTAGE DX&/THER NONOBSTETRIC Dilation & curettage DILATION & CURETTAGE DX&/THER NONOBSTETRIC Dilation & curettage KNEE SURGERY HX PAST SURGICAL HISTORY OF 1978 REMOVAL OF BENIGN CYST RIGHT NECK Family History FAMILY HISTORY Problem Relation Age of Onset Thyroid Mother Coronary Artery Disease Mother Arthritis Mother Asthma Mother Hypertension Mother Cancer Mother Arrythmias Mother Afib Heart Failure Mother CHF-cause of Stroke Mother Diabetes Mother Cancer Father testicular cancer Heart disease Half-sister Thyroid Brother Hypertension Brother Heart disease Maternal Grandmother Heart disease Maternal Grandfather Cancer Paternal Grandmother bone Breast Cancer Paternal Grandmother Heart disease Paternal Grandfather Mental illness Daughter Multiple Sclerosis Son Schizophrenia Paternal Aunt Social History Social History Tobacco Use Smoking status: Former Packs/day: 0.50 Years: 20.00 Additional pack years: 0.00 Total pack years: 10.00 Types: Cigarettes Quit date: 09/19/2000 Years since quittin.1 Smokeless tobacco: Never Vaping Use Vaping Use: Never used Substance Use Topics Alcohol use: Yes Comment: social Drug use: No Current Medications Current Outpatient Medications Medication Sig hydrOXYchloroQUINE (PLAQUENIL) 200 mg tablet Take two tabs by mouth daily meloxicam (MOBIC) 15 mg tablet Take 1 tablet by mouth once daily. metoprolol tartrate, short acting, (LOPRESSOR) 50 mg tablet Take 25 mg by mouth twice daily. Valsartan-hydroCHLOROthiazide 160-25 mg per tablet Take 1 tablet by mouth once daily. escitalopram oxalate (LEXAPRO) 20 mg tablet Take 20 mg by mouth daily at bedtime. QUEtiapine (SEROQUEL) 25 mg tablet Take 25 mg by mouth at bedtime as needed. Take 1-2 tabs as needed for sleep Ebbxqgjztpyah-Ahciuqmr-Btiqrw (MULTIVITAMIN 50 PLUS) tab Take 1 tablet by mouth once daily. pantoprazole DR (PROTONIX) 40 mg tablet Take 40 mg by mouth once daily. tofacitinib (XELJANZ XR) 11 mg tablet, extended release Take 1 tablet (11 mg) by mouth once daily. multivitamin tablet Take 1 tablet by mouth once daily. ascorbic acid, vitamin C, (VITAMIN C) 500 mg tablet Take 1 tablet by mouth two times a day with meals. No current facility-administered medications for this visit. Last Ophthalmology Check for Plaquenil (Hydroxychloroquine) Last OCT Macula Exam No resulted procedures found. Last Visual Field Exam No resulted procedures found. Labs Latest Ref Rng & Units 08/01/2023 05/26/2023 02/03/2023 11/08/2022 CBC WBC 3.70 - 11.00 k/uL 5.89 5.84 6.03 4.84 Hemoglobin 11.5 - 15.5 g/dL 12.7 12.2 11.9 11.8 Hematocrit 36.0 - 46.0 % 38.9 36.3 35.7 34.8 Platelet Count 150 - 400 k/uL 204 222 235 204 Abs Neut (ANC) 1.45 - 7.50 k/uL 2.89 3.06 1.93 2.23 Abs Lymph 1.00 - 4.00 k/uL 2.21 1.87 3.45 1.73 Latest Ref Rng & Units 08/01/2023 05/26/2023 02/03/2023 11/08/2022 CMP Sodium 136 - 144 mmol/L 138 140 140 Potassium 3.7 - 5.1 mmol/L 4.4 3.8 4.0 Chloride 97 - 105 mmol/L 102 103 103 CO2 22 - 30 mmol/L 25 25 26 Glucose 74 - 99 mg/dL 91 105 99 BUN 7 - 21 mg/dL 21 17 21 Creatinine 0.58 - 0.96 mg/dL 0.75 0.90 0.73 1.15 Calcium 8.5 - 10.2 mg/dL 9.3 9.0 9.2 AST 13 - 35 U/L 18 24 21 22 ALT 7 - 38 U/L 15 21 14 20 Alkaline Phosphatase 34 - 123 U/L 73 61 58 Latest Ref Rng & Units 08/01/2023 05/26/2023 02/03/2023 04/06/2022 ESR, WSR WSR 0 - 20 mm/hr 8 9 5 15 Latest Ref Rng & Units 05/26/2023 07/11/2020 12/21/2002 CRP CRP <0.9 mg/dL 0.7 <0.3 0.9 Latest Ref Rng & Units 12/21/2002 CK CK 30 - 220 U/L 76 Latest Ref Rng & Units 05/26/2023 04/06/2022 Hepatitis Screen Hep B Surface Ag Negative Negative Negative 05/26/2023 04/06/2022 TB Screen TB Interpretation Infection with M. tuberculosis complex is unlikely. If latent tuberculosis infection is highly suspected, a negative result does not rule out the infection. Specimens from immunocompromised patients and those <5 years of age may show false negative results. In case of a contactinvestigation, please repeat 8-12 weeks after a known exposure. Infection with M. tuberculosis complex is unlikely. If latent tuberculosis infection is highly suspected, a negative result does not rule out the infection. Specimens from immunocompromised patients and those <5 years of age may show false negative results. In case of a contact investigation, please repeat 8-12 weeks after a knownexposure. TB Result Negative Negative Latest Ref Rng & Units 01/18/2021 07/11/2020 01/30/2003 Antibodies CHERIE by EIA OD Ratio 0.4 0.6 CHERIE by EIA, Qual Negative Negative Sm Antibody <1.0 AI <0.2 Ribosomal MINE MOTOR OPERATOR <1.0 AI <0.2 Chromatin Antibody <1.0 AI 0.2 SSA Antibody <1.0 AI <0.2 SSB Antibody <1.0 AI <0.2 MINE MOTOR OPERATOR Antibody <1.0 AI <0.2 Scleroderma Ab, IgG <1.0 AI <0.2 Centromere Ab <1.0 AI <0.2 SOHA-1 ANTIBODY, IGG <1.0 AI <0.2 PT Sec 9.7 - 13.0 sec 10.3 PT INR 0.9 - 1.3 1.0 APTT 23.0 - 32.4 sec 24.2 Imaging Last XR Hand/Finger - Impression Only XR HAND GENERAL 3V PA/LAT/OBL RIGHT Exam End: 09/01/2023 10:30 AM (Final result) Impression: *No fracture. Remote deformity consistent with prior trauma in the the ulnar styloid. Scattered distal degenerative changes. No erosions. First carpometacarpal, radiocarpal, and distal radial ulnar joint degenerative changes are present. No malalignment. Electronically signed: Anibal Larsen MD. Last MRI Hand - Impression Only No resulted procedures found. Last XR Chest - Impression Only XR CHEST 1V FRONTAL PORT Exam End: 12/30/2018 12:50 PM (Final result) Impression: IMPRESSION: No infiltrate. ... Last XR Cervical Spine - Impression Only No resulted procedures found. Health Maintenance Current Immunizations Reviewed on 04/06/2022 Name Date COVID-19 vaccine, monovalent (MODERNA) 08/22/2020 , 07/23/2020 pneumococcal (PCV20) vaccine 08/20/2021 Physical Exam GENERAL APPEARANCE: Well groomed. Alert and oriented x 3. In no distress. VITAL SIGNS: BP 138/81 Pulse 64 Ht 5' 10.945 (1.80m) Wt 222 lb 7.1 oz (100.9kg) BMI 31.07 kg/(m^2). SKIN: No rash, thickening, nodules, discoloration. EYES: PERRL, EOMI. No inflammation seen. HENT: External examination and palpation of the ears and nose normal. Lips, teeth, and gums normal.Oropharynx and tongue normal. No lesions or exudate. NECK: No mass or asymmetry. RESPIRATORY: Normal respiratory effort. Clear to auscultation and percussion. CARDIOVASCULAR: Heart RRR without gallop, murmur, or rub. No bruits across chest or neck. EXTREMITIES: Normal and equal pulses in all 4 extremities. No edema. ABDOMEN: BS normal. No bruits, No tenderness, mass, or hepatosplenomegaly. NEUROLOGIC: Sensory exam normal. MUSCULOSKELETAL EXAMINATION: Soft tissue tender points: None Motor exam: Normal 5+/5+ muscle strength. Normal bulk and tone. Cervical spine: No visible abnormalities. Full ROM. No tenderness to palpation. Thoracic spine: No visible abnormalities. No tenderness to palpation. Lumbar spine: No visible abnormalities. Full ROM. No tenderness to palpation. Joint Exam 10/24/2023 Right Left Glenohumeral Tender Tender Wrist Swollen Tender Swollen Tender CMC Swollen Tender Swollen Tender MCP 1 Swollen Tender MCP 2 Swollen Tender Swollen Tender MCP 3 Tender Tender MCP 4 Tender Tender PIP 2 Tender Tender PIP 3 Tender Tender Knee Tender Tender The following joints were examined and normal: Left Sternoclavicular, Right Sternoclavicular, Left Acromioclavicular, Right Acromioclavicular, Left Elbow, Right Elbow, Right MCP 1, Left MCP 5, Right MCP 5, Left IP, Right IP, Left PIP 4, Right PIP4, Left PIP 5, Right PIP 5, Left Ankle, Right Ankle, Left MTP 1, Right MTP 1, Left MTP 2, Right MTP2, Left MTP 3, Right MTP 3, Left MTP 4, Right MTP 4, Left MTP 5, Right MTP 5 Joint Exam Data (across time) 10/24/2023 08/01/2023 05/26/2023 02/03/2023 06/28/2022 Joint Exam Total Tender 17 17 14 4 0 Total Swollen 5 5 3 1 1 Impression Diagnoses: (M05.79) Rheumatoid arthritis involving multiple sites with positive rheumatoid factor (HCC) (primary encounter diagnosis) (Z79.899) High risk medication use (Z86.69) H/O iritis Plan Orders this visit: Office Visit on 10/24/23 tofacitinib (XELJANZ XR) 11 mg tablet, extended release Discussed current status of rheumatoid arthritis as active and not responding to current treatment with hydroxychloroquine 400 mg daily leflunomide 10 mg daily. Furthermore, she is experiencing significant GI problems from the leflunomide and this will be discontinued. She will maintain the hydroxychloroquine and current supply is stable. As we have discussed she has tried and failed Enbrel, Humira and Orencia as biologic options. Rinvoq was effective but caused gastrointestinal upset. I reviewed her treatment options which would include a different Douglas inhibitor such as Xeljanz, interleukin-6 inhibitor such as Actemra/Kevzara or IV rituximab. At present we will proceed with Xeljanz XR 11 mg once daily and I dispensed 90 tablets and 1 refill. We reviewed the side effect profile very comparable to the Rinvoq and she will keep me posted of any gastrointestinal upset. I reviewed her most recent labs which show good stability Xeljanz as planned. She has an upcoming surgery for her right thumb in November 2023 and she will keep me posted on this. Return in about 8 weeks (around 12/19/2023). I spent a total of 32 minutes on the date of the service which included preparing to see the patient, [id number] patient care, completing clinical documentation, obtaining and/or reviewing separately obtained history, performing a medically appropriate examination, counseling and educating the pat ient/family/caregiver, ordering medications, tests, or procedures, independently interpreting results (not separately reported), and communicating results to the patient/family/caregiver. Medical Decision Making: Problems: Moderate: 1+ chronic illnesses with change Data: Unique test result(s) reviewed: 3+ Risk: High: High risk from testing/treatment Medical Decision Making Level: 4 - Moderate Chris No MD Rheumatology Date: October 24, 2023 Time: 11:32 AM [facility] Evaluation + Plan note* Assessment & Plan Note - FLORA Guzman - 09/27/2023 4:01 PM EDT Associated Problem(s): Syncope and collapse She reports an episode of syncope that occurred a number of months ago, and is somewhat difficult historian. States she was standing in a store talking to a friend and felt that her blood sugar was low, the friend assisted her to sit down on a stool and she feels like she may have passed out for a few seconds . She denies any type of prodrome. Afterwards she felt a little sick and nauseated . Denies any type of recurrence Is unclear if she was taking Toprol at the time of event [facility] Work Phone: 1(335) 353-120506-25-2024 Miscellaneous Notes* Assessment & Plan Note - FLORA Guzman - 09/27/2023 4:01 PM EDTAssociated Problem(s): Syncope and collapse She reports an episode of syncope that occurred a number of months ago, and is somewhat difficult historian. States she was standing in a store talking to a friend and felt that her blood sugar was low, the friend assisted her to sit down on a stool and she feels like she may have passed out for a few seconds . She denies any type of prodrome. Afterwards she felt a little sick and nauseated . Denies any type of recurrence Is unclear if she was taking Toprol at the time of event * Assessment & Plan Note - FLORA Guzman - 09/27/2023 4:00 PM EDT Associated Problem(s): Obesity (BMI 35.0-39.9 without comorbidity) Reviewed the merits of healthy lifestyle choices on overall cardiovascular health. * Assessment & Plan Note - FLORA Guzman - 09/27/2023 4:00 PM EDT Associated Problem(s): Essential hypertension She reports her PCP discontinued hydrochlorothiazide. Remains optimal here in the office * Assessment & Plan Note - FLORA Guzman - 09/27/2023 3:59 PM EDT Associated Problem(s): Palpitations 2022 Holter monitor with short runs of atrial tachycardia She was initiated on Toprol 50 mg daily but was unable to tolerate due to dizziness, she has reduced medication to 25 mg and reports significant improvement in palpitations on treatment. documented in this [facility] Work Phone: 1(314) 770-918106-25-2024 Evaluation + Plan note* Assessment & Plan Note - FLORA Guzman - 09/27/2023 4:00 PM EDTAssociated Problem(s): Obesity (BMI 35.0-39.9 without comorbidity) Reviewed the merits of healthy lifestyle choices on overall cardiovascular health. [facility] Work Phone: 1(996) 535-758606-25-2024 Evaluation + Plan note* Assessment & Plan Note - FLORA Guzman - 09/27/2023 4:00 PM EDTAssociated Problem(s): Essential hypertension She reports her PCP discontinued hydrochlorothiazide. Remains optimal here in the office [facility] Work Phone: [phone]) 679-191506-25-2024 Evaluation + Plan note* Assessment & Plan Note - FLORA Guzman - 09/27/2023 3:59 PM EDTAssociated Problem(s): Palpitations 2022 Holter monitor with short runs of atrial tachycardia She was initiated on Toprol 50 mg daily but was unable to tolerate due to dizziness, she has reduced medication to 25 mg and reports significant improvement in palpitations on treatment. T [facility] Work Phone: 1([phone]) 247-111606-24-2024 History of Present illness Narrative* FLORA Guzman - 09/26/2023 2:30 PM EDT Chief Complaint I am doing okay Reason for Visit 6-month follow-up. Patient presents to the office today for outpatient follow-up for tachyarrhythmia. Last evaluated in clinic by Dr. Becerra February 2023. At that time, she had no voiced complaints. Presents today ambulatory with steady gait. Accompanied by granddaughter. She reports routine follow-up with PCP with annual labs. Reports being hospitalized for a hamstring repair, did not see cardiology. History of Present Illness Patient is an extremely pleasant 61-year-old female who presents to the office today with no voicedcardiovascular complaints. She has reduced her dose of Toprol down to 25 mg daily because she felt a little dizzy on the full 50 mg dosage. She continues to report significant benefit in her palpitations. She remains aerobically active where she works 2 days a week, babysits her granddaughter and they like to go swimming. She has recently joined the [employer] [facility]. She denies any type of exertional symptoms. She goes on to report a syncopal episode that occurred a while ago, and is somewhat vague on details. She believes it was due to low blood pressure. From what I can gather, does not seem consistent with arrhythmic etiology. Known normal LVEF. April 2023 calcium score 0. Current daily activity greater than 4 METS without concerning symptoms. February 2023 echocardiogram LVEF 70%, no wall motion abnormality. Cardiovascular risk profile: Optimal treated hypertension Denies diabetes Non-smoker Unknown lipid status Patient reports that overall has no complaint(s) of chest pain, chest pressure/discomfort, claudication, dyspnea, exertional chest pressure/discomfort, fatigue, lower extremity edema, near-syncope, and orthopnea Daily activity: joined the [employer] [facility] and starting exercise program Reports improvement in exercise capacity or functional tolerance since last office visit. Review of Systems Cardiovascular: Negative for chest pain, dyspnea on exertion, irregular heartbeat, leg swelling, near-syncope, orthopnea, palpitations, paroxysmal nocturnal dyspnea and syncope. Visit Vitals BP 122/78 (BP Location: Right arm, Patient Position: Sitting) Pulse 66 Ht 1.702 m (5' 7 ) Wt 103 kg (226 lb) BMI 35.40 kg/m Smoking Status Former BSA 2.21 m Physical Exam Vitals and nursing note reviewed. HENT: Head: Normocephalic. Cardiovascular: Rate and Rhythm: Normal rate and regular rhythm. Heart sounds: Normal heart sounds. Pulmonary: Effort: Pulmonary effort is normal. Breath sounds: Normal breath sounds. Abdominal: Palpations: Abdomen is soft. Musculoskeletal: Right lower leg: No edema. Left lower leg: No edema. Skin: General: Skin is warm and dry. Neurological: General: No focal deficit present. Mental Status: She is alert. Psychiatric: Mood and Affect: Mood normal. Behavior: Behavior normal. No Known Allergies Current Outpatient Medications Medication Instructions cyclobenzaprine (FLEXERIL) 10 mg, oral, Nightly PRN escitalopram (LEXAPRO) 20 mg, oral hydroxychloroquine (Plaquenil) 200 mg tablet 1 tablet, oral, 2 times daily leflunomide (ARAVA) 10 mg, oral, Daily meloxicam (MOBIC) 15 mg, oral, Daily metoprolol succinate XL (TOPROL-XL) 25 mg, oral, Daily, Do not crush or chew. mirabegron (MYRBETRIQ) 50 mg, oral, Daily pantoprazole (PROTONIX) 40 mg, oral, 2 times daily before meals potassium chloride CR 20 mEq ER tablet 20 mEq, oral, 2 times daily QUEtiapine (SEROQUEL) 25 mg, oral, As needed Rinvoq 15 mg, oral valsartan (DIOVAN) 80 mg, oral, Daily Assessment: Palpitations 2022 Holter monitor with short runs of atrial tachycardia She was initiated on Toprol 50 mg daily but was unable to tolerate due to dizziness, she has reduced medication to 25 mg and reports significant improvement in palpitations on treatment. Essential hypertension She reports her PCP discontinued hydrochlorothiazide. Remains optimal here in the office Obesity (BMI 35.0-39.9 without comorbidity) Reviewed the merits of healthy lifestyle choices on overall cardiovascular health. Syncope and collapse She reports an episode of syncope that occurred a number of months ago, and is somewhat difficult historian. States she was standing in a store talking to a friend and felt that her blood sugar was low, the friend assisted her to sit down on a stool and she feels like she may have passed out for a few seconds . She denies any type of prodrome. Afterwards she felt a little sick and nauseated . Denies any type of recurrence Is unclear if she was taking Toprol at the time of event Plan: Through informed decision making process incorporating patients unique circumstances, the followingtreatment plan will be initiated: 1. Prescription drug management of cardiovascular medication for efficacy, adherence to treatment, side effect assessment and polypharmacy. Current treatment clinically warranted and to continue without modifications. 2. Return for follow-up; in the interim, contact the office if new symptoms arise. Dr. Becerra 6 months Discussed the dynamic nature of coronary artery disease and the importance of seeking medical attention if new symptoms arise. Sarabjit Phillips MSN, PERMANENT WAVER-[employer]ICULATION OFFICER, PMHNP-[facility] Please excuse any errors in grammar or translation related to this dictation. Voice recognition software was utilized to prepare this document. [facility] Work Phone: [phone]) 393-685306-24-2024 Instructions* Patient Instructions* FLORA Guzman - 09/26/2023 2:30 PM EDT Please bring all medicines, vitamins, and herbal supplements with you when you come to the office. Prescriptions will not be filled unless you are compliant with your follow up appointments or have a follow up appointment scheduled as per instruction of your physician. Refills should be requested at the time of your visit. PLAN: Through informed decision making process incorporating patients unique circumstances, the followingtreatment plan will be initiated: 1. Prescription drug management of cardiovascular medication for efficacy, adherence to treatment, side effect assessment and polypharmacy. Current treatment clinically warranted and to continue without modifications. 2. Return for follow-up; in the interim, contact the office if new symptoms arise. Dr. Becerra 6 months [facility] Work Phone: [phone]) 319-592804-29-2024 History of Present illness Narrative* Chris No MD - 08/01/2023 9:45 AM EDT Images from the original note were not included. Rheumatology Outpatient Clinic Date of Service: 08/01/2023 Patient: Caty Hills Medical Record: [id number] Primary Care Physician: Anibal Juan, , DO Last Rheumatology visit: 05/26/2023 (with Chris No) History of Present Illness Caty Hills is a 63 year old White female who presents on 08/01/2023 for an in-person visit for evaluation of Rheumatoid Arthritis. She is currently taking abatacept, hydroxychloroquine sulfate, leflunomide, meloxicam. Her most recent CHERIE was negative (07/11/2020). HISTORY OF PRESENT ILLNESS This patient is known to me from my previous practice with [facility] with diagnosis of rheumatoid arthritis. This patient has been on DMARD therapy in the past with methotrexate and has not tolerated it well. She had been on a sequence of Biologics and when last seen in May 2021 wason Rinvoq 15 mg daily and doing well. Then in June 2021 that she developed a bout of iritis. She was being seen by a different real estate specialist with [facility] and switch her off of Rinvoq and placed her on Humira for the iritis. The patient has tolerated the Humira and it is improved her iritis. She has not needed to be on topical steroid treatment for her eyes in several months now. She does get some breakthrough discomfort in her eyes but no full-blown iritis. Where is a bigger problem is off of the Rinvoq she is had escalation of rheumatoid arthritis activity in her hands, wrists, shoulders, right knee and toes despite being on the Humira. Her other real estate specialist is even attempted to place methotrexate in combination with the Humira and this did not improve her rheumatoid arthritis and she felt ill on the methotrexate and has discontinued it. She was inquiring as to whether or not she would be allowed to go back onto the Rinvoq. Aside from the iritis she has not experienced any other extra- articular manifestations of rheumatoid arthritis. She shares with me that she had her right knee replaced 3 months ago and it is not doing as well as the left knee did from 2-1/2 years ago. The right knee remains quite swollen and painful and she believes the rheumatoid arthritismay be contributing to the right knee pain. INTERVAL HISTORY Patient returns for reevaluation and management of her rheumatoid arthritis. Since last visit patient has switched to Orencia 125 mg subcutaneously once each week. She does not feel this is providingany benefit at this point although she has administered just 6 doses. With the last dose she thinksshe was getting hives. She expresses disappointment and frustration with the last few medications and was inquiring about going onto hydroxychloroquine plus an additional DMARD instead. Presently there is a fair amount of breakthrough swelling, stiffness and pain in the fingers, wrists, shoulders, knees and feet. She also notes that she has a fair amount of leg pain and has resumed some old gabapentin and this seemed to provide relief for her legs which she thinks the leg pain is emanating fromthe back. There are no new extra-articular manifestations of rheumatoid arthritis. Her general health has been unchanged from last visit. Rheum/Ortho Arthrocentesis Injections (last 5) 03/02/2023 12:44 Injection History Location thumb Thumb Site R thumb CMC Patient-Entered Data PAIN EVALUATION 07/31/2023 1504 08/01/2023 0930 Pain Level: 6 6 Pain Location: Arm-Right Generalized Description: Aching;Burning;Itching;Numbness;Radiating;Shooting;Spasm Burning;Aching;Sharp;Shooting;Numbness;Tightness;Stiffness Duration Amount of Time: 8 -- Duration Units: Weeks -- Frequency: Continuous Continuous Intervention/Comfort measure: Medication;Positioning -- Comments: It has worsened with new meds -- PROMIS Assessments 07/31/2023 PROMIS Assessments Physical Health Percentile 10 Mental Health Percentile 26 Pain Score 3 Pain Interference Percentile 4 Fatigue Percentile 10 Physical Function Percentile 7 RAPID 3 [place] Activities of Daily Living 07/31/2023 3:09 PM Dress self? With SOME difficulty Get in and out of bed? With SOME difficulty Walk outdoors? With SOME difficulty Wash and dry body? Without ANY difficulty Get in and out of car? With SOME difficulty RAPID 3 Disease Activity Weighed Score Levels: 0 - 1: Near Remission 1.3 - 2.0: Low Severity 2.3 - 4.0: Moderate Severity 4.3 - 10.0: High Severity 07/31/2023 RAPID-3 Weighed Score RAPID 3 Weighed Score 4.83 (High Severity (HS)) Review of Systems Review of Systems CONSTITUTION: Negative for: Fever and Recent weight change HEENT: Positive for: Dry mouth Negative for: Nosebleeds, Mouth sores and Trouble swallowing RESPIRATORY: Negative for: Cough, Shortness of breath, Pain with breathing, Coughing up blood GASTROINTESTINAL: Positive for: Abdominal pain Negative for: Melena, Diarrhea and Heartburn MUSCULOSKELETAL: Positive for: Arthralgias, Myalgias, Muscle weakness, Joint swelling and Morning Joint Stiffness NEUROLOGICAL: Positive for: Headaches and Memory loss Negative for: Numbness SKIN: Positive for: Rash, Sun Sensitive Rash and Nail changes Negative for: Skin changes and Hair loss EYES: Positive for: Eye dryness Negative for: Eye pain, Eye redness and visual disturbance CARDIOVASCULAR: Positive for: Leg swelling Negative for: Chest pain GENITOURINARY: Negative for: Dysuria and Hematuria HEMATOLOGIC/LYMPHATIC: Negative for: Swollen glands All other reviewed and negative other than HPI. Past Medical History PAST MEDICAL HISTORY Diagnosis Date Anxiety Class 2 obesity in adult Heart palpitations Hypertension Hypokalemia NONE Rheumatoid arthritis (HCC) Seizure-like activity (HCC) SVT (supraventricular tachycardia) (HCC) Traumatic brain injury (HCC) slipped on ice and hit head on concrete and passed out for 2 min in 2009 Past Surgical History PAST SURGICAL HISTORY Procedure Laterality Date ANESTHESIA VAGINAL HYSTERECTOMY INCL BIOPSY 1996 ENDOMETRIOSIS, PAIN , CYSTS BACK SURGERY HX 2014 spinal fusion with screws CARPAL TUNNEL RIGHT WRIST 1996 RIGHT AND LEFT WRIST CONIZATION CERVIX W/WO D&C RPR KNIFE/LASER 1994 DYSPLASIA DILATION & CURETTAGE DX&/THER NONOBSTETRIC Dilation & curettage DILATION & CURETTAGE DX&/THER NONOBSTETRIC Dilation & curettage KNEE SURGERY HX PAST SURGICAL HISTORY OF 1978 REMOVAL OF BENIGN CYST RIGHT NECK Family History FAMILY HISTORY Problem Relation Age of Onset Thyroid Mother Coronary Artery Disease Mother Arthritis Mother Asthma Mother Hypertension Mother Cancer Mother Arrythmias Mother Afib Heart Failure Mother CHF-cause of Stroke Mother Diabetes Mother Cancer Father testicular cancer Heart disease Half-sister Thyroid Brother Hypertension Brother Heart disease Maternal Grandmother Heart disease Maternal Grandfather Cancer Paternal Grandmother bone Breast Cancer Paternal Grandmother Heart disease Paternal Grandfather Mental illness Daughter Multiple Sclerosis Son Schizophrenia Paternal Aunt Social History Social History Tobacco Use Smoking status: Former Packs/day: 0.50 Years: 20.00 Additional pack years: 0.00 Total pack years: 10.00 Types: Cigarettes Quit date: 09/19/2000 Years since quittin.8 Smokeless tobacco: Never Vaping Use Vaping Use: Never used Substance Use Topics Alcohol use: Yes Comment: social Drug use: No Current Medications Current Outpatient Medications Medication Sig metoprolol tartrate, short acting, (LOPRESSOR) 50 mg tablet Take 25 mg by mouth twice daily. potassium chloride 20 mEq TbER Take 20 mEq by mouth once daily. Valsartan-hydroCHLOROthiazide 160-25 mg per tablet Take 1 tablet by mouth once daily. escitalopram oxalate (LEXAPRO) 20 mg tablet Take 20 mg by mouth daily at bedtime. QUEtiapine (SEROQUEL) 25 mg tablet Take 25 mg by mouth at bedtime as needed. Take 1-2 tabs as needed for sleep Ezoqznxdojwqh-Uvbprhqa-Npvtdh (MULTIVITAMIN 50 PLUS) tab Take 1 tablet by mouth once daily. pantoprazole DR (PROTONIX) 40 mg tablet Take 40 mg by mouth once daily. hydrOXYchloroQUINE (PLAQUENIL) 200 mg tablet Take two tabs by mouth daily gabapentin (NEURONTIN) 600 mg tablet Take 1 tablet by mouth two times a day for 180 days. leflunomide (ARAVA) 10 mg tablet Take 1tab daily by mouth with food. No alcohol. Hold if on antibiotics or ill. meloxicam (MOBIC) 15 mg tablet Take 1 tablet by mouth once daily. docusate sodium (COLACE) 100 mg capsule Take 1 capsule by mouth two times a day as needed for constipation. multivitamin tablet Take 1 tablet by mouth once daily. ascorbic acid, vitamin C, (VITAMIN C) 500 mg tablet Take 1 tablet by mouth two times a day with meals. No current facility-administered medications for this visit. Labs Latest Ref Rng & Units 05/26/2023 02/03/2023 11/08/2022 04/06/2022 CBC WBC 3.70 - 11.00 k/uL 5.84 6.03 4.84 9.14 Hemoglobin 11.5 - 15.5 g/dL 12.2 11.9 11.8 13.5 Hematocrit 36.0 - 46.0 % 36.3 35.7 34.8 40.6 Platelet Count 150 - 400 k/uL 222 235 204 266 Abs Neut (ANC) 1.45 - 7.50 k/uL 3.06 1.93 2.23 4.46 Abs Lymph 1.00 - 4.00 k/uL 1.87 3.45 1.73 3.72 Latest Ref Rng & Units 05/26/2023 02/03/2023 11/08/2022 04/06/2022 CMP Sodium 136 - 144 mmol/L 140 140 Potassium 3.7 - 5.1 mmol/L 3.8 4.0 Chloride 97 - 105 mmol/L 103 103 CO2 22 - 30 mmol/L 25 26 Glucose 74 - 99 mg/dL 105 99 BUN 7 - 21 mg/dL 17 21 Creatinine 0.58 - 0.96 mg/dL 0.90 0.73 1.15 0.75 Calcium 8.5 - 10.2 mg/dL 9.0 9.2 AST 13 - 35 U/L 24 21 22 21 ALT 7 - 38 U/L 21 14 20 24 Alkaline Phosphatase 34 - 123 U/L 61 58 Latest Ref Rng & Units 05/26/2023 02/03/2023 04/06/2022 07/11/2020 ESR, WSR WSR 0 - 20 mm/hr 9 5 15 7 Latest Ref Rng & Units 05/26/2023 07/11/2020 12/21/2002 CRP CRP <0.9 mg/dL 0.7 <0.3 0.9 Latest Ref Rng & Units 12/21/2002 CK CK 30 - 220 U/L 76 Latest Ref Rng & Units 05/26/2023 04/06/2022 Hepatitis Screen Hep B Surface Ag Negative Negative Negative 05/26/2023 04/06/2022 TB Screen TB Interpretation Infection with M. tuberculosis complex is unlikely. If latent tuberculosis infection is highly suspected, a negative result does not rule out the infection. Specimens from immunocompromised patients and those <5 years of age may show false negative results. In case of a contactinvestigation, please repeat 8-12 weeks after a known exposure. Infection with M. tuberculosis complex is unlikely. If latent tuberculosis infection is highly suspected, a negative result does not rule out the infection. Specimens from immunocompromised patients and those <5 years of age may show false negative results. In case of a contact investigation, please repeat 8-12 weeks after a knownexposure. TB Result Negative Negative Latest Ref Rng & Units 01/18/2021 07/11/2020 01/30/2003 Antibodies CHERIE by EIA OD Ratio 0.4 0.6 CHERIE by EIA, Qual Negative Negative Sm Antibody <1.0 AI <0.2 Ribosomal MINE MOTOR OPERATOR <1.0 AI <0.2 Chromatin Antibody <1.0 AI 0.2 SSA Antibody <1.0 AI <0.2 SSB Antibody <1.0 AI <0.2 MINE MOTOR OPERATOR Antibody <1.0 AI <0.2 Scleroderma Ab, IgG <1.0 AI <0.2 Centromere Ab <1.0 AI <0.2 SOHA-1 ANTIBODY, IGG <1.0 AI <0.2 PT Sec 9.7 - 13.0 sec 10.3 PT INR 0.9 - 1.3 1.0 APTT 23.0 - 32.4 sec 24.2 Imaging Last XR Hand/Finger - Impression Only XR HAND GENERAL 3V PA/LAT/OBL BILATERAL Exam End: 02/03/2023 12:30 PM (Final result) Impression: IMPRESSION: No evidence of erosions. Osteoarthritis. 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 Last MRI Hand - Impression Only No resulted procedures found. Last XR Chest - Impression Only XR CHEST 1V FRONTAL PORT Exam End: 12/30/2018 12:50 PM (Final result) Impression: IMPRESSION: No infiltrate. ... Last XR Cervical Spine - Impression Only No resulted procedures found. Health Maintenance Current Immunizations Reviewed on 04/06/2022 Name Date COVID-19 vaccine, monovalent (MODERNA) 08/22/2020 , 07/23/2020 pneumococcal (PCV20) vaccine 08/20/2021 Physical Exam GENERAL APPEARANCE: Well groomed. Alert and oriented x 3. In no distress. VITAL SIGNS: BP 128/79 Pulse 72 Wt 232 lb 5.8 oz (105.4kg) SKIN: No rash, thickening, nodules, discoloration. EYES: PERRL, EOMI. No inflammation seen. HENT: External examination and palpation of the ears and nose normal. Lips, teeth, and gums normal.Oropharynx and tongue normal. No lesions or exudate. NECK: No mass or asymmetry. RESPIRATORY: Normal respiratory effort. Clear to auscultation and percussion. CARDIOVASCULAR: Heart RRR without gallop, murmur, or rub. No bruits across chest or neck. EXTREMITIES: Normal and equal pulses in all 4 extremities. No edema. ABDOMEN: BS normal. No bruits, No tenderness, mass, or hepatosplenomegaly. NEUROLOGIC: Sensory exam normal. MUSCULOSKELETAL EXAMINATION: Soft tissue tender points: None Motor exam: Normal 5+/5+ muscle strength. Normal bulk and tone. Cervical spine: No visible abnormalities. Full ROM. No tenderness to palpation. Thoracic spine: No visible abnormalities. No tenderness to palpation. Lumbar spine: No visible abnormalities. Full ROM. No tenderness to palpation. Joint Exam 08/01/2023 Right Left Glenohumeral Tender Tender Wrist Swollen Tender Swollen Tender CMC Swollen Tender Swollen Tender MCP 1 Swollen Tender MCP 2 Swollen Tender Swollen Tender MCP 3 Tender Tender MCP 4 Tender Tender PIP 2 Tender Tender PIP 3 Tender Tender Knee Tender Tender The following joints were examined and normal: Left Sternoclavicular, Right Sternoclavicular, Left Acromioclavicular, Right Acromioclavicular, Left Elbow, Right Elbow, Right MCP 1, Left MCP 5, Right MCP 5, Left IP, Right IP, Left PIP 4, Right PIP4, Left PIP 5, Right PIP 5, Left Ankle, Right Ankle, Left MTP 1, Right MTP 1, Left MTP 2, Right MTP2, Left MTP 3, Right MTP 3, Left MTP 4, Right MTP 4, Left MTP 5, Right MTP 5 Joint Exam Data (across time) 08/01/2023 05/26/2023 02/03/2023 06/28/2022 04/06/2022 Joint Exam Total Tender 17 14 4 0 11 Total Swollen 5 3 1 1 2 Impression Diagnoses: (M05.79) Rheumatoid arthritis involving multiple sites with positive rheumatoid factor (HCC) (primary encounter diagnosis) (Z79.899) High risk medication use (Z86.69) H/O iritis Plan Orders this visit: Office Visit on 08/01/23 COMPLETE BLOOD COUNT AND DIFFERENTIAL COMPREHENSIVE METABOLIC PANEL SEDIMENTATION RATE, WESTERGREN hydrOXYchloroQUINE (PLAQUENIL) 200 mg tablet gabapentin (NEURONTIN) 600 mg tablet leflunomide (ARAVA) 10 mg tablet meloxicam (MOBIC) 15 mg tablet Discussed current status of rheumatoid arthritis as active and not responding to her Orencia subcutaneously. Patient would prefer to come off Orencia at this time. She feels she is losing ground and would like to switch therapies. Orencia will be discontinued and she will initiate hydroxychloroquine 400 mg daily leflunomide 10 mg daily. Patient has good experience with hydroxychloroquine in the past and understands the need for an annual eye exam. I discussed the leflunomide as a new DMARD as she did not tolerate methotrexate in the past. I discussed the side effects of leflunomide in some detail. I we will assess baseline labs that she switches off Orencia going to leflunomide. Both the lef lunomide and hydroxychloroquine refilled for 90 days and 1 refill. The patient inquired about some type of pain reliever and we will go forward with meloxicam 15 mg daily I dispensed a 90-day supply and 1 refill. She can continue with the gabapentin and will need a new prescription of 600 mg twice daily gabapentin. I dispensed the 90-day supply and 1 refill. Return in about 10 weeks (around 10/10/2023). I spent a total of 35 minutes on the date of the service which included preparing to see the patient, [id number]-[id number] patient care, completing clinical documentation, obtaining and/or reviewing separately obtained history, performing a medically appropriate examination, counseling and educating the pat ient/family/caregiver, ordering medications, tests, or procedures, independently interpreting results (not separately reported), and communicating results to the patient/family/caregiver. Medical Decision Making: Problems: Moderate: 1+ chronic illnesses with change Data: Unique test result(s) reviewed: 3+ Unique test(s) ordered: 3+ Risk: High: High risk from testing/treatment Medical Decision Making Level: 4 - Moderate Chris No MD Rheumatology Date: August 01, 2023 Time: 9:45 AM documented in this encounterJoint [facility] Miscellaneous Notes* Telephone Encounter - Alexandra Henderson LPN - 06/17/2023 12:04 PM EDT Prior authorization for Orencia initiated by [facility]. Pharmacy did not provide needed information for PA. Re-initiated PA on Cover My Meds. Pending. documented in this encounterJoint [facility]02-28-2024 Miscellaneous Notes* Telephone Encounter - Alexandra Henderson LPN - 06/01/2023 11:51 AM EST Called Rx in to pharmacy. documented in this encounterJoint [facility]02-22-2024 Nurse Note* Yuniel Gonsales LPN - 05/26/2023 2:25 PM EST Verified 80mg Depo medrol w/ Analilia Moctezuma. Order present in JUN. documented in this encounterJoint [facility]02-22-2024 History of Present illness Narrative* Chris No MD - 05/26/2023 2:00 PM EST Images from the original note were not included. Rheumatology Outpatient Clinic Date of Service: 05/26/2023 Patient: Caty Hills Medical Record: [id number] Primary Care Physician: Anibal Juan, DO, DO Last Rheumatology visit: 02/03/2023 (with Chris No) History of Present Illness Caty Hills is a 63 year old White female who presents on 05/26/2023 for an in-person visit for evaluation of Rheumatoid Arthritis. She is currently taking abatacept, hydroxychloroquine sulfate, methylprednisolone acetate, upadacitinib. Her most recent CHERIE was negative (07/11/2020). HISTORY OF PRESENT ILLNESS This patient is known to me from my previous practice with [facility] with diagnosis of rheumatoid arthritis. This patient has been on DMARD therapy in the past with methotrexate and has not tolerated it well. She had been on a sequence of Biologics and when last seen in May 2021 wason Rinvoq 15 mg daily and doing well. Then in June 2021 that she developed a bout of iritis. She was being seen by a different real estate specialist with [facility] and switch her off of Rinvoq and placed her on Humira for the iritis. The patient has tolerated the Humira and it is improved her iritis. She has not needed to be on topical steroid treatment for her eyes in several months now. She does get some breakthrough discomfort in her eyes but no full-blown iritis. Where is a bigger problem is off of the Rinvoq she is had escalation of rheumatoid arthritis activity in her hands, wrists, shoulders, right knee and toes despite being on the Humira. Her other real estate specialist is even attempted to place methotrexate in combination with the Humira and this did not improve her rheumatoid arthritis and she felt ill on the methotrexate and has discontinued it. She was inquiring as to whether or not she would be allowed to go back onto the Rinvoq. Aside from the iritis she has not experienced any other extra- articular manifestations of rheumatoid arthritis. She shares with me that she had her right knee replaced 3 months ago and it is not doing as well as the left knee did from 2-1/2 years ago. The right knee remains quite swollen and painful and she believes the rheumatoid arthritismay be contributing to the right knee pain. INTERVAL HISTORY Patient returns for reevaluation and management of her rheumatoid arthritis. Up until recently the patient has been taking Rinvoq 15 mg orally once each day in combination with hydroxychloroquine 400mg daily. She feels that the Rinvoq is lost its effectiveness and she is experiencing a good deal of gastrointestinal upset and feels flulike. She stopped the Rinvoq approximately 4 days ago and is starting to feel much better. However her arthritis is escalating fair amount of shoulder, elbow, hand and finger pain has been active. Her lower extremities have been aching more than usual. She has been placed on a brace/splint for her right hand and this seems to alleviate some of her wrist and thumb pain. She has not developed any other new arthritis symptoms otherwise. There are no new extra-articular manifestations of the rheumatoid arthritis. Her general health has been stable. Rheum/Ortho Arthrocentesis Injections (last 5) Some values may be hidden. Unless noted otherwise, only the newest values recorded on each date aredisplayed. Injection History 03/02/23 Location thumb Thumb Site R thumb CMC Patient-Entered Data PAIN EVALUATION No data found in the last 1 encounters. PROMIS Assessments RAPID 3 Clancy Activities of Daily Living No Data Dress self? - Get in and out of bed? - Walk outdoors? - Wash and dry body? - Get in and out of car? - RAPID 3 Disease Activity Weighed Score Levels: 0 - 1: Near Remission 1.3 - 2.0: Low Severity 2.3 - 4.0: Moderate Severity 4.3 - 10.0: High Severity Review of Systems Review of Systems CONSTITUTION: Negative for: Weight loss or gain, Fever. Chills, Night sweats HEENT: Negative for: Nosebleeds, Mouth sores, Trouble swallowing, Dry mouth RESPIRATORY: Negative for: Cough, Shortness of breath, Pain with breathing, Coughing up blood GASTROINTESTINAL: Negative for: Melena, Diarrhea, Abdominal pain, Heartburn, MUSCULOSKELETAL: Positive for: Arthralgias, Myalgias, Joint swelling and Morning Joint Stiffness Negative for: Muscle weakness NEUROLOGICAL: Negative for: Headaches, Numbness, Memory loss, SKIN: Negative for: Rashes, Sun sensitive rashes, Skin color changes, Hair loss, Nail changes EYES: Negative for: Eye pain, Eye redness, Visual disturbance, Eye dryness CARDIOVASCULAR: Negative for: Chest pain, Leg swelling, Arrhythmia, Presyncope GENITOURINARY: Negative for: Dysuria, Hematuria, Ulceration HEMATOLOGIC/LYMPHATIC: Negative for: Swollen glands All other reviewed and negative other than HPI. Past Medical History PAST MEDICAL HISTORY Diagnosis Date Anxiety Class 2 obesity in adult Heart palpitations Hypertension Hypokalemia NONE Rheumatoid arthritis (HCC) Seizure-like activity (HCC) SVT (supraventricular tachycardia) Traumatic brain injury (HCC) slipped on ice and hit head on concrete and passed out for 2 min in 2009 Past Surgical History PAST SURGICAL HISTORY Procedure Laterality Date ANESTHESIA VAGINAL HYSTERECTOMY INCL BIOPSY 1996 ENDOMETRIOSIS, PAIN , CYSTS BACK SURGERY HX 2013 spinal fusion with screws CARPAL TUNNEL RIGHT WRIST 1996 RIGHT AND LEFT WRIST CONIZATION CERVIX W/WO D&C RPR KNIFE/LASER 1994 DYSPLASIA DILATION & CURETTAGE DX&/THER NONOBSTETRIC Dilation & curettage DILATION & CURETTAGE DX&/THER NONOBSTETRIC Dilation & curettage KNEE SURGERY HX PAST SURGICAL HISTORY OF 1978 REMOVAL OF BENIGN CYST RIGHT NECK Family History FAMILY HISTORY Problem Relation Age of Onset Thyroid Mother Coronary Artery Disease Mother Arthritis Mother Asthma Mother Hypertension Mother Cancer Mother Arrythmias Mother Afib Heart Failure Mother CHF-cause of Stroke Mother Diabetes Mother Cancer Father testicular cancer Heart disease Half-sister Thyroid Brother Hypertension Brother Heart disease Maternal Grandmother Heart disease Maternal Grandfather Cancer Paternal Grandmother bone Breast Cancer Paternal Grandmother Heart disease Paternal Grandfather Mental illness Daughter Multiple Sclerosis Son Schizophrenia Paternal Aunt Social History Social History Tobacco Use Smoking status: Former Packs/day: 0.50 Years: 20.00 Additional pack years: 0.00 Total pack years: 10.00 Types: Cigarettes Quit date: 09/19/2000 Years since quittin.6 Smokeless tobacco: Never Vaping Use Vaping Use: Never used Substance Use Topics Alcohol use: Yes Comment: social Drug use: No Current Medications Current Outpatient Medications Medication Sig metoprolol tartrate, short acting, (LOPRESSOR) 50 mg tablet Take 25 mg by mouth twice daily. potassium chloride 20 mEq TbER Take 20 mEq by mouth once daily. docusate sodium (COLACE) 100 mg capsule Take 1 capsule by mouth two times a day as needed for constipation. multivitamin tablet Take 1 tablet by mouth once daily. ascorbic acid, vitamin C, (VITAMIN C) 500 mg tablet Take 1 tablet by mouth two times a day with meals. hydrOXYchloroQUINE (PLAQUENIL) 200 mg tablet Take 1 tablet by mouth twice daily. Valsartan-hydroCHLOROthiazide 160-25 mg per tablet Take 1 tablet by mouth once daily. escitalopram oxalate (LEXAPRO) 20 mg tablet Take 20 mg by mouth daily at bedtime. QUEtiapine (SEROQUEL) 25 mg tablet Take 25 mg by mouth at bedtime as needed. Take 1-2 tabs as needed for sleep plecanatide (TRULANCE) 3 mg tablet Take 3 mg by mouth daily at bedtime. Skwuernxfepmz-Jrraedef-Rpwvje (MULTIVITAMIN 50 PLUS) tab Take 1 tablet by mouth once daily. pantoprazole DR (PROTONIX) 40 mg tablet Take 40 mg by mouth once daily. abatacept (ORENCIA CLICKJECT) 125 mg/mL auto-injector Inject 1 mL subcutaneously one time a week. Current Facility-Administered Medications Medication Dose Route Frequency methylPREDNISolone acetate 80 mg injection (DEPO-Medrol) 80 mg INTRAMUSCULAR ONCE Last Ophthalmology Check for Plaquenil (Hydroxychloroquine) Last OCT Macula Exam No resulted procedures found. Last Visual Field Exam No resulted procedures found. Labs CBC Latest Ref Rng & Units 02/03/2023 11/08/2022 04/06/2022 01/18/2021 WBC 3.70 - 11.00 k/uL 6.03 4.84 9.14 4.34 HEMOGLOBIN 11.5 - 15.5 g/dL 11.9 11.8 13.5 12.1 HEMATOCRIT 36.0 - 46.0 % 35.7(L) 34.8(L) 40.6 35.9(L) PLATELETS 150 - 400 k/uL 235 204 266 178 ABS NEUT (ANC) 1.45 - 7.50 k/uL 1.93 2.23 4.46 0.83(L) ABS LYM 1.0 - 4.0 k/uL - - - - ABS LYMPH 1.00 - 4.00 k/uL 3.45 1.73 3.72 2.53 CMP Latest Ref Rng & Units 02/03/2023 11/08/2022 04/06/2022 01/20/2021 SODIUM 136 - 144 mmol/L - 140 - 136 POTASSIUM 3.7 - 5.1 mmol/L - 4.0 - 4.1 CHLORIDE 97 - 105 mmol/L - 103 - 99 CO2 22 - 30 mmol/L - 26 - 24 GLUCOSE 74 - 99 mg/dL - 99 - 94 BUN 7 - 21 mg/dL - 21 - 19 CREATININE 0.58 - 0.96 mg/dL 0.73 1.15(H) 0.75 0.78 CALCIUM, TOTAL 8.5 - 10.2 mg/dL - 9.2 - 9.4 AST 13 - 35 U/L 21 22 21 - ALT 7 - 38 U/L 14 20 24 - ALKALINE PHOSPHATASE 34 - 123 U/L - 58 - - ESR, WSR Latest Ref Rng & Units 02/03/2023 04/06/2022 07/11/2020 12/21/2002 WSR 0 - 20 mm/hr 5 15 7 16 CRP Latest Ref Rng & Units 07/11/2020 12/21/2002 CRP <0.9 mg/dL <0.3 0.9 CK Latest Ref Rng & Units 12/21/2002 CK 30 - 220 U/L 76 Hepatitis Screen Latest Ref Rng & Units 04/06/2022 HBSAG Negative Negative TB Screen 04/06/2022 TBGINT Infection with M. tuberculosis complex is unlikely. If latent tuberculosis infection is highly suspected, a negative result does not rule out the infection. Specimens from immunocompromised patients and those <5 years of age may show false negative results. In case of a contact investigation, please repeat 8-12 weeks after a known exposure. TBGRES Negative Antibodies Latest Ref Rng & Units 01/18/2021 07/11/2020 01/30/2003 CHERIE BY EIA OD Ratio - 0.4 0.6 CHERIE BY EIA, QUAL Negative - Negative - SM ANTIBODY <1.0 AI - <0.2 - RIBOSOMAL MINE MOTOR OPERATOR <1.0 AI - <0.2 - CHROMATIN ANTIBODY <1.0 AI - 0.2 - SSA ANTIBODY <1.0 AI - <0.2 - SSB ANTIBODY <1.0 AI - <0.2 - MINE MOTOR OPERATOR ANTIBODY <1.0 AI - <0.2 - SCLERODERMA AB, IGG <1.0 AI - <0.2 - CENTROMERE AB <1.0 AI - <0.2 - SOHA-1 ANTIBODY, IGG <1.0 AI - <0.2 - PT SEC 9.7 - 13.0 sec 10.3 - - PT INR 0.9 - 1.3 1.0 - - PTT 23.0 - 32.4 sec 24.2 - - Imaging Last XR Hand/Finger - Impression Only XR HAND GENERAL 3V PA/LAT/OBL BILATERAL Exam End: 02/03/2023 12:30 PM (Final result) Impression: IMPRESSION: No evidence of erosions. Osteoarthritis. 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 Last MRI Hand - Impression Only No resulted procedures found. Last XR Chest - Impression Only XR CHEST 1V FRONTAL PORT Exam End: 12/30/2018 12:50 PM (Final result) Impression: IMPRESSION: No infiltrate. ... Last XR Cervical Spine - Impression Only No resulted procedures found. Health Maintenance Current Immunizations Reviewed on 04/06/2022 Name Date COVID-19 vaccine, monovalent (MODERNA) 08/22/2020 , 07/23/2020 pneumococcal (PCV20) vaccine 08/20/2021 Physical Exam GENERAL APPEARANCE: Well groomed. Alert and oriented x 3. In no distress. VITAL SIGNS: BP 130/65 Pulse 81 Wt 233 lb (105.7kg) SKIN: No rash, thickening, nodules, discoloration. EYES: PERRL, EOMI. No inflammation seen. HENT: External examination and palpation of the ears and nose normal. Lips, teeth, and gums normal.Oropharynx and tongue normal. No lesions or exudate. NECK: No mass or asymmetry. RESPIRATORY: Normal respiratory effort. Clear to auscultation and percussion. CARDIOVASCULAR: Heart RRR without gallop, murmur, or rub. No bruits across chest or neck. EXTREMITIES: Normal and equal pulses in all 4 extremities. No edema. ABDOMEN: BS normal. No bruits, No tenderness, mass, or hepatosplenomegaly. NEUROLOGIC: Sensory exam normal. MUSCULOSKELETAL EXAMINATION: Soft tissue tender points: None Motor exam: Normal 5+/5+ muscle strength. Normal bulk and tone. Cervical spine: No visible abnormalities. Full ROM. No tenderness to palpation. Thoracic spine: No visible abnormalities. No tenderness to palpation. Lumbar spine: No visible abnormalities. Full ROM. No tenderness to palpation. Joint Exam 05/26/2023 Right Left Glenohumeral Tender Tender Wrist Swollen Tender Tender CMC Swollen Tender Swollen Tender MCP 1 Swollen Tender Swollen Tender MCP 2 Tender Tender MCP 3 Tender Tender MCP 4 Tender Tender Knee Tender Tender The following joints were examined and normal: Left Sternoclavicular, Right Sternoclavicular, Left Acromioclavicular, Right Acromioclavicular, Left Elbow, Right Elbow, Left MCP 5, Right MCP 5, Left IP, Right IP, Left PIP 2, Right PIP 2, Left PIP 3, Right PIP 3, Left PIP 4, Right PIP 4, Left PIP 5, Right PIP 5, Left Ankle, Right Ankle, Left MTP 1, Right MTP 1, Left MTP 2, Right MTP 2, Left MTP 3, Right MTP 3, Left MTP 4, Right MTP 4, Left MTP 5, Right MTP 5 Joint Exam Data (across time) Joint Exam 05/26/2023 02/03/2023 06/28/2022 04/06/2022 Total Tender 14 4 0 11 Total Swollen 3 1 1 2 Impression Diagnoses: (M05.79) Rheumatoid arthritis involving multiple sites with positive rheumatoid factor (HCC) (primary encounter diagnosis) (Z79.899) High risk medication use (Z86.69) H/O iritis Plan Orders this visit: Office Visit on 05/26/23 C-REACTIVE PROTEIN (CRP) CBC + DIFF COMP METABOLIC PANEL SED RATE WESTERGREN BLOOD TB SCREEN HEP B SURF AG SCRN abatacept (ORENCIA CLICKJECT) 125 mg/mL auto-injector methylPREDNISolone acetate 80 mg injection (DEPO-Medrol) Discussed current status of her rheumatoid arthritis as active losing effectiveness with the Rinvoq. She will discontinue Rinvoq out right due to ineffectiveness and side effects. She will maintain the hydroxychloroquine 400 mg daily and her supply of this is good. Discussed treatment options going forward and she is tried and failed TNF agent Humira with ineffectiveness for her arthritis and nowa Douglas inhibitor with Rinvoq recommending Orencia 125 mg subcutaneously once each week just in the next treatment option. I discussed results via effects taking 8 to 12 weeks and sometimes even as much is 6 months out. I discussed the side effect profile this or less increased risk of infection but no black box warning. We will assess baseline labs she initiates to Orencia. I recommend we proceed with IM Depo-Medrol 80 mg intramuscularly here in the office today. Return in about 3 months (around 08/24/2023). I spent a total of 35 minutes on the date of the service which included preparing to see the patient, [id number] patient care, completing clinical documentation, obtaining and/or reviewing separately obtained history, performing a medically appropriate examination, counseling and educating the pat ient/family/caregiver, and ordering medications, tests, or procedures. Medical Decision Making: Problems: Moderate: 1+ chronic illnesses with change Data: Unique test(s) ordered: 3+ Risk: High: High risk from testing/treatment Medical Decision Making Level: 4 - Moderate Chris No MD Rheumatology Date: May 26, 2023 Time: 2:01 PM documented in this encounterJoint [facility]02-[facility]24 History of Present illness Narrative* Syed Zaragoza PA-C - 05/06/2023 8:30 AM EST Images from the original note were not included. Subjective Patient ID: Caty Chief Complaint: Chief Complaint Patient presents with Right Knee - Follow-up, Pain S/P TKR 12/24/21; Xrays Today History of present illness 63-year-old female presented to clinic today for follow-up status post right total knee replacement. She states overall the Medrol Dosepak did help however she is now starting to feel return of her symptoms of tightness in discomfort over the lateral aspect of the right knee. She is getting patellofemoral symptoms again. She has difficulty going up and down stairs. Difficulty getting up from a seated position. They are preparing to move to a ranch style home in [place] which will limit her stair walking. She does not recall a specific episode of injury at this time. She states that increased activity which can be attributed to her pain that she is having. Past medical , Surgical, Family and social history reviewed. Physical exam General: No acute distress and breathing comfortably. Patient is pleasant and cooperative with the examination. Extremity Right knee is neurovascular intact. Good range of motion. Tightness over the IT band. Tenderness palpation over the IT band. No signs of instability or infection. Incision is well-healed well-approximated this time. Without abnormality. Compartments soft. No calf swelling or tenderness. Diagnostics [ none] XR knee right 3 views Result Date: 05/06/2023 Interpreted By: Rodney Lamb, STUDY: XR KNEE RIGHT 3 VIEWS; ; 05/06/2023 9:01 am INDICATION: Signs/Symptoms:Pain. ACCESSION NUMBER(S): [id number] ORDERING CLINICIAN: RODNEY LAMB FINDINGS:Three views of the knee show status post joint replacement in good alignment. There are no signs offracture or dislocation. No other bony abnormalities Signed by: Rodney Lamb 05/06/2023 9:07 AM Dictation workstation: [id number] XR hip left with pelvis when performed 4+ views Result Date: 04/13/2023 EXAMINATION: Pelvis 1 view HISTORY: Left hamstring rupture COMPARISONS: None available TECHNIQUE: Single frontal views of the pelvis. FINDINGS: No acute proximal femur fracture. No hip dislocation. Joint space of the hip is maintained postsurgical changes of lumbosacral spine fusion. Soft tissues are within normal limits. No acute osseous abnormality. ELECTRONICALLY SIGNED BY: Chris Melara DO Procedure [ none] Assessment Status post right total knee replacement Treatment plan 1. At this time we went ahead and put her on a repeat Medrol Dosepak and cyclobenzaprine to help with muscle tightness. 2. She was encouraged continue with myofascial release technique as well as heating pad and rollingpin techniques. 3. We will follow-up with her in 1 month for reevaluation without x-ray. 4. All of the patient's questions were answered. This note was prepared using voice recognition software. The details of this note are correct and have been reviewed, and corrected to the best of my ability. Some grammatical areas may persist related to the Dragon software Syed Zaragoza PA-C, [facility] [place] documented in [facility]Paul[facility] Work Phone: [phone]) 358-643501-18-2024 Evaluation note* Encounter Date Diagnosis Assessment Notes Treatment Notes Treatment Clinical Notes Apr, GERD (gastroesophageal reflux di sease) (ICD-10 - K21.9) THE PATIENT WAS DIAGNOSED WITH GASTRITIS FROM AN EGD WITH DR. GABINO DE OLIVEIRA YEARS AGO. SHE TAKES PANTOPRAZOLE 40 MG DAILY. WE WILL INCREASE THIS TO TWICE DAILY. Apr,loating (ICD-10 - R14.0)THE PATIENT STATES SHE HAS BLOATING THAT STARTS ABOUT AN HOUR AFTER EATING. SHE IS EATING SMALLER MEALS BECAUSE OF THIS. SHE HAS PURCHASED A DIGESTIVE ENZYME FROM THE [employer] STORE & FEELS THIS DOES HELP WITH THE BLOATING. THE PATIENT CAN ADD FIBER SUPPLEMENTATIONS. Apr,UQ pain (ICD-10 - R10.11)THE PATIENT COMPLAINS UP UPPER RIGHT SIDED ABDOMINAL PAIN. SHE OFTEN COMPLAINS OF BLOATING WELL.THIS TYPICALLY STARTS ABOUT AN HOUR OF EATING. SHE IS ON PANTOPRAZOLE 40 MG DAILY FOR PREVIOUSLY CR GNOSED GASTRITIS. SHE DOES USE TRULANCE & PROBIOTICS DAILY. SHE HAS EITHER DIARRHEA OR SMALL RIBBON LIKE STOOLS DAILY. PROCEED WITH LAB WORK WITH [facility] CALPROTECTIN & CT SCAN Apr,iarrhea (ICD-10 - R19.7) [facility] Other 11-29-2023 NoteHNO ID: [id number] Author: Daniel Miles, OT/L Service: ? Author Type: Occupational Therapist Type: Progress Notes Filed: 03/02/2023 1:04 PM Note Text: Episode Visit Count: 1 Therapist That Will Accept/Oversee The Plan Of Care: Daniel Miles OTR/Car CHMaryam Start of Care Date: 03/02/23 Onset Date: 08/18/22 Plan of Care Certification Date: 03/02/23 Next Certification Due Date: 05/01/23 Patient Identified by Name and Date of : [place] [facility] OCCUPATIONAL THERAPY EVALUATION and discharge PLAN OF CARE: Assessment: [place] presents with chief complaint of BUE CMC pain that interferes with pinching, gripping . She presents with impairments in ADL's, overall function, and strength. Patient did not complete the PROMIS? (Patient Reported Outcome Measures Information System). Prognosis for therapy is Good due to: current objective clinical presentation . She will benefit from skilled therapy services to meet the goals established for this plan of care as noted below. Goals for Episode of Care created on 03/02/23 through 05/01/23 Patient will report a good understanding of diagnosis and OT recommendations for progression of program. Patient will demonstrate independence with ongoing home recommendations/exercise program throughout therapy plan of care. Patient will independently demonstrate correct application of PREFABRICATED orthosis and verbalize understanding of proper wear/care. Patient Goals: Reduced pain in thumbs All goals met on 03/02/23 Planned Interventions, Frequency, and Duration: Current Frequency: 1x/month Duration: 8 weeks Total Number of Visits Planned: 2 Planned Treatment Interventions: Prefabricated orthosis fitting, Therapeutic exercise (65718), Therapeutic activities (15191), Self-retirement management (03203), Orthotics management and training ([id number]), Paraffin Bath (84146), Fluidotherapy ([id number]) PLAN FOR NEXT VISIT: Progress synamic thumb stabilization program Patient demonstrates good understanding of plan of care and treatment. The above goals and plan of care were discussed and agreed upon by patient/family. SUBJECTIVE: Patient seen in clinic with chief complaint of bilateral thumb pain at the CMC joints with right greater than left. Of note patient had injection on the right thumb earlier today. Patient fit for bilateral size to push MetaGrip orthotics taught dynamic thumb CMC stabilization training with use of tennis ball. Patient lives in [place] and was assisted in finding a certified hand therapist closer to home for follow-up visits. Functional Limitations: pinching, gripping Prior Level of Function: Independent without limitations Patient Goals: Reduced pain in thumbs Previous Treatment: None Relevant History Right or Left Handed: Right Employment: Retired Recreation / Current Exercise: Light exercise Hobbies / Interests: [place] arrangement, cooking Home Environment Patient Lives With: Family Pain: Pain Pain Level: 4 Pain Location: Thumb - Right, Thumb - Left Description: Aching, Sore Post Treatment Pain Post Treatment Pain Level: Better Post Treatment Pain Location: Thumb - Right, Thumb - Left Post Treatment Pain Description: Aching, Sore PROMIS Scales T-scores: mean of general population = 50. 5 points is clinically meaningfully difference Percentiles provide an indication of how the patient's score ranks in relation to the general population. Higher percentile rankings indicate better function/quality of life. 50th percentile is the average of the general population and indicates half of respondents had a worse score. OBJECTIVE MEASURES WITH LEVEL OF FUNCTION: Sensation - Upper Extremity UE Light Touch Sensation: Grossly Intact Hand Elbow AROM: WFL Wrist AROM: WFL Right Hand AROM: WFL Left Hand AROM: WFL Thumb AROM: Bilateral Limitation UE AROM Right Hand AROM: WFL Left Hand AROM: WFL Thumb AROM: Bilateral Limitation Education: Education Learning Preferences: Demonstration, Explanation, Printed Materials Barriers: None Learning/educational needs: Brace Fit Education Provided: Yes, see treatment interventions for education provided Education Provided To: Patient Education Mode/Type: Demonstration, Explanation/Discussion, Literature/Printed Materials, Performance, Teach Back Response to Education/Teach Back: States/Identifies, Return Demonstration TREATMENT: OT Treatment Interventions : Therapeutic Exercise, Manual Therapy, Custom Orthosis/Splint Fabrication, Prefabricated Orthosis Fitting, Orthotic Mgmt/Train (Initial), Therapeutic Activity, Self-Residential Management, Neuromuscular Re-Education, Orthotic/Prosthetic Adjust/Train (Subsequent) Evaluation Self-Residential Management: 1: Patient educated on CMC joint protection strattegies and techniques 2: Patietn educated on activity mdification for ADL/IADL task perfor (more content not included)...[facility]11-29-2023 NoteHNO ID: [id number] Author: Oleg Malloy MD Service: ? 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 Having base of thumb pain for years, right greater than left She has tried a brace in the past which has helped Number tried any injections I most of her pain when trying to open jars and using thumb Otherwise healthy No diabetes, no smoking She does not have RA and she is on Plaquenil and a biologic DMARD PMH: PAST MEDICAL HISTORY Diagnosis Date Anxiety Class 2 obesity in adult Heart palpitations Hypertension Hypokalemia NONE Rheumatoid arthritis (HCC) Seizure-like activity (HCC) SVT (supraventricular tachycardia) Traumatic brain injury (HCC) slipped on ice and hit head on concrete and passed out for 2 min in 2009 ALLERGIES No Known Allergies Social History Tobacco Use Smoking status: Former Packs/day: 0.50 Years: 20.00 Additional pack years: 0.00 Total pack years: 10.00 Types: Cigarettes Quit date: 09/19/2000 Years since quittin.4 Smokeless tobacco: Never Vaping Use Vaping Use: Never used Substance Use Topics Alcohol use: Yes Comment: social Drug use: No Review of Systems: 12 point review of systems was performed and found to be non-contributory Exam: Right hand Skin intact Full finger flexion/extension, FPL/EPL intact SILT m/r/u Fingers wwp Positive shoulder sign TTP over the CMC Linesman grind test Pain w/ Abduction and extension 30 degrees MCP hyperextension Minimal tenderness over the radial styloid No tenderness over the A1 katina of the thumb, no obvious clicking or locking w/ IP ROM Imaging: XR bilateral hands Right greater than left moderate to severe CMC degen Assessment/Plan: (M18.10) Arthritis of carpometacarpal (CMC) joint of thumb (primary encounter diagnosis) I reviewed the x-rays with the patient She has right greater than left classic CMC arthritis We discussed treatment options including push MetaGrip braces, steroid injection, surgery At this point she would like to get 2 new push MetaGrip braces, OT referral placed She would like to try an injection today which I think is a reasonable starting point We will see how she responds to the injection and move forward from there RTC 6 weeks I reviewed the risks of steroid injection including fat atrophy, skin depigmentation, a spike in blood glucose, and possibly a transient increase in pain over the next 24 hrs. I told the pt that it may take several days for the full effects of the steroid to kick in. The pt expressed understanding of the risks and benefits and wished to proceed. Verbal consent was obtained. Injection was successfully delivered. The pt tolerated the procedure well without any immediate complications. Small Joint Arthro/Inj: R thumb CMC Informed Consent Consent Obtained: Verbal Bradley Protocol A moment to CARE was completed. SIGN IN TIME OUT 03/02/2023 12:44 PM The procedure site was prepped in the usual sterile fashion. Outcome: tolerated well, no immediate complications Post-injection instructions were reviewed with the patient and the patient voiced understanding of these instructions. Medical Decision Making: Problems: Moderate: 1+ chronic illnesses with change Data: Unique test result(s) reviewed: 1 Risk: Moderate: Drug management Medical Decision Making Level: 4 - Moderate Oleg Malloy MD [facility] History of Present illness Narrative* Daniel Miles OT/L - 03/02/2023 1:02 PM EST Episode Visit Count: 1 Therapist That Will Accept/Oversee The Plan Of Care: MANJU Mercado/Car CHT Start of Care Date: 03/02/23 Onset Date: 08/18/22 Plan of Care Certification Date: 03/02/23 Next Certification Due Date: 05/01/23 Patient Identified by Name and Date of : Yes [facility] OCCUPATIONAL THERAPY EVALUATION and discharge PLAN OF CARE: Assessment: [place] presents with chief complaint of BUE CMC pain that interferes with pinching, gripping . She presents with impairments in ADL's, overall function, and strength. Patient did not complete the PROMIS (Patient Reported Outcome Measures Information System). Prognosis for therapy is Good due to: current objective clinical presentation . She will benefit from skilled therapyservices to meet the goals established for this plan of care as noted below. Goals for Episode of Care created on 03/02/23 through 05/01/23 Patient will report a good understanding of diagnosis and OT recommendations for progression of program. Patient will demonstrate independence with ongoing home recommendations/exercise program throughouttherapy plan of care. Patient will independently demonstrate correct application of PREFABRICATED orthosis and verbalize understanding of proper wear/care. Patient Goals: Reduced pain in thumbs All goals met on 03/02/23 Planned Interventions, Frequency, and Duration: Current Frequency: 1x/month Duration: 8 weeks Total Number of Visits Planned: 2 Planned Treatment Interventions: Prefabricated orthosis fitting, Therapeutic exercise ([id number]), Therapeutic activities (50947), Self-retirement management (87652), Orthotics management and training ([id number]), Paraffin Bath (66678), Fluidotherapy (81899) PLAN FOR NEXT VISIT: Progress synamic thumb stabilization program Patient demonstrates good understanding of plan of care and treatment. The above goals and plan of care were discussed and agreed upon by patient/family. SUBJECTIVE: Patient seen in clinic with chief complaint of bilateral thumb pain at the CMC joints with right greater than left. Of note patient had injection on the right thumb earlier today. Patient fit for bilateral size to push MetaGrip orthotics taught dynamic thumb CMC stabilization training with use of tennis ball. Patient lives in [place] and was assisted in finding a certified hand therapist closer to home for follow-up visits. Functional Limitations: pinching, gripping Prior Level of Function: Independent without limitations Patient Goals: Reduced pain in thumbs Previous Treatment: None Relevant History Right or Left Handed: Right Employment: Retired Recreation / Current Exercise: Light exercise Hobbies / Interests: [place] arrangement, cooking Home Environment Patient Lives With: Family Pain: Pain Pain Level: 4 Pain Location: Thumb - Right, Thumb - Left Description: Aching, Sore Post Treatment Pain Post Treatment Pain Level: Better Post Treatment Pain Location: Thumb - Right, Thumb - Left Post Treatment Pain Description: Aching, Sore PROMIS Scales T-scores: mean of general population = 50. 5 points is clinically meaningfully difference Percentiles provide an indication of how the patient's score ranks in relation to the general population. Higher percentile rankings indicate better function/quality of life. 50th percentile is the average of the general population and indicates half of respondents had a worse score. OBJECTIVE MEASURES WITH LEVEL OF FUNCTION: Sensation - Upper Extremity UE Light Touch Sensation: Grossly Intact Hand Elbow AROM: WFL Wrist AROM: WFL Right Hand AROM: WFL Left Hand AROM: WFL Thumb AROM: Bilateral Limitation UE AROM Right Hand AROM: WFL Left Hand AROM: WFL Thumb AROM: Bilateral Limitation Education: Education Learning Preferences: Demonstration, Explanation, Printed Materials Barriers: None Learning/educational needs: Brace Fit Education Provided: Yes, see treatment interventions for education provided Education Provided To: Patient Education Mode/Type: Demonstration, Explanation/Discussion, Literature/Printed Materials, Performance, Teach Back Response to Education/Teach Back: States/Identifies, Return Demonstration TREATMENT: OT Treatment Interventions : Therapeutic Exercise, Manual Therapy, Custom Orthosis/Splint Fabrication, Prefabricated Orthosis Fitting, Orthotic Mgmt/Train (Initial), Therapeutic Activity, Self-Residential Management, Neuromuscular Re- Education, Orthotic/Prosthetic Adjust/Train (Subsequent) Evaluation Self-Residential Management: 1: Patient educated on CMC joint protection strattegies and techniques 2: Patietn educated on activity mdification for ADL/IADL task performance Skilled Intervention: Skilled judgment in the selection of proper modification for activity of daily living/home management based on clinical presentation, deficits, and needs. Reviewed patient specific diagnosis in relation to activities of daily living/home management. Activity progression based on professional judgement. Prefabricated orthosis: L 3923 (a) HFO w/out joints (PUSH Metagrip, Actimove) Prefabricated orthosis to provide immobilization of BUE CMC .. Patient was instructed in wear and care. Instructed in wearing schedule As needed day and/or night for pain relief.. Skilled Intervention: Technical skill required for proper fitting of pre-fabricated orthotic and wearing schedule Required supervision for donning/doffing orthosis Billing * Evaluation Low Complexity: 1 Unit Self-Care/Home Management Treatment Minutes: 15 Orthotic Mgmt/Train (Initial) Treatment Minutes: 15 * L 3923 (a) HFO w/out joints (PUSH Metagrip, Actimove): 2 Skilled Treatment Time Minutes (timed and untimed codes): 45 Total Session Time (minutes): 45 Session Start Time : 1100 Session Stop Time : 1145 BAYRON Mercado documented [facility] History of Present illness Narrative* Oleg Malloy MD - 03/02/2023 12:40 PM ESTAssociated Order(s): Small Joint Arthro/Inj: R thumb CMC Post-Procedure Diagnose(s): Arthritis of carpometacarpal (CMC) joint of thumb Hand Surgery New Pt Note HPI: 62-year-old female, 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, 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 Having base of thumb pain for years, right greater than left She has tried a brace in the past which has helped Number tried any injections I most of her pain when trying to open jars and using thumb Otherwise healthy No diabetes, no smoking She does not have RA and she is on Plaquenil and a biologic DMARD PMH: PAST MEDICAL HISTORY Diagnosis Date Anxiety Class 2 obesity in adult Heart palpitations Hypertension Hypokalemia NONE Rheumatoid arthritis (HCC) Seizure-like activity (HCC) SVT (supraventricular tachycardia) Traumatic brain injury (HCC) slipped on ice and hit head on concrete and passed out for 2 min in 2009 ALLERGIES No Known Allergies Social History Tobacco Use Smoking status: Former Packs/day: 0.50 Years: 20.00 Additional pack years: 0.00 Total pack years: 10.00 Types: Cigarettes Quit date: 09/19/2000 Years since quittin.4 Smokeless tobacco: Never Vaping Use Vaping Use: Never used Substance Use Topics Alcohol use: Yes Comment: social Drug use: No Review of Systems: 12 point review of systems was performed and found to be non-contributory Exam: Right hand Skin intact Full finger flexion/extension, FPL/EPL intact SILT m/r/u Fingers wwp Positive shoulder sign TTP over the CMC Linesman grind test Pain w/ Abduction and extension 30 degrees MCP hyperextension Minimal tenderness over the radial styloid No tenderness over the A1 katina of the thumb, no obvious clicking or locking w/ IP ROM Imaging: XR bilateral hands Right greater than left moderate to severe CMC degen Assessment/Plan: (M18.10) Arthritis of carpometacarpal (CMC) joint of thumb (primary encounter diagnosis) I reviewed the x-rays with the patient She has right greater than left classic CMC arthritis We discussed treatment options including push MetaGrip braces, steroid injection, surgery At this point she would like to get 2 new push MetaGrip braces, OT referral placed She would like to try an injection today which I think is a reasonable starting point We will see how she responds to the injection and move forward from there RTC 6 weeks I reviewed the risks of steroid injection including fat atrophy, skin depigmentation, a spike in blood glucose, and possibly a transient increase in pain over the next 24 hrs. I told the pt that it may take several days for the full effects of the steroid to kick in. The pt expressed understanding of the risks and benefits and wished to proceed. Verbal consent was obtained. Injection was successfully delivered. The pt tolerated the procedure well without any immediate complications. Small Joint Arthro/Inj: R thumb CMC Informed Consent Consent Obtained: Verbal Bradley Protocol A moment to CARE was completed. SIGN IN TIME OUT 03/02/2023 12:44 PM The procedure site was prepped in the usual sterile fashion. Outcome: tolerated well, no immediate complications Post-injection instructions were reviewed with the patient and the patient voiced understanding of these instructions. Medical Decision Making: Problems: Moderate: 1+ chronic illnesses with change Data: Unique test result(s) reviewed: 1 Risk: Moderate: Drug management Medical Decision Making Level: 4 - Moderate Oleg Malloy MD Hand Surgery documented in this encounterJoint [facility]11-16-[facility] History of Present illness Narrative* Rena Becerra MD - 02/17/2023 11:45 AM EST Patient was most recently in 01/24/2023 and presents for follow-up after echocardiogram and Holter. Subjective : Still wearing brace in her left lower extremity, activity level however is improving. Palpitations have improved. Reviewed results of Holter monitor, stress test not approved by insurance. Objective Wt Readings from Last 3 Encounters: 02/17/23 106 kg (233 lb) 01/29/23 102 kg (224 lb) 01/24/23 106 kg (233 lb) Patient is awake alert oriented x3, no acute distress Lungs are clear Heart sounds are regular without murmur rub or gallop Extremities show no edema Ambulates with left lower extremity brace in place. Physical Exam: Meds: Current Outpatient Medications Medication Instructions aspirin 81 mg, oral, Daily escitalopram (LEXAPRO) 20 mg, oral folic acid (FOLVITE) 1 mg, oral, TAKE 1 TABLET DAILY DIRECTED. Need to be taken For Methotrexatetherapy
hydroxychloroquine (Plaquenil) 200 mg tablet 1 tablet, oral, 2 times daily metoprolol succinate XL (TOPROL-XL) 50 mg, oral, Daily, Do not crush or chew. pantoprazole (PROTONIX) 40 mg, oral QUEtiapine (SEROQUEL) 25 mg, oral, As needed Rinvoq 15 mg, oral VALSARTAN ORAL oral No Known Allergies Reviewed laboratory data from December to include CBC, basic metabolic profile and liver enzymes. LABS: Lab Results Component Value Date WBC 6.7 12/23/2022 HGB 12.5 12/23/2022 HCT 36.6 12/23/2022 PLT 280 12/23/2022 ALT 16 03/01/2022 AST 19 03/01/2022 NA 137 12/23/2022 K 4.4 12/23/2022 CL 102 12/23/2022 CREATININE 0.73 12/23/2022 BUN 25 (H) 12/23/2022 CO2 26 12/23/2022 HGBA1C 5.8 (H) 07/11/2020 Problem List: Patient Active Problem List Diagnosis Date Noted Hamstring injury 01/24/2023 Palpitations 01/24/2023 Shortness of breath 01/24/2023 Syncope and collapse 01/24/2023 Knee osteoarthritis 12/01/2022 Rheumatoid arthritis (CMS/HCC) 12/01/2022 Assessment: 1. Palpitations-raising concern for some type of reentrant tachycardia episodes getting more frequent and lasting longer sometimes wakes her up from sleep at night 2. Chest discomfort, probably rate related angina pectoris, but will need to rule out flow-limitingcoronary artery disease 3. Abnormalities on EKG with poor R wave progression. Normal intervals 4. Diarrhea to Trulance. We will hold off on magnesium 5. Not orthostatic in office today 6. Iatrogenic hypokalemia,potassium has normalised. 7. Hypertension-at target 8. Former smoker 9. Averages 2 caffeinated beverages daily 10. Chronic inflammatory process-rheumatoid arthritis. 11. Multiple orthopedic surgeries-bilateral carpal tunnel release, left knee replacement back surgery. 12. Episode of syncope November 2022 13.48-hour Holter monitor shows isolated supraventricular premature beats and short runs of what appears to be atrial tachycardia longest run was 10 beats long. No atrial fibrillation 14. Echocardiogram January 2023-RV systolic pressure 29 mmHg, LVEF 70%, left atrial diameter 3.3 cmLV end-systolic diameter 2.4 cm aortic root size 3.2 cm, trace mitral regurgitation trace tricuspidregurgitation no pericardial effusion normal RV size and systolic function Palpitations have improved on metoprolol succinate. No side effects. Reviewed laboratory data from February 2023 to include CBC, liver enzymes, sed rate. Assessment/Recommendations 1. Patient with palpitations most likely related to supraventricular premature beats and paroxysmalatrial tachycardia with improvement on current medical therapy 2. Primary hypertension, may need to down titrate the dose of valsartan, blood pressure low normal. 3. We are keeping her potassium greater than 4. 4. Patient reports improvement in palpitations. 5. Reviewed results of Holter and echocardiogram 6. Patient to stay well-hydrated Follow up : 6 months Rena Becerra MD [facility] Work Phone: [phone] 514-781711-16-2023 Instructions* Patient Instructions* Samantha Rodriguez LPN - 02/17/2023 11:45 AM EST Please bring all medicines, vitamins, and herbal supplements with you when you come to the office. Prescriptions will not be filled unless you are compliant with your follow up appointments or have a follow up appointment scheduled as per instruction of your physician. Refills should be requested at the time of your visit. documented in this encounterUnPark[facility] Work Phone: [phone]) 606-111711-15-2023 Miscellaneous Notes* Telephone Encounter - Ivania Breaux RN - 02/16/2023 4:00 PM EST Left VM to call office back. * Telephone Encounter - Benji Kimble MD - 02/16/2023 3:22 PM EST We discussed with the patient a referral to Dr. Oleg Malloy regarding surgery. I will reach out to his office and they will contact her at [phone]. Xqza to relay this information to the patient. * Telephone Encounter - Ivania Breaux RN - 02/16/2023 3:05 PM EST Pt calling in states she would like to proceed with surgery which was [facility]. She was advised to call or message when she made her decision. Please advise. [facility] indicate she would be referred to Dr. Srinivasan Lujan. documented in this encounterJoint [facility]11[facility] History of Present illness Narrative* Benji Kimble MD - 02/14/2023 10:56 AM EST [facility] Department of Orthopedics Benji Kimble MD FACS 62-year-old female with bilateral thumb pain. Is been going on for about 6 months to a year but worsening over the last 3 months. The right is worse than the left. She currently is utilizing a cane in her right hand secondary to a left hamstring repair done outside the [facility] system. She points directly to the CMC joint as a source of discomfort. Has documented rheumatoid arthritis and is managed by rheumatology at [facility] Current Outpatient Medications Medication Sig RINVOQ Tb24 tablet Take 1 tablet (15 mg) by mouth once daily. metoprolol tartrate, short acting, (LOPRESSOR) 50 mg tablet Take 25 mg by mouth twice daily. potassium chloride 20 mEq TbER Take 20 mEq by mouth once daily. docusate sodium (COLACE) 100 mg capsule Take 1 capsule by mouth two times a day as needed for constipation. hydrOXYchloroQUINE (PLAQUENIL) 200 mg tablet Take 1 tablet by mouth twice daily. Valsartan-hydroCHLOROthiazide 160-25 mg per tablet Take 1 tablet by mouth once daily. escitalopram oxalate (LEXAPRO) 20 mg tablet Take 20 mg by mouth daily at bedtime. QUEtiapine (SEROQUEL) 25 mg tablet Take 25 mg by mouth at bedtime as needed. Take 1-2 tabs as needed for sleep Hmtpxbpamtvzn-Qorgpiid-Ndbvsj (MULTIVITAMIN 50 PLUS) tab Take 1 tablet by mouth once daily. pantoprazole DR (PROTONIX) 40 mg tablet Take 40 mg by mouth once daily. multivitamin tablet Take 1 tablet by mouth once daily. ascorbic acid, vitamin C, (VITAMIN C) 500 mg tablet Take 1 tablet by mouth two times a day with meals. plecanatide (TRULANCE) 3 mg tablet Take 3 mg by mouth daily at bedtime. No current facility-administered medications for this visit. ACTIVE PROBLEM LIST fibromyalgia Metatarsus Adductus of Both Feet Rheumatoid Arthritis Involving Multiple Sites With Positive Rheumatoid Factor (Hcc) Closed Displaced Fracture of Fifth Metatarsal Bone of Left Foot Os Peroneum Syndrome of Left Foot Peroneal Tendinitis of Left Lower Extremity Obesity (Bmi 30-39.9) Hypertension Heart Palpitations Hypokalemia H/O Iritis PAST SURGICAL HISTORY Procedure Laterality Date ANESTHESIA VAGINAL HYSTERECTOMY INCL BIOPSY 1996 ENDOMETRIOSIS, PAIN , CYSTS BACK SURGERY HX 2014 spinal fusion with screws CARPAL TUNNEL RIGHT WRIST 1996 RIGHT AND LEFT WRIST CONIZATION CERVIX W/WO D&C RPR KNIFE/LASER 1994 DYSPLASIA DILATION & CURETTAGE DX&/THER NONOBSTETRIC Dilation & curettage DILATION & CURETTAGE DX&/THER NONOBSTETRIC Dilation & curettage KNEE SURGERY HX PAST SURGICAL HISTORY OF 1978 REMOVAL OF BENIGN CYST RIGHT NECK PAST MEDICAL HISTORY Diagnosis Date Anxiety Class 2 obesity in adult Heart palpitations Hypertension Hypokalemia NONE Rheumatoid arthritis (HCC) Seizure-like activity (HCC) SVT (supraventricular tachycardia) Traumatic brain injury (HCC) slipped on ice and hit head on concrete and passed out for 2 min in 2009 FAMILY HISTORY Problem Relation Age of Onset Thyroid Mother Coronary Artery Disease Mother Arthritis Mother Asthma Mother Hypertension Mother Cancer Mother Arrythmias Mother Afib Heart Failure Mother CHF-cause of Stroke Mother Diabetes Mother Cancer Father testicular cancer Heart disease Half-sister Thyroid Brother Hypertension Brother Heart disease Maternal Grandmother Heart disease Maternal Grandfather Cancer Paternal Grandmother bone Breast Cancer Paternal Grandmother Heart disease Paternal Grandfather Mental illness Daughter Multiple Sclerosis Son Schizophrenia Paternal Aunt Social History Tobacco Use Smoking status: Former Packs/day: 0.50 Years: 20.00 Additional pack years: 0.00 Total pack years: 10.00 Types: Cigarettes Quit date: 09/19/2000 Years since quittin.4 Smokeless tobacco: Never Vaping Use Vaping Use: Never used Substance Use Topics Alcohol use: Yes Comment: social Drug use: No ALLERGIES No Known Allergies REVIEW OF SYSTEMS General: NO fever, NO chills, NO night sweats Constitutional:NO recent unwanted weight loss, NO excessive weight Skin: NO rashes, NO chronic skin condition Head: NO seizures, NO headaches, NO dizziness Respiratory: NO cough Cardiovascular: NO chest pain Gastrointestinal: NO nausea, NO vomiting, NO abdominal painEndocrine: NO thyroid problems, NO heat intolerance Musculoskeletal: see HPI Neurologic: no numbness or tingling in extremities Examination: 62-year-old female no acute distress. Alert and oriented x3. 5 foot 7 inches tall 266 pounds. Positive tenderness in the CMC joint with a positive Apley grind test. Hyperextension deformity is noted in the MCP joint of the thumb. No evidence for DeQuervains tendinitis. Radiologic review: X-rays ordered previously and to my interpretation shows stage III CMC osteoarthritis of the thumbs. Impression: Bilateral thumb CMC rheumatoid arthritis. At this point the patient is waiting to see if she indeed will be not utilizing the cane soon. She has an appointment tomorrow regarding this. After discussion of both injection therapy as well as describing the surgical procedure, it seems as though if she can get off the cane very soon she would rather proceed with surgery at that time we wou ld refer her to Dr. Srinivasan Lujan, should she have to postpone surgery we would refer her to Dr. Myhcal Aden for ultrasound-guided cortisone injection. At the conclusion of the office visit, the patient was asked if they had any questions regarding the diagnosis or care. Also, ample time was provided for the patient to ask any questions regarding the diagnosis therefore plan of care. All the patient's questions if asked were answered to their satisfaction. This note was partially generated using [employer] voice recognition system and as such may contain grammatical or word errors Benji Kimble MD documented in this encounterJoint [facility]11-02-2023 History of Present illness Narrative* Rebeca Talavera, RT(R) - 02/03/2023 12:40 PM EDT Radiology Service Progress Note PATIENT NAME: Caty Hills DATE OF SERVICE: February 03, 2023 TIME: 12:28 PM PATIENT IDENTITY VERIFICATION COMPLETED USING TWO (2) IDENTIFIERS: Name and Date of confirmedby patient verbally and Name and Date of confirmed by identification band. FALL SCREENING: Has the patient had 2 falls in the last year or 1 fall with injury or currently using an Ambulatory Assistive Device (Walker, Cane, Wheelchair, Crutches, etc.)? No PATIENT GENDER DATA: Female. status: : No status: NO. PATIENT RELEVANT IMPLANT DATA REVIEWED: Not Applicable RADIOLOGY DEPARTMENT: General X-ray: Exam(s) Completed: Upper Extremity X- Ray(s): Hand, bilateral PERIPHERAL IV DATA: Not applicable SIGNED BY: RT Alirio(R) February 03, 2023 12:28 PM documented in this encounterJoint Township District [facility] Hospital10-14-2023 NoteHNO ID: [id number] Author: Note, Interface Service: ? Author Type: ? Type: Progress Notes Filed: 01/15/2023 4:14 AM Note Text: Epic Scheduled Downtime: 01/15/2023 1:00:00 AM to 01/15/2023 1:28:00 [id number] NoteHNO ID: [id number] Author: Jerry Yin AA Service: ? 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 Type: Anesthesia Procedure Notes Filed: 12/30/2022 1:35 PM Note Text: ANESTHESIOLOGY PROCEDURE NOTE Airway General Information Procedure Start Time/Medication Administration: 12/30/2022 1:13 PM Patient location during procedure: OR Timeout Performed Pre-procedure: timeout performed Consent Obtained: Yes Patient identity confirmed: arm band, care team primary care physician and patient Staffing CAA: Jerry Yin AA Indications and Patient Condition Indications for airway management: anesthesia Preoxygenated: yes anesthesia circuit Patient position: sniffing Method: asleep Cricoid Pressure: No Manual In-Line Stabilization: No Difficult Mask: No Final Airway Details Final airway type: endotracheal airway Final Endotracheal Airway: ETT Cuffed: yes Successful intubation technique: video laryngoscopy Devices used: Taggs Endotracheal tube insertion site: oral Blade: Gloria Blade size: #4 ETT size (mm): 7.0 Measured from: lips Measurement (cm): 23 Placement verified by: chest auscultation and capnometry Cormack-Lehane Classification: grade I - full view of glottis Number of attempts at approach: 1 Ventilation between attempts: BVM Airway trauma: none. Failed airway: no Unrecognized esophageal intubation: no Airway not difficult SIGNATURE: VINICIUS Davis PATIENT NAME: Caty Hills DATE: December 30, 2022 TIME: 1:35 PM CSN: [id number] Miscellaneous Notes* Telephone Encounter - Alexandra Henderson LPN - 11/08/2022 2:02 PM EDT Spoke with [facility]. Prior authorization was already initiated prior to my call. Currently pending. KAILYN # [id number]. documented in this encounterJoint Township District [facility] Hospital07-14-2023 Miscellaneous Notes* Telephone Encounter - Phoenix Ibrahim RN - 10/15/2022 10:06 AM EDT Called and left voicemail with call back number. Phoenix Ibrahim RN * Telephone Encounter - Phoenix Ibrahim RN - 10/14/2022 11:08 AM EDT Most recent Rheumatology visit: 06/28/2022 (with Chris No) Recent Office Visits - This Specialty 06/28/2022 Rheumatoid arthritis involving multiple sites with positive rheumatoid factor (HCC) Rheumatology Chris No MD 04/06/2022 Rheumatoid arthritis involving multiple sites with positive rheumatoid factor (HCC) Rheumatology Chris No MD 12/21/2002 ABDOMINAL PAIN OTHER SPEC SITE Rheumatology Arely Ash (Hist) Upcoming Rheumatology Appointments - Next 365 Days Visit Type Date Time Department KASSI EST RHEU MEDICAL EXT [facility] REJ Last Ophthalmology Check for Plaquenil (Hydroxychloroquine) Last OCT Macula Exam No resulted procedures found. Last Visual Field Exam No resulted procedures found. CBC: None on file in the last 6 months Vitamin D: None on file in the last 6 months LFT: None on file in the last 6 months Hepatic Function: Creatinine: None on file in the last 6 months ESR/CRP: None on file in the last 6 months Uric Acid: None on file in the last 6 months Open Standing (Multiple Instance) Lab Orders None Open Future (Single Instance) Lab Orders None Requested Prescriptions Pending Prescriptions Disp Refills upadacitinib (RINVOQ) Tb24 tablet 30 tablet 5 Sig: Take 1 tablet (15 mg) by mouth once daily. Swallow whole; DO NOT crush, chew, or open. documented in this encounterJoint [facility]05-27-2023 History of Present illness Narrative* History of present illness * 62-year-old female presented clinic today for follow-up evaluation status post right total knee Maximino. She has been dealing with some increased pain over the last month. She notices that she has swelling and sharp pain with extended weightbearing activity. She was doing extremely well. No new injurythat she can recall. No instability reported. She can still do everything she wants to do she just noticed some increased swelling at this time * Physical exam * General: No acute distress and breathing comfortably. Patient is pleasant and cooperative with the examination. * Extremity * Right knee is neurovascular intact. Good range of motion 0 to 110 degrees. No signs of infection. Incisions well-healed approximate this time. Tenderness palpation of the IT band distally. No calf swelling or tenderness. Compartments soft. 2+ pulses bilateral extremity. Capillary refill is within normal limits distally. No instability on exam * Diagnostics * [ none] * Procedure * [ none] * Assessment * Status post right total knee Maximino * Treatment plan * 1. At this time prescription for Medrol Dosepak sent to pharmacy * 2. She was instructed on continuing with fascia releasing over the IT band and stretching * 3. She will continue with weightbearing activity as tolerated. Follow-up with us as scheduled. * 4. All of the patient's questions were answered. * This note was prepared using voice recognition software. The details of this note are correct and have been reviewed, and corrected to the best of my ability. Some grammatical areas may persist related to the [employer] software * Syed Zaragoza PA-C * . -[facility] Work Phone: [phone] Evaluation note* Encounter Date Diagnosis Assessment Notes Treatment Notes Treatment Clinical Notes Jul, GERD (gastroesophageal reflux di sease) (ICD-10 - K21.9) Patient doing well on Pantoprazole. Continue this without change. Return visit in one year [facility] Other 03-27-2023 History of Present illness Narrative* Chris No MD - 06/28/2022 4:06 PM EDT Images from the original note were not included. Rheumatology Outpatient Clinic Date of Service: 06/28/2022 Patient: Caty Hills Medical Record: [id number] Primary Care Physician: Anibal Juan DO Last Rheumatology visit: 04/06/2022 (with Chris No) History of Present Illness Caty Hills is a 62 year old White female who presents on 06/28/2022 for an in-person visit for evaluation of Rheumatoid Arthritis. She is currently taking hydroxychloroquine sulfate, upadacitinib. Her most recent CHERIE was negative (07/11/2020). HISTORY OF PRESENT ILLNESS This patient is known to me from my previous practice with [facility] with diagnosis of rheumatoid arthritis. This patient has been on DMARD therapy in the past with methotrexate and has not tolerated it well. She had been on a sequence of Biologics and when last seen in May 2021 wason Rinvoq 15 mg daily and doing well. Then in June 2021 that she developed a bout of iritis. She was being seen by a different real estate specialist with [facility] and switch her off of Rinvoq and placed her on Humira for the iritis. The patient has tolerated the Humira and it is improved her iritis. She has not needed to be on topical steroid treatment for her eyes in several months now. She does get some breakthrough discomfort in her eyes but no full-blown iritis. Where is a bigger problem is off of the Rinvoq she is had escalation of rheumatoid arthritis activity in her hands, wrists, shoulders, right knee and toes despite being on the Humira. Her other real estate specialist is even attempted to place methotrexate in combination with the Humira and this did not improve her rheumatoid arthritis and she felt ill on the methotrexate and has discontinued it. She was inquiring as to whether or not she would be allowed to go back onto the Rinvoq. Aside from the iritis she has not experienced any other extra- articular manifestations of rheumatoid arthritis. She shares with me that she had her right knee replaced 3 months ago and it is not doing as well as the left knee did from 2-1/2 years ago. The right knee remains quite swollen and painful and she believes the rheumatoid arthritismay be contributing to the right knee pain. INTERVAL HISTORY Patient returns for reevaluation of rheumatoid arthritis. Since last visit the patient has switchedHumira back to Rinvoq 15 mg once daily in combination with Plaquenil 400 mg daily. She notes that she is doing much better in terms of her arthritis pain. She even comments that she believes she developed some psoriatic skin plaques on few areas of her body. These subsequently resolved in short orde r on the Rinvoq. She inquired about the concept of psoriatic arthritis versus rheumatoid arthritis.She states that she believes her mother had psoriatic arthritis. The recent bout of iritis may havebeen more consistent with psoriatic arthritis than rheumatoid arthritis. Her iritis is resolved andshe has not had any further recurrence since going on the Rinvoq. There are no new extra- articular manifestations of rheumatoid arthritis. Her general health remains stable. Patient-Entered Data PAIN EVALUATION 06/28/2022 1609 Pain Level: 5 Pain Location: -- bilat hands.weak and painful PROMIS Assessments RAPID 3 Clancy Activities of Daily Living No Data Dress self? - Get in and out of bed? - Walk outdoors? - Wash and dry body? - Get in and out of car? - RAPID 3 Disease Activity Weighed Score Levels: 0 - 1: Near Remission 1.3 - 2.0: Low Severity 2.3 - 4.0: Moderate Severity 4.3 - 10.0: High Severity Review of Systems Review of Systems CONSTITUTION: Negative for: Weight loss or gain, Fever. Chills, Night sweats HEENT: Negative for: Nosebleeds, Mouth sores, Trouble swallowing, Dry mouth RESPIRATORY: Negative for: Cough, Shortness of breath, Pain with breathing, Coughing up blood GASTROINTESTINAL: Negative for: Melena, Diarrhea, Abdominal pain, Heartburn, MUSCULOSKELETAL: Positive for: Arthralgias and Morning Joint Stiffness Negative for: Myalgias, Muscle weakness and Joint swelling NEUROLOGICAL: Negative for: Headaches, Numbness, Memory loss, SKIN: Negative for: Rashes, Sun sensitive rashes, Skin color changes, Hair loss, Nail changes EYES: Negative for: Eye pain, Eye redness, Eye dryness and visual disturbance CARDIOVASCULAR: Negative for: Chest pain, Leg swelling, Arrhythmia, Presyncope GENITOURINARY: Negative for: Dysuria, Hematuria, Ulceration HEMATOLOGIC/LYMPHATIC: Negative for: Swollen glandsAll other reviewed and negative other than HPI. Past Medical History PAST MEDICAL HISTORY Diagnosis Date Anxiety Class 2 obesity in adult Heart palpitations Hypertension Hypokalemia NONE Rheumatoid arthritis (HCC) Seizure-like activity (HCC) SVT (supraventricular tachycardia) (HCC) Traumatic brain injury slipped on ice and hit head on concrete and passed out for 2 min in 2009 Past Surgical History PAST SURGICAL HISTORY Procedure Laterality Date ANESTHESIA VAGINAL HYSTERECTOMY INCL BIOPSY 1996 ENDOMETRIOSIS, PAIN , CYSTS BACK SURGERY HX 2014 spinal fusion with screws CARPAL TUNNEL RIGHT WRIST 1996 RIGHT AND LEFT WRIST CONIZATION CERVIX W/WO D&C RPR KNIFE/LASER 1994 DYSPLASIA DILATION & CURETTAGE DX&/THER NONOBSTETRIC Dilation & curettage DILATION & CURETTAGE DX&/THER NONOBSTETRIC Dilation & curettage KNEE SURGERY HX PAST SURGICAL HISTORY OF 1978 REMOVAL OF BENIGN CYST RIGHT NECK Family History FAMILY HISTORY Problem Relation Age of Onset Thyroid Mother Coronary Artery Disease Mother Arthritis Mother Asthma Mother Hypertension Mother Cancer Mother Arrythmias Mother Afib Heart Failure Mother CHF-cause of Stroke Mother Diabetes Mother Cancer Father testicular cancer Heart disease Half-sister Thyroid Brother Hypertension Brother Heart disease Maternal Grandmother Heart disease Maternal Grandfather Cancer Paternal Grandmother bone Breast Cancer Paternal Grandmother Heart disease Paternal Grandfather Mental illness Daughter Multiple Sclerosis Son Schizophrenia Paternal Aunt Social History Social History Tobacco Use Smoking status: Former Packs/day: 0.50 Years: 20.00 Pack years: 10.00 Types: Cigarettes Quit date: 09/19/2000 Years since quittin.7 Smokeless tobacco: Never Vaping Use Vaping Use: Never used Substance Use Topics Alcohol use: Yes Comment: social Drug use: No Current Medications Current Outpatient Medications Medication Sig upadacitinib (RINVOQ) Tb24 tablet Take 1 tablet (15 mg) by mouth once daily. Swallow whole; DO NOT crush, chew, or open. Valsartan-hydroCHLOROthiazide 160-25 mg per tablet Take 1 tablet by mouth once daily. escitalopram oxalate (LEXAPRO) 20 mg tablet Take 20 mg by mouth daily at bedtime. QUEtiapine (SEROQUEL) 25 mg tablet Take 25 mg by mouth at bedtime as needed. Take 1-2 tabs as needed for sleep plecanatide (TRULANCE) 3 mg tablet Take 3 mg by mouth daily at bedtime. Cthcbyeqxqmof-Mubipoff-Dkmotu (MULTIVITAMIN 50 PLUS) tab Take 1 tablet by mouth once daily. pantoprazole DR (PROTONIX) 40 mg tablet Take 40 mg by mouth once daily. hydrOXYchloroQUINE (PLAQUENIL) 200 mg tablet Take 1 tablet by mouth twice daily. No current facility-administered medications for this visit. Last Ophthalmology Check for Plaquenil (Hydroxychloroquine) Last OCT Macula Exam No resulted procedures found. Last Visual Field Exam No resulted procedures found. Labs CBC Latest Ref Rng & Units 04/06/2022 01/18/2021 12/30/2018 12/21/2002 WBC 3.70 - 11.00 k/uL 9.14 4.34 10.21 10.18 HEMOGLOBIN 11.5 - 15.5 g/dL 13.5 12.1 13.5 13.4 HEMATOCRIT 36.0 - 46.0 % 40.6 35.9(L) 41.1 39.9 PLATELETS 150 - 400 k/uL 266 178 256 220 ABS NEUT (ANC) 1.45 - 7.50 k/uL 4.46 0.83(L) 3.88 5.19 ABS LYM 1.0 - 4.0 k/uL - - - 3.97 ABS LYMPH 1.00 - 4.00 k/uL 3.72 2.53 5.31(H) - CMP Latest Ref Rng & Units 04/06/2022 01/20/2021 01/18/2021 09/28/2019 SODIUM 136 - 144 mmol/L - 136 139 136 POTASSIUM 3.7 - 5.1 mmol/L - 4.1 3.4(L) 4.1 CHLORIDE 97 - 105 mmol/L - 99 103 100 CO2 22 - 30 mmol/L - 24 21(L) 23 GLUCOSE 74 - 99 mg/dL - 94 107(H) 94 BUN 7 - 21 mg/dL - 19 11 14 CREATININE 0.58 - 0.96 mg/dL 0.75 0.78 0.79 0.84 CALCIUM, TOTAL 8.5 - 10.2 mg/dL - 9.4 9.1 9.6 AST 13 - 35 U/L 21 - 39(H) - ALT 7 - 38 U/L 24 - 35 - ALKALINE PHOSPHATASE 34 - 123 U/L - - 51 - ESR, WSR Latest Ref Rng & Units 04/06/2022 07/11/2020 12/21/2002 WSR 0 - 20 mm/hr 15 7 16 CRP Latest Ref Rng & Units 07/11/2020 12/21/2002 CRP <0.9 mg/dL <0.3 0.9 CK Latest Ref Rng & Units 12/21/2002 CK 30 - 220 U/L 76 Hepatitis Screen Latest Ref Rng & Units 04/06/2022 HBSAG Negative Negative TB Screen 04/06/2022 TBGINT Infection with M. tuberculosis complex is unlikely. If latent tuberculosis infection is highly suspected, a negative result does not rule out the infection. Specimens from immunocompromised patients and those <5 years of age may show false negative results. In case of a contact investigation, please repeat 8-12 weeks after a known exposure. TBGRES Negative Antibodies Latest Ref Rng & Units 01/18/2021 07/11/2020 01/30/2003 CHERIE BY EIA OD Ratio - 0.4 0.6 CHERIE BY EIA, QUAL Negative - Negative - MINE MOTOR OPERATOR ANTIBODY <1.0 AI - <0.2 - SSA ANTIBODY <1.0 AI - <0.2 - SSB ANTIBODY <1.0 AI - <0.2 - SOHA-1 ANTIBODY, IGG <1.0 AI - <0.2 - RIBOSOMAL MINE MOTOR OPERATOR <1.0 AI - <0.2 - SM ANTIBODY <1.0 AI - <0.2 - SCLERODERMA AB, IGG <1.0 AI - <0.2 - CENTROMERE AB <1.0 AI - <0.2 - CHROMATIN ANTIBODY <1.0 AI - 0.2 - PT SEC 9.7 - 13.0 sec 10.3 - - PT INR 0.9 - 1.3 1.0 - - PTT 23.0 - 32.4 sec 24.2 - - Imaging Last XR Hand/Finger - Impression Only No resulted procedures found. Last MRI Hand - Impression Only No resulted procedures found. Last XR Chest - Impression Only XR CHEST 1V FRONTAL PORT Exam End: 12/30/2018 12:50 PM (Final result) Impression: IMPRESSION: No infiltrate. ... Last XR Cervical Spine - Impression Only No resulted procedures found. Health Maintenance Current Immunizations Reviewed on 04/06/2022 Name Date COVID-19 vaccine, monovalent (MODERNA) 08/22/2020 , 07/23/2020 pneumococcal (PCV20) vaccine 08/20/2021 Physical Exam GENERAL APPEARANCE: Well groomed. Alert and oriented x 3. In no distress. VITAL SIGNS: BP 139/68 Pulse 66 SKIN: No rash, thickening, nodules, discoloration. EYES: PERRL, EOMI. No inflammation seen. HENT: External examination and palpation of the ears and nose normal. Lips, teeth, and gums normal.Oropharynx and tongue normal. No lesions or exudate. NECK: No mass or asymmetry. RESPIRATORY: Normal respiratory effort. Clear to auscultation and percussion. CARDIOVASCULAR: Heart RRR without gallop, murmur, or rub. No bruits across chest or neck. EXTREMITIES: Normal and equal pulses in all 4 extremities. No edema. ABDOMEN: BS normal. No bruits, No tenderness, mass, or hepatosplenomegaly. NEUROLOGIC: Sensory exam normal. MUSCULOSKELETAL EXAMINATION: Soft tissue tender points: None Motor exam: Normal 5+/5+ muscle strength. Normal bulk and tone. Cervical spine: No visible abnormalities. Full ROM. No tenderness to palpation. Thoracic spine: No visible abnormalities. No tenderness to palpation. Lumbar spine: No visible abnormalities. Full ROM. No tenderness to palpation. Joint Exam 06/28/2022 Right Left Knee Swollen The following joints were examined and normal: Left Sternoclavicular, Right Sternoclavicular, Left Acromioclavicular, Right Acromioclavicular, Left Glenohumeral, Right Glenohumeral, Left Elbow, Right Elbow, Left Wrist, Right Wrist, Left MCP 1, Right MCP 1, Left MCP 2, Right MCP 2, Left MCP 3, Right MCP 3, Left MCP 4, Right MCP 4, Left MCP 5, Right MCP 5, Left IP, Right IP, Left PIP 2, Right PIP 2, Left PIP 3, Right PIP 3, Left PIP 4, Right PIP 4, Left PIP 5, Right PIP 5, Left Knee, Left Ankle, Right Ankle, Left MTP 1, Right MTP 1, Left MTP 2, Right MTP 2, Left MTP 3, Right MTP 3, Left MTP 4, Right MTP 4, Left MTP 5, Right MTP 5 Joint Exam Data (across time) Joint Exam 06/28/2022 04/06/2022 Total Tender 0 11 Total Swollen 1 2 Impression Diagnoses: (M05.79) Rheumatoid arthritis involving multiple sites with positive rheumatoid factor (HCC) (primary encounter diagnosis) (Z79.899) High risk medication use (Z86.69) H/O iritis Plan Orders this visit: Office Visit on 06/28/22 CBC + DIFF ALT/SGPT AST/SGOT BLD SED RATE WESTERGREN CREATININE BLD hydrOXYchloroQUINE (PLAQUENIL) 200 mg tablet Discussed current status of her rheumatoid arthritis is stable on Rinvoq 15 mg orally once daily and Plaquenil 400 mg daily. I refilled her Plaquenil for a 90- day supply and 1 additional refill. I reviewed her previous labs and these were stable we will monitor labs for her Rinvoq every 3 to 6 months. We will maintain the Rinvoq and Plaquenil combination therapy for the foreseeable future. Discuss ed her eye status is quite stable. We discussed that if the eyes would recur with a flareup we would approach her with oral prednisone and treated as a flareup before giving consideration to he had another DMARD in combination with the Rinvoq. Return in about 7 months (around 01/28/2023). I spent a total of 32 minutes on the date of the service which included preparing to see the patient, [id number] patient care, completing clinical documentation, obtaining and/or reviewing separately obtained history, performing a medically appropriate examination, counseling and educating the pat ient/family/caregiver, ordering medications, tests, or procedures, independently interpreting results (not separately reported), and communicating results to the patient/family/caregiver. Medical Decision Making: Problems: Moderate: 2+ stable chronic illnesses Data: Unique test result(s) reviewed: 3+ Unique test(s) ordered: 3+ Risk: High: High risk from testing/treatment Medical Decision Making Level: 4 - Moderate Chris No MD Rheumatology Date: June 28, 2022 Time: 4:06 PM documented in [facility] Miscellaneous Notes* Telephone Encounter - Lin Georgia - 04/19/2022 9:45 AM EST The pharmacy had to be switched. Please approve documented in this encounterJoint [facility] History of Present illness Narrative* Chris No MD - 04/06/2022 2:44 PM EST Images from the original note were not included. Rheumatology Outpatient Clinic Date of Service: 04/06/2022 Patient: Caty Hills Medical Record: [id number] Primary Care Physician: Anibal Juan DO Last Rhe[facility] visit: [facility] Referring Provider: No referring provider defined for this encounter. History of Present Illness Caty Hills is a 61 year old White female who presents on 04/06/2022 for an in-person visit for evaluation of Rheumatoid Arthritis. Her most recent CHERIE was negative (07/11/2020). HISTORY OF PRESENT ILLNESS This patient is known to me from my previous practice with [facility] with diagnosis of rheumatoid arthritis. This patient has been on DMARD therapy in the past with methotrexate and has not tolerated it well. She had been on a sequence of Biologics and when last seen in May 2021 wason Rinvoq 15 mg daily and doing well. Then in June 2021 that she developed a bout of iritis. She was being seen by a different real estate specialist with [facility] and switch her off of Rinvoq and placed her on Humira for the iritis. The patient has tolerated the Humira and it is improved her iritis. She has not needed to be on topical steroid treatment for her eyes in several months now. She does get some breakthrough discomfort in her eyes but no full-blown iritis. Where is a bigger problem is off of the Rinvoq she is had escalation of rheumatoid arthritis activity in her hands, wrists, shoulders, right knee and toes despite being on the Humira. Her other real estate specialist is even attempted to place methotrexate in combination with the Humira and this did not improve her rheumatoid arthritis and she felt ill on the methotrexate and has discontinued it. She was inquiring as to whether or not she would be allowed to go back onto the Rinvoq. Aside from the iritis she has not experienced any other extra- articular manifestations of rheumatoid arthritis. She shares with me that she had her right knee replaced 3 months ago and it is not doing as well as the left knee did from 2-1/2 years ago. The right knee remains quite swollen and painful and she believes the rheumatoid arthritismay be contributing to the right knee pain. Patient-Entered Data PAIN EVALUATION 04/06/2022 1448 Pain Level: 3 Pain Location: -- knees, hips, feet. hands, and low back PROMIS Assessments RAPID 3 Clancy Activities of Daily Living No Data Dress self? - Get in and out of bed? - Walk outdoors? - Wash and dry body? - Get in and out of car? - RAPID 3 Disease Activity Weighed Score Levels: 0 - 1: Near Remission 1.3 - 2.0: Low Severity 2.3 - 4.0: Moderate Severity 4.3 - 10.0: High Severity Review of Systems Review of Systems CONSTITUTION: Negative for: Weight loss or gain, Fever. Chills, Night sweats HEENT: Negative for: Nosebleeds, Mouth sores, Trouble swallowing, Dry mouth RESPIRATORY: Negative for: Cough, Shortness of breath, Pain with breathing, Coughing up blood GASTROINTESTINAL: Negative for: Melena, Diarrhea, Abdominal pain, Heartburn, MUSCULOSKELETAL: Positive for: Arthralgias, Joint swelling and Morning Joint Stiffness Negative for: Myalgias and Muscle weakness NEUROLOGICAL: Negative for: Headaches, Numbness, Memory loss, SKIN: Negative for: Rashes, Sun sensitive rashes, Skin color changes, Hair loss, Nail changes EYES: Positive for: Visual disturbance Negative for: Eye pain, Eye redness and Eye dryness CARDIOVASCULAR: Negative for: Chest pain, Leg swelling, Arrhythmia, Presyncope GENITOURINARY: Negative for: Dysuria, Hematuria, Ulceration HEMATOLOGIC/LYMPHATIC: Negative for: Swollen glandsAll other reviewed and negative other than HPI. Past Medical History PAST MEDICAL HISTORY Diagnosis Date Anxiety Class 2 obesity in adult Heart palpitations Hypertension Hypokalemia NONE Rheumatoid arthritis (HCC) Seizure-like activity (HCC) SVT (supraventricular tachycardia) (HCC) Traumatic brain injury slipped on ice and hit head on concrete and passed out for 2 min in 2009 Past Surgical History PAST SURGICAL HISTORY Procedure Laterality Date ANESTHESIA VAGINAL HYSTERECTOMY INCL BIOPSY 1996 ENDOMETRIOSIS, PAIN , CYSTS BACK SURGERY HX 2014 spinal fusion with screws CARPAL TUNNEL RIGHT WRIST 1996 RIGHT AND LEFT WRIST CONIZATION CERVIX W/WO D&C RPR KNIFE/LASER 1994 DYSPLASIA DILATION & CURETTAGE DX&/THER NONOBSTETRIC Dilation & curettage DILATION & CURETTAGE DX&/THER NONOBSTETRIC Dilation & curettage KNEE SURGERY HX PAST SURGICAL HISTORY OF 1978 REMOVAL OF BENIGN CYST RIGHT NECK Family History FAMILY HISTORY Problem Relation Age of Onset Thyroid Mother Coronary Artery Disease Mother Arthritis Mother Asthma Mother Hypertension Mother Cancer Mother Arrythmias Mother Afib Heart Failure Mother CHF-cause of Stroke Mother Diabetes Mother Cancer Father testicular cancer Heart disease Half-sister Thyroid Brother Hypertension Brother Heart disease Maternal Grandmother Heart disease Maternal Grandfather Cancer Paternal Grandmother bone Breast Cancer Paternal Grandmother Heart disease Paternal Grandfather Mental illness Daughter Multiple Sclerosis Son Schizophrenia Paternal Aunt Social History Social History Tobacco Use Smoking status: Former Packs/day: 0.50 Years: 20.00 Pack years: 10.00 Types: Cigarettes Quit date: 09/19/2000 Years since quittin.5 Smokeless tobacco: Never Vaping Use Vaping Use: Never used Substance Use Topics Alcohol use: Yes Comment: social Drug use: No Current Medications Current Outpatient Medications Medication Sig Valsartan-hydroCHLOROthiazide 160-25 mg per tablet Take 1 tablet by mouth once daily. escitalopram oxalate (LEXAPRO) 20 mg tablet Take 20 mg by mouth daily at bedtime. QUEtiapine (SEROQUEL) 25 mg tablet Take 25 mg by mouth at bedtime as needed. Take 1-2 tabs as needed for sleep plecanatide (TRULANCE) 3 mg tablet Take 3 mg by mouth daily at bedtime. Nadbbkdaahhzw-Epkncqrk-Fhengb (MULTIVITAMIN 50 PLUS) tab Take 1 tablet by mouth once daily. pantoprazole DR (PROTONIX) 40 mg tablet Take 40 mg by mouth once daily. hydroxychloroquine (PLAQUENIL) 200 mg tablet Take 300 mg by mouth once daily. upadacitinib (RINVOQ) Tb24 tablet Take 1 tablet (15 mg) by mouth once daily. Swallow whole; DO NOT crush, chew, or open. No current facility-administered medications for this visit. Last Ophthalmology Check for Plaquenil (Hydroxychloroquine) Last OCT Macula Exam No resulted procedures found. Last Visual Field Exam No resulted procedures found. Labs CBC Latest Ref Rng & Units 01/18/2021 12/30/2018 12/21/2002 WBC 3.70 - 11.00 k/uL 4.34 10.21 10.18 HEMOGLOBIN 11.5 - 15.5 g/dL 12.1 13.5 13.4 HEMATOCRIT 36.0 - 46.0 % 35.9(L) 41.1 39.9 PLATELETS 150 - 400 k/uL 178 256 220 ABS NEUT (ANC) 1.45 - 7.50 k/uL 0.83(L) 3.88 5.19 ABS LYM 1.0 - 4.0 k/uL - - 3.97 ABS LYMPH 1.00 - 4.00 k/uL 2.53 5.31(H) - CMP Latest Ref Rng & Units 01/20/2021 01/18/2021 09/28/2019 12/30/2018 SODIUM 136 - 144 mmol/L 136 139 136 139 POTASSIUM 3.7 - 5.1 mmol/L 4.1 3.4(L) 4.1 4.0 CHLORIDE 97 - 105 mmol/L 99 103 100 102 CO2 22 - 30 mmol/L 24 21(L) 23 24 GLUCOSE 74 - 99 mg/dL 94 107(H) 94 92 BUN 7 - 21 mg/dL 19 11 14 28(H) CREATININE 0.58 - 0.96 mg/dL 0.78 0.79 0.84 1.23(H) CALCIUM, TOTAL 8.5 - 10.2 mg/dL 9.4 9.1 9.6 9.3 AST 13 - 35 U/L - 39(H) - - ALT 7 - 38 U/L - 35 - - ALKALINE PHOSPHATASE 34 - 123 U/L - 51 - - ESR, WSR Latest Ref Rng & Units 07/11/2020 12/21/2002 WSR 0 - 20 mm/hr 7 16 CRP Latest Ref Rng & Units 07/11/2020 12/21/2002 CRP <0.9 mg/dL <0.3 0.9 CK Latest Ref Rng & Units 12/21/2002 CK 30 - 220 U/L 76 Antibodies Latest Ref Rng & Units 01/18/2021 07/11/2020 01/30/2003 CHERIE BY EIA OD Ratio - 0.4 0.6 CHERIE BY EIA, QUAL Negative - Negative - MINE MOTOR OPERATOR ANTIBODY <1.0 AI - <0.2 - SSA ANTIBODY <1.0 AI - <0.2 - SSB ANTIBODY <1.0 AI - <0.2 - SOHA-1 ANTIBODY, IGG <1.0 AI - <0.2 - RIBOSOMAL MINE MOTOR OPERATOR <1.0 AI - <0.2 - SM ANTIBODY <1.0 AI - <0.2 - SCLERODERMA AB, IGG <1.0 AI - <0.2 - CENTROMERE AB <1.0 AI - <0.2 - CHROMATIN ANTIBODY <1.0 AI - 0.2 - PT SEC 9.7 - 13.0 sec 10.3 - - PT INR 0.9 - 1.3 1.0 - - PTT 23.0 - 32.4 sec 24.2 - - Imaging Last XR Hand/Finger - Impression Only No resulted procedures found. Last MRI Hand - Impression Only No resulted procedures found. Last XR Chest - Impression Only XR CHEST 1V FRONTAL PORT Exam End: 12/30/2018 12:50 PM (Final result) Impression: IMPRESSION: No infiltrate. ... Last XR Cervical Spine - Impression Only No resulted procedures found. Health Maintenance Current Immunizations Reviewed on 04/06/2022 Name Date COVID-19 vaccine, monovalent (MODERNA) 08/22/2020 , 07/23/2020 pneumococcal (PCV20) vaccine 08/20/2021 Physical Exam GENERAL APPEARANCE: Well groomed. Alert and oriented x 3. In no distress. VITAL SIGNS: BP 130/71 Pulse 81 Temp (Src) 98.5 (Temporal) Ht 5' 7 (1.70m) Wt 229 lb 4.8 oz (104.0kg) BMI 35.91 kg/(m^2). SKIN: No rash, thickening, nodules, discoloration. EYES: PERRL, EOMI. No inflammation seen. HENT: External examination and palpation of the ears and nose normal. Lips, teeth, and gums normal.Oropharynx and tongue normal. No lesions or exudate. NECK: No mass or asymmetry. RESPIRATORY: Normal respiratory effort. Clear to auscultation and percussion. CARDIOVASCULAR: Heart RRR without gallop, murmur, or rub. No bruits across chest or neck. EXTREMITIES: Normal and equal pulses in all 4 extremities. No edema. ABDOMEN: BS normal. No bruits, No tenderness, mass, or hepatosplenomegaly. NEUROLOGIC: Sensory exam normal. MUSCULOSKELETAL EXAMINATION: Soft tissue tender points: None Motor exam: Normal 5+/5+ muscle strength. Normal bulk and tone. Cervical spine: No visible abnormalities. Full ROM. No tenderness to palpation. Thoracic spine: No visible abnormalities. No tenderness to palpation. Lumbar spine: No visible abnormalities. Full ROM. No tenderness to palpation. Joint Exam 04/06/2022 Right Left Glenohumeral Tender Tender Wrist Swollen Tender Tender MCP 1 Tender Tender MCP 2 Tender Tender MCP 3 Tender MCP 4 Tender Knee Swollen Tender MTP 1 Tender Tender MTP 2 Tender Tender The following joints were examined and normal: Left Sternoclavicular, Right Sternoclavicular, Left Acromioclavicular, Right Acromioclavicular, Left Elbow, Right Elbow, Left MCP 3, Left MCP 4, Left MCP 5, Right MCP 5, Left IP, Right IP, Left PIP 2, Right PIP 2, Left PIP 3, Right PIP 3, Left PIP 4, Right PIP 4, Left PIP 5, Right PIP 5, Left Knee,Left Ankle, Right Ankle, Left MTP 3, Right MTP 3, Left MTP 4, Right MTP 4, Left MTP 5, Right MTP 5 Joint Exam Data (across time) Joint Exam 04/06/2022 Total Tender 11 Total Swollen 2 Impression Diagnoses: (M05.79) Rheumatoid arthritis involving multiple sites with positive rheumatoid factor (HCC) (primary encounter diagnosis) (Z79.899) High risk medication use (M25.561, G89.29) Chronic pain of right knee (Z86.69) H/O iritis Plan Orders this visit: Office Visit on 04/06/22 CBC + DIFF ALT/SGPT AST/SGOT BLD SED RATE WESTERGREN CREATININE BLD HEP B SURF AG SCRN BLOOD TB SCREEN adalimumab 40 mg/0.4 mL subcutaneous pen kit (HUMIRA (CF)) *Discontinued* upadacitinib (RINVOQ) Tb24 tablet Discussed the current status of her rheumatoid arthritis as active in regards to the arthritis being more active on Humira therapy. Her iritis remains stable. Her right knee remains active postop 3 months after knee replacement. Although Rinvoq is not approved specifically for iritis it should havesome ability to control the iritis. Presently I am more concerned about who arthritis which is active flare and progressing on the Humira. I recommend she discontinue the Humira and begin Rinvoq 15 mg orally once each day. New prescription for 30 tablets and 5 additional refills was sent in. We will rescreen for hepatitis B and TB along with routine labs to monitor Humira transition to Rinvoq. I d iscussed that if the patient would begin to experience breakthrough iritis on the Rinvoq temporarily we would have her see ophthalmology for topical steroid eye treatment. Depending on the intensity and frequency of iritis if it returns will merit further consideration of either adding DMARD such as leflunomide to the Rinvoq or reconsideration of Humira plus leflunomide going forward. Return in about 12 weeks (around 06/29/2022). I spent a total of 46 minutes on the date of the service which included preparing to see the patient, [id number] patient care, completing clinical documentation, obtaining and/or reviewing separately obtained history, performing a medically appropriate examination, counseling and educating the pat ient/family/caregiver, and ordering medications, tests, or procedures. Medical Decision Making: Problems: Moderate: 1+ chronic illnesses with change Data: Unique test(s) ordered: 3+ Risk: High: High risk from testing/treatment Medical Decision Making Level: 4 - Moderate Chris No MD Rheumatology Date: April 06, 2022 Time: 3:30 PM documented in this encounterJoint [facility] History of Present illness Narrative* Narcisa Brooke RN - 12/25/2021 4:30 PM EDT Patient wanted this nurse to call her surgeon due to her concerns for pain to lateral R knee and numbness in R calf, s/p TKA performed by Dr Raya Lamb. mail caller Dr Frost returned call and reassured patient that these symptoms are normal and she is okay to d/c home. She should f/u in office with Dr Lamb as scheduled, call office if symptoms become worse. No swelling, redness, or unusualwarmth noted. No strike-through drainage noted on dressing. Explained the above to patient and she verbalized understanding, was grateful for the call back from physician. * Shai Christian PTA - 12/25/2021 1:53 PM EDT Physical Therapy Med Surg Daily Treatment Note Facility/Department: [address] TELE Room: [facility]/[place] [address] NAME: Caty Hills : 1960 (61 y.o.) CODE STATUS: Full Code Date of Service: 12/25/2021 Patient Diagnosis(es): Primary osteoarthritis of right knee [M17.11] Status post total knee replacement, right [Z96.651] No chief complaint on file. Patient Active Problem List Diagnosis Date Noted Status post total knee replacement, right 12/24/2021 Osteoarthritis of left knee 11/09/2019 Gastroesophageal reflux disease 11/09/2019 Depression 11/09/2019 Tear of lateral meniscus of left knee 02/22/2018 Tear of medial meniscus of left knee 02/22/2018 Rheumatoid arthritis (HCC) 02/22/2018 DDD (degenerative disc disease), lumbar 01/08/2013 Past Medical History: Diagnosis Date Back pain, chronic Degenerative disc disease Fibromyalgia Hypertension meds since 2016 Leg pain, left Nausea & vomiting Numbness and tingling of left leg PONV (postoperative nausea and vomiting) Wears glasses Past Surgical History: Procedure Laterality Date BACK SURGERY 01/08/13 lumbar fusion [id number] CARPAL TUNNEL RELEASE Bilateral 1990s CHOLECYSTECTOMY 2016 COLONOSCOPY CYST REMOVAL neck / benign ENDOSCOPY, COLON, DIAGNOSTIC HYSTERECTOMY (CERVIX STATUS UNKNOWN) 1996 PA ARTHRS KNE SURG W/MENISCECTOMY MED/LAT W/SHVG Left 03/02/2018 LEFT KNEE ARTHROSCOPIC MEDIAL AND LATERAL MENISCECTOMY KNEE [facility] TOTAL KNEE ARTHROPLASTY Left 11/15/2019 LEFT KNEE TOTAL KNEE REPLACEMENT HONEY SPINAL, NERVE BLOCK performed by Rodney Lamb MD at [facility] OR Chart Reviewed: Yes Family / Caregiver Present: No Restrictions: Restrictions/Precautions: Fall Risk;Weight Bearing Lower Extremity Weight Bearing Restrictions Right Lower Extremity Weight Bearing: Weight Bearing As Tolerated Position Activity Restriction Other position/activity restrictions: Knee immobilizer until + SLR SUBJECTIVE: Subjective: I am not doing great but I will try. Pain 09/11 pre and post tx OBJECTIVE: Bed mobility Supine to Sit: Stand by assistance Sit to Supine: Stand by assistance Bed Mobility Comments: HOB slightly elevated. Safe sequencing with RLE Transfers Sit to Stand: Stand by assistance Stand to sit: Stand by assistance Comment: Good technique and proper safety with RLE in immobilizer. Ambulation Surface: level tile Device: Rolling Walker Other Apparatus: Knee Immobilizer;Right Assistance: Stand by assistance Quality of Gait: step to progressing to step through, antalgic pattern Gait Deviations: Slow Anushka;Decreased step length;Decreased step height Distance: 30ft x 2 Comments: VC for step through technique with ambulation. Good Follow through, heavy UE use on ww PT Exercises PROM Exercises: pt unable to SLR. A/AROM Exercises: supine AP/QS/GS/HS x 10 Activity Tolerance Activity Tolerance: Patient limited by pain ASSESSMENT Assessment: Patient limited by pain but motivated to improve and attempt OOB activity. Patient ableto self assist RLE into and out of bed with knee immobilizer. Progressed from step to pattern to step through pattern, displaying increased difficulty. Discharge Recommendations: Continue to assess pending progress Goals Freight Clerk Goals USP goal 1: Bed mobility with indep USP goal 2: Functional transfers with indep USP goal 3: Amb 50ft with 2ww and indep intermediate accountant goal 4: Pt will negotiate 4 steps with handrail and AD with SBA intermediate accountant goal 5: Pt will be indep with HEP to improve LE strength, ROM, and activity tolerance Patient Goals Patient goals : to go home PLAN Plan: 2 times a day 7 days a week Safety Devices Type of Devices: All fall risk precautions in place, Bed alarm in place, Call light within reach, Left in bed [facility] (6 CLICK) BASIC MOBILITY AM-PAC Inpatient Mobility Raw Score : 18 Therapy Time Individual Time In 1327 Time Out 1345 Minutes 18 TherEX: 5 Gait: 9 Tr/Bm: 4 Shai Christian PTA, 12/25/21 at 1:54 PM Definitions for assistance levels Independent = pt does not require any physical supervision or assistance from another person for activity completion. Device may be needed. Stand by assistance = pt requires verbal cues or instructions from another person, close to but nottouching, to perform the activity Minimal assistance= pt performs 75% or more of the activity; assistance is required to complete theactivity Moderate assistance= pt performs 50% of the activity; assistance is required to complete the activity Maximal assistance = pt performs 25% of the activity; assistance is required to complete the activity Dependent = pt requires total physical assistance to accomplish the task * Delicia Phillips, ENGINEERING PATTERNMAKER - 12/25/2021 11:41 AM EDT [facility] OCCUPATIONAL THERAPY MED SURG TREATMENT NOTE Date: 12/25/2021 Patient Name: Caty Hills Account: [id number] : 1960 (61 y.o.) Room: [place] [address] Chart Review: Restrictions Restrictions/Precautions Restrictions/Precautions: Fall Risk, Weight Bearing Lower Extremity Weight Bearing Restrictions Right Lower Extremity Weight Bearing: Weight Bearing As Tolerated Position Activity Restriction Other position/activity restrictions: Knee immobilizer until + SLR Pt unable to perform +SLR. KI utilized during session. Safety: Safety Devices Type of Devices: All fall risk precautions in place;Bed alarm in place;Call light within reach;Leftin bed Patient's birthday verified: Yes Subjective: Thank you for the laugh. Pain at start of treatment: Yes: 5/10 Pain at end of treatment: Yes: 5/10 Location: Right Knee Nursing notified: Declined Intervention: Cold applied Pt reports that she had pain medication. Cold applied to right knee at end of session. Objective: Pt completed ADLs as follows. ADL Status: Grooming: Supervision Grooming Skilled Clinical Factors: To complete oral care, hair care, hand hygiene, and wash face while standing at sink UE Dressing: Unable to assess UE Dressing Skilled Clinical Factors: Hospital gown only LE Dressing: Moderate assistance LE Dressing Skilled Clinical Factors: To don bilateral socks and don underwear. Pt able to bend down with increased time and effort in order to don underwear past feet. Pt required assistance to don bilateral socks. Pain is limiting during dressing. Toileting: Stand by assistance Bed Mobility Supine to Sit: Stand by assistance Sit to Supine: Stand by assistance Bed Mobility Comments: HOB flat. Use of bed rails. Increased time and effort Transfers: Sit to stand: Supervision Stand to sit: Supervision Toilet Transfers Toilet - Technique: Ambulating Equipment Used: Grab bars Toilet Transfer: Stand by assistance Functional Mobility: Device: FWW Activity: To/From Bathroom Assistance Level: SBA/Supervision Therapy clancy for assistance levels - Independent/Mod I = Pt. is able to perform task with no assistance but may require a device Stand by assistance = Pt. does not perform task at an independent level but does not need physical assistance, requires verbal cues Minimal, Moderate, Maximal Assistance = Pt. requires physical assistance (25%, 50%, 75% assist fromhelper) for task but is able to actively participate in task Dependent = Pt. requires total assistance with task and is not able to actively participate with task completion Cognition Status: Cognition Overall Cognitive Status: WFL Functional Endurance: Activity Tolerance Activity Tolerance: Patient limited by pain Treatment consisted of: ADL training Assessment/Discharge Disposition: Pt limited by significant pain with pt tearful at times during transfers. Pt would benefit from continued Occupational Therapy to increase activity tolerance, [place] with functional transfers, and [place] with ADL/IADL completion. [employer] How much help for putting on and taking off regular lower body clothing?: A Lot How much help for Bathing?: A Little How much help for Toileting?: A Little How much help for putting on and taking off regular upper body clothing?: A Little How much help for taking care of personal grooming?: A Little How much help for eating meals?: None AM-PAC Inpatient Daily Activity Raw Score: 18 AM-PAC Inpatient ADL T-Scale Score : 38.66 ADL Inpatient CMS 0-100% Score: 46.65 ADL Inpatient CMS G-Code Modifier : CK Plan: Continue OT per POC Equipment recommendations: Continue to assess pending progress. Pt reports that she did not use dressing equipment with previous knee surgery. Goals/Plan of care addressed during this session: Patient Goal: Patient goals : I want to get home Improve [place] with ADLs and Improve [place] with Functional Transfers Therapy Time: Individual Group Co-Treat Time In 1110 Time Out 1135 Minutes 25 ADL/IADL trainin minutes Electronically signed by: FAVIO Cisneros 12/25/2021, 11:52 AM * Anibal Branch, ERIC - 12/25/2021 9:11 AM EDT Physical Therapy Med Surg Daily Treatment Note Facility/Department: [address] Room: [place] [address] NAME: Caty Hills : 1960 (61 y.o.) CODE STATUS: Full Code Date of Service: 12/25/2021 Patient Diagnosis(es): Primary osteoarthritis of right knee [M17.11] Status post total knee replacement, right [Z96.651] No chief complaint on file. Patient Active Problem List Diagnosis Date Noted Status post total knee replacement, right 12/24/2021 Osteoarthritis of left knee 11/09/2019 Gastroesophageal reflux disease 11/09/2019 Depression 11/09/2019 Tear of lateral meniscus of left knee 02/22/2018 Tear of medial meniscus of left knee 02/22/2018 Rheumatoid arthritis (HCC) 02/22/2018 DDD (degenerative disc disease), lumbar 01/08/2013 Past Medical History: Diagnosis Date Back pain, chronic Degenerative disc disease Fibromyalgia Hypertension meds since 2016 Leg pain, left Nausea & vomiting Numbness and tingling of left leg PONV (postoperative nausea and vomiting) Wears glasses Past Surgical History: Procedure Laterality Date BACK SURGERY 01/08/13 lumbar fusion l5-s1 CARPAL TUNNEL RELEASE Bilateral 1990s CHOLECYSTECTOMY 2016 COLONOSCOPY CYST REMOVAL neck / benign ENDOSCOPY, COLON, DIAGNOSTIC HYSTERECTOMY (CERVIX STATUS UNKNOWN) 1996 [place] [facility] KNE SURG W/MENISCECTOMY MED/LAT W/SHVG Left 03/02/2018 LEFT KNEE ARTHROSCOPIC MEDIAL AND LATERAL MENISCECTOMY KNEE performed by [facility] TOTAL KNEE ARTHROPLASTY Left 11/15/2019 LEFT KNEE TOTAL KNEE REPLACEMENT HONEY SPINAL, NERVE BLOCK performed by Rodney Lamb MD at [facility] OR Chart Reviewed: Yes Family / Caregiver Present: No Restrictions: Restrictions/Precautions: Fall Risk;Weight Bearing Lower Extremity Weight Bearing Restrictions Right Lower Extremity Weight Bearing: Weight Bearing As Tolerated Position Activity Restriction Other position/activity restrictions: Knee immobilizer until + SLR SUBJECTIVE: Subjective: I am not doing good this morning. Pain Pain: 8/10 R knee. OBJECTIVE: Bed mobility Supine to Sit: Supervision Sit to Supine: Supervision Bed Mobility Comments: pt comes into long sitting. good technique. Transfers Comment: not attempted d/t nausea. PT Exercises Exercise Treatment: written HEP given for supine/seated therex, instructed on technique dosage and frequency of all exercises, pt verbalizes understanding. PROM Exercises: pt unable to SLR. A/AROM Exercises: supine AP/QS/GS/HS x 10 Activity Tolerance Activity Tolerance: Treatment limited secondary to medical complications Activity Tolerance Comments: limited by nausea and pain. ASSESSMENT Assessment: pt limited by pain and nausea, unwilling to attempt OOB activity this session but is agreeable to attempt in PM session. Discharge Recommendations: Continue to assess pending progress Goals Intermediate Goals intermediate accountant goal 1: Bed mobility with indep intermediate accountant goal 2: Functional transfers with indep USP goal 3: Amb 50ft with 2ww and indep intermediate accountant goal 4: Pt will negotiate 4 steps with handrail and AD with SBA intermediate accountant goal 5: Pt will be indep with HEP to improve LE strength, ROM, and activity tolerance Patient Goals Patient goals : to go home PLAN Plan: 2 times a day 7 days a week Safety Devices Type of Devices: All fall risk precautions in place, Call light within reach, Left in bed, Bed alarm in place AMPAC (6 CLICK) BASIC MOBILITY AM-PAC Inpatient Mobility Raw Score : 18 Therapy Time Individual Time In 0835 Time Out 0847 Minutes 12 Therex: 8 BM: 4 Anibal Branch PTA, 12/25/21 at 9:11 AM Definitions for assistance levels Independent = pt does not require any physical supervision or assistance from another person for activity completion. Device may be needed. Stand by assistance = pt requires verbal cues or instructions from another person, close to but nottouching, to perform the activity Minimal assistance= pt performs 75% or more of the activity; assistance is required to complete theactivity Moderate assistance= pt performs 50% of the activity; assistance is required to complete the activity Maximal assistance = pt performs 25% of the activity; assistance is required to complete the activity Dependent = pt requires total physical assistance to accomplish the task * Rufina Angelo RN - 12/25/2021 6:20 AM EDT Adam wrap and guaze cut off. Dressing is clean dry and intact. Pt had a thigh high reilly hose on underthe guaze wrap. C/o tightness on thigh. Reilly hose removed and pneumatic stocking placed for patient comfort. Explained to patient that Reilly hose would be put back on in a few hours. Pt satisfied. * Yuniel Flores MD - 12/25/2021 6:00 AM EDT Progress Note Patient: Caty Hills Unit/Bed: 66/W266-01 Date of : 1960 Acct: [id number] Admitting Diagnosis: Primary osteoarthritis of right knee [M17.11] Status post total knee replacement, right [Z96.651] Date: 12/24/2021 Hospital Day: 0 Chief Complaint: No issues overnight. Pain controlled Physical Examination: BP (!) 149/71 Pulse 72 Temp 99 F (37.2 C) (Oral) Resp 16 Ht 5' 6 (1.676 m) Wt 244 lb 14.4 oz (111.1 kg) SpO2 94% BMI 39.53 kg/m Physical Exam General NAD/Aox3 Dressing C/D/I. Wiggles toes. +Paplable DP pulse. SILT foot. LABS: CBC: Lab Results Component Value Date/Time WBC 5.8 12/25/2021 05:04 AM RBC 3.60 12/25/2021 05:04 AM HGB 11.0 12/25/2021 05:04 AM HCT 32.8 12/25/2021 05:04 AM MCV 91.2 12/25/2021 05:04 AM MCH 30.7 12/25/2021 05:04 AM MCHC 33.6 12/25/2021 05:04 AM RDW 13.7 12/25/2021 05:04 AM PLT 156 12/25/2021 05:04 AM MPV 8.8 12/21/2012 03:12 PM CBC with Differential: Lab Results Component Value Date/Time WBC 5.8 12/25/2021 05:04 AM RBC 3.60 12/25/2021 05:04 AM HGB 11.0 12/25/2021 05:04 AM HCT 32.8 12/25/2021 05:04 AM PLT 156 12/25/2021 05:04 AM MCV 91.2 12/25/2021 05:04 AM MCH 30.7 12/25/2021 05:04 AM MCHC 33.6 12/25/2021 05:04 AM RDW 13.7 12/25/2021 05:04 AM LYMPHOPCT 44.7 12/17/2021 03:50 PM MONOPCT 11.0 12/17/2021 03:50 PM BASOPCT 0.6 12/17/2021 03:50 PM MONOSABS 0.7 12/17/2021 03:50 PM LYMPHSABS 2.7 12/17/2021 03:50 PM EOSABS 0.2 12/17/2021 03:50 PM BASOSABS 0.0 12/17/2021 03:50 PM DIFFTYPE NOT REPORTED 12/21/2012 03:12 PM CMP: Lab Results Component Value Date/Time NA 134 12/25/2021 05:04 AM K 4.0 12/25/2021 05:04 AM CL 102 12/25/2021 05:04 AM CO2 26 12/25/2021 05:04 AM BUN 12 12/25/2021 05:04 AM CREATININE 0.61 12/25/2021 05:04 AM GFRAA >60.0 12/25/2021 05:04 AM LABGLOM >60.0 12/25/2021 05:04 AM GLUCOSE 96 12/25/2021 05:04 AM PROT 7.0 12/17/2021 03:52 PM LABALBU 4.4 12/17/2021 03:52 PM CALCIUM 8.3 12/25/2021 05:04 AM BILITOT 0.3 12/17/2021 03:52 PM ALKPHOS 64 12/17/2021 03:52 PM AST 18 12/17/2021 03:52 PM ALT 16 12/17/2021 03:52 PM BMP: Lab Results Component Value Date/Time NA 134 12/25/2021 05:04 AM K 4.0 12/25/2021 05:04 AM CL 102 12/25/2021 05:04 AM CO2 26 12/25/2021 05:04 AM BUN 12 12/25/2021 05:04 AM LABALBU 4.4 12/17/2021 03:52 PM CREATININE 0.61 12/25/2021 05:04 AM CALCIUM 8.3 12/25/2021 05:04 AM GFRAA >60.0 12/25/2021 05:04 AM LABGLOM >60.0 12/25/2021 05:04 AM GLUCOSE 96 12/25/2021 05:04 AM Magnesium: No results found for: MG Assessment: Active Hospital Problems Diagnosis Date Noted Status post total knee replacement, right [Z96.651] 12/24/2021 Priority: Medium Plan: Up with therapy today Hopeful for d/ct today vs tomorrow Doing well ASA for DVT PPX Ancef Electronically signedby Yuniel Flores MD on 12/25/2021 at 6:34 PM * Svetlana Antunez, PT - 12/24/2021 4:40 PM EDT Physical Therapy Med Surg Initial Assessment Facility/Department: [address] Room: [facility] [address] NAME: [place] : 1960 (61 y.o.) CODE STATUS: Full Code Date of Service: 12/24/2021 Patient Diagnosis(es): Primary osteoarthritis of right knee [M17.11] Status post total knee replacement, right [Z96.651] No chief complaint on file. Patient Active Problem List Diagnosis Date Noted Status post total knee replacement, right 12/24/2021 Osteoarthritis of left knee 11/09/2019 Gastroesophageal reflux disease 11/09/2019 Depression 11/09/2019 Tear of lateral meniscus of left knee 02/22/2018 Tear of medial meniscus of left knee 02/22/2018 Rheumatoid arthritis (HCC) 02/22/2018 DDD (degenerative disc disease), lumbar 01/08/2013 Past Medical History: Diagnosis Date Back pain, chronic Degenerative disc disease Fibromyalgia Hypertension meds since 2016 Leg pain, left Nausea & vomiting Numbness and tingling of left leg PONV (postoperative nausea and vomiting) Wears glasses Past Surgical History: Procedure Laterality Date BACK SURGERY 01/08/13 lumbar fusion l5-s1 CARPAL TUNNEL RELEASE Bilateral CHOLECYSTECTOMY 2015 COLONOSCOPY CYST REMOVAL neck / benign ENDOSCOPY, COLON, DIAGNOSTIC HYSTERECTOMY (CERVIX STATUS UNKNOWN) 1996 [place] KNE SURG W/MENISCECTOMY MED/LAT W/SHVG Left 03/02/2018 LEFT KNEE ARTHROSCOPIC MEDIAL AND LATERAL MENISCECTOMY KNEE performed by Rodney Lamb MD [facility] OR TOTAL KNEE ARTHROPLASTY Left 11/15/2019 LEFT KNEE TOTAL KNEE REPLACEMENT HONEY SPINAL, NERVE BLOCK performed by Rodney Lamb MD at [facility] OR Chart Reviewed: Yes Patient assessed for rehabilitation services?: Yes Family / Caregiver Present: No Restrictions: Restrictions/Precautions: Fall Risk, Weight Bearing Lower Extremity Weight Bearing Restrictions Right Lower Extremity Weight Bearing: Weight Bearing As Tolerated Position Activity Restriction Other position/activity restrictions: Knee immobilizer until + SLR SUBJECTIVE: Subjective: Pt reports minimal post op pain, 2/10 Pain Pre treatment screenin/10 OR Faces 1-10 [x] Pt declined intervention [x] Pt able to proceed PT session [] RN or physician notified [] RN called to bedside to administer meds. 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 OBJECTIVE: Vision Vision: Impaired Vision Exceptions: Wears glasses at all times Hearing: Within functional limits Cognition: Overall Orientation Status: Within Functional Limits Follows Commands: Within Functional Limits Overall Cognitive Status: WFL Observation/Palpation Posture: Good Observation: pleasant, cooperative, no acute distress, on RA, knee immobilizer adjusted for fit prior to mobility ROM: AROM: Generally decreased, functional PROM: Generally decreased, functional (R knee impaired s/p TKA grossly assessed -10-50degres flexion) Strength: Strength LLE Strength LLE: WFL Strength: Generally decreased, functional (SLR with minimal quad lag) Neuro: Balance Sitting - Static: Good Sitting - Dynamic: Good Standing - Static: Fair;+ Standing - Dynamic: Fair Tone: Normal Coordination: Within functional limits Sensation: Intact Bed mobility Supine to Sit: Supervision Sit to Supine: Supervision Transfers Sit to Stand: Stand by assistance Stand to sit: Stand by assistance Comment: with 2ww Ambulation Surface: level tile Device: Rolling Walker Other Apparatus: Knee Immobilizer;Right Assistance: Stand by assistance Quality of Gait: step to progressing to step through, antalgic pattern Gait Deviations: Slow Anushka;Decreased step length;Decreased step height Distance: 25ft x 2 Comments: VC for 2ww management in restroom environment, good return demo Activity Tolerance Activity Tolerance: Patient tolerated evaluation without incident Patient Education Education Given To: Patient Education Provided: Plan of Care;Role of Therapy;Home Exercise Program Education Provided Comments: WBAT, knee immobilizer until able to +SLR, anti embolics Education Method: Verbal Barriers to Learning: None Education Outcome: Verbalized understanding ASSESSMENT: Body Structures, Functions, Activity Limitations Requiring Skilled Therapeutic Intervention: Decreased functional mobility ;Decreased strength;Decreased ROM;Increased pain;Decreased balance Decision Making: Medium Complexity History: med Exam: med Clinical Presentation: med Therapy Prognosis: Good Barriers to Learning: none DISCHARGE RECOMMENDATIONS: Discharge Recommendations: Continue to assess pending progress Assessment: Pt demonstrates the above deficits and decline in functional mobility s/p R TKA. Pt would benefit from physical therapy to address above deficits and allow for safe return home at highestlevel of function, decrease risk for falls, and improve QOL. Requires PT Follow-Up: Yes PLAN OF CARE: Plan Plan: 2 times a day 7 days a week Current Treatment Recommendations: Strengthening, ROM, Balance training, Functional mobility training, Transfer training, Gait training, Stair training, Safety education & training, Home exerciseprogram, Equipment evaluation, education, & procurement, Patient/Caregiver education & training, Neuromuscular re-education, Modalities, Therapeutic activities Safety Devices Type of Devices: All fall risk precautions in place, Call light within reach, Left in bed, Bed alarm in place Goals: Patient goals : to go home Intermediate Goals USP goal 1: Bed mobility with indep intermediate accountant goal 2: Functional transfers with indep USP goal 3: Amb 50ft with 2ww and indep USP goal 4: Pt will negotiate 4 steps with handrail and AD with SBA USP goal 5: Pt will be indep with HEP to improve LE strength, ROM, and activity tolerance [facility] (6 CLICK) BASIC MOBILITY AM-PAC Inpatient Mobility Raw Score : 18 Therapy Time: Individual Time In 1405 Time Out 1421 Minutes 16 Svetlana Antunez PT, 12/24/21 at 4:46 PM Definitions for assistance levels Independent = pt does not require any physical supervision or assistance from another person for activity completion. Device may be needed. Stand by assistance = pt requires verbal cues or instructions from another person, close to but nottouching, to perform the activity Minimal assistance= pt performs 75% or more of the activity; assistance is required to complete theactivity Moderate assistance= pt performs 50% of the activity; assistance is required to complete the activity Maximal assistance = pt performs 25% of the activity; assistance is required to complete the activity Dependent = pt requires total physical assistance to accomplish the task * Mary Bianchi OTR/Car - 12/24/2021 3:13 PM EDT JESSIKA OLIVO OCCUPATIONAL THERAPY EVALUATION - ACUTE NAME: Caty Hills : 1960 (61 y.o.) CODE STATUS: Full Code Room: W266/W266-01 Date of Service: 12/24/2021 Patient Diagnosis(es): Primary osteoarthritis of right knee [M17.11] Status post total knee replacement, right [Z96.651] Patient Active Problem List Diagnosis Date Noted Status post total knee replacement, right 12/24/2021 Osteoarthritis of left knee 11/09/2019 Gastroesophageal reflux disease 11/09/2019 Depression 11/09/2019 Tear of lateral meniscus of left knee 02/22/2018 Tear of medial meniscus of left knee 02/22/2018 Rheumatoid arthritis (HCC) 02/22/2018 DDD (degenerative disc disease), lumbar 01/08/2013 Past Medical History: Diagnosis Date Back pain, chronic Degenerative disc disease Fibromyalgia Hypertension meds since 2016 Leg pain, left Nausea & vomiting Numbness and tingling of left leg PONV (postoperative nausea and vomiting) Wears glasses Past Surgical History: Procedure Laterality Date BACK SURGERY 01/08/13 lumbar fusion l5-s1 CARPAL TUNNEL RELEASE Bilateral 1990s CHOLECYSTECTOMY 2015 COLONOSCOPY CYST REMOVAL neck / benign ENDOSCOPY, COLON, DIAGNOSTIC HYSTERECTOMY (CERVIX STATUS UNKNOWN) 1996 [place] KNE SURG W/MENISCECTOMY MED/LAT W/SHVG Left 03/02/2018 LEFT KNEE ARTHROSCOPIC MEDIAL AND LATERAL MENISCECTOMY KNEE performed by Rodney Lamb MD [facility] OR TOTAL KNEE ARTHROPLASTY Left 11/15/2019 LEFT KNEE TOTAL KNEE REPLACEMENT HONEY SPINAL, NERVE BLOCK performed by Rodney Lamb MD at [facility] OR Restrictions Restrictions/Precautions: Fall Risk, Weight Bearing Right Lower Extremity Weight Bearing: Weight Bearing As Tolerated Other position/activity restrictions: Knee immobilizer until + SLR Safety Devices: Safety Devices Type of Devices: All fall risk precautions in place;Call light within reach;Left in bed;Bed alarm in place Patient's date of confirmed: Yes General: Chart Reviewed: Yes Patient assessed for rehabilitation services?: Yes Subjective Subjective: I'm okay. A little pain Pain at start of treatment: Yes: 2/10 Pain at end of treatment: Yes: 3/10 Location: R knee Nursing notified: Declined RN: Intervention: Repositioned Prior Level of Function: Social/Functional History Lives With: Spouse Type of Home: House Home Layout: One level, Laundry in basement Home Access: Stairs to enter with rails Entrance Stairs - Number of Steps: 4 Entrance Stairs - Rails: Left Bathroom Shower/Tub: Tub/Shower unit Bathroom Equipment: Hand-held shower Home Equipment: Cane, Walker, rolling, Animal Bounty Hunter ADL Assistance: Independent Homemaking Assistance: Independent Ambulation Assistance: Independent Transfer Assistance: Independent Active Dynamic Balancer: Yes 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 Knee immobilizer adjusted for fit Cognition Status: Cognition Overall Cognitive Status: WFL Perception Status: Perception Overall Perceptual Status: WFL Vision and Hearing Status: Vision Vision Exceptions: Wears glasses at all times Hearing Hearing: Within functional limits Vision - Basic Assessment Prior Vision: Wears glasses all the time Visual History: No significant visual history Patient Visual Report: No visual complaint reported. Visual Field Cut: No Oculo Motor Control: WNL GROSS ASSESSMENT AROM/PROM: AROM: Generally decreased, functional ROM: LUE AROM (degrees) LUE AROM : WFL Left Hand AROM (degrees) Left Hand AROM: WFL RUE AROM (degrees) RUE AROM : WFL Right Hand AROM (degrees) Right Hand AROM: WFL UE STRENGTH: Strength: Generally decreased, functional UE COORDINATION: Coordination: Generally decreased, functional UE TONE: Tone: Normal UE SENSATION: Sensation: Intact Hand Dominance: Hand Dominance Hand Dominance: Right ADL Status: ADL Feeding: Independent Grooming: Supervision UE Bathing: Stand by assistance LE Bathing: Minimal assistance UE Dressing: Stand by assistance LE Dressing: Minimal assistance Toileting: Minimal assistance Additional Comments: Simulated ADLs as above. Limited d/t pain and knee immobilizer Toilet Transfers Toilet - Technique: Ambulating Equipment Used: Grab bars Toilet Transfer: Stand by assistance Toilet Transfers Comments: Verbal cues for technique Functional Mobility: Transfers Sit to stand: Stand by assistance Stand to sit: Stand by assistance Transfer Comments: Verbal cues for technique Patient ambulated to/from bathroom with WW at SBA level. Verbal cues for technique, increased time for ambulation. Bed Mobility Bed mobility Supine to Sit: Supervision Sit to Supine: Supervision Seated and Standing Balance: Balance Sitting: Intact Standing: Impaired Standing - Static: Good Standing - Dynamic: Fair Functional Endurance: Activity Tolerance Activity Tolerance: Patient Tolerated treatment well D/C Recommendations: OT D/C RECOMMENDATIONS REQUIRES OT FOLLOW-UP: Yes Equipment Recommendations: OT Equipment Recommendations Other: Continue to assess OT Education: Patient Education Education Given To: Patient Education Provided: Role of Therapy;Plan of Care Education Method: Verbal Barriers to Learning: None Education Outcome: Verbalized understanding OT Follow Up: OT D/C RECOMMENDATIONS REQUIRES OT FOLLOW-UP: Yes Assessment/Discharge Disposition: Assessment: Pt is a 61 year old woman from home with spouse who presents to [facility] with the above deficits which impact her ability to perform ADLs and IADLs s/p planned knee replacement. Pt. demonstrates decreased balance, endurance and strength. Pt would benefit from continued OT to maximize independence and safety with ADL tasks. Performance deficits / Impairments: Decreased functional mobility , Decreased ADL status, Decreasedendurance, Decreased balance, Decreased high-level IADLs Prognosis: Good Discharge Recommendations: Continue to assess pending progress Decision Making: Medium Complexity History: Pt's medical history is moderately complex Exam: Pt. has 5 performance deficits Assistance / Modification: Pt requires min A AMPAC (Six Click) Self care Score How much help for putting on and taking off regular lower body clothing?: A Little How much help for Bathing?: A Little How much help for Toileting?: A Little How much help for putting on and taking off regular upper body clothing?: A Little How much help for taking care of personal grooming?: A Little How much help for eating meals?: None [facility] Inpatient Daily Activity Raw Score: 19 [facility] Inpatient ADL T-Scale Score : 40.22 ADL Inpatient CMS 0-100% Score: 42.8 Therapy clancy for assistance levels - Independent/Mod I = Pt. is able to perform task with no assistance but may require a device Stand by assistance = Pt. does not perform task at an independent level but does not need physical assistance, requires verbal cues Minimal, Moderate, Maximal Assistance = Pt. requires physical assistance (25%, 50%, 75% assist fromhelper) for task but is able to actively participate in task Dependent = Pt. requires total assistance with task and is not able to actively participate with task completion Plan: Plan Times per Week: 1-4x Plan Weeks: Length of acute stay Current Treatment Recommendations: Functional mobility training, Endurance training, Balance training, Patient/Caregiver education & training, Equipment evaluation, education, & procurement, Safety education & training, Home management training, Self-Care / ADL Goals: Patient will: - Improve functional endurance to tolerate/complete 30 mins of ADL's - Be Mod I in UB ADLs - Be SBA in LB ADLs - Be Mod I in ADL transfers without LOB - Be Mod I in toileting tasks - Access appropriate D/C site with as few architectural barriers as possible. - Sequence self-care tasks with no verbal cues for safety Patient Goal: Patient goals : I want to get home Discussed and agreed upon: Yes Comments: Therapy Time: Individual Time In 1405 Time Out 1421 Minutes 16 Eval: 16 minutes Electronically signed by: MANJU Kwon/Car, 12/24/2021, 3:13 PM * Chris Marsh RN - 12/24/2021 11:38 AM EDT Nausea is persistent. P tstates may be due to fentanyl. Medicated with reglan 10 mg. RH * Chris Marsh RN - 12/24/2021 10:45 AM EDT Pt complaining of nausea, gradually getting worse. Small headache also. Medicated with zofran 4 mg IV. RH * Mariya Mendoza RN - 12/24/2021 8:53 AM EDT Patient ID: Caty Hills [id number] 61 y.o. 1960 BOVIE PAD SITE CLEAR AND INTACT PRE AND POST OP. TAKEN TO PACU, ATTACHED TO MONITOR AND REPORT GIVEN TO RN. VSS DRSG DRY AND INTACT, IMMOBILIZER ON CELLULAR PHONE IN LABELED BAG ON PATIENT BED [facility] [employer] Work Phone: 1(140) 379-763909-22-2022 History of Present illness Narrative* History of present illness * 61-year-old female presented clinic today for her first postop follow-up visit status post right total knee replacement performed December 24, 2021. Overall doing well. She is ambulating with the assistance of a walker. She states her biggest complaint seems to be her pain and how she has had some difficulty with controlling this. She is continuing with home physical therapy but looking forward to outpatient therapy which she will begin at [facility]. She states that the oxycodone has made her feel wired and is requesting a different medication. She is been taking cyclobenzaprine as well which does seem to help with muscle relaxation however she is having some difficulty sleeping. She has no numbness tingling no fevers chills. * Physical exam * General: No acute distress and breathing comfortably. Patient is pleasant and cooperative with the examination. * Extremity * Right knee is neurovascular intact. Range of motion 5 to 90 degrees. Mild edema of the right knee. Tenderness palpation IT band and medial collateral ligament which be expected. No calf swelling or tenderness. 2+ pulses bilateral lower extremity. Compartment soft. Incisions well-healed well approximated without infection. * Diagnostics * Please see dictated x-ray report * Procedure * [ none] * Assessment * Status post right total knee replacement * Treatment plan * 1. Wound instruction discussed with patient today * 2. Prescription for hydrocodone sent to the pharmacy today. Patient was given an order for outpatient physical therapy. We had a discussion in regards to when to take her cyclobenzaprine and her hydrocodone to help her get some sleep. * 3. She will follow-up with us in 3 weeks for reevaluation without x-ray. * 4. All of the patient's questions were answered. * I have personally reviewed the OARRS report for this patient. This report is scanned into the electronic medical record. I have considered the risks of abuse, dependence, addiction and diversion. Pain can reach 8/10 at times. * This note was prepared using voice recognition software. The details of this note are correct and have been reviewed, and corrected to the best of my ability. Some grammatical areas may persist related to the [employer] software * Syed Zaragoza PA-C * . [facility] Work Phone: 1(768) 415-155909-22-2022 Hospital Discharge instructions* Discharge Instructions* Rupert Cerna APRN - ARTICULATION OFFICER - 12/24/2021 1:19 AM EDT Total Knee Replacement Discharge Instructions To prevent Clot formation, you have been placed on the following medication: Aspirin 81 mg twice a day for 30 days started on 12/24/21 Surgical Site Care: .Change dressing once a day and PRN (as needed). Apply 4 x 4 sponge and light tape. If glue present, leave open to air. You may leave wound open to air after initial dressing removal, if wound is clean, dry and intact If Aquacel Ag dressing is present, do not remove dressing for 7 days, unless heavily saturated. If heavily saturated, remove dressing and start using instructions above [place] will be removed on post-operative day 14 and steri-strips applied Showering is permitted starting POD1 if waterproof Aquacel dressing is present or when the incisionis covered with 4 x 4 and Tegaderm waterproof dressing Until all areas of incision are healed. Physical Therapy: Weight Bearing Status: WBAT (Weight bearing as tolerated) Precautions, Per Physical Therapy Handout Pain Medications You were given oxycodone Wean off pain medications as you deem appropriate as long as pain is under control Cold packs/Ice packs/Machine May be used 3 times daily for 15-30 minutes as necessary Be sure to have a barrier (cloth, clothing, towel) between the site and the ice pack to prevent frostbite [facility] office if Increased redness, swelling, drainage of any kind, and/or pain to surgery site. As well as new onset fevers and or chills. These could signify an infection. Calf or thigh tenderness to touch as well as increased swelling or redness. This could signify a clot formation. Numbness or tingling to an area around the incision site or below the incision site (toes). Any rash appears, increased or new onset nausea/vomiting occur. This may indicate a reaction to a medication. . Follow up with Surgeon I acknowledge that I have received reilly travise and understand the instructions on how and when to wearthem (on during the day, off at night) Discharging RN who has gone over instructions and acknowledges reilly hose have been received * Discharge Instr - Diet* Narcisa Brooke RN - 12/25/2021 5:04 PM EDT Good nutrition is important when healing from an illness, injury, or surgery. Follow any nutrition recommendations given to you during your hospital stay. If you were given an oral nutrition supplement while in the hospital, continue to take this supplement at home. You can take it with meals, in-between meals, and/or before bedtime. These supplements can be purchased at most local grocery stores, pharmacies, and chain [employer]-stores. If you have any questions about your diet or nutrition, call the hospital and ask for the dietitian. * Discharge Instr - JESSE* Adjmarni Cerna APRN - ARTICULATION OFFICER - 12/24/2021 1:19 AM EDT Continuity of Care Form Patient Name: Caty Hills : 1960 Admit date: (Not on file) Discharge date: Code Status Order: Prior Advance Directives: Admitting Physician: Rodney Lamb MD PCP: Anibal Juan DO Discharging Nurse: Discharging Hospital Unit/Room#: No information available for this encounter. Discharging Unit Phone Number: Emergency Contact: Extended Emergency Contact Information Primary Emergency Contact: Jose Carlos Hills Address: [address] [place] [address] Mobile Relation: Spouse Secondary Emergency Contact: Angi Baez Mobile Relation: Other Past Surgical History: Past Surgical History: Procedure Laterality Date BACK SURGERY 01/08/13 lumbar fusion l5-s1 CARPAL TUNNEL RELEASE Bilateral 1990s CHOLECYSTECTOMY 2016 COLONOSCOPY CYST REMOVAL neck / benign ENDOSCOPY, COLON, DIAGNOSTIC HYSTERECTOMY (CERVIX STATUS UNKNOWN) 1996 [facility] KNE SURG W/MENISCECTOMY MED/LAT W/SHVG Left 03/02/2018 LEFT KNEE ARTHROSCOPIC MEDIAL AND LATERAL MENISCECTOMY KN[facility] TOTAL KNEE ARTHROPLASTY Left 11/15/2019 LEFT KNEE TOTAL KNEE REPLACEMENT HONEY SPINAL, NERVE BLOCK performed by Rodney Lamb MD at [facility] OR Immunization History: There is no immunization history on file for this patient. Active Problems: Patient Active Problem List Diagnosis Code DDD (degenerative disc disease), lumbar M51.36 Tear of lateral meniscus of left knee S83.282A Tear of medial meniscus of left knee S83.242A Rheumatoid arthritis (HCC) M06.9 Osteoarthritis of left knee M17.12 Gastroesophageal reflux disease K21.9 Depression F32.A Isolation/Infection: Isolation No Isolation Patient Infection Status Infection Onset Added Last Indicated Last Indicated By Review Planned Expiration Resolved Resolved By None active Resolved COVID-19 (Rule Out) 11/09/19 11/09/19 11/09/19 Covid-19 Ambulatory (Ordered) 11/11/19 Rule-Out TestResulted Nurse Assessment: Last Vital Signs: There were no vitals taken for this visit. Last documented pain score (0-10 scale): Last Weight: Wt Readings from Last 1 Encounters: 12/17/21 228 lb 9.6 oz (103.7 kg) Mental Status: {IP PT MENTAL STATUS:} IV Access: { JESSE IV ACCESS:486325552} Nursing Mobility/ADLs: Walking {CHP DME ADLs:203274147} Transfer {CHP DME ADLs:723286305} Bathing {CHP DME ADLs:439987046} Dressing {CHP DME ADLs:684025611} Toileting {CHP DME ADLs:945306350} Feeding {CHP DME ADLs:008097766} Batch And Furnace Manager {CHP DME ADLs:194196216} Med Delivery { JESSE MED Delivery:809844091} Wound Care Documentation and Therapy: Incision 01/08/13 Back Lower (Active) Number of days: 3271 Incision 11/15/19 Knee Anterior;Left (Active) Number of days: 769 Elimination: Continence: Bowel: {YES / NO:} Bladder: {YES / NO:} Urinary Catheter: {Urinary Catheter:487364746} Colostomy/Ileostomy/Ileal Conduit: {YES / NO:} Date of Last BM: No intake or output data in the 24 hours ending 12/24/21 0119 No intake/output data recorded. Safety Concerns: { JESSE Safety Concerns:519245320} Impairments/Disabilities: { JESSE Impairments/Disabilities:710293850} Nutrition Therapy: Current Nutrition Therapy: { JESSE Diet List:793809632} Routes of Feeding: {[facility] DME Other Feedings:351807303} Liquids: {[employer] liquid thickness:50937} Daily Fluid Restriction: {CHP DME Yes amt example:145717713} Last Modified Barium Swallow with Video (Video Swallowing Test): {Done Not Done Date:} Treatments at the Time of Hospital Discharge: Respiratory Treatments: Oxygen Therapy: {Therapy; copd oxygen:59572} Ventilator: { CC Vent List:739704633} Rehab Therapies: {THERAPEUTIC INTERVENTION:7726854399} Weight Bearing Status/Restrictions: {[facility] Weight Bearin} Other Medical Equipment (for information only, NOT a DME order): {EQUIPMENT:129224703} Other Treatments: Patient's personal belongings (please select all that are sent with patient): {[facility] DME Belongings:490644391} RN SIGNATURE: {Esignature:102440748} CASE MANAGEMENT/SOCIAL WORK SECTION Inpatient Status Date: Readmission Risk Assessment Score: Readmission Risk Risk of Unplanned Readmission: 0 Discharging to Facility/ Agency Name: Address: Phone: Fax: Dialysis Facility (if applicable) Name: Address: Dialysis Schedule: Phone: Fax: Commanding Officer Traffic Division/Order Processing Clerk signature: {Esignature:835933623} PHYSICIAN SECTION Prognosis: {Prognosis:2614808998} Condition at Discharge: { Patient Condition:396317635} Rehab Potential (if transferring to Rehab): {Prognosis:4425141844} Recommended Labs or Other Treatments After Discharge: Physician Certification: I certify the above information and transfer of Caty Hills is necessary for the continuing treatment of the diagnosis listed and that she requires {Admit to Appropriate Level of Care:75814} for {GREATER/LESS:261127270} 30 days. Update Admission H&P: {CHP DME Changes in HandP:891637687} PHYSICIAN SIGNATURE: * Attachments The following attachments cannot be sent through Care Everywhere. * TKR (Total Knee Replacement): In the Hospital: Post-op (Cuban) * TKR (Total Knee Replacement): Post-op (Cuban) * TKR (Total Knee Replacement): Rehabilitation (Cuban) * oxycodone (Cuban) * tizanidine (Cuban) * aspirin (oral) (Cuban) * docusate and senna (Cuban) [facility] [employer] Phone: 1(756) 389-817709-15-2022 History of Present illness Narrative* Solange Parsons RN - 12/17/2021 4:17 PM EDT Yellow PAT and Dynahex instruction sheet reviewed with patient, who verbalized understanding. documented in [facility]PRES[facility] [employer] Phone: 1([phone]) 155-581711-28-2021 History of Present illness Narrative* 61 y/o female with Hx of RA on Rinvog and PLQ present for evaluation. She report she had been initially tried on MTX and then transitioned to Enbrel. She then was switched to Rinvog about a year ago.She has had right knee replacement. She report Hx of Fracture of left elbow in 2020 after a fall. She also report pain in her spine as well due to DJD of the spine. * She feels in the last 6 months she has had issues with generalized pain and fatigue. * She was recently diagnosed with Iritis by her thrill performer. * She takes ibuprofen 400 mg as needed for pain , which help 30-40% * She is tolerating Humira so far, almost 3 month on therapy, report 70% improvement. She does feel additional methotrexate is helping her joint symptoms but she is only taking 3 pills right now. * Status post knee replacement surgery December 2021 * She is tolerating bisphosphonate * Previous meds: * Rinvog * Enbrel * MTX [facility] Work Phone: 1([phone]) 557-237410-16-2021 History of Past illness Narrative* Problem Noted DateResolved DateGeneralized tuvhxghy26/20/2021documented as of this encounter (statuses as of 04/08/2022) [address]16-2021 History of Past illness Narrative* ProblemNoted Date Resolved DateGeneralized mapugjtp43/1documented as of this encounter (statuses as of 04/19/2022) [address]16-2021 History of Past illness Narrative* ProblemNoted Date Resolved DateGeneralized /ocumented as of this encounter (statuses as of 04/27/2022) [address]16-2021 History of Past illness Narrative* ProblemNoted Date Resolved DateGeneralized wwsqdreh78/ocumented as of this encounter (statuses as of 06/29/2022) [address]16-2021 History of Past illness Narrative* ProblemNoted Date Diagnosed DateResolved DateGeneralized gbxjcokm14/ocumented as of this encounter (statuses as of 10/15/2022) [address]16-2021 History of Past illness Narrative* ProblemNoted Date Diagnosed DateResolved DateGeneralized kvhrwenh23/ocumented as of this encounter (statuses as of 11/04/2022) [address]16-2021 History of Past illness Narrative* ProblemNoted Date Diagnosed DateResolved DateGeneralized auwnbogx99/1documented as of this encounter (statuses as of 11/09/2022) [address]16-2021 History of Past illness Narrative* ProblemNoted Date Diagnosed DateResolved DateGeneralized lnlaucpb15/1documented as of this encounter (statuses as of 02/08/2023) [address]16-2021 History of Past illness Narrative* ProblemNoted Date Diagnosed DateResolved DateGeneralized mfhckipp52/1documented as of this encounter (statuses as of 02/14/2023) [address]16-2021 History of Past illness Narrative* ProblemNoted Date Diagnosed DateResolved DateGeneralized escdyedx06/1documented as of this encounter (statuses as of 02/17/2023) [facility]-16-2021 History of Past illness Narrative* ProblemNoted Date Diagnosed DateResolved DateGeneralized gemclozk25/1documented as of this encounter (statuses as of 03/02/2023) [facility]-16-2021 History of Past illness Narrative* ProblemNoted Date Diagnosed DateResolved DateGeneralized wdctveno98/1documented as of this encounter (statuses as of 03/02/2023) [facility]-16-2021 History of Past illness Narrative* ProblemNoted Date Diagnosed DateResolved DateGeneralized gbomiwxk64/1documented as of this encounter (statuses as of 05/26/2023) [facility]-2021 History of Past illness Narrative* ProblemNoted Date Diagnosed DateResolved DateGeneralized vkricixs51/1documented as of this encounter (statuses as of 06/01/2023) [facility]-16-2021 History of Past illness Narrative* ProblemNoted Date Diagnosed DateResolved DateGeneralized zzpvtbye69/1documented as of this encounter (statuses as of 06/17/2023) [facility]08-29-2021 History of Present illness Narrative* 61 y/o female with Hx of RA on Rinvog and PLQ present for evaluation. She report she had been initially tried on MTX and then transitioned to Enbrel. She then was switched to Rinvog about a year ago.She has had right knee replacement. She report Hx of Fracture of left elbow in 2020 after a fall. She also report pain in her spine as well due to DJD of the spine. * She feels in the last 6 months she has had issues with generalized pain and fatigue. * She was recently diagnosed with Iritis by her thrill performer. * She takes ibuprofen 400 mg as needed for pain , which help 30-40% * She is tolerating Humira so far, almost 3 month on therapy, report 70% improvement, MTX did help, but nauseous on 5 pills. * Previous meds: * Rinvog * Enbrel * MTX [employer] Work Phone: 1([phone]) 531-770506-29-2021 History of Present illness Narrative* 61 y/o female with Hx of RA on Rinvog and PLQ present for evaluation. She report she had been initially tried on MTX and then transitioned to Enbrel. She then was switched to Rinvog about a year ago.She has had right knee replacement. She report Hx of Fracture of left elbow in 2020 after a fall. She also report pain in her spine as well due to DJD of the spine. * She feels in the last 6 months she has had issues with generalized pain and fatigue. * She was recently diagnosed with Iritis by her thrill performer. * She takes ibuprofen 400 mg as needed for pain , which help 30-40% * today she reports she still have a lot of joint pain and stiffness, worse in her bilateral thumb she would like an injection. She has received Humira and is only had 3 shots so far [employer] Work Phone: 1([phone]) 241-469904-15-2021 History of Present illness Narrative* 61 y/o female with Hx of RA on Rinvog and PLQ present for evaluation. She report she had been initially tried on MTX and then transitioned to Enbrel. She then was switched to Rinvog about a year ago.She has had right knee replacement. She report Hx of Fracture of left elbow in 2020 after a fall. She also report pain in her spine as well due to DJD of the spine. * She feels in the last 6 months she has had issues with generalized pain and fatigue. * She was recently diagnosed with Iritis by her thrill performer. * She report she typically takes ibuprofen 400 mg as needed for pain , which help 30-40% [employer] Work Phone: 1([phone]) 996-731404-14-2021 History of Present illness Narrative* 61 y/o female with Hx of RA on Rinvog and PLQ present for evaluation. She report she had been initially tried on MTX and then transitioned to Enbrel. She then was switched to Rinvog about a year ago.She has had right knee replacement. She report Hx of Fracture of left elbow in 2020 after a fall. She also report pain in her spine as well due to DJD of the spine. * She feels in the last 6 months she has had issues with generalized pain and fatigue. * She was recently diagnosed with Iritis by her thrill performer. * She report she typically takes ibuprofen 400 mg as needed for pain , which help 30-40% [facility] [address] [facility] Work Phone: 1([phone]) 450-480608-01-2020 History of Present illness Narrative* History of present illness * 61-year-old female had left total knee replacement in November 2019 states the left knee has been doing great but recently she has had some soreness along the lateral side but is her right knee is giving her most of the trouble she has stiffness and pain she had an injection in September and it helped foronly about 2 days she has been taking Celebrex she has a knee brace nothing seems to be helping shehas a lot of popping clicking and grinding she is interested in scheduling total knee replacement on the right side * Physical exam * General: No acute distress and breathing comfortably. Patient is pleasant and cooperative with the examination. * Extremity * Left knee has a well-healed incision no instability no signs of infection minimal tenderness along the IT band distally brisk cap refill compartments soft calf is nontender * Right knee * The affected knee was examined and inspected and was tender to touch along the medial aspect. The patient has catching/locking and occasional mechanical symptoms. The skin was intact without breakdown or open wounds. There was a mild Dang exam seen with mild evidence of instability in the collateral ligaments with varus valgus stress and in the anterior posterior plane. There was a negative Kitty's test, pivot shift test, and posterior drawer sign. There was no foot drop, numbness or tingling. Sensation, reflexes, and pulses in the foot and ankle were present. There was an effusion but range of motion was good and straight leg raise testing was normal. The patient had the ability to bear weight but with discomfort. The patient's gait was antalgic secondary to the discomfort. Knee range of motion was 5-120 * Diagnostics * [ none] * Procedure * [ none] * Assessment * Right knee arthritis * Treatment plan * 1. The natural history of the condition and its associated treatment alternatives including surgical and nonsurgical options were discussed with the patient at length. * 2. Likely some tendinitis on the left knee along the IT band related to the fact that her right knee is getting much worse that she like to go and schedule her right total knee replacement she understands it needs to be 3 months from her cortisone injection which was on September 04 so she will set someth ing up in December see me back for preop visit just prior * 3. Patient has failed all forms of conservative treatment. The joint pain is significantly affecting quality of life and activities of daily living. * The patient has pain in the joint that is increased with activity and weightbearing, and walks withan antalgic gait. The pain is interfering with activities of daily living. Patient has limited range of motion and pain with passive range of motion. X-rays demonstrate joint space narrowing, subchondral sclerosis and osteophyte formation. Symptoms are not improving with medication, physical therapy or supportive device for a period of at least 3 months. * Patient would like to go and schedule joint replacement surgery. The procedure its risks, benefits,and treatment alternatives were discussed at length and patient would like to proceed. Patient is going to schedule the procedure at their earliest convenience and see me back for a preop visit just prior. Preadmission testing, medical checkup, and insurance authorization will be performed in the meantime. Patient understands a joint replacement surgery is a last resort, although a very successful operation results are not guaranteed. * 4. All of the patient's questions were answered. * This note was prepared using voice recognition software. The details of this note are correct and have been reviewed, and corrected to the best of my ability. Some grammatical areas may persist related to the [employer] software * Rodney Lamb MD * . -[facility] Work Phone: Evaluation noteNo [email or web address] Other Evaluation note* Diagnosis Status post total knee replacement, right- Primary Acute post-operative pain documented in this encounter [facility] Work Phone: evaluation noteNo assessment information available [facility] Work Phone: Evaluation note* Diagnosis Rheumatoid arthritis involving multiple sites with positive rheumatoid factor (HCC)- Primary High risk medication use Encounter for long-term (current) use of other medications Chronic pain of right knee H/O iritis Personal history of other disorders of nervous system and sense organs [facility] Diagnosis Rheumatoid arthritis involving multiple sites with positive rheumatoid factor (HCC) documented [facility]* Diagnosis Rheumatoid arthritis involving multiple sites with positive rheumatoid factor (HCC)- Primary [facility]* Diagnosis Rheumatoid arthritis involving multiple sites with positive rheumatoid factor (HCC)- Primary High risk medication use Encounter for long-term (current) use of other medications H/O iritis Personal history of other disorders of nervous system and sense organs [facility] Diagnosis Rheumatoid arthritis involving multiple sites with positive rheumatoid factor (HCC) documented [facility]* Diagnosis Rheumatoid arthritis involving multiple sites with positive rheumatoid factor (HCC) documented [facility]* Diagnosis Palpitations Shortness of breath Syncope and collapse documented in this encounter [facility] Work Phone: Evaluation note* Diagnosis Rheumatoid arthritis involving multiple sites with positive rheumatoid factor (HCC) [facility]* Diagnosis Arthritis of carpometacarpal (CMC) joint of thumb- Primary Rheumatoid arthritis involving multiple sites with positive rheumatoid factor (HCC) [facility] Diagnosis Palpitations Shortness of breath Syncope and collapse Encounter to discuss test results Other specified counseling PAT (paroxysmal atrial tachycardia) Paroxysmal supraventricular tachycardia Obesity (BMI 35.0-39.9 without comorbidity) Essential hypertension Unspecified essential hypertension documented in this encounter [facility] Work Phone: Evaluation note* Diagnosis Palpitations Shortness of breath Syncope and collapse documented in this encounter [facility] Work Phone: Evaluation note* Diagnosis Arthritis of carpometacarpal (CMC) joint of thumb- Primary [facility] Diagnosis Bilateral thumb pain- Primary [facility]* Diagnosis Urinary frequency [facility] S/P total knee replacement, right- Primary Right knee pain, unspecified chronicity Right knee pain, unspecified chronicity documented in this encounter [facility] Work Phone: Evaluation note* Diagnosis Rheumatoid arthritis involving multiple sites with positive rheumatoid factor (HCC)- Primary High risk medication use Encounter for long-term (current) use of other medications H/O iritis Personal history of other disorders of nervous system and sense organs [facility] Diagnosis Rheumatoid arthritis involving multiple sites with positive rheumatoid factor (HCC)- Primary High risk medication use Encounter for long-term (current) use of other medications H/O iritis Personal history of other disorders of nervous system and sense organs [facility] Diagnosis Rheumatoid arthritis involving multiple sites with positive rheumatoid factor (HCC)- Primary [facility] Diagnosis Rheumatoid arthritis involving multiple sites with positive rheumatoid factor (HCC)- Primary [facility] Diagnosis Rheumatoid arthritis involving multiple sites with positive rheumatoid factor (HCC)- Primary [facility] Diagnosis Rheumatoid arthritis involving multiple sites with positive rheumatoid factor (HCC) [facility] Diagnosis Rheumatoid arthritis involving multiple sites with positive rheumatoid factor (HCC) [facility] Diagnosis High risk medication use- Primary Encounter for long-term (current) use of other medications Rheumatoid arthritis involving multiple sites with positive rheumatoid factor (HCC) H/O iritis Personal history of other disorders of nervous system and sense organs [facility] Acute cystitis with hematuria- Primary Dysuria Obesity (BMI 30-39.9) [facility] Diagnosis Bilateral foot pain Pain in limb [facility] Diagnosis Non-recurrent acute suppurative otitis media of both ears without spontaneous rupture of tympanic membranes- Primary Obesity (BMI 30-39.9) Immunocompromised (CMS/HCC) Unspecified immunity deficiency Rheumatoid arthritis involving multiple sites with positive rheumatoid factor (CMS/HCC) documented [facility]* Diagnosis Sinusitis, unspecified chronicity, unspecified location- Primary Immunocompromised (CMS/HCC) Unspecified immunity deficiency Other migraine without status migrainosus, not intractable ([facility]) Severe obesity (BMI 35.0-39.9) with comorbidity ([facility]) documented in this encounter [facility]* Diagnosis Rheumatoid arthritis involving multiple sites with positive rheumatoid factor (HCC)- Primary High risk medication use Encounter for long-term (current) use of other medications H/O iritis Personal history of other disorders of nervous system and sense organs [facility] Diagnosis Bilateral impacted cerumen- Primary Impacted cerumen Referred otalgia, bilateral Bilateral hearing loss, unspecified hearing loss type documented in this encounter [facility]* Diagnosis Rheumatoid arthritis involving multiple sites with positive rheumatoid factor (HCC)- Primary [facility] Diagnosis PAT (paroxysmal atrial tachycardia) ([facility])- Primary Paroxysmal supraventricular tachycardia Palpitations Essential hypertension Unspecified essential hypertension Obesity (BMI 35.0-39.9 without comorbidity) Syncope and collapse documented in this encounter [facility] Work Phone: Evaluation note* Diagnosis Rheumatoid arthritis involving multiple sites with positive rheumatoid factor (HCC) [facility] Diagnosis Chronic fatigue syndrome- Primary Arthritis, lumbar spine Fibromyalgia Unspecified myalgia and myositis Immunocompromised ([facility]) Unspecified immunity deficiency Major depressive disorder, single episode, mild (HCC) ([facility]) Major depressive disorder, single episode, mild Anxiety Anxiety state, unspecified Obesity (BMI 35.0-39.9 without comorbidity) Rheumatoid arthritis involving multiple sites with positive rheumatoid factor ([facility]) Spondylolisthesis at L4-L5 level Numbness and tingling of both lower extremities documented in this encounter [facility]* Diagnosis Influenza A- Primary Influenza with other respiratory manifestations documented in this encounter [facility]* Diagnosis Rheumatoid arthritis involving multiple sites with positive rheumatoid factor (HCC)- Primary High risk medication use Encounter for long-term (current) use of other medications H/O iritis Personal history of other disorders of nervous system and sense organs [facility] Diagnosis Gastroesophageal reflux disease, unspecified whether esophagitis present- Primary Irritable bowel syndrome, unspecified type Obesity (BMI 35.0-39.9 without comorbidity) Immunocompromised (CMS/HCC) Unspecified immunity deficiency Chronic fatigue syndrome Fibromyalgia Unspecified myalgia and myositis Rheumatoid arthritis involving multiple sites with positive rheumatoid factor (CMS/HCC) Vitamin D deficiency Chronic fatigue Other malaise and fatigue Mass of left side of neck [facility] Diagnosis Rheumatoid arthritis involving multiple sites with positive rheumatoid factor (HCC)- Primary High risk medication use Encounter for long-term (current) use of other medications H/O iritis Personal history of other disorders of nervous system and sense organs Cervical spine arthritis with nerve pain Radicular pain in left arm Neuralgia, neuritis, and radiculitis, unspecified Spinal stenosis of cervical region Spinal stenosis in cervical region [facility] Diagnosis Cervical spine arthritis with nerve pain Radicular pain in left arm Neuralgia, neuritis, and radiculitis, unspecified Spinal stenosis of cervical region Spinal stenosis in cervical region [facility] Diagnosis Malaise and fatigue- Primary Other malaise and fatigue Vitamin D deficiency Unspecified vitamin D deficiency Abnormal weight gain [facility]* Diagnosis Rheumatoid arthritis involving multiple sites with positive rheumatoid factor (HCC) [facility] Diagnosis History of lumbar fusion Radiculitis, lumbosacral Thoracic or lumbosacral neuritis or radiculitis, unspecified Facet arthropathy, cervical Cervical spondylosis without myelopathy Recurrent occipital headache Headache [facility] Diagnosis PAT (paroxysmal atrial tachycardia)- Primary Paroxysmal supraventricular tachycardia Palpitations Essential hypertension Unspecified essential hypertension Obesity (BMI 35.0-39.9 without comorbidity) Syncope and collapse Left knee pain, unspecified chronicity documented in this encounter [facility] Work Phone: Evaluation note* Diagnosis PAT (paroxysmal atrial tachycardia)- Primary Paroxysmal supraventricular tachycardia Palpitations Essential hypertension Unspecified essential hypertension Obesity (BMI 35.0-39.9 without comorbidity) Syncope and collapse Knee strain, left, initial encounter- Primary Left knee pain, unspecified chronicity Sprain of left knee, initial encounter Left knee pain, unspecified chronicity documented in this encounter [facility] Work Phone: Evaluation note* Diagnosis Rheumatoid arthritis involving multiple sites with positive rheumatoid factor (HCC)- Primary [facility] Diagnosis Facet arthropathy, cervical- Primary Cervical spondylosis without myelopathy Recurrent occipital headache Headache Adjacent segment disease of lumbar spine with history of fusion procedure History of lumbar fusion Radiculitis, lumbosacral Thoracic or lumbosacral neuritis or radiculitis, unspecified Rheumatoid arthritis, involving unspecified site, unspecified whether rheumatoid factor present (HCC) History of lumbar fusion Radiculitis, lumbosacral Thoracic or lumbosacral neuritis or radiculitis, unspecified Facet arthropathy, cervical Cervical spondylosis without myelopathy Recurrent occipital headache Headache [facility] Diagnosis Nonintractable headache, unspecified chronicity pattern, unspecified headache type- Primary Spondylosis of cervical region without myelopathy or radiculopathy Arthrodesis status Radiculopathy, lumbosacral region Thoracic or lumbosacral neuritis or radiculitis, unspecified documented in this encounter [facility]* Diagnosis Nonintractable headache, unspecified chronicity pattern, unspecified headache type- Primary Spondylosis of cervical region without myelopathy or radiculopathy Arthrodesis status Radiculopathy, lumbosacral region Thoracic or lumbosacral neuritis or radiculitis, unspecified [facility]* Diagnosis Left knee pain, unspecified chronicity- Primary Sprain of unspecified site of left knee, initial encounter Strain of unspecified muscle(s) and tendon(s) at lower leg level, left leg, initial encounter [facility]* Diagnosis Nonintractable headache, unspecified chronicity pattern, unspecified headache type- Primary Spondylosis of cervical region without myelopathy or radiculopathy Arthrodesis status Radiculopathy, lumbosacral region Thoracic or lumbosacral neuritis or radiculitis, unspecified [facility]* Diagnosis Nonintractable headache, unspecified chronicity pattern, unspecified headache type- Primary Spondylosis of cervical region without myelopathy or radiculopathy Arthrodesis status Radiculopathy, lumbosacral region Thoracic or lumbosacral neuritis or radiculitis, unspecified [facility]* Diagnosis Nonintractable headache, unspecified chronicity pattern, unspecified headache type- Primary Spondylosis of cervical region without myelopathy or radiculopathy Arthrodesis status Radiculopathy, lumbosacral region Thoracic or lumbosacral neuritis or radiculitis, unspecified [facility]* Diagnosis Nonintractable headache, unspecified chronicity pattern, unspecified headache type- Primary Spondylosis of cervical region without myelopathy or radiculopathy Arthrodesis status Radiculopathy, lumbosacral region Thoracic or lumbosacral neuritis or radiculitis, unspecified [facility]* Diagnosis Nonintractable headache, unspecified chronicity pattern, unspecified headache type- Primary Spondylosis of cervical region without myelopathy or radiculopathy Arthrodesis status Radiculopathy, lumbosacral region Thoracic or lumbosacral neuritis or radiculitis, unspecified [facility]* Diagnosis PAT (paroxysmal atrial tachycardia) ([facility])- Primary Paroxysmal supraventricular tachycardia Palpitations Essential hypertension Unspecified essential hypertension Obesity (BMI 35.0-39.9 without comorbidity) Syncope and collapse Knee strain, left, initial encounter- Primary documented in this encounter [facility] Work Phone: Evaluation note* Diagnosis Left knee pain, unspecified chronicity- Primary Sprain of unspecified site of left knee, initial encounter Strain of unspecified muscle(s) and tendon(s) at lower leg level, left leg, initial encounter [facility]* Diagnosis Nonintractable headache, unspecified chronicity pattern, unspecified headache type- Primary Spondylosis of cervical region without myelopathy or radiculopathy Arthrodesis status Radiculopathy, lumbosacral region Thoracic or lumbosacral neuritis or radiculitis, unspecified documented [facility]* Diagnosis Left knee pain, unspecified chronicity- Primary Sprain of unspecified site of left knee, initial encounter Strain of unspecified muscle(s) and tendon(s) at lower leg level, left leg, initial encounter [facility]* Diagnosis Nonintractable headache, unspecified chronicity pattern, unspecified headache type- Primary Spondylosis of cervical region without myelopathy or radiculopathy Arthrodesis status Radiculopathy, lumbosacral region Thoracic or lumbosacral neuritis or radiculitis, unspecified documented [facility] this encounter [facility] Author Rashaad Aaron [facility], IncNote Date/TimeJanuary 2024 1:24pm [place] [address] Gastroenterology H&P Signed Patient: Caty Hills MR#: [id number] : 1960 Acct:[id number] Age/Sex: 64 / F Adm Date: Loc: Room: Type: [facility] Attending Dr: Rashaad Aaron MD Copies to: MD Anibal Ahuja, DO~ Date of Service: 04/25/2024 HISTORY & PHYSICAL: Patient's history with special attention to the cardiovascular, pulmonary systems and the current problem was reviewed with the patient immediately prior to the procedure. Present medications and doses reviewed in the EMR. Allergies and pertinent laboratory tests were also re viewedat this time in the EMR. The physical examination, as below, was then performed. Indication, assessment and HPI: 64-year-old female here for colonoscopy for evaluation of diarrhea Family history of GI malignancy? No PHYSICAL EXAMINATION General appearance: NAD Skin: No jaundice Head: NC/AT Eyes: Anicteric Neck: Supple Lungs: Normal respiratory effort, no use of accessory muscles Abdomen: nondistended Neuro: Ox3. REVIEW OF SYSTEMS Constitutional: Denies malaise, fevers Cardiovascular: Denies chest pain, palpitations Respiratory: Denies shortness of breath, wheezing Gastrointestinal: As per HPI Genitourinary: Denies dysuria, polyuria Musculoskeletal: Denies joint swelling, joint stiffness Neurological: Denies confusion, numbness, tingling Endocrine: Denies fatigue Written informed consent obtained from the patient. Risks (including but not limited to perforation, infection, bloating, bleeding, need for emergent surgeryand loss of life), benefits and alternatives explained and questions answered. The patient verbalized understanding. Based on history patient is an appropriate candidate for the procedure. Rashaad Aaron M.D. Documented By: Rashaad Aaron MD 04/25/24 1323 Signed By: <Electronically signed by Rashaad Aaron MD> 04/25/24 1324 [facility] Work Phone: History and physical note Author Rashaad Aaron [facility], IncNote Date/TimeMay 2024 9:13[place] [address] Gastroenterology H&P Signed Patient: Caty Hills MR#: [id number] : 1960 Acct:[id number] Age/Sex: 64 / F Adm Date: 5 Loc: Room: Type: [facility] Attending Dr: Rashaad Aaron MD Copies to: MD Anibal Ahuja, DO~ Date of Service: 08/03/2024 HISTORY & PHYSICAL: Patient's history with special attention to the cardiovascular, pulmonary systems and the current problem was reviewed with the patient immediately prior to the procedure. Present medications and doses reviewed in the EMR. Allergies and pertinent laboratory tests were also re viewedat this time in the EMR. The physical examination, as below, was then performed. Indication, assessment and HPI: 64-year-old female here for EGD for evaluation of dysphagia Family history of GI malignancy? No PHYSICAL EXAMINATION General appearance: NAD Skin: No jaundice Head: NC/AT Eyes: Anicteric Neck: Supple Lungs: Normal respiratory effort, no use of accessory muscles Abdomen: nondistended Neuro: Ox3. REVIEW OF SYSTEMS Constitutional: Denies malaise, fevers Cardiovascular: Denies chest pain, palpitations Respiratory: Denies shortness of breath, wheezing Gastrointestinal: As per HPI Genitourinary: Denies dysuria, polyuria Musculoskeletal: Denies joint swelling, joint stiffness Neurological: Denies confusion, numbness, tingling Endocrine: Denies fatigue Written informed consent obtained from the patient. Risks (including but not limited to perforation, infection, bloating, bleeding, need for emergent surgeryand loss of life), benefits and alternatives explained and questions answered. The patient verbalized understanding. Based on history patient is an appropriate candidate for the procedure. Rashaad Aaron M.D. Documented By: Rashaad Aarno MD 08/03/24823 Signed By: <Electronically signed by Rashaad Aaron MD> 08/03/24823 [facility] Work Phone: History general Narrative - Reported* Type Description Date Medical History chronic fatigue Medical Historyrheumatoid arthritisMedical HistoryhypertensionSurgical History hysterectomySurgical HistorytonsillectomySurgical Historycarpal tunnel both handsSurgical Historycyst removal right side of neckSurgical Historylumbar fusion L5/6Surgical HistorymeniscusSurgical Historycholecystectomy Hospitalization Historysee above [facility] Other Hishtla general Narrative - Reported* Type Description Date Medical History chronic fatigue Medical Historyrheumatoid arthritisMedical HistoryhypertensionSurgical History hysterectomySurgical HistorytonsillectomySurgical Historycarpal tunnel both handsSurgical Historycyst removal right side of neckSurgical Historylumbar fusion L5/6Surgical HistorymeniscusSurgical HistorycholecystectomySurgical Historyrt knee replacementHospitalization Historysee above [employer] Other History of Present illness Narrative* History of present illness * 61-year-old female has had a left total knee replacement presents complaining of increasing right-sided knee pain she does not recall any specific episode injury is worse with weightbearing she does stand all day at work she is noticing more more deformity more more swelling a lot of popping clicking and grinding * Physical exam * General: No acute distress and breathing comfortably. Patient is pleasant and cooperative with the examination. * Extremity * The affected knee was examined and inspected and was tender to touch along the medial aspect. The patient has catching/locking and occasional mechanical symptoms. The skin was intact without breakdown or open wounds. There was a mild Dang exam seen with mild evidence of instability in the collateral ligaments with varus valgus stress and in the anterior posterior plane. There was a negative Kitty's test, pivot shift test, and posterior drawer sign. There was no foot drop, numbness or tingling. Sensation, reflexes, and pulses in the foot and ankle were present. There was an effusion but range of motion was good and straight leg raise testing was normal. The patient had the ability to bear weight but with discomfort. The patient's gait was antalgic secondary to the discomfort. Knee range of motion was 0-110 * Diagnostics * See dictated x-ray report * Procedure * Before aspiration/injection, the risks and benefits of this procedure including infection, local skin irritation, skin atrophy, calcification, continued pain or discomfort, elevated blood sugar, burning failure to relieve pain, possible late infection were all discussed with the patient * Postprocedure discomfort can be alleviated with additional medication, ice, elevation, and rest over the first 24 hours as recommended * The patient verbalized understanding and wanted to proceed with planned procedure * After informed consent was provided patient identification was confirmed and allergies were verified, the patient was appropriately positioned. The joint was prepped in the usual sterile manner to provide a sterile environment. The skin was anesthetized with ethyl chloride spray. The aspiration/injection was performed with standard technique. * The joint was injected with right knee 2 cc Celestone 4 cc lidocaine. * The needle was withdrawn and the puncture site was secured with a Band-Aid * The patient tolerated procedure well without complication * Assessment * Right knee arthritis * Treatment plan * 1. The natural history of the condition and its associated treatment alternatives including surgical and nonsurgical options were discussed with the patient at length. * 2. Patient has already had a left knee replacement she knows was coming on the right he like to trycortisone which is performed today short runner knee brace is applied for support she will follow-up with me if the knee gives her more trouble. * 3. [ ] * 4. All of the patient's questions were answered. * This note was prepared using voice recognition software. The details of this note are correct and have been reviewed, and corrected to the best of my ability. Some grammatical areas may persist related to the [employer] software * Rodney Lamb MD * . -[facility] Work Phone: History of Present illness Narrative* History of present illness * 62-year-old female follow-up of her right total knee replacement from December she is 6 months outshe states her right knee is doing great she feels like she is turned a corner she is very happy with the progress she has a little bit of swelling no numbness or tingling no fevers or chills no locki ng or giving way. She is ambulating without assist device. * Physical exam * General: No acute distress and breathing comfortably. Patient is pleasant and cooperative with the examination. * Extremity * Right knee incision well-healed full knee extension flexion 120 degrees no instability brisk capillary refill compartments are soft calf is nontender * Diagnostics * See dictated x-ray report reviewed to the PACS system dated 05/19 * Procedure * [ none] * Assessment * Status post total knee replacement right * Treatment plan * 1. Continue working on range of motion strengthening continue to weight-bear as tolerated follow-up6 months sooner if he has increased pain or discomfort. * 2. [ ] * 3. [ ] * 4. All of the patient's questions were answered. * This note was prepared using voice recognition software. The details of this note are correct and have been reviewed, and corrected to the best of my ability. Some grammatical areas may persist related to the [employer] software * Rodney Lamb MD * Senior Attending Physician * [facility] [place] * . -[facility] Work Phone: Hospital Discharge instructions Additional Instructions Follow-up with your orthopedic doctor as soon as possible [facility] are [facility]: Reason for referral (narrative)* Diagnostic Procedure Only (Routine) - ClosedSpecialtyDiagnoses / ProceduresReferred By Contact Referred To ContactXR IMAGING Diagnoses Rheumatoid arthritis involving multiple sites with positive rheumatoid factor (HCC) Procedures XR HAND GENERAL 3V PA/LAT/OBL BILATERAL RADEX HAND MINIMUM 3 VIEWS Chris No MD [address] [place] [address] [place] [address] Referral IDStatusReasonStart DateExpiration DateVisits RequestedVisits [id number] Auto-Generated Referral / [facility] for referral (narrative)* Consultation (Routine) - AuthorizedSpecialtyDiagnoses / ProceduresReferred By ContactReferred To ContactCardiology Diagnoses Palpitations Procedures Follow Up In Cardiology Rena Becerra MD [address] [facility] [address] [place] [address] Rena Becerra MD [address] [facility] [address] [place] [address] Referral IDStatusReasonStart DateExpiration DateVisits RequestedVisits [id number] * Imaging (Routine) - Pending ReviewSpecialtyDiagnoses / ProceduresReferred By ContactReferred To ContactRadiology Diagnoses Palpitations Shortness of breath Procedures CT cardiac scoring wo IV contrast Rena Becerra MD [address] [facility] [address] [place] [address] Referral IDStatusReasonStwater valley DateExpiration DateVisits RequestedVisits [id number] Review Perform Procedure / [facility] Work Phone: [facility] for referral (narrative)* Consultation (Routine) - AuthorizedSpecialtyDiagnoses / ProceduresReferred By Contact Referred To ContactCardiology Diagnoses PAT (paroxysmal atrial tachycardia) ([facility]) Procedures Follow Up In Cardiology Sarabjit Phillips, PERMANENT WAVER[employer]ARTICULATION OFFICER [address] [facility] [address] [place] [address] Rena Becerra MD [address] [facility] [address] [place] [address] Referral IDStatusReasonStart DateExpiration DateVisits RequestedVisits [id number] [facility] Work Phone: Reason for referral (narrative)No reason for referral information availableAvita [facility] Work Phone: Reason for visit Narrative* Diagnostic Procedure Only (Routine) - ClosedSpecialtyDiagnoses / ProceduresReferred By ContactReferred To ContactXR IMAGING Diagnoses Rheumatoid arthritis involving multiple sites with positive rheumatoid factor (HCC) Procedures XR HAND GENERAL 3V PA/LAT/OBL BILATERAL RADEX HAND MINIMUM 3 VIEWS Chris No MD [address] [place] [address] Xr [place] [address] Referral IDStatusReasonStart DateExpiration DateVisits RequestedVisits [id number] Auto-Generated Referral / [facility] for visit Narrative* Diagnostic Procedure Only (Routine) - ClosedSpecialtyDiagnoses / ProceduresReferred By ContactReferred To Contact MR IMAGING Diagnoses Cervical spine arthritis with nerve pain Radicular pain in left arm Spinal stenosis of cervical region Procedures MRI CERVICAL SPINE WO IVCON MRI SPINAL CANAL CERVICAL [place] [address] [facility] [place] [address] Phone: tel: fax: MR IMAGING [place] [address] Referral IDStatusReasonColumbus DateExpiration DateVisits RequestedVisits [id number] Auto-Generated Referral / [facility] for visit Narrative* Imaging (Routine) - Authorized SpecialtyDiagnoses / ProceduresReferred By ContactReferred To ContactRadiology Diagnoses Left knee pain, unspecified chronicity Procedures XR knee left 3 views Rodney Lamb MD [address] [facility], [address] [place] [address] Phone: tel: fax: Referral IDStatusReasonStart DateExpiration DateVisits RequestedVisits [id number] Perform Procedure [facility] Work Phone: Reason for visit Narrative* Rehabilitation - Outpatient (Routine) - AuthorizedSpecialtyDiagnoses / ProceduresReferred By ContactReferred To ContactPhysical Therapy Diagnoses Spondylosis without myelopathy or radiculopathy, cervical region Headache, unspecified Arthrodesis status Radiculopathy, lumbosacral region Procedures PA PHYS THERAPY EVALUATION Josh Mcgowan MD [address] [place] [address] Phone: tel: fax: Ariana Larson, PT [address] [place] [address] Phone: tel: fax: Referral IDStatusReasonStart DateExpiration DateVisits RequestedVisits [id number] Consult and Treat / [facility] HealthcareReason for visit Narrative* Rehabilitation - Outpatient (Routine) - AuthorizedSpecialtyDiagnoses / ProceduresReferred By ContactReferred To ContactPhysical Therapy Diagnoses Pain in left knee Sprain of unspecified site of left knee, initial encounter Strain of unspecified muscle(s) and tendon(s) at lower leg level, left leg, initial encounter Procedures PA PHYS THERAPY EVALUATION Rodney Lamb MD [address] [place] [address] Phone: tel: fax: Ariana Larson, PT [address] [place] [address] Phone: tel: fax: Referral IDStatusReasonStart DateExpiration DateVisits RequestedVisits [id number] Consult and Treat / [facility] HealthcareReason for visit Narrative* Rehabilitation - Outpatient (Routine) - AuthorizedSpecialtyDiagnoses / ProceduresReferred By ContactReferred To ContactPhysical Therapy Diagnoses Spondylosis without myelopathy or radiculopathy, cervical region Headache, unspecified Arthrodesis status Radiculopathy, lumbosacral region Procedures PA PHYS THERAPY EVALUATION Josh Mcgowan MD [address] [place] [address] Phone: tel: fax: Ariana Larson, PT [address] [place] [address] Phone: tel: fax: Referral IDStatusReasonStart DateExpiration DateVisits RequestedVisits [id number] Consult and Treat [facility] HealthcareReason for visit Narrative* Rehabilitation - Outpatient (Routine) - AuthorizedSpecialtyDiagnoses / ProceduresReferred By ContactReferred To ContactPhysical Therapy Diagnoses Pain in left knee Sprain of unspecified site of left knee, initial encounter Strain of unspecified muscle(s) and tendon(s) at lower leg level, left leg, initial encounter Procedures PA PHYS THERAPY EVALUATION Rodney Lamb MD [address] [place] [address] Phone: tel: fax: Ariana Larson, PT [address] [place] [address] Phone: tel: fax: Referral IDStatusReasonStart DateExpiration DateVisits RequestedVisits [id number] Consult and Treat [facility] Healthcare Summary Purpose Family History No Family History Records FoundUnknown Family Member Name Dates Details Family history of arthritis: Mother, Brother(V17.7, Z82.61) Status:ActiveFamily history of osteoarthritis: Mother(V17.89, Z82.69) Status:ActiveFamily history of gout: Brother(V18.19, Z82.69) Status:ActiveFamily history of malignant neoplasm: Other(V16.9, Z80.9) Status:ActiveFamily history of cerebrovascular accident (CVA): Other(V17.1, Z82.3) Status:ActiveFamily history of colitis: Other(V18.59, Z83.79) Status:ActiveFamily history of cardiac disorder: Other(V17.49, Z82.49) Status:ActiveFamily history of hypertension: Other(V17.49, Z82.49) Status:ActiveFamily history of alcoholism: Other(V17.0, Z81.1) Status:ActiveFamily history of asthma: Other(V17.5, Z82.5) Status:ActiveFamily history of diabetes mellitus: Other(V18.0, Z83.3) Status:Active Unknown Family Member Name Dates Details Family history of arthritis: Mother, Brother(V17.7, Z82.61) Status:ActiveFamily history of osteoarthritis: Mother(V17.89, Z82.69) Status:ActiveFamily history of gout: Brother(V18.19, Z82.69) Status:ActiveFamily history of malignant neoplasm: Other(V16.9, Z80.9) Status:ActiveFamily history of cerebrovascular accident (CVA): Other(V17.1, Z82.3) Status:ActiveFamily history of colitis: Other(V18.59, Z83.79) Status:ActiveFamily history of cardiac disorder: Other(V17.49, Z82.49) Status:ActiveFamily history of hypertension: Other(V17.49, Z82.49) Status:ActiveFamily history of alcoholism: Other(V17.0, Z81.1) Status:ActiveFamily history of asthma: Other(V17.5, Z82.5) Status:ActiveFamily history of diabetes mellitus: Other(V18.0, Z83.3) Status:Active Unknown Family Member Name Dates Details Family history of arthritis: Mother, Brother(V17.7, Z82.61) Status:ActiveFamily history of osteoarthritis: Mother(V17.89, Z82.69) Status:ActiveFamily history of gout: Brother(V18.19, Z82.69) Status:ActiveFamily history of malignant neoplasm: Other(V16.9, Z80.9) Status:ActiveFamily history of cerebrovascular accident (CVA): Other(V17.1, Z82.3) Status:ActiveFamily history of colitis: Other(V18.59, Z83.79) Status:ActiveFamily history of cardiac disorder: Other(V17.49, Z82.49) Status:ActiveFamily history of hypertension: Other(V17.49, Z82.49) Status:ActiveFamily history of alcoholism: Other(V17.0, Z81.1) Status:ActiveFamily history of asthma: Other(V17.5, Z82.5) Status:ActiveFamily history of diabetes mellitus: Other(V18.0, Z83.3) Status:Active Unknown Family Member Name Dates Details Family history of arthritis: Mother, Brother(V17.7, Z82.61) Status:ActiveFamily history of osteoarthritis: Mother(V17.89, Z82.69) Status:ActiveFamily history of gout: Brother(V18.19, Z82.69) Status:ActiveFamily history of malignant neoplasm: Other(V16.9, Z80.9) Status:ActiveFamily history of cerebrovascular accident (CVA): Other(V17.1, Z82.3) Status:ActiveFamily history of colitis: Other(V18.59, Z83.79) Status:ActiveFamily history of cardiac disorder: Other(V17.49, Z82.49) Status:ActiveFamily history of hypertension: Other(V17.49, Z82.49) Status:ActiveFamily history of alcoholism: Other(V17.0, Z81.1) Status:ActiveFamily history of asthma: Other(V17.5, Z82.5) Status:ActiveFamily history of diabetes mellitus: Other(V18.0, Z83.3) Status:Active Unknown Family Member Name Dates Details Family history of arthritis: Mother, Brother(V17.7, Z82.61) Status:ActiveFamily history of osteoarthritis: Mother(V17.89, Z82.69) Status:ActiveFamily history of gout: Brother(V18.19, Z82.69) Status:ActiveFamily history of malignant neoplasm: Other(V16.9, Z80.9) Status:ActiveFamily history of cerebrovascular accident (CVA): Other(V17.1, Z82.3) Status:ActiveFamily history of colitis: Other(V18.59, Z83.79) Status:ActiveFamily history of cardiac disorder: Other(V17.49, Z82.49) Status:ActiveFamily history of hypertension: Other(V17.49, Z82.49) Status:ActiveFamily history of alcoholism: Other(V17.0, Z81.1) Status:ActiveFamily history of asthma: Other(V17.5, Z82.5) Status:ActiveFamily history of diabetes mellitus: Other(V18.0, Z83.3) Status:Active Unknown Family Member Name Dates Details Family history of arthritis: Mother, Brother(V17.7, Z82.61) Status:ActiveFamily history of osteoarthritis: Mother(V17.89, Z82.69) Status:ActiveFamily history of gout: Brother(V18.19, Z82.69) Status:ActiveFamily history of malignant neoplasm: Other(V16.9, Z80.9) Status:ActiveFamily history of cerebrovascular accident (CVA): Other(V17.1, Z82.3) Status:ActiveFamily history of colitis: Other(V18.59, Z83.79) Status:ActiveFamily history of cardiac disorder: Other(V17.49, Z82.49) Status:ActiveFamily history of hypertension: Other(V17.49, Z82.49) Status:ActiveFamily history of alcoholism: Other(V17.0, Z81.1) Status:ActiveFamily history of diabetes mellitus: Other(V18.0, Z83.3) Status:ActiveFamily history of asthma: Other(V17.5, Z82.5) Status:Active Unknown Family Member Name Dates Details Family history of arthritis: Mother, Brother(V17.7, Z82.61) Status:ActiveFamily history of osteoarthritis: Mother(V17.89, Z82.69) Status:ActiveFamily history of gout: Brother(V18.19, Z82.69) Status:ActiveFamily history of malignant neoplasm: Other(V16.9, Z80.9) Status:ActiveFamily history of cerebrovascular accident (CVA): Other(V17.1, Z82.3) Status:ActiveFamily history of colitis: Other(V18.59, Z83.79) Status:ActiveFamily history of cardiac disorder: Other(V17.49, Z82.49) Status:ActiveFamily history of hypertension: Other(V17.49, Z82.49) Status:ActiveFamily history of alcoholism: Other(V17.0, Z81.1) Status:ActiveFamily history of asthma: Other(V17.5, Z82.5) Status:ActiveFamily history of diabetes mellitus: Other(V18.0, Z83.3) Status:Active Unknown Family Member Name Dates Details Family history of arthritis: Mother, Brother(V17.7, Z82.61) Status:ActiveFamily history of osteoarthritis: Mother(V17.89, Z82.69) Status:ActiveFamily history of gout: Brother(V18.19, Z82.69) Status:ActiveFamily history of malignant neoplasm: Other(V16.9, Z80.9) Status:ActiveFamily history of cerebrovascular accident (CVA): Other(V17.1, Z82.3) Status:ActiveFamily history of colitis: Other(V18.59, Z83.79) Status:ActiveFamily history of cardiac disorder: Other(V17.49, Z82.49) Status:ActiveFamily history of hypertension: Other(V17.49, Z82.49) Status:ActiveFamily history of alcoholism: Other(V17.0, Z81.1) Status:ActiveFamily history of asthma: Other(V17.5, Z82.5) Status:ActiveFamily history of diabetes mellitus: Other(V18.0, Z83.3) Status:Active Unknown Family Member Name Dates Details Family history of arthritis: Mother, Brother(V17.7, Z82.61) Status:ActiveFamily history of osteoarthritis: Mother(V17.89, Z82.69) Status:ActiveFamily history of gout: Brother(V18.19, Z82.69) Status:ActiveFamily history of malignant neoplasm: Other(V16.9, Z80.9) Status:ActiveFamily history of cerebrovascular accident (CVA): Other(V17.1, Z82.3) Status:ActiveFamily history of colitis: Other(V18.59, Z83.79) Status:ActiveFamily history of cardiac disorder: Other(V17.49, Z82.49) Status:ActiveFamily history of hypertension: Other(V17.49, Z82.49) Status:ActiveFamily history of alcoholism: Other(V17.0, Z81.1) Status:ActiveFamily history of asthma: Other(V17.5, Z82.5) Status:ActiveFamily history of diabetes mellitus: Other(V18.0, Z83.3) Status:Active Unknown Family Member Name Dates Details Family history of asthma: Ot her(V17.5, Z82.5) Status:ActiveFamily history of diabetes mellitus: Other(V18.0, Z83.3) Status:ActiveFamily history of alcoholism: Other(V17.0, Z81.1) Status:ActiveFamily history of hypertension: Other(V17.49, Z82.49) Status:ActiveFamily history of cardiac disorder: Other(V17.49, Z82.49) Status:ActiveFamily history of colitis: Other(V18.59, Z83.79) Status:ActiveFamily history of cerebrovascular accident (CVA): Other(V17.1, Z82.3) Status:ActiveFamily history of malignant neoplasm: Other(V16.9, Z80.9) Status:ActiveFamily history of gout: Brother(V18.19, Z82.69) Status:ActiveFamily history of osteoarthritis: Mother(V17.89, Z82.69) Status:ActiveFamily history of arthritis: Mother, Brother(V17.7, Z82.61) Status:Active Unknown Family Member Name Dates Details Family history of arthritis: Mother, Brother(V17.7, Z82.61) Status:ActiveFamily history of osteoarthritis: Mother(V17.89, Z82.69) Status:ActiveFamily history of gout: Brother(V18.19, Z82.69) Status:ActiveFamily history of malignant neoplasm: Other(V16.9, Z80.9) Status:ActiveFamily history of cerebrovascular accident (CVA): Other(V17.1, Z82.3) Status:ActiveFamily history of colitis: Other(V18.59, Z83.79) Status:ActiveFamily history of cardiac disorder: Other(V17.49, Z82.49) Status:ActiveFamily history of hypertension: Other(V17.49, Z82.49) Status:ActiveFamily history of alcoholism: Other(V17.0, Z81.1) Status:ActiveFamily history of asthma: Other(V17.5, Z82.5) Status:ActiveFamily history of diabetes mellitus: Other(V18.0, Z83.3) Status:Active Unknown Family Member Name Dates Details Family history of arthritis: Mother, Brother(V17.7, Z82.61) Status:ActiveFamily history of osteoarthritis: Mother(V17.89, Z82.69) Status:ActiveFamily history of gout: Brother(V18.19, Z82.69) Status:ActiveFamily history of malignant neoplasm: Other(V16.9, Z80.9) Status:ActiveFamily history of cerebrovascular accident (CVA): Other(V17.1, Z82.3) Status:ActiveFamily history of colitis: Other(V18.59, Z83.79) Status:ActiveFamily history of cardiac disorder: Other(V17.49, Z82.49) Status:ActiveFamily history of hypertension: Other(V17.49, Z82.49) Status:ActiveFamily history of alcoholism: Other(V17.0, Z81.1) Status:ActiveFamily history of asthma: Other(V17.5, Z82.5) Status:ActiveFamily history of diabetes mellitus: Other(V18.0, Z83.3) Status:Active Unknown Family Member Name Dates Details Family history of arthritis: Mother, Brother(V17.7, Z82.61) Status:ActiveFamily history of osteoarthritis: Mother(V17.89, Z82.69) Status:ActiveFamily history of gout: Brother(V18.19, Z82.69) Status:ActiveFamily history of malignant neoplasm: Other(V16.9, Z80.9) Status:ActiveFamily history of cerebrovascular accident (CVA): Other(V17.1, Z82.3) Status:ActiveFamily history of colitis: Other(V18.59, Z83.79) Status:ActiveFamily history of cardiac disorder: Other(V17.49, Z82.49) Status:ActiveFamily history of hypertension: Other(V17.49, Z82.49) Status:ActiveFamily history of alcoholism: Other(V17.0, Z81.1) Status:ActiveFamily history of asthma: Other(V17.5, Z82.5) Status:ActiveFamily history of diabetes mellitus: Other(V18.0, Z83.3) Status:Active Unknown Family Member Name Dates Details Family history of arthritis: Mother, Brother(V17.7, Z82.61) Status:ActiveFamily history of osteoarthritis: Mother(V17.89, Z82.69) Status:ActiveFamily history of gout: Brother(V18.19, Z82.69) Status:ActiveFamily history of malignant neoplasm: Other(V16.9, Z80.9) Status:ActiveFamily history of cerebrovascular accident (CVA): Other(V17.1, Z82.3) Status:ActiveFamily history of colitis: Other(V18.59, Z83.79) Status:ActiveFamily history of cardiac disorder: Other(V17.49, Z82.49) Status:ActiveFamily history of hypertension: Other(V17.49, Z82.49) Status:ActiveFamily history of alcoholism: Other(V17.0, Z81.1) Status:ActiveFamily history of asthma: Other(V17.5, Z82.5) Status:ActiveFamily history of diabetes mellitus: Other(V18.0, Z83.3) Status:Active Unknown Family Member Name Dates Details Family history of diabetes m ellitus: Other(V18.0, Z83.3) Status:ActiveFamily history of asthma: Other(V17.5, Z82.5) Status:ActiveFamily history of alcoholism: Other(V17.0, Z81.1) Status:ActiveFamily history of hypertension: Other(V17.49, Z82.49) Status:ActiveFamily history of cardiac disorder: Other(V17.49, Z82.49) Status:ActiveFamily history of colitis: Other(V18.59, Z83.79) Status:ActiveFamily history of cerebrovascular accident (CVA): Other(V17.1, Z82.3) Status:ActiveFamily history of malignant neoplasm: Other(V16.9, Z80.9) Status:ActiveFamily history of gout: Brother(V18.19, Z82.69) Status:ActiveFamily history of osteoarthritis: Mother(V17.89, Z82.69) Status:ActiveFamily history of arthritis: Mother, Brother(V17.7, Z82.61) Status:Active Unknown Family Member Name Dates Details Family history of arthritis: Mother, Brother(V17.7, Z82.61) Status:ActiveFamily history of osteoarthritis: Mother(V17.89, Z82.69) Status:ActiveFamily history of gout: Brother(V18.19, Z82.69) Status:ActiveFamily history of malignant neoplasm: Other(V16.9, Z80.9) Status:ActiveFamily history of cerebrovascular accident (CVA): Other(V17.1, Z82.3) Status:ActiveFamily history of colitis: Other(V18.59, Z83.79) Status:ActiveFamily history of cardiac disorder: Other(V17.49, Z82.49) Status:ActiveFamily history of hypertension: Other(V17.49, Z82.49) Status:ActiveFamily history of alcoholism: Other(V17.0, Z81.1) Status:ActiveFamily history of asthma: Other(V17.5, Z82.5) Status:ActiveFamily history of diabetes mellitus: Other(V18.0, Z83.3) Status:Active Unknown Family Member Name Dates Details Family history of diabetes m ellitus: Other(V18.0, Z83.3) Status:ActiveFamily history of asthma: Other(V17.5, Z82.5) Status:ActiveFamily history of alcoholism: Other(V17.0, Z81.1) Status:ActiveFamily history of hypertension: Other(V17.49, Z82.49) Status:ActiveFamily history of cardiac disorder: Other(V17.49, Z82.49) Status:ActiveFamily history of colitis: Other(V18.59, Z83.79) Status:ActiveFamily history of cerebrovascular accident (CVA): Other(V17.1, Z82.3) Status:ActiveFamily history of malignant neoplasm: Other(V16.9, Z80.9) Status:ActiveFamily history of gout: Brother(V18.19, Z82.69) Status:ActiveFamily history of osteoarthritis: Mother(V17.89, Z82.69) Status:ActiveFamily history of arthritis: Mother, Brother(V17.7, Z82.61) Status:Active Unknown Family Member Name Dates Details Family history of arthritis: Mother, Brother(V17.7, Z82.61) Status:ActiveFamily history of osteoarthritis: Mother(V17.89, Z82.69) Status:ActiveFamily history of gout: Brother(V18.19, Z82.69) Status:ActiveFamily history of malignant neoplasm: Other(V16.9, Z80.9) Status:ActiveFamily history of cerebrovascular accident (CVA): Other(V17.1, Z82.3) Status:ActiveFamily history of colitis: Other(V18.59, Z83.79) Status:ActiveFamily history of cardiac disorder: Other(V17.49, Z82.49) Status:ActiveFamily history of hypertension: Other(V17.49, Z82.49) Status:ActiveFamily history of alcoholism: Other(V17.0, Z81.1) Status:ActiveFamily history of asthma: Other(V17.5, Z82.5) Status:ActiveFamily history of diabetes mellitus: Other(V18.0, Z83.3) Status:Active Unknown Family Member Name Dates Details Family history of arthritis: Mother, Brother(V17.7, Z82.61) Status:ActiveFamily history of osteoarthritis: Mother(V17.89, Z82.69) Status:ActiveFamily history of gout: Brother(V18.19, Z82.69) Status:ActiveFamily history of malignant neoplasm: Other(V16.9, Z80.9) Status:ActiveFamily history of cerebrovascular accident (CVA): Other(V17.1, Z82.3) Status:ActiveFamily history of colitis: Other(V18.59, Z83.79) Status:ActiveFamily history of cardiac disorder: Other(V17.49, Z82.49) Status:ActiveFamily history of hypertension: Other(V17.49, Z82.49) Status:ActiveFamily history of alcoholism: Other(V17.0, Z81.1) Status:ActiveFamily history of asthma: Other(V17.5, Z82.5) Status:ActiveFamily history of diabetes mellitus: Other(V18.0, Z83.3) Status:Active Unknown Family Member Name Dates Details Family history of arthritis: Mother, Brother(V17.7, Z82.61) Status:ActiveFamily history of osteoarthritis: Mother(V17.89, Z82.69) Status:ActiveFamily history of gout: Brother(V18.19, Z82.69) Status:ActiveFamily history of malignant neoplasm: Other(V16.9, Z80.9) Status:ActiveFamily history of cerebrovascular accident (CVA): Other(V17.1, Z82.3) Status:ActiveFamily history of colitis: Other(V18.59, Z83.79) Status:ActiveFamily history of cardiac disorder: Other(V17.49, Z82.49) Status:ActiveFamily history of hypertension: Other(V17.49, Z82.49) Status:ActiveFamily history of alcoholism: Other(V17.0, Z81.1) Status:ActiveFamily history of asthma: Other(V17.5, Z82.5) Status:ActiveFamily history of diabetes mellitus: Other(V18.0, Z83.3) Status:Active Unknown Family Member Name Dates Details Family history of arthritis: Mother, Brother(V17.7, Z82.61) Status:ActiveFamily history of osteoarthritis: Mother(V17.89, Z82.69) Status:ActiveFamily history of gout: Brother(V18.19, Z82.69) Status:ActiveFamily history of malignant neoplasm: Other(V16.9, Z80.9) Status:ActiveFamily history of cerebrovascular accident (CVA): Other(V17.1, Z82.3) Status:ActiveFamily history of colitis: Other(V18.59, Z83.79) Status:ActiveFamily history of cardiac disorder: Other(V17.49, Z82.49) Status:ActiveFamily history of hypertension: Other(V17.49, Z82.49) Status:ActiveFamily history of alcoholism: Other(V17.0, Z81.1) Status:ActiveFamily history of asthma: Other(V17.5, Z82.5) Status:ActiveFamily history of diabetes mellitus: Other(V18.0, Z83.3) Status:Active Unknown Family Member Name Dates Details Family history of arthritis: Mother, Brother(V17.7, Z82.61) Status:ActiveFamily history of osteoarthritis: Mother(V17.89, Z82.69) Status:ActiveFamily history of gout: Brother(V18.19, Z82.69) Status:ActiveFamily history of malignant neoplasm: Other(V16.9, Z80.9) Status:ActiveFamily history of cerebrovascular accident (CVA): Other(V17.1, Z82.3) Status:ActiveFamily history of colitis: Other(V18.59, Z83.79) Status:ActiveFamily history of cardiac disorder: Other(V17.49, Z82.49) Status:ActiveFamily history of hypertension: Other(V17.49, Z82.49) Status:ActiveFamily history of alcoholism: Other(V17.0, Z81.1) Status:ActiveFamily history of asthma: Other(V17.5, Z82.5) Status:ActiveFamily history of diabetes mellitus: Other(V18.0, Z83.3) Status:Active Unknown Family Member Name Dates Details Family history of arthritis: Mother, Brother(V17.7, Z82.61) Status:ActiveFamily history of osteoarthritis: Mother(V17.89, Z82.69) Status:ActiveFamily history of gout: Brother(V18.19, Z82.69) Status:ActiveFamily history of malignant neoplasm: Other(V16.9, Z80.9) Status:ActiveFamily history of cerebrovascular accident (CVA): Other(V17.1, Z82.3) Status:ActiveFamily history of colitis: Other(V18.59, Z83.79) Status:ActiveFamily history of cardiac disorder: Other(V17.49, Z82.49) Status:ActiveFamily history of hypertension: Other(V17.49, Z82.49) Status:ActiveFamily history of alcoholism: Other(V17.0, Z81.1) Status:ActiveFamily history of asthma: Other(V17.5, Z82.5) Status:ActiveFamily history of diabetes mellitus: Other(V18.0, Z83.3) Status:Active Unknown Family Member Name Dates Details Family history of arthritis: Mother, Brother(V17.7, Z82.61) Status:ActiveFamily history of osteoarthritis: Mother(V17.89, Z82.69) Status:ActiveFamily history of gout: Brother(V18.19, Z82.69) Status:ActiveFamily history of malignant neoplasm: Other(V16.9, Z80.9) Status:ActiveFamily history of cerebrovascular accident (CVA): Other(V17.1, Z82.3) Status:ActiveFamily history of colitis: Other(V18.59, Z83.79) Status:ActiveFamily history of cardiac disorder: Other(V17.49, Z82.49) Status:ActiveFamily history of hypertension: Other(V17.49, Z82.49) Status:ActiveFamily history of alcoholism: Other(V17.0, Z81.1) Status:ActiveFamily history of asthma: Other(V17.5, Z82.5) Status:ActiveFamily history of diabetes mellitus: Other(V18.0, Z83.3) Status:Active Unknown Family Member Name Dates Details Family history of arthritis: Mother, Brother(V17.7, Z82.61) Status:ActiveFamily history of osteoarthritis: Mother(V17.89, Z82.69) Status:ActiveFamily history of gout: Brother(V18.19, Z82.69) Status:ActiveFamily history of malignant neoplasm: Other(V16.9, Z80.9) Status:ActiveFamily history of cerebrovascular accident (CVA): Other(V17.1, Z82.3) Status:ActiveFamily history of colitis: Other(V18.59, Z83.79) Status:ActiveFamily history of cardiac disorder: Other(V17.49, Z82.49) Status:ActiveFamily history of hypertension: Other(V17.49, Z82.49) Status:ActiveFamily history of alcoholism: Other(V17.0, Z81.1) Status:ActiveFamily history of asthma: Other(V17.5, Z82.5) Status:ActiveFamily history of diabetes mellitus: Other(V18.0, Z83.3) Status:Active Unknown Family Member Name Dates Details Family history of arthritis: Mother, Brother(V17.7, Z82.61) Status:ActiveFamily history of osteoarthritis: Mother(V17.89, Z82.69) Status:ActiveFamily history of gout: Brother(V18.19, Z82.69) Status:ActiveFamily history of malignant neoplasm: Other(V16.9, Z80.9) Status:ActiveFamily history of cerebrovascular accident (CVA): Other(V17.1, Z82.3) Status:ActiveFamily history of colitis: Other(V18.59, Z83.79) Status:ActiveFamily history of cardiac disorder: Other(V17.49, Z82.49) Status:ActiveFamily history of hypertension: Other(V17.49, Z82.49) Status:ActiveFamily history of alcoholism: Other(V17.0, Z81.1) Status:ActiveFamily history of asthma: Other(V17.5, Z82.5) Status:ActiveFamily history of diabetes mellitus: Other(V18.0, Z83.3) Status:Active Unknown Family Member Name Dates Details Family history of arthritis: Mother, Brother(V17.7, Z82.61) Status:ActiveFamily history of osteoarthritis: Mother(V17.89, Z82.69) Status:ActiveFamily history of gout: Brother(V18.19, Z82.69) Status:ActiveFamily history of malignant neoplasm: Other(V16.9, Z80.9) Status:ActiveFamily history of cerebrovascular accident (CVA): Other(V17.1, Z82.3) Status:ActiveFamily history of colitis: Other(V18.59, Z83.79) Status:ActiveFamily history of cardiac disorder: Other(V17.49, Z82.49) Status:ActiveFamily history of hypertension: Other(V17.49, Z82.49) Status:ActiveFamily history of alcoholism: Other(V17.0, Z81.1) Status:ActiveFamily history of asthma: Other(V17.5, Z82.5) Status:ActiveFamily history of diabetes mellitus: Other(V18.0, Z83.3) Status:Active Unknown Family Member Name Dates Details Family history of arthritis: Mother, Brother(V17.7, Z82.61) Status:ActiveFamily history of osteoarthritis: Mother(V17.89, Z82.69) Status:ActiveFamily history of gout: Brother(V18.19, Z82.69) Status:ActiveFamily history of malignant neoplasm: Other(V16.9, Z80.9) Status:ActiveFamily history of cerebrovascular accident (CVA): Other(V17.1, Z82.3) Status:ActiveFamily history of colitis: Other(V18.59, Z83.79) Status:ActiveFamily history of cardiac disorder: Other(V17.49, Z82.49) Status:ActiveFamily history of hypertension: Other(V17.49, Z82.49) Status:ActiveFamily history of alcoholism: Other(V17.0, Z81.1) Status:ActiveFamily history of asthma: Other(V17.5, Z82.5) Status:ActiveFamily history of diabetes mellitus: Other(V18.0, Z83.3) Status:Active Unknown Family Member Name Dates Details Family history of arthritis: Mother, Brother(V17.7, Z82.61) Status:ActiveFamily history of osteoarthritis: Mother(V17.89, Z82.69) Status:ActiveFamily history of gout: Brother(V18.19, Z82.69) Status:ActiveFamily history of malignant neoplasm: Other(V16.9, Z80.9) Status:ActiveFamily history of cerebrovascular accident (CVA): Other(V17.1, Z82.3) Status:ActiveFamily history of colitis: Other(V18.59, Z83.79) Status:ActiveFamily history of cardiac disorder: Other(V17.49, Z82.49) Status:ActiveFamily history of hypertension: Other(V17.49, Z82.49) Status:ActiveFamily history of alcoholism: Other(V17.0, Z81.1) Status:ActiveFamily history of asthma: Other(V17.5, Z82.5) Status:ActiveFamily history of diabetes mellitus: Other(V18.0, Z83.3) Status:Active Unknown Family Member Name Dates Details Family history of arthritis: Mother, Brother(V17.7, Z82.61) Status:ActiveFamily history of osteoarthritis: Mother(V17.89, Z82.69) Status:ActiveFamily history of gout: Brother(V18.19, Z82.69) Status:ActiveFamily history of malignant neoplasm: Other(V16.9, Z80.9) Status:ActiveFamily history of cerebrovascular accident (CVA): Other(V17.1, Z82.3) Status:ActiveFamily history of colitis: Other(V18.59, Z83.79) Status:ActiveFamily history of cardiac disorder: Other(V17.49, Z82.49) Status:ActiveFamily history of hypertension: Other(V17.49, Z82.49) Status:ActiveFamily history of alcoholism: Other(V17.0, Z81.1) Status:ActiveFamily history of asthma: Other(V17.5, Z82.5) Status:ActiveFamily history of diabetes mellitus: Other(V18.0, Z83.3) Status:Active Unknown Family Member Name Dates Details Family history of arthritis: Mother, Brother(V17.7, Z82.61) Status:ActiveFamily history of osteoarthritis: Mother(V17.89, Z82.69) Status:ActiveFamily history of gout: Brother(V18.19, Z82.69) Status:ActiveFamily history of malignant neoplasm: Other(V16.9, Z80.9) Status:ActiveFamily history of cerebrovascular accident (CVA): Other(V17.1, Z82.3) Status:ActiveFamily history of colitis: Other(V18.59, Z83.79) Status:ActiveFamily history of cardiac disorder: Other(V17.49, Z82.49) Status:ActiveFamily history of hypertension: Other(V17.49, Z82.49) Status:ActiveFamily history of alcoholism: Other(V17.0, Z81.1) Status:ActiveFamily history of asthma: Other(V17.5, Z82.5) Status:ActiveFamily history of diabetes mellitus: Other(V18.0, Z83.3) Status:Active Unknown Family Member Name Dates Details Family history of arthritis: Mother, Brother(V17.7, Z82.61) Status:ActiveFamily history of osteoarthritis: Mother(V17.89, Z82.69) Status:ActiveFamily history of gout: Brother(V18.19, Z82.69) Status:ActiveFamily history of malignant neoplasm: Other(V16.9, Z80.9) Status:ActiveFamily history of cerebrovascular accident (CVA): Other(V17.1, Z82.3) Status:ActiveFamily history of colitis: Other(V18.59, Z83.79) Status:ActiveFamily history of cardiac disorder: Other(V17.49, Z82.49) Status:ActiveFamily history of hypertension: Other(V17.49, Z82.49) Status:ActiveFamily history of alcoholism: Other(V17.0, Z81.1) Status:ActiveFamily history of asthma: Other(V17.5, Z82.5) Status:ActiveFamily history of diabetes mellitus: Other(V18.0, Z83.3) Status:Active Unknown Family Member Name Dates Details Family history of arthritis: Mother, Brother(V17.7, Z82.61) Status:ActiveFamily history of osteoarthritis: Mother(V17.89, Z82.69) Status:ActiveFamily history of gout: Brother(V18.19, Z82.69) Status:ActiveFamily history of malignant neoplasm: Other(V16.9, Z80.9) Status:ActiveFamily history of cerebrovascular accident (CVA): Other(V17.1, Z82.3) Status:ActiveFamily history of colitis: Other(V18.59, Z83.79) Status:ActiveFamily history of cardiac disorder: Other(V17.49, Z82.49) Status:ActiveFamily history of hypertension: Other(V17.49, Z82.49) Status:ActiveFamily history of alcoholism: Other(V17.0, Z81.1) Status:ActiveFamily history of asthma: Other(V17.5, Z82.5) Status:ActiveFamily history of diabetes mellitus: Other(V18.0, Z83.3) Status:Active Unknown Family Member Name Dates Details Family history of diabetes m ellitus: Other(V18.0, Z83.3) Status:ActiveFamily history of asthma: Other(V17.5, Z82.5) Status:ActiveFamily history of alcoholism: Other(V17.0, Z81.1) Status:ActiveFamily history of hypertension: Other(V17.49, Z82.49) Status:ActiveFamily history of cardiac disorder: Other(V17.49, Z82.49) Status:ActiveFamily history of colitis: Other(V18.59, Z83.79) Status:ActiveFamily history of cerebrovascular accident (CVA): Other(V17.1, Z82.3) Status:ActiveFamily history of malignant neoplasm: Other(V16.9, Z80.9) Status:ActiveFamily history of gout: Brother(V18.19, Z82.69) Status:ActiveFamily history of osteoarthritis: Mother(V17.89, Z82.69) Status:ActiveFamily history of arthritis: Mother, Brother(V17.7, Z82.61) Status:Active Unknown Family Member Name Dates Details Family history of arthritis: Mother, Brother(V17.7, Z82.61) Status:ActiveFamily history of osteoarthritis: Mother(V17.89, Z82.69) Status:ActiveFamily history of gout: Brother(V18.19, Z82.69) Status:ActiveFamily history of malignant neoplasm: Other(V16.9, Z80.9) Status:ActiveFamily history of cerebrovascular accident (CVA): Other(V17.1, Z82.3) Status:ActiveFamily history of colitis: Other(V18.59, Z83.79) Status:ActiveFamily history of diabetes mellitus: Other(V18.0, Z83.3) Status:ActiveFamily history of asthma: Other(V17.5, Z82.5) Status:ActiveFamily history of alcoholism: Other(V17.0, Z81.1) Status:ActiveFamily history of hypertension: Other(V17.49, Z82.49) Status:ActiveFamily history of cardiac disorder: Other(V17.49, Z82.49) Status:Active Unknown Family Member Name Dates Details Family history of arthritis: Mother, Brother(V17.7, Z82.61) Status:ActiveFamily history of osteoarthritis: Mother(V17.89, Z82.69) Status:ActiveFamily history of gout: Brother(V18.19, Z82.69) Status:ActiveFamily history of malignant neoplasm: Other(V16.9, Z80.9) Status:ActiveFamily history of cerebrovascular accident (CVA): Other(V17.1, Z82.3) Status:ActiveFamily history of colitis: Other(V18.59, Z83.79) Status:ActiveFamily history of cardiac disorder: Other(V17.49, Z82.49) Status:ActiveFamily history of hypertension: Other(V17.49, Z82.49) Status:ActiveFamily history of alcoholism: Other(V17.0, Z81.1) Status:ActiveFamily history of asthma: Other(V17.5, Z82.5) Status:ActiveFamily history of diabetes mellitus: Other(V18.0, Z83.3) Status:Active Unknown Family Member Name Dates Details Family history of arthritis: Mother, Brother(V17.7, Z82.61) Status:ActiveFamily history of osteoarthritis: Mother(V17.89, Z82.69) Status:ActiveFamily history of gout: Brother(V18.19, Z82.69) Status:ActiveFamily history of malignant neoplasm: Other(V16.9, Z80.9) Status:ActiveFamily history of cerebrovascular accident (CVA): Other(V17.1, Z82.3) Status:ActiveFamily history of colitis: Other(V18.59, Z83.79) Status:ActiveFamily history of cardiac disorder: Other(V17.49, Z82.49) Status:ActiveFamily history of hypertension: Other(V17.49, Z82.49) Status:ActiveFamily history of alcoholism: Other(V17.0, Z81.1) Status:ActiveFamily history of asthma: Other(V17.5, Z82.5) Status:ActiveFamily history of diabetes mellitus: Other(V18.0, Z83.3) Status:Active Relationship Condition Age at Onset Recorded Date/T nevaeh father Family history of other condition Unknown family memberFamily history of other conditionUnknownNot SpecifiedHistory of strokeUnknownHypertensionUnknownnatural sonMultiple sclerosisUnknownsister AnxietyUnknown Relationship Condition Age at Onset Recorded Date/T nevaeh father Family history of other condition Unknown family memberFamily history of other conditionUnknownmotherHistory of stroke UnknownHypertensionUnknownsonMultiple sclerosisUnknownsisterAnxietyUnknown Relationship Condition Age at Onset Recorded Date/T nevaeh father Family history of other condition Unknown Mitral valve prolapseUnknownfamily memberFamily history of other condition UnknownmotherHistory of strokeUnknownHypertensionUnknownsonMultiple sclerosis UnknownsisterAnxietyUnknown Family Member Condition Father Alive Mother Family Member Condition Father Alive Mother Advance Directives No Advanced Directives Records FoundDocuments on File TypeDate RecordedPatient RepresentativeExplanationAdvance Directives and Living WillPower of AttorneyCode StatusDate ActivatedDate InactivatedCommentsFull Code 03/02/2018 8:55 AM03/02/2018 12:03 PMFull Code11/28/2013 12:25 PM11/29/2013 3:18 AMFull Code01/08/2013 3:54 PM10 3:01 PMTypeDate RecordedPatient RepresentativeExplanationAdvance Directives and Living WillPower of AttorneyCode StatusDate ActivatedDate InactivatedCommentsFull Code11/15/2019 12:37 PMFull Code 03/02/2018 8:55 AM03/02/2018 12:03 PMFull Code11/28/2013 12:25 PM11/29/2013 3:18 AMFull Code01/08/2013 3:54 PM10 3:01 PMCode StatusDate ActivatedDate InactivatedCommentsFull Code11/15/2019 12:37 PM11/16/2019 4:59 PMFull Code 03/02/2018 8:55 AM03/02/2018 12:03 PMCode StatusDate ActivatedDate Inactivated CommentsFull Code12/24/2021 11:25 AMFull Code11/15/2019 12:37 PM11/16/2019 4:59 PM Advance Directive Response Recorded Date/ Time Advance Directives No January 19, 2017 9:13am Advance Directive Response Recorded Date/ Time Advance Directives No January 19, 2017 10:13am History of Present Illness * Erinn Alexis APRN - CNP - 11/09/2019 8:00 AM EDT Covid testing to be done 11/09/2019 & will self quarantine until OR 11/15/2019. Renée-Hex wash instructions given to patient to be done Tuesday11/12/2019, Tuesday11.13.2019, Tuesday11/14/2019. Medical clearance / H & PE by Dr. Leonel Juan ( [facility] ) dated 10/29/2019--paper copy on chart. documented in this encounter* Delicia Phillips OTA - 11/16/2019 10:25 AM EDT [facility]CCUP[facility] THERAPY ORTHOPEDIC TREATMENT NOTE Date: 11/16/2019 Patient Name: Caty Hills Account: [id number] : 1960 (59 y.o.) Room: [place] [address] Chart Review: Diagnosis: The encounter diagnosis was Status post total left knee replacement. Restrictions: Restrictions/Precautions Restrictions/Precautions: Weight Bearing, Fall Risk Position Activity Restriction Other position/activity restrictions: knee immobilizer until (+) SLR Per Physical Therapy note, pt able to perform +SLE. KI discharged (11-16-19) Subjective: Patient states: I'm gonna try. Pain: Start of tx: Pre Treatment Pain Screening Pain at present: 5 Scale Used: Numeric Score Intervention List: Patient able to continue with treatment, Patient declined any intervention Comments / Details: Nursing in room administering pain medication upon therapist arrival End of tx: Pain Assessment Patient Currently in Pain: Yes Pain Assessment: 0-10 Pain Level: 5 Pain Type: Acute pain, Surgical pain Pain Location: Knee Pain Orientation: Left Pain Descriptors: Aching, Sore Pain Frequency: Continuous Clinical Progression: Not changed Response to Pain Intervention: Patient Satisfied Objective: Sit <> Stand transfers: OR. Pt performed functional mobility throughout room environment using a FWW with Supervision. ADL shower session completed as follows. ADL ADL Feeding: Independent Grooming: Modified independent (To perform oral care and hair care while standing at sink) UE Bathing: Modified independent (Use of detachable shower head) LE Bathing: Modified independent UE Dressing: Setup (To don t-shirt) LE Dressing: Supervision, Setup, Verbal cueing, Increased time to complete (To doff/don bilateral socks and don underwear/shorts. VCs to dress surgical leg first.) Toileting: Modified independent Toilet Transfers Toilet - Technique: Ambulating Equipment Used: Grab bars Toilet Transfer: Modified independent Toilet Transfers Comments: Verbal cues for technique Shower Transfers Shower - Transfer From: Walker Shower - Transfer Type: To and From Shower - Transfer To: Shower seat with back Shower - Technique: Ambulating Shower Transfers: Modified independence REILLY channed: Yes Therapy clancy for assistance levels Independent = Pt. is able to perform task with no assistance but may require a device Stand by assistance = Pt. does not perform task at an independent level but does not need physical assistance, requires verbal cues Minimal, Moderate, Maximal Assistance = Pt. requires physical assistance (25%, 50%, 75% assist fromhelper) for task but is able to actively participate in task Dependent = Pt. requires total assistance with task and is not able to actively participate with task completion Cognition: Cognition Overall Cognitive Status: [facility] Treatment consisted of: ADL training Assessment/Discharge Disposition: Performance deficits / Impairments: Decreased functional mobility , Decreased ADL status, Decreasedendurance, Decreased balance, Decreased high-level IADLs Prognosis: Good Discharge Recommendations: Continue to assess pending progress History: Pt's medical history is moderately complex Exam: Pt. has 5 performance deficits Assistance / Modification: Pt. requires min assist [employer] [facility] Daily Activity Inpatient How much help for putting on and taking off regular lower body clothing?: A Little How much help for Bathing?: None How much help for Toileting?: None How much help for putting on and taking off regular upper body clothing?: None How much help for taking care of personal grooming?: None How much help for eating meals?: None AM-[facility] Inpatient Daily Activity Raw Score: 23 AM-[facility] Inpatient ADL T-Scale Score : 51.12 ADL Inpatient CMS 0-100% Score: 15.86 ADL Inpatient CMS G-Code Modifier : CI Plan: Continue OT per POC Goals/Plan of care addressed during this session: Improve [place] with ADLs and Improve [place] with Functional Transfers Minutes: OT Individual Minutes Time In: 0957 Time Out: 1022 Minutes: 25 ADL trainin minutes Electronically signed by: FAVIO Cisneros 11/16/2019, 10:30 AM * Mary Bianchi, OTR/Car - 11/15/2019 4:28 PM EDT [facility] OCCUPATIONAL THERAPY EVALUATION - ACUTE NAME: Caty Hills : 1960 (59 y.o.) CODE STATUS: Full Code Room: [place] [address] Date of Service: 11/15/2019 Patient Diagnosis(es): Status post total left knee replacement [Z96.652] No chief complaint on file. Patient Active Problem List Diagnosis Date Noted Osteoarthritis of left knee 11/09/2019 Gastroesophageal reflux disease 11/09/2019 Depression 11/09/2019 Tear of lateral meniscus of left knee 02/22/2018 Tear of medial meniscus of left knee 02/22/2018 Rheumatoid arthritis (HCC) 02/22/2018 DDD (degenerative disc disease), lumbar 01/08/2013 Past Medical History: Diagnosis Date Back pain, chronic Degenerative disc disease Fibromyalgia Hypertension meds since 2016 Leg pain, left Nausea & vomiting Numbness and tingling of left leg PONV (postoperative nausea and vomiting) Wears glasses Past Surgical History: Procedure Laterality Date BACK SURGERY 01/08/13 lumbar fusion [id number] CARPAL TUNNEL RELEASE Bilateral 1990s CHOLECYSTECTOMY 2015 COLONOSCOPY CYST REMOVAL neck / benign ENDOSCOPY, COLON, DIAGNOSTIC HYSTERECTOMY 1996 [facility] KNE SURG W/MENISCECTOMY MED/LAT W/SHVG Left 03/02/2018 LEFT KNEE ARTHROSCOPIC MEDIAL AND LATERAL MENISCECTOMY KNEE performed by Rodney Lamb MD [facility] Restrictions Restrictions/Precautions: Weight Bearing, Fall Risk Lower Extremity Weight Bearing Restrictions Left Lower Extremity Weight Bearing: Weight Bearing As Tolerated Position Activity Restriction Other position/activity restrictions: knee immobilizer until (+) SLR Safety Devices: Safety Devices Safety Devices in place: Yes Type of devices: All fall risk precautions in place Subjective Pre Treatment Pain Screening Pain at present: 5 Scale Used: Numeric Score Intervention List: Patient able to continue with treatment, Patient declined any intervention Comments / Details: Pt. states she is due for pain medication at 4:45 Pain Reassessment: Pain Assessment Patient Currently in Pain: Yes Pain Assessment: 0-10 Pain Level: 5 Pain Type: Surgical pain Pain Location: Knee Pain Orientation: Left Prior Level of Function: Social/Functional History Lives With: Spouse Type of Home: House Home Layout: One level Home Access: Stairs to enter with rails Entrance Stairs - Number of Steps: 5 Bathroom Shower/Tub: Tub/Shower unit Home Equipment: Crutches ADL Assistance: Independent Homemaking Assistance: Independent Ambulation Assistance: Independent(no AD) Transfer Assistance: Independent Active Dynamic Balancer: Yes 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 alert and attentive, pleasant, knee immobilizer adjusted for fit Cognition Status: Cognition Overall Cognitive Status: WNL Perception Status: Perception Overall Perceptual Status: WFL Sensation Status: Sensation Overall Sensation Status: WNL Vision and Hearing Status: Vision Vision: Within Functional Limits Hearing Hearing: Within functional limits ROM: LUE AROM (degrees) LUE AROM : WNL Left Hand AROM (degrees) Left Hand AROM: WNL RUE AROM (degrees) RUE AROM : WNL Right Hand AROM (degrees) Right Hand AROM: WNL Strength: LUE Strength Gross LUE Strength: WFL L Hand General: 4/5 LUE Strength Comment: 4/5 all planes RUE Strength Gross RUE Strength: WFL R Hand General: 4/5 RUE Strength Comment: 4/5 all planes Coordination, Tone, Quality of Movement: Tone RUE RUE Tone: Normotonic Tone LUE LUE Tone: Normotonic Coordination Movements Are Fluid And Coordinated: Yes Hand Dominance: Hand Dominance Hand Dominance: Right ADL Status: ADL Feeding: Independent Grooming: Stand by assistance UE Bathing: Stand by assistance LE Bathing: Minimal assistance UE Dressing: Stand by assistance LE Dressing: Minimal assistance Toileting: Stand by assistance Additional Comments: Simulated ADLs as above. Pt. limited by pain and knee immobilizer this date Toilet Transfers Toilet - Technique: Ambulating Equipment Used: Grab bars Toilet Transfer: Stand by assistance Toilet Transfers Comments: Verbal cues for technique Therapy clancy for assistance levels Independent = Pt. is able to perform task with no assistance but may require a device Stand by assistance = Pt. does not perform task at an independent level but does not need physical assistance, requires verbal cues Minimal, Moderate, Maximal Assistance = Pt. requires physical assistance (25%, 50%, 75% assist fromhelper) for task but is able to actively participate in task Dependent = Pt. requires total assistance with task and is not able to actively participate with task completion Functional Mobility: Functional Mobility Functional - Mobility Device: Rolling Walker Activity: To/from bathroom Assist Level: Stand by assistance Functional Mobility Comments: Initially min verbal cues for technique and transfers. Increased timefor initial mobility but G safety Transfers Sit to stand: Stand by assistance Stand to sit: Stand by assistance Bed Mobility Bed mobility Supine to Sit: Stand by assistance Comment: Up to chair at end of xt Seated and Standing Balance: Balance Sitting Balance: Independent Standing Balance: Stand by assistance Functional Endurance: Activity Tolerance Activity Tolerance: Patient Tolerated treatment well D/C Recommendations: OT D/C RECOMMENDATIONS REQUIRES OT FOLLOW UP: Yes Equipment Recommendations: OT Equipment Recommendations Other: Continue to assess OT Education: OT Education OT Education: OT Role, Plan of Care Patient Education: Educated pt. on role of acute care OT Barriers to Learning: None OT Follow Up: OT D/C RECOMMENDATIONS REQUIRES OT FOLLOW UP: Yes Assessment/Discharge Disposition: Assessment: Pt. is a 59 year old woman from home who presents to [facility] for scheduled knee replacement sx. Pt. demonstrates the above deficits which impact her ability to perform ADLs and IADLs. Pt. would benefit from OT to maximize independence and safety with ADL tasks. Performance deficits / Impairments: Decreased functional mobility , Decreased ADL status, Decreasedendurance, Decreased balance, Decreased high-level IADLs Prognosis: Good Discharge Recommendations: Continue to assess pending progress Decision Making: Medium Complexity History: Pt's medical history is moderately complex Exam: Pt. has 5 performance deficits Assistance / Modification: Pt. requires min assist Six Click Score How much help for putting on and taking off regular lower body clothing?: A Little How much help for Bathing?: A Little How much help for Toileting?: A Little How much help for putting on and taking off regular upper body clothing?: A Little How much help for taking care of personal grooming?: None How much help for eating meals?: None AM-PAC Inpatient Daily Activity Raw Score: 20 AM-[facility] Inpatient ADL T-Scale Score : 42.03 ADL Inpatient CMS 0-100% Score: 38.32 Plan: Plan Times per week: 1-3x Plan weeks: Length of acute stay Current Treatment Recommendations: Balance Training, Functional Mobility Training, Endurance Training, Safety Education & Training, Patient/Caregiver Education & Training Goals: Patient will: - Improve functional endurance to tolerate/complete 30 mins of ADL's - Be Mod I in UB ADLs - Be Mod I in LB ADLs - Be Mod I in ADL transfers without LOB - Be Mod I in toileting tasks - Access appropriate D/C site with as few architectural barriers as possible. - Sequence self-care tasks with no verbal cues for safety Patient Goal: Patient goals : I want to get home Discussed and agreed upon: Yes Comments: Therapy Time: OT Individual Minutes Time In: 1545 Time Out: 1603 Minutes: 18 Eval: 18 minutes Electronically signed by: Mary Bianchi OTR/L 11/15/2019, 4:28 PM * Simi Sy, PT - 11/15/2019 3:53 PM EDT Physical Therapy Med Surg Initial Assessment Facility/Department: [address] NEURO Room: 22/[place] [address] NAME: Caty Hills : 1960 (59 y.o.) CODE STATUS: Full Code Date of Service: 11/15/2019 Patient Diagnosis(es): Status post total left knee replacement [Z96.652] No chief complaint on file. Patient Active Problem List Diagnosis Date Noted Osteoarthritis of left knee 11/09/2019 Gastroesophageal reflux disease 11/09/2019 Depression 11/09/2019 Tear of lateral meniscus of left knee 02/22/2018 Tear of medial meniscus of left knee 02/22/2018 Rheumatoid arthritis (HCC) 02/22/2018 DDD (degenerative disc disease), lumbar 01/08/2013 Past Medical History: Diagnosis Date Back pain, chronic Degenerative disc disease Fibromyalgia Hypertension meds since 2016 Leg pain, left Nausea & vomiting Numbness and tingling of left leg PONV (postoperative nausea and vomiting) Wears glasses Past Surgical History: Procedure Laterality Date BACK SURGERY 01/08/13 lumbar fusion l5-s1 CARPAL TUNNEL RELEASE Bilateral 1990s CHOLECYSTECTOMY 2016 COLONOSCOPY CYST REMOVAL neck / benign ENDOSCOPY, COLON, DIAGNOSTIC HYSTERECTOMY 1997 PA ARTH[place] KNE SURG W/MENISCECTOMY MED/LAT W/SHVG Left 03/02/2018 LEFT KNEE ARTHROSCOPIC MEDIAL AND LATERAL MENISCECTOMY KNEE performed by Rodney Lamb MD [facility] Chart Reviewed: Yes Patient assessed for rehabilitation services?: Yes Family / Caregiver Present: No General Comment Comments: Pt awake in bed, agrees to PT eval. Restrictions: Restrictions/Precautions: Weight Bearing, Fall Risk Lower Extremity Weight Bearing Restrictions Left Lower Extremity Weight Bearing: Weight Bearing As Tolerated Position Activity Restriction Other position/activity restrictions: knee immobilizer until (+) SLR SUBJECTIVE: Pain Pre Treatment Pain Screening Pain at present: 5 Intervention List: Patient able to continue with treatment;Nurse/physician notified Post Treatment Pain Screening: Pain Screening Patient Currently in Pain: Yes Pain Assessment Pain Level: 5 Prior Level of Function: Social/Functional History Lives With: Spouse Type of Home: House Home Layout: One level Home Access: Stairs to enter with rails Entrance Stairs - Number of Steps: 5 Home Equipment: Crutches ADL Assistance: Independent Homemaking Assistance: Independent Ambulation Assistance: Independent(no AD) Transfer Assistance: Independent Active Dynamic Balancer: Yes 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 [employer] OBJECTIVE: Vision: Within Functional Limits Hearing: Within functional limits Cognition: Overall Orientation Status: Within Functional Limits Follows Commands: Within Functional Limits ROM: RLE AROM: WFL LLE AROM : WFL LLE General AROM: knee NT Strength: Strength RLE Strength RLE: WFL Strength LLE Comment: >/= 3/5 Neuro: Balance Sitting - Static: Good Sitting - Dynamic: Good Standing - Static: Fair Standing - Dynamic: Fair Bed mobility Supine to Sit: Stand by assistance Transfers Sit to Stand: Stand by assistance Stand to sit: Stand by assistance Bed to Chair: Stand by assistance(cues for safety and sequencing) Ambulation Ambulation?: Yes Ambulation 1 Surface: level tile Device: Rolling Walker Other Apparatus: Knee Immobilizer Assistance: Stand by assistance Quality of Gait: antalgic, step-to pattern Distance: 30 ft x2 Activity Tolerance Activity Tolerance: Patient Tolerated treatment well Exercises Comments: Pt instructed in anti-embolics while up in chair including ankle pumps, quad sets, and glute sets; educated with frequency and dosage of HEP and PT POC while in-house. PT Education PT Education: Goals;PT Role;Plan of Care;General Safety;Home Exercise Program;Equipment;Transfer Training;Gait Training;Precautions ASSESSMENT: Body structures, Functions, Activity limitations: Decreased functional mobility ;Decreased balance;Decreased strength;Decreased ROM;Increased pain Decision Making: Medium Complexity History: medium Exam: high Clinical Presentation: medium Prognosis: Good DISCHARGE RECOMMENDATIONS: Discharge Recommendations: Patient would benefit from continued therapy after discharge Assessment: Pt demonstrates the above deficits and decline in functional mobility s/p L TKA. Pt would benefit from physical therapy to address above deficits and allow for safe return home at highestlevel of function, decrease risk for falls, and improve QOL. REQUIRES PT FOLLOW UP: Yes PLAN OF CARE: Plan Times per week: 5-7 Times per day: Twice a day Current Treatment Recommendations: Strengthening, Transfer Training, Neuromuscular Re-education, Patient/Caregiver Education & Training, Equipment Evaluation, Education, & procurement, Pain Management, ROM, Balance Training, Gait Training, Home Exercise Program, Functional Mobility Training, Stair training, Safety Education & Training, Modalities Safety Devices Type of devices: Call light within reach, Chair alarm in place Goals: Patient goals : to go home Short term goals Short term goal 1: pt to be indep with bed mobility Short term goal 2: pt to be supervision with transfers Short term goal 3: pt to ambulate >100 ft with supervision with WW Short term goal 4: pt to navigate 4 steps with 1 HR and SBA [facility] (6 CLICK) BASIC MOBILITY AM-PAC Inpatient Mobility Raw Score : 17 Therapy Time: Individual Time In 1545 Time Out 1603 Minutes 18 Simi Sy PT, 11/15/19 at 4:16 PM Definitions for assistance levels Independent = pt does not require any physical supervision or assistance from another person for activity completion. Device may be needed. Stand by assistance = pt requires verbal cues or instructions from another person, close to but nottouching, to perform the activity Minimal assistance= pt performs 75% or more of the activity; assistance is required to complete theactivity Moderate assistance= pt performs 50% of the activity; assistance is required to complete the activity Maximal assistance = pt performs 25% of the activity; assistance is required to complete the activity Dependent = pt requires total physical assistance to accomplish the task * Born, Rupert Clarke, PERMANENT WAVER - ARTICULATION OFFICER - 11/15/2019 1:34 PM EDT Progress Note Patient: Caty Hills Unit/Bed: N222/N222-01 Date of : 1960 Acct: [id number] Admitting Diagnosis: Status post total left knee replacement [Z96.652] Date: 11/15/2019 Hospital Day: 0 Chief Complaint: Left knee pain Subjective S/P LTKR, patient has no post-operative complaints at this time. She is resting well in bed. Deniesany chest pain, shortness of breath, dizziness, lightheadedness, N/V/D, abdominal pain. Review of Systems: Review of Systems Constitutional: Negative for appetite change and fever. HENT: Negative for drooling, ear pain, sore throat, trouble swallowing and voice change. Respiratory: Negative for cough and shortness of breath. Cardiovascular: Negative for chest pain. Gastrointestinal: Negative for abdominal pain, constipation, diarrhea, nausea and vomiting. Genitourinary: Negative for decreased urine volume and dysuria. Musculoskeletal: Negative for arthralgias and back pain. Skin: Positive for wound (left knee incision from surgery, surgical dressing remains in place). Negative for color change. Neurological: Negative for dizziness, weakness, light-headedness and headaches. Psychiatric/Behavioral: Negative for agitation and behavioral problems. All other systems reviewed and are negative. Physical Examination: BP (!) 114/52 Pulse 65 Temp 97.2 F (36.2 C) (Oral) Resp 16 Ht 5' 7 (1.702 m) Wt 237 lb (107.5 kg) SpO2 100% BMI 37.12 kg/m Physical Exam Vitals signs and nursing note reviewed. Constitutional: General: She is not in acute distress. Appearance: Normal appearance. She is well-developed. HENT: Head: Normocephalic and atraumatic. Nose: Nose normal. Mouth/Throat: Mouth: Mucous membranes are moist. Eyes: General: Right eye: No discharge. Left eye: No discharge. Conjunctiva/sclera: Conjunctivae normal. Neck: Musculoskeletal: Normal range of motion and neck supple. No neck rigidity or muscular tenderness. Vascular: No JVD. Trachea: No tracheal deviation. Cardiovascular: Rate and Rhythm: Normal rate. Pulmonary: Effort: Pulmonary effort is normal. Breath sounds: Normal breath sounds. Abdominal: General: Bowel sounds are normal. Palpations: Abdomen is soft. Musculoskeletal: Normal range of motion. Legs: Lymphadenopathy: Cervical: No cervical adenopathy. Skin: General: Skin is warm and dry. Capillary Refill: Capillary refill takes less than 2 seconds. Neurological: Mental Status: She is alert and oriented to person, place, and time. Psychiatric: Mood and Affect: Mood normal. Behavior: Behavior normal. LABS: CBC: Lab Results Component Value Date WBC 4.8 11/09/2019 RBC 4.51 11/09/2019 HGB 14.1 11/09/2019 HCT 41.7 11/09/2019 MCV 92.5 11/09/2019 MCH 31.3 11/09/2019 MCHC 33.9 11/09/2019 RDW 12.3 11/09/2019 PLT 198 11/09/2019 MPV 8.8 12/21/2012 CBC with Differential: Lab Results Component Value Date WBC 4.8 11/09/2019 RBC 4.51 11/09/2019 HGB 14.1 11/09/2019 HCT 41.7 11/09/2019 PLT 198 11/09/2019 MCV 92.5 11/09/2019 MCH 31.3 11/09/2019 MCHC 33.9 11/09/2019 RDW 12.3 11/09/2019 LYMPHOPCT 42 12/21/2012 MONOPCT 10 12/21/2012 BASOPCT 0 12/21/2012 MONOSABS 0.80 12/21/2012 LYMPHSABS 3.50 12/21/2012 EOSABS 0.10 12/21/2012 BASOSABS 0.00 12/21/2012 DIFFTYPE NOT REPORTED 12/21/2012 CMP: Lab Results Component Value Date NA 138 11/09/2019 K 3.9 11/09/2019 CL 103 11/09/2019 CO2 22 11/09/2019 BUN 20 11/09/2019 CREATININE 0.74 11/09/2019 GFRAA >60.0 11/09/2019 LABGLOM >60.0 11/09/2019 GLUCOSE 90 11/09/2019 CALCIUM 9.4 11/09/2019 BMP: Lab Results Component Value Date NA 138 11/09/2019 K 3.9 11/09/2019 CL 103 11/09/2019 CO2 22 11/09/2019 BUN 20 11/09/2019 CREATININE 0.74 11/09/2019 CALCIUM 9.4 11/09/2019 GFRAA >60.0 11/09/2019 LABGLOM >60.0 11/09/2019 GLUCOSE 90 11/09/2019 Magnesium: No results found for: MG Troponin: No results found for: TROPONINI EKG: Not warranted from ortho standpoint Assessment: There are no active hospital problems to display for this patient. Plan: 1. Pain control as directed 2. OOB 3. PT/OT 4. DVT PPX as directed 5. Plan for discharge tomorrow with HHC 6. JESSE completed 7. HHC order placed 8. Home going prescriptions placed in patients chart. Electronically signedby WU Hightower CNP on 11/15/2019 at 1:40 PM * Pily King RN - 11/15/2019 12:[address] Gudino notified of pt c/o a PEREZ, Toradol was ordered but not given d/t pt having dose in OR, DR Gudino came to bedside to assess pt , awaiting new orders documented in this encounter Assessments Diagnosis Osteoarthritis of left knee Osteoarthrosis, unspecified whether generalized or localized, lower leg Diagnosis Status post total left knee replacement Discharge Instructions * Discharge Instr - Activity* Dalia Alexis RN - 11/16/2019 12:53 PM EDT Up as tolerated with walker. * Discharge Instr - Diet* Dalia Alexis RN - 11/16/2019 12:53 PM EDT ? Good nutrition is important when healing from an illness, injury, or surgery. Follow any nutrition recommendations given to you during your hospital stay. ? If you were given an oral nutrition supplement while in the hospital, continue to take this supplement at home. You can take it with meals, in-between meals, and/or before bedtime. These supplements can be purchased at most local grocery stores, pharmacies, and [employer]. ? If you have any questions about your diet or nutrition, call the hospital and ask for the dietitian. General diet. * Discharge Instr - JESSE* Dalia Alexis RN - 11/15/2019 12:48 PM EDT Continuity of Care Form Patient Name: Caty Hills : 1960 Admit date: 11/15/2019 Discharge date: 11/16/2019 Code Status Order: Full Code Advance Directives: Advance Care Flowsheet Documentation Date/Time Healthcare Directive Type of Healthcare Directive Copy in Chart Healthcare Agent Appointed Healthcare Agent's Name Healthcare Agent's Phone Number 11/15/19 0813 No, patient does not have an advance directive for healthcare treatment -- -- -- -- -- Admitting Physician: Rodney Lamb MD PCP: Anibal Juan DO Discharging Nurse: Dalia FRANCE Discharging Hospital Unit/Room#: N222/N222-01 Discharging Unit Emergency Contact: Extended Emergency Contact Information Primary Emergency Contact: Jose Carlos Hills Address: [address] [place] [address] Mobile Relation: Spouse Secondary Emergency Contact: Angi Baez Mobile Relation: Other Past Surgical History: Past Surgical History: Procedure Laterality Date BACK SURGERY 01/08/13 lumbar fusion l5-s1 CARPAL TUNNEL RELEASE Bilateral 1990s CHOLECYSTECTOMY 2016 COLONOSCOPY CYST REMOVAL neck / benign ENDOSCOPY, COLON, DIAGNOSTIC HYSTERECTOMY 1996 [place] AR[place] KNE SURG W/MENISCECTOMY MED/LAT W/SHVG Left 03/02/2018 LEFT KNEE ARTHROSCOPIC MEDIAL AND LATERAL MENISCECTOMY KNEE performed by Rodney Lamb MD [facility] Immunization History: There is no immunization history on file for this patient. Active Problems: Patient Active Problem List Diagnosis Code DDD (degenerative disc disease), lumbar M51.36 Tear of lateral meniscus of left knee S83.282A Tear of medial meniscus of left knee S83.242A Rheumatoid arthritis (HCC) M06.9 Osteoarthritis of left knee M17.12 Gastroesophageal reflux disease K21.9 Depression F32.9 Isolation/Infection: Isolation No Isolation Patient Infection Status Infection Onset Added Last Indicated Last Indicated By Review Planned Expiration Resolved Resolved By None active Resolved COVID-19 Rule Out 11/09/19 11/09/19 11/09/19 Covid-19 Ambulatory (Ordered) 11/11/19 Rule-Out Test Resulted Nurse Assessment: Last Vital Signs: BP (!) 98/54 Pulse 66 Temp 97.5 F (36.4 C) (Temporal) Resp 9 Ht 5' 7 (1.702 m) Wt 237 lb (107.5 kg) SpO2 96% BMI 37.12 kg/m Last documented pain score (0-10 scale): Pain Level: 7 Last Weight: Wt Readings from Last 1 Encounters: 11/15/19 237 lb (107.5 kg) Mental Status: oriented, alert, thought processes intact and able to concentrate and follow conversation IV Access: - None Nursing Mobility/ADLs: Walking Assisted Transfer Assisted Bathing Assisted Dressing Assisted Toileting Assisted Feeding Independent Batch And Furnace Manager Independent Med Delivery whole Wound Care Documentation and Therapy: Incision 01/08/13 Back Lower (Active) Number of days: 2501 Elimination: Continence: Bowel: Yes Bladder: Yes Urinary Catheter: None Colostomy/Ileostomy/Ileal Conduit: No 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 Safety Concerns: At Risk for Falls Impairments/Disabilities: Vision and difficulty with ambulation Nutrition Therapy: Current Nutrition Therapy: - Oral Diet: General Routes of Feeding: Oral Liquids: Thin Liquids Daily Fluid Restriction: no Last Modified Barium Swallow with Video (Video Swallowing Test): not done Treatments at the Time of Hospital Discharge: Respiratory Treatments: N/A Oxygen Therapy: is not on home oxygen therapy. Ventilator: - No ventilator support Rehab Therapies: Physical Therapy and Occupational Therapy Weight Bearing Status/Restrictions: No weight bearing restirctions Other Medical Equipment (for information only, NOT a DME order): walker Other Treatments: Aquacell dressing to left knee. Patient's personal belongings (please select all that are sent with patient): Barbi RN SIGNATURE: CASE MANAGEMENT/SOCIAL WORK SECTION Inpatient Status Date: Observation Readmission Risk Assessment Score: Readmission Risk Risk of Unplanned Readmission: 0 Discharging to Facility/ Agency Name: Address: Phone: Fax: Dialysis Facility (if applicable) Name: Address: Dialysis Schedule: Phone: Fax: Commanding Officer Traffic Division/Order Processing Clerk signature: {Esignature:[id number]} PHYSICIAN SECTION Prognosis: Good Condition at Discharge: Stable Rehab Potential (if transferring to Rehab): Good Recommended Labs or Other Treatments After Discharge: PT/OT treat and evaluate. Home PT for two weeks and then outpatient PT will be ordered at 2 week follow up with surgeon. Physician Certification: I certify the above information and transfer of Caty Hills is necessary for the continuing treatment of the diagnosis listed and that she requires Home Care for less 30 days. Update Admission H&P: No change in H&P PHYSICIAN SIGNATURE: * Additional Instructions* Rupert Cerna, PERMANENT WAVER - ARTICULATION OFFICER - 11/16/2019 Total Knee Replacement Discharge Instructions ? To prevent Clot formation, you have been placed on the following medication: ASA for 30 days started on 11/16/19 ? Surgical Site Care: o .Change dressing once a day and PRN (as needed). Apply 4 x 4 sponge and light tape. If glue present, leave open to air. o You may leave wound open to air after initial dressing removal, if wound is clean, dry and intact o If Aquacel Ag dressing is present, do not remove dressing for 7 days, unless heavily saturated. If heavily saturated, remove dressing and start using instructions above o [place] will be removed on post-operative day 14 and steri-strips applied o Showering is permitted starting POD1 if waterproof Aquacel dressing is present or when the incision is covered with 4 x 4 and Tegaderm waterproof dressing Until all areas of incision are healed. o ? Physical Therapy: o Weight Bearing Status: ? WBAT ? Precautions, Per Physical Therapy Handout ? Pain Medications o You were given Ultram for pain o Wean off pain medications as you deem appropriate as long as pain is under control ? Cold packs/Ice packs/Machine o May be used 3 times daily for 15-30 minutes as necessary o Be sure to have a barrier (cloth, clothing, towel) between the site and the ice pack to prevent frostbite ? [facility] office if o Increased redness, swelling, drainage of any kind, and/or pain to surgery site. As well as new onset fevers and or chills. These could signify an infection. o Calf or thigh tenderness to touch as well as increased swelling or redness. This could signify a clot formation. o Numbness or tingling to an area around the incision site or below the incision site (toes). o Any rash appears, increased or new onset nausea/vomiting occur. This may indicate a reaction to amedication. ? . ? Follow up with Surgeon in two weeks. Your appointment was scheduled at your appointment with Dr. Lamb. ? I acknowledge that I have received reilly hose and understand the instructions on how and when to wear them (on during the day, off at night) ? Discharging RN who has gone over instructions and acknowledges reilly hose have been received documented in this encounter Chief Complaint * f/u LT TKR 11/15/19, 11 mths out, x-rays today * Pt is having a lot of pain and soreness in LT knee and LT hip * unsure where pain is coming from NENA* Rt knee pain * hx or Lt TKR 11/15/19 * xrays today * Rt knee pain * hx or Lt TKR 11/15/19 * xrays today Patient is here for a medication follow up, review blood work and discuss leg, foot, knee and hand ytir* Follow up LT TKR 11/15/19 * Rt knee pain s/p inj 09/04/21 follow upPost-op RT TKR 12/24/21, 2 weeks out, x-rays todayPost-op RT TKR 12/24/21, 2 weeks out, x-rays todayPost-op RT TKR 12/24/21, 2 weeks out, x-rays todayfollow up* f/u RT TKR 12/24/21, almost 6 months out, x-rays @ [facility] 05/19/22 * seen in castroom on 05/19/22 due to increased right knee pain * f/u RT TKR 12/24/21, almost 6 months out, x-rays @ [facility] 05/19/22 * seen in castroom on 05/19/22 due to increased right knee pain * f/u RT TKR 12/24/21, x-rays @ [facility] 05/19/22 * seen in castroom on 05/19/22 due to increased right knee pain PETZNICK ANGINA PALP,TACHY. Chief Complaint and Reason for Visit Chief Complaint R05.9 - PCR (C19, Fl uAB, RSV) Chief Complaint fall back pain today Chief Complaint K Lt hamstring Chief Complaint K Lt hamstring Upper Right Ab Pain/Bloating/Diegestion R14.0;R10.11;R19.7 r14.0 r10.11 Chief Complaint K Lt hamstring R14.0;R10.11;R19.7 Chief Complaint Admit Date Fm Hx of Colon cancer April 25, 2024 11:03am Fm Hx of Colon cancer April 25, 2024 1:23pm Chief Complaint Admit Date Fm Hx of Colon cancer April 25, 2024 11:03am Fm Hx of Colon cancer April 25, 2024 1:23pm Amb Documentation April 26, 2024 8 :15am Amb Documentation April 26, 2024 8 :16am follow up July 17, 2024 10: 17am Chief Complaint Admit Date follow up July 17, 2024 10: 17am dysphagia/gerd/dyspepsia August 03, 2024 7 :00am dysphagia/gerd/dyspepsia August 03, 2024 8 :24am Reason for Visit Admit Date Colon polyps July 17, 2024 10: 17am Dyspepsia July 17, 2024 10: 17am Dysphagia July 17, 2024 10: 17am GERD (gastroesophageal reflux disease) A pril 2024 10:17am Rheumatoid arthritis July 17, 2024 10 :17am Chief Complaint Admit Date dysphagia/gerd/dyspepsia August 03, 2024 7 :00am dysphagia/gerd/dyspepsia August 03, 2024 8 :24am follow up EGD/gerd/dysphagia/dyspepsia [facility] 2024 10:26am 8wk f/u GERD/mixed IBS October 19, 2024 1 0:43am Reason for Visit Admit Date Dyspepsia August 22, 2024 10:26 am Dysphagia August 22, 2024 10:26 am Esophagitis August 22, 2024 10:26 am Gastritis August 22, 2024 10:26 am GERD (gastroesophageal reflux disease) M ay 2024 10:26am Reason for Referral SpecialtyDiagnoses / ProceduresReferred By ContactReferred To ContactRadiology Diagnoses Right knee pain, unspecified chronicity Procedures XR knee right 3 views Rodney Lamb MD [address] [facility], [address] [place] [address] Referral IDStatusReasonStart DateExpiration DateVisits RequestedVisits [id number] Perform Procedure /[id number] / ProceduresReferred By ContactReferred To Contact Diagnoses Arthritis of carpometacarpal (CMC) joint of thumb Procedures CONSULT TO OCCUPATIONAL THERAPY/HAND THERAPY (AG) Oleg Malloy MD [address] [place] [address] Referral IDStatusReasonStwater valley DateExpiration DateVisits RequestedVisits [id number] Not Required PCP Requested Referral /[id number] / ProceduresReferred By ContactReferred To ContactCardiology Diagnoses Palpitations Shortness of breath Syncope and collapse Procedures Transthoracic Echo (TTE) Complete PA ECHO TRANSTHORC R-T 2D W/WO M-MODE REC F-UP/LMTD PA DOP ECHOCARD COLOR FLOW VELOCITY MAPPING PA DOP ECHOCARD PULSE WAVE W/SPECTRAL F-UP/LMTD STD Rena Becerra MD [address] [facility] [address] [place] [address] Referral IDStatusReasonStart DateExpiration DateVisits RequestedVisits [id number] Perform Procedure / Additional Source Comments INFORMATION SOURCE (unrecogn ized section and content) DATE CREATED AUTHOR 05/07/2018 [facility] DATE CREATED AUTHOR AUTHOR'S ORGANIZ ATION 10/25/2019 [facility] DATE CREATED AUTHOR AUTHOR'S ORGANIZ ATION 04/07/2020 [facility] DATE CREATED AUTHOR AUTHOR'S ORGANIZ ATION 10/23/2021 [facility] [facility] DATE CREATED AUTHOR AUTHOR'S ORGANIZ ATION 01/01/2022 [facility] DATE CREATED AUTHOR AUTHOR'S ORGANIZ ATION 10/03/2022 [facility] DATE CREATED AUTHOR AUTHOR'S ORGANIZ ATION 12/08/2022 [facility] DATE CREATED AUTHOR AUTHOR'S ORGANIZ ATION 12/25/2022 [facility] DATE CREATED AUTHOR AUTHOR'S ORGANIZ ATION 01/16/2023 [facility] DATE CREATED AUTHOR AUTHOR'S ORGANIZ ATION 03/08/2023 [facility] DATE CREATED AUTHOR AUTHOR'S ORGANIZ ATION 09/29/2023 [facility] DATE CREATED AUTHOR AUTHOR'S ORGANIZ ATION 08/13/2024 [facility] DATE CREATED AUTHOR AUTHOR'S ORGANIZ ATION 01/14/2025 [facility] DATE CREATED AUTHOR AUTHOR'S ORGANIZ ATION 01/17/2025 [facility] DATE CREATED AUTHOR AUTHOR'S ORGANIZ ATION 01/18/2025 [facility] DATE CREATED AUTHOR AUTHOR'S ORGANIZ ATION 02/06/2025 [facility] EPIC DATE CREATED AUTHOR AUTHOR'S ORGANIZ ATION 02/14/2025 [facility] Reason for Visit (unrecogniz ed section and content) StatusReasonSpecialtyDiagnoses / ProceduresReferred By ContactReferred To Contact Diagnoses Osteoarthritis of left knee LEFT KNEE: OSTEOARTHRITIS Procedures PA TOTAL KNEE ARTHROPLASTY LEFT KNEE TOTAL KNEE REPLACEMENT HONEY SPINAL, NERVE BLOCK Rodney Lamb MD [address] [place] [address] [facility] SpecialtyDiagnoses / ProceduresReferred By ContactReferred To Contact Diagnoses Primary osteoarthritis of right knee RIGHT KNEE DEGENERATIVE JOINT DISEASE Procedures PA TOTAL KNEE ARTHROPLASTY RIGHT KNEE TOTAL KNEE REPLACEMENT. Rodney Boyle MD [address] [place] [address] [facility] [address] [place] [address] Referral IDStatusReasonStart DateExpiration DateVisits RequestedVisits [id number] ArthritisReasonOnset DateComments Refill Vasyupn5304/19/2022ReasonOnset DateCommentsRefill Ltubvjn6310/14/2022Reason Onset DateCommentsRefill Jwxvxlw9711/03/2022Refill Qgvgjep5611/04/2022ReasonComments Insurance AuthorizationSpecialtyDiagnoses / ProceduresReferred By Contact Referred To ContactCardiology Diagnoses Palpitations Shortness of breath Syncope and collapse Procedures Transthoracic Echo (TTE) Complete PA ECHO TRANSTHORC R-T 2D W/WO M-MODE REC F-UP/LMTD PA DOP ECHOCARD COLOR FLOW VELOCITY MAPPING PA DOP ECHOCARD PULSE WAVE W/SPECTRAL F-UP/LMTD STD Rena Becerra MD [address] [facility] [address] [place] [address] Referral IDStatusReasonStart DateExpiration DateVisits RequestedVisits [id number] Perform Procedure /[id number]jijenyMzgpzbtnx / ProceduresReferred By ContactReferred To ContactOrthopedics Diagnoses Rheumatoid arthritis involving multiple sites with positive rheumatoid factor (HCC) Procedures CONSULT PANEL TO ORTHOPAEDICS OFFICE/OUTPATIENT [facility] 60-74 MINUTES Chris No MD [address] [place] [address] Referral IDStatusReasonStart DateExpiration DateVisits RequestedVisits [id number] PCP Requested Referral /[id number]aqu & ECHOSpecialtyDiagnoses / ProceduresReferred By ContactReferred To ContactCardiology Diagnoses Palpitations Shortness of breath Syncope and collapse Procedures Follow Up In Cardiology Rena Becerra MD [address] [facility] [address] [place] [address] Rena Becerra MD [address] [facility] [address] [place] [address] Referral IDStatusReasonStart DateExpiration DateVisits RequestedVisits [id number]/23/202310/472247CmwdruKpwedxniHuoHuqgHcutgxra ReasonCommentsOT EVALOT DischargeSpecialtyDiagnoses / ProceduresReferred By ContactReferred To ContactOccupational Therapy / OCCUPATIONAL THERAPY Diagnoses B/L CMC OA Procedures NEW RS OT HAND Oleg Malloy MD [address] [place] [address] Daniel Miles, OT/L Referral IDStatusReasonStart DateExpiration DateVisits RequestedVisits [id number]/29/202312/[id number] DateCommentsMed Ekvdyz244ReasonCommentsFollow-upS/P TKR 12/24/21; Xrays TodayPainS/P TKR 12/24/21; Xrays TodayReasonCommentsInsurance AuthorizationOrenciaReasonOnset Date CommentsSPP Inflammatory Conditions - Medication Mlwgxo4810/24/2023XeljanzReason Onset DateCommentsSPP Inflammatory Conditions - Treatment Jpngwouy64/22/2024 XeljanzInsurance Awwppolusqhzu25/22/2024A submission pendingReasonOnset Date CommentsRefill Vukkezv55/08/2024ReasonCommentsRefill RequestReasonComments Rheumatoid ArthritisFollow upReasonCommentsUTIReasonCommentsRadiology XRReason CommentsURIReasonCommentsEaracheReasonCommentsFollow Up2 monthKnees, feet and shoulders are hurting.Pt took 2 prednisone's this AMRheumatoid ArthritisReason CommentsEar ProblemSpecialtyDiagnoses / ProceduresReferred By ContactReferred To ContactOtolaryngology Diagnoses Non-recurrent acute suppurative otitis media of both ears without spontaneous rupture of tympanic membranes Procedures PA OFFICE/OUTPATIENT [facility] Siobhanshane Anibal Henri, DO [address] [facility] [address] [place] [address] Phone: tel: fax: Jason Kimble MD [address] [facility] [address] [place] [address] Phone: tel: fax: Referral IDStatusReasonStart DateExpiration DateVisits RequestedVisits [id number] Specialty Services Required /[id number] DateCommentsSPP Inflammatory Conditions - Treatment Xboqjfvz45/06/2024RinvoqInsurance Tovorrlzpldvv05/06/2024PA pending submissionReasonCommentsFollow-rw1rBwlcshgvaDmiflntij / ProceduresReferred By ContactReferred To ContactCardiology Diagnoses Palpitations Procedures Follow Up In Cardiology Rena Becerra MD [address] [place] [address] Rena Becerra MD [address] [place] [address] Referral IDStatusReasonStart DateExpiration DateVisits RequestedVisits [id number]/16/202311/453627JxckuwWexfe DateCommentsRefill Ydaqygv5903/16/2024easonCommentsOrdersRinvoq clarificationReasonCommentsBack Pain EaracheReasonCommentsMedication ProblemRinvoqReasonOnset DateCommentsRefill Xtjyite9005/29/2024ReasonCommentsRheumatoid ArthritisCaty Hills is a 64 year old Female who presents for a 3 Month Follow Up for Rheumatoid Arthritis. She states that she had flu and it caused her to have a flare up, she has been doing ok and the Renvoke appears to be working well with no side effects.Reason CommentsInsurance AuthorizationRinvoqReasonCommentsneck swellingReasonComments ResultsReasonCommentsRheumatoid ArthritisReasonCommentsNew PatientReasonComments AppointmentquestionnaireReasonCommentsRadio Gen RMPSpecialtyDiagnoses / ProceduresReferred By ContactReferred To ContactXR IMAGING Diagnoses Facet arthropathy, cervical Recurrent occipital headache Procedures XR CERV INJURY 3V AP/LAT/ODON RADEX SPINE CERVICAL 2 OR 3 VIEWS Josh Mcgowan MD [address] [place] [address] Phone: tel: fax: [place] [address] Referral IDStatusReasonStart DateExpiration DateVisits RequestedVisits [id number] Auto-Generated Referral /[id number] - 11/15/2019Xrays todayReasonComments Schedule InjectionReasonCommentsConsultNeck and low backSpecialtyDiagnoses / ProceduresReferred By ContactReferred To [facility] Diagnoses Degenerative disc disease, cervical Neural foraminal stenosis of cervical spine Procedures OFFICE/OUTPATIENT [facility] [address] [place] [address] [facility] [place] [address] Phone: tel: fax: Referral IDStatusReasonStart DateExpiration DateVisits RequestedVisits [id number] PCP Requested Referral /[id number]-zcES TKR 11/15/19/P: physical therapy, knee brace Care Teams (unrecognized sec tion and content) Team Status: Active Member Role Status Dates Anibal Juan DO Primary Care Provider Active Team Status: Inactive Member Role Status Dates Anibal Juan DO Primary Care Provider Active Everardo Phillips MDEmergency ProviderActiveTeam MemberRelationshipSpecialtyStart DateEnd Date Anibal Juan DO PCP - GeneralFamily Bfxqluko48/21/18Team MemberRelationshipSpecialtyStart Date End Date Anibal Juan DO PCP - Generalmily Gaopnuyu79/21/18 Team Status: Inactive Member Role Status Dates Anibal Juan DO Primary Care Provider, Attending Provider Active Team MemberRelationshipSpecialtyStart DateEnd Date Anibal Juan [address] [place] [address] [place] [address] PCP - GeneralFamily Medicine12/30/18 Angi Go MD [address] [address] [place] Referring RaqlUgprycqbb22/6/21 Jeremias Guadarrama MD [address] [place] [address] Primary Staff PhysicianInternal Medicine04/10/21Team MemberRelationshipSpecialty Start DateEnd Date Anibal Juan Grupo [address] [place] [address] [place] [id number] [facility] - [facility]12/30/18 Angi Go MD [address] [address] [place] Referring NfwsLcsqcgyjf97/6/21 Jeremias Guadarrama MD [address] [place] [address] Primary Staff PhysicianInternal Medicine04/10/21Team MemberRelationshipSpecialty Start DateEnd Date Helder Juankay Lombardo [address] [place] [address] [place] [address] PCP - [facility]En[facility] Medicine12/30/18 Angi Go MD [address] [address] [place] Referring LrhnIagxtmhit21/6/21 Jeremias Guadarrama MD [address] [place] [address] Primary Staff PhysicianInternal Medicine04/10/21Te MemberRelationshipSpecialty Start DateEnd Date Anibal Juan [address] [place] [address] [place] [address] PCP - GeneralFamily Medicine12/30/18 Angi Go MD [address] [place] [address] [place] Referring KnhuBxgiqelkx31/6/21 Jeremias Guadarrama MD [address] [place] [address] Primary Staff PhysicianInternal Medicine04/10/21Te MemberRelationshipSpecialty Start DateEnd Date Anibal Juan [address] [place] [address] [place] [address] PCP - GeneralFamily Medicine12/30/18 Angi Go MD [address] [place] [address] [place] Referring CxqhQzwstczxb06/6/21 Jeremias Guadarrama MD [address] [place] [address] Primary Staff PhysicianInternal Medicine04/10/21Te MemberRelationshipSpecialty Start DateEnd Date Anibal Juan [address] [place] [address] [place] [address] PCP - GeneralFamily Medicine12/30/18 Angi Go MD [address] [place] [address] NI Referring NbtbYrkcjfxys80/6/21 Jeremias Guadarrama MD [address] [place] [address] Primary Staff PhysicianInternal Medicine04/10/21Team MemberRelationshipSpecialty Start DateEnd Date Anibal Juan [address] [address] PCP - GeneralFamily Medicine12/30/18 Angi Go MD [address] [place], [place] [address] [place] Referring DvogDospapsia21/6/21 Jeremias Guadarrama MD [address] [place] [address] Primary Staff PhysicianAurora East Hospitalnal Medicine04/10/21Team MemberRelationshipSpecialty Start DateEnd Date Anibal Juan DO [address] [facility] [address] [place] [phone] PCP - General04/04/15Team MemberRelationshipSpecialtyStart DateEnd Date Anibal Juan [address] [facility] [address] [place] [address] PCP - GeneralFamily Medicine12/30/18 Angi Go MD [address] [place], [place] [address] NI Referring ZiqiXpoxhcyrb20/6/21 Jeremias Guadarrama MD [address] [place] [address] Primary Staff PhysicianInternal Medicine04/10/21Team MemberRelationshipSpecialty Start DateEnd Date Anibal Juan DO [address] [facility] [address] [place] [phone] PCP - Generalmi Medicine12/30/18 Angi Go MD [address] [place], [place] [address] NI Referring UhcwYevquhptz73/6/21 Jeremias Guadarrama MD [address] [place] [address] Primary Staff PhysicianInternal Medicine04/10/21Te MemberRelationshipSpecialty Start DateEnd Date Anibal Juan DO [address] [facility] [address] [place] [address] PCP - GeneralFamily Medicine12/30/18 Angi Go MD [address] [place] [address] NI Referring ZgqfQptuzcdqv80/6/21 Jeermias Guadarrama MD [address] [place], [place] [id number] Primary Staff PhysicianInternal Medicine04/10/21Te MemberRelationshipSpecialty Start DateEnd Date Anibal Juan DO [address] [facility] [address] [address] PCP - General04/04/15Team MemberRelationshipSpecialtyStart DateEnd Date Anibal Juan DO [address] [facility] [address] [place] [address] PCP - General04/04/15Te MemberRelationshipSpecialtyStart DateEnd Date Anibal Juan DO [address] [address] PCP - GeneralFami Medicine12/30/18 Angi Go MD [address] [place], [place] [address] NI Referring NaftCmqcdkdac09/6/21 Jeremias Guadarrama MD [address] [place], [place] [id number] Primary Staff PhysicianInternal Medicine04/10/21Team MemberRelationshipSpecialty Start DateEnd Date Anibal Juan DO [address] [address] PCP - GeneralFamily Medicine12/30/18 Angi Go MD [address] [place] [address] NI Referring IbdiImhfjular18/6/21 Jeremias Guadarrama MD [address] [place] [address] Primary Staff PhysicianInternal Medicine04/10/21 Team Status: Inactive Member Role Status Dates Anibal Juan DO Primary Care Provider Active Amar Mutvicki , MDAttending ProviderActiveTeam MemberRelationshipSpecialtyStart DateEnd Date Anibal Juan DO [address] [place] [address] [place] [address] PCP [facility]07/03/20 Anibal Juan DO [address] [place] [address] [place] [address] PCP [facility]08/10/22Team MemberRelationshipSpecialtyStart DateEnd Date Anibal Juan DO [address] [place] [address] [place] [address] PCP - General04/04/15 Team Status: Inactive Member Role Status Dates Anibal Juan DO Primary Care Provider Active Start: March 04, 2023 End: March 04juan david Mutvicki , MDAttending ProviderActiveStart: March 04, 2023 End: March 04, 2023 Team Status: Inactive Member Role Status Dates Rex Mckee APRN Attending Provider Active Start: April 21, 2023 End: April 21, 2023 Team Status: Inactive Member Role Status Dates Anibal Juan DO Primary Care Provider Active Start: May 02, 2023 End: May 02Lety Fernandez ProviderActiveStart: May 02, 2023 End: May 02, 2023 Team Status: Inactive Member Role Status Dates Anibal Juan DO Primary Care Provider Active Start: May 16, 2023 End: May 16Lety Fernandez ProviderActiveStart: May 16, 2023 End: May 16, 2023Team MemberRelationshipSpecialtyStart DateEnd Date Anibal Juan DO [address] [place] [address] [place] [address] PCP - Generalmily Medicine12/30/18 Angi Go MD [address] [place] [address] NI Referring RhnjOlsmqnbcl81/6/21 Jeremias Guadarrama MD [address] [place] [address] Primary Staff PhysicianInternal Medicine04/10/21Te MemberRelationshipSpecialty Start DateEnd Date Anibal Juan DO [address] [facility] [address] [place] [phone] PCP - [facility]12/30/18 Angi Go MD [address] [place] [address] NI Referring IxhyWmcnsngbn43/6/21 Jeremias Guadarrama MD [address] [place], [place] [phone] Primary Staff PhysicianHighland Ridge Hospital04/10/21Te MemberRelationshipSpecialty Start DateEnd Date Anibal Juan DO [address] [facility] [address] [place] [phone] PCP - [facility]En[facility] Medicine12/30/18 Angi Go MD [address] [place], [place] [address] NI Referring AloxQjazpcmpn60/6/21 Jeremias Guadarrama MD [address] [place], [place] [id number] Primary Staff PhysicianInternal Medicine04/10/21Team MemberRelationshipSpecialty Start DateEnd Date Anibal Juan DO [address] [place] [address] [place] [address] PCP - GeneralFamily Medicine12/30/18 Angi Go MD [address] [place] [address] NI Referring PqctUucozvjku66/6/21 Jeremias Guadarrama MD [address] [place] [address] Primary Staff PhysicianInternal Medicine04/10/21Team MemberRelationshipSpecialty Start DateEnd Date Anibal Juan DO [address] [place] [address] PCP - GeneralFamily Medicine12/30/18 Angi Go MD [address] [place] [address] NI Referring GzsiFoxvoejwr51/6/21 Jeremias Guadarrama MD [address] [place] [address] Primary Staff PhysicianInternal Medicine04/10/21Team MemberRelationshipSpecialty Start DateEnd Date Anibal Juan DO [address] [place] [address] PCP - GeneralFamily Medicine12/30/18 Angi oG MD [address] [place] [address] NI Referring QxjjUoqcuadbe41/6/21 Jeremias Guadarrama MD [address] [place] [address] Primary Staff PhysicianAurora East Hospitalnal Medicine04/10/21Team MemberRelationshipSpecialty Start DateEnd Date Anibal Juan, DO [address] [place] [address] [place] [address] PCP - [facility] [employer]07/03/20 Anibal Juan, DO [address] [place] [address] [place] [address] PCP - GeneralFamily Medicine08/10/22Team MemberRelationshipSpecialtyStart DateEnd Date Anibal Juan, DO [address] [place] [address] [place] [address] PCP - GeneralFamily Medicine12/30/18Team MemberRelationshipSpecialtyStart DateEnd Date Anibal Juan, DO [address] [place] [address] [place] [address] PCP - [facility]07/03/20 Anibal Juan, DO [address] [place] [address] [place] [address] PCP - GeneralFamily Medicine08/10/22Team MemberRelationshipSpecialtyStart DateEnd Date Anibal Juan, DO [address] [place] [address] [place] [address] PCP - [facility]07/03/20 Anibal Juan, DO [address] [place] [address] [place] [address] PCP - GeneralFamily Medicine08/10/22Team MemberRelationshipSpecialtyStart DateEnd Date Anibal Juan, DO [address] [place] [address] [place] [address] PCP - [facility]07/03/20 Anibal Juan, DO [address] [place] [address] [place] [address] PCP - Generalmily Medicine08/10/22Team MemberRelationshipSpecialtyStart DateEnd Date Anibal Juan, DO [address] [place] [address] [place] [address] PCP - [facility]07/03/20 Anibal Juan, DO [address] [place] [address] [place] [address] PCP - Generalmily Medicine08/10/22Team MemberRelationshipSpecialtyStart DateEnd Date Anibal Juan, DO [address] [place] [address] [place] [address] PCP - GeneralFamily Medicine12/30/18 Angi Go MD [address] [place] [address] NI Referring OwbdJwryzbtxh79/6/21 Jeremias Guadarrama MD [address] [place] [address] Primary Staff PhysicianInternal Medicine04/10/21Team MemberRelationshipSpecialty Start DateEnd Date Anibal Juan, DO [address] [place] [address] [place] [address] PCP - [facility]07/03/20 Anibal Juan, DO [address] [place] [address] PCP - GeneralFamily Medicine08/10/22Team MemberRelationshipSpecialtyStart DateEnd Date Anibal Juan DO [address] [place] [address] PCP - [employer]07/03/20 Anibal Juan, DO [address] [place] [address] PCP - GeneralFamily Medicine08/10/22Team MemberRelationshipSpecialtyStart DateEnd Date Anibal Juan, DO PCP - General04/04/15Team MemberRelationshipSpecialtyStart DateEnd Date Anibal Juan, DO [address] [place] [address] PCP - GeneralFamily Medicine12/30/18 Angi Go MD [address] [place] [address] NI Referring [id number]/6/21 Jeremias Guadarrama MD [address] [place] [address] Primary [facility]ician[facility] Medicine04/10/21Team MemberRelationshipSpecialty Start DateEnd Date Anibal Juan DO [address] [place] [address] PCP - [employer]07/03/20 Anibal Juan, [address] [place] [address] [facility] - [facility]08/10/22Team MemberRelationshipSpecialtyStart DateEnd Date Anibal Juan DO [address] [place] [address] PCP - [employer]07/03/20 Anibal Juan, DO [address] [place] [address] PCP - [facility] Medicine08/10/22 Team Status: Inactive Member Role Status Dates Anibal Juan DO Primary Care Provider Active Start: April 25, 2024 End: April 25, 2024Imad Galen , MDAttending ProviderActiveStart: April 25, 2024 End: April 25, 2024 Team Status: Active Member Role Status Dates Anibal Juan DO Primary Care Provider Active Start: April 25, 2024 Imad Galen , MDAttending Provider, Other ProviderActiveStart: April 25, 2024 Team MemberRelationshipSpecialtyStart DateEnd Date Anibal Juan DO [address] [place] [address] PCP - [employer]07/03/20 Anibal Juan DO [address] [place] [address] [facility] - [facility] Medicine08/10/22Team MemberRelationshipSpecialtyStart DateEnd Date Anibal Juan DO [address] [place] [address] [facility] Anibal Juan DO [address] [place] [address] P[facility] - [facility] Medicine08/10/22Te MemberRelationshipSpecialtyStart DateEnd Date Anibal Juan, DO [address] [place] [address] [facility] - [facility]12/30/18 Angi Go MD [address] [place], [place] [id number] NI Referring [id number]/6/21 Jeremias Guadarrama MD [address] [place], [place] [id number] Primary Staff PhysicianInternal Medicine04/10/21Te MemberRelationshipSpecialty Start DateEnd Date Anibal Juan, DO [address] [place] [address] [facility] - [facility] Medicine12/30/18 Angi Go MD [address] [place], [place] [id number] NI Referring DnldVuyrifcee64/6/21 Jeremias Guadarrama MD [address] [place] [address] Primary Staff PhysicianInternal Medicine04/10/21 Team Status: Active Member Role Status Dates Anibal Juan DO Primary Care Provider Active Start: April 26, 2024 Angi Cline , CMAAttending ProviderActiveStart: April 26, 2024 Team Status: Inactive Member Role Status Dates Anibal Juan DO Primary Care Provider Active Start: July 17, 2024 End: July 17, 2024Lety Reid ProviderActiveStart: July 17, 2024 End: July 17, 2024 Team Status: Inactive Member Role Status Dates Anibal Juan DO Primary Care Provider Active Start: August 03, 2024 End: August 03, 2024Imad Asaad , MDAttending ProviderActiveStart: August 03, 2024 End: August 03, 2024 Team Status: Active Member Role Status Dates Anibal Juan DO Primary Care Provider Active Start: August 03, 2024 Imad Asamike , MDAttending Provider, Other ProviderActiveStart: August 03, 2024 Team MemberRelationshipSpecialtyStart DateEnd Date Anibal Juan DO [address] [place] [address] P[facility] - [facility] Medicine08/10/22Team MemberRelationshipSpecialtyStart DateEnd Date Anibal Juan DO [address] [place] [address] [facility] - [facility] Medicine08/10/22Team MemberRelationshipSpecialtyStart DateEnd Date Anibal Juan DO [address] [place] [address] [facility] - [facility] Medicine08/10/22Team MemberRelationshipSpecialtyStart DateEnd Date Anibal Juan DO [address] [place] [address] PCP - GeneralFamily Medicine12/30/18 Angi Go MD [address] [place] [address] NI Referring [id number]/6/21 Jeremias Guadarrama MD [address] [place] [address] Primary Staff PhysicianInternal Medicine04/10/21Team MemberRelationshipSpecialty Start DateEnd Date Anibal Juan DO [address] [facility] [address] [place] [address] PCP - Generalmily Medicine12/30/18 Angi Go MD [address] [place] [address] NI Referring [id number]/6/21 Jeremias Guadarrama MD [address] [place] [address] Primary Staff [facility]icianA[facility] Medicine04/10/21Team MemberRelationshipSpecialty Start DateEnd Date Anibal Juan DO [address] [place] [address] P[facility] - [facility] Medicine12/30/18 Angi Go MD [address] [place], [place] [id number] NI Referring KddbBzhacujaw68/6/21 Jeremias Guadarrama MD [address] [place] [address] Primary Staff PhysicianInternal Medicine04/10/21Team MemberRelationshipSpecialty Start DateEnd Date Anibal Juan DO [address] [place] [address] PCP - [facility]12/30/18 Angi Go MD [address] [place] [address] NI Referring WrclZgimhjojy95/6/21 Jeremias Guadarrama MD [address] [place] [address] Primary [facility]icianGood [facility] Medicine04/10/21 Team Status: Active Member Role Status Dates Anibal Juan DO Primary Care Provider Active Start: August 03, 2024 Rashaad Aaron MDAttending ProviderActiveStart: August 03, 2024 Rashaad Aaron MDOther ProviderActiveStart: August 03, 2024 Team Status: Inactive Member Role Status Dates Anibal Juan DO Primary Care Provider Active Start: August 22, 2024 End: August 22, 2024Lety Reid ProviderActiveStart: August 22, 2024 End: August 22, 2024 Team Status: Inactive Member Role Status Dates Anibal Juan DO Primary Care Provider Active Start: October 19, 2024 End: October 19, 2024Lety Reid ProviderActiveStart: October 19, 2024 End: October 19, 2024Team MemberRelationshipSpecialtyStart DateEnd Date Anibal Juan DO [address] [place] [address] PCP - GeneralFamily Medicine12/30/18 Angi Go MD [address] [place] [address] NI Referring SwmbRxlqslvhj89/6/21 Jeremias Guadarrama MD [address] [place] [address] Primary Staff PhysicianInternal Medicine04/10/21Team MemberRelationshipSpecialty Start DateEnd Date Anibal Juan DO [address] [place] [address] PCP - GeneralFamily Medicine08/10/22Team MemberRelationshipSpecialtyStart DateEnd Date Anibal Juan DO [address] [place] [address] PCP - GeneralFamily Medicine12/30/18 Angi Go MD [address] [place] [address] NI Referring [id number]/6/21 Jeremias Guadarrama MD [address] [place] [address] Primary Staff PhysicianInternal Medicine04/10/21Team MemberRelationshipSpecialty Start DateEnd Date Anibal Juan DO PCP - General04/04/15Team MemberRelationshipSpecialtyStart DateEnd Date Anibal Juan DO [address] [place] [address] PCP - GeneralFamily Medicine12/30/18 Angi Go MD [address] [place] [address] NI Referring [id number]/6/21 Jeremias Guadarrama MD [address] [place] [address] Primary Staff PhysicianInternal Medicine04/10/21Team MemberRelationshipSpecialty Start DateEnd Date Anibal Juan DO PCP - General04/04/15Team MemberRelationshipSpecialtyStart DateEnd Date Anibal Juan DO [address] [place] [address] PCP - Generalmily Medicine12/30/18 Angi Go MD [address] [place] [address] NI Referring GqyySphjdedom81/6/21 Jeremias Guadarrama MD [address] [place] [address] Primary Staff PhysicianA[facility] Hospitalnal Medicine04/10/21Team MemberRelationshipSpecialty Start DateEnd Date Anibal Juan DO [address] [place] [address] PCP - GeneralFamily Medicine12/30/18 Angi Go MD [address] [place] [address] NI Referring [id number]/6/21 Jeremias Guadarrama MD [address] [place] [address] Primary Staff PhysicianInternal Medicine04/10/21Te MemberRelationshipSpecialty Start DateEnd Date Anibal Juan DO [address] [place] [address] [facility] - [facility]12/30/18 Angi Go MD [address] [place] [address] NI Referring ExanBjgkpwagk82/6/21 Jeremias Guadarrama MD [address] [place] [address] Primary Staff PhysicianAur[facility] Hospitalnal Medicine04/10/21[facility] MemberRelationshipSpecialty Start DateEnd Date BaileeAnibal shah DO [address] [place] [address] PCP - Generalmily Medicine12/30/18 Angi Go MD [address] [place] [address] NI Referring [id number]/6/21 Jeremias Guadarrama MD [address] [place], [place] [id number] Primary Staff PhysicianA[facility] Hospitalnal Medicine04/10/21Team MemberRelationshipSpecialty Start DateEnd Date Anibal Juan, DO [address] [place] [address] PCP - [facility] Medicine08/10/22 MemberRelationshipSpecialtyStart DateEnd Date Anibal Juan, DO [address] [place] [address] PCP - [facility] Medicine08/10/22am MemberRelationshipSpecialtyStart DateEnd Date Anibal Juan, DO [address] [place] [address] PCP - [facility] Medicine08/10/22 MemberRelationshipSpecialtyStart DateEnd Date Anibal Juan, DO [address] [place] [address] PCP - [facility] Medicine08/10/22 MemberRelationshipSpecialtyStart DateEnd Date Anibal Juan, DO [address] [place] [address] [facility] - [facility]08/10/22Team MemberRelationshipSpecialtyStart DateEnd Date Anibal Juan, DO [address] [place] [address] P[facility] - [facility] Medicine08/10/22Team MemberRelationshipSpecialtyStart DateEnd Date Anibal Juan, DO [address] [place] [address] PCP - GeneralFamily Medicine08/10/22Team MemberRelationshipSpecialtyStart DateEnd Date Anibal Juan, DO [address] [place] [address] PCP - Generalmily Medicine08/10/22am MemberRelationshipSpecialtyStart DateEnd Date Anibal Juan, DO [address] [place] [address] PCP - Generalmily Medicine08/10/22am MemberRelationshipSpecialtyStart DateEnd Date Anibal Juan, DO [address] [place] [address] PCP - Generalmily Medicine08/10/22am MemberRelationshipSpecialtyStart DateEnd Date Anibal Juan, DO [address] [place] [address] PCP - Generalmily Medicine08/10/22am MemberRelationshipSpecialtyStart DateEnd Date Anibal Juan, DO [address] [place] [address] PCP - Generalmily Medicine08/10/22Team MemberRelationshipSpecialtyStart DateEnd Date Anibal Juan, DO PCP - General04/04/15Team MemberRelationshipSpecialtyStart DateEnd Date Anibal Juan, DO [address] [place] [address] PCP - GeneralFamily Medicine08/10/22am MemberRelationshipSpecialtyStart DateEnd Date Anibal Juan, DO [address] [place] [address] PCP - Generalmily Medicine08/10/22am MemberRelationshipSpecialtyStart DateEnd Date Anibal Juan, DO [address] [place] [address] PCP - Generalmily Medicine08/10/22am MemberRelationshipSpecialtyStart DateEnd Date Anibal Juan, DO [address] [place] [address] [facility] MemberRelationshipSpecialtyStart DateEnd Date Anibal Juan, DO [address] [place] [address] PCP - Generalmily Medicine08/10/22 MemberRelationshipSpecialtyStart DateEnd Date Anibal Juan, DO [address] [place] [address] PCP - [facility] [employer]07/04/2111 Anibal Juan, DO [address] [place] [address] PCP - Generalmily Medicine08/10/22am MemberRelationshipSpecialtyStart DateEnd Date Anibal Juan, DO [address] [place] [address] PCP - [employer]07/04/2111 Anibal Juan DO [address] [place] [address] PCP - GeneralFanjly Medicine08/10/22 Ordered Prescriptions (unrec ognized section and content) PrescriptionSigDispensedRefillsStart DateEnd Date tiZANidine (ZANAFLEX) 4 MG tablet Take 1 tablet by mouth every 6 hours as needed (muscle spasm) 20 tablet / sennosides-docusate sodium (SENOKOT-S) 8.6-50 MG tablet Take 1 tablet by mouth 2 times daily for 10 days 20 tablet /05/2021 aspirin 81 MG EC tablet Take 1 tablet by mouth 2 times daily 60 tablet oxyCODONE (ROXICODONE) 5 MG immediate release tablet Indications:Acute post-operative painTake 1 tablet by mouth every 6 hours as needed for Pain for up to 7 days. 28 tablet / Scheduled Active and Recently Administ ered Medications (unrecognized section and content) Medication Order/ acetaminophen (TYLENOL) tablet 1,000 mg (COMPLETED) 1,000 mg, Oral, ONCE, 1 dose, On Nella 12/24/21 at 0745, Maximum dose of acetaminophen is 4000 mg fromall sources in 24 hours., Pre-op (day of surgery) * 0738 (Given - Provider: Nilton Sterling RN) acetaminophen (TYLENOL) tablet 650 mg 650 mg, Oral, EVERY 6 HOURS, First dose on Nella 12/24/21 at 1145, Until Discontinued, Maximum dose ofacetaminophen is 4000 mg from all sources in 24 hours., Post-op * 1219 (Given - Provider: Rashida Molina RN) * 1713 (Given - Provider: Rashida Molina RN) * 2235 (Given - Provider: Rufina Angelo RN) * 0420 (Given - Provider: Rufina Angelo RN) * 1012 (Given - Provider: Narcisa Brooke RN - Comment: previous dose 0420) * 1745 (Due) * 2345 (Due) aspirin EC tablet 81 mg 81 mg, Oral, 2 TIMES DAILY, First dose on Tue12/24/21 at 2100, Until Discontinued, Do not crush or break., Post-op * 2051 (Given - Provider: Rufina Angelo RN) * 0752 (Given - Provider: Narcisa Brooke RN) * 2100 (Due) ceFAZolin (ANCEF) 2000 mg in dextrose 5 % 100 mL IVPB (COMPLETED) 2,000 mg, IntraVENous, EVERY 8 HOURS, 2 doses, First dose on Tue12/24/21 at 1145, Last dose on Tue12/24/21 at 1945, Antimicrobial Indications: Surgical Prophylaxis, Post-op * 1720 (New Bag - Provider: Rashida Molina RN) * 1750 (Stopped - Provider: Rashida Molina RN) * 0055 (New Bag - Provider: Rufina Angelo RN) * 0125 (Stopped - Provider: Rufina Angelo RN) ceFAZolin (ANCEF) 2000 mg in dextrose 5 % 100 mL IVPB (COMPLETED) 2,000 mg, IntraVENous, 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., 1 dose, On Tue12/24/21 at 0745, Antimicrobial Indications: Surgical Prophylaxis, Pre-op (day of surgery) * 0857 (Given - Provider: Nataly Cai MD) * 1710 (Stopped - Provider: Narcisa Brooke RN) ceFAZolin (ANCEF) 2000 mg in dextrose 5 % 100 mL IVPB 2,000 mg, IntraVENous, EVERY 8 HOURS, 1 dose, First dose (after last reorder) on Tue12/25/21 at 0130, Antimicrobial Indications: Surgical Prophylaxis, Post-op * 0436 (Canceled Entry - Provider: Rufina Angelo RN) celecoxib (CELEBREX) capsule 200 mg (COMPLETED) 200 mg, Oral, ONCE, 1 dose, On Tue12/24/21 at 0745, Pre-op, Pre-op (day of surgery) * 0738 (Given - Provider: Nilton Sterling RN) escitalopram (LEXAPRO) tablet 20 mg 20 mg, Oral, NIGHTLY, First dose on Tue12/24/21 at 2100, Until Discontinued * 2050 (Given - Provider: Rufina nAgelo RN) * 2100 (Due) folic acid (FOLVITE) tablet 1 mg 1 mg, Oral, DAILY, First dose on Tue12/24/21 at 1515, Until Discontinued * 1753 (Given - Provider: Rashida Molina RN) * 0752 (Given - Provider: Narcisa Brooke RN) hydroCHLOROthiazide (HYDRODIURIL) tablet 25 mg(Linked Group 1) 25 mg, Oral, DAILY, First dose on Tue12/24/21 at 1515, Until Discontinued * 1714 (Given - Provider: Rashida Molina RN) * 0752 (Given - Provider: Narcisa Brooke RN) hydroxychloroquine (PLAQUENIL) tablet 200 mg 200 mg, Oral, DAILY, First dose on Tue12/24/21 at 1245, Until Discontinued, Do not crush or divide film-coated tablets * 175 (Given - Provider: Rashida Molina RN) * 0903 (Given - Provider: Narcisa Brooke RN) ketorolac (TORADOL) injection 30 mg (COMPLETED) Ketorolac is contraindicated in patients with advanced renal impairment and in patients at risk of renal failure due to volume depletion. For 65 years of age and older OR weight less than 50 kg, use 15 mg IV every 6 hours; MAX dose: 60 mg/day. Dose greater than 30 mg must be administered via intramuscular route. Do not administer for more than 5 days., 30 mg, IntraVENous, EVERY 6 HOURS, 2 doses, First dose on Tue12/24/21 at 1145, Last dose on Tue12/24/21 at 1745, Do not administer for more than5 days., Post-op * 1220 (Given - Provider: Rashida oMlina RN) * 1714 (Given - Provider: Rashida Molina RN) oxyCODONE (OXYCONTIN) extended release tablet 10 mg (COMPLETED) 10 mg, Oral, ONCE, 1 dose, On Tue12/24/21 at 0745, Do not crush or break., Pre- op (day of surgery) * 0738 (Given - Provider: Nilton Sterling RN) pantoprazole (PROTONIX) tablet 40 mg 40 mg, Oral, DAILY, First dose on Tue12/24/21 at 1515, Until Discontinued, Do not crush or break. * 1714 (Given - Provider: Rashida Molina RN) * 075 (Given - Provider: Narcisa Brooke RN) Plecanatide TABS 3 mg (Patient Supplied) 3 mg, Oral, NIGHTLY, First dose on Tue12/24/21 at 2100 * 2052 (Not Given - Provider: Rufina Angelo RN - Reason: Medication not available) * 2100 (Due) scopolamine (TRANSDERM-SCOP) transdermal patch 1 patch 1 patch, TransDERmal, Administer over 72 Hours, ONCE, On Tue12/24/21 at 0745, For 1 dose, 1.5 mg patch delivers 1 mg over 3 days. Apply patch to hairless area behind the ear., Pre-op (day of surgery) * 0745 (Patch Applied - Provider: Nilton Sterling RN - Comment: left ear) sennosides-docusate sodium (SENOKOT-S) 8.6-50 MG tablet 1 tablet 1 tablet, Oral, 2 TIMES DAILY, First dose on Tue12/24/21 at 1145, Until Discontinued, Post-op * 1219 (Given - Provider: Rashida Molina RN) * 2050 (Given - Provider: Rufina Angelo RN) * 075 (Given - Provider: Narcisa Brooke RN) * 2100 (Due) sodium chloride flush 0.9 % injection 5-40 mL 5-40 mL, IntraVENous, EVERY 12 HOURS SCHEDULED (2 times per day), First dose on Tue12/24/21 at 1145, Until Discontinued, For Line Patency: Peripheral IV = 5 mL; Midline or Central Line = 10 mL/lumen.If following IV push medication, administer flush at same rate as the IV push. Flush volume is determined by type of infusion therapy being given. For non-viscous solutions use: Peripheral IV = 5 mL Midline or Central Line = 10 mL/lumen For viscous solutions (i.e. blood components, parenteral nutrition, contrast media, or after obtaining blood sample) use: Peripheral IV = 10 mL Midline or CentralLine = 20 mL/lumen, Post-op * 1727 (Given - Provider: Rashida Molina RN) * 2307 (Not Given - Provider: Rufina Angelo RN - Reason: IV Fluid Infusing) * 0905 (Given - Provider: Narcisa Brooke RN) * 2100 (Due) tranexamic acid (LYSTEDA) tablet 1,950 mg (CANCELED) 1,950 mg, Oral, 90 MIN PRE-OP, Starting on Nella 12/24/21 at 0717, Until Nella 12/24/21 at 1008, To be given 90 minutes prior to surgery, Pre-op (day of surgery) * 0738 (Given - Provider: Nilton Sterling RN) tranexamic acid (LYSTEDA) tablet 1,950 mg (COMPLETED) 1,950 mg, Oral, ONCE, 1 dose, On Nella 12/24/21 at 1145, Do not crush or break. Administer POD1 at 0600. * 0609 (Given - Provider: Rufina Angelo RN) tranexamic acid (LYSTEDA) tablet 1,950 mg (COMPLETED) 1,950 mg, Oral, ONCE, 1 dose, On Nella 12/24/21 at 1145, Do not crush or break. Administer 8 hours from pre-op dose., Post-op * 1528 (Given - Provider: Rashida Molina RN) valsartan (DIOVAN) tablet 160 mg(Linked Group 1) 160 mg, Oral, DAILY, First dose on Nella 12/24/21 at 1515, Until Discontinued * 1714 (Given - Provider: Rashida Molina RN) * 0753 (Given - Provider: Narcisa Brooke RN) Medication Order12/23//// lactated ringers infusion IntraVENous, at 50 mL/hr, CONTINUOUS, Starting on Nella 12/24/21 at 1145, For 24 hours, Post-op * 1219 (New Bag - Provider: Rashida Molina RN) * 1720 (New Bag - Provider: Rashida Molina RN) * 0700 (Stopped - Provider: Narcisa Brooke RN) * 1711 (Stopped - Provider: Narcisa Brooke RN) lactated ringers infusion (CANCELED) IntraVENous, at 125 mL/hr, CONTINUOUS, Starting on Nella 12/24/21 at 0745, Please insert peripheral IV., Pre-op (day of surgery) * 0759 (New Bag - Provider: Nilton Sterling, RN) * 1711 (Stopped - Provider: Narcisa Brooke RN) Medication Order12/23//// 0.9 % sodium chloride infusion IntraVENous, at 5-250 mL/hr, PRN, if patient receiving piggyback infusions and maintenance fluids are not ordered OR KVO fluids to protect IV site / prevent frequent line interruptions/ long duration, Starting on Nella 12/24/21 at 1125, For piggyback infusion, administer at same rate as piggyback for a total of 25 mL. Enter 25 mL into dose field and piggyback rate into rate field of order. If piggyback is infusing at a rate less than 100 mL/hr, enter 25 mL into dose field and 100 mL/hr into rate field of order. For KVO fluids, enter rate of 20 mL/hr or less into rate field of order., Post-op fentaNYL (SUBLIMAZE) injection 50 mcg (CANCELED) 50 mcg, IntraVENous, EVERY 10 MIN PRN, 4 doses, Starting on Nella 12/24/21 at 1023, Until Nelal 12/24/21 at 1153, Pain Moderate (4-6), Phase I - Initial therapy for moderate pain., PACU only * 1052 (Given - Provider: Chris Marsh RN) lidocaine PF 1 % injection 1 mL (COMPLETED) 1 mL, IntraDERmal, ONCE PRN, 1 dose, Starting on Nella 12/24/21 at 0717, Until Nella 12/24/21 at 2359, IVstart, Pre-op (day of surgery) * 0759 (Given - Provider: Nilton Sterling, ROMÁN - Comment: right hand) morphine (PF) injection 2 mg 2 mg, IntraVENous, EVERY 3 HOURS PRN, Starting on Nella 12/24/21 at 1125, Until Discontinued, Pain Severe (7-10), If oral and IV narcotics ordered, use oral first and only use IV if oral is ineffective or cannot take oral. Do Not give oral and IV within 1 hour of each other unless specifically ordered., Post-op ondansetron (ZOFRAN) injection 4 mg(Linked Group 2) 4 mg, IntraVENous, EVERY 6 HOURS PRN, Starting on Nella 12/24/21 at 1125, Until Discontinued, Nausea, Vomiting, Administer if oral route cannot be used., Post-op * 0903 (See Alternative - Provider: Narcisa Brooke RN) ondansetron (ZOFRAN) injection 4 mg (COMPLETED) 4 mg, IntraVENous, ONCE PRN, 1 dose, Starting on Nella 12/24/21 at 1023, Until Nella 12/24/21 at 1042, Nausea, Initial antiemetic therapy., PACU only * 1042 (Given - Provider: Chris Marsh RN - Comment: nausea) ondansetron (ZOFRAN-ODT) disintegrating tablet 4 mg(Linked Group 2) 4 mg, Oral, EVERY 8 HOURS PRN, Starting on Nella 12/24/21 at 1125, Until Discontinued, Nausea, Vomiting, Post-op * 0903 (Given - Provider: Narcisa Brooke RN) oxyCODONE (ROXICODONE) immediate release tablet 10 mg(Linked Group 3) 10 mg, Oral, EVERY 4 HOURS PRN, Starting on Nella 12/24/21 at 1125, Until Discontinued, Pain Severe (7-10), Post-op * 1528 (Given - Provider: Rashida Molina RN) * 2236 (Given - Provider: Rufina Angelo RN) * 0421 (Given - Provider: Rufina Angelo RN) * 0903 (Given - Provider: Narcisa Brooke RN) * 1503 (Given - Provider: Narcisa Brooke RN) oxyCODONE (ROXICODONE) immediate release tablet 5 mg(Linked Group 3) 5 mg, Oral, EVERY 4 HOURS PRN, Starting on Nella 12/24/21 at 1125, Until Discontinued, Pain Moderate (4-6), Post-op * 1528 (See Alternative - Provider: Rashida Molina RN) * 2236 (See Alternative - Provider: Rufina Angelo RN) * 0421 (See Alternative - Provider: Rufina Angelo RN) * 0903 (See Alternative - Provider: Narcisa Brooke, RN) * 1503 (See Alternative - Provider: Narcisa Brooke, RN) polyethylene glycol (GLYCOLAX) packet 17 g 17 g, Oral, DAILY PRN, Starting on Nella 12/24/21 at 1125, Until Discontinued, Constipation, First line therapy for constipation, Post-op QUEtiapine (SEROQUEL) tablet 25 mg 25 mg, Oral, NIGHTLY PRN, Starting on Nella 12/24/21 at 2100, Until Discontinued, Agitation, sleep * 2236 (Given - Provider: Rufina Angelo, ROMÁN) sodium chloride 0.9 % 18 mL with ketorolac (TORADOL) 30 mg, morphine (PF) 10 mg, ropivacaine (NAROPIN) 30 mL (CANCELED) PRN, Starting on Nella 12/24/21 at 0935, Intra-op * 0936 (Given - Provider: Rodney Lamb MD - Comment: INJECTED IN JOINT CAPSULE AND SURROUNDING TISSUE) sodium chloride 0.9 % irrigation (CANCELED) CONTINUOUS PRN, Starting on Nella 12/24/21 at 0912, Intra-op * 0912 (New Bag - Provider: Rodney Lamb MD - Comment: IRRIGATION THROUGH PULSE LAVAGE, PRN) * 0913 (New Bag - Provider: Rodney Lamb MD - Comment: ON STERILE FIELD FOR INSTRUMENTS, PRN) * 0914 (New Bag - Provider: Rodney Lamb MD - Comment: ON STERILE FIELD FOR INSTRUMENTS, PRN) * 1200 (Stopped - Provider: Narcisa Brooke, ROMÁN) sodium chloride flush 0.9 % injection 5-40 mL 5-40 mL, IntraVENous, PRN, Starting on Nella 12/24/21 at 1125, Until Discontinued, Line Care, After every IV line use, For Line Patency: Peripheral IV = 5 mL; Midline or Central Line = 10 mL/lumen. If following IV push medication, administer flush at same rate as the IV push. Flush volume is determined by type of infusion therapy being given. For non-viscous solutions use: Peripheral IV = 5 mL Midline or Central Line = 10 mL/lumen For viscous solutions (i.e. blood components, parenteral nutrition,contrast media, or after obtaining blood sample) use: Peripheral IV = 10 mL Midline or Central Line= 20 mL/lumen, Post-op tiZANidine (ZANAFLEX) tablet 4 mg 4 mg, Oral, EVERY 6 HOURS PRN, Starting on Nella 12/24/21 at 1125, Until Discontinued, Muscle spasms Order Group 1: valsartan (DIOVAN) tablet 160 mgJump to med 160 mg, Oral, DAILY, First dose on Nella 12/24/21 at 1515, Until Discontinued And hydroCHLOROthiazide (HYDRODIURIL) tablet 25 mgJump to med 25 mg, Oral, DAILY, First dose on Nella 12/24/21 at 1515, Until Discontinued Group 2: ondansetron (ZOFRAN-ODT) disintegrating tablet 4 mgJump to med 4 mg, Oral, EVERY 8 HOURS PRN, Starting on Nella 12/24/21 at 1125, Until Discontinued, Nausea, Vomiting, Post-op Or ondansetron (ZOFRAN) injection 4 mgJump to med 4 mg, IntraVENous, EVERY 6 HOURS PRN, Starting on Nella 12/24/21 at 1125, Until Discontinued, Nausea, Vomiting
Administer if oral route cannot be used.
Post-op Group 3: oxyCODONE (ROXICODONE) immediate release tablet 5 mgJump to med 5 mg, Oral, EVERY 4 HOURS PRN, Starting on Nella 12/24/21 at 1125, Until Discontinued, Pain Moderate (4-6), Post-op Or oxyCODONE (ROXICODONE) immediate release tablet 10 mgJump to med 10 mg, Oral, EVERY 4 HOURS PRN, Starting on Nella 12/24/21 at 1125, Until Discontinued, Pain Severe (7-10), Post-op Goals (unrecognized section and content) Goals may be documented in a n alternate section Source Comments (unrecognize d section and content) In the event this informatio n is protected by the Federal Confidentiality of Alcohol and Drug Abuse Patient Records regulations: The Federal rules restrict any use of the information to criminally investigate or prosecute any alcohol or drug abuse patient.[facility] the event this information is protected by the Federal Confidentiality of Alcohol and Drug Abuse Patient Records regulations: The Federal rules restrict any use of the information to criminally investigate or prosecute any alcohol or drug abuse patient.[facility] HospitalIn the event this information is protected by the Federal Confidentiality of Alcohol and Drug Abuse Patient Records regulations: The Federal rules restrict any use of the information to criminally investigate or prosecute any alcohol or drug abuse patient.[facility] HospitalIn the event this information is protected by the Federal Confidentiality of Alcohol and Drug Abuse Patient Records regulations: The Federal rules restrict any use of the information to criminally investigate or prosecute any alcohol or drug abuse patient.[facility] HospitalIn the event this information is protected by the Federal Confidentiality of Alcohol and Drug Abuse Patient Records regulations: The Federal rules restrict any use of the information to criminally investigate or prosecute any alcohol or drug abuse patient.[facility] HospitalIn the event this information is protected by the Federal Confidentiality of Alcohol and Drug Abuse Patient Records regulations: The Federal rules restrict any use of the information to criminally investigate or prosecute any alcohol or drug abuse patient.[facility] HospitalIn the event this information is protected by the Federal Confidentiality of Alcohol and Drug Abuse Patient Records regulations: The Federal rules restrict any use of the information to criminally investigate or prosecute any alcohol or drug abuse patient.[facility] HospitalIn the event this information is protected by the Federal Confidentiality of Alcohol and Drug Abuse Patient Records regulations: The Federal rules restrict any use of the information to criminally investigate or prosecute any alcohol or drug abuse patient.[facility] HospitalIn the event this information is protected by the Federal Confidentiality of Alcohol and Drug Abuse Patient Records regulations: The Federal rules restrict any use of the information to criminally investigate or prosecute any alcohol or drug abuse patient.[facility] HospitalIn the event this information is protected by the Federal Confidentiality of Alcohol and Drug Abuse Patient Records regulations: The Federal rules restrict any use of the information to criminally investigate or prosecute any alcohol or drug abuse patient.[facility] HospitalIn the event this information is protected by the Federal Confidentiality of Alcohol and Drug Abuse Patient Records regulations: The Federal rules restrict any use of the information to criminally investigate or prosecute any alcohol or drug abuse patient.[facility] HospitalIn the event this information is protected by the Federal Confidentiality of Alcohol and Drug Abuse Patient Records regulations: The Federal rules restrict any use of the information to criminally investigate or prosecute any alcohol or drug abuse patient.[facility] HospitalIn the event this information is protected by the Federal Confidentiality of Alcohol and Drug Abuse Patient Records regulations: The Federal rules restrict any use of the information to criminally investigate or prosecute any alcohol or drug abuse patient.[facility] HospitalIn the event this information is protected by the Federal Confidentiality of Alcohol and Drug Abuse Patient Records regulations: The Federal rules restrict any use of the information to criminally investigate or prosecute any alcohol or drug abuse patient.[facility] HospitalIn the event this information is protected by the Federal Confidentiality of Alcohol and Drug Abuse Patient Records regulations: The Federal rules restrict any use of the information to criminally investigate or prosecute any alcohol or drug abuse patient.[facility] HospitalIn the event this information is protected by the Federal Confidentiality of Alcohol and Drug Abuse Patient Records regulations: The Federal rules restrict any use of the information to criminally investigate or prosecute any alcohol or drug abuse patient.[facility] HospitalIn the event this information is protected by the Federal Confidentiality of Alcohol and Drug Abuse Patient Records regulations: The Federal rules restrict any use of the information to criminally investigate or prosecute any alcohol or drug abuse patient.[facility] HospitalIn the event this information is protected by the Federal Confidentiality of Alcohol and Drug Abuse Patient Records regulations: The Federal rules restrict any use of the information to criminally investigate or prosecute any alcohol or drug abuse patient.[facility] HospitalIn the event this information is protected by the Federal Confidentiality of Alcohol and Drug Abuse Patient Records regulations: The Federal rules restrict any use of the information to criminally investigate or prosecute any alcohol or drug abuse patient.[facility] HospitalIn the event this information is protected by the Federal Confidentiality of Alcohol and Drug Abuse Patient Records regulations: The Federal rules restrict any use of the information to criminally investigate or prosecute any alcohol or drug abuse patient.[facility] HospitalIn the event this information is protected by the Federal Confidentiality of Alcohol and Drug Abuse Patient Records regulations: The Federal rules restrict any use of the information to criminally investigate or prosecute any alcohol or drug abuse patient.[facility] HospitalIn the event this information is protected by the Federal Confidentiality of Alcohol and Drug Abuse Patient Records regulations: The Federal rules restrict any use of the information to criminally investigate or prosecute any alcohol or drug abuse patient.[facility] HospitalIn the event this information is protected by the Federal Confidentiality of Alcohol and Drug Abuse Patient Records regulations: The Federal rules restrict any use of the information to criminally investigate or prosecute any alcohol or drug abuse patient.[facility] HospitalIn the event this information is protected by the Federal Confidentiality of Alcohol and Drug Abuse Patient Records regulations: The Federal rules restrict any use of the information to criminally investigate or prosecute any alcohol or drug abuse patient.[facility] HospitalIn the event this information is protected by the Federal Confidentiality of Alcohol and Drug Abuse Patient Records regulations: The Federal rules restrict any use of the information to criminally investigate or prosecute any alcohol or drug abuse patient.[facility] HospitalIn the event this information is protected by the Federal Confidentiality of Alcohol and Drug Abuse Patient Records regulations: The Federal rules restrict any use of the information to criminally investigate or prosecute any alcohol or drug abuse patient.[facility] HospitalIn the event this information is protected by the Federal Confidentiality of Alcohol and Drug Abuse Patient Records regulations: The Federal rules restrict any use of the information to criminally investigate or prosecute any alcohol or drug abuse patient.[facility] HospitalIn the event this information is protected by the Federal Confidentiality of Alcohol and Drug Abuse Patient Records regulations: The Federal rules restrict any use of the information to criminally investigate or prosecute any alcohol or drug abuse patient.[facility] HospitalIn the event this information is protected by the Federal Confidentiality of Alcohol and Drug Abuse Patient Records regulations: The Federal rules restrict any use of the information to criminally investigate or prosecute any alcohol or drug abuse patient.[facility] HospitalIn the event this information is protected by the Federal Confidentiality of Alcohol and Drug Abuse Patient Records regulations: The Federal rules restrict any use of the information to criminally investigate or prosecute any alcohol or drug abuse patient.[facility] HospitalIn the event this information is protected by the Federal Confidentiality of Alcohol and Drug Abuse Patient Records regulations: The Federal rules restrict any use of the information to criminally investigate or prosecute any alcohol or drug abuse patient.[facility] HospitalIn the event this information is protected by the Federal Confidentiality of Alcohol and Drug Abuse Patient Records regulations: The Federal rules restrict any use of the information to criminally investigate or prosecute any alcohol or drug abuse patient.[facility] HospitalIn the event this information is protected by the Federal Confidentiality of Alcohol and Drug Abuse Patient Records regulations: The Federal rules restrict any use of the information to criminally investigate or prosecute any alcohol or drug abuse patient.[facility] HospitalIn the event this information is protected by the Federal Confidentiality of Alcohol and Drug Abuse Patient Records regulations: The Federal rules restrict any use of the information to criminally investigate or prosecute any alcohol or drug abuse patient.[facility] HospitalIn the event this information is protected by the Federal Confidentiality of Alcohol and Drug Abuse Patient Records regulations: The Federal rules restrict any use of the information to criminally investigate or prosecute any alcohol or drug abuse patient.[facility] HospitalIn the event this information is protected by the Federal Confidentiality of Alcohol and Drug Abuse Patient Records regulations: The Federal rules restrict any use of the information to criminally investigate or prosecute any alcohol or drug abuse patient.[facility] HospitalIn the event this information is protected by the Federal Confidentiality of Alcohol and Drug Abuse Patient Records regulations: The Federal rules restrict any use of the information to criminally investigate or prosecute any alcohol or drug abuse patient.[facility] HospitalIn the event this information is protected by the Federal Confidentiality of Alcohol and Drug Abuse Patient Records regulations: The Federal rules restrict any use of the information to criminally investigate or prosecute any alcohol or drug abuse patient.[facility] HospitalIn the event this information is protected by the Federal Confidentiality of Alcohol and Drug Abuse Patient Records regulations: The Federal rules restrict any use of the information to criminally investigate or prosecute any alcohol or drug abuse patient.[facility] HospitalIn the event this information is protected by the Federal Confidentiality of Alcohol and Drug Abuse Patient Records regulations: The Federal rules restrict any use of the information to criminally investigate or prosecute any alcohol or drug abuse patient.[facility] HospitalIn the event this information is protected by the Federal Confidentiality of Alcohol and Drug Abuse Patient Records regulations: The Federal rules restrict any use of the information to criminally investigate or prosecute any alcohol or drug abuse patient.[facility] HospitalIn the event this information is protected by the Federal Confidentiality of Alcohol and Drug Abuse Patient Records regulations: The Federal rules restrict any use of the information to criminally investigate or prosecute any alcohol or drug abuse patient.[facility] HospitalIn the event this information is protected by the Federal Confidentiality of Alcohol and Drug Abuse Patient Records regulations: The Federal rules restrict any use of the information to criminally investigate or prosecute any alcohol or drug abuse patient.[facility] HospitalIn the event this information is protected by the Federal Confidentiality of Alcohol and Drug Abuse Patient Records regulations: The Federal rules restrict any use of the information to criminally investigate or prosecute any alcohol or drug abuse patient.[facility] HospitalIn the event this information is protected by the Federal Confidentiality of Alcohol and Drug Abuse Patient Records regulations: The Federal rules restrict any use of the information to criminally investigate or prosecute any alcohol or drug abuse patient.[facility] HospitalIn the event this information is protected by the Federal Confidentiality of Alcohol and Drug Abuse Patient Records regulations: The Federal rules restrict any use of the information to criminally investigate or prosecute any alcohol or drug abuse patient.[facility] HospitalIn the event this information is protected by the Federal Confidentiality of Alcohol and Drug Abuse Patient Records regulations: The Federal rules restrict any use of the information to criminally investigate or prosecute any alcohol or drug abuse patient.[facility] HospitalIn the event this information is protected by the Federal Confidentiality of Alcohol and Drug Abuse Patient Records regulations: The Federal rules restrict any use of the information to criminally investigate or prosecute any alcohol or drug abuse patient.[facility] HospitalIn the event this information is protected by the Federal Confidentiality of Alcohol and Drug Abuse Patient Records regulations: The Federal rules restrict any use of the information to criminally investigate or prosecute any alcohol or drug abuse patient.[facility] HospitalIn the event this information is protected by the Federal Confidentiality of Alcohol and Drug Abuse Patient Records regulations: The Federal rules restrict any use of the information to criminally investigate or prosecute any alcohol or drug abuse patient.[facility] Inactive Administered Medications - up to 3 most recent administrations Administered Medications (un recognized section and content) Medication OrderMAR ActionAction DateDoseRateSite methylPREDNISolone acetate 80 mg injection (DEPO-Medrol) 80 mg, INTRAMUSCULAR, ONCE, 1 dose, On Nella 05/26/23 at 1430 Given05/26/2023 2:32 PM EST80 mgHip, Left FOR RECORDS PERTAINING TO PATIENTS WHO ARE OR HAVE BEEN ENROLLED IN A CHEMICAL DEPENDENCY/SUBSTANCEABUSE PROGRAM, SOME INFORMATION MAY BE OMITTED. This clinical summary was aggregated from multiple sources. Caution should be exercised in using it in the provision of clinical care. This summary normalizes information from multiple sources, and as a consequence, information in this document may materially change the coding, format and clinical context of patient data. In addition, data may be omitted in some cases. CLINICAL DECISIONS SHOULD BE BASED ON THE PRIMARY CLINICAL RECORDS. [facility] [employer] [facility]. provides no warranty or guarantee of the accuracy or completeness of information in this document.
--- NOTE | 2025-03-13 11:39 | PC.NURSE ---
Nursing Note Cardiac Stress Test Reviewed: Medication, allergies and patient history reviewed. Stress Test: [ ]? Patient tolerated stress test well. [ ]? Patient unable to tolerate walking on treadmill. Switched to Lexiscan stress test. [ ]? No chest pain noted per patient [ x]? Chest pain that resolved prior to leaving stress lab. [ ]? No dyspnea noted. [x ]? Dyspnea that resolved prior to leaving stress lab. [x ]? Patient left stress lab asymptomatic and hemodynamically stable. [ ]? Patient taken to the Emergency Room due to non-resolving symptoms following stress test. [ ]? Patient achieved target heart rate. [ ]? Patient unable to achieve target heart rate. [ ]? Aminophylline administered as reversal agent to Lexiscan (Regadenoson). [ ]? Nitro administered. Nursing Comments:Patient complained of chest pressure, neck pressure, nausea with dry heaving, pain behind clavicles. Patient given Pepsi and started to feel better.
[2025-03-13] MEDS: REGADENOSON 0.4 MG/5 ML SYRINGE IV (12:05)
--- NOTE | 2025-03-14 09:31 | PM.STRESS ---
Stress Test Stress Test Requesting physician: Jonny De Anda Procedure: Lexiscan Cardiolite stress test General Information: Reason for Stress Test: [Preoperative evaluation] Cardiac History and Risk Factors: [] Resting 12 - Lead Electrocardiogram: Sinus bradycardia Septal infarct, age undetermined Abnormal EKG Stress Test: Protocol: [Lexiscan pharmacological stress test] Exercise Capacity: [N/A] Blood Pressure Response: [N/A] Rhythm: [Sinus, premature ventricular contractions] ST - Response: [No significant ST-T wave abnormalities] Patient Response: [Chest pressure, neck pressure, headache, nausea, left arm pain] Interpretation: 1. No ST-T wave abnormalities on Lexiscan pharmacological stress test 2. Nuclear images are to be read, interpreted, and reported separately
== END 2025-03-13 09:44 | disposition home or self-care (01) ==
LOC: NM 09:43
PROVIDERS: PCP Family Medicine; Visit Provider Internal Medicine Cardiovascular Disease
DX: Z01.818 Encounter for other preprocedural examination (principal); R07.89 Other chest pain; R06.09 Other forms of dyspnea
CPT/HCPCS: 78452; 93017; A9500; J2785